=== PATIENT | male | born 1965 | race African-American/Black ===

== ENCOUNTER 2018-05-06 11:07 | Emergency (ER) | payer SELFPAY | END 2018-05-06 11:23 | disposition left against medical advice (07) | LOC: ER 11:07 | DX: R06.02 Shortness of breath (principal); R06.01 Orthopnea; I10 Essential (primary) hypertension; J44.9 Chronic obstructive pulmonary disease, unspecified | CPT/HCPCS: 71045; 93005; 99284 ==

== ENCOUNTER 2018-08-06 09:16 | Emergency (ER) | payer SELFPAY ==
[~2018-08-06] VITALS: Ht 182.9 cm; Wt 102.1 kg
[~2018-08-06 09:16] MED LIST: AMLO10TA4 PO; ASPI-252 PO; ATOR20TA PO; Amoxicillin PO; BREO ELLIPTA 21 EACH IH; CARV12.52 PO; CETI10TA22 PO; CLOP75TA PO; FLUT16SP NS; FURO40TA4 PO; HYDR-2869 PO; HYDR12.58 PO; ISOS30TA4 PO; LISI1TAB7 PO; Lisinopril PO; PROAIR HFA8.5 GM INH
[2018-08-06] MEDS: FUROSEMIDE 20 MG TABLET PO ONE (10:10)
[2018-08-06] MEDS: amLODIPine BESYLATE 5 MG TABLET PO ONE (10:12)
[2018-08-06] MEDS: IPRATRPIUM/ALBUTEROL 0.5/2.5MG 3 ML NEBU. NEB ONE ×2 (10:12→12:19)
[2018-08-06] MEDS: BENZONATATE 100 MG CAPSULE. PO ONE (10:14)
[2018-08-06] MEDS: methylPREDNISolone SOD SUCC PF 125 MG/2 ML VIAL. IV ONE (10:15)
--- NOTE | 2018-08-06 10:15 | RAD ---
Portable chest, 08/06/2018: HISTORY: Shortness of breath, asthma Comparison is made to a study from 07/12/2018. The heart is mildly enlarged. There is tortuosity of the thoracic aorta. There is minimal linear atelectasis or scarring in the left lower chest laterally. No acute infiltrate is seen. There is no evidence of pleural fluid. IMPRESSION: 1. Mild cardiomegaly. 2. Mild linear atelectasis or scarring on the left. Electronically signed by: Nito Wilson MD (08/06/2018 10:12 AM) [facility]
--- NOTE | 2018-08-06 10:33 | EKG ---
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
[2018-08-06 10:37] LABS: BASO % 1 % (0-3); EOS # 0.1 x10^3/uL (0.0-0.7); EOS % 1 % (0-3); HEMATOCRIT 42.3 % (39.0-53.0); HEMOGLOBIN 14.1 g/dL (13.0-17.5); LYMPH # 1.6 x10^3/uL (1.0-4.8); LYMPH % 24 % (24-48); MEAN CORPUSCULAR HEMOGLOBIN 26 pg (25-35); MEAN CORPUSCULAR HGB CONC 33 g/dL (31-37); MEAN CORPUSCULAR VOLUME 77 fL (79-100); MONO # 0.9 x10^3/uL (0.0-1.1); MONO % 13 % (0-9); NEUT # 4.2 x10^3uL (1.8-7.7); NEUT % 61 % (31-73); PLATELET COUNT 287 x10^3/uL (140-400); RED BLOOD COUNT 5.47 x10^6/uL (4.30-5.70); WHITE BLOOD COUNT 6.8 x10^3/uL (4.0-11.0)
[2018-08-06 10:55] LABS: CALCIUM 9.9 mg/dL (8.5-10.1); CREATININE 1.9 mg/dL (0.7-1.3); GFR 45.4; POTASSIUM 3.6 mmol/L (3.5-5.1)
[2018-08-06] MEDS: ASPIRIN 325 MG TABLET PO ONE (12:17)
[2018-08-06] MEDS: cloNIDine HCL 0.1 MG TABLET PO ONE (12:19)
[2018-08-06 12:30] VITALS: BP 166/114
--- NOTE | 2018-08-06 12:43 | PHYS DOC ---
Past Medical History Past Medical History: CHF, COPD, High Cholesterol, Hypertension, [place] Additional Past Medical Histor: UPPER GI BLEED, irregular heart beat, BEV Past Surgical History: Tonsillectomy, Other Additional Past Surgical Histo: cardiac cath with stent placement Alcohol Use: None Drug Use: None Adult General Chief Complaint Chief Complaint: COUGH HPI HPI Patient is a 53 year old male with history of hypertension, COPD current smoker , high cholesterol, who presents today complaining of a productive cough and shortness of breath for 3 days. Patient states he has tried using his inhalers with no relief. He states his shortness of breath is worse after episodes of coughing. Patient denies any fever. Review of Systems Review of Systems Constitutional: Denies fever or chills [] Eyes: Denies change in visual acuity, redness, or eye pain [] HENT: Denies nasal congestion or sore throat [] Respiratory: Reports cough and shortness of breath [] Cardiovascular: No additional information not addressed in HPI [] GI: Denies abdominal pain, nausea, vomiting, bloody stools or diarrhea [] : Denies dysuria or hematuria [] Musculoskeletal: Denies back pain or joint pain [] Integument: Denies rash or skin lesions [] Neurologic: Denies headache, focal weakness or sensory changes [] All other systems were reviewed and found to be within normal limits, except as documented in this note. Current Medications Current Medications Current Medications Medications (Trade) Dose Ordered Sig/[facility] Start Time Stop Time Status Last Admin Dose Admin Albuterol/ Ipratropium (Duoneb) 3 ml 1X ONCE 08/06/18 11:45 08/06/18 11:46 DC 08/06/18 12:19 3 ML Amlodipine Besylate (Norvasc) 10 mg 1X ONCE 08/06/18 10:00 08/06/18 10:01 DC 08/06/18 10:12 10 MG Aspirin (Nilson Aspirin) 325 mg 1X ONCE 08/06/18 11:45 08/06/18 11:46 DC 08/06/18 12:17 325 MG Benzonatate (Tessalon Perle) 100 mg 1X ONCE 08/06/18 09:45 08/06/18 09:46 DC 08/06/18 10:14 100 MG Clonidine HCl (Catapres) 0.2 mg 1X ONCE 08/06/18 11:45 08/06/18 11:46 DC 08/06/18 12:19 0.2 MG Furosemide (Lasix) 20 mg 1X ONCE 08/06/18 10:00 08/06/18 10:01 DC 08/06/18 10:10 20 MG Hydralazine HCl (Apresoline) 50 mg 1X STAT 08/06/18 09:43 08/06/18 09:49 DC 08/06/18 10:11 50 MG Methylprednisolone Sodium Succinate (SOLU-Medrol 125MG VIAL) 125 mg 1X ONCE 08/06/18 09:45 08/06/18 09:46 DC 08/06/18 10:15 125 MG Allergies Allergies Allergies Coded Allergies Type Severity Reaction Last Updated Verified No Known Drug Allergies 05/08/15 No Physical Exam Physical Exam Constitutional: Well developed, well nourished, no acute distress, non-toxic appearance. [] HENT: Normocephalic, atraumatic, bilateral external ears normal, oropharynx moist, no oral exudates, nose normal. [] Eyes: PERRLA, EOMI, conjunctiva normal, no discharge. [] Neck: Normal range of motion, no tenderness, supple, no stridor. [] Cardiovascular:Heart rate regular rhythm, no murmur [] Lungs & Thorax: Diminished breath sounds to posterior lung bases, patient appears short of breath on exertion. Abdomen: Bowel sounds normal, soft, no tenderness, no masses, no pulsatile masses. [] Skin: Warm, dry, no erythema, no rash. [] Back: No tenderness, no CVA tenderness. [] Extremities: No tenderness, no cyanosis, no clubbing, ROM intact, no edema. [] Neurologic: Alert and oriented X 3, normal motor function, normal sensory function, no focal deficits noted. [] Psychologic: Affect normal, judgement normal, mood normal. [] Current Patient Data Vital Signs Vital Signs Date Time Temp Pulse Resp B/P (MAP) Pulse Ox O2 Delivery O2 Flow Rate FiO2 08/06/18 12:30 104 32 166/114 (131) 95 08/06/18 12:20 Room Air 08/06/18 09:18 97.7 97.7 Lab Values Laboratory Tests Test 08/06/18 10:10 White Blood Count 6.8 x10^3/uL (4.0-11.0) Red Blood Count 5.47 x10^6/uL (4.30-5.70) Hemoglobin 14.1 g/dL (13.0-17.5) Hematocrit 42.3 % (39.0-53.0) Mean Corpuscular Volume 77 fL (79-100) L Mean Corpuscular Hemoglobin 26 pg (25-35) Mean Corpuscular Hemoglobin Concent 33 g/dL (31-37) Red Cell Distribution Width 17.0 % (11.5-14.5) H Platelet Count 287 x10^3/uL (140-400) Neutrophils (%) (Auto) 61 % (31-73) Lymphocytes (%) (Auto) 24 % (24-48) Monocytes (%) (Auto) 13 % (0-9) H Eosinophils (%) (Auto) 1 % (0-3) Basophils (%) (Auto) 1 % (0-3) Neutrophils # (Auto) 4.2 x10^3uL (1.8-7.7) Lymphocytes # (Auto) 1.6 x10^3/uL (1.0-4.8) Monocytes # (Auto) 0.9 x10^3/uL (0.0-1.1) Eosinophils # (Auto) 0.1 x10^3/uL (0.0-0.7) Basophils # (Auto) 0.0 x10^3/uL (0.0-0.2) Sodium Level 143 mmol/L (136-145) Potassium Level 3.6 mmol/L (3.5-5.1) Chloride Level 104 mmol/L (98-107) Carbon Dioxide Level 30 mmol/L (21-32) Anion Gap 9 (6-14) Blood Urea Nitrogen 18 mg/dL (8-26) Creatinine 1.9 mg/dL (0.7-1.3) H Estimated GFR (Cockcroft-Gault) 45.4 Glucose Level 100 mg/dL (70-99) H Calcium Level 9.9 mg/dL (8.5-10.1) Magnesium Level 2.0 mg/dL (1.8-2.4) Troponin I Quantitative 0.570 ng/mL (0.000-0.055) FX-Vbw-A-Type Natriuretic Peptide 1707 pg/mL (0-124) H Thyroid Stimulating Hormone (TSH) 0.304 uIU/mL (0.358-3.74) L Laboratory Tests 08/06/18 10:10 Laboratory Tests 08/06/18 10:10 EKG EKG Interpreted by Dr. Amado, sinus tachycardia with left bundle branch block HR 101 no STEMI. EKG compared with previous EKG and it looks better.[] Radiology/Procedures Radiology/Procedures []PROCEDURE: PORTABLE CHEST 1V Portable chest, 08/06/2018: HISTORY: Shortness of breath, asthma Comparison is made to a study from 07/12/2018. The heart is mildly enlarged. There is tortuosity of the thoracic aorta. There is minimal linear atelectasis or scarring in the left lower chest laterally. No acute infiltrate is seen. There is no evidence of pleural fluid. IMPRESSION: 1. Mild cardiomegaly. 2. Mild linear atelectasis or scarring on the left. Electronically signed by: Nito Wilson MD (08/06/2018 10:12 AM) [facility] DICTATED and SIGNED BY: NITO WILSON MD DATE: 08/06/18 1010 Course & Med Decision Making Course & Med Decision Making Pertinent Labs and Imaging studies reviewed. (See chart for details) This is a 53-year-old male patient presenting to the ED today with a productive cough and shortness of breath for 3 days. Has history of COPD, current smoker. Patient was advised again a smoking cessation Chest x-ray interpreted by radiologist was negative for any acute findings. CBC with normal WBC, CMP with creatinine of 1.9 BUN 18. Troponin 0.570, patient states his troponin has been elevated for long time and he follows up with a lead technical architect at [facility] who is planning to do a biopsy on his heart. Patient was given a DuoNeb treatment in the ED. Also given Solu-Medrol. He was still short of air on exertion. He was offered admission, he refused and signed out AMA. He states yesterday take care of the was also a patient is being admitted. His BP is also been an IV in the 170s over 120s. We gave him blood pressure medications in the ED. Talked to patient about admission. He declined. Signed out AMA. Instructed to return to the ED at any point his symptoms worsen. He is alert oriented 4 and able to make decisions on his own. Ingris: Staff Physician Addendum: I was working in the ER during the course of this patient's visit. I was available for consultation as needed, but I was not directly involved in the care of this patient. I was not involved in the against medical advice conversation. Dragon Disclaimer Dragon Disclaimer This electronic medical record was generated, in whole or in part, using a voice recognition dictation system. Departure Departure Impression: Primary Impression: COPD (chronic obstructive pulmonary disease) Additional Impressions: Renal failure (ARF), acute on chronic Shortness of breath Elevated troponin Disposition: AGAINST MEDICAL ADVICE Condition: STABLE Referrals: Simba BAEZA MD (PCP) Scripts Prednisone (PREDNISONE) 50 Mg Tablet 1 TAB PO DAILY, #5 TAB Prov: BRIDGETT JONES APRN 08/06/18 Problem Qualifiers Primary Impression: COPD (chronic obstructive pulmonary disease) COPD type: unspecified COPD Qualified Codes: J44.9 - Chronic obstructive pulmonary disease, unspecified Additional Impressions: Renal failure (ARF), acute on chronic Acute renal failure type: unspecified Chronic kidney disease stage: unspecified stage Qualified Codes: N17.9 - Acute kidney failure, unspecified; N18.9 - Chronic kidney disease, unspecified BRIDGETT JONES APRN Aug 06, 2018 12:43 FABIAN AMADO MD Aug 06, 2018 17:57
[2018-08-06] MEDS ORDERED: PRED50TA PO (13:08)
[2018-08-07] MEDS ORDERED: VENTOLIN HFA18 GM INH (20:27)
[2018-08-07] MEDS ORDERED: PRED20TA PO (20:27)
[2018-08-10] MEDS ORDERED: PRED20TA PO (15:29)
[2018-08-10] MEDS ORDERED: DOXY100T PO (15:29)
== END 2018-08-06 13:02 | disposition left against medical advice (07) ==
LOC: ER 09:16
DX: J44.9 Chronic obstructive pulmonary disease, unspecified (principal); R79.89 Other specified abnormal findings of blood chemistry; I13.0 Hypertensive heart and chronic kidney disease with heart failure and stage 1 through stage 4 chronic kidney disease, or unspecified chronic kidney disease; N18.9 Chronic kidney disease, unspecified; I50.9 Heart failure, unspecified; N17.9 Acute kidney failure, unspecified; I25.2 Old myocardial infarction; E78.00 Pure hypercholesterolemia, unspecified; G47.33 Obstructive sleep apnea (adult) (pediatric); Z90.89 Acquired absence of other organs
CPT/HCPCS: 36415; 71045; 80048; 83735; 83880; 84443; 84484; 85025; 93005; 94640; 96374; 99285; J2930; J7620

== ENCOUNTER 2018-08-07 16:20 | Emergency (ER) | payer SELFPAY ==
[~2018-08-07] VITALS: Ht 180.3 cm; Wt 102.1 kg
[~2018-08-07 16:20] MED LIST changes: +PRED50TA PO
[2018-08-07] MEDS: IPRATRPIUM/ALBUTEROL 0.5/2.5MG 3 ML NEBU. NEB ONE (16:37)
[2018-08-07] MEDS: ALBUTEROL SULFATE 2.5 MG/3 ML NEBU. NEB ONE (17:00)
[2018-08-07] MEDS: methylPREDNISolone SOD SUCC PF 125 MG/2 ML VIAL. IV ONE (17:20)
[2018-08-07] MEDS: AZITHROMYCIN 250 MG TABLET. PO ONE (17:20)
[2018-08-07] MEDS: ALBUTEROL SULFATE 2.5 MG/3 ML NEBU. CONT NEB ONE (17:21)
--- NOTE | 2018-08-07 17:45 | RAD ---
PORTABLE CHEST 1V Clinical Indication: Dyspnea, hx of COPD Comparison: AP chest, prior day. Findings: Stable mild cardiomegaly. Mildly tortuous thoracic aorta. Reticular opacity in the right lung base is probably atelectasis. Lungs are otherwise clear. Discoid atelectasis in the lateral left lung on prior study has resolved. There is no pneumothorax. No pleural effusion is appreciated. No acute bone abnormality. IMPRESSION: Reticular opacity in the right lung base is probably atelectasis. Electronically signed by: Wan Alonzo MD (08/07/2018 5:41 PM) [id number]
--- NOTE | 2018-08-07 17:54 | PHYS DOC ---
Past Medical History Past Medical History: CHF, COPD, Hypertension Additional Past Medical Histor: UPPER GI BLEED, irregular heart beat, BEV Past Surgical History: No Surgical History Additional Past Surgical Histo: cardiac cath with stent placement Additional Information: 5 CIGS/DAY Alcohol Use: None Drug Use: None Adult General Chief Complaint Chief Complaint: SHORTNESS OF BREATH HPI HPI Patient is a 53 year old male who presents with COPD flare. Patient states he has been visiting a family member in the hospital today and has not been able to take his COPD medications. He presents to the ER with acute shortness of breath. Patient normally does use inhaled steroids at home and scheduled albuterol treatments. He does endorse some increased cough lately compared to normal. No fever or chills. He does not have chest pain. No orthopnea or lower extremity edema. Review of Systems Review of Systems Constitutional: Denies fever or chills Eyes: Denies HENT: Denies Respiratory: as documented above Cardiovascular: No additional information GI: Denies abdominal pain : Denies dysuria or hematuria Musculoskeletal: Denies back pain Integument: Denies rash Neurologic: Denies headache Endocrine: Denies polyuria All other systems were reviewed and found to be within normal limits, except as documented in this note. Current Medications Current Medications Current Medications Medications (Trade) Dose Ordered Sig/Deepa Start Time Stop Time Status Last Admin Dose Admin Albuterol Sulfate (Ventolin Neb Soln) 10 mg 1X ONCE 08/07/18 17:00 08/07/18 17:01 DC 08/07/18 17:21 10 MG Albuterol/ Ipratropium (Duoneb) 3 ml 1X ONCE 08/07/18 16:30 08/07/18 17:00 DC 08/07/18 16:37 3 ML Azithromycin (Zithromax) 500 mg 1X ONCE 08/07/18 17:15 08/07/18 17:16 DC 08/07/18 17:20 500 MG Furosemide (Lasix) 40 mg 1X ONCE 08/07/18 18:45 08/07/18 18:48 DC 08/07/18 19:20 40 MG Hydralazine HCl (Apresoline) 50 mg 1X STAT 08/07/18 18:59 08/07/18 19:01 DC 08/07/18 19:22 50 MG Methylprednisolone Sodium Succinate (SOLU-Medrol 125MG VIAL) 125 mg 1X ONCE 08/07/18 17:15 08/07/18 17:16 DC 08/07/18 17:20 125 MG Nitroglycerin (Nitro-Bid Oint) 2 inch 1X STAT 08/07/18 18:44 08/07/18 18:48 DC 08/07/18 19:21 2 INCH Allergies Allergies Allergies Coded Allergies Type Severity Reaction Last Updated Verified No Known Drug Allergies 05/08/15 No Physical Exam Physical Exam Constitutional: Well developed, well nourished, moderate respiratory distress HENT: Normocephalic, atraumatic, bilateral external ears normal Eyes: PERRLA, EOMI Neck: Normal range of motion, no JVD Cardiovascular:Heart rate regular rhythm Lungs & Thorax: wheezes in all [place] and diminished air movement, moderate increased work of breathing Abdomen: Bowel sounds normal, soft, no tenderness Skin: Warm, dry Extremities: No edema Neurologic: Alert and oriented X 3 Psychologic: Affect normal Current Patient Data Vital Signs Vital Signs Date Time Temp Pulse Resp B/P (MAP) Pulse Ox O2 Delivery O2 Flow Rate FiO2 08/07/18 19:39 94 18 164/117 (133) 94 Room Air 08/07/18 16:37 97.7 97.7 Lab Values Laboratory Tests Test 08/07/18 16:30 White Blood Count 13.9 x10^3/uL (4.0-11.0) H Red Blood Count 5.65 x10^6/uL (4.30-5.70) Hemoglobin 14.5 g/dL (13.0-17.5) Hematocrit 44.5 % (39.0-53.0) Mean Corpuscular Volume 79 fL (79-100) Mean Corpuscular Hemoglobin 26 pg (25-35) Mean Corpuscular Hemoglobin Concent 33 g/dL (31-37) Red Cell Distribution Width 17.6 % (11.5-14.5) H Platelet Count 306 x10^3/uL (140-400) Neutrophils (%) (Auto) 65 % (31-73) Lymphocytes (%) (Auto) 25 % (24-48) Monocytes (%) (Auto) 9 % (0-9) Eosinophils (%) (Auto) 0 % (0-3) Basophils (%) (Auto) 0 % (0-3) Neutrophils # (Auto) 9.0 x10^3uL (1.8-7.7) H Lymphocytes # (Auto) 3.5 x10^3/uL (1.0-4.8) Monocytes # (Auto) 1.3 x10^3/uL (0.0-1.1) H Eosinophils # (Auto) 0.0 x10^3/uL (0.0-0.7) Basophils # (Auto) 0.1 x10^3/uL (0.0-0.2) Sodium Level 142 mmol/L (136-145) Potassium Level 4.1 mmol/L (3.5-5.1) Chloride Level 103 mmol/L (98-107) Carbon Dioxide Level 29 mmol/L (21-32) Anion Gap 10 (6-14) Blood Urea Nitrogen 30 mg/dL (8-26) H Creatinine 1.9 mg/dL (0.7-1.3) H Estimated GFR (Cockcroft-Gault) 45.4 Glucose Level 105 mg/dL (70-99) H Calcium Level 9.3 mg/dL (8.5-10.1) Troponin I Quantitative 0.517 ng/mL (0.000-0.055) IM-Zjk-V-Type Natriuretic Peptide 1111 pg/mL (0-124) H Laboratory Tests 08/07/18 16:30 Laboratory Tests 08/07/18 16:30 EKG EKG ECG 19:16 ST @[address]-T wave changes Radiology/Procedures Radiology/Procedures Findings: Stable mild cardiomegaly. Mildly tortuous thoracic aorta. Reticular opacity in the right lung base is probably atelectasis. Lungs are otherwise clear. Discoid atelectasis in the lateral left lung on prior study has resolved. There is no pneumothorax. No pleural effusion is appreciated. No acute bone abnormality. IMPRESSION: Reticular opacity in the right lung base is probably atelectasis. Course & Med Decision Making Course & Med Decision Making Pertinent Labs and Imaging studies reviewed. (See chart for details) Emergency Department course Patient presents with SOB DDx- COPD exacerbation, CHF, ACS, pneumonia, PE Patient is evaluated on arrival to the ER. He is having COPD exacerbation. He was ordered to have Solu-Medrol and azithromycin. Chest x-ray ordered. 17:30: Continued wheezes and increased respiratory distress. Additional hour- long nebulized treatment is ordered. Chest x-ray as documented above. Would treat this patient for pneumonia. He was already given azithromycin. 18:00: Transfer of care to Dr. Rondon. Please f/u on symptom relief. Patient can be discharged home if improved. 18:45 Patient assessed and he has increased work of breathing with coarse breath sounds bilaterally. Patient in addition having COPD also has a history of CHF and takes 40 mg of Lasix twice daily with hydralazine. He doesn't take TYRELL inhibitors, because of TYRELL inhibitor induced angioedema. The patient is hypertensive and I will give him oral hydralazine, (IV hydralazine is not available currently), Nitropaste to chest wall and Lasix to improve blood pressure, preload and afterload reduction. Will reassess after treatment. 19:45 Patient feels better with decreased shortness breath and decreased work of breathing. Blood pressure has decreased though he still hypertensive. I spoke with the patient and offered him admission to the hospital. He refused admission. I gave him informed refusal and stated that he is at high risk for noting that he has elevated troponin, uncontrolled hypertension and likely underlying congestive heart failure causing his symptoms. He understood these risks of and signed out AGAINST MEDICAL ADVICE. Dragon Disclaimer Dragon Disclaimer This electronic medical record was generated, in whole or in part, using a voice recognition dictation system. Departure Departure Impression: Primary Impression: Acute exacerbation of COPD with asthma Additional Impressions: CHF (congestive heart failure) Hypertensive emergency Refuses treatment Left against medical advice Disposition: 07 AGAINST MEDICAL ADVICE Condition: GUARDED (Offered admission. Patient has hypertensive emergency with COPD, CHF,elevated troponin, renal insufficiency) Referrals: Simba BAEZA MD (PCP) Follow-up with your doctor tomorrow Patient Instructions: Chronic Obstructive Pulmonary Disease Exacerbation, Heart Failure, Hypertension Additional Instructions: If you develop worse shortness of breath, chest pain, weakness, fevers return to the emergency department immediately Scripts Albuterol Sulfate (VENTOLIN HFA INHALER) 18 Gm Hfa.aer.ad 2 PUFF INH Q4HRS for FOR ASTHMA for 20 Days, #1 INHALER 0 Refills Prov: NAKIA RONDON MD 08/07/18 Prednisone (PREDNISONE) 20 Mg Tablet 2 TAB PO DAILY, #10 TAB Prov: NAKIA RONDON MD 9/25/18 Problem Qualifiers HARJINDER BALL DO Aug 07, 2018 17:54 NAKIA RONDON MD Aug 07, 2018 18:52
[2018-08-07 17:56] LABS: BASO # 0.1 x10^3/uL (0.0-0.2); BASO % 0 % (0-3); EOS % 0 % (0-3); HEMATOCRIT 44.5 % (39.0-53.0); HEMOGLOBIN 14.5 g/dL (13.0-17.5); LYMPH # 3.5 x10^3/uL (1.0-4.8); LYMPH % 25 % (24-48); MEAN CORPUSCULAR HEMOGLOBIN 26 pg (25-35); MEAN CORPUSCULAR HGB CONC 33 g/dL (31-37); MEAN CORPUSCULAR VOLUME 79 fL (79-100); MONO # 1.3 x10^3/uL (0.0-1.1); MONO % 9 % (0-9); NEUT % 65 % (31-73); PLATELET COUNT 306 x10^3/uL (140-400); RED BLOOD COUNT 5.65 x10^6/uL (4.30-5.70); RED CELL DISTRIBUTION WIDTH 17.6 % (11.5-14.5); WHITE BLOOD COUNT 13.9 x10^3/uL (4.0-11.0)
[2018-08-07 18:07] LABS: CALCIUM 9.3 mg/dL (8.5-10.1); CREATININE 1.9 mg/dL (0.7-1.3); GFR 45.4; POTASSIUM 4.1 mmol/L (3.5-5.1)
[2018-08-07] MEDS: FUROSEMIDE 40 MG/4 ML VIAL. IVP ONE (19:20)
[2018-08-07] MEDS: NITROGLYCERIN OINT 1 GM PACKET. TP STA (19:21)
[2018-08-07 19:39] VITALS: BP 164/117
--- NOTE | 2018-08-07 20:11 | EKG ---
[facility] [address] [place] [address] Test Date: 2018-08-07 Test Time: 19:13:00 Pat Name: KIRBY GARCIA Department: Room: Gender: M [employer] Feeder: : 1965 Requested By: NAKIA ALONSO Order Number: [id number] Reading MD: Og Romero Measurements Intervals [place] Rate: 102 P: 62 OR: 136 QRS: -43 QRSD: 104 T: 80 QT: 350 QTc: 460 Interpretive Statements SINUS TACHYCARDIA ATRIAL PREMATURE COMPLEX(ES) ABNORMAL LEFT AXIS DEVIATION R-S TRANSITION ZONE IN V LEADS DISPLACED TO THE LEFT LEFT ANTERIOR FASCICULAR BLOCK LEFT VENTRICULAR HYPERTROPHY QRS(T) CONTOUR ABNORMALITY CONSIDER ANTEROSEPTAL MYOCARDIAL DAMAGE T ABNORMALITY IN HIGH LATERAL LEADS ABNORMAL ECG Electronically Signed On 08-08-2018 15:26:36 CDT by Og Romero
[2018-08-07] MEDS ORDERED: VENTOLIN HFA18 GM INH (20:27)
[2018-08-07] MEDS ORDERED: PRED20TA PO (20:27)
[2018-08-10] MEDS ORDERED: PRED20TA PO (15:29)
[2018-08-10] MEDS ORDERED: DOXY100T PO (15:29)
== END 2018-08-07 20:36 | disposition left against medical advice (07) ==
LOC: ER 16:20
DX: J44.1 Chronic obstructive pulmonary disease with (acute) exacerbation (principal); I16.1 Hypertensive emergency; I11.0 Hypertensive heart disease with heart failure; I50.9 Heart failure, unspecified; F17.210 Nicotine dependence, cigarettes, uncomplicated; G47.33 Obstructive sleep apnea (adult) (pediatric); Z53.20 Procedure and treatment not carried out because of patient's decision for unspecified reasons
CPT/HCPCS: 36415; 71045; 80048; 83880; 84484; 85025; 93005; 94640; 96374; 96375; 99285; J1940; J2930; J7613; J7620; Q0144

== ENCOUNTER 2018-12-21 06:47 | Inpatient (IN) | payer SELFPAY ==
[2018-12-21] VITALS (17 sets, daily range): BP systolic 92–163; BP diastolic 67–108
[~2018-12-21] VITALS: Ht 165.1 cm; Wt 88.6 kg
[~2018-12-21 06:47] MED LIST changes: +ALBU2.5V8 INH; +AMLO10TA8 PO; +ASPI-630 PO; +CARV12.511 PO; -CARV12.52 PO; +DOXY100T PO; +PRED20TA PO; -PROAIR HFA8.5 GM INH; +Pantoprazole PO; +VENTOLIN HFA18 GM INH
[2018-12-21] MEDS ORDERED: IPRATROPIUM BROMIDE 0.5 MG/2.5 ML NEBU. NEB ONE (07:00)
[2018-12-21] MEDS ORDERED: MAGNESIUM SULFATE 2GM 50 ML IV ONE (07:00)
[2018-12-21] MEDS ORDERED: methylPREDNISolone SOD SUCC PF 125 MG/2 ML VIAL. IV ONE (07:00)
[2018-12-21] MEDS ORDERED: ALBUTEROL SULFATE 2.5 MG/3 ML NEBU. CONT NEB ONE (07:00)
[2018-12-21 07:06] LABS: BASE EXCESS ABG -18 mmol/L (-3-3); HCO3 ABG 16 mmol/L (21-28); PO2 ABG 153 mmHg (75-108); SAT O2 ABG 97 % (92-99)
[2018-12-21 07:17] LABS: BASO # 0.1 x10^3/uL (0.0-0.2); BASO % 1 % (0-3); EOS # 0.1 x10^3/uL (0.0-0.7); EOS % 1 % (0-3); HEMATOCRIT 34.9 % (39.0-53.0); HEMOGLOBIN 9.7 g/dL (13.0-17.5); LYMPH # 4.5 x10^3/uL (1.0-4.8); LYMPH % 34 % (24-48); MEAN CORPUSCULAR HEMOGLOBIN 19 pg (25-35); MEAN CORPUSCULAR HGB CONC 28 g/dL (31-37); MEAN CORPUSCULAR VOLUME 68 fL (79-100); MONO # 0.9 x10^3/uL (0.0-1.1); MONO % 7 % (0-9); NEUT # 7.5 x10^3uL (1.8-7.7); NEUT % 57 % (31-73); PLATELET COUNT 377 x10^3/uL (140-400); RED BLOOD COUNT 5.16 x10^6/uL (4.30-5.70); RED CELL DISTRIBUTION WIDTH 23.6 % (11.5-14.5); WHITE BLOOD COUNT 13.2 x10^3/uL (4.0-11.0)
[2018-12-21] MEDS ORDERED: PROPOFOL 50 ML IV ONE ×2 (07:21→09:55)
[2018-12-21] MEDS ORDERED: ETOMIDATE 20 MG/10 ML VIAL. IV ONE ×2 (07:21→08:20)
[2018-12-21 07:22] LABS: CALCIUM 9.7 mg/dL (8.5-10.1); CREATININE 2.1 mg/dL (0.7-1.3); GFR 40.5; POTASSIUM 3.8 mmol/L (3.5-5.1)
[2018-12-21] MEDS ORDERED: VECURONIUM BOLUS 10 MG VIAL. IV ONE ×3 (07:22→08:20)
[2018-12-21] MEDS ORDERED: MIDAZOLAM HCL/PF 5 MG/5 ML VIAL. IV ONE ×2 (07:24→08:45)
[2018-12-21] MEDS ORDERED: IV NORMAL SALINE 1000ML BAG 1,000 ML IV ONE (07:30)
[2018-12-21] MEDS ORDERED: PROPOFOL 100 ML IV PRN (07:30)
[2018-12-21 07:36] LABS: ALBUMIN 3.2 g/dL (3.4-5.0); ALBUMIN/GLOBULIN RATIO 0.7 (1.0-1.7); TOTAL BILIRUBIN 0.5 mg/dL (0.2-1.0); TOTAL PROTEIN 7.5 g/dL (6.4-8.2)
[2018-12-21 07:43] LABS: ANISOCYTOSIS MOD; PLT ESTIMATE ADEQUATE (ADEQUATE)
[2018-12-21 07:44] LABS: MICROCYTOSIS PRESENT; POLYCHROMASIA OCCASIONAL
[2018-12-21] MEDS ORDERED: SODIUM BICARBONATE VIAL 150 MEQ in IV STERILE WATER 1,000 ML IV ONE (07:45)
[2018-12-21 07:46] LABS: OVALOCYTES OCC
--- NOTE | 2018-12-21 07:59 | RAD ---
Examination: PORTABLE CHEST 1V History: dyspnea Comparison/Correlation: 10/09/2018 two-view chest x-ray exam Findings: Portable frontal view chest was obtained. Heart size is borderline but this may be in part technique related. Bony vasculature is mildly congested. No pneumothorax. Very small pleural effusions are suspected. Impression: Congestive heart failure. Very small pleural effusions. Electronically signed by: Cj Franklin MD (12/21/2018 7:55 AM) [facility]
--- NOTE | 2018-12-21 08:04 | RAD ---
CHEST AP ONLY History: POST INTUBATION Comparison: Exam earlier the same day Findings: Single view of the chest is submitted. There is now endotracheal tube with tip about 4 to 5 cm from yue. There is now enteric catheter, tip coursing into region of the stomach although may be at the gastroesophageal junction, otherwise difficult to visualize. There is fairly prominent airspace opacity of the right hemithorax overall increased in the short-term interval greatest of mid right hemithorax and perihilar region. There is also interstitial opacity of the bilateral lung bases. No pneumothorax is identified. There may be trace pleural effusions bilaterally. Pericardial cardiac silhouette is again enlarged. Impression: 1. There is now endotracheal tube and enteric catheter, tip of enteric catheter which may terminate near the gastroesophageal junction although otherwise difficult to visualize. There is interval increased airspace opacity of the right hemithorax greatest in the perihilar region which may be due to to edema given progression in the short-term interval although underlying infiltrate not excluded. There is also bibasilar interstitial opacity which could be due to interstitial edema and suspected trace pleural effusions. Given the enlarged pericardial cardiac silhouette, constellation of findings could be related to left ventricular failure. Electronically signed by: Davey Sow MD (12/21/2018 7:59 AM) [id number]
[2018-12-21] MEDS ORDERED: MIDAZOLAM HCL/PF 5 MG/5 ML VIAL. ONE (08:21)
[2018-12-21] MEDS ORDERED: FUROSEMIDE 100 MG/10 ML VIAL. ONE (08:36)
--- NOTE | 2018-12-21 08:44 | PHYS DOC ---
Past Medical History Past Medical History: CHF, COPD, Hypertension Additional Past Medical Histor: UPPER GI BLEED, irregular heart beat, BEV Past Surgical History: No Surgical History Additional Past Surgical Histo: cardiac cath with stent placement Alcohol Use: None Drug Use: None Adult General Chief Complaint Chief Complaint: DYSPNEA/RESPIRATOY DISTRESS HPI HPI Patient is a 53-year-old male who presents via EMS with respiratory distress. EMS reports that call had gone out for chest pain but by the time they had arrived, patient was clearly in respiratory distress. They indicate that they had tried to place patient on BiPAP but he was combative and pulled the BiPAP off. Upon patient's arrival, nursing staff indicates the patient's initial saturation was 39%. Shortly after arrival, patient's respirations became diminished and patient was initiated on BiPAP right away. Patient's middle status had improved and was assisting with BiPAP respirations. Additional history is limited due to patient's initial mental state on arriving to the emergency room. Review of Systems Review of Systems Respiratory: Positive shortness of breath [] Cardiovascular: No additional information not addressed in HPI [] Neurologic: Positive mental status changes [] Unable to fully assess review of systems due to altered mental state. Current Medications Current Medications Current Medications Medications (Trade) Dose Ordered Sig/Deepa Start Time Stop Time Status Last Admin Dose Admin Albuterol Sulfate (Ventolin Neb Soln) 10 mg 1X ONCE 12/21/18 07:00 12/21/18 07:03 DC 12/21/18 08:45 10 MG Etomidate (Amidate) 25 mg 1X ONCE 12/21/18 07:21 12/21/18 08:39 DC 12/21/18 07:21 25 MG Furosemide (Lasix) 100 mg STK-MED ONCE 12/21/18 08:36 12/21/18 08:39 DC Ipratropium [place] (Atrovent) 0.5 mg 1X ONCE 12/21/18 07:00 12/21/18 07:03 DC 12/21/18 08:48 0.5 MG Magnesium Sulfate 50 ml @ 25 mls/hr 1X ONCE 12/21/18 07:00 12/21/18 08:59 DC 12/21/18 07:56 25 MLS/HR Methylprednisolone Sodium Succinate (SOLU-Medrol 125MG VIAL) 125 mg 1X ONCE 12/21/18 07:00 12/21/18 07:03 DC 12/21/18 08:05 125 MG Metoprolol Tartrate (Lopressor Vial) 5 mg 1X ONCE 12/21/18 08:45 12/21/18 08:46 DC Midazolam HCl (Versed) 5 mg 1X ONCE 12/21/18 09:45 12/21/18 09:48 DC 12/21/18 09:48 5 MG Propofol 50 ml @ As Directed STK-MED ONCE 12/21/18 09:55 12/21/18 09:57 DC Sodium Bicarbonate 150 meq/Sterile Water 1,150 ml @ 125 mls/hr 1X ONCE 12/21/18 07:45 12/21/18 16:56 DC 12/21/18 07:57 125 MLS/HR Sodium Chloride 1,000 ml @ 1,000 mls/hr 1X ONCE 12/21/18 07:30 12/21/18 08:29 DC 12/21/18 07:00 1,000 MLS/HR Vecuronium [place] (Norcuron Bolus) 10 mg 1X ONCE 12/21/18 07:25 12/21/18 08:39 DC 12/21/18 07:25 10 MG Allergies Allergies Allergies Coded Allergies Type Severity Reaction Last Updated Verified lisinopril Allergy Severe Swelling 08/09/18 Yes Physical Exam Physical Exam Constitutional: Well developed, well nourished, in moderate respiratory distress. [] HENT: Normocephalic, atraumatic, bilateral external ears normal, oropharynx moist, no oral exudates, nose normal. [] Eyes: PERRLA, EOMI, conjunctiva normal, no discharge. [] Neck: Normal range of motion, supple, no stridor. [] Cardiovascular: Tachycardic rate with regular rhythm [] Lungs & Thorax: Diminished breath sounds are noted throughout both lung estrada. There are rales noted in the lung bases bilaterally to auscultation [] Abdomen: Bowel sounds normal, soft, no tenderness. [] Skin: Warm, dry, no erythema, no rash. [] Extremities: No tenderness, no clubbing, ROM intact, no edema. [] Neurologic: Disoriented �3, normal motor function. [] Current Patient Data Vital Signs Vital Signs Date Time Temp Pulse Resp B/P (MAP) Pulse Ox O2 Delivery O2 Flow Rate FiO2 12/21/18 09:50 90 142/97 (112) 100 Ventilator 12/21/18 06:55 97.7 26 97.7 Lab Values Laboratory Tests Test 12/21/18 06:55 12/21/18 07:02 12/21/18 07:05 12/21/18 07:48 White Blood Count 13.2 x10^3/uL (4.0-11.0) H Red Blood Count 5.16 x10^6/uL (4.30-5.70) Hemoglobin 9.7 g/dL (13.0-17.5) L Hematocrit 34.9 % (39.0-53.0) L Mean Corpuscular Volume 68 fL (79-100) L Mean Corpuscular Hemoglobin 19 pg (25-35) L Mean Corpuscular Hemoglobin Concent 28 g/dL (31-37) L Red Cell Distribution Width 23.6 % (11.5-14.5) H Platelet Count 377 x10^3/uL (140-400) Neutrophils (%) (Auto) 57 % (31-73) Lymphocytes (%) (Auto) 34 % (24-48) Monocytes (%) (Auto) 7 % (0-9) Eosinophils (%) (Auto) 1 % (0-3) Basophils (%) (Auto) 1 % (0-3) Neutrophils # (Auto) 7.5 x10^3uL (1.8-7.7) Lymphocytes # (Auto) 4.5 x10^3/uL (1.0-4.8) Monocytes # (Auto) 0.9 x10^3/uL (0.0-1.1) Eosinophils # (Auto) 0.1 x10^3/uL (0.0-0.7) Basophils # (Auto) 0.1 x10^3/uL (0.0-0.2) Platelet Estimate Adequate (ADEQUATE) Polychromasia Occasional Anisocytosis Mod Microcytosis Present Ovalocytes Occ Sodium Level 144 mmol/L (136-145) Potassium Level 3.8 mmol/L (3.5-5.1) Chloride Level 108 mmol/L (98-107) H Carbon Dioxide Level 20 mmol/L (21-32) L Anion Gap 16 (6-14) H Blood Urea Nitrogen 23 mg/dL (8-26) Creatinine 2.1 mg/dL (0.7-1.3) H Estimated GFR (Cockcroft-Gault) 40.5 BUN/Creatinine Ratio 11 (6-20) Glucose Level 185 mg/dL (70-99) H Lactic Acid Level 7.1 mmol/L (0.4-2.0) *H Calcium Level 9.7 mg/dL (8.5-10.1) Total Bilirubin 0.5 mg/dL (0.2-1.0) Aspartate Amino Transferase (AST) 45 U/L (15-37) H Alanine Aminotransferase (ALT) 32 U/L (16-63) Alkaline Phosphatase 99 U/L (46-116) Troponin I Quantitative 0.299 ng/mL (0.000-0.055) BH-Svo-V-Type Natriuretic Peptide 5034 pg/mL (0-124) H Total Protein 7.5 g/dL (6.4-8.2) Albumin 3.2 g/dL (3.4-5.0) L Albumin/Globulin Ratio 0.7 (1.0-1.7) L Glucose (Fingerstick) 147 mg/dL (70-99) H O2 Saturation 97 % (92-99) Arterial Blood pH 6.90 (7.35-7.45) *L Arterial Blood pCO2 at Patient Temp 81 mmHg (35-46) *H Arterial Blood pO2 at Patient Temp 153 mmHg (75-108) H Arterial Blood HCO3 16 mmol/L (21-28) L Arterial Blood Base Excess -18 mmol/L (-3-3) L FiO2 100 Urine Opiates Screen Neg (NEG) Urine Methadone Screen Neg (NEG) Urine Barbiturates Neg (NEG) Urine Phencyclidine Screen Neg (NEG) Urine Amphetamine/Methamphetamine Neg (NEG) Urine Benzodiazepines Screen Neg (NEG) Urine Cocaine Screen Pos (NEG) Urine Cannabinoids Screen Neg (NEG) Urine Ethyl Alcohol Neg (NEG) Test 12/21/18 09:00 O2 Saturation 88 % (92-99) L Arterial Blood pH 7.27 (7.35-7.45) L Arterial Blood pCO2 at Patient Temp 48 mmHg (35-46) H Arterial Blood pO2 at Patient Temp 68 mmHg (75-108) L Arterial Blood HCO3 21 mmol/L (21-28) Arterial Blood Base Excess -6 mmol/L (-3-3) L FiO2 70 Laboratory Tests 12/21/18 06:55 Laboratory Tests 12/21/18 06:55 EKG EKG [] Radiology/Procedures Radiology/Procedures [] Impressions: CHEST AP ONLY History: POST INTUBATION Comparison: Exam earlier the same day Findings: Single view of the chest is submitted. There is now endotracheal tube with tip about 4 to 5 cm from yue. There is now enteric catheter, tip coursing into region of the stomach although may be at the gastroesophageal junction, otherwise difficult to visualize. There is fairly prominent airspace opacity of the right hemithorax overall increased in the short-term interval greatest of mid right hemithorax and perihilar region. There is also interstitial opacity of the bilateral lung bases. No pneumothorax is identified. There may be trace pleural effusions bilaterally. Pericardial cardiac silhouette is again enlarged. Impression: 1. There is now endotracheal tube and enteric catheter, tip of enteric catheter which may terminate near the gastroesophageal junction although otherwise difficult to visualize. There is interval increased airspace opacity of the right hemithorax greatest in the perihilar region which may be due to to edema given progression in the short-term interval although underlying infiltrate not excluded. There is also bibasilar interstitial opacity which could be due to interstitial edema and suspected trace pleural effusions. Given the enlarged pericardial cardiac silhouette, constellation of findings could be related to left ventricular failure. Electronically signed by: Davey Sow MD (12/21/2018 7:59 AM) [facility] Course & Med Decision Making Course & Med Decision Making Pertinent Labs and Imaging studies reviewed. (See chart for details) Patient moved to room upon arrival was evaluated by your medical staff while simultaneously, patient placed on BiPAP. It quickly became evident that patient was not going to be able to maintain his airway for extended period of time, and at this time, it was decided patient would best benefit from intubation, especially after reviewing initial blood gas. At this point, patient was prepped for intubation and was pretreated with etomidate and vecuronium. Patient was subsequently intubated via glide scope with insertion of 7.5 ET tube. Portable chest x-ray demonstrated good placement of ET tube. Endotracheal Intubation by me: Pre assessment performed. See preceding note for details. Pre-oxygenation performed with 100% oxygen RSI: Performed w/o complication or hypoxic events. Medications as ordered. Blade: [place] scope ET Tube: 7.5 cm Depth: 24 cm at the lip Intubation confirmed by colorimetric CO2, equal breath sounds, quiet over the stomach. Patient's case was quickly discussed with on-call chemistry professor, Dr. Dumont, who had agreed with intubation of this patient. Upon completion of workup, patient' s case was discussed with hospitalist and patient admitted to ICU. A total of 45 minutes of critical care time, exclusive of separately billable procedures, was spent on this patient. This time was inclusive of direct face-to -face patient care, discussion of patient's case with consultants, ordering and reviewing of both radiological and laboratory studies, and finally on documentation of this patient's medical record. Dragon Disclaimer Dragon Disclaimer This electronic medical record was generated, in whole or in part, using a voice recognition dictation system. Departure Departure Impression: Primary Impression: Acute hypercapnic respiratory failure Additional Impressions: Respiratory acidosis CHF (congestive heart failure) Disposition: 09 ADMITTED INPATIENT Admitting Physician: Other Condition: GUARDED Referrals: UNKNOWN PCP NAME (PCP) Problem Qualifiers Additional Impressions: CHF (congestive heart failure) Heart failure type: unspecified Heart failure chronicity: unspecified Qualified Codes: I50.9 - Heart failure, unspecified ROBIN ALMEIDA Jr. DO Dec 21, 2018 08:44
[2018-12-21] MEDS ORDERED: METOPROLOL TARTRATE 5 MG/5 ML VIAL. IVP ONE (08:45)
[2018-12-21] MEDS ORDERED: FUROSEMIDE 40 MG/4 ML VIAL. IVP ONE (08:45)
[2018-12-21 09:02] LABS: BASE EXCESS ABG -6 mmol/L (-3-3); HCO3 ABG 21 mmol/L (21-28); PCO2 ABG 48 mmHg (35-46); PO2 ABG 68 mmHg (75-108); SAT O2 ABG 88 % (92-99)
[2018-12-21 09:36] LABS: PCO2 ABG 81 mmHg (35-46)
[2018-12-21 09:37] LABS: FIO2 ABG 100
[2018-12-21 09:38] LABS: FIO2 ABG 70
[2018-12-21] MEDS ORDERED: MIDAZOLAM HCL/PF 5 MG/5 ML VIAL. NS ONE ×2 (09:45→11:30)
--- NOTE | 2018-12-21 11:20 | EKG ---
[facility] [address] [place] [address] Test Date: 2018-12-21 Test Time: 06:52:55 Pat Name: KIRBY GARCIA Department: Room: 111 1 Gender: M Spring Winder: : 1965 Requested By: ROBIN ALMEIDA Order Number: [id number] Reading MD: Sergio Caro MD Measurements Intervals [place] Rate: 116 P: [place]: QRS: -71 QRSD: 100 T: 65 QT: 324 QTc: 456 Interpretive Statements SR LAD NON-SPECIFIC ST/T CHANGES Electronically Signed On 12-27-2018 9:09:49 WARPER FIXER by Sergio Caro MD
[2018-12-21 11:36] LABS: INFLUENZA A PATIENT NEGATIVE (NEGATIVE); INFLUENZA B PATIENT NEGATIVE (NEGATIVE)
[2018-12-21 11:51] LABS: BASE EXCESS ABG -4 mmol/L (-3-3); HCO3 ABG 21 mmol/L (21-28); PCO2 ABG 36 mmHg (35-46); PO2 ABG 185 mmHg (75-108); SAT O2 ABG 99 % (92-99)
[2018-12-21 11:55] LABS: FIO2 ABG 70
--- NOTE | 2018-12-21 11:59 | CONS ---
DATE OF CONSULTATION: ATTENDING PHYSICIAN: Dr. Joe Cisse. REASON FOR CONSULTATION: Respiratory failure, abnormal chest x-ray. HISTORY OF PRESENT ILLNESS: The patient is a 53-year-old who has history of cardiomyopathy with an EF of 40%-45% and grade 4 diastolic dysfunction. 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 The patient has history of CAD and PCI. He was last admitted in September for chest pain and was found to be in congestive heart failure. He was brought back again in respiratory distress. He has also had chest pain as well on arrival. The patient's saturations were 39% on arrival. Initial arterial blood gases reveal a pH of 6.9 with a pCO2 of 81 and a pO2 of 153 with a bicarb of 16. He was initially attempted on BiPAP, but due to his altered mental status, ER physician spoke with me and I recommended to place him on a ventilator. The patient is now intubated. His subsequent ABGs showed a pH of 7.27, pCO2 of 40 and a pO2 of 68 with a bicarb of 21 on 70% FiO2. His chest x-rays have been reviewed, pre and post-intubation and they are consistent with congestive heart failure. He has more interstitial lung infiltrates on the right than on the left. Endotracheal tube is in satisfactory position. He was hypertensive on arrival. Currently, he is on assist control rate of 24, 70% FiO2 and PEEP of 8. 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 No PE by V/Q scan during his previous admission in September. History of coronary artery disease, history of PCI in 06/2017 and then recath at in 12/2017. History of chronic systolic and diastolic congestive heart failure, history of secondary pulmonary hypertension, history of underlying COPD. PAST SURGICAL HISTORY: No recent surgeries except previous cardiac stents. ALLERGIES: LISINOPRIL. MEDICATIONS: Medications that were given in the ER were reviewed. REVIEW OF SYSTEMS: Unable to obtain from the patient. PHYSICAL EXAMINATION: VITAL SIGNS: Reviewed. His blood pressure has been as high as 172 systolic and 119 diastolic, currently 124/92. Pulse ox is 100%. HEENT: Sclerae nonicteric. NECK: Supple. LUNGS: With diminished breath sounds. CARDIOVASCULAR: Regular rate. ABDOMEN: Soft. EXTREMITIES: With trace pitting edema. LABORATORY DATA: Reviewed. ABGs are discussed in my history of present illness. Lactic acid was 7.1, BUN 23, creatinine 2.1. His troponin level 0.29. ProBNP is 5034. Albumin is 3.2. White cell count 13.2, hemoglobin 9.7 and platelets are 377. IMPRESSION: 1. Acute hypoxic and hypercapnic respiratory failure secondary to [id number] systolic and diastolic heart failure. 2. The patient with known cardiomyopathy with an EF of 40%-45% and also grade 4 diastolic dysfunction, now comes in with hypertensive urgency and likely triggering congestive heart failure. 3. 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 4. History of coronary artery disease, status post stents. 5. Underlying chronic obstructive pulmonary disease. 6. Abnormal chest x-ray, likely consistent with congestive heart failure. 7. We need to rule out any substance abuse. RECOMMENDATIONS: 1. Continue with present assist control mode with gradual wean of the FiO2 and PEEP. 2. Follow ABGs and make necessary adjustments. 3. Follow renal function. 4. Lactic acidosis, likely related to impaired perfusion rather than sepsis. We will monitor to see a downward trend. 5. Follow Cardiology's recommendations. 6. Anticipate extubation in the next 24 hours. 7. Monitor blood pressure closely and follow Cardiology's recommendation. 8. DVT and stress ulcer prophylaxis. 9. I do not see a need for another thromboembolic workup as he had similar presentation a few months ago and V/Q scan was negative. 10. Discussed with RN, RT and ER physician and we will follow along with you. Critical care time 40 minutes. RILEY BURR MD DR: JESSIE/kathryn JOB#: [id number] / [id number]
--- NOTE | 2018-12-21 12:04 | RAD ---
Single view portable AP abdomen HISTORY: OG tube placement. FINDINGS: OG tube is identified, with tip overlying the left upper quadrant, and tip overlying the gastric air bubble. There is mild infiltrate or atelectasis in the left lung base. May be a small left pleural effusion. Note that the image is centered at the left upper quadrant. IMPRESSION: OG tube appears to be within the stomach. Electronically signed by: Inocencio Ozuna MD (12/21/2018 12:00 PM) [facility]
[2018-12-21] MEDS: PROPOFOL 100 ML IV PRN ×3 (12:15→22:00)
[2018-12-21 12:36] LABS: BARBITURATES NEG (NEG); CANNABINOIDS NEG (NEG); METHADONE NEG (NEG); OPIATES NEG (NEG); PHENCYCLIDINE NEG (NEG)
[2018-12-21 12:38] LABS: BENZODIAZEPINES NEG (NEG)
--- NOTE | 2018-12-21 12:38 | NUR ---
Patient admitted to room 111 at 1100 via bed from ED. Report received from Marisabel POLANCO. Patient intubated, on Propofol gtt. Orders received from Dr. Dumont to start PPI, maintain Propofol gtt, Lovenox. ABG done. Daily CXR ordered. Patient's , Jesús, at bedside. Not certain about medication compliance. Pharmacy remains the same. Cardiology consulted. Patient's BP improved with Propofol gtt increasing. More sedated/calm as well.
[2018-12-21 12:47] LABS: AMPHETAMINE/METHAMPHETAMINE NEG (NEG)
[2018-12-21 12:50] LABS: COCAINE POS (NEG)
--- NOTE | 2018-12-21 13:00 | NUR ---
RN notified Dr. Dumont of [place] [facility], positive sepsis screen. Order received to stop IVF. Patient hypertensive. Order received to not give IV fluid bolus per sepsis protocol. RN notified Stacy romo/ cardiology of positive tox screen.
[2018-12-21] MEDS: ENOXAPARIN 40 MG/0.4 ML SYRINGE. SQ SCH (13:50)
[2018-12-21] MEDS ORDERED: FAMOTIDINE 20 MG/2 ML VIAL IVP SCH (14:00)
--- NOTE | 2018-12-21 14:21 | PDOC2 ---
SHRAVAN WOOD TRAIN ATTENDANT 12/21/18 1421: CARDIAC CONSULT DATE OF CONSULT Date of Consult DATE: 12/21/18 TIME: 14:19 REASON FOR CONSULT Reason for Consult: CHF REFERRING PHYSICIAN Referring Physician: Dr. Mary SOURCE Source: Caregiver, Chart review HISTORY OF PRESENT ILLNESS HISTORY OF PRESENT ILLNESS This is a 53 yo male who presented secondary to respiratory distress. at bedside. Reports shortness of breath has been ongoing for the last couple weeks. Progressively worsening. Profound today; EMS called. Patient initially placed on BiPAP, but was combative.Oxygen saturations were 39% upon arrival. Was placed back on BiPAP in ED, but due to diminished mental status, patient was intubated. denies any reports of chest pain, palpitations, dizziness, diaphoresis, or nausea/vomiting. Has had some lower extremity edema for the last couple of days. No recent illness/fevers. Has a history of CAD s/p PCI/stent 06/2017 and recath at 12/2017 that showed patent diagonal stent with mild disease to LAD. 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 Patient has failed followup for further workup. PAST MEDICAL HISTORY Past Medical History Cardiovascular: CAD, CHF, HTN, Hyperlipidemia, Other (cardiomyopathy), valvular insufficiency, suspected amyloidosis Pulmonary: Asthma, COPD, severe pulmonary HTN, BEV with CPAP CENTRAL NERVOUS SYSTEM: Other (No pertinent history) GI: PUD, GI bleed Heme/Onc: No pertinent hx Hepatobiliary: No pertinent hx Psych: No pertinent hx Musculoskeletal: Osteoarthritis Rheumatologic: No pertinent hx Infectious disease: No pertinent hx ENT: Allergic Rhinitis Renal/: CKD Endocrine: No pertinent hx Dermatology: No pertinent hx PAST SURGICAL HISTORY Past Surgical History Tonsillectomy, Other (PCI/stent 06/2017 at ) FAMILY HISTORY Family History: Hypertension SOCIAL HISTORY Social History Social History Smoke: <1 pack per day ALCOHOL: none Drugs: Cocaine Lives: with Family CURRENT MEDICATIONS CURRENT MEDICATIONS Current Medications Medications (Trade) Dose Ordered Sig/Deepa Route PRN Reason Start Time Stop Time Status Last Admin Dose Admin Ipratropium Fabius (Atrovent) 0.5 mg 1X ONCE NEB 12/21/18 07:00 12/21/18 07:03 DC 12/21/18 08:48 Methylprednisolone Sodium Succinate (SOLU-Medrol 125MG VIAL) 125 mg 1X ONCE IV 12/21/18 07:00 12/21/18 07:03 DC 12/21/18 08:05 Albuterol Sulfate (Ventolin Neb Soln) 10 mg 1X ONCE CONT NEB 12/21/18 07:00 12/21/18 07:03 DC 12/21/18 08:45 Magnesium Sulfate 50 ml @ 25 mls/hr 1X ONCE IV 12/21/18 07:00 12/21/18 08:59 DC 12/21/18 07:56 Sodium Chloride 1,000 ml @ 1,000 mls/hr 1X ONCE IV 12/21/18 07:30 12/21/18 08:29 DC 12/21/18 07:00 Propofol 100 ml @ 0 mls/hr CONT PRN IV SEE PROTOCOL 12/21/18 07:30 12/21/18 11:56 DC 12/21/18 07:29 Sodium Bicarbonate 150 meq/Sterile Water 1,150 ml @ 125 mls/hr 1X ONCE IV 12/21/18 07:45 12/21/18 16:56 12/21/18 07:57 Etomidate (Amidate) 25 mg 1X ONCE IV 12/21/18 07:21 12/21/18 08:39 DC 12/21/18 07:21 Vecuronium Fabius (Norcuron Bolus) 10 mg 1X ONCE IV 12/21/18 07:22 12/21/18 08:39 DC 12/21/18 07:22 Midazolam HCl (Versed) 5 mg 1X ONCE IV 12/21/18 07:24 12/21/18 08:39 DC 12/21/18 07:24 Vecuronium Fabius (Norcuron Bolus) 10 mg 1X ONCE IV 12/21/18 07:25 12/21/18 08:39 DC 12/21/18 07:25 Furosemide (Lasix) 80 mg 1X ONCE IVP 12/21/18 08:45 12/21/18 08:46 DC 12/21/18 08:44 Midazolam HCl (Versed) 5 mg 1X ONCE IV 12/21/18 08:45 12/21/18 08:46 DC 12/21/18 08:41 Midazolam HCl (Versed) 5 mg 1X ONCE NS 12/21/18 09:45 12/21/18 09:48 DC 12/21/18 09:48 Midazolam HCl (Versed) 5 mg 1X ONCE NS 12/21/18 11:30 12/21/18 11:31 DC 12/21/18 10:45 Famotidine (Pepcid Vial) 20 mg BID IVP 12/21/18 14:00 12/21/18 13:50 Propofol 100 ml @ 0 mls/hr CONT PRN IV SEE I/O RECORD 12/21/18 11:45 12/21/18 12:15 Enoxaparin Sodium (Lovenox 40mg Syringe) 40 mg Q24H SQ 12/21/18 14:00 12/21/18 13:50 ALLERGIES ALLERGIES: Coded Allergies: lisinopril (Verified Allergy, Severe, Swelling, 08/09/18) caused throat swelling ROS Review of System unobtainable PHYSICAL EXAM General: Other (sedated) HEENT: Atraumatic Lungs: Other (bibasilar crackles, mechanical ventil) Heart: Regular rate, Other (2/6 systolic murmur) Abdomen: Soft Extremities: Other (1-2+ bilateral LE edema ) Skin: No significant lesion Neuro: Other (sedated ) Psych/Mental Status: Other (unable to assess) MUSCULOSKELETAL: No deformity VITALS VITALS Vital Signs Date Time Temp Pulse Resp B/P (MAP) Pulse Ox O2 Delivery O2 Flow Rate FiO2 12/21/18 14:00 91 24 137/97 (110) 100 Ventilator 12/21/18 11:15 98.8 98.8 LABS Lab: Laboratory Tests Test 12/21/18 06:55 12/21/18 07:02 12/21/18 07:05 12/21/18 07:48 White Blood Count 13.2 x10^3/uL (4.0-11.0) Red Blood Count 5.16 x10^6/uL (4.30-5.70) Hemoglobin 9.7 g/dL (13.0-17.5) Hematocrit 34.9 % (39.0-53.0) Mean Corpuscular Volume 68 fL (79-100) Mean Corpuscular Hemoglobin 19 pg (25-35) Mean Corpuscular Hemoglobin Concent 28 g/dL (31-37) Red Cell Distribution Width 23.6 % (11.5-14.5) Platelet Count 377 x10^3/uL (140-400) Neutrophils (%) (Auto) 57 % (31-73) Lymphocytes (%) (Auto) 34 % (24-48) Monocytes (%) (Auto) 7 % (0-9) Eosinophils (%) (Auto) 1 % (0-3) Basophils (%) (Auto) 1 % (0-3) Neutrophils # (Auto) 7.5 x10^3uL (1.8-7.7) Lymphocytes # (Auto) 4.5 x10^3/uL (1.0-4.8) Monocytes # (Auto) 0.9 x10^3/uL (0.0-1.1) Eosinophils # (Auto) 0.1 x10^3/uL (0.0-0.7) Basophils # (Auto) 0.1 x10^3/uL (0.0-0.2) Platelet Estimate Adequate (ADEQUATE) Polychromasia Occasional Anisocytosis Mod Microcytosis Present Ovalocytes Occ Sodium Level 144 mmol/L (136-145) Potassium Level 3.8 mmol/L (3.5-5.1) Chloride Level 108 mmol/L (98-107) Carbon Dioxide Level 20 mmol/L (21-32) Anion Gap 16 (6-14) Blood Urea Nitrogen 23 mg/dL (8-26) Creatinine 2.1 mg/dL (0.7-1.3) Estimated GFR (Cockcroft-Gault) 40.5 BUN/Creatinine Ratio 11 (6-20) Glucose Level 185 mg/dL (70-99) Lactic Acid Level 7.1 mmol/L (0.4-2.0) Calcium Level 9.7 mg/dL (8.5-10.1) Total Bilirubin 0.5 mg/dL (0.2-1.0) Aspartate Amino Transf (AST/SGOT) 45 U/L (15-37) Alanine Aminotransferase (ALT/SGPT) 32 U/L (16-63) Alkaline Phosphatase 99 U/L (46-116) Troponin I Quantitative 0.299 ng/mL (0.000-0.055) FY-Jtk-P-Type Natriuretic Peptide 5034 pg/mL (0-124) Total Protein 7.5 g/dL (6.4-8.2) Albumin 3.2 g/dL (3.4-5.0) Albumin/Globulin Ratio 0.7 (1.0-1.7) Glucose (Fingerstick) 147 mg/dL (70-99) O2 Saturation 97 % (92-99) Arterial Blood pH 6.90 (7.35-7.45) Arterial Blood pCO2 at Patient Temp 81 mmHg (35-46) Arterial Blood pO2 at Patient Temp 153 mmHg (75-108) Arterial Blood HCO3 16 mmol/L (21-28) Arterial Blood Base Excess -18 mmol/L (-3-3) FiO2 100 Urine Opiates Screen Neg (NEG) Urine Methadone Screen Neg (NEG) Urine Barbiturates Neg (NEG) Urine Phencyclidine Screen Neg (NEG) Urine Amphetamine/Methamphetamine Neg (NEG) Urine Benzodiazepines Screen Neg (NEG) Urine Cocaine Screen Pos (NEG) Urine Cannabinoids Screen Neg (NEG) Urine Ethyl Alcohol Neg (NEG) Test 12/21/18 09:00 12/21/18 10:46 12/21/18 11:40 12/21/18 12:10 O2 Saturation 88 % (92-99) 99 % (92-99) Arterial Blood pH 7.27 (7.35-7.45) 7.38 (7.35-7.45) Arterial Blood pCO2 at Patient Temp 48 mmHg (35-46) 36 mmHg (35-46) Arterial Blood pO2 at Patient Temp 68 mmHg (75-108) 185 mmHg (75-108) Arterial Blood HCO3 21 mmol/L (21-28) 21 mmol/L (21-28) Arterial Blood Base Excess -6 mmol/L (-3-3) -4 mmol/L (-3-3) FiO2 70 70 Influenza Type A Antigen Negative (NEGATIVE) Influenza Type B Antigen Negative (NEGATIVE) Lactic Acid Level 1.2 mmol/L (0.4-2.0) ECHOCARDIOGRAM ECHOCARDIOGRAM <Conclusion> Left ventricle systolic function is mildly impaired. The Ejection Fraction is 40-45%. There is severe concentric left ventricular hypertrophy. Transmitral Doppler flow pattern is Grade IV-fixed restrictive diastolic dysfunction. The left atrium is moderately dilated. Mild aortic regurgitation. Moderate mitral regurgitation. Mild tricuspid regurgitation. There is moderate-severe pulmonary hypertension. The PA pressure was estimated at 64 mmHg. There is no evidence of significant pericardial effusion. DATE: 07/12/18 1111 ASSESSMENT/PLAN ASSESSMENT/PLAN 1. Acute on chronic respiratory failure secondary to a/c HF; s/p intubation 2. 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 3. NSTEMI: h/o chronic troponin elevation; Initial troponin 0.299. Most probably type 2 demand mediated with multiple culprits as noted above 4. Leukocytosis, lactic acidosis 5. CAD: PCI/stent 06/2017 and cath at 12/2017 with patent diagonal stent with mild disease to LAD. 6. COPD with severe pulmonary HTN with continued tobaccoism 7. HTN; controlled 8. Hyperlipidemia; statin 9. Valvular insufficiency 10. 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 Failed follow up and further w/u due to financial constraints of loss of ins. 11. CKD; CR stable per review 12. Hx of recent PUD/GI bleed 13. Substance abuse; UDS + cocaine Recommendations Trend troponin Diuresis with monitoring of renal function Resume secondary prevention measures as able Lung optimization as per pulmonary Supportive care JELENA GRACIA MD 12/21/18 1540: CARDIAC CONSULT ASSESSMENT/PLAN ASSESSMENT/PLAN Patient seen and examined. Agree with REVIVAL CLERK's assessment and plan. Acute respiratory failure secondary to acute on chronic combined systolic and diastolic heart failure Non-STEMI most probably demand ischemia Last 2-D echo showed LVEF 40-45%, severe diastolic dysfunction probably from amyloidosis for which he was being worked up at Continue diuresis CAD status clinically stable Continue vent management per pulmonary team Thank you for your consultation SHRAVAN WOOD APRN Dec 21, 2018 14:21 JELENA GRACIA MD Dec 21, 2018 15:40
--- NOTE | 2018-12-21 15:59 | CARD ---
MR#: [id number] Date of Study: 12/21/2018 Ordering Physician: PHILIP ROMERO, Referring Physician: CRISTINA MITCHELL Tech: Ling Galo RDCS APPROVED REPORT EXAM: Two-dimensional and M-mode echocardiogram with Doppler and color Doppler. Other Information Quality : GoodHR: 85bpm Rhythm : NSR INDICATION Congestive Heart Failure 2D DIMENSIONS RVDd3.9 (2.9-3.5cm)Left Atrium(2D)5.3 (1.6-4.0cm) IVSd1.8 (0.7-1.1cm)Aortic Root(2D)3.0 (2.0-3.7cm) LVDd6.8 (3.9-5.9cm)LVOT Diameter1.9 (1.8-2.4cm) PWd1.2 (0.7-1.1cm)LVDs5.4 (2.5-4.0cm) FS (%) 20.4 %SV96.2 ml M-Mode DIMENSIONS Left Atrium(MM)5.23 (2.5-4.0cm)Aortic Root3.87 (2.2-3.7cm) Aortic Valve AoV Peak Esau.152.8cm/sAoV VTI28.6cm AO Peak GR.9.3mmHgLVOT Peak Esau.95.9cm/s AO Mean GR.5mmHgAVA (VMAX)1.85cm2 MAURA (VTI)1.58uo2HL P 1/2 [id number] Mitral Valve MV E Enmthgeh78.7cm/sMV DECEL [id number] MV A Bndgrbif58.6cm/sE/A Ratio1.5 MV A [id number] Pulmonary Valve PV Peak Barlynyr434.9cm/s Tricuspid Valve TR P. Bpqpjqrl689kb/sRAP [id number] TR Peak Gr.[id number] LEFT VENTRICLE The Left Ventricle is borderline dilated. There is moderate concentric left ventricular hypertrophy. The systolic function is moderately impaired. The Ejection Fraction is 35%. There is global hypokines is of the left ventricle. Transmitral Doppler flow pattern is Grade III-reversible restrictive diasto lic dysfunction. RIGHT VENTRICLE The right ventricle is mildly dilated. There is normal right ventricular wall thickness. The right ve ntricular systolic function is normal. ATRIA The left atrium is mildly dilated. The right atrium is mildly dilated. AORTIC VALVE The aortic valve is normal in structure and function. The aortic valve is trileaflet. Doppler and Col or Flow revealed mild aortic regurgitation. There is no significant aortic valvular stenosis. MITRAL VALVE The mitral valve is mildly thickened but opens well. There is no evidence of mitral valve prolapse. T here is no mitral valve stenosis. Doppler and Color-flow revealed moderate mitral regurgitation. TRICUSPID VALVE The tricuspid valve is normal in structure and function. Doppler and Color Flow revealed mild tricusp id regurgitation. There is moderate pulmonary hypertension. The PA pressure is > 50 mmHg. There is no tricuspid valve prolapse or vegetation. There is no tricuspid valve stenosis. PULMONIC VALVE The pulmonary valve is normal in structure and function. Doppler and Color Flow revealed mild pulmoni c valvular regurgitation. There is no pulmonic valvular stenosis. GREAT VESSELS The aortic root is normal in size. The ascending aorta is mildly dilated. The IVC is dilated and liz apses <50% with inspiration. PERICARDIAL EFFUSION There is no evidence of significant pericardial effusion. Critical Notification Critical Value: No <Conclusion> The Left Ventricle is borderline dilated. The systolic function is moderately impaired. The Ejection Fraction is 35%. There is global hypokinesis of the left ventricle. There is moderate concentric left ventricular hypertrophy. There is no significant aortic valvular stenosis. Doppler and Color Flow revealed mild aortic regurgitation. Doppler and Color-flow revealed moderate mitral regurgitation. Doppler and Color Flow revealed mild tricuspid regurgitation. There is moderate pulmonary hypertension. The PA pressure is > 50 mmHg. Signed by : Philip Romero MD Electronically Approved : 12/21/2018 15:57:32
[2018-12-21] MEDS: FUROSEMIDE 40 MG/4 ML VIAL. IVP SCH (17:25)
[2018-12-21] MEDS: CARVEDILOL 12.5 MG TABLET. PO SCH (17:25)
--- NOTE | 2018-12-21 17:51 | PDOC1 ---
History and Physical Date of Admission Date of Admission 12/21/2018 Identification/Chief Complaint Chief Complaint Respiratory failure Source Source: Chart review, Unable to obtain due to (Other) History of Present Illness History of Present Illness Patient's history is from reviewing the chart and discussion with ER physician given that the patient is currently intubated. Patient is a 53-year-old male who presents via EMS with respiratory distress. EMS reports that call had gone out for chest pain but by the time they had arrived, patient was clearly in respiratory distress. They indicate that they had tried to place patient on BiPAP but he was combative and pulled the BiPAP off. Upon patient's arrival, nursing staff indicates the patient's initial saturation was 39%. Shortly after arrival, patient's respirations became diminished and patient was initiated on BiPAP right away. Patient's middle status had improved and was assisting with BiPAP respirations. Additional history is limited due to patient's initial mental state on arriving to the emergency room. 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 He has history of diastolic dysfunction stage IV and last recorded ejection fraction according to review of chart is 40-45%. The patient had also history of coronary disease status post PCI and also has underlying pulmonary hypertension and COPD. The patient unfortunately is positive for cocaine which may have aggravated his respiratory distress. Most likely his underlying etiology is cardiac in nature and the multitude of insults including bad diet may have prompted his current presentation. At the time my evaluation the patient is in the ICU sedated on a ventilator. All his parameters have greatly improved and Has Consulted with the Patient. Recommendations Are Greatly Appreciated and Will Follow Patient along with Him Past Medical History Cardiovascular: CAD, CHF, HTN, Hyperlipidemia, Other Pulmonary: Asthma, COPD CENTRAL NERVOUS SYSTEM: Other GI: No pertinent hx Heme/Onc: No pertinent hx Hepatobiliary: No pertinent hx Psych: No pertinent hx Rheumatologic: No pertinent hx Infectious disease: No pertinent hx Renal/: Chronic renal insuff Endocrine: No pertinent hx Past Surgical History Past Surgical History: Tonsillectomy, Other Family History Family History: Hypertension Social History ALCOHOL: none Drugs: None Current Problem List Problem List Problems Medical Problems: (1) Acute hypercapnic respiratory failure Status: Acute (2) CHF (congestive heart failure) Status: Acute (3) Respiratory acidosis Status: Acute Current Medications Current Medications Current Medications Medications (Trade) Dose Ordered Sig/Deepa Start Time Stop Time Status Last Admin Dose Admin Albuterol Sulfate (Ventolin Neb Soln) 2.5 mg RTQID 12/21/18 20:00 Amlodipine Besylate (Norvasc) 10 mg BID 12/21/18 21:00 Aspirin (Children'S Aspirin) 81 mg DAILY 12/22/18 09:00 Atorvastatin Calcium (Lipitor) 20 mg QHS 12/21/18 21:00 Budesonide (Pulmicort) 0.5 mg RTBID 12/21/18 20:00 Carvedilol (Coreg) 25 mg BIDWMEALS 12/21/18 17:00 12/21/18 17:25 12.5 MG Clopidogrel Bisulfate (Plavix) 75 mg DAILYWBKFT 12/22/18 08:00 Enoxaparin Sodium (Lovenox 40mg Syringe) 40 mg Q24H 12/21/18 14:00 12/21/18 13:50 40 MG Enoxaparin Sodium (Lovenox Per Pharmacy Prophylaxis Dosing) 1 each PRN DAILY PRN 12/21/18 11:45 12/21/18 14:27 DC Etomidate (Amidate) 25 mg 1X ONCE 12/21/18 07:21 12/21/18 08:39 DC 12/21/18 07:21 25 MG Famotidine (Pepcid Vial) 20 mg DAILY 12/22/18 09:00 Fluticasone Propionate (Flonase) 2 spray DAILY 12/22/18 09:00 Furosemide (Lasix) 40 mg DAILY 12/21/18 17:00 12/21/18 17:25 40 MG Hydralazine HCl (Apresoline) 100 mg TID 12/21/18 21:00 Ipratropium [place] (Atrovent) 0.5 mg 1X ONCE 12/21/18 07:00 12/21/18 07:03 DC 12/21/18 08:48 0.5 MG Isosorbide Mononitrate (Imdur) 60 mg DAILY 12/22/18 09:00 Magnesium Sulfate 50 ml @ 25 mls/hr 1X ONCE 12/21/18 07:00 12/21/18 08:59 DC 12/21/18 07:56 25 MLS/HR Methylprednisolone Sodium Succinate (SOLU-Medrol 125MG VIAL) 125 mg 1X ONCE 12/21/18 07:00 12/21/18 07:03 DC 12/21/18 08:05 125 MG Metoprolol Tartrate (Lopressor Vial) 5 mg 1X ONCE 12/21/18 08:45 12/21/18 08:46 DC Midazolam HCl (Versed) 5 mg 1X ONCE 12/21/18 11:30 12/21/18 11:31 DC 12/21/18 10:45 5 MG Non-Formulary Medication (Albuterol Sulfate (Ventolin Hfa Inhaler)) 2 puff Q4HRS 12/21/18 20:00 UNV Non-Formulary Medication (Fluticasone/ Vilanterol (Breo Ellipta 200-25 Mcg INH)) 1 puff DAILY 12/22/18 09:00 UNV Non-Formulary Medication ([Pantoprazole] ) 40 mg BIDAC 12/22/18 07:30 UNV Propofol 100 ml @ 0 mls/hr CONT PRN 12/21/18 11:45 12/21/18 17:24 22.36 MLS/HR Sodium Bicarbonate 150 meq/Sterile Water 1,150 ml @ 125 mls/hr 1X ONCE 12/21/18 07:45 12/21/18 16:56 DC 12/21/18 07:57 125 MLS/HR Sodium Chloride 1,000 ml @ 1,000 mls/hr 1X ONCE 12/21/18 07:30 12/21/18 08:29 DC 12/21/18 07:00 1,000 MLS/HR Vecuronium [place] (Norcuron Bolus) 10 mg 1X ONCE 12/21/18 07:25 12/21/18 08:39 DC 12/21/18 07:25 10 MG Allergies Allergies Allergies Coded Allergies Type Severity Reaction Last Updated Verified lisinopril Allergy Severe Swelling 08/09/18 Yes ROS Review of System Unable to assess due to acute illness and intubation Physical Exam Physical Exam GEN.: No apparent distress. Sedated on a ventilator HEENT: Head is normocephalic, atraumatic NECK: Supple. LUNGS: Clear to auscultation. On bilateral upper lobes there is some crackles at the lung bases especially over the right HEART: RRR, S1, S2 present. Systolic murmur is heard over the left parasternal border second intercostal space Peripheral pulses intact ABDOMEN: Soft, nontender. Positive bowel sounds. EXTREMITIES: Without any cyanosis. NEUROLOGIC: Normal speech, normal tone PSYCHIATRIC: Normal affect, normal mood. SKIN: No ulcerations Vitals Vitals Vital Signs Date Time Temp Pulse Resp B/P (MAP) Pulse Ox O2 Delivery O2 Flow Rate FiO2 12/21/18 17:25 92 161/101 12/21/18 16:53 100 Ventilator 12/21/18 16:00 98.5 24 98.5 Labs Labs Laboratory Tests Test 12/21/18 06:55 12/21/18 07:02 12/21/18 07:05 12/21/18 07:48 White Blood Count 13.2 x10^3/uL (4.0-11.0) Red Blood Count 5.16 x10^6/uL (4.30-5.70) Hemoglobin 9.7 g/dL (13.0-17.5) Hematocrit 34.9 % (39.0-53.0) Mean Corpuscular Volume 68 fL (79-100) Mean Corpuscular Hemoglobin 19 pg (25-35) Mean Corpuscular Hemoglobin Concent 28 g/dL (31-37) Red Cell Distribution Width 23.6 % (11.5-14.5) Platelet Count 377 x10^3/uL (140-400) Neutrophils (%) (Auto) 57 % (31-73) Lymphocytes (%) (Auto) 34 % (24-48) Monocytes (%) (Auto) 7 % (0-9) Eosinophils (%) (Auto) 1 % (0-3) Basophils (%) (Auto) 1 % (0-3) Neutrophils # (Auto) 7.5 x10^3uL (1.8-7.7) Lymphocytes # (Auto) 4.5 x10^3/uL (1.0-4.8) Monocytes # (Auto) 0.9 x10^3/uL (0.0-1.1) Eosinophils # (Auto) 0.1 x10^3/uL (0.0-0.7) Basophils # (Auto) 0.1 x10^3/uL (0.0-0.2) Platelet Estimate Adequate (ADEQUATE) Polychromasia Occasional Anisocytosis Mod Microcytosis Present Ovalocytes Occ Sodium Level 144 mmol/L (136-145) Potassium Level 3.8 mmol/L (3.5-5.1) Chloride Level 108 mmol/L (98-107) Carbon Dioxide Level 20 mmol/L (21-32) Anion Gap 16 (6-14) Blood Urea Nitrogen 23 mg/dL (8-26) Creatinine 2.1 mg/dL (0.7-1.3) Estimated GFR (Cockcroft-Gault) 40.5 BUN/Creatinine Ratio 11 (6-20) Glucose Level 185 mg/dL (70-99) Lactic Acid Level 7.1 mmol/L (0.4-2.0) Calcium Level 9.7 mg/dL (8.5-10.1) Total Bilirubin 0.5 mg/dL (0.2-1.0) Aspartate Amino Transf (AST/SGOT) 45 U/L (15-37) Alanine Aminotransferase (ALT/SGPT) 32 U/L (16-63) Alkaline Phosphatase 99 U/L (46-116) Troponin I Quantitative 0.299 ng/mL (0.000-0.055) FQ-Opq-Y-Type Natriuretic Peptide 5034 pg/mL (0-124) Total Protein 7.5 g/dL (6.4-8.2) Albumin 3.2 g/dL (3.4-5.0) Albumin/Globulin Ratio 0.7 (1.0-1.7) Glucose (Fingerstick) 147 mg/dL (70-99) O2 Saturation 97 % (92-99) Arterial Blood pH 6.90 (7.35-7.45) Arterial Blood pCO2 at Patient Temp 81 mmHg (35-46) Arterial Blood pO2 at Patient Temp 153 mmHg (75-108) Arterial Blood HCO3 16 mmol/L (21-28) Arterial Blood Base Excess -18 mmol/L (-3-3) FiO2 100 Urine Opiates Screen Neg (NEG) Urine Methadone Screen Neg (NEG) Urine Barbiturates Neg (NEG) Urine Phencyclidine Screen Neg (NEG) Urine Amphetamine/Methamphetamine Neg (NEG) Urine Benzodiazepines Screen Neg (NEG) Urine Cocaine Screen Pos (NEG) Urine Cannabinoids Screen Neg (NEG) Urine Ethyl Alcohol Neg (NEG) Test 12/21/18 09:00 12/21/18 10:46 12/21/18 11:40 12/21/18 12:10 O2 Saturation 88 % (92-99) 99 % (92-99) Arterial Blood pH 7.27 (7.35-7.45) 7.38 (7.35-7.45) Arterial Blood pCO2 at Patient Temp 48 mmHg (35-46) 36 mmHg (35-46) Arterial Blood pO2 at Patient Temp 68 mmHg (75-108) 185 mmHg (75-108) Arterial Blood HCO3 21 mmol/L (21-28) 21 mmol/L (21-28) Arterial Blood Base Excess -6 mmol/L (-3-3) -4 mmol/L (-3-3) FiO2 70 70 Influenza Type A Antigen Negative (NEGATIVE) Influenza Type B Antigen Negative (NEGATIVE) Lactic Acid Level 1.2 mmol/L (0.4-2.0) Laboratory Tests Test 12/21/18 06:55 12/21/18 07:02 12/21/18 07:05 12/21/18 07:48 White Blood Count 13.2 x10^3/uL (4.0-11.0) Red Blood Count 5.16 x10^6/uL (4.30-5.70) Hemoglobin 9.7 g/dL (13.0-17.5) Hematocrit 34.9 % (39.0-53.0) Mean Corpuscular Volume 68 fL (79-100) Mean Corpuscular Hemoglobin 19 pg (25-35) Mean Corpuscular Hemoglobin Concent 28 g/dL (31-37) Red Cell Distribution Width 23.6 % (11.5-14.5) Platelet Count 377 x10^3/uL (140-400) Neutrophils (%) (Auto) 57 % (31-73) Lymphocytes (%) (Auto) 34 % (24-48) Monocytes (%) (Auto) 7 % (0-9) Eosinophils (%) (Auto) 1 % (0-3) Basophils (%) (Auto) 1 % (0-3) Neutrophils # (Auto) 7.5 x10^3uL (1.8-7.7) Lymphocytes # (Auto) 4.5 x10^3/uL (1.0-4.8) Monocytes # (Auto) 0.9 x10^3/uL (0.0-1.1) Eosinophils # (Auto) 0.1 x10^3/uL (0.0-0.7) Basophils # (Auto) 0.1 x10^3/uL (0.0-0.2) Platelet Estimate Adequate (ADEQUATE) Polychromasia Occasional Anisocytosis Mod Microcytosis Present Ovalocytes Occ Sodium Level 144 mmol/L (136-145) Potassium Level 3.8 mmol/L (3.5-5.1) Chloride Level 108 mmol/L (98-107) Carbon Dioxide Level 20 mmol/L (21-32) Anion Gap 16 (6-14) Blood Urea Nitrogen 23 mg/dL (8-26) Creatinine 2.1 mg/dL (0.7-1.3) Estimated GFR (Cockcroft-Gault) 40.5 BUN/Creatinine Ratio 11 (6-20) Glucose Level 185 mg/dL (70-99) Lactic Acid Level 7.1 mmol/L (0.4-2.0) Calcium Level 9.7 mg/dL (8.5-10.1) Total Bilirubin 0.5 mg/dL (0.2-1.0) Aspartate Amino Transf (AST/SGOT) 45 U/L (15-37) Alanine Aminotransferase (ALT/SGPT) 32 U/L (16-63) Alkaline Phosphatase 99 U/L (46-116) Troponin I Quantitative 0.299 ng/mL (0.000-0.055) YW-Xqr-O-Type Natriuretic Peptide 5034 pg/mL (0-124) Total Protein 7.5 g/dL (6.4-8.2) Albumin 3.2 g/dL (3.4-5.0) Albumin/Globulin Ratio 0.7 (1.0-1.7) Glucose (Fingerstick) 147 mg/dL (70-99) O2 Saturation 97 % (92-99) Arterial Blood pH 6.90 (7.35-7.45) Arterial Blood pCO2 at Patient Temp 81 mmHg (35-46) Arterial Blood pO2 at Patient Temp 153 mmHg (75-108) Arterial Blood HCO3 16 mmol/L (21-28) Arterial Blood Base Excess -18 mmol/L (-3-3) FiO2 100 Urine Opiates Screen Neg (NEG) Urine Methadone Screen Neg (NEG) Urine Barbiturates Neg (NEG) Urine Phencyclidine Screen Neg (NEG) Urine Amphetamine/Methamphetamine Neg (NEG) Urine Benzodiazepines Screen Neg (NEG) Urine Cocaine Screen Pos (NEG) Urine Cannabinoids Screen Neg (NEG) Urine Ethyl Alcohol Neg (NEG) Test 12/21/18 09:00 12/21/18 10:46 12/21/18 11:40 12/21/18 12:10 O2 Saturation 88 % (92-99) 99 % (92-99) Arterial Blood pH 7.27 (7.35-7.45) 7.38 (7.35-7.45) Arterial Blood pCO2 at Patient Temp 48 mmHg (35-46) 36 mmHg (35-46) Arterial Blood pO2 at Patient Temp 68 mmHg (75-108) 185 mmHg (75-108) Arterial Blood HCO3 21 mmol/L (21-28) 21 mmol/L (21-28) Arterial Blood Base Excess -6 mmol/L (-3-3) -4 mmol/L (-3-3) FiO2 70 70 Influenza Type A Antigen Negative (NEGATIVE) Influenza Type B Antigen Negative (NEGATIVE) Lactic Acid Level 1.2 mmol/L (0.4-2.0) VTE Prophylaxis Ordered VTE Prophylaxis Devices: Yes VTE Pharmacological Prophylaxi: No Assessment/Plan Assessment/Plan Pulmonary edema secondary to most likely dietary transgression and illegal drug abuse 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 DVT prophylaxis with Lovenox CRISTINA MITCHELL MD Dec 21, 2018 17:51
[2018-12-21] MEDS: BUDESONIDE 0.5 MG/2 ML NEBU. NEB SCH (19:42)
[2018-12-21] MEDS: ALBUTEROL SULFATE 2.5 MG/3 ML NEBU. NEB SCH (19:42)
[2018-12-21] MEDS ORDERED: NON FORMULARY ITEM (Albuterol Sulfate (Ventolin Hfa Inhaler) 2 PUFF) INH SCH (20:00)
[2018-12-21] MEDS: amLODIPine BESYLATE 10 MG TABLET PO SCH (20:28)
[2018-12-21] MEDS: ATORVASTATIN CALCIUM 20 MG TABLET PO SCH (20:29)
[2018-12-22] VITALS (25 sets, daily range): BP systolic 108–155; BP diastolic 56–95
[2018-12-22] MEDS: PROPOFOL 100 ML IV PRN ×2 (01:28→05:50)
--- NOTE | 2018-12-22 02:08 | EKG ---
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
[2018-12-22 06:03] LABS: BASO % 0 % (0-3); EOS % 0 % (0-3); HEMOGLOBIN 8.3 g/dL (13.0-17.5); LYMPH # 2.1 x10^3/uL (1.0-4.8); LYMPH % 25 % (24-48); MEAN CORPUSCULAR HEMOGLOBIN 19 pg (25-35); MEAN CORPUSCULAR HGB CONC 31 g/dL (31-37); MEAN CORPUSCULAR VOLUME 63 fL (79-100); MONO # 0.7 x10^3/uL (0.0-1.1); MONO % 9 % (0-9); NEUT # 5.6 x10^3uL (1.8-7.7); NEUT % 67 % (31-73); PLATELET COUNT 263 x10^3/uL (140-400); RED BLOOD COUNT 4.28 x10^6/uL (4.30-5.70); RED CELL DISTRIBUTION WIDTH 23.4 % (11.5-14.5); WHITE BLOOD COUNT 8.4 x10^3/uL (4.0-11.0)
[2018-12-22 06:15] LABS: CALCIUM 8.9 mg/dL (8.5-10.1); CREATININE 2.6 mg/dL (0.7-1.3); GFR 31.6
[2018-12-22] MEDS ORDERED: NON FORMULARY ITEM ([Pantoprazole] 40 MG) PO SCH (07:30)
[2018-12-22] MEDS: ALBUTEROL SULFATE 2.5 MG/3 ML NEBU. NEB SCH ×4 (08:14→19:36)
[2018-12-22] MEDS: BUDESONIDE 0.5 MG/2 ML NEBU. NEB SCH ×2 (08:14→19:36)
[2018-12-22 08:32] LABS: BASE EXCESS ABG -1 mmol/L (-3-3); FIO2 ABG 50; HCO3 ABG 23 mmol/L (21-28); PCO2 ABG 34 mmHg (35-46); PO2 ABG 217 mmHg (75-108); SAT O2 ABG 99 % (92-99)
[2018-12-22] MEDS ORDERED: FAMOTIDINE 20 MG/2 ML VIAL IVP SCH (09:00)
[2018-12-22] MEDS ORDERED: NON FORMULARY ITEM (Fluticasone/Vilanterol (Breo Ellipta 200-25 Mcg INH) 1 PUFF) IH SCH (09:00)
[2018-12-22] MEDS: FLUTICASONE 50MCG/NASAL SPRAY 16GM BOTTLE. NS SCH (09:00)
[2018-12-22] MEDS ORDERED: FUROSEMIDE 40 MG TABLET. PO SCH (09:00)
[2018-12-22] MEDS: amLODIPine BESYLATE 10 MG TABLET PO SCH ×2 (09:00→20:14)
[2018-12-22] MEDS: CLOPIDOGREL BISULFATE 75 MG TABLET PO SCH (09:13)
[2018-12-22] MEDS: CARVEDILOL 12.5 MG TABLET. PO SCH ×2 (09:14→18:27)
[2018-12-22] MEDS: ASPIRIN CHEWABLE 81 MG TABLET. PO SCH (09:14)
[2018-12-22] MEDS: FUROSEMIDE 40 MG/4 ML VIAL. IVP SCH (09:15)
--- NOTE | 2018-12-22 09:56 | RAD ---
CHEST AP ONLY History: Intubated. COMPARISON: Previous day. FINDINGS: Endotracheal tube tip 7 cm above the yue. Endogastric tube extends to the left upper quadrant, tip not visualized. Heart size remains mildly enlarged. Improved aeration of the right lung. Mild retrocardiac markings are stable. Hazy opacity in the right lung identified. IMPRESSION: 1. There is some residual hazy opacity in the right lung although overall has improved. 2. Mild left retrocardiac density is stable. Electronically signed by: Inocencio Ozuna MD (12/22/2018 9:52 AM) [facility]
--- NOTE | 2018-12-22 10:39 | PDOC ---
PULMONARY PROGRESS NOTES Subjective awake, on CPAP trial Vitals Vital Signs Date Time Temp Pulse Resp B/P (MAP) Pulse Ox O2 Delivery O2 Flow Rate FiO2 12/22/18 09:14 83 108/82 12/22/18 08:00 100 Ventilator 12/22/18 06:00 24 12/22/18 04:00 98.2 98.2 General: Alert, No acute distress Lungs: Clear Cardiovascular: S1 Abdomen: Soft Neuro Exam: Alert Extremities: No Edema Skin: Warm Labs Laboratory Tests Test 12/21/18 06:55 12/21/18 07:02 12/21/18 07:05 12/21/18 07:48 White Blood Count 13.2 x10^3/uL (4.0-11.0) Red Blood Count 5.16 x10^6/uL (4.30-5.70) Hemoglobin 9.7 g/dL (13.0-17.5) Hematocrit 34.9 % (39.0-53.0) Mean Corpuscular Volume 68 fL (79-100) Mean Corpuscular Hemoglobin 19 pg (25-35) Mean Corpuscular Hemoglobin Concent 28 g/dL (31-37) Red Cell Distribution Width 23.6 % (11.5-14.5) Platelet Count 377 x10^3/uL (140-400) Neutrophils (%) (Auto) 57 % (31-73) Lymphocytes (%) (Auto) 34 % (24-48) Monocytes (%) (Auto) 7 % (0-9) Eosinophils (%) (Auto) 1 % (0-3) Basophils (%) (Auto) 1 % (0-3) Neutrophils # (Auto) 7.5 x10^3uL (1.8-7.7) Lymphocytes # (Auto) 4.5 x10^3/uL (1.0-4.8) Monocytes # (Auto) 0.9 x10^3/uL (0.0-1.1) Eosinophils # (Auto) 0.1 x10^3/uL (0.0-0.7) Basophils # (Auto) 0.1 x10^3/uL (0.0-0.2) Platelet Estimate Adequate (ADEQUATE) Polychromasia Occasional Anisocytosis Mod Microcytosis Present Ovalocytes Occ Sodium Level 144 mmol/L (136-145) Potassium Level 3.8 mmol/L (3.5-5.1) Chloride Level 108 mmol/L (98-107) Carbon Dioxide Level 20 mmol/L (21-32) Anion Gap 16 (6-14) Blood Urea Nitrogen 23 mg/dL (8-26) Creatinine 2.1 mg/dL (0.7-1.3) Estimated GFR (Cockcroft-Gault) 40.5 BUN/Creatinine Ratio 11 (6-20) Glucose Level 185 mg/dL (70-99) Lactic Acid Level 7.1 mmol/L (0.4-2.0) Calcium Level 9.7 mg/dL (8.5-10.1) Total Bilirubin 0.5 mg/dL (0.2-1.0) Aspartate Amino Transf (AST/SGOT) 45 U/L (15-37) Alanine Aminotransferase (ALT/SGPT) 32 U/L (16-63) Alkaline Phosphatase 99 U/L (46-116) Troponin I Quantitative 0.299 ng/mL (0.000-0.055) KT-Jkn-M-Type Natriuretic Peptide 5034 pg/mL (0-124) Total Protein 7.5 g/dL (6.4-8.2) Albumin 3.2 g/dL (3.4-5.0) Albumin/Globulin Ratio 0.7 (1.0-1.7) Glucose (Fingerstick) 147 mg/dL (70-99) O2 Saturation 97 % (92-99) Arterial Blood pH 6.90 (7.35-7.45) Arterial Blood pCO2 at Patient Temp 81 mmHg (35-46) Arterial Blood pO2 at Patient Temp 153 mmHg (75-108) Arterial Blood HCO3 16 mmol/L (21-28) Arterial Blood Base Excess -18 mmol/L (-3-3) FiO2 100 Urine Opiates Screen Neg (NEG) Urine Methadone Screen Neg (NEG) Urine Barbiturates Neg (NEG) Urine Phencyclidine Screen Neg (NEG) Urine Amphetamine/Methamphetamine Neg (NEG) Urine Benzodiazepines Screen Neg (NEG) Urine Cocaine Screen Pos (NEG) Urine Cannabinoids Screen Neg (NEG) Urine Ethyl Alcohol Neg (NEG) Test 12/21/18 09:00 12/21/18 10:46 12/21/18 11:40 12/21/18 12:10 O2 Saturation 88 % (92-99) 99 % (92-99) Arterial Blood pH 7.27 (7.35-7.45) 7.38 (7.35-7.45) Arterial Blood pCO2 at Patient Temp 48 mmHg (35-46) 36 mmHg (35-46) Arterial Blood pO2 at Patient Temp 68 mmHg (75-108) 185 mmHg (75-108) Arterial Blood HCO3 21 mmol/L (21-28) 21 mmol/L (21-28) Arterial Blood Base Excess -6 mmol/L (-3-3) -4 mmol/L (-3-3) FiO2 70 70 Influenza Type A Antigen Negative (NEGATIVE) Influenza Type B Antigen Negative (NEGATIVE) Lactic Acid Level 1.2 mmol/L (0.4-2.0) Test 12/22/18 05:45 12/22/18 08:00 White Blood Count 8.4 x10^3/uL (4.0-11.0) Red Blood Count 4.28 x10^6/uL (4.30-5.70) Hemoglobin 8.3 g/dL (13.0-17.5) Hematocrit 27.0 % (39.0-53.0) Mean Corpuscular Volume 63 fL (79-100) Mean Corpuscular Hemoglobin 19 pg (25-35) Mean Corpuscular Hemoglobin Concent 31 g/dL (31-37) Red Cell Distribution Width 23.4 % (11.5-14.5) Platelet Count 263 x10^3/uL (140-400) Neutrophils (%) (Auto) 67 % (31-73) Lymphocytes (%) (Auto) 25 % (24-48) Monocytes (%) (Auto) 9 % (0-9) Eosinophils (%) (Auto) 0 % (0-3) Basophils (%) (Auto) 0 % (0-3) Neutrophils # (Auto) 5.6 x10^3uL (1.8-7.7) Lymphocytes # (Auto) 2.1 x10^3/uL (1.0-4.8) Monocytes # (Auto) 0.7 x10^3/uL (0.0-1.1) Eosinophils # (Auto) 0.0 x10^3/uL (0.0-0.7) Basophils # (Auto) 0.0 x10^3/uL (0.0-0.2) Sodium Level 141 mmol/L (136-145) Potassium Level 4.0 mmol/L (3.5-5.1) Chloride Level 107 mmol/L (98-107) Carbon Dioxide Level 24 mmol/L (21-32) Anion Gap 10 (6-14) Blood Urea Nitrogen 36 mg/dL (8-26) Creatinine 2.6 mg/dL (0.7-1.3) Estimated GFR (Cockcroft-Gault) 31.6 Glucose Level 120 mg/dL (70-99) Calcium Level 8.9 mg/dL (8.5-10.1) O2 Saturation 99 % (92-99) Arterial Blood pH 7.45 (7.35-7.45) Arterial Blood pCO2 at Patient Temp 34 mmHg (35-46) Arterial Blood pO2 at Patient Temp 217 mmHg (75-108) Arterial Blood HCO3 23 mmol/L (21-28) Arterial Blood Base Excess -1 mmol/L (-3-3) FiO2 50 Laboratory Tests Test 12/21/18 10:46 12/21/18 11:40 12/21/18 12:10 12/22/18 05:45 Influenza Type A Antigen Negative (NEGATIVE) Influenza Type B Antigen Negative (NEGATIVE) O2 Saturation 99 % (92-99) Arterial Blood pH 7.38 (7.35-7.45) Arterial Blood pCO2 at Patient Temp 36 mmHg (35-46) Arterial Blood pO2 at Patient Temp 185 mmHg (75-108) Arterial Blood HCO3 21 mmol/L (21-28) Arterial Blood Base Excess -4 mmol/L (-3-3) FiO2 70 Lactic Acid Level 1.2 mmol/L (0.4-2.0) White Blood Count 8.4 x10^3/uL (4.0-11.0) Red Blood Count 4.28 x10^6/uL (4.30-5.70) Hemoglobin 8.3 g/dL (13.0-17.5) Hematocrit 27.0 % (39.0-53.0) Mean Corpuscular Volume 63 fL (79-100) Mean Corpuscular Hemoglobin 19 pg (25-35) Mean Corpuscular Hemoglobin Concent 31 g/dL (31-37) Red Cell Distribution Width 23.4 % (11.5-14.5) Platelet Count 263 x10^3/uL (140-400) Neutrophils (%) (Auto) 67 % (31-73) Lymphocytes (%) (Auto) 25 % (24-48) Monocytes (%) (Auto) 9 % (0-9) Eosinophils (%) (Auto) 0 % (0-3) Basophils (%) (Auto) 0 % (0-3) Neutrophils # (Auto) 5.6 x10^3uL (1.8-7.7) Lymphocytes # (Auto) 2.1 x10^3/uL (1.0-4.8) Monocytes # (Auto) 0.7 x10^3/uL (0.0-1.1) Eosinophils # (Auto) 0.0 x10^3/uL (0.0-0.7) Basophils # (Auto) 0.0 x10^3/uL (0.0-0.2) Sodium Level 141 mmol/L (136-145) Potassium Level 4.0 mmol/L (3.5-5.1) Chloride Level 107 mmol/L (98-107) Carbon Dioxide Level 24 mmol/L (21-32) Anion Gap 10 (6-14) Blood Urea Nitrogen 36 mg/dL (8-26) Creatinine 2.6 mg/dL (0.7-1.3) Estimated GFR (Cockcroft-Gault) 31.6 Glucose Level 120 mg/dL (70-99) Calcium Level 8.9 mg/dL (8.5-10.1) Test 12/22/18 08:00 O2 Saturation 99 % (92-99) Arterial Blood pH 7.45 (7.35-7.45) Arterial Blood pCO2 at Patient Temp 34 mmHg (35-46) Arterial Blood pO2 at Patient Temp 217 mmHg (75-108) Arterial Blood HCO3 23 mmol/L (21-28) Arterial Blood Base Excess -1 mmol/L (-3-3) FiO2 50 Medications Active Scripts Medications Dose Route/Sig Max Daily Dose Days Date Category [Pantoprazole] 40 MG Tablet.dr 40 Mg PO BIDAC 09/18/18 Rx Amlodipine Besylate 10 Mg Tablet 10 Mg PO BID 09/15/18 Reported Aspirin 81 Mg Tab.chew 1 Tab PO DAILY 09/15/18 Reported Ventolin Hfa Inhaler (Albuterol Sulfate) 18 Gm Hfa.aer.ad 2 Puff INH Q4HRS 20 08/07/18 Rx Breo Ellipta 200-25 Mcg INH (Fluticasone/Vilanterol) 1 Each Blst.w.dev 1 Puff IH DAILY 07/13/18 Rx Furosemide 40 Mg Tablet 40 Mg PO DAILY 30 07/13/18 Rx Carvedilol 12.5 Mg Tablet 25 Mg PO BIDWMEALS 07/13/18 Rx Isosorbide Mononitrate Er (Isosorbide Mononitrate) 30 Mg Tab.er.24h 60 Mg PO DAILY 07/13/18 Rx Hydralazine Hcl 50 Mg Tablet 100 Mg PO TID 07/13/18 Rx Clopidogrel (Clopidogrel Bisulfate) 75 Mg Tablet 75 Mg PO DAILYWBKFT 07/13/18 Rx Lipitor (Atorvastatin Calcium) 20 Mg Tablet 1 Tab PO DAILY 07/04/15 Rx Fluticasone Propionate Nasal [place] (Fluticasone Propionate) 1 [place] 2 [place] NS DAILY 07/04/15 Rx Comments CXR 12/22 RESOLVING CHF Impression . 1. Acute hypoxic and hypercapnic respiratory failure secondary to [id number] systolic and diastolic heart failure. 2. The patient with known cardiomyopathy with an EF of 40%-45% and also grade 4 diastolic dysfunction, now comes in with hypertensive urgency and likely triggering congestive heart failure. Repeat echo with EF 35%, Moderate MR 3. 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 4. History of coronary artery disease, status post stents. 5. Underlying chronic obstructive pulmonary disease. 6. Abnormal chest x-ray, likely consistent with congestive heart failure. 7. substance abuse. UDS + for Cocaine Plan . 1. On CPAP trial, likely extubation today 2. CXR improving CHF 3. Follow renal function. 4. Lactic acidosis, likely related to increase w/o breathing rather than sepsis. 5. Follow Cardiology's recommendations. 6. Anticipate extubation today 7. Monitor blood pressure closely and follow Cardiology's recommendation. 8. DVT and stress ulcer prophylaxis. 9. Needs to quit cocaine 10. Discussed with RN, RT RILEY BURR MD Dec 22, 2018 10:39
[2018-12-22 10:57] LABS: BASE EXCESS ABG -3 mmol/L (-3-3); HCO3 ABG 22 mmol/L (21-28); PCO2 ABG 38 mmHg (35-46); PO2 ABG 146 mmHg (75-108); SAT O2 ABG 99 % (92-99)
[2018-12-22 10:58] LABS: FIO2 ABG 40
--- NOTE | 2018-12-22 12:56 | PDOC ---
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 Uncontrolled hypertension. Coronary artery disease with previous percutaneous coronary intervention at [facility]. Secondary pulmonary hypertension. Paroxysmal supraventricular tachycardia. Chronic kidney disease stage 3 History of Present Illness History of Present Illness 53 yo male w/ PMHx CHF, PUD w/ H. pylori, pulm HTN who presented secondary to respiratory distress. at bedside. Reports shortness of breath has been ongoing for the last couple weeks. Patient initially placed on BiPAP, but was combative with Oxygen saturations 39 % upon arrival was intubated. Has a history of CAD s/p PCI/stent 06/2017 and recath at 12/2017 that showed patent diagonal stent with mild disease to LAD. 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 Patient has failed followup for further workup. Managed ok on vent overnight. Seen after extubation and successful CPAP trial. He does not currently have any cardiac complaints outside of shortness of breath and he would like to eat. Sore throat Plan: Diurese BP control Lactate normalized Ok for cardiac diet Monitor Cr Monitor blood pressure closely and follow Cardiology's recommendation. DVT and stress ulcer prophylaxis. Needs to quit cocaine Discussed with RN, RT ICU for today, can step down. Critical care time 34 minutes including overnight vent management Vitals Vitals Vital Signs Date Time Temp Pulse Resp B/P (MAP) Pulse Ox O2 Delivery O2 Flow Rate FiO2 12/22/18 11:15 100 Nasal Cannula 4.0 12/22/18 11:00 90 26 114/85 (95) 12/22/18 08:00 99.5 99.5 Physical Exam General: Alert, Oriented X3, Cooperative, mild distress Heart: Regular rate, Other (2/6 systolic murmur) Lungs: Clear Abdomen: Soft Extremities: Other (1-2+ bilateral LE edema ) Skin: No significant lesion Labs LABS Laboratory Tests Test 12/22/18 05:45 12/22/18 08:00 12/22/18 10:50 White Blood Count 8.4 x10^3/uL (4.0-11.0) Red Blood Count 4.28 x10^6/uL (4.30-5.70) Hemoglobin 8.3 g/dL (13.0-17.5) Hematocrit 27.0 % (39.0-53.0) Mean Corpuscular Volume 63 fL (79-100) Mean Corpuscular Hemoglobin 19 pg (25-35) Mean Corpuscular Hemoglobin Concent 31 g/dL (31-37) Red Cell Distribution Width 23.4 % (11.5-14.5) Platelet Count 263 x10^3/uL (140-400) Neutrophils (%) (Auto) 67 % (31-73) Lymphocytes (%) (Auto) 25 % (24-48) Monocytes (%) (Auto) 9 % (0-9) Eosinophils (%) (Auto) 0 % (0-3) Basophils (%) (Auto) 0 % (0-3) Neutrophils # (Auto) 5.6 x10^3uL (1.8-7.7) Lymphocytes # (Auto) 2.1 x10^3/uL (1.0-4.8) Monocytes # (Auto) 0.7 x10^3/uL (0.0-1.1) Eosinophils # (Auto) 0.0 x10^3/uL (0.0-0.7) Basophils # (Auto) 0.0 x10^3/uL (0.0-0.2) Sodium Level 141 mmol/L (136-145) Potassium Level 4.0 mmol/L (3.5-5.1) Chloride Level 107 mmol/L (98-107) Carbon Dioxide Level 24 mmol/L (21-32) Anion Gap 10 (6-14) Blood Urea Nitrogen 36 mg/dL (8-26) Creatinine 2.6 mg/dL (0.7-1.3) Estimated GFR (Cockcroft-Gault) 31.6 Glucose Level 120 mg/dL (70-99) Calcium Level 8.9 mg/dL (8.5-10.1) O2 Saturation 99 % (92-99) 99 % (92-99) Arterial Blood pH 7.45 (7.35-7.45) 7.37 (7.35-7.45) Arterial Blood pCO2 at Patient Temp 34 mmHg (35-46) 38 mmHg (35-46) Arterial Blood pO2 at Patient Temp 217 mmHg (75-108) 146 mmHg (75-108) Arterial Blood HCO3 23 mmol/L (21-28) 22 mmol/L (21-28) Arterial Blood Base Excess -1 mmol/L (-3-3) -3 mmol/L (-3-3) FiO2 50 40 Assessment and Plan Assessmemt and Plan Problems Medical Problems: (1) Acute hypercapnic respiratory failure Status: Acute (2) CHF (congestive heart failure) Status: Acute (3) Respiratory acidosis Status: Acute Comment Review of Relevant I have reviewed the following items coleman (where applicable) has been applied. Labs Laboratory Tests Test 12/21/18 06:55 12/21/18 07:02 12/21/18 07:05 12/21/18 07:48 White Blood Count 13.2 x10^3/uL (4.0-11.0) Red Blood Count 5.16 x10^6/uL (4.30-5.70) Hemoglobin 9.7 g/dL (13.0-17.5) Hematocrit 34.9 % (39.0-53.0) Mean Corpuscular Volume 68 fL (79-100) Mean Corpuscular Hemoglobin 19 pg (25-35) Mean Corpuscular Hemoglobin Concent 28 g/dL (31-37) Red Cell Distribution Width 23.6 % (11.5-14.5) Platelet Count 377 x10^3/uL (140-400) Neutrophils (%) (Auto) 57 % (31-73) Lymphocytes (%) (Auto) 34 % (24-48) Monocytes (%) (Auto) 7 % (0-9) Eosinophils (%) (Auto) 1 % (0-3) Basophils (%) (Auto) 1 % (0-3) Neutrophils # (Auto) 7.5 x10^3uL (1.8-7.7) Lymphocytes # (Auto) 4.5 x10^3/uL (1.0-4.8) Monocytes # (Auto) 0.9 x10^3/uL (0.0-1.1) Eosinophils # (Auto) 0.1 x10^3/uL (0.0-0.7) Basophils # (Auto) 0.1 x10^3/uL (0.0-0.2) Platelet Estimate Adequate (ADEQUATE) Polychromasia Occasional Anisocytosis Mod Microcytosis Present Ovalocytes Occ Sodium Level 144 mmol/L (136-145) Potassium Level 3.8 mmol/L (3.5-5.1) Chloride Level 108 mmol/L (98-107) Carbon Dioxide Level 20 mmol/L (21-32) Anion Gap 16 (6-14) Blood Urea Nitrogen 23 mg/dL (8-26) Creatinine 2.1 mg/dL (0.7-1.3) Estimated GFR (Cockcroft-Gault) 40.5 BUN/Creatinine Ratio 11 (6-20) Glucose Level 185 mg/dL (70-99) Lactic Acid Level 7.1 mmol/L (0.4-2.0) Calcium Level 9.7 mg/dL (8.5-10.1) Total Bilirubin 0.5 mg/dL (0.2-1.0) Aspartate Amino Transf (AST/SGOT) 45 U/L (15-37) Alanine Aminotransferase (ALT/SGPT) 32 U/L (16-63) Alkaline Phosphatase 99 U/L (46-116) Troponin I Quantitative 0.299 ng/mL (0.000-0.055) UP-Skk-G-Type Natriuretic Peptide 5034 pg/mL (0-124) Total Protein 7.5 g/dL (6.4-8.2) Albumin 3.2 g/dL (3.4-5.0) Albumin/Globulin Ratio 0.7 (1.0-1.7) Glucose (Fingerstick) 147 mg/dL (70-99) O2 Saturation 97 % (92-99) Arterial Blood pH 6.90 (7.35-7.45) Arterial Blood pCO2 at Patient Temp 81 mmHg (35-46) Arterial Blood pO2 at Patient Temp 153 mmHg (75-108) Arterial Blood HCO3 16 mmol/L (21-28) Arterial Blood Base Excess -18 mmol/L (-3-3) FiO2 100 Urine Opiates Screen Neg (NEG) Urine Methadone Screen Neg (NEG) Urine Barbiturates Neg (NEG) Urine Phencyclidine Screen Neg (NEG) Urine Amphetamine/Methamphetamine Neg (NEG) Urine Benzodiazepines Screen Neg (NEG) Urine Cocaine Screen Pos (NEG) Urine Cannabinoids Screen Neg (NEG) Urine Ethyl Alcohol Neg (NEG) Test 12/21/18 09:00 12/21/18 10:46 12/21/18 11:40 12/21/18 12:10 O2 Saturation 88 % (92-99) 99 % (92-99) Arterial Blood pH 7.27 (7.35-7.45) 7.38 (7.35-7.45) Arterial Blood pCO2 at Patient Temp 48 mmHg (35-46) 36 mmHg (35-46) Arterial Blood pO2 at Patient Temp 68 mmHg (75-108) 185 mmHg (75-108) Arterial Blood HCO3 21 mmol/L (21-28) 21 mmol/L (21-28) Arterial Blood Base Excess -6 mmol/L (-3-3) -4 mmol/L (-3-3) FiO2 70 70 Influenza Type A Antigen Negative (NEGATIVE) Influenza Type B Antigen Negative (NEGATIVE) Lactic Acid Level 1.2 mmol/L (0.4-2.0) Test 12/22/18 05:45 12/22/18 08:00 12/22/18 10:50 White Blood Count 8.4 x10^3/uL (4.0-11.0) Red Blood Count 4.28 x10^6/uL (4.30-5.70) Hemoglobin 8.3 g/dL (13.0-17.5) Hematocrit 27.0 % (39.0-53.0) Mean Corpuscular Volume 63 fL (79-100) Mean Corpuscular Hemoglobin 19 pg (25-35) Mean Corpuscular Hemoglobin Concent 31 g/dL (31-37) Red Cell Distribution Width 23.4 % (11.5-14.5) Platelet Count 263 x10^3/uL (140-400) Neutrophils (%) (Auto) 67 % (31-73) Lymphocytes (%) (Auto) 25 % (24-48) Monocytes (%) (Auto) 9 % (0-9) Eosinophils (%) (Auto) 0 % (0-3) Basophils (%) (Auto) 0 % (0-3) Neutrophils # (Auto) 5.6 x10^3uL (1.8-7.7) Lymphocytes # (Auto) 2.1 x10^3/uL (1.0-4.8) Monocytes # (Auto) 0.7 x10^3/uL (0.0-1.1) Eosinophils # (Auto) 0.0 x10^3/uL (0.0-0.7) Basophils # (Auto) 0.0 x10^3/uL (0.0-0.2) Sodium Level 141 mmol/L (136-145) Potassium Level 4.0 mmol/L (3.5-5.1) Chloride Level 107 mmol/L (98-107) Carbon Dioxide Level 24 mmol/L (21-32) Anion Gap 10 (6-14) Blood Urea Nitrogen 36 mg/dL (8-26) Creatinine 2.6 mg/dL (0.7-1.3) Estimated GFR (Cockcroft-Gault) 31.6 Glucose Level 120 mg/dL (70-99) Calcium Level 8.9 mg/dL (8.5-10.1) O2 Saturation 99 % (92-99) 99 % (92-99) Arterial Blood pH 7.45 (7.35-7.45) 7.37 (7.35-7.45) Arterial Blood pCO2 at Patient Temp 34 mmHg (35-46) 38 mmHg (35-46) Arterial Blood pO2 at Patient Temp 217 mmHg (75-108) 146 mmHg (75-108) Arterial Blood HCO3 23 mmol/L (21-28) 22 mmol/L (21-28) Arterial Blood Base Excess -1 mmol/L (-3-3) -3 mmol/L (-3-3) FiO2 50 40 Laboratory Tests Test 12/22/18 05:45 12/22/18 08:00 12/22/18 10:50 White Blood Count 8.4 x10^3/uL (4.0-11.0) Red Blood Count 4.28 x10^6/uL (4.30-5.70) Hemoglobin 8.3 g/dL (13.0-17.5) Hematocrit 27.0 % (39.0-53.0) Mean Corpuscular Volume 63 fL (79-100) Mean Corpuscular Hemoglobin 19 pg (25-35) Mean Corpuscular Hemoglobin Concent 31 g/dL (31-37) Red Cell Distribution Width 23.4 % (11.5-14.5) Platelet Count 263 x10^3/uL (140-400) Neutrophils (%) (Auto) 67 % (31-73) Lymphocytes (%) (Auto) 25 % (24-48) Monocytes (%) (Auto) 9 % (0-9) Eosinophils (%) (Auto) 0 % (0-3) Basophils (%) (Auto) 0 % (0-3) Neutrophils # (Auto) 5.6 x10^3uL (1.8-7.7) Lymphocytes # (Auto) 2.1 x10^3/uL (1.0-4.8) Monocytes # (Auto) 0.7 x10^3/uL (0.0-1.1) Eosinophils # (Auto) 0.0 x10^3/uL (0.0-0.7) Basophils # (Auto) 0.0 x10^3/uL (0.0-0.2) Sodium Level 141 mmol/L (136-145) Potassium Level 4.0 mmol/L (3.5-5.1) Chloride Level 107 mmol/L (98-107) Carbon Dioxide Level 24 mmol/L (21-32) Anion Gap 10 (6-14) Blood Urea Nitrogen 36 mg/dL (8-26) Creatinine 2.6 mg/dL (0.7-1.3) Estimated GFR (Cockcroft-Gault) 31.6 Glucose Level 120 mg/dL (70-99) Calcium Level 8.9 mg/dL (8.5-10.1) O2 Saturation 99 % (92-99) 99 % (92-99) Arterial Blood pH 7.45 (7.35-7.45) 7.37 (7.35-7.45) Arterial Blood pCO2 at Patient Temp 34 mmHg (35-46) 38 mmHg (35-46) Arterial Blood pO2 at Patient Temp 217 mmHg (75-108) 146 mmHg (75-108) Arterial Blood HCO3 23 mmol/L (21-28) 22 mmol/L (21-28) Arterial Blood Base Excess -1 mmol/L (-3-3) -3 mmol/L (-3-3) FiO2 50 40 Microbiology 12/21/18 Blood Culture - Preliminary, Resulted NO GROWTH AFTER 1 DAY Medications Current Medications Ipratropium [place] (Atrovent) 0.5 mg 1X ONCE NEB Last administered on at 08:48; Start 12/21/18 at 07:00; Stop 12/21/18 at 07:03; Status DC Methylprednisolone Sodium Succinate (SOLU-Medrol 125MG VIAL) 125 mg 1X ONCE IV Last administered on 12/21/18at 08:05; Start 12/21/18 at 07:00; Stop 12/21/18 at 07:03; Status DC Albuterol Sulfate (Ventolin Neb Soln) 10 mg 1X ONCE CONT NEB Last administered on 12/21/18at 08:45; Start 12/21/18 at 07:00; Stop 12/21/18 at 07:03; Status DC Magnesium Sulfate 50 ml @ 25 mls/hr 1X ONCE IV Last administered on 12/21/18at 07:56; Start 12/21/18 at 07:00; Stop 12/21/18 at 08:59; Status DC Propofol 50 ml @ As Directed STK-MED ONCE IV ; Start 12/21/18 at 07:21; Stop 12/21 at 07:23; Status DC Sodium Chloride 1,000 ml @ 1,000 mls/hr 1X ONCE IV Last administered on at 07:00; Start 12/21/18 at 07:30; Stop 12/21/18 at 08:29; Status DC Propofol 100 ml @ 0 mls/hr CONT PRN IV SEE PROTOCOL Last administered on at 07:29; Start 12/21/18 at 07:30; Stop 12/21/18 at 11:56; Status DC Sodium Bicarbonate 150 meq/Sterile Water 1,150 ml @ 125 mls/hr 1X ONCE IV Last administered on 12/21/18at 07:57; Start 12/21/18 at 07:45; Stop 12/21/18 at 16: 56; Status DC Etomidate (Amidate) 20 mg STK-MED ONCE IV ; Start 12/21/18 at 08:20; Stop at 08:22; Status DC Vecuronium [place] (Norcuron Bolus) 10 mg STK-MED ONCE IV ; Start 12/21/18 at 08: 20; Stop 12/21/18 at 08:23; Status DC Midazolam HCl (Versed) 5 mg STK-MED ONCE .ROUTE ; Start 12/21/18 at 08:21; Stop 12/21/18 at 08:23; Status DC Etomidate (Amidate) 25 mg 1X ONCE IV Last administered on 12/21/18at 07:21; Start 12/21/18 at 07:21; Stop 12/21/18 at 08:39; Status DC Vecuronium [place] (Norcuron Bolus) 10 mg 1X ONCE IV Last administered on 07:22; Start 12/21/18 at 07:22; Stop 12/21/18 at 08:39; Status DC Midazolam HCl (Versed) 5 mg 1X ONCE IV Last administered on 12/21/18 07:24; Start 12/21/18 at 07:24; Stop 12/21/18 at 08:39; Status DC Vecuronium [place] (Norcuron Bolus) 10 mg 1X ONCE IV Last administered on 07:25; Start 12/21/18 at 07:25; Stop 12/21/18 at 08:39; Status DC Furosemide (Lasix) 80 mg 1X ONCE IVP Last administered on 12/21/18 08:44; Start 12/21/18 at 08:45; Stop 12/21/18 at 08:46; Status DC Metoprolol Tartrate (Lopressor Vial) 5 mg 1X ONCE IVP ; Start 12/21/18 at 08:45 ; Stop 12/21/18 at 08:46; Status DC Midazolam HCl (Versed) 5 mg 1X ONCE IV Last administered on 12/21/18 08:41; Start 12/21/18 at 08:45; Stop 12/21/18 at 08:46; Status DC Furosemide (Lasix) 100 mg STK-MED ONCE .ROUTE ; Start 12/21/18 at 08:36; Stop 12/21/18 at 08:39; Status DC Midazolam HCl (Versed) 5 mg 1X ONCE NS Last administered on 12/21/18 09:48; Start 12/21/18 at 09:45; Stop 12/21/18 at 09:48; Status DC Propofol 50 ml @ As Directed STK-MED ONCE IV ; Start 12/21/18 at 09:55; Stop 12/21 at 09:57; Status DC Midazolam HCl (Versed) 5 mg 1X ONCE NS Last administered on 12/21/18 10:45; Start 12/21/18 at 11:30; Stop 12/21/18 at 11:31; Status DC Famotidine (Pepcid Vial) 20 mg BID IVP Last administered on 12/21/18 13:50; Start 12/21/18 at 14:00; Stop 12/21/18 at 14:26; Status DC Enoxaparin Sodium (Lovenox Per Pharmacy Prophylaxis Dosing) 1 each PRN DAILY PRN MC SEE COMMENTS; Start 12/21/18 at 11:45; Stop 12/21/18 at 14:27; Status DC Propofol 100 ml @ 0 mls/hr CONT PRN IV SEE I/O RECORD Last administered on at 05:50; Start 12/21/18 at 11:45 Enoxaparin Sodium (Lovenox 40mg Syringe) 40 mg Q24H SQ Last administered on 12/21at 13:50; Start 12/21/18 at 14:00 Famotidine (Pepcid Vial) 20 mg DAILY IVP Last administered on 12/22/18 09:15; Start 12/22/18 at 09:00 Amlodipine Besylate (Norvasc) 10 mg BID PO Last administered on 12/21/18at 20:28 ; Start 12/21/18 at 21:00 Aspirin (Children'S Aspirin) 81 mg DAILY PO Last administered on 12/22/18at 09:14 ; Start 12/22/18 at 09:00 Atorvastatin Calcium (Lipitor) 20 mg QHS PO Last administered on 12/21/18 20:29 ; Start 12/21/18 at 21:00 Carvedilol (Coreg) 25 mg BIDWMEALS PO Last administered on 12/22/18at 09:14; Start 12/21/18 at 17:00 Clopidogrel Bisulfate (Plavix) 75 mg DAILYWBKFT PO Last administered on at 09:13; Start 12/22/18 at 08:00 Fluticasone Propionate (Flonase) 2 spray DAILY NS ; Start 12/22/18 at 09:00 Furosemide (Lasix) 40 mg DAILY PO ; Start 12/22/18 at 09:00; Status Cancel Isosorbide Mononitrate (Imdur) 60 mg DAILY PO ; Start 12/22/18 at 09:00 Non-Formulary Medication (Albuterol Sulfate (Ventolin Hfa Inhaler)) 2 puff Q4HRS INH ; Start 12/21/18 at 20:00; Status UNV Non-Formulary Medication (Fluticasone/ Vilanterol (Breo Ellipta 200-25 Mcg INH) ) 1 puff DAILY IH ; Start 12/22/18 at 09:00; Status UNV Hydralazine HCl (Apresoline) 100 mg TID PO Last administered on 12/21/18at 20:28 ; Start 12/21/18 at 21:00 Non-Formulary Medication ([Pantoprazole] ) 40 mg BIDAC PO ; Start 12/22/18 at 07: 30; Status UNV Budesonide (Pulmicort) 0.5 mg RTBID NEB Last administered on 12/22/18at 08:14; Start 12/21/18 at 20:00 Albuterol Sulfate (Ventolin Neb Soln) 2.5 mg RTQID NEB Last administered on 12/22at 11:21; Start 12/21/18 at 20:00 Furosemide (Lasix) 40 mg DAILY IVP Last administered on 12/22/18at 09:15; Start 12/21/18 at 17:00 Active Scripts Active [Pantoprazole] 40 MG Tablet.dr 40 Mg PO BIDAC Ventolin Hfa Inhaler (Albuterol Sulfate) 18 Gm Hfa.aer.ad 2 Puff INH Q4HRS 20 Days Breo Ellipta 200-25 Mcg INH (Fluticasone/Vilanterol) 1 Each Blst.w.dev 1 Puff IH DAILY 30 Days Furosemide 40 Mg Tablet 40 Mg PO DAILY 30 Days Carvedilol 12.5 Mg Tablet 25 Mg PO BIDWMEALS 30 Days Isosorbide Mononitrate Er (Isosorbide Mononitrate) 30 Mg Tab.er.24h 60 Mg PO DAILY 30 Days Hydralazine Hcl 50 Mg Tablet 100 Mg PO TID 30 Days Clopidogrel (Clopidogrel Bisulfate) 75 Mg Tablet 75 Mg PO DAILYWBKFT 30 Days Lipitor (Atorvastatin Calcium) 20 Mg Tablet 1 Tab PO DAILY Fluticasone Propionate Nasal Calcium (Fluticasone Propionate) 1 Calcium Calcium 2 Calcium NS DAILY Reported Amlodipine Besylate 10 Mg Tablet 10 Mg PO BID Aspirin 81 Mg Tab.chew 1 Tab PO DAILY Vitals/I & O Vital Sign - Last 24 Hours 12/21/18 12/21/18 12/21/18 12/21/18 13:00 13:12 14:00 15:00 Pulse 87 91 89 Resp 25 24 24 B/P (MAP) 105/74 (84) 137/97 (110) 144/96 (112) Pulse Ox 100 100 100 100 O2 Delivery Ventilator Ventilator Ventilator Ventilator 12/21/18 12/21/18 12/21/18 12/21/18 15:04 16:00 16:00 16:53 Temp 98.5 98.5 Pulse 86 Resp 24 B/P (MAP) 128/87 (101) Pulse Ox 100 100 100 O2 Delivery Ventilator Ventilator Mechanical Ventilator Ventilator 12/21/18 12/21/18 12/21/18 12/21/18 17:00 17:25 18:00 19:00 Pulse 84 92 87 81 Resp 24 24 24 B/P (MAP) 134/89 (104) 161/101 134/90 (105) 116/79 (91) Pulse Ox 100 100 100 O2 Delivery Ventilator Ventilator Ventilator 12/21/18 12/21/18 12/21/18 12/21/18 19:43 20:00 20:00 20:28 Temp 98.5 98.5 Pulse 86 80 Resp 24 B/P (MAP) 112/77 (89) 115/77 Pulse Ox 100 100 O2 Delivery Ventilator Mechanical Ventilator Ventilator 12/21/18 12/21/18 12/21/18 12/21/18 20:28 21:00 22:00 23:00 Pulse 81 78 84 76 Resp 24 24 24 B/P (MAP) 115/77 118/84 (95) 132/88 (103) 111/76 (88) Pulse Ox 100 100 100 O2 Delivery Ventilator Ventilator Ventilator 12/21/18 12/22/18 12/22/18 12/22/18 23:37 00:00 00:01 01:00 Temp 97.9 97.9 Pulse 76 76 Resp 24 24 B/P (MAP) 117/82 (94) 119/81 (94) Pulse Ox 100 100 100 O2 Delivery Ventilator Mechanical Ventilator Ventilator Ventilator 12/22/18 12/22/18 12/22/18 12/22/18 02:00 03:00 03:53 04:00 Temp 98.2 98.2 Pulse 78 85 80 Resp 24 24 24 B/P (MAP) 131/92 (105) 133/95 (108) 128/94 (105) Pulse Ox 100 100 100 O2 Delivery Ventilator Ventilator Mechanical Ventilator Ventilator 12/22/18 12/22/18 12/22/18 12/22/18 04:00 05:00 06:00 07:00 Pulse 81 80 78 Resp 24 24 24 B/P (MAP) 114/80 (91) 127/87 (100) 113/75 (88) Pulse Ox 100 100 100 100 O2 Delivery Ventilator Ventilator Ventilator Ventilator 12/22/18 12/22/18 12/22/18 12/22/18 08:00 08:00 08:00 09:00 Temp 99.5 99.5 Pulse 80 80 Resp 24 24 B/P (MAP) 108/82 (91) 127/87 (100) Pulse Ox 100 100 100 O2 Delivery Ventilator Mechanical Ventilator Ventilator Ventilator 12/22/18 12/22/18 12/22/18 12/22/18 09:14 09:55 10:00 11:00 Pulse 83 92 90 Resp 28 26 B/P (MAP) 108/82 133/89 (104) 114/85 (95) Pulse Ox 100 100 O2 Delivery Ventilator C-pap trial C-pap trial 12/22/18 12/22/18 11:10 11:15 Pulse Ox 100 O2 Delivery Nasal Cannula Nasal Cannula O2 Flow Rate 4.0 4.0 Intake and Output 12/21/18 12/21/18 12/22/18 15:01 23:01 07:01 Intake Total 1050 ml 397 ml 790 ml Output Total 2075 ml 780 ml 425 ml Balance -1025 ml -383 ml 365 ml SAIMA BEE MD Dec 22, 2018 12:56
[2018-12-22] MEDS ORDERED: BENZOCAINE/MENTHOL LOZENGE. PO PRN (13:00)
--- NOTE | 2018-12-22 13:56 | PDOC ---
PROGRESS NOTES Subjective Subjective Patient seen and examined The patient remains intubated this morning. Objective Objective Vital Signs Date Time Temp Pulse Resp B/P (MAP) Pulse Ox O2 Delivery O2 Flow Rate FiO2 12/22/18 11:15 100 Nasal Cannula 4.0 12/22/18 11:00 90 26 114/85 (95) 12/22/18 08:00 99.5 99.5 Intake and Output 12/22/18 07:01 Intake Total 2237 ml Output Total 3280 ml Balance -1043 ml Intake IV Total 1527 ml Tube Feeding 610 ml Other 100 ml Output Urine Total 3230 ml Gastric Drainage Total 50 ml Physical Exam Abdomen: Normal bowel sounds Heart: Regular rate General: Other (intubated) Lungs: Other (mildly decreased breath sounds) Assessment Assessment Problems Medical Problems: (1) Acute hypercapnic respiratory failure Status: Acute (2) CHF (congestive heart failure) Status: Acute (3) Respiratory acidosis 1. Acute on chronic respiratory failure secondary to a/c HF; remains on a ventilator but is being weaned today. Continue present treatment. 2. 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 3. NSTEMI: h/o chronic troponin elevation; Initial troponin 0.299. Demand mediated with multiple culprits as noted above 4. Leukocytosis, lactic acidosis 5. CAD: PCI/stent 06/2017 and cath at 12/2017 with patent diagonal stent with mild disease to LAD. 6. COPD with severe pulmonary HTN with continued tobaccoism 7. HTN; controlled 8. Hyperlipidemia; statin 9. Valvular insufficiency 10. 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 Failed follow up and further w/u due to financial constraints of loss of ins. 11. CKD; CR stable per review 12. Hx of recent PUD/GI bleed 13. Substance abuse; UDS + cocaine Comment Review of Relevant I have reviewed the following items coleman (where applicable) has been applied. Labs Laboratory Tests Test 12/21/18 06:55 12/21/18 07:02 12/21/18 07:05 12/21/18 07:48 White Blood Count 13.2 x10^3/uL (4.0-11.0) Red Blood Count 5.16 x10^6/uL (4.30-5.70) Hemoglobin 9.7 g/dL (13.0-17.5) Hematocrit 34.9 % (39.0-53.0) Mean Corpuscular Volume 68 fL (79-100) Mean Corpuscular Hemoglobin 19 pg (25-35) Mean Corpuscular Hemoglobin Concent 28 g/dL (31-37) Red Cell Distribution Width 23.6 % (11.5-14.5) Platelet Count 377 x10^3/uL (140-400) Neutrophils (%) (Auto) 57 % (31-73) Lymphocytes (%) (Auto) 34 % (24-48) Monocytes (%) (Auto) 7 % (0-9) Eosinophils (%) (Auto) 1 % (0-3) Basophils (%) (Auto) 1 % (0-3) Neutrophils # (Auto) 7.5 x10^3uL (1.8-7.7) Lymphocytes # (Auto) 4.5 x10^3/uL (1.0-4.8) Monocytes # (Auto) 0.9 x10^3/uL (0.0-1.1) Eosinophils # (Auto) 0.1 x10^3/uL (0.0-0.7) Basophils # (Auto) 0.1 x10^3/uL (0.0-0.2) Platelet Estimate Adequate (ADEQUATE) Polychromasia Occasional Anisocytosis Mod Microcytosis Present Ovalocytes Occ Sodium Level 144 mmol/L (136-145) Potassium Level 3.8 mmol/L (3.5-5.1) Chloride Level 108 mmol/L (98-107) Carbon Dioxide Level 20 mmol/L (21-32) Anion Gap 16 (6-14) Blood Urea Nitrogen 23 mg/dL (8-26) Creatinine 2.1 mg/dL (0.7-1.3) Estimated GFR (Cockcroft-Gault) 40.5 BUN/Creatinine Ratio 11 (6-20) Glucose Level 185 mg/dL (70-99) Lactic Acid Level 7.1 mmol/L (0.4-2.0) Calcium Level 9.7 mg/dL (8.5-10.1) Total Bilirubin 0.5 mg/dL (0.2-1.0) Aspartate Amino Transf (AST/SGOT) 45 U/L (15-37) Alanine Aminotransferase (ALT/SGPT) 32 U/L (16-63) Alkaline Phosphatase 99 U/L (46-116) Troponin I Quantitative 0.299 ng/mL (0.000-0.055) RJ-[id number]-Type Natriuretic Peptide 5034 pg/mL (0-124) Total Protein 7.5 g/dL (6.4-8.2) Albumin 3.2 g/dL (3.4-5.0) Albumin/Globulin Ratio 0.7 (1.0-1.7) Glucose (Fingerstick) 147 mg/dL (70-99) O2 Saturation 97 % (92-99) Arterial Blood pH 6.90 (7.35-7.45) Arterial Blood pCO2 at Patient Temp 81 mmHg (35-46) Arterial Blood pO2 at Patient Temp 153 mmHg (75-108) Arterial Blood HCO3 16 mmol/L (21-28) Arterial Blood Base Excess -18 mmol/L (-3-3) FiO2 100 Urine Opiates Screen Neg (NEG) Urine Methadone Screen Neg (NEG) Urine Barbiturates Neg (NEG) Urine Phencyclidine Screen Neg (NEG) Urine Amphetamine/Methamphetamine Neg (NEG) Urine Benzodiazepines Screen Neg (NEG) Urine Cocaine Screen Pos (NEG) Urine Cannabinoids Screen Neg (NEG) Urine Ethyl Alcohol Neg (NEG) Test 12/21/18 09:00 12/21/18 10:46 12/21/18 11:40 12/21/18 12:10 O2 Saturation 88 % (92-99) 99 % (92-99) Arterial Blood pH 7.27 (7.35-7.45) 7.38 (7.35-7.45) Arterial Blood pCO2 at Patient Temp 48 mmHg (35-46) 36 mmHg (35-46) Arterial Blood pO2 at Patient Temp 68 mmHg (75-108) 185 mmHg (75-108) Arterial Blood HCO3 21 mmol/L (21-28) 21 mmol/L (21-28) Arterial Blood Base Excess -6 mmol/L (-3-3) -4 mmol/L (-3-3) FiO2 70 70 Influenza Type A Antigen Negative (NEGATIVE) Influenza Type B Antigen Negative (NEGATIVE) Lactic Acid Level 1.2 mmol/L (0.4-2.0) Test 12/22/18 05:45 12/22/18 08:00 12/22/18 10:50 White Blood Count 8.4 x10^3/uL (4.0-11.0) Red Blood Count 4.28 x10^6/uL (4.30-5.70) Hemoglobin 8.3 g/dL (13.0-17.5) Hematocrit 27.0 % (39.0-53.0) Mean Corpuscular Volume 63 fL (79-100) Mean Corpuscular Hemoglobin 19 pg (25-35) Mean Corpuscular Hemoglobin Concent 31 g/dL (31-37) Red Cell Distribution Width 23.4 % (11.5-14.5) Platelet Count 263 x10^3/uL (140-400) Neutrophils (%) (Auto) 67 % (31-73) Lymphocytes (%) (Auto) 25 % (24-48) Monocytes (%) (Auto) 9 % (0-9) Eosinophils (%) (Auto) 0 % (0-3) Basophils (%) (Auto) 0 % (0-3) Neutrophils # (Auto) 5.6 x10^3uL (1.8-7.7) Lymphocytes # (Auto) 2.1 x10^3/uL (1.0-4.8) Monocytes # (Auto) 0.7 x10^3/uL (0.0-1.1) Eosinophils # (Auto) 0.0 x10^3/uL (0.0-0.7) Basophils # (Auto) 0.0 x10^3/uL (0.0-0.2) Sodium Level 141 mmol/L (136-145) Potassium Level 4.0 mmol/L (3.5-5.1) Chloride Level 107 mmol/L (98-107) Carbon Dioxide Level 24 mmol/L (21-32) Anion Gap 10 (6-14) Blood Urea Nitrogen 36 mg/dL (8-26) Creatinine 2.6 mg/dL (0.7-1.3) Estimated GFR (Cockcroft-Gault) 31.6 Glucose Level 120 mg/dL (70-99) Calcium Level 8.9 mg/dL (8.5-10.1) O2 Saturation 99 % (92-99) 99 % (92-99) Arterial Blood pH 7.45 (7.35-7.45) 7.37 (7.35-7.45) Arterial Blood pCO2 at Patient Temp 34 mmHg (35-46) 38 mmHg (35-46) Arterial Blood pO2 at Patient Temp 217 mmHg (75-108) 146 mmHg (75-108) Arterial Blood HCO3 23 mmol/L (21-28) 22 mmol/L (21-28) Arterial Blood Base Excess -1 mmol/L (-3-3) -3 mmol/L (-3-3) FiO2 50 40 Laboratory Tests Test 12/22/18 05:45 12/22/18 08:00 12/22/18 10:50 White Blood Count 8.4 x10^3/uL (4.0-11.0) Red Blood Count 4.28 x10^6/uL (4.30-5.70) Hemoglobin 8.3 g/dL (13.0-17.5) Hematocrit 27.0 % (39.0-53.0) Mean Corpuscular Volume 63 fL (79-100) Mean Corpuscular Hemoglobin 19 pg (25-35) Mean Corpuscular Hemoglobin Concent 31 g/dL (31-37) Red Cell Distribution Width 23.4 % (11.5-14.5) Platelet Count 263 x10^3/uL (140-400) Neutrophils (%) (Auto) 67 % (31-73) Lymphocytes (%) (Auto) 25 % (24-48) Monocytes (%) (Auto) 9 % (0-9) Eosinophils (%) (Auto) 0 % (0-3) Basophils (%) (Auto) 0 % (0-3) Neutrophils # (Auto) 5.6 x10^3uL (1.8-7.7) Lymphocytes # (Auto) 2.1 x10^3/uL (1.0-4.8) Monocytes # (Auto) 0.7 x10^3/uL (0.0-1.1) Eosinophils # (Auto) 0.0 x10^3/uL (0.0-0.7) Basophils # (Auto) 0.0 x10^3/uL (0.0-0.2) Sodium Level 141 mmol/L (136-145) Potassium Level 4.0 mmol/L (3.5-5.1) Chloride Level 107 mmol/L (98-107) Carbon Dioxide Level 24 mmol/L (21-32) Anion Gap 10 (6-14) Blood Urea Nitrogen 36 mg/dL (8-26) Creatinine 2.6 mg/dL (0.7-1.3) Estimated GFR (Cockcroft-Gault) 31.6 Glucose Level 120 mg/dL (70-99) Calcium Level 8.9 mg/dL (8.5-10.1) O2 Saturation 99 % (92-99) 99 % (92-99) Arterial Blood pH 7.45 (7.35-7.45) 7.37 (7.35-7.45) Arterial Blood pCO2 at Patient Temp 34 mmHg (35-46) 38 mmHg (35-46) Arterial Blood pO2 at Patient Temp 217 mmHg (75-108) 146 mmHg (75-108) Arterial Blood HCO3 23 mmol/L (21-28) 22 mmol/L (21-28) Arterial Blood Base Excess -1 mmol/L (-3-3) -3 mmol/L (-3-3) FiO2 50 40 Microbiology 12/21/18 Blood Culture - Preliminary, Resulted NO GROWTH AFTER 1 DAY Medications Current Medications Ipratropium [place] (Atrovent) 0.5 mg 1X ONCE NEB Last administered on at 08:48; Start 12/21/18 at 07:00; Stop 12/21/18 at 07:03; Status DC Methylprednisolone Sodium Succinate (SOLU-Medrol 125MG VIAL) 125 mg 1X ONCE IV Last administered on 12/21/18at 08:05; Start 12/21/18 at 07:00; Stop 12/21/18 at 07:03; Status DC Albuterol Sulfate (Ventolin Neb Soln) 10 mg 1X ONCE CONT NEB Last administered on 12/21/18at 08:45; Start 12/21/18 at 07:00; Stop 12/21/18 at 07:03; Status DC Magnesium Sulfate 50 ml @ 25 mls/hr 1X ONCE IV Last administered on 12/21/18at 07:56; Start 12/21/18 at 07:00; Stop 12/21/18 at 08:59; Status DC Propofol 50 ml @ As Directed STK-MED ONCE IV ; Start 12/21/18 at 07:21; Stop 12/21 at 07:23; Status DC Sodium Chloride 1,000 ml @ 1,000 mls/hr 1X ONCE IV Last administered on at 07:00; Start 12/21/18 at 07:30; Stop 12/21/18 at 08:29; Status DC Propofol 100 ml @ 0 mls/hr CONT PRN IV SEE PROTOCOL Last administered on at 07:29; Start 12/21/18 at 07:30; Stop 12/21/18 at 11:56; Status DC Sodium Bicarbonate 150 meq/Sterile Water 1,150 ml @ 125 mls/hr 1X ONCE IV Last administered on 12/21/18at 07:57; Start 12/21/18 at 07:45; Stop 12/21/18 at 16: 56; Status DC Etomidate (Amidate) 20 mg STK-MED ONCE IV ; Start 12/21/18 at 08:20; Stop at 08:22; Status DC Vecuronium [place] (Norcuron Bolus) 10 mg STK-MED ONCE IV ; Start 12/21/18 at 08: 20; Stop 12/21/18 at 08:23; Status DC Midazolam HCl (Versed) 5 mg STK-MED ONCE .ROUTE ; Start 12/21/18 at 08:21; Stop 12/21/18 at 08:23; Status DC Etomidate (Amidate) 25 mg 1X ONCE IV Last administered on 12/21/18 07:21; Start 12/21/18 at 07:21; Stop 12/21/18 at 08:39; Status DC Vecuronium [place] (Norcuron Bolus) 10 mg 1X ONCE IV Last administered on 07:22; Start 12/21/18 at 07:22; Stop 12/21/18 at 08:39; Status DC Midazolam HCl (Versed) 5 mg 1X ONCE IV Last administered on 12/21/18 07:24; Start 12/21/18 at 07:24; Stop 12/21/18 at 08:39; Status DC Vecuronium [place] (Norcuron Bolus) 10 mg 1X ONCE IV Last administered on 07:25; Start 12/21/18 at 07:25; Stop 12/21/18 at 08:39; Status DC Furosemide (Lasix) 80 mg 1X ONCE IVP Last administered on 12/21/18 08:44; Start 12/21/18 at 08:45; Stop 12/21/18 at 08:46; Status DC Metoprolol Tartrate (Lopressor Vial) 5 mg 1X ONCE IVP ; Start 12/21/18 at 08:45 ; Stop 12/21/18 at 08:46; Status DC Midazolam HCl (Versed) 5 mg 1X ONCE IV Last administered on 12/21/18at 08:41; Start 12/21/18 at 08:45; Stop 12/21/18 at 08:46; Status DC Furosemide (Lasix) 100 mg STK-MED ONCE .ROUTE ; Start 12/21/18 at 08:36; Stop 12/21/18 at 08:39; Status DC Midazolam HCl (Versed) 5 mg 1X ONCE NS Last administered on 12/21/18at 09:48; Start 12/21/18 at 09:45; Stop 12/21/18 at 09:48; Status DC Propofol 50 ml @ As Directed STK-MED ONCE IV ; Start 12/21/18 at 09:55; Stop 12/21 at 09:57; Status DC Midazolam HCl (Versed) 5 mg 1X ONCE NS Last administered on 12/21/18at 10:45; Start 12/21/18 at 11:30; Stop 12/21/18 at 11:31; Status DC Famotidine (Pepcid Vial) 20 mg BID IVP Last administered on 12/21/18at 13:50; Start 12/21/18 at 14:00; Stop 12/21/18 at 14:26; Status DC Enoxaparin Sodium (Lovenox Per Pharmacy Prophylaxis Dosing) 1 each PRN DAILY PRN MC SEE COMMENTS; Start 12/21/18 at 11:45; Stop 12/21/18 at 14:27; Status DC Propofol 100 ml @ 0 mls/hr CONT PRN IV SEE I/O RECORD Last administered on at 05:50; Start 12/21/18 at 11:45 Enoxaparin Sodium (Lovenox 40mg Syringe) 40 mg Q24H SQ Last administered on 12/21at 13:50; Start 12/21/18 at 14:00 Famotidine (Pepcid Vial) 20 mg DAILY IVP Last administered on 12/22/18at 09:15; Start 12/22/18 at 09:00 Amlodipine Besylate (Norvasc) 10 mg BID PO Last administered on 12/21/18 20:28 ; Start 12/21/18 at 21:00 Aspirin (Children'S Aspirin) 81 mg DAILY PO Last administered on 12/22/18 09:14 ; Start 12/22/18 at 09:00 Atorvastatin Calcium (Lipitor) 20 mg QHS PO Last administered on 12/21/18 20:29 ; Start 12/21/18 at 21:00 Carvedilol (Coreg) 25 mg BIDWMEALS PO Last administered on 12/22/18 09:14; Start 12/21/18 at 17:00 Clopidogrel Bisulfate (Plavix) 75 mg DAILYWBKFT PO Last administered on 09:13; Start 12/22/18 at 08:00 Fluticasone Propionate (Flonase) 2 spray DAILY NS ; Start 12/22/18 at 09:00 Furosemide (Lasix) 40 mg DAILY PO ; Start 12/22/18 at 09:00; Status Cancel Isosorbide Mononitrate (Imdur) 60 mg DAILY PO ; Start 12/22/18 at 09:00 Non-Formulary Medication (Albuterol Sulfate (Ventolin Hfa Inhaler)) 2 puff Q4HRS INH ; Start 12/21/18 at 20:00; Status UNV Non-Formulary Medication (Fluticasone/ Vilanterol (Breo Ellipta 200-25 Mcg INH) ) 1 puff DAILY IH ; Start 12/22/18 at 09:00; Status UNV Hydralazine HCl (Apresoline) 100 mg TID PO Last administered on 12/21/18 20:28 ; Start 12/21/18 at 21:00 Non-Formulary Medication ([Pantoprazole] ) 40 mg BIDAC PO ; Start 12/22/18 at 07: 30; Status UNV Budesonide (Pulmicort) 0.5 mg RTBID NEB Last administered on 12/22/18 08:14; Start 12/21/18 at 20:00 Albuterol Sulfate (Ventolin Neb Soln) 2.5 mg RTQID NEB Last administered on 12/22 11:21; Start 12/21/18 at 20:00 Furosemide (Lasix) 40 mg DAILY IVP Last administered on 2/9/19at 09:15; Start 12/21/18 at 17:00 Throat Lozenges (Cepacol Sore Throat Lozenge) 1 rashi PRN Q2HRS PRN PO SORE THROAT; Start 12/22/18 at 13:00 Active Scripts Active [Pantoprazole] 40 MG Tablet.dr 40 Mg PO BIDAC Ventolin Hfa Inhaler (Albuterol Sulfate) 18 Gm Hfa.aer.ad 2 Puff INH Q4HRS 20 Days Breo Ellipta 200-25 Mcg INH (Fluticasone/Vilanterol) 1 Each Blst.w.dev 1 Puff IH DAILY 30 Days Furosemide 40 Mg Tablet 40 Mg PO DAILY 30 Days Carvedilol 12.5 Mg Tablet 25 Mg PO BIDWMEALS 30 Days Isosorbide Mononitrate Er (Isosorbide Mononitrate) 30 Mg Tab.er.24h 60 Mg PO DAILY 30 Days Hydralazine Hcl 50 Mg Tablet 100 Mg PO TID 30 Days Clopidogrel (Clopidogrel Bisulfate) 75 Mg Tablet 75 Mg PO DAILYWBKFT 30 Days Lipitor (Atorvastatin Calcium) 20 Mg Tablet 1 Tab PO DAILY Fluticasone Propionate Nasal [place] (Fluticasone Propionate) 1 [place] 2 [place] NS DAILY Reported Amlodipine Besylate 10 Mg Tablet 10 Mg PO BID Aspirin 81 Mg Tab.chew 1 Tab PO DAILY Vitals/I & O Vital Sign - Last 24 Hours 12/21/18 12/21/18 12/21/18 12/21/18 14:00 15:00 15:04 16:00 Temp 98.5 98.5 Pulse 91 89 86 Resp 24 24 24 B/P (MAP) 137/97 (110) 144/96 (112) 128/87 (101) Pulse Ox 100 100 100 100 O2 Delivery Ventilator Ventilator Ventilator Ventilator 12/21/18 12/21/18 12/21/18 12/21/18 16:00 16:53 17:00 17:25 Pulse 84 92 Resp 24 B/P (MAP) 134/89 (104) 161/101 Pulse Ox 100 100 O2 Delivery Mechanical Ventilator Ventilator Ventilator 12/21/18 12/21/18 12/21/18 12/21/18 18:00 19:00 19:43 20:00 Pulse 87 81 Resp 24 24 B/P (MAP) 134/90 (105) 116/79 (91) Pulse Ox 100 100 100 O2 Delivery Ventilator Ventilator Ventilator Mechanical Ventilator 12/21/18 12/21/18 12/21/18 12/21/18 20:00 20:28 20:28 21:00 Temp 98.5 98.5 Pulse 86 80 81 78 Resp 24 24 B/P (MAP) 112/77 (89) 115/77 115/77 118/84 (95) Pulse Ox 100 100 O2 Delivery Ventilator Ventilator 12/21/18 12/21/18 12/21/18 12/22/18 22:00 23:00 23:37 00:00 Pulse 84 76 Resp 24 24 B/P (MAP) 132/88 (103) 111/76 (88) Pulse Ox 100 100 100 O2 Delivery Ventilator Ventilator Ventilator Mechanical Ventilator 12/22/18 12/22/18 12/22/18 12/22/18 00:01 01:00 02:00 03:00 Temp 97.9 97.9 Pulse 76 76 78 85 Resp 24 24 24 24 B/P (MAP) 117/82 (94) 119/81 (94) 131/92 (105) 133/95 (108) Pulse Ox 100 100 100 100 O2 Delivery Ventilator Ventilator Ventilator Ventilator 12/22/18 12/22/18 12/22/18 12/22/18 03:53 04:00 04:00 05:00 Temp 98.2 98.2 Pulse 80 81 Resp 24 24 B/P (MAP) 128/94 (105) 114/80 (91) Pulse Ox 100 100 100 O2 Delivery Mechanical Ventilator Ventilator Ventilator Ventilator 12/22/18 12/22/18 12/22/18 12/22/18 06:00 07:00 08:00 08:00 Pulse 80 78 Resp 24 24 B/P (MAP) 127/87 (100) 113/75 (88) Pulse Ox 100 100 100 O2 Delivery Ventilator Ventilator Ventilator Mechanical Ventilator 12/22/18 12/22/18 12/22/18 12/22/18 08:00 09:00 09:14 09:55 Temp 99.5 99.5 Pulse 80 80 83 Resp 24 24 B/P (MAP) 108/82 (91) 127/87 (100) 108/82 Pulse Ox 100 100 O2 Delivery Ventilator Ventilator Ventilator 12/22/18 12/22/18 12/22/18 12/22/18 10:00 11:00 11:10 11:15 Pulse 92 90 Resp 28 26 B/P (MAP) 133/89 (104) 114/85 (95) Pulse Ox 100 100 100 O2 Delivery C-pap trial C-pap trial Nasal Cannula Nasal Cannula O2 Flow Rate 4.0 4.0 Intake and Output 12/21/18 12/21/18 12/22/18 15:01 23:01 07:01 Intake Total 1050 ml 397 ml 790 ml Output Total 2075 ml 780 ml 425 ml Balance -1025 ml -383 ml 365 ml PHILIP DUNAWAY MD Dec 22, 2018 13:56
[2018-12-22] MEDS: ENOXAPARIN 40 MG/0.4 ML SYRINGE. SQ SCH ×2 (14:40→14:43)
[2018-12-22] MEDS: ISOSORBIDE MONONITRATE ER 30 MG TAB.ER.24H PO SCH (14:55)
[2018-12-22] MEDS: ATORVASTATIN CALCIUM 20 MG TABLET PO SCH (20:14)
--- NOTE | 2018-12-22 22:46 | NUR ---
Pt c/o catheter tenderness and requested removal. This RN removed resendiz cath at 2009 on 12/22 with no issues.
[2018-12-22] MEDS ORDERED: ACETAMINOPHEN 500 MG TABLET PO PRN (23:45)
[2018-12-23] VITALS (15 sets, daily range): BP systolic 99–146; BP diastolic 64–106
--- NOTE | 2018-12-23 05:29 | EKG ---
[facility] [address] [place] [address] Test Date: 2018-12-23 Test Time: 05:26:52 Pat Name: KIRBY GARCIA Department: Room: 111 1 Gender: M Final Finisher: : 1965 Requested By: AARTI TORRE Order Number: [id number] Reading MD: Aarti Torre MD Measurements Intervals [place] Rate: 89 P: -90 NC: 100 QRS: -52 QRSD: 104 T: 66 QT: 376 QTc: 459 Interpretive Statements SR PVC'S NON-SPECIFIC ST/T CHANGES Electronically Signed On 12-27-2018 10:21:52 UI SOFTWARE DEVELOPER by Aarti Torre MD
[2018-12-23] MEDS ORDERED: NITROGLYCERIN SUBLINGUAL 0.4 MG BOTTLE OF 25. SL ONE ×2 (05:40→06:00)
[2018-12-23] MEDS ORDERED: NITROGLYCERIN SUBLINGUAL 0.4 MG BOTTLE OF 25. SL PRN (05:45)
--- NOTE | 2018-12-23 06:05 | NUR ---
At approx 0515, pt c/o chest pressure on his left chest. 10/10 pain scale. Stat EKG was done. Pt was already feeling better before getting the EKG, but was still a 5/10 pain scale. Nitro SL was given. Pt BP 143/98. Pt stated that "I felt a pressure and felt like his heart was beating hard and fast". Pt heart rate was 80-90bpm in SR with occasional PVC's. Will keep pt NPO. Will continue to monitor pt closely.
[2018-12-23 07:10] LABS: ALBUMIN 2.5 g/dL (3.4-5.0); CALCIUM 8.7 mg/dL (8.5-10.1); CREATININE 1.9 mg/dL (0.7-1.3); GFR 45.4; PHOSPHORUS 3.3 mg/dL (2.6-4.7); POTASSIUM 3.6 mmol/L (3.5-5.1)
[2018-12-23] MEDS: BUDESONIDE 0.5 MG/2 ML NEBU. NEB SCH ×2 (08:20→20:05)
[2018-12-23] MEDS: ALBUTEROL SULFATE 2.5 MG/3 ML NEBU. NEB SCH ×4 (08:20→20:05)
--- NOTE | 2018-12-23 08:37 | RAD ---
Indication:Intubated TECHNIQUE:Portable AP chest X-ray COMPARISON: 12/22/2018 FINDINGS: Interval extubation. Heart is mildly enlarged in size. Lungs are hyperinflated without focal consolidation. Mild prominence of interstitium. No pneumothorax or pleural effusion. Visualized bony thorax is within normal limits. IMPRESSION: 1. Interval extubation. Mild prominence of interstitium may be secondary to trace interstitial pulmonary edema or atypical/viral infection.w Electronically signed by: Pillo Liang DO (12/23/2018 8:32 AM) [facility]
[2018-12-23] MEDS: ISOSORBIDE MONONITRATE ER 30 MG TAB.ER.24H PO SCH (09:07)
[2018-12-23] MEDS: CARVEDILOL 12.5 MG TABLET. PO SCH ×2 (09:08→17:29)
[2018-12-23] MEDS: ASPIRIN CHEWABLE 81 MG TABLET. PO SCH (09:09)
[2018-12-23] MEDS: FUROSEMIDE 40 MG/4 ML VIAL. IVP SCH (09:10)
[2018-12-23] MEDS: amLODIPine BESYLATE 10 MG TABLET PO SCH ×2 (09:10→20:30)
[2018-12-23] MEDS: FLUTICASONE 50MCG/NASAL SPRAY 16GM BOTTLE. NS SCH (09:13)
--- NOTE | 2018-12-23 10:30 | PDOC ---
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 Uncontrolled hypertension. Coronary artery disease with previous percutaneous coronary intervention at [facility]. Secondary pulmonary hypertension. Paroxysmal supraventricular tachycardia. Chronic kidney disease stage 3 History of Present Illness History of Present Illness 53 yo male w/ PMHx CHF, PUD w/ H. pylori, pulm HTN who presented secondary to respiratory distress. at bedside. Reports shortness of breath has been ongoing for the last couple weeks. Patient initially placed on BiPAP, but was combative with Oxygen saturations 39 % upon arrival was intubated. Has a history of CAD s/p PCI/stent 06/2017 and recath at 12/2017 that showed patent diagonal stent with mild disease to LAD. 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 Patient has failed followup for further workup. 12/22: Managed ok on vent overnight. Seen after extubation and successful CPAP trial. He does not currently have any cardiac complaints outside of shortness of breath and he would like to eat. Sore throat Overnight no events. Cr. improved from 2.6-->1.9. Had a brief episode of CP that resolved with NTG this morning. His troponin actually continues to come down, no new changes on tele. He is asking for food. Plan: Diurese BP control Lactate normalized Ok for cardiac diet today Monitor Cr daily Monitor blood pressure closely and follow Cardiology's recommendation. DVT and stress ulcer prophylaxis. Needs to quit cocaine Discussed with RN, RT Can step down from ICU today. Vitals Vitals Vital Signs Date Time Temp Pulse Resp B/P (MAP) Pulse Ox O2 Delivery O2 Flow Rate FiO2 12/23/18 09:10 89 146/99 12/23/18 08:23 98 Nasal Cannula 2.0 12/23/18 06:00 26 12/23/18 04:00 98.0 98.0 Physical Exam General: Alert, Oriented X3, Cooperative Heart: Regular rate Lungs: Clear Abdomen: Normal bowel sounds Extremities: Other (1-2+ bilateral LE edema ) Skin: No significant lesion Labs LABS Laboratory Tests Test 12/22/18 10:50 12/23/18 06:40 O2 Saturation 99 % (92-99) Arterial Blood pH 7.37 (7.35-7.45) Arterial Blood pCO2 at Patient Temp 38 mmHg (35-46) Arterial Blood pO2 at Patient Temp 146 mmHg (75-108) Arterial Blood HCO3 22 mmol/L (21-28) Arterial Blood Base Excess -3 mmol/L (-3-3) FiO2 40 Sodium Level 143 mmol/L (136-145) Potassium Level 3.6 mmol/L (3.5-5.1) Chloride Level 109 mmol/L (98-107) Carbon Dioxide Level 26 mmol/L (21-32) Anion Gap 8 (6-14) Blood Urea Nitrogen 29 mg/dL (8-26) Creatinine 1.9 mg/dL (0.7-1.3) Estimated GFR (Cockcroft-Gault) 45.4 Glucose Level 97 mg/dL (70-99) Calcium Level 8.7 mg/dL (8.5-10.1) Phosphorus Level 3.3 mg/dL (2.6-4.7) Troponin I Quantitative 0.269 ng/mL (0.000-0.055) Albumin 2.5 g/dL (3.4-5.0) Assessment and Plan Assessmemt and Plan Problems Medical Problems: (1) Acute hypercapnic respiratory failure Status: Acute (2) CHF (congestive heart failure) Status: Acute (3) Respiratory acidosis Status: Acute Comment Review of Relevant I have reviewed the following items coleman (where applicable) has been applied. Labs Laboratory Tests Test 12/21/18 10:46 12/21/18 11:40 12/21/18 12:10 12/22/18 05:45 Influenza Type A Antigen Negative (NEGATIVE) Influenza Type B Antigen Negative (NEGATIVE) O2 Saturation 99 % (92-99) Arterial Blood pH 7.38 (7.35-7.45) Arterial Blood pCO2 at Patient Temp 36 mmHg (35-46) Arterial Blood pO2 at Patient Temp 185 mmHg (75-108) Arterial Blood HCO3 21 mmol/L (21-28) Arterial Blood Base Excess -4 mmol/L (-3-3) FiO2 70 Lactic Acid Level 1.2 mmol/L (0.4-2.0) White Blood Count 8.4 x10^3/uL (4.0-11.0) Red Blood Count 4.28 x10^6/uL (4.30-5.70) Hemoglobin 8.3 g/dL (13.0-17.5) Hematocrit 27.0 % (39.0-53.0) Mean Corpuscular Volume 63 fL (79-100) Mean Corpuscular Hemoglobin 19 pg (25-35) Mean Corpuscular Hemoglobin Concent 31 g/dL (31-37) Red Cell Distribution Width 23.4 % (11.5-14.5) Platelet Count 263 x10^3/uL (140-400) Neutrophils (%) (Auto) 67 % (31-73) Lymphocytes (%) (Auto) 25 % (24-48) Monocytes (%) (Auto) 9 % (0-9) Eosinophils (%) (Auto) 0 % (0-3) Basophils (%) (Auto) 0 % (0-3) Neutrophils # (Auto) 5.6 x10^3uL (1.8-7.7) Lymphocytes # (Auto) 2.1 x10^3/uL (1.0-4.8) Monocytes # (Auto) 0.7 x10^3/uL (0.0-1.1) Eosinophils # (Auto) 0.0 x10^3/uL (0.0-0.7) Basophils # (Auto) 0.0 x10^3/uL (0.0-0.2) Sodium Level 141 mmol/L (136-145) Potassium Level 4.0 mmol/L (3.5-5.1) Chloride Level 107 mmol/L (98-107) Carbon Dioxide Level 24 mmol/L (21-32) Anion Gap 10 (6-14) Blood Urea Nitrogen 36 mg/dL (8-26) Creatinine 2.6 mg/dL (0.7-1.3) Estimated GFR (Cockcroft-Gault) 31.6 Glucose Level 120 mg/dL (70-99) Calcium Level 8.9 mg/dL (8.5-10.1) Test 12/22/18 08:00 12/22/18 10:50 12/23/18 06:40 O2 Saturation 99 % (92-99) 99 % (92-99) Arterial Blood pH 7.45 (7.35-7.45) 7.37 (7.35-7.45) Arterial Blood pCO2 at Patient Temp 34 mmHg (35-46) 38 mmHg (35-46) Arterial Blood pO2 at Patient Temp 217 mmHg (75-108) 146 mmHg (75-108) Arterial Blood HCO3 23 mmol/L (21-28) 22 mmol/L (21-28) Arterial Blood Base Excess -1 mmol/L (-3-3) -3 mmol/L (-3-3) FiO2 50 40 Sodium Level 143 mmol/L (136-145) Potassium Level 3.6 mmol/L (3.5-5.1) Chloride Level 109 mmol/L (98-107) Carbon Dioxide Level 26 mmol/L (21-32) Anion Gap 8 (6-14) Blood Urea Nitrogen 29 mg/dL (8-26) Creatinine 1.9 mg/dL (0.7-1.3) Estimated GFR (Cockcroft-Gault) 45.4 Glucose Level 97 mg/dL (70-99) Calcium Level 8.7 mg/dL (8.5-10.1) Phosphorus Level 3.3 mg/dL (2.6-4.7) Troponin I Quantitative 0.269 ng/mL (0.000-0.055) Albumin 2.5 g/dL (3.4-5.0) Laboratory Tests Test 12/22/18 10:50 12/23/18 06:40 O2 Saturation 99 % (92-99) Arterial Blood pH 7.37 (7.35-7.45) Arterial Blood pCO2 at Patient Temp 38 mmHg (35-46) Arterial Blood pO2 at Patient Temp 146 mmHg (75-108) Arterial Blood HCO3 22 mmol/L (21-28) Arterial Blood Base Excess -3 mmol/L (-3-3) FiO2 40 Sodium Level 143 mmol/L (136-145) Potassium Level 3.6 mmol/L (3.5-5.1) Chloride Level 109 mmol/L (98-107) Carbon Dioxide Level 26 mmol/L (21-32) Anion Gap 8 (6-14) Blood Urea Nitrogen 29 mg/dL (8-26) Creatinine 1.9 mg/dL (0.7-1.3) Estimated GFR (Cockcroft-Gault) 45.4 Glucose Level 97 mg/dL (70-99) Calcium Level 8.7 mg/dL (8.5-10.1) Phosphorus Level 3.3 mg/dL (2.6-4.7) Troponin I Quantitative 0.269 ng/mL (0.000-0.055) Albumin 2.5 g/dL (3.4-5.0) Microbiology 12/21/18 Blood Culture - Preliminary, Resulted NO GROWTH AFTER 1 DAY Medications Current Medications Ipratropium [place] (Atrovent) 0.5 mg 1X ONCE NEB Last administered on at 08:48; Start 12/21/18 at 07:00; Stop 12/21/18 at 07:03; Status DC Methylprednisolone Sodium Succinate (SOLU-Medrol 125MG VIAL) 125 mg 1X ONCE IV Last administered on 12/21/18at 08:05; Start 12/21/18 at 07:00; Stop 12/21/18 at 07:03; Status DC Albuterol Sulfate (Ventolin Neb Soln) 10 mg 1X ONCE CONT NEB Last administered on 12/21/18at 08:45; Start 12/21/18 at 07:00; Stop 12/21/18 at 07:03; Status DC Magnesium Sulfate 50 ml @ 25 mls/hr 1X ONCE IV Last administered on 12/21/18at 07:56; Start 12/21/18 at 07:00; Stop 12/21/18 at 08:59; Status DC Propofol 50 ml @ As Directed STK-MED ONCE IV ; Start 12/21/18 at 07:21; Stop 12/21 at 07:23; Status DC Sodium Chloride 1,000 ml @ 1,000 mls/hr 1X ONCE IV Last administered on at 07:00; Start 12/21/18 at 07:30; Stop 12/21/18 at 08:29; Status DC Propofol 100 ml @ 0 mls/hr CONT PRN IV SEE PROTOCOL Last administered on at 07:29; Start 12/21/18 at 07:30; Stop 12/21/18 at 11:56; Status DC Sodium Bicarbonate 150 meq/Sterile Water 1,150 ml @ 125 mls/hr 1X ONCE IV Last administered on 12/21/18at 07:57; Start 12/21/18 at 07:45; Stop 12/21/18 at 16: 56; Status DC Etomidate (Amidate) 20 mg STK-MED ONCE IV ; Start 12/21/18 at 08:20; Stop at 08:22; Status DC Vecuronium [place] (Norcuron Bolus) 10 mg STK-MED ONCE IV ; Start 12/21/18 at 08: 20; Stop 12/21/18 at 08:23; Status DC Midazolam HCl (Versed) 5 mg STK-MED ONCE .ROUTE ; Start 12/21/18 at 08:21; Stop 12/21/18 at 08:23; Status DC Etomidate (Amidate) 25 mg 1X ONCE IV Last administered on 12/21/18at 07:21; Start 12/21/18 at 07:21; Stop 12/21/18 at 08:39; Status DC Vecuronium [place] (Norcuron Bolus) 10 mg 1X ONCE IV Last administered on at 07:22; Start 12/21/18 at 07:22; Stop 12/21/18 at 08:39; Status DC Midazolam HCl (Versed) 5 mg 1X ONCE IV Last administered on 12/21/18at 07:24; Start 12/21/18 at 07:24; Stop 12/21/18 at 08:39; Status DC Vecuronium [place] (Norcuron Bolus) 10 mg 1X ONCE IV Last administered on at 07:25; Start 12/21/18 at 07:25; Stop 12/21/18 at 08:39; Status DC Furosemide (Lasix) 80 mg 1X ONCE IVP Last administered on 12/21/18at 08:44; Start 12/21/18 at 08:45; Stop 12/21/18 at 08:46; Status DC Metoprolol Tartrate (Lopressor Vial) 5 mg 1X ONCE IVP ; Start 12/21/18 at 08:45 ; Stop 12/21/18 at 08:46; Status DC Midazolam HCl (Versed) 5 mg 1X ONCE IV Last administered on 12/21/18at 08:41; Start 12/21/18 at 08:45; Stop 12/21/18 at 08:46; Status DC Furosemide (Lasix) 100 mg STK-MED ONCE .ROUTE ; Start 12/21/18 at 08:36; Stop 12/21/18 at 08:39; Status DC Midazolam HCl (Versed) 5 mg 1X ONCE NS Last administered on 12/21/18at 09:48; Start 12/21/18 at 09:45; Stop 12/21/18 at 09:48; Status DC Propofol 50 ml @ As Directed STK-MED ONCE IV ; Start 12/21/18 at 09:55; Stop 12/21 at 09:57; Status DC Midazolam HCl (Versed) 5 mg 1X ONCE NS Last administered on 12/21/18at 10:45; Start 12/21/18 at 11:30; Stop 12/21/18 at 11:31; Status DC Famotidine (Pepcid Vial) 20 mg BID IVP Last administered on 12/21/18at 13:50; Start 12/21/18 at 14:00; Stop 12/21/18 at 14:26; Status DC Enoxaparin Sodium (Lovenox Per Pharmacy Prophylaxis Dosing) 1 each PRN DAILY PRN MC SEE COMMENTS; Start 12/21/18 at 11:45; Stop 12/21/18 at 14:27; Status DC Propofol 100 ml @ 0 mls/hr CONT PRN IV SEE I/O RECORD Last administered on at 05:50; Start 12/21/18 at 11:45 Enoxaparin Sodium (Lovenox 40mg Syringe) 40 mg Q24H SQ Last administered on 12/22 14:43; Start 12/21/18 at 14:00 Famotidine (Pepcid Vial) 20 mg DAILY IVP Last administered on 12/22/18 09:15; Start 12/22/18 at 09:00 Amlodipine Besylate (Norvasc) 10 mg BID PO Last administered on 12/23/18at 09:10 ; Start 12/21/18 at 21:00 Aspirin (Children'S Aspirin) 81 mg DAILY PO Last administered on 12/23/18 09: 09; Start 12/22/18 at 09:00 Atorvastatin Calcium (Lipitor) 20 mg QHS PO Last administered on 12/22/18 20:14 ; Start 12/21/18 at 21:00 Carvedilol (Coreg) 25 mg BIDWMEALS PO Last administered on 12/23/18at 09:08; Start 12/21/18 at 17:00 Clopidogrel Bisulfate (Plavix) 75 mg DAILYWBKFT PO Last administered on at 09:13; Start 12/22/18 at 08:00 Fluticasone Propionate (Flonase) 2 spray DAILY NS Last administered on 09:13; Start 12/22/18 at 09:00 Furosemide (Lasix) 40 mg DAILY PO ; Start 12/22/18 at 09:00; Status Cancel Isosorbide Mononitrate (Imdur) 60 mg DAILY PO Last administered on 12/23/18 09 :07; Start 12/22/18 at 09:00 Non-Formulary Medication (Albuterol Sulfate (Ventolin Hfa Inhaler)) 2 puff Q4HRS INH ; Start 12/21/18 at 20:00; Status UNV Non-Formulary Medication (Fluticasone/ Vilanterol (Breo Ellipta 200-25 Mcg INH) ) 1 puff DAILY IH ; Start 12/22/18 at 09:00; Status UNV Hydralazine HCl (Apresoline) 100 mg TID PO Last administered on 12/23/18 09:09 ; Start 12/21/18 at 21:00 Non-Formulary Medication ([Pantoprazole] ) 40 mg BIDAC PO ; Start 12/22/18 at 07: 30; Status UNV Budesonide (Pulmicort) 0.5 mg RTBID NEB Last administered on 12/23/18 08:20; Start 12/21/18 at 20:00 Albuterol Sulfate (Ventolin Neb Soln) 2.5 mg RTQID NEB Last administered on 08:20; Start 12/21/18 at 20:00 Furosemide (Lasix) 40 mg DAILY IVP Last administered on 12/23/18 09:10; Start 12/21/18 at 17:00 Throat Lozenges (Cepacol Sore Throat Lozenge) 1 rashi PRN Q2HRS PRN PO SORE THROAT; Start 12/22/18 at 13:00 Acetaminophen (Tylenol) 500 mg PRN Q6HRS PRN PO MILD PAIN / TEMP Last administered on 12/22/18at 23:46; Start 12/22/18 at 23:45 Nitroglycerin (Nitrostat) 0.4 mg STK-MED ONCE SL ; Start 12/23/18 at 05:40; Stop 12/23/18 at 05:42; Status DC Nitroglycerin (Nitrostat) 0.4 mg PRN Q5MIN PRN SL CHEST PAIN; Start 12/23/18 at 05:45 Active Scripts Active [Pantoprazole] 40 MG Tablet.dr 40 Mg PO BIDAC Ventolin Hfa Inhaler (Albuterol Sulfate) 18 Gm Hfa.aer.ad 2 Puff INH Q4HRS 20 Days Furosemide 40 Mg Tablet 40 Mg PO DAILY 30 Days Carvedilol (Carvedilol) 12.5 Mg Tablet 25 Mg PO BIDWMEALS 30 Days Isosorbide Mononitrate Er (Isosorbide Mononitrate) 30 Mg Tab.er.24h 60 Mg PO DAILY 30 Days Hydralazine Hcl 50 Mg Tablet 100 Mg PO TID 30 Days Lipitor (Atorvastatin Calcium) 20 Mg Tablet 1 Tab PO DAILY Fluticasone Propionate Nasal [place] (Fluticasone Propionate) 1 [place] Dougherty 2 Dougherty NS DAILY Reported Amlodipine Besylate 10 Mg Tablet 10 Mg PO BID Aspirin 81 Mg Tab.chew 1 Tab PO DAILY Vitals/I & O Vital Sign - Last 24 Hours 12/22/18 12/22/18 12/22/18 12/22/18 11:00 11:10 11:15 12:00 Temp 98.8 98.8 Pulse 90 84 Resp 26 24 B/P (MAP) 114/85 (95) 132/93 (106) Pulse Ox 100 100 O2 Delivery C-pap trial Nasal Cannula Nasal Cannula O2 Flow Rate 4.0 4.0 12/22/18 12/22/18 12/22/18 12/22/18 12:00 13:00 14:00 14:55 Pulse 88 88 91 Resp 20 20 B/P (MAP) 127/87 (100) 119/76 (90) 119/76 Pulse Ox 96 96 O2 Delivery Nasal Cannula Nasal Cannula Nasal Cannula O2 Flow Rate 4.0 4.0 12/22/18 12/22/18 12/22/18 12/22/18 15:00 15:31 16:00 16:00 Temp 98.1 98.1 Pulse 92 86 Resp 18 18 B/P (MAP) 117/77 (90) 129/84 (99) Pulse Ox 96 98 96 O2 Delivery Nasal Cannula Nasal Cannula Nasal Cannula Nasal Cannula O2 Flow Rate 2.0 4.0 12/22/18 12/22/18 12/22/18 12/22/18 17:00 18:00 18:27 19:00 Temp 97.6 97.6 Pulse 90 92 92 98 Resp 18 24 32 B/P (MAP) 141/77 (98) 155/89 (111) 155/89 118/90 (99) Pulse Ox 96 96 98 O2 Delivery Nasal Cannula Nasal Cannula Nasal Cannula O2 Flow Rate 2.0 12/22/18 12/22/18 12/22/18 12/22/18 19:37 19:40 20:00 20:14 Pulse 86 85 Resp 30 B/P (MAP) 135/88 (104) 135/88 Pulse Ox 98 99 O2 Delivery Nasal Cannula Nasal Cannula Nasal Cannula O2 Flow Rate 2.0 2.0 2.0 12/22/18 12/22/18 12/22/18 12/22/18 20:14 21:05 22:00 22:33 Pulse 85 89 96 90 Resp 34 28 30 B/P (MAP) 135/88 131/79 (96) 123/80 (94) 140/56 (84) Pulse Ox 99 99 98 O2 Delivery Nasal Cannula Nasal Cannula Nasal Cannula O2 Flow Rate 2.0 2.0 2.0 12/22/18 12/22/18 12/23/18 12/23/18 23:47 23:52 00:00 01:00 Temp 97.4 97.4 Pulse 88 88 88 Resp 28 26 B/P (MAP) 128/74 (92) 136/79 (98) 132/74 (93) Pulse Ox 98 97 98 O2 Delivery Nasal Cannula Nasal Cannula Nasal Cannula Nasal Cannula O2 Flow Rate 2.0 2.0 2.0 2.0 12/23/18 12/23/18 12/23/18 12/23/18 02:00 03:00 03:31 04:00 Temp 98.0 98.0 Pulse 90 88 89 Resp 28 28 B/P (MAP) 135/79 (97) 128/79 (95) 140/89 (106) Pulse Ox 97 98 98 O2 Delivery Nasal Cannula Nasal Cannula Nasal Cannula Nasal Cannula O2 Flow Rate 2.0 2.0 2.0 2.0 12/23/18 12/23/18 12/23/18 12/23/18 05:07 05:44 06:00 08:00 Pulse 86 81 94 Resp 26 B/P (MAP) 140/90 (107) 143/95 (111) 145/95 (112) Pulse Ox 94 99 O2 Delivery Nasal Cannula Nasal Cannula Nasal Cannula O2 Flow Rate 2.0 2.0 2.0 12/23/18 12/23/18 12/23/18 12/23/18 08:23 09:07 09:08 09:09 Pulse 94 83 B/P (MAP) 146/99 146/99 146/99 Pulse Ox 98 O2 Delivery Nasal Cannula O2 Flow Rate 2.0 12/23/18 09:10 Pulse 89 B/P (MAP) 146/99 Intake and Output 12/22/18 12/22/18 12/23/18 15:01 23:01 07:01 Intake Total 175 ml 1725 ml 150 ml Output Total 1180 ml 2350 ml 0 ml Balance -1005 ml -625 ml 150 ml SAIMA BEE MD Dec 23, 2018 10:30
--- NOTE | 2018-12-23 11:18 | PDOC ---
PULMONARY PROGRESS NOTES Subjective extubated 01/01 doing well Vitals Vital Signs Date Time Temp Pulse Resp B/P (MAP) Pulse Ox O2 Delivery O2 Flow Rate FiO2 12/23/18 09:10 89 146/99 12/23/18 08:23 98 Nasal Cannula 2.0 12/23/18 06:00 26 12/23/18 04:00 98.0 98.0 General: Alert, No acute distress Lungs: Clear Cardiovascular: S1 Abdomen: Soft Neuro Exam: Alert Extremities: No Edema Skin: Warm Labs Laboratory Tests Test 12/21/18 11:40 12/21/18 12:10 12/22/18 05:45 12/22/18 08:00 O2 Saturation 99 % (92-99) 99 % (92-99) Arterial Blood pH 7.38 (7.35-7.45) 7.45 (7.35-7.45) Arterial Blood pCO2 at Patient Temp 36 mmHg (35-46) 34 mmHg (35-46) Arterial Blood pO2 at Patient Temp 185 mmHg (75-108) 217 mmHg (75-108) Arterial Blood HCO3 21 mmol/L (21-28) 23 mmol/L (21-28) Arterial Blood Base Excess -4 mmol/L (-3-3) -1 mmol/L (-3-3) FiO2 70 50 Lactic Acid Level 1.2 mmol/L (0.4-2.0) White Blood Count 8.4 x10^3/uL (4.0-11.0) Red Blood Count 4.28 x10^6/uL (4.30-5.70) Hemoglobin 8.3 g/dL (13.0-17.5) Hematocrit 27.0 % (39.0-53.0) Mean Corpuscular Volume 63 fL (79-100) Mean Corpuscular Hemoglobin 19 pg (25-35) Mean Corpuscular Hemoglobin Concent 31 g/dL (31-37) Red Cell Distribution Width 23.4 % (11.5-14.5) Platelet Count 263 x10^3/uL (140-400) Neutrophils (%) (Auto) 67 % (31-73) Lymphocytes (%) (Auto) 25 % (24-48) Monocytes (%) (Auto) 9 % (0-9) Eosinophils (%) (Auto) 0 % (0-3) Basophils (%) (Auto) 0 % (0-3) Neutrophils # (Auto) 5.6 x10^3uL (1.8-7.7) Lymphocytes # (Auto) 2.1 x10^3/uL (1.0-4.8) Monocytes # (Auto) 0.7 x10^3/uL (0.0-1.1) Eosinophils # (Auto) 0.0 x10^3/uL (0.0-0.7) Basophils # (Auto) 0.0 x10^3/uL (0.0-0.2) Sodium Level 141 mmol/L (136-145) Potassium Level 4.0 mmol/L (3.5-5.1) Chloride Level 107 mmol/L (98-107) Carbon Dioxide Level 24 mmol/L (21-32) Anion Gap 10 (6-14) Blood Urea Nitrogen 36 mg/dL (8-26) Creatinine 2.6 mg/dL (0.7-1.3) Estimated GFR (Cockcroft-Gault) 31.6 Glucose Level 120 mg/dL (70-99) Calcium Level 8.9 mg/dL (8.5-10.1) Test 12/22/18 10:50 12/23/18 06:40 O2 Saturation 99 % (92-99) Arterial Blood pH 7.37 (7.35-7.45) Arterial Blood pCO2 at Patient Temp 38 mmHg (35-46) Arterial Blood pO2 at Patient Temp 146 mmHg (75-108) Arterial Blood HCO3 22 mmol/L (21-28) Arterial Blood Base Excess -3 mmol/L (-3-3) FiO2 40 Sodium Level 143 mmol/L (136-145) Potassium Level 3.6 mmol/L (3.5-5.1) Chloride Level 109 mmol/L (98-107) Carbon Dioxide Level 26 mmol/L (21-32) Anion Gap 8 (6-14) Blood Urea Nitrogen 29 mg/dL (8-26) Creatinine 1.9 mg/dL (0.7-1.3) Estimated GFR (Cockcroft-Gault) 45.4 Glucose Level 97 mg/dL (70-99) Calcium Level 8.7 mg/dL (8.5-10.1) Phosphorus Level 3.3 mg/dL (2.6-4.7) Troponin I Quantitative 0.269 ng/mL (0.000-0.055) Albumin 2.5 g/dL (3.4-5.0) Laboratory Tests Test 12/23/18 06:40 Sodium Level 143 mmol/L (136-145) Potassium Level 3.6 mmol/L (3.5-5.1) Chloride Level 109 mmol/L (98-107) Carbon Dioxide Level 26 mmol/L (21-32) Anion Gap 8 (6-14) Blood Urea Nitrogen 29 mg/dL (8-26) Creatinine 1.9 mg/dL (0.7-1.3) Estimated GFR (Cockcroft-Gault) 45.4 Glucose Level 97 mg/dL (70-99) Calcium Level 8.7 mg/dL (8.5-10.1) Phosphorus Level 3.3 mg/dL (2.6-4.7) Troponin I Quantitative 0.269 ng/mL (0.000-0.055) Albumin 2.5 g/dL (3.4-5.0) Medications Active Scripts Medications Dose Route/Sig Max Daily Dose Days Date Category [Pantoprazole] 40 MG Tablet.dr 40 Mg PO BIDAC 09/18/18 Rx Amlodipine Besylate 10 Mg Tablet 10 Mg PO BID 09/15/18 Reported Aspirin 81 Mg Tab.chew 1 Tab PO DAILY 09/15/18 Reported Ventolin Hfa Inhaler (Albuterol Sulfate) 18 Gm Hfa.aer.ad 2 Puff INH Q4HRS 20 08/07/18 Rx Breo Ellipta 200-25 Mcg INH (Fluticasone/Vilanterol) 1 Each Blst.w.dev 1 Puff IH DAILY 07/13/18 Rx Furosemide 40 Mg Tablet 40 Mg PO DAILY 07/13/18 Rx Carvedilol 12.5 Mg Tablet 25 Mg PO BIDWMEALS 30 07/13/18 Rx Isosorbide Mononitrate Er (Isosorbide Mononitrate) 30 Mg Tab.er.24h 60 Mg PO DAILY 07/13/18 Rx Hydralazine Hcl 50 Mg Tablet 100 Mg PO TID 07/13/18 Rx Clopidogrel (Clopidogrel Bisulfate) 75 Mg Tablet 75 Mg PO DAILYWBKFT 07/13/18 Rx Lipitor (Atorvastatin Calcium) 20 Mg Tablet 1 Tab PO DAILY 07/04/15 Rx Fluticasone Propionate Nasal [place] (Fluticasone Propionate) 1 [place] Rudolph 2 [place] NS DAILY 07/04/15 Rx Comments CXR 12/23 RESOLVING CHF Impression . 1. Acute hypoxic and hypercapnic respiratory failure secondary to [id number] systolic and diastolic heart failure. extubated 12/22 2. The patient with known cardiomyopathy with an EF of 40%-45% and also grade 4 diastolic dysfunction, now comes in with hypertensive urgency and likely triggering congestive heart failure. Repeat echo with EF 35%, Moderate MR 3. 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 4. History of coronary artery disease, status post stents. 5. Underlying chronic obstructive pulmonary disease. 6. Abnormal chest x-ray, likely consistent with congestive heart failure. 7. substance abuse. UDS + for Cocaine Plan . 1. On RA 2. CXR improving CHF 3. Follow renal function. 4. Lactic acidosis, likely related to increase w/o breathing rather than sepsis. 5. Follow Cardiology's recommendations. 7. Monitor blood pressure closely and follow Cardiology's recommendation. 8. DVT and stress ulcer prophylaxis. 9. Needs to quit cocaine 10. Discussed with RN, RT RILEY BURR MD Dec 23, 2018 11:18
--- NOTE | 2018-12-23 13:11 | PDOC ---
PROGRESS NOTES Subjective Subjective Patient seen and examined Extubated. Looks and feels better. Objective Objective Vital Signs Date Time Temp Pulse Resp B/P (MAP) Pulse Ox O2 Delivery O2 Flow Rate FiO2 12/23/18 12:00 97.5 88 22 99/67 (78) 98 Room Air 97.5 12/23/18 08:23 2.0 Intake and Output 12/23/18 07:01 Intake Total 2050 ml Output Total 3530 ml Balance -1480 ml Intake Oral 1025 ml IV Total 75 ml Tube Feeding 950 ml Output Urine Total 3530 ml # Voids 1 # Bowel Movements 1 Physical Exam Abdomen: Normal bowel sounds Heart: Regular rate General: mild distress Lungs: Other (slightly decreased breath sounds) Assessment Assessment Problems Medical Problems: (1) Acute hypercapnic respiratory failure Status: Acute (2) CHF (congestive heart failure) Status: Acute (3) Respiratory acidosis Status: Acute 1. Acute on chronic respiratory failure secondary to a/c HF; patient has been extubated. He looks and feels well. Followed by the pulmonary service. 2. 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 Continuing medical treatment and increasing activity. 3. NSTEMI: h/o chronic troponin elevation; Initial troponin 0.299. Demand mediated with multiple culprits as noted above. Continue medical treatment. 4. Leukocytosis, lactic acidosis 5. CAD: PCI/stent 06/2017 and cath at 12/2017 with patent diagonal stent with mild disease to LAD. 6. COPD with severe pulmonary HTN with continued tobaccoism 7. HTN; controlled 8. Hyperlipidemia; statin 9. Valvular insufficiency 10. 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 11. CKD; CR stable per review 12. Hx of recent PUD/GI bleed 13. Substance abuse; UDS + cocaine Comment Review of Relevant I have reviewed the following items coleman (where applicable) has been applied. Labs Laboratory Tests Test 12/22/18 05:45 12/22/18 08:00 12/22/18 10:50 12/23/18 06:40 White Blood Count 8.4 x10^3/uL (4.0-11.0) Red Blood Count 4.28 x10^6/uL (4.30-5.70) Hemoglobin 8.3 g/dL (13.0-17.5) Hematocrit 27.0 % (39.0-53.0) Mean Corpuscular Volume 63 fL (79-100) Mean Corpuscular Hemoglobin 19 pg (25-35) Mean Corpuscular Hemoglobin Concent 31 g/dL (31-37) Red Cell Distribution Width 23.4 % (11.5-14.5) Platelet Count 263 x10^3/uL (140-400) Neutrophils (%) (Auto) 67 % (31-73) Lymphocytes (%) (Auto) 25 % (24-48) Monocytes (%) (Auto) 9 % (0-9) Eosinophils (%) (Auto) 0 % (0-3) Basophils (%) (Auto) 0 % (0-3) Neutrophils # (Auto) 5.6 x10^3uL (1.8-7.7) Lymphocytes # (Auto) 2.1 x10^3/uL (1.0-4.8) Monocytes # (Auto) 0.7 x10^3/uL (0.0-1.1) Eosinophils # (Auto) 0.0 x10^3/uL (0.0-0.7) Basophils # (Auto) 0.0 x10^3/uL (0.0-0.2) Sodium Level 141 mmol/L (136-145) 143 mmol/L (136-145) Potassium Level 4.0 mmol/L (3.5-5.1) 3.6 mmol/L (3.5-5.1) Chloride Level 107 mmol/L (98-107) 109 mmol/L (98-107) Carbon Dioxide Level 24 mmol/L (21-32) 26 mmol/L (21-32) Anion Gap 10 (6-14) 8 (6-14) Blood Urea Nitrogen 36 mg/dL (8-26) 29 mg/dL (8-26) Creatinine 2.6 mg/dL (0.7-1.3) 1.9 mg/dL (0.7-1.3) Estimated GFR (Cockcroft-Gault) 31.6 45.4 Glucose Level 120 mg/dL (70-99) 97 mg/dL (70-99) Calcium Level 8.9 mg/dL (8.5-10.1) 8.7 mg/dL (8.5-10.1) O2 Saturation 99 % (92-99) 99 % (92-99) Arterial Blood pH 7.45 (7.35-7.45) 7.37 (7.35-7.45) Arterial Blood pCO2 at Patient Temp 34 mmHg (35-46) 38 mmHg (35-46) Arterial Blood pO2 at Patient Temp 217 mmHg (75-108) 146 mmHg (75-108) Arterial Blood HCO3 23 mmol/L (21-28) 22 mmol/L (21-28) Arterial Blood Base Excess -1 mmol/L (-3-3) -3 mmol/L (-3-3) FiO2 50 40 Phosphorus Level 3.3 mg/dL (2.6-4.7) Troponin I Quantitative 0.269 ng/mL (0.000-0.055) Albumin 2.5 g/dL (3.4-5.0) Laboratory Tests Test 12/23/18 06:40 Sodium Level 143 mmol/L (136-145) Potassium Level 3.6 mmol/L (3.5-5.1) Chloride Level 109 mmol/L (98-107) Carbon Dioxide Level 26 mmol/L (21-32) Anion Gap 8 (6-14) Blood Urea Nitrogen 29 mg/dL (8-26) Creatinine 1.9 mg/dL (0.7-1.3) Estimated GFR (Cockcroft-Gault) 45.4 Glucose Level 97 mg/dL (70-99) Calcium Level 8.7 mg/dL (8.5-10.1) Phosphorus Level 3.3 mg/dL (2.6-4.7) Troponin I Quantitative 0.269 ng/mL (0.000-0.055) Albumin 2.5 g/dL (3.4-5.0) Microbiology 12/21/18 Blood Culture - Preliminary, Resulted NO GROWTH AFTER 2 DAYS Medications Current Medications Ipratropium Minerva (Atrovent) 0.5 mg 1X ONCE NEB Last administered on at 08:48; Start 12/21/18 at 07:00; Stop 12/21/18 at 07:03; Status DC Methylprednisolone Sodium Succinate (SOLU-Medrol 125MG VIAL) 125 mg 1X ONCE IV Last administered on 12/21/18at 08:05; Start 12/21/18 at 07:00; Stop 12/21/18 at 07:03; Status DC Albuterol Sulfate (Ventolin Neb Soln) 10 mg 1X ONCE CONT NEB Last administered on 12/21/18at 08:45; Start 12/21/18 at 07:00; Stop 12/21/18 at 07:03; Status DC Magnesium Sulfate 50 ml @ 25 mls/hr 1X ONCE IV Last administered on 12/21/18at 07:56; Start 12/21/18 at 07:00; Stop 12/21/18 at 08:59; Status DC Propofol 50 ml @ As Directed STK-MED ONCE IV ; Start 12/21/18 at 07:21; Stop 12/21 at 07:23; Status DC Sodium Chloride 1,000 ml @ 1,000 mls/hr 1X ONCE IV Last administered on at 07:00; Start 12/21/18 at 07:30; Stop 12/21/18 at 08:29; Status DC Propofol 100 ml @ 0 mls/hr CONT PRN IV SEE PROTOCOL Last administered on at 07:29; Start 12/21/18 at 07:30; Stop 12/21/18 at 11:56; Status DC Sodium Bicarbonate 150 meq/Sterile Water 1,150 ml @ 125 mls/hr 1X ONCE IV Last administered on 12/21/18at 07:57; Start 12/21/18 at 07:45; Stop 12/21/18 at 16: 56; Status DC Etomidate (Amidate) 20 mg STK-MED ONCE IV ; Start 12/21/18 at 08:20; Stop at 08:22; Status DC Vecuronium Minerva (Norcuron Bolus) 10 mg STK-MED ONCE IV ; Start 12/21/18 at 08: 20; Stop 12/21/18 at 08:23; Status DC Midazolam HCl (Versed) 5 mg STK-MED ONCE .ROUTE ; Start 12/21/18 at 08:21; Stop 12/21/18 at 08:23; Status DC Etomidate (Amidate) 25 mg 1X ONCE IV Last administered on 12/21/18at 07:21; Start 12/21/18 at 07:21; Stop 12/21/18 at 08:39; Status DC Vecuronium Minerva (Norcuron Bolus) 10 mg 1X ONCE IV Last administered on at 07:22; Start 12/21/18 at 07:22; Stop 12/21/18 at 08:39; Status DC Midazolam HCl (Versed) 5 mg 1X ONCE IV Last administered on 12/21/18at 07:24; Start 12/21/18 at 07:24; Stop 12/21/18 at 08:39; Status DC Vecuronium Minerva (Norcuron Bolus) 10 mg 1X ONCE IV Last administered on at 07:25; Start 12/21/18 at 07:25; Stop 12/21/18 at 08:39; Status DC Furosemide (Lasix) 80 mg 1X ONCE IVP Last administered on 12/21/18at 08:44; Start 12/21/18 at 08:45; Stop 12/21/18 at 08:46; Status DC Metoprolol Tartrate (Lopressor Vial) 5 mg 1X ONCE IVP ; Start 12/21/18 at 08:45 ; Stop 12/21/18 at 08:46; Status DC Midazolam HCl (Versed) 5 mg 1X ONCE IV Last administered on 12/21/18at 08:41; Start 12/21/18 at 08:45; Stop 12/21/18 at 08:46; Status DC Furosemide (Lasix) 100 mg STK-MED ONCE .ROUTE ; Start 12/21/18 at 08:36; Stop 12/21/18 at 08:39; Status DC Midazolam HCl (Versed) 5 mg 1X ONCE NS Last administered on 12/21/18at 09:48; Start 12/21/18 at 09:45; Stop 12/21/18 at 09:48; Status DC Propofol 50 ml @ As Directed STK-MED ONCE IV ; Start 12/21/18 at 09:55; Stop 12/21 at 09:57; Status DC Midazolam HCl (Versed) 5 mg 1X ONCE NS Last administered on 12/21/18at 10:45; Start 12/21/18 at 11:30; Stop 12/21/18 at 11:31; Status DC Famotidine (Pepcid Vial) 20 mg BID IVP Last administered on 12/21/18at 13:50; Start 12/21/18 at 14:00; Stop 12/21/18 at 14:26; Status DC Enoxaparin Sodium (Lovenox Per Pharmacy Prophylaxis Dosing) 1 each PRN DAILY PRN MC SEE COMMENTS; Start 12/21/18 at 11:45; Stop 12/21/18 at 14:27; Status DC Propofol 100 ml @ 0 mls/hr CONT PRN IV SEE I/O RECORD Last administered on at 05:50; Start 12/21/18 at 11:45 Enoxaparin Sodium (Lovenox 40mg Syringe) 40 mg Q24H SQ Last administered on 12/22 14:43; Start 12/21/18 at 14:00 Famotidine (Pepcid Vial) 20 mg DAILY IVP Last administered on 12/22/18 09:15; Start 12/22/18 at 09:00 Amlodipine Besylate (Norvasc) 10 mg BID PO Last administered on 12/23/18 09:10 ; Start 12/21/18 at 21:00 Aspirin (Children'S Aspirin) 81 mg DAILY PO Last administered on 12/23/18 09: 09; Start 12/22/18 at 09:00 Atorvastatin Calcium (Lipitor) 20 mg QHS PO Last administered on 12/22/18 20:14 ; Start 12/21/18 at 21:00 Carvedilol (Coreg) 25 mg BIDWMEALS PO Last administered on 12/23/18 09:08; Start 12/21/18 at 17:00 Clopidogrel Bisulfate (Plavix) 75 mg DAILYWBKFT PO Last administered on 09:13; Start 12/22/18 at 08:00 Fluticasone Propionate (Flonase) 2 spray DAILY NS Last administered on 09:13; Start 12/22/18 at 09:00 Furosemide (Lasix) 40 mg DAILY PO ; Start 12/22/18 at 09:00; Status Cancel Isosorbide Mononitrate (Imdur) 60 mg DAILY PO Last administered on 12/23/18 09 :07; Start 12/22/18 at 09:00 Non-Formulary Medication (Albuterol Sulfate (Ventolin Hfa Inhaler)) 2 puff Q4HRS INH ; Start 12/21/18 at 20:00; Status UNV Non-Formulary Medication (Fluticasone/ Vilanterol (Breo Ellipta 200-25 Mcg INH) ) 1 puff DAILY IH ; Start 12/22/18 at 09:00; Status UNV Hydralazine HCl (Apresoline) 100 mg TID PO Last administered on 12/23/18at 09:09 ; Start 12/21/18 at 21:00 Non-Formulary Medication ([Pantoprazole] ) 40 mg BIDAC PO ; Start 12/22/18 at 07: 30; Status UNV Budesonide (Pulmicort) 0.5 mg RTBID NEB Last administered on 12/23/18at 08:20; Start 12/21/18 at 20:00 Albuterol Sulfate (Ventolin Neb Soln) 2.5 mg RTQID NEB Last administered on 08/31at 11:49; Start 12/21/18 at 20:00 Furosemide (Lasix) 40 mg DAILY IVP Last administered on 12/23/18at 09:10; Start 12/21/18 at 17:00 Throat Lozenges (Cepacol Sore Throat Lozenge) 1 rsahi PRN Q2HRS PRN PO SORE THROAT; Start 12/22/18 at 13:00 Acetaminophen (Tylenol) 500 mg PRN Q6HRS PRN PO MILD PAIN / TEMP Last administered on 12/22/18at 23:46; Start 12/22/18 at 23:45 Nitroglycerin (Nitrostat) 0.4 mg STK-MED ONCE SL ; Start 12/23/18 at 05:40; Stop 12/23/18 at 05:42; Status DC Nitroglycerin (Nitrostat) 0.4 mg PRN Q5MIN PRN SL CHEST PAIN; Start 12/23/18 at 05:45 Active Scripts Active [Pantoprazole] 40 MG Tablet.dr 40 Mg PO BIDAC Ventolin Hfa Inhaler (Albuterol Sulfate) 18 Gm Hfa.aer.ad 2 Puff INH Q4HRS 20 Days Furosemide 40 Mg Tablet 40 Mg PO DAILY 30 Days Carvedilol (Carvedilol) 12.5 Mg Tablet 25 Mg PO BIDWMEALS 30 Days Isosorbide Mononitrate Er (Isosorbide Mononitrate) 30 Mg Tab.er.24h 60 Mg PO DAILY 30 Days Hydralazine Hcl 50 Mg Tablet 100 Mg PO TID 30 Days Lipitor (Atorvastatin Calcium) 20 Mg Tablet 1 Tab PO DAILY Fluticasone Propionate Nasal [place] (Fluticasone Propionate) 1 [place] Lawn 2 [place] NS DAILY Reported Amlodipine Besylate 10 Mg Tablet 10 Mg PO BID Aspirin 81 Mg Tab.chew 1 Tab PO DAILY Vitals/I & O Vital Sign - Last 24 Hours 12/22/18 12/22/18 12/22/18 12/22/18 14:00 14:55 15:00 15:31 Pulse 88 91 92 Resp 20 18 B/P (MAP) 119/76 (90) 119/76 117/77 (90) Pulse Ox 96 96 98 O2 Delivery Nasal Cannula Nasal Cannula Nasal Cannula O2 Flow Rate 2.0 12/22/18 12/22/18 12/22/18 12/22/18 16:00 16:00 17:00 18:00 Temp 98.1 98.1 Pulse 86 90 92 Resp 18 18 24 B/P (MAP) 129/84 (99) 141/77 (98) 155/89 (111) Pulse Ox 96 96 96 O2 Delivery Nasal Cannula Nasal Cannula Nasal Cannula Nasal Cannula O2 Flow Rate 4.0 12/22/18 12/22/18 12/22/18 12/22/18 18:27 19:00 19:37 19:40 Temp 97.6 97.6 Pulse 92 98 Resp 32 B/P (MAP) 155/89 118/90 (99) Pulse Ox 98 98 O2 Delivery Nasal Cannula Nasal Cannula Nasal Cannula O2 Flow Rate 2.0 2.0 2.0 12/22/18 12/22/18 12/22/18 12/22/18 20:00 20:14 20:14 21:05 Pulse 86 85 85 89 Resp 30 34 B/P (MAP) 135/88 (104) 135/88 135/88 131/79 (96) Pulse Ox 99 99 O2 Delivery Nasal Cannula Nasal Cannula O2 Flow Rate 2.0 2.0 12/22/18 12/22/18 12/22/18 12/22/18 22:00 22:33 23:47 23:52 Temp 97.4 97.4 Pulse 96 90 88 Resp 28 30 28 B/P (MAP) 123/80 (94) 140/56 (84) 128/74 (92) Pulse Ox 99 98 98 O2 Delivery Nasal Cannula Nasal Cannula Nasal Cannula Nasal Cannula O2 Flow Rate 2.0 2.0 2.0 2.0 12/23/18 12/23/18 12/23/18 12/23/18 00:00 01:00 02:00 03:00 Pulse 88 88 90 88 Resp B/P (MAP) 136/79 (98) 132/74 (93) 135/79 (97) 128/79 (95) Pulse Ox 97 98 97 98 O2 Delivery Nasal Cannula Nasal Cannula Nasal Cannula Nasal Cannula O2 Flow Rate 2.0 2.0 2.0 2.0 12/23/18 12/23/18 12/23/18 12/23/18 03:31 04:00 05:07 05:44 Temp 98.0 98.0 Pulse 89 86 81 Resp B/P (MAP) 140/89 (106) 140/90 (107) 143/95 (111) Pulse Ox 98 94 O2 Delivery Nasal Cannula Nasal Cannula Nasal Cannula O2 Flow Rate 2.0 2.0 2.0 12/23/18 12/23/18 12/23/18 12/23/18 06:00 07:00 08:00 08:00 Temp 98.3 98.3 Pulse 94 92 84 Resp B/P (MAP) 145/95 (112) 146/106 (119) 133/94 (107) Pulse Ox 99 99 99 O2 Delivery Nasal Cannula Nasal Cannula Nasal Cannula Nasal Cannula O2 Flow Rate 2.0 2.0 2.0 2.0 12/23/18 12/23/18 12/23/18 12/23/18 08:23 09:00 09:07 09:08 Pulse 92 94 Resp B/P (MAP) 146/99 (115) 146/99 146/99 Pulse Ox 98 94 O2 Delivery Nasal Cannula Room Air O2 Flow Rate 2.0 12/23/18 12/23/18 12/23/18 12/23/18 09:09 09:10 11:52 12:00 Temp 97.5 97.5 Pulse 83 89 88 Resp 22 B/P (MAP) 146/99 146/99 99/67 (78) Pulse Ox 97 98 O2 Delivery Room Air Room Air Intake and Output 12/22/18 12/22/18 12/23/18 15:01 23:01 07:01 Intake Total 175 ml 1725 ml 150 ml Output Total 1180 ml 2350 ml 0 ml Balance -1005 ml -625 ml 150 ml MCSWEYN,PHILIP J MD Dec 23, 2018 13:11
[2018-12-23] MEDS: CLOPIDOGREL BISULFATE 75 MG TABLET PO SCH (15:07)
[2018-12-23] MEDS: PANTOPRAZOLE 40 MG TABLET.DR. PO SCH (15:13)
[2018-12-23] MEDS ORDERED: QUEtiapine 25 MG TABLET. PO PRN (20:15)
[2018-12-23] MEDS: ATORVASTATIN CALCIUM 20 MG TABLET PO SCH (20:30)
[2018-12-23] MEDS ORDERED: traZODone 100 MG TABLET. PO SCH (21:00)
[2018-12-24 03:30] VITALS: BP 124/81
[2018-12-24 05:45] LABS: ALBUMIN 2.4 g/dL (3.4-5.0); CALCIUM 8.7 mg/dL (8.5-10.1); CREATININE 1.7 mg/dL (0.7-1.3); GFR 51.7; PHOSPHORUS 3.2 mg/dL (2.6-4.7); POTASSIUM 3.5 mmol/L (3.5-5.1)
[2018-12-24 07:00] VITALS: BP 139/93
[2018-12-24] MEDS: BUDESONIDE 0.5 MG/2 ML NEBU. NEB SCH (08:23)
[2018-12-24] MEDS: ALBUTEROL SULFATE 2.5 MG/3 ML NEBU. NEB SCH ×2 (08:23→12:18)
--- NOTE | 2018-12-24 09:08 | PDOC ---
PULMONARY PROGRESS NOTES Subjective extubated 01/01 doing well Vitals Vital Signs Date Time Temp Pulse Resp B/P (MAP) Pulse Ox O2 Delivery O2 Flow Rate FiO2 12/24/18 08:10 95 Room Air 12/24/18 03:30 98.1 85 20 124/81 (95) 3.0 98.1 General: Alert, No acute distress Lungs: Clear Cardiovascular: S1 Abdomen: Soft Neuro Exam: Alert Extremities: No Edema Skin: Warm Labs Laboratory Tests Test 12/22/18 10:50 12/23/18 06:40 12/24/18 03:50 O2 Saturation 99 % (92-99) Arterial Blood pH 7.37 (7.35-7.45) Arterial Blood pCO2 at Patient Temp 38 mmHg (35-46) Arterial Blood pO2 at Patient Temp 146 mmHg (75-108) Arterial Blood HCO3 22 mmol/L (21-28) Arterial Blood Base Excess -3 mmol/L (-3-3) FiO2 40 Sodium Level 143 mmol/L (136-145) 142 mmol/L (136-145) Potassium Level 3.6 mmol/L (3.5-5.1) 3.5 mmol/L (3.5-5.1) Chloride Level 109 mmol/L (98-107) 107 mmol/L (98-107) Carbon Dioxide Level 26 mmol/L (21-32) 26 mmol/L (21-32) Anion Gap 8 (6-14) 9 (6-14) Blood Urea Nitrogen 29 mg/dL (8-26) 23 mg/dL (8-26) Creatinine 1.9 mg/dL (0.7-1.3) 1.7 mg/dL (0.7-1.3) Estimated GFR (Cockcroft-Gault) 45.4 51.7 Glucose Level 97 mg/dL (70-99) 137 mg/dL (70-99) Calcium Level 8.7 mg/dL (8.5-10.1) 8.7 mg/dL (8.5-10.1) Phosphorus Level 3.3 mg/dL (2.6-4.7) 3.2 mg/dL (2.6-4.7) Troponin I Quantitative 0.269 ng/mL (0.000-0.055) Albumin 2.5 g/dL (3.4-5.0) 2.4 g/dL (3.4-5.0) Laboratory Tests Test 12/24/18 03:50 Sodium Level 142 mmol/L (136-145) Potassium Level 3.5 mmol/L (3.5-5.1) Chloride Level 107 mmol/L (98-107) Carbon Dioxide Level 26 mmol/L (21-32) Anion Gap 9 (6-14) Blood Urea Nitrogen 23 mg/dL (8-26) Creatinine 1.7 mg/dL (0.7-1.3) Estimated GFR (Cockcroft-Gault) 51.7 Glucose Level 137 mg/dL (70-99) Calcium Level 8.7 mg/dL (8.5-10.1) Phosphorus Level 3.2 mg/dL (2.6-4.7) Albumin 2.4 g/dL (3.4-5.0) Medications Active Scripts Medications Dose Route/Sig Max Daily Dose Days Date Category [Pantoprazole] 40 MG Tablet.dr 40 Mg PO BIDAC 09/18/18 Rx Amlodipine Besylate 10 Mg Tablet 10 Mg PO BID 09/15/18 Reported Aspirin 81 Mg Tab.chew 1 Tab PO DAILY 09/15/18 Reported Ventolin Hfa Inhaler (Albuterol Sulfate) 18 Gm Hfa.aer.ad 2 Puff INH Q4HRS 20 08/07/18 Rx Breo Ellipta 200-25 Mcg INH (Fluticasone/Vilanterol) 1 Each Blst.w.dev 1 Puff IH DAILY 07/13/18 Rx Furosemide 40 Mg Tablet 40 Mg PO DAILY 07/13/18 Rx Carvedilol 12.5 Mg Tablet 25 Mg PO BIDWMEALS 30 07/13/18 Rx Isosorbide Mononitrate Er (Isosorbide Mononitrate) 30 Mg Tab.er.24h 60 Mg PO DAILY 07/13/18 Rx Hydralazine Hcl 50 Mg Tablet 100 Mg PO TID 07/13/18 Rx Clopidogrel (Clopidogrel Bisulfate) 75 Mg Tablet 75 Mg PO DAILYWBKFT 07/13/18 Rx Lipitor (Atorvastatin Calcium) 20 Mg Tablet 1 Tab PO DAILY 07/04/15 Rx Fluticasone Propionate Nasal [place] (Fluticasone Propionate) 1 [place] 2 [place] NS DAILY 07/04/15 Rx Comments CXR 2/10 RESOLVING CHF Impression . 1. Acute hypoxic and hypercapnic respiratory failure secondary to [id number] systolic and diastolic heart failure. extubated 12/22 2. The patient with known cardiomyopathy with an EF of 40%-45% and also grade 4 diastolic dysfunction, now comes in with hypertensive urgency and likely triggering congestive heart failure. Repeat echo with EF 35%, Moderate MR 3. 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 4. History of coronary artery disease, status post stents. 5. Underlying chronic obstructive pulmonary disease. 6. Abnormal chest x-ray, likely consistent with congestive heart failure. 7. substance abuse. UDS + for Cocaine Plan . RESP STATUS IS COMPENSATED WILL S/O CALL IF NEEDED THANKS CHAY FELIX MD Dec 24, 2018 09:08
[2018-12-24] MEDS: FUROSEMIDE 40 MG/4 ML VIAL. IVP SCH (09:41)
[2018-12-24] MEDS: FLUTICASONE 50MCG/NASAL SPRAY 16GM BOTTLE. NS SCH (09:41)
[2018-12-24] MEDS: ISOSORBIDE MONONITRATE ER 30 MG TAB.ER.24H PO SCH (09:43)
[2018-12-24] MEDS: ASPIRIN CHEWABLE 81 MG TABLET. PO SCH (09:43)
[2018-12-24] MEDS: PANTOPRAZOLE 40 MG TABLET.DR. PO SCH (09:43)
[2018-12-24] MEDS: amLODIPine BESYLATE 10 MG TABLET PO SCH (09:44)
[2018-12-24] MEDS: CARVEDILOL 12.5 MG TABLET. PO SCH (09:44)
[2018-12-24] MEDS: CLOPIDOGREL BISULFATE 75 MG TABLET PO SCH (09:48)
[2018-12-24 11:00] VITALS: BP 108/69
--- NOTE | 2018-12-24 13:32 | PDOC ---
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 Uncontrolled hypertension. Coronary artery disease with previous percutaneous coronary intervention at [facility]. Secondary pulmonary hypertension. Paroxysmal supraventricular tachycardia. Chronic kidney disease stage 3 History of Present Illness History of Present Illness Patient seen and examined bedside. Pt was sitting upright in the chair, alert and oriented, cooperative. Patient denies any respiratory distress, chest pain. He reports that he is feeling much better that previously. Possible discharge today. VSS. Vitals Vitals Vital Signs Date Time Temp Pulse Resp B/P (MAP) Pulse Ox O2 Delivery O2 Flow Rate FiO2 12/24/18 12:19 98 Room Air 12/24/18 11:00 98.2 76 20 108/69 (82) 98.2 12/24/18 07:00 2.0 Physical Exam General: Alert, Oriented X3, Cooperative, No acute distress Heart: Regular rate, No murmurs Lungs: Clear Abdomen: Normal bowel sounds, No tenderness, No hepatosplenomegaly Extremities: No clubbing, No cyanosis, No edema Skin: No rashes, No breakdown, No significant lesion Labs LABS Laboratory Tests Test 12/24/18 03:50 Sodium Level 142 mmol/L (136-145) Potassium Level 3.5 mmol/L (3.5-5.1) Chloride Level 107 mmol/L (98-107) Carbon Dioxide Level 26 mmol/L (21-32) Anion Gap 9 (6-14) Blood Urea Nitrogen 23 mg/dL (8-26) Creatinine 1.7 mg/dL (0.7-1.3) Estimated GFR (Cockcroft-Gault) 51.7 Glucose Level 137 mg/dL (70-99) Calcium Level 8.7 mg/dL (8.5-10.1) Phosphorus Level 3.2 mg/dL (2.6-4.7) Albumin 2.4 g/dL (3.4-5.0) Review of Systems Review of Systems GENERAL: no fatigue, no weakness, no fever, no chills. SKIN: dry, intact, no rash. CHEST: no murmur, no palpitation, no chest pain. LUNGS: no respiratory distress. Assessment and Plan Assessmemt and Plan Assessment 1. Acute Hypercapnic Respiratory Failure 2. Respiratory Acidosis 3. Congestive Heart Failure 4. Substance Abuse Plan 1. probable discharge today (awaiting insurance) if pulmonology ok. 2. continue home medications. 3. drapery counselor cessation for substance abuse. 4. f/u outpatient 5. labs/current meds - ICU step down if not discharged. Comment Review of Relevant I have reviewed the following items coleman (where applicable) has been applied. Labs Laboratory Tests Test 12/23/18 06:40 12/24/18 03:50 Sodium Level 143 mmol/L (136-145) 142 mmol/L (136-145) Potassium Level 3.6 mmol/L (3.5-5.1) 3.5 mmol/L (3.5-5.1) Chloride Level 109 mmol/L (98-107) 107 mmol/L (98-107) Carbon Dioxide Level 26 mmol/L (21-32) 26 mmol/L (21-32) Anion Gap 8 (6-14) 9 (6-14) Blood Urea Nitrogen 29 mg/dL (8-26) 23 mg/dL (8-26) Creatinine 1.9 mg/dL (0.7-1.3) 1.7 mg/dL (0.7-1.3) Estimated GFR (Cockcroft-Gault) 45.4 51.7 Glucose Level 97 mg/dL (70-99) 137 mg/dL (70-99) Calcium Level 8.7 mg/dL (8.5-10.1) 8.7 mg/dL (8.5-10.1) Phosphorus Level 3.3 mg/dL (2.6-4.7) 3.2 mg/dL (2.6-4.7) Troponin I Quantitative 0.269 ng/mL (0.000-0.055) Albumin 2.5 g/dL (3.4-5.0) 2.4 g/dL (3.4-5.0) Laboratory Tests Test 12/24/18 03:50 Sodium Level 142 mmol/L (136-145) Potassium Level 3.5 mmol/L (3.5-5.1) Chloride Level 107 mmol/L (98-107) Carbon Dioxide Level 26 mmol/L (21-32) Anion Gap 9 (6-14) Blood Urea Nitrogen 23 mg/dL (8-26) Creatinine 1.7 mg/dL (0.7-1.3) Estimated GFR (Cockcroft-Gault) 51.7 Glucose Level 137 mg/dL (70-99) Calcium Level 8.7 mg/dL (8.5-10.1) Phosphorus Level 3.2 mg/dL (2.6-4.7) Albumin 2.4 g/dL (3.4-5.0) Microbiology 12/21/18 Blood Culture - Preliminary, Resulted NO GROWTH AFTER 3 DAYS Medications Current Medications Ipratropium [place] (Atrovent) 0.5 mg 1X ONCE NEB Last administered on 08:48; Start 12/21/18 at 07:00; Stop 12/21/18 at 07:03; Status DC Methylprednisolone Sodium Succinate (SOLU-Medrol 125MG VIAL) 125 mg 1X ONCE IV Last administered on 12/21/18 08:05; Start 12/21/18 at 07:00; Stop 12/21/18 at 07:03; Status DC Albuterol Sulfate (Ventolin Neb Soln) 10 mg 1X ONCE CONT NEB Last administered on 12/21/18at 08:45; Start 12/21/18 at 07:00; Stop 12/21/18 at 07:03; Status DC Magnesium Sulfate 50 ml @ 25 mls/hr 1X ONCE IV Last administered on 12/21/18at 07:56; Start 12/21/18 at 07:00; Stop 12/21/18 at 08:59; Status DC Propofol 50 ml @ As Directed STK-MED ONCE IV ; Start 12/21/18 at 07:21; Stop 12/21 at 07:23; Status DC Sodium Chloride 1,000 ml @ 1,000 mls/hr 1X ONCE IV Last administered on at 07:00; Start 12/21/18 at 07:30; Stop 12/21/18 at 08:29; Status DC Propofol 100 ml @ 0 mls/hr CONT PRN IV SEE PROTOCOL Last administered on at 07:29; Start 12/21/18 at 07:30; Stop 12/21/18 at 11:56; Status DC Sodium Bicarbonate 150 meq/Sterile Water 1,150 ml @ 125 mls/hr 1X ONCE IV Last administered on 12/21/18at 07:57; Start 12/21/18 at 07:45; Stop 12/21/18 at 16: 56; Status DC Etomidate (Amidate) 20 mg STK-MED ONCE IV ; Start 12/21/18 at 08:20; Stop at 08:22; Status DC Vecuronium [place] (Norcuron Bolus) 10 mg STK-MED ONCE IV ; Start 12/21/18 at 08: 20; Stop 12/21/18 at 08:23; Status DC Midazolam HCl (Versed) 5 mg STK-MED ONCE .ROUTE ; Start 12/21/18 at 08:21; Stop 12/21/18 at 08:23; Status DC Etomidate (Amidate) 25 mg 1X ONCE IV Last administered on 12/21/18at 07:21; Start 12/21/18 at 07:21; Stop 12/21/18 at 08:39; Status DC Vecuronium [place] (Norcuron Bolus) 10 mg 1X ONCE IV Last administered on at 07:22; Start 12/21/18 at 07:22; Stop 12/21/18 at 08:39; Status DC Midazolam HCl (Versed) 5 mg 1X ONCE IV Last administered on 12/21/18at 07:24; Start 12/21/18 at 07:24; Stop 12/21/18 at 08:39; Status DC Vecuronium [place] (Norcuron Bolus) 10 mg 1X ONCE IV Last administered on at 07:25; Start 12/21/18 at 07:25; Stop 12/21/18 at 08:39; Status DC Furosemide (Lasix) 80 mg 1X ONCE IVP Last administered on 12/21/18at 08:44; Start 12/21/18 at 08:45; Stop 12/21/18 at 08:46; Status DC Metoprolol Tartrate (Lopressor Vial) 5 mg 1X ONCE IVP ; Start 12/21/18 at 08:45 ; Stop 12/21/18 at 08:46; Status DC Midazolam HCl (Versed) 5 mg 1X ONCE IV Last administered on 12/21/18at 08:41; Start 12/21/18 at 08:45; Stop 12/21/18 at 08:46; Status DC Furosemide (Lasix) 100 mg STK-MED ONCE .ROUTE ; Start 12/21/18 at 08:36; Stop 12/21/18 at 08:39; Status DC Midazolam HCl (Versed) 5 mg 1X ONCE NS Last administered on 12/21/18 09:48; Start 12/21/18 at 09:45; Stop 12/21/18 at 09:48; Status DC Propofol 50 ml @ As Directed STK-MED ONCE IV ; Start 12/21/18 at 09:55; Stop 12/21 at 09:57; Status DC Midazolam HCl (Versed) 5 mg 1X ONCE NS Last administered on 12/21/18 10:45; Start 12/21/18 at 11:30; Stop 12/21/18 at 11:31; Status DC Famotidine (Pepcid Vial) 20 mg BID IVP Last administered on 12/21/18at 13:50; Start 12/21/18 at 14:00; Stop 12/21/18 at 14:26; Status DC Enoxaparin Sodium (Lovenox Per Pharmacy Prophylaxis Dosing) 1 each PRN DAILY PRN MC SEE COMMENTS; Start 12/21/18 at 11:45; Stop 12/21/18 at 14:27; Status DC Propofol 100 ml @ 0 mls/hr CONT PRN IV SEE I/O RECORD Last administered on 05:50; Start 12/21/18 at 11:45 Enoxaparin Sodium (Lovenox 40mg Syringe) 40 mg Q24H SQ Last administered on 12/22 14:43; Start 12/21/18 at 14:00 Famotidine (Pepcid Vial) 20 mg DAILY IVP Last administered on 12/22/18 09:15; Start 12/22/18 at 09:00; Stop 12/23/18 at 15:01; Status DC Amlodipine Besylate (Norvasc) 10 mg BID PO Last administered on 12/24/18 09:44 ; Start 12/21/18 at 21:00 Aspirin (Children'S Aspirin) 81 mg DAILY PO Last administered on 12/24/18 09: 43; Start 12/22/18 at 09:00 Atorvastatin Calcium (Lipitor) 20 mg QHS PO Last administered on 12/23/18 20: 30; Start 12/21/18 at 21:00 Carvedilol (Coreg) 25 mg BIDWMEALS PO Last administered on 12/24/18 09:44; Start 12/21/18 at 17:00 Clopidogrel Bisulfate (Plavix) 75 mg DAILYWBKFT PO Last administered on 09:48; Start 12/22/18 at 08:00 Fluticasone Propionate (Flonase) 2 spray DAILY NS Last administered on 09:41; Start 12/22/18 at 09:00 Furosemide (Lasix) 40 mg DAILY PO ; Start 12/22/18 at 09:00; Status Cancel Isosorbide Mononitrate (Imdur) 60 mg DAILY PO Last administered on 12/24/18 09 :43; Start 12/22/18 at 09:00 Non-Formulary Medication (Albuterol Sulfate (Ventolin Hfa Inhaler)) 2 puff Q4HRS INH ; Start 12/21/18 at 20:00; Status UNV Non-Formulary Medication (Fluticasone/ Vilanterol (Breo Ellipta 200-25 Mcg INH) ) 1 puff DAILY IH ; Start 12/22/18 at 09:00; Status UNV Hydralazine HCl (Apresoline) 100 mg TID PO Last administered on 12/23/18 20:30 ; Start 12/21/18 at 21:00 Non-Formulary Medication ([Pantoprazole] ) 40 mg BIDAC PO ; Start 12/22/18 at 07: 30; Status UNV Budesonide (Pulmicort) 0.5 mg RTBID NEB Last administered on 12/24/18 08:23; Start 12/21/18 at 20:00 Albuterol Sulfate (Ventolin Neb Soln) 2.5 mg RTQID NEB Last administered on 12:18; Start 12/21/18 at 20:00 Furosemide (Lasix) 40 mg DAILY IVP Last administered on 12/24/18 09:41; Start 12/21/18 at 17:00 Throat Lozenges (Cepacol Sore Throat Lozenge) 1 rashi PRN Q2HRS PRN PO SORE THROAT; Start 12/22/18 at 13:00 Acetaminophen (Tylenol) 500 mg PRN Q6HRS PRN PO MILD PAIN / TEMP Last administered on 2/9/19at 23:46; Start 12/22/18 at 23:45 Nitroglycerin (Nitrostat) 0.4 mg STK-MED ONCE SL ; Start 12/23/18 at 05:40; Stop 12/23/18 at 05:42; Status DC Nitroglycerin (Nitrostat) 0.4 mg PRN Q5MIN PRN SL CHEST PAIN; Start 12/23/18 at 05:45 Pantoprazole Sodium (Protonix) 40 mg DAILYAC PO Last administered on 12/24/18at 09:43; Start 12/23/18 at 16:00 Trazodone HCl (Desyrel) 100 mg QHS PO Last administered on 12/23/18at 20:30; Start 12/23/18 at 21:00 Quetiapine Fumarate (SEROquel) 50 mg PRN QHS PRN PO INSOMNIA; Start 12/23/18 at 20:15 Active Scripts Active [Pantoprazole] 40 MG Tablet.dr 40 Mg PO BIDAC Ventolin Hfa Inhaler (Albuterol Sulfate) 18 Gm Hfa.aer.ad 2 Puff INH Q4HRS 20 Days Furosemide 40 Mg Tablet 40 Mg PO DAILY 30 Days Carvedilol (Carvedilol) 12.5 Mg Tablet 25 Mg PO BIDWMEALS 30 Days Isosorbide Mononitrate Er (Isosorbide Mononitrate) 30 Mg Tab.er.24h 60 Mg PO DAILY 30 Days Hydralazine Hcl 50 Mg Tablet 100 Mg PO TID 30 Days Lipitor (Atorvastatin Calcium) 20 Mg Tablet 1 Tab PO DAILY Fluticasone Propionate Nasal [place] (Fluticasone Propionate) 1 [place] 2 [place] NS DAILY Reported Amlodipine Besylate 10 Mg Tablet 10 Mg PO BID Aspirin 81 Mg Tab.chew 1 Tab PO DAILY Vitals/I & O Vital Sign - Last 24 Hours 12/23/18 12/23/18 12/23/18 12/23/18 16:00 16:04 17:29 19:40 Temp 97.5 97.7 97.5 97.7 Pulse 82 82 84 Resp 24 28 B/P (MAP) 117/75 (89) 118/79 124/88 (100) Pulse Ox 98 98 O2 Delivery Room Air Room Air Room Air 12/23/18 12/23/18 12/23/18 12/23/18 19:45 20:07 20:08 20:30 Pulse 84 B/P (MAP) 124/88 O2 Delivery Room Air Room Air Room Air 12/23/18 12/23/18 12/24/18 12/24/18 20:30 22:37 03:28 03:30 Temp 98.1 98.1 98.1 98.1 Pulse 84 85 85 Resp 22 20 B/P (MAP) 124/88 100/64 (76) 124/81 (95) Pulse Ox 92 86 94 O2 Delivery Room Air Room Air Nasal Cannula O2 Flow Rate 3.0 12/24/18 12/24/18 12/24/18 12/24/18 07:00 08:00 08:10 09:43 Temp 98.2 98.2 Pulse 86 81 Resp 20 B/P (MAP) 139/93 (108) 139/95 Pulse Ox 100 95 O2 Delivery Nasal Cannula Room Air Room Air O2 Flow Rate 2.0 12/24/18 12/24/18 12/24/18 12/24/18 09:44 09:44 11:00 12:19 Temp 98.2 98.2 Pulse 81 76 Resp 20 B/P (MAP) 139/95 139/95 108/69 (82) Pulse Ox 97 98 O2 Delivery Room Air Room Air Intake and Output 12/23/18 12/23/18 12/24/18 15:01 23:01 07:01 Intake Total 500 ml 400 ml 500 ml Output Total 1650 ml 200 ml Balance -1150 ml 200 ml 500 ml KARLY MITCHELL III DO Dec 24, 2018 13:32
--- NOTE | 2018-12-24 13:39 | DS ---
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 DISCHARGE DIAGNOSIS: Resolving respiratory failure. CONSULTS: Dr. Jackson and Dr. Crane. PROCEDURES: None. HOSPITAL COURSE: The patient is a pleasant middle-aged male who smokes some crack cocaine and developed fulminant respiratory failure. He has known chronic medical issues including coronary artery disease and CHF and amyloidosis. When he hit the ER, he was very hypoxic. They tried BiPAP. His drug screen was positive for cocaine. They then had to intubate the patient. The patient was transferred to the ICU where he has now been extubated. Over the past couple of days, he is improved. This morning, I saw and examined him. His heart tones were normal. His lungs were clear. I discussed the case with the nurse. We plan to discharge if okay with Dr. Jackson. DISPOSITION: Home. ACTIVITY: As tolerated. DIET: Low sodium. MEDICATIONS: Please see the MRAD. TOTAL TIME: 32 minutes. TONYAL Esperanza MITCHELL DO DR: LORRIE/kathryn JOB#: [id number] / [id number]
[2018-12-24] MEDS ORDERED: CLOP75TA PO (14:19)
--- NOTE | 2018-12-24 15:08 | PDOC ---
SHRAVAN WOOD ASSEMBLER ADJUSTER 12/24/18 1508: CARDIO Progress Notes Date and Time Date of Service 12/24/18 Time of Evaluation 1015 Subjective Subjective: No Chest Pain, No shortness of breath, No Palpitations Vitals Vitals Vital Signs Date Time Temp Pulse Resp B/P (MAP) Pulse Ox O2 Delivery O2 Flow Rate FiO2 12/24/18 12:19 98 Room Air 12/24/18 11:00 98.2 76 20 108/69 (82) 98.2 12/24/18 07:00 2.0 Weight Weight [ ] Input and Output Intake and Output Intake and Output 12/24/18 07:01 Intake Total 1400 ml Output Total 1850 ml Balance -450 ml Intake Oral 1400 ml Output Urine Total 1850 ml # Voids 2 Laboratory Labs Laboratory Tests Test 12/24/18 03:50 Sodium Level 142 mmol/L (136-145) Potassium Level 3.5 mmol/L (3.5-5.1) Chloride Level 107 mmol/L (98-107) Carbon Dioxide Level 26 mmol/L (21-32) Anion Gap 9 (6-14) Blood Urea Nitrogen 23 mg/dL (8-26) Creatinine 1.7 mg/dL (0.7-1.3) Estimated GFR (Cockcroft-Gault) 51.7 Glucose Level 137 mg/dL (70-99) Calcium Level 8.7 mg/dL (8.5-10.1) Phosphorus Level 3.2 mg/dL (2.6-4.7) Albumin 2.4 g/dL (3.4-5.0) Microbiology Micro Microbiology 12/21/18 Blood Culture - Preliminary, Resulted NO GROWTH AFTER 3 DAYS Physical Exam HEENT: Neck Supple W Full Motion Chest: Symmetric LUNGS: Clear to Auscultation, Other (diminished bases ) Heart: S1S2, RRR Abdomen: Soft N/T Extremities: Other (trace bilateral LE edema ) Neurology: alert, oriented, follow commands Assessment Assessment 1. Acute on chronic respiratory failure secondary to a/c HF; s/p intubation- extubated 12/22 2. Acute on chronic combined systolic/diastolic HF; Echo showed LVEF 35%. Improved with diuresis. Appears compensated 3. NSTEMI: h/o chronic troponin elevation; peak troponin 0.299. Most probably type 2 demand mediated with multiple culprits as noted above 4. Leukocytosis, lactic acidosis 5. CAD: PCI/stent 06/2017 and cath at [facility] 12/2017 with patent diagonal stent with mild disease to LAD. Stable. CP free 6. COPD with severe pulmonary HTN with continued tobaccoism; 7. HTN; controlled 8. Hyperlipidemia; statin 9. Valvular insufficiency 10. 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 Failed follow up and further w/u due to financial constraints of loss of ins. 11. CKD; CR stable per review 12. Hx of recent PUD/GI bleed 13. Substance abuse; UDS + cocaine; discussed/encouraged cessation Recommendations Convert lasix to oral Continue secondary prevention measures Risk stratification modification Continue Plavix. D/c ASA due to h/o GI bleed JELENA GRACIA MD 12/24/18 1720: CARDIO Progress Notes Assessment Assessment Patient seen and examined. Agree with TEACHER LIP READING's assessment and plan. Acute on chronic combined systolic and diastolic heart failure better compensated Agree with changing Lasix to by mouth CAD status clinically stable. Slight troponin elevation demand ischemia Follow-up with primary orthopedic nurse practitioner upon discharge SHRAVAN WOOD APRN Dec 24, 2018 15:08 JELENA GRACIA MD Dec 24, 2018 17:20
[2018-12-25] MEDS ORDERED: FUROSEMIDE 40 MG TABLET. PO SCH (09:00)
[2019-01-28] MEDS ORDERED: METH4TAB2 PO (17:07)
== END 2018-12-25 | disposition home or self-care (01) | DRG 208 ==
LOC: ER 06:47 → 1 WEST ICU 10:02
PROVIDERS: ADMIT Internal Medicine; ATTEND Internal Medicine
PROC: 5A1945Z Respiratory Ventilation, 24-96 Consecutive Hours (ICD-10-PCS; principal; 2018-12-21)
PROC: 0BH17EZ Insertion of Endotracheal Airway into Trachea, Via Natural or Artificial Opening (ICD-10-PCS; 2018-12-21)
PROC: 5A09357 Assistance with Respiratory Ventilation, Less than 24 Consecutive Hours, Continuous Positive Airway Pressure (ICD-10-PCS; 2018-12-21)
DX: J96.21 Acute and chronic respiratory failure with hypoxia (principal); I21.4 Non-ST elevation (NSTEMI) myocardial infarction; I50.43 Acute on chronic combined systolic (congestive) and diastolic (congestive) heart failure; E87.2 Acidosis; I13.0 Hypertensive heart and chronic kidney disease with heart failure and stage 1 through stage 4 chronic kidney disease, or unspecified chronic kidney disease; I42.8 Other cardiomyopathies; I47.1 Supraventricular tachycardia; J96.22 Acute and chronic respiratory failure with hypercapnia; I16.0 Hypertensive urgency; M19.90 Unspecified osteoarthritis, unspecified site; D72.829 Elevated white blood cell count, unspecified; E78.5 Hyperlipidemia, unspecified; F14.10 Cocaine abuse, uncomplicated; F17.210 Nicotine dependence, cigarettes, uncomplicated; G47.33 Obstructive sleep apnea (adult) (pediatric); J30.9 Allergic rhinitis, unspecified; I25.10 Atherosclerotic heart disease of native coronary artery without angina pectoris; I27.29 Other secondary pulmonary hypertension; J44.9 Chronic obstructive pulmonary disease, unspecified; N18.3 Chronic kidney disease, stage 3 (moderate); Z82.49 Family history of ischemic heart disease and other diseases of the circulatory system; Z95.5 Presence of coronary angioplasty implant and graft; Z87.11 Personal history of peptic ulcer disease; Z88.8 Allergy status to other drugs, medicaments and biological substances; Z79.899 Other long term (current) drug therapy; Z90.49 Acquired absence of other specified parts of digestive tract; Z71.51 Drug abuse counseling and surveillance of drug abuser
CPT/HCPCS: 31500; 36415; 36600; 51702; 71045; 74018; 80048; 80053; 80069; 80307; 82805; 82962; 83605; 83880; 84484; 85025; 87040; 87641; 87804; 93005; 93306; 94002; 94003; 94640; 94660; 94760; 96361; 96365; 96366; 96368; 96375; 99406; J1650; J1940; J2250; J2704; J2930; J3475; J3490; J7030; J7613; J7626; J7644; 99291-25; G0378

== ENCOUNTER 2019-01-12 21:19 | Inpatient (IN) | payer SELFPAY ==
[~2019-01-12] VITALS: Ht 182.9 cm; Wt 94.0 kg
[2019-01-12] MEDS ORDERED: fentaNYL PF VIAL 100 MCG/2 ML VIAL ONE (21:50)
[2019-01-12 21:52] LABS: BASO # 0.1 x10^3/uL (0.0-0.2); BASO % 1 % (0-3); EOS % 0 % (0-3); HEMATOCRIT 31.7 % (39.0-53.0); HEMOGLOBIN 9.4 g/dL (13.0-17.5); LYMPH # 2.3 x10^3/uL (1.0-4.8); LYMPH % 24 % (24-48); MEAN CORPUSCULAR HEMOGLOBIN 19 pg (25-35); MEAN CORPUSCULAR HGB CONC 30 g/dL (31-37); MEAN CORPUSCULAR VOLUME 64 fL (79-100); MONO # 0.9 x10^3/uL (0.0-1.1); MONO % 9 % (0-9); NEUT % 65 % (31-73); PLATELET COUNT 409 x10^3/uL (140-400); RED BLOOD COUNT 4.93 x10^6/uL (4.30-5.70); RED CELL DISTRIBUTION WIDTH 25.2 % (11.5-14.5); WHITE BLOOD COUNT 9.3 x10^3/uL (4.0-11.0)
[2019-01-12] MEDS ORDERED: ASPIRIN 325 MG TABLET PO ONE (22:00)
[2019-01-12] MEDS ORDERED: IV NORMAL SALINE 1000ML BAG 1,000 ML IV ONE (22:00)
[2019-01-12 22:23] LABS: CALCIUM 9.2 mg/dL (8.5-10.1); CREATININE 2.4 mg/dL (0.7-1.3); GFR 34.7; POTASSIUM 3.8 mmol/L (3.5-5.1)
[2019-01-12 22:25] LABS: PROTHROMBIN TIME PATIENT 14.3 SEC (11.7-14.0)
[2019-01-12 22:29] LABS: ALBUMIN 3.2 g/dL (3.4-5.0); ALBUMIN/GLOBULIN RATIO 0.9 (1.0-1.7); D-DIMER 0.88 ug/mlFEU (0.00-0.50); MAGNESIUM 2.2 mg/dL (1.8-2.4); TOTAL BILIRUBIN 0.5 mg/dL (0.2-1.0); TOTAL PROTEIN 6.9 g/dL (6.4-8.2)
[2019-01-12] MEDS ORDERED: NITROGLYCERIN OINT 1 GM PACKET. TP ONE (22:30)
[2019-01-12] MEDS ORDERED: fentaNYL PF VIAL 100 MCG/2 ML VIAL IV ONE ×2 (22:30→23:30)
[2019-01-12] MEDS ORDERED: hydrALAZINE 20 MG/ML VIAL. IVP ONE (23:00)
--- NOTE | 2019-01-12 23:39 | PHYS DOC ---
Past Medical History Past Medical History: CHF, COPD, CVA, Hypertension, IA Additional Past Medical Histor: UPPER GI BLEED, irregular heart beat, BEV, KIDNEY FAILURE Past Surgical History: No Surgical History Additional Past Surgical Histo: cardiac cath with stent placement Smoking: Cigarettes Alcohol Use: None Drug Use: None Adult General Chief Complaint Chief Complaint: CHEST PAIN HPI HPI 53 y/o male presents with report of left sided chest pain with associated SOA x 2 days. Also reports productive cough with "blood tinged" sputum x 1 month. Patient reports he was recently admitted to [facility] for similar. Reports they told patient he would need a "biopsy" of his heart. Patient unsure what the biopsy was being checked for. Reports pain now worse. Denies trauma. Denies leg swelling or calf tenderness. Denies history or family hx of PE/DVT. Reports cardiac risk factors for HTN, prior CAD, and smoking. Review of Systems Review of Systems Constitutional: Denies fever or chills [] Eyes: Denies change in visual acuity, redness, or eye pain [] HENT: Denies nasal congestion or sore throat [] Respiratory: Repots shortness of breath and productive cough Cardiovascular: Reports chest pain; denies pleuritic pain] GI: Denies abdominal pain, nausea, vomiting, or diarrhea [] : Denies dysuria or hematuria [] Musculoskeletal: Denies back pain or joint pain [] Integument: Denies rash or skin lesions [] Neurologic: Denies headache, focal weakness or sensory changes [] Complete systems were reviewed and found to be within normal limits, except as documented in this note. Current Medications Current Medications Current Medications Medications (Trade) Dose Ordered Sig/[facility] Start Time Stop Time Status Last Admin Dose Admin Aspirin (Nilson Aspirin) 325 mg 1X ONCE 01/12/19 22:00 01/12/19 22:00 DC Fentanyl Citrate (Fentanyl 2ml Vial) 50 mcg 1X ONCE 01/12/19 23:30 01/12/19 23:31 DC 01/12/19 23:24 50 MCG Hydralazine HCl (Apresoline Inj) 20 mg 1X ONCE 01/12/19 23:00 01/12/19 23:01 DC 01/12/19 23:23 20 MG Nitroglycerin (Nitro-Bid Oint) 1 inch 1X ONCE 01/12/19 22:30 01/12/19 22:31 DC 01/12/19 22:03 1 INCH Sodium Chloride 1,000 ml @ 1,000 mls/hr 1X ONCE 01/12/19 22:00 01/12/19 22:00 DC Allergies Allergies Allergies Coded Allergies Type Severity Reaction Last Updated Verified lisinopril Allergy Severe Swelling 08/09/18 Yes Physical Exam Physical Exam Constitutional: Well developed, well nourished, no acute distress, non-toxic appearance. [] HENT: Normocephalic, atraumatic, oropharynx moist Eyes: Conjunctiva normal, no discharge. [] Neck: Normal range of motion, no tenderness, supple Cardiovascular: Heart rate regular rhythm, no murmur [] Lungs & Thorax: Bilateral breath sounds clear to auscultation [] Abdomen: Soft, no tenderness Skin: Warm, dry, no erythema, no rash. [] Extremities: No tenderness, ROM intact, no edema. [] Neurologic: Alert and oriented X 3, normal motor function, normal sensory function, no focal deficits noted. [] Psychologic: Affect normal, judgement normal, mood normal. [] Current Patient Data Vital Signs Vital Signs Date Time Temp Pulse Resp B/P (MAP) Pulse Ox O2 Delivery O2 Flow Rate FiO2 01/12/19 23:30 94 19 167/89 (115) 97 Nasal Cannula 2.0 01/12/19 21:20 97.7 97.7 Lab Values Laboratory Tests Test 01/12/19 21:35 01/12/19 22:05 White Blood Count 9.3 x10^3/uL (4.0-11.0) Red Blood Count 4.93 x10^6/uL (4.30-5.70) Hemoglobin 9.4 g/dL (13.0-17.5) L Hematocrit 31.7 % (39.0-53.0) L Mean Corpuscular Volume 64 fL (79-100) L Mean Corpuscular Hemoglobin 19 pg (25-35) L Mean Corpuscular Hemoglobin Concent 30 g/dL (31-37) L Red Cell Distribution Width 25.2 % (11.5-14.5) H Platelet Count 409 x10^3/uL (140-400) H Neutrophils (%) (Auto) 65 % (31-73) Lymphocytes (%) (Auto) 24 % (24-48) Monocytes (%) (Auto) 9 % (0-9) Eosinophils (%) (Auto) 0 % (0-3) Basophils (%) (Auto) 1 % (0-3) Neutrophils # (Auto) 6.0 x10^3uL (1.8-7.7) Lymphocytes # (Auto) 2.3 x10^3/uL (1.0-4.8) Monocytes # (Auto) 0.9 x10^3/uL (0.0-1.1) Eosinophils # (Auto) 0.0 x10^3/uL (0.0-0.7) Basophils # (Auto) 0.1 x10^3/uL (0.0-0.2) Platelet Estimate Increased (ADEQUATE) Giant Platelets Occ Polychromasia Slight Hypochromasia Marked Anisocytosis Marked Microcytosis Marked Macrocytosis Slight Target Cells Occ Tear Drop Cells Occ Ovalocytes Occ Prothrombin Time 14.3 SEC (11.7-14.0) H Prothrombin Time INR 1.1 (0.8-1.1) D-Dimer (Thelma) 0.88 ug/mlFEU (0.00-0.50) H Sodium Level 141 mmol/L (136-145) Potassium Level 3.8 mmol/L (3.5-5.1) Chloride Level 102 mmol/L (98-107) Carbon Dioxide Level 28 mmol/L (21-32) Anion Gap 11 (6-14) Blood Urea Nitrogen 32 mg/dL (8-26) H Creatinine 2.4 mg/dL (0.7-1.3) H Estimated GFR (Cockcroft-Gault) 34.7 BUN/Creatinine Ratio 13 (6-20) Glucose Level 92 mg/dL (70-99) Calcium Level 9.2 mg/dL (8.5-10.1) Magnesium Level 2.2 mg/dL (1.8-2.4) Total Bilirubin 0.5 mg/dL (0.2-1.0) Aspartate Amino Transferase (AST) 39 U/L (15-37) H Alanine Aminotransferase (ALT) 33 U/L (16-63) Alkaline Phosphatase 58 U/L (46-116) Creatine Kinase 508 U/L (39-308) H Creatine Kinase MB (Mass) 5.4 ng/mL (0.0-3.6) H Creatine Kinase MB Relative Index 1.1 % (0-4) Troponin I Quantitative 0.263 ng/mL (0.000-0.055) SI-Wtd-Q-Type Natriuretic Peptide 6846 pg/mL (0-124) H Total Protein 6.9 g/dL (6.4-8.2) Albumin 3.2 g/dL (3.4-5.0) L Albumin/Globulin Ratio 0.9 (1.0-1.7) L Lipase 131 U/L (73-393) Laboratory Tests 01/12/19 21:35 Laboratory Tests 01/12/19 22:05 EKG EKG @2123 Sinus tachycardia at 103bpm, PACs, NO ST elevation, LAFB Radiology/Procedures Radiology/Procedures PROCEDURE: CHEST PA & LATERAL Two-view chest dated 01/12/2019. Comparison made to 12/23/2018. CLINICAL INDICATION: Cough for one month. FINDINGS: PA and lateral views obtained. Heart and mediastinal contours are stable. Patchy perihilar opacities have somewhat improved from prior exam. There is mild persistent hazy increased density at the right mid zone with mild patchy and linear opacity at the retrocardiac left base. No pleural effusion or pneumothorax. No new infiltrate. IMPRESSION: 1. Improving bilateral airspace disease. Electronically signed by: Inocencio López MD (01/12/2019 11:41 PM) Course & Med Decision Making Course & Med Decision Making Pertinent Labs and Imaging studies reviewed. (See chart for details) Patient presents with history of left sided chest pain with associated SOA and productive cough. hx of recent admission to [facility]. Reports need for cardiac bx per patient. EKG stable. Labs obtained and posted to chart. Troponin indeterminate. Hx of chronic renal insufficiency. Patient took ASA prior to arrival. HEART score 6. D-dimer also elevated. Given renal insufficiency, unable to obtain CTA chest. CXR stable. V/Q scan ordered and pending. Pain addressed. Patient requiring admission for further evaluation and treatment. Discussed with Dr. Ma (hospitalist) who is in agreement with admit. Discussed findings and plan with patient, who acknowledges understanding and agreement. Anafore, voice recognition software, utilized. Android App Review Sourceon Disclaimer Dragon Disclaimer This electronic medical record was generated, in whole or in part, using a voice recognition dictation system. Departure Departure Impression: Primary Impression: Chest pain Additional Impressions: Elevated troponin I level Chronic kidney disease Elevated d-dimer Disposition: ADMITTED INPATIENT Admitting Physician: Paula Ma Condition: GUARDED Referrals: UNKNOWN PCP NAME (PCP) Problem Qualifiers Primary Impression: Chest pain Chest pain type: unspecified Qualified Codes: R07.9 - Chest pain, unspecified Additional Impressions: Chronic kidney disease Chronic kidney disease stage: unspecified stage Qualified Codes: N18.9 - Chronic kidney disease, unspecified INOCENCIO JACOBO DO Jan 12, 2019 23:39
--- NOTE | 2019-01-12 23:44 | RAD ---
Two-view chest dated 01/12/2019. Comparison made to 12/23/2018. CLINICAL INDICATION: Cough for one month. FINDINGS: PA and lateral views obtained. Heart and mediastinal contours are stable. Patchy perihilar opacities have somewhat improved from prior exam. There is mild persistent hazy increased density at the right mid zone with mild patchy and linear opacity at the retrocardiac left base. No pleural effusion or pneumothorax. No new infiltrate. IMPRESSION: 1. Improving bilateral airspace disease. Electronically signed by: Inocencio López MD (01/12/2019 11:41 PM) [facility]
[2019-01-12] MEDS ORDERED: ONDANSETRON PF 4 MG/2 ML VIAL. IV PRN (23:45)
[2019-01-13 03:36] VITALS: BP 147/92
[2019-01-13 03:59] LABS: PLT ESTIMATE INCREASED (ADEQUATE); POLYCHROMASIA SLIGHT
[2019-01-13 04:00] LABS: ANISOCYTOSIS MARKED; HYPOCHROMIA MARKED; MICROCYTOSIS MARKED; OVALOCYTES OCC; TARGET CELLS OCC; TEAR DROP CELLS OCC
[2019-01-13 05:46] LABS: CHOLESTEROL/HDL RATIO 4.5
[2019-01-13 07:00] VITALS: BP 183/91
[2019-01-13] MEDS: fentaNYL PF VIAL 100 MCG/2 ML VIAL IV PRN ×2 (08:11→19:41)
--- NOTE | 2019-01-13 09:09 | PDOC1 ---
History and Physical Date of Admission Date of Admission DATE: 01/13/19 TIME: 09:09 Identification/Chief Complaint Chief Complaint chest pain Source Source: Chart review, Patient History of Present Illness History of Present Illness Mr. Blanton, is a 53 y/o male admit with chest pain. Acute left sided chestpain with pressure and dyspnea x2 dyas. Also reports productive cough with "blood tinged" sputum x 1 month. he reports being admitted to [facility] last week, and they couldnt find out what was wrong and were considereing a cardiac biopsy, but he is unsure as to why. Patient unsure what the biopsy was being checked for. he reports severe pain only better with IV pain meds Reports pain now worse. Denies trauma. Denies leg swelling or calf tenderness Past Medical History Cardiovascular: CAD, CHF, HTN, Hyperlipidemia, Other Pulmonary: Asthma, COPD CENTRAL NERVOUS SYSTEM: Other GI: No pertinent hx Heme/Onc: No pertinent hx Hepatobiliary: No pertinent hx Psych: No pertinent hx Musculoskeletal: Osteoarthritis Rheumatologic: No pertinent hx Infectious disease: No pertinent hx Renal/: Chronic renal insuff Endocrine: No pertinent hx Past Surgical History Past Surgical History: Tonsillectomy, Other Family History Family History: Hypertension Social History Smoke: <1 pack per day ALCOHOL: none Drugs: None, Other (cocaine prev. ) Current Problem List Problem List Problems Medical Problems: (1) Chronic kidney disease Status: Acute (2) Elevated troponin I level Status: Acute Current Medications Current Medications Current Medications Aspirin (Nilson Aspirin) 325 mg 1X ONCE PO ; Start 01/12/19 at 22:00; Stop at 22:00; Status DC Sodium Chloride 1,000 ml @ 1,000 mls/hr 1X ONCE IV ; Start 01/12/19 at 22:00; Stop 01/12/19 at 22:00; Status DC Nitroglycerin (Nitro-Bid Oint) 1 inch 1X ONCE TP Last administered on at 22:03; Start 01/12/19 at 22:30; Stop 01/12/19 at 22:31; Status DC Fentanyl Citrate (Fentanyl 2ml Vial) 50 mcg 1X ONCE IV Last administered on 01/12/19at 22:10; Start 01/12/19 at 22:30; Stop 01/12/19 at 22:31; Status DC Fentanyl Citrate (Fentanyl 2ml Vial) 100 mcg [facility] ONCE .ROUTE ; Start at 21:50; Stop 01/12/19 at 21:51; Status DC Hydralazine HCl (Apresoline Inj) 20 mg 1X ONCE IVP Last administered on at 23:23; Start 01/12/19 at 23:00; Stop 01/12/19 at 23:01; Status DC Fentanyl Citrate (Fentanyl 2ml Vial) 50 mcg 1X ONCE IV Last administered on 01/12/19at 23:24; Start 01/12/19 at 23:30; Stop 01/12/19 at 23:31; Status DC Ondansetron HCl (Zofran) 4 mg PRN Q8HRS PRN IV NAUSEA/VOMITING 1ST CHOICE; Start 01/12/19 at 23:45; Stop 01/13/19 at 23:44 Fentanyl Citrate (Fentanyl 2ml Vial) 50 mcg PRN Q2HRS PRN IV SEVERE PAIN Last administered on 01/13/19at 08:11; Start 01/12/19 at 23:45; Stop 01/13/19 at 23:44 Active Scripts Active [Pantoprazole] 40 MG Tablet.dr 40 Mg PO BIDAC Ventolin Hfa Inhaler (Albuterol Sulfate) 18 Gm Hfa.aer.ad 2 Puff INH Q4HRS 20 Days Furosemide 40 Mg Tablet 40 Mg PO DAILY 30 Days Carvedilol (Carvedilol) 12.5 Mg Tablet 25 Mg PO BIDWMEALS 30 Days Isosorbide Mononitrate Er (Isosorbide Mononitrate) 30 Mg Tab.er.24h 60 Mg PO DAILY 30 Days Hydralazine Hcl 50 Mg Tablet 100 Mg PO TID 30 Days Lipitor (Atorvastatin Calcium) 20 Mg Tablet 1 Tab PO DAILY Fluticasone Propionate Nasal Scroggins (Fluticasone Propionate) 1 Scroggins Scroggins 2 Scroggins NS DAILY Reported Clopidogrel (Clopidogrel Bisulfate) 75 Mg Tablet 1 Tab PO DAILY Amlodipine Besylate 10 Mg Tablet 10 Mg PO BID Allergies Allergies: Coded Allergies: lisinopril (Verified Allergy, Severe, Swelling, 08/09/18) caused throat swelling ROS General: YES: Chills; No: Night Sweats, Malaise, Appetite, Other PSYCHOLOGICAL ROS: YES: Anxiety, Irritablity, Sleep disturbances; No: Behavioral Disorder, Concentration difficultie, Decreased libido, Depression, Disorientation, Hallucinations, Hostility, Memory difficulties, Mood Swings, Obsessive thoughts, Other Eyes: No Blurry vision, No Decreased vision, No Double vision, No Dry eyes, No Excessive tearing, No Eye Pain, No Itchy Eyes, No Loss of vision, No Photophobia , No Scotomata, No Uses contacts, No Uses glasses, No Other HEENT: No: Heacaches, Visual Changes, Hearing change, Nasal congestion, Nasal discharge, Oral lesions, Sinus pain, Sore Throat, Epistaxis, Sneezing, Snoring, Tinnitus, Vertigo, Vocal changes, Other Respiratory: YES: Cough, Pleuritic Pain, SOB with excertion, Tachypnea, Wheezing, Other; No: Hemoptysis, Orthopnea, Shortness of breath, Sputum Changes, Stridor Cardiovascular: yes Chest Pain Gastrointestinal: Yes Nausea; No Vomiting, No Abdominal Pain, No Diarrhea, No Constipation, No Melena, No Hematochezia, No Other Genitourinary: No Dysuria, No Frequency, No Incontinence, No Hematuria, No Retention, No Discharge, No Urgency, No Pain, No Flank Pain, No Other, No , No , No , No , No , No , No Musculoskeletal: Yes Joint Pain, Yes Joint Stiffness; No Gait Disturbance, No Joint Swelling, No Muscle Pain, No Muscular Weakness , No Pain In:, No Swelling In:, No Other Neurological: No Behavorial Changes, No Bowel/Bladder ControlChng, No Confusion , No Dizziness, No Gait Disturbance, No Headaches, No Impaired Coord/balance, No Memory Loss, No Numbness/Tingling, No Seizures, No Speech Problems, No Tremors, No Visual Changes, No Weakness, No Other Skin: Yes Dry Skin; No Eczema, No Hair Changes, No Lumps, No Mole Changes, No Mottling, No Nail Changes, No Pruritus, No Rash, No Skin Lesion Changes, No Other, No Acne Physical Exam General: Alert, Cooperative, moderate distress HEENT: Mucous membr. moist/pink Lungs: Normal air movement Heart: no gallops, murmurs (3/6 SHEYLA, known to him) Rectal Exam: not examined Extremities: No edema, Normal pulses Skin: No significant lesion Neuro: Normal speech, Sensation intact, Cranial nerves 3-12 NL Psych/Mental Status: Mental status NL, Mood NL Vitals Vitals Vital Signs Date Time Temp Pulse Resp B/P (MAP) Pulse Ox O2 Delivery O2 Flow Rate FiO2 01/13/19 08:11 18 93 Nasal Cannula 2.0 01/13/19 07:00 99.1 115 183/91 (121) 99.1 Labs Labs Laboratory Tests Test 01/12/19 21:35 01/12/19 22:05 01/13/19 03:00 01/13/19 05:45 White Blood Count 9.3 x10^3/uL (4.0-11.0) Red Blood Count 4.93 x10^6/uL (4.30-5.70) Hemoglobin 9.4 g/dL (13.0-17.5) Hematocrit 31.7 % (39.0-53.0) Mean Corpuscular Volume 64 fL (79-100) Mean Corpuscular Hemoglobin 19 pg (25-35) Mean Corpuscular Hemoglobin Concent 30 g/dL (31-37) Red Cell Distribution Width 25.2 % (11.5-14.5) Platelet Count 409 x10^3/uL (140-400) Neutrophils (%) (Auto) 65 % (31-73) Lymphocytes (%) (Auto) 24 % (24-48) Monocytes (%) (Auto) 9 % (0-9) Eosinophils (%) (Auto) 0 % (0-3) Basophils (%) (Auto) 1 % (0-3) Neutrophils # (Auto) 6.0 x10^3uL (1.8-7.7) Lymphocytes # (Auto) 2.3 x10^3/uL (1.0-4.8) Monocytes # (Auto) 0.9 x10^3/uL (0.0-1.1) Eosinophils # (Auto) 0.0 x10^3/uL (0.0-0.7) Basophils # (Auto) 0.1 x10^3/uL (0.0-0.2) Platelet Estimate Increased (ADEQUATE) Giant Platelets Occ Polychromasia Slight Hypochromasia Marked Anisocytosis Marked Microcytosis Marked Macrocytosis Slight Target Cells Occ Tear Drop Cells Occ Ovalocytes Occ Prothrombin Time 14.3 SEC (11.7-14.0) Prothromb Time International Ratio 1.1 (0.8-1.1) D-Dimer (Thelma) 0.88 ug/mlFEU (0.00-0.50) Sodium Level 141 mmol/L (136-145) Potassium Level 3.8 mmol/L (3.5-5.1) Chloride Level 102 mmol/L (98-107) Carbon Dioxide Level 28 mmol/L (21-32) Anion Gap 11 (6-14) Blood Urea Nitrogen 32 mg/dL (8-26) Creatinine 2.4 mg/dL (0.7-1.3) Estimated GFR (Cockcroft-Gault) 34.7 BUN/Creatinine Ratio 13 (6-20) Glucose Level 92 mg/dL (70-99) Calcium Level 9.2 mg/dL (8.5-10.1) Magnesium Level 2.2 mg/dL (1.8-2.4) Total Bilirubin 0.5 mg/dL (0.2-1.0) Aspartate Amino Transf (AST/SGOT) 39 U/L (15-37) Alanine Aminotransferase (ALT/SGPT) 33 U/L (16-63) Alkaline Phosphatase 58 U/L (46-116) Creatine Kinase 508 U/L (39-308) Creatine Kinase MB (Mass) 5.4 ng/mL (0.0-3.6) Creatine Kinase MB Relative Index 1.1 % (0-4) Troponin I Quantitative 0.263 ng/mL (0.000-0.055) 0.271 ng/mL (0.000-0.055) 0.282 ng/mL (0.000-0.055) QB-Ors-F-Type Natriuretic Peptide 6846 pg/mL (0-124) Total Protein 6.9 g/dL (6.4-8.2) Albumin 3.2 g/dL (3.4-5.0) Albumin/Globulin Ratio 0.9 (1.0-1.7) Lipase 131 U/L (73-393) Triglycerides Level 89 mg/dL (0-150) Cholesterol Level 154 mg/dL (0-200) LDL Cholesterol, Calculated 102 mg/dL (0-100) VLDL Cholesterol, Calculated 18 mg/dL (0-40) Non-HDL Cholesterol Calculated 120 mg/dL (0-129) HDL Cholesterol 34 mg/dL (40-60) Cholesterol/HDL Ratio 4.5 Laboratory Tests Test 01/12/19 21:35 01/12/19 22:05 01/13/19 03:00 01/13/19 05:45 White Blood Count 9.3 x10^3/uL (4.0-11.0) Red Blood Count 4.93 x10^6/uL (4.30-5.70) Hemoglobin 9.4 g/dL (13.0-17.5) Hematocrit 31.7 % (39.0-53.0) Mean Corpuscular Volume 64 fL (79-100) Mean Corpuscular Hemoglobin 19 pg (25-35) Mean Corpuscular Hemoglobin Concent 30 g/dL (31-37) Red Cell Distribution Width 25.2 % (11.5-14.5) Platelet Count 409 x10^3/uL (140-400) Neutrophils (%) (Auto) 65 % (31-73) Lymphocytes (%) (Auto) 24 % (24-48) Monocytes (%) (Auto) 9 % (0-9) Eosinophils (%) (Auto) 0 % (0-3) Basophils (%) (Auto) 1 % (0-3) Neutrophils # (Auto) 6.0 x10^3uL (1.8-7.7) Lymphocytes # (Auto) 2.3 x10^3/uL (1.0-4.8) Monocytes # (Auto) 0.9 x10^3/uL (0.0-1.1) Eosinophils # (Auto) 0.0 x10^3/uL (0.0-0.7) Basophils # (Auto) 0.1 x10^3/uL (0.0-0.2) Platelet Estimate Increased (ADEQUATE) Giant Platelets Occ Polychromasia Slight Hypochromasia Marked Anisocytosis Marked Microcytosis Marked Macrocytosis Slight Target Cells Occ Tear Drop Cells Occ Ovalocytes Occ Prothrombin Time 14.3 SEC (11.7-14.0) Prothromb Time International Ratio 1.1 (0.8-1.1) D-Dimer (Thelma) 0.88 ug/mlFEU (0.00-0.50) Sodium Level 141 mmol/L (136-145) Potassium Level 3.8 mmol/L (3.5-5.1) Chloride Level 102 mmol/L (98-107) Carbon Dioxide Level 28 mmol/L (21-32) Anion Gap 11 (6-14) Blood Urea Nitrogen 32 mg/dL (8-26) Creatinine 2.4 mg/dL (0.7-1.3) Estimated GFR (Cockcroft-Gault) 34.7 BUN/Creatinine Ratio 13 (6-20) Glucose Level 92 mg/dL (70-99) Calcium Level 9.2 mg/dL (8.5-10.1) Magnesium Level 2.2 mg/dL (1.8-2.4) Total Bilirubin 0.5 mg/dL (0.2-1.0) Aspartate Amino Transf (AST/SGOT) 39 U/L (15-37) Alanine Aminotransferase (ALT/SGPT) 33 U/L (16-63) Alkaline Phosphatase 58 U/L (46-116) Creatine Kinase 508 U/L (39-308) Creatine Kinase MB (Mass) 5.4 ng/mL (0.0-3.6) Creatine Kinase MB Relative Index 1.1 % (0-4) Troponin I Quantitative 0.263 ng/mL (0.000-0.055) 0.271 ng/mL (0.000-0.055) 0.282 ng/mL (0.000-0.055) NS-Ljb-K-Type Natriuretic Peptide 6846 pg/mL (0-124) Total Protein 6.9 g/dL (6.4-8.2) Albumin 3.2 g/dL (3.4-5.0) Albumin/Globulin Ratio 0.9 (1.0-1.7) Lipase 131 U/L (73-393) Triglycerides Level 89 mg/dL (0-150) Cholesterol Level 154 mg/dL (0-200) LDL Cholesterol, Calculated 102 mg/dL (0-100) VLDL Cholesterol, Calculated 18 mg/dL (0-40) Non-HDL Cholesterol Calculated 120 mg/dL (0-129) HDL Cholesterol 34 mg/dL (40-60) Cholesterol/HDL Ratio 4.5 VTE Prophylaxis Ordered VTE Prophylaxis Devices: No VTE Pharmacological Prophylaxi: Yes Assessment/Plan Assessment/Plan Chest pain, angina HX CAD acute dyspnea CKD 3 o r4 recent hospitalization at [place], I have asked for records LAMIN BEARD MD Jan 13, 2019 09:09
[2019-01-13] MEDS ORDERED: LABETALOL 20 MG/4 ML DISP.SYRIN. IVP PRN (09:15)
[2019-01-13] MEDS ORDERED: NITROGLYCERIN SUBLINGUAL 0.4 MG BOTTLE OF 25. SL PRN (09:15)
[2019-01-13] MEDS ORDERED: METOPROLOL TART IMMED RELEASE 50 MG TABLET. PO ONE (09:30)
[2019-01-13] MEDS ORDERED: ALBUTEROL SULFATE 2.5 MG/3 ML NEBU. NEB PRN (09:30)
[2019-01-13] MEDS: PANTOPRAZOLE 40 MG TABLET.DR. PO SCH ×2 (10:10→16:35)
[2019-01-13] MEDS: ISOSORBIDE MONONITRATE ER 30 MG TAB.ER.24H PO SCH (10:11)
[2019-01-13] MEDS: FLUTICASONE 50MCG/NASAL SPRAY 16GM BOTTLE. NS SCH (10:11)
[2019-01-13] MEDS: CARVEDILOL 12.5 MG TABLET. PO SCH ×2 (10:11→16:35)
[2019-01-13] MEDS: CLOPIDOGREL BISULFATE 75 MG TABLET PO SCH (10:11)
--- NOTE | 2019-01-13 10:27 | PDOC2 ---
CONSULT Date of Consult Date of Consult DATE: 01/13/19 TIME: 10:16 Reason for Consult Reason for Consult: Heart failure Referring Physician Referring Physician: Dr. Ma Identification/Chief Complaint Chief Complaint Shortness of breath Source Source: Chart review, Patient History of Present Illness Reason for Visit: The patient is a 53-year-old male who presented to the emergency room with several days of shortness of breath and some left-sided chest discomfort. The patient had no acute ischemic EKG changes and a troponin of 0.282. He was treated for heart failure and feels better overnight. Patient was admitted to [place] 1 month ago with respiratory failure. Echocardiogram at that time showed an ejection fraction of 35% with moderate mitral regurgitation and a pulmonary artery pressure of greater than 50. VQ scan in September 2018 was low probability. Patient's drug screen on his last admission on 12/21/18 was positive for cocaine. At that the patient reported that he was being worked up for possible amyloidosis at . Since this last admission 4 weeks ago the patient apparently has been seen and admitted to [facility]. Past Medical History Cardiovascular: CAD, CHF, HTN, Hyperlipidemia, Other (possible amyloidosis) Pulmonary: Asthma, COPD CENTRAL NERVOUS SYSTEM: Other GI: No pertinent hx Heme/Onc: No pertinent hx Hepatobiliary: No pertinent hx Psych: No pertinent hx Musculoskeletal: Osteoarthritis Rheumatologic: No pertinent hx Infectious disease: No pertinent hx Renal/: Chronic renal insuff Endocrine: No pertinent hx Past Surgical History Past Surgical History: Tonsillectomy, Other (coronary stent.) Family History Family History: Hypertension Social History <1 pack per day ALCOHOL: none Drugs: Other (positive for cocaine screen one month ago as above) Lives: with Family Current Problem List Problem List Problems Medical Problems: (1) Chronic kidney disease Status: Acute (2) Elevated troponin I level Status: Acute Current Medications Current Medications Current Medications Aspirin (Nilson Aspirin) 325 mg 1X ONCE PO ; Start 01/12/19 at 22:00; Stop at 22:00; Status DC Sodium Chloride 1,000 ml @ 1,000 mls/hr 1X ONCE IV ; Start 01/12/19 at 22:00; Stop 01/12/19 at 22:00; Status DC Nitroglycerin (Nitro-Bid Oint) 1 inch 1X ONCE TP Last administered on at 22:03; Start 01/12/19 at 22:30; Stop 01/12/19 at 22:31; Status DC Fentanyl Citrate (Fentanyl 2ml Vial) 50 mcg 1X ONCE IV Last administered on 01/12/19at 22:10; Start 01/12/19 at 22:30; Stop 01/12/19 at 22:31; Status DC Fentanyl Citrate (Fentanyl 2ml Vial) 100 mcg [facility] ONCE .ROUTE ; Start at 21:50; Stop 01/12/19 at 21:51; Status DC Hydralazine HCl (Apresoline Inj) 20 mg 1X ONCE IVP Last administered on at 23:23; Start 01/12/19 at 23:00; Stop 01/12/19 at 23:01; Status DC Fentanyl Citrate (Fentanyl 2ml Vial) 50 mcg 1X ONCE IV Last administered on 01/12/19at 23:24; Start 01/12/19 at 23:30; Stop 01/12/19 at 23:31; Status DC Ondansetron HCl (Zofran) 4 mg PRN Q8HRS PRN IV NAUSEA/VOMITING 1ST CHOICE; Start 01/12/19 at 23:45; Stop 01/13/19 at 23:44 Fentanyl Citrate (Fentanyl 2ml Vial) 50 mcg PRN Q2HRS PRN IV SEVERE PAIN Last administered on 01/13/19at 08:11; Start 01/12/19 at 23:45; Stop 01/13/19 at 23:44 Metoprolol Tartrate (Lopressor) 50 mg 1X ONCE PO ; Start 01/13/19 at 09:30; Stop 01/13/19 at 09:31; Status Cancel Metoprolol Tartrate (Lopressor) 25 mg BID PO ; Start 01/13/19 at 21:00; Stop 01/13 at 21:00; Status DC Labetalol HCl (Normodyne Iv Push) 20 mg PRN Q2HR PRN IVP HYPERTENSION, SEE COMMENTS; Start 01/13/19 at 09:15 Nitroglycerin (Nitrostat) 0.4 mg PRN Q5MIN PRN SL CHEST PAIN; Start 01/13/19 at 09:15 Morphine Sulfate (Morphine Ir) 15 mg PRN Q4HRS PRN PO PAIN; Start 01/13/19 at 09 :15 Atorvastatin Calcium (Lipitor) 20 mg QHS PO ; Start 01/13/19 at 21:00 Carvedilol (Coreg) 25 mg BIDWMEALS PO ; Start 01/13/19 at 10:00 Clopidogrel Bisulfate (Plavix) 75 mg DAILY PO ; Start 01/13/19 at 10:00 Fluticasone Propionate (Flonase) 2 spray DAILY NS ; Start 01/13/19 at 10:00 Isosorbide Mononitrate (Imdur) 60 mg DAILY PO ; Start 01/13/19 at 10:00 Albuterol Sulfate (Ventolin Neb Soln) 2.5 mg PRN Q6HRS PRN NEB SHORTNESS OF BREATH; Start 01/13/19 at 09:30 Hydralazine HCl (Apresoline) 100 mg TID PO ; Start 01/13/19 at 10:00 Pantoprazole Sodium (Protonix) 40 mg BIDAC PO ; Start 01/13/19 at 10:00 Active Scripts Active [Pantoprazole] 40 MG Tablet.dr 40 Mg PO BIDAC Ventolin Hfa Inhaler (Albuterol Sulfate) 18 Gm Hfa.aer.ad 2 Puff INH Q4HRS 20 Days Furosemide 40 Mg Tablet 40 Mg PO DAILY 30 Days Carvedilol (Carvedilol) 12.5 Mg Tablet 25 Mg PO BIDWMEALS 30 Days Isosorbide Mononitrate Er (Isosorbide Mononitrate) 30 Mg Tab.er.24h 60 Mg PO DAILY 30 Days Hydralazine Hcl 50 Mg Tablet 100 Mg PO TID 30 Days Lipitor (Atorvastatin Calcium) 20 Mg Tablet 1 Tab PO DAILY Fluticasone Propionate Nasal Mckenzie (Fluticasone Propionate) 1 Mckenzie Mckenzie 2 Mckenzie NS DAILY Reported Clopidogrel (Clopidogrel Bisulfate) 75 Mg Tablet 1 Tab PO DAILY Amlodipine Besylate 10 Mg Tablet 10 Mg PO BID Allergies Allergies: Coded Allergies: lisinopril (Verified Allergy, Severe, Swelling, 08/09/18) caused throat swelling ROS General: YES: Fatigue Respiratory: YES: Shortness of breath, SOB with excertion Physical Exam General: No acute distress HEENT: Atraumatic Lungs: Other (decreased breath sounds) Heart: Regular rate Abdomen: Normal bowel sounds Vitals VITALS Vital Signs Date Time Temp Pulse Resp B/P (MAP) Pulse Ox O2 Delivery O2 Flow Rate FiO2 01/13/19 08:11 18 93 Nasal Cannula 2.0 01/13/19 07:00 99.1 115 183/91 (121) 99.1 Labs Labs Laboratory Tests Test 01/12/19 21:35 01/12/19 22:05 01/13/19 03:00 01/13/19 05:45 White Blood Count 9.3 x10^3/uL (4.0-11.0) Red Blood Count 4.93 x10^6/uL (4.30-5.70) Hemoglobin 9.4 g/dL (13.0-17.5) Hematocrit 31.7 % (39.0-53.0) Mean Corpuscular Volume 64 fL (79-100) Mean Corpuscular Hemoglobin 19 pg (25-35) Mean Corpuscular Hemoglobin Concent 30 g/dL (31-37) Red Cell Distribution Width 25.2 % (11.5-14.5) Platelet Count 409 x10^3/uL (140-400) Neutrophils (%) (Auto) 65 % (31-73) Lymphocytes (%) (Auto) 24 % (24-48) Monocytes (%) (Auto) 9 % (0-9) Eosinophils (%) (Auto) 0 % (0-3) Basophils (%) (Auto) 1 % (0-3) Neutrophils # (Auto) 6.0 x10^3uL (1.8-7.7) Lymphocytes # (Auto) 2.3 x10^3/uL (1.0-4.8) Monocytes # (Auto) 0.9 x10^3/uL (0.0-1.1) Eosinophils # (Auto) 0.0 x10^3/uL (0.0-0.7) Basophils # (Auto) 0.1 x10^3/uL (0.0-0.2) Platelet Estimate Increased (ADEQUATE) Giant Platelets Occ Polychromasia Slight Hypochromasia Marked Anisocytosis Marked Microcytosis Marked Macrocytosis Slight Target Cells Occ Tear Drop Cells Occ Ovalocytes Occ Prothrombin Time 14.3 SEC (11.7-14.0) Prothromb Time International Ratio 1.1 (0.8-1.1) D-Dimer (Thelma) 0.88 ug/mlFEU (0.00-0.50) Sodium Level 141 mmol/L (136-145) Potassium Level 3.8 mmol/L (3.5-5.1) Chloride Level 102 mmol/L (98-107) Carbon Dioxide Level 28 mmol/L (21-32) Anion Gap 11 (6-14) Blood Urea Nitrogen 32 mg/dL (8-26) Creatinine 2.4 mg/dL (0.7-1.3) Estimated GFR (Cockcroft-Gault) 34.7 BUN/Creatinine Ratio 13 (6-20) Glucose Level 92 mg/dL (70-99) Calcium Level 9.2 mg/dL (8.5-10.1) Magnesium Level 2.2 mg/dL (1.8-2.4) Total Bilirubin 0.5 mg/dL (0.2-1.0) Aspartate Amino Transf (AST/SGOT) 39 U/L (15-37) Alanine Aminotransferase (ALT/SGPT) 33 U/L (16-63) Alkaline Phosphatase 58 U/L (46-116) Creatine Kinase 508 U/L (39-308) Creatine Kinase MB (Mass) 5.4 ng/mL (0.0-3.6) Creatine Kinase MB Relative Index 1.1 % (0-4) Troponin I Quantitative 0.263 ng/mL (0.000-0.055) 0.271 ng/mL (0.000-0.055) 0.282 ng/mL (0.000-0.055) YK-Ise-K-Type Natriuretic Peptide 6846 pg/mL (0-124) Total Protein 6.9 g/dL (6.4-8.2) Albumin 3.2 g/dL (3.4-5.0) Albumin/Globulin Ratio 0.9 (1.0-1.7) Lipase 131 U/L (73-393) Triglycerides Level 89 mg/dL (0-150) Cholesterol Level 154 mg/dL (0-200) LDL Cholesterol, Calculated 102 mg/dL (0-100) VLDL Cholesterol, Calculated 18 mg/dL (0-40) Non-HDL Cholesterol Calculated 120 mg/dL (0-129) HDL Cholesterol 34 mg/dL (40-60) Cholesterol/HDL Ratio 4.5 Laboratory Tests Test 01/12/19 21:35 01/12/19 22:05 01/13/19 03:00 01/13/19 05:45 White Blood Count 9.3 x10^3/uL (4.0-11.0) Red Blood Count 4.93 x10^6/uL (4.30-5.70) Hemoglobin 9.4 g/dL (13.0-17.5) Hematocrit 31.7 % (39.0-53.0) Mean Corpuscular Volume 64 fL (79-100) Mean Corpuscular Hemoglobin 19 pg (25-35) Mean Corpuscular Hemoglobin Concent 30 g/dL (31-37) Red Cell Distribution Width 25.2 % (11.5-14.5) Platelet Count 409 x10^3/uL (140-400) Neutrophils (%) (Auto) 65 % (31-73) Lymphocytes (%) (Auto) 24 % (24-48) Monocytes (%) (Auto) 9 % (0-9) Eosinophils (%) (Auto) 0 % (0-3) Basophils (%) (Auto) 1 % (0-3) Neutrophils # (Auto) 6.0 x10^3uL (1.8-7.7) Lymphocytes # (Auto) 2.3 x10^3/uL (1.0-4.8) Monocytes # (Auto) 0.9 x10^3/uL (0.0-1.1) Eosinophils # (Auto) 0.0 x10^3/uL (0.0-0.7) Basophils # (Auto) 0.1 x10^3/uL (0.0-0.2) Platelet Estimate Increased (ADEQUATE) Giant Platelets Occ Polychromasia Slight Hypochromasia Marked Anisocytosis Marked Microcytosis Marked Macrocytosis Slight Target Cells Occ Tear Drop Cells Occ Ovalocytes Occ Prothrombin Time 14.3 SEC (11.7-14.0) Prothromb Time International Ratio 1.1 (0.8-1.1) D-Dimer (Thelma) 0.88 ug/mlFEU (0.00-0.50) Sodium Level 141 mmol/L (136-145) Potassium Level 3.8 mmol/L (3.5-5.1) Chloride Level 102 mmol/L (98-107) Carbon Dioxide Level 28 mmol/L (21-32) Anion Gap 11 (6-14) Blood Urea Nitrogen 32 mg/dL (8-26) Creatinine 2.4 mg/dL (0.7-1.3) Estimated GFR (Cockcroft-Gault) 34.7 BUN/Creatinine Ratio 13 (6-20) Glucose Level 92 mg/dL (70-99) Calcium Level 9.2 mg/dL (8.5-10.1) Magnesium Level 2.2 mg/dL (1.8-2.4) Total Bilirubin 0.5 mg/dL (0.2-1.0) Aspartate Amino Transf (AST/SGOT) 39 U/L (15-37) Alanine Aminotransferase (ALT/SGPT) 33 U/L (16-63) Alkaline Phosphatase 58 U/L (46-116) Creatine Kinase 508 U/L (39-308) Creatine Kinase MB (Mass) 5.4 ng/mL (0.0-3.6) Creatine Kinase MB Relative Index 1.1 % (0-4) Troponin I Quantitative 0.263 ng/mL (0.000-0.055) 0.271 ng/mL (0.000-0.055) 0.282 ng/mL (0.000-0.055) SM-Ill-A-Type Natriuretic Peptide 6846 pg/mL (0-124) Total Protein 6.9 g/dL (6.4-8.2) Albumin 3.2 g/dL (3.4-5.0) Albumin/Globulin Ratio 0.9 (1.0-1.7) Lipase 131 U/L (73-393) Triglycerides Level 89 mg/dL (0-150) Cholesterol Level 154 mg/dL (0-200) LDL Cholesterol, Calculated 102 mg/dL (0-100) VLDL Cholesterol, Calculated 18 mg/dL (0-40) Non-HDL Cholesterol Calculated 120 mg/dL (0-129) HDL Cholesterol 34 mg/dL (40-60) Cholesterol/HDL Ratio 4.5 Images Images Chest x-ray with mild bilateral airspace disease. Assessment/Plan Assessment/Plan 1. Acute on chronic systolic heart failure. Recent echocardiogram as noted above. Will diuresis and closely monitor. The patient apparently was more recently seen since his last admission here at [facility]. We'll attempt to obtain: Medical Center records as well as records. 2. Non-ST elevated myocardial infarction. Demand ischemia. Stent placement at in 2016 with a catheterization at in November 2017 with patent diagonal stent and mild disease in the LAD. 3. 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 HTN; controlled 5. Hyperlipidemia; statin 6. 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 Failed follow up and further w/u due to financial constraints of loss of ins. 7. CKD; CR stable per review 8. Hx of recent PUD/GI bleed 9. Hx of substance abuse; UDS + cocaine Thank you for allowing us to participate in the care of your patient. PHILIP DUNAWAY MD Jan 13, 2019 10:27
[2019-01-13 11:00] VITALS: BP 122/77
[2019-01-13] MEDS: IPRATRPIUM/ALBUTEROL 0.5/2.5MG 3 ML NEBU. NEB SCH ×3 (13:00→19:20)
[2019-01-13] MEDS: ENOXAPARIN 40 MG/0.4 ML SYRINGE. SQ SCH (14:24)
[2019-01-13 15:00] VITALS: BP 125/65
[2019-01-13 19:01] VITALS: BP 128/84
--- NOTE | 2019-01-13 20:34 | RAD ---
Ultrasound venous system of the lower extremities 01/13/2019. Reason for exam: Leg pain and swelling. Color Doppler and spectral waveform analysis was performed along with real-time grayscale technique. The deep venous system of both lower extremities shows normal compressibility and normal Doppler flow and augmentation of flow extending from the common femoral segment to the popliteal segment. The visualized calf veins also appear normal. IMPRESSION: No evidence of DVT. Electronically signed by: Og Wong Jr., MD (01/13/2019 8:31 PM) [facility]
[2019-01-13] MEDS ORDERED: METOPROLOL TART IMMED RELEASE 25 MG TABLET. PO SCH (21:00)
[2019-01-13] MEDS: ATORVASTATIN CALCIUM 20 MG TABLET PO SCH (21:16)
[2019-01-13 22:46] VITALS: BP 115/73
--- NOTE | 2019-01-14 01:49 | CONS ---
DATE OF CONSULTATION: REASON FOR CONSULTATION: Renal failure. HISTORY OF PRESENT ILLNESS: This is a 53-year-old gentleman who is admitted in setting of chest pain. He has known history of hypertension, coronary artery disease, congestive cardiomyopathy, COPD, chronic renal disease. The patient has been seen at [facility] in the past he states by Dr. Peters. Due to ongoing renal insufficiency, Nephrology evaluation requested. PAST MEDICAL HISTORY: Hypertension, hyperlipidemia, coronary artery disease, congestive cardiomyopathy, COPD, chronic kidney disease, degenerative arthritis, tonsillectomy. ALLERGIES: LISINOPRIL. MEDICATIONS: Reviewed per med list. FAMILY HISTORY: Noncontributory. SOCIAL HISTORY: The patient resides independently. Previous cocaine use. No alcohol use. Less than one pack cigarettes a day. REVIEW OF SYSTEMS: No headache, sinus problem, nasal drainage, epistaxis, change in vision or hearing. No difficulty swallowing. No fever, chills, cough, sputum production, hemoptysis. He states that he does get short of breath and has chest pain at times. No abdominal pain. No nausea, vomiting, diarrhea, seizures or malignancies. PHYSICAL EXAMINATION: GENERAL APPEARANCE: The patient awake, conversant. HEENT: Clear. NECK: No increased JVD. No thyromegaly, mass or adenopathy. LUNGS: Clear. CARDIAC: Without S3 or rub. ABDOMEN: Soft, nontender, no bruits. EXTREMITIES: Without edema. NEUROLOGIC: Nonfocal, ____. PSYCHIATRIC: Fair attention to detail, appropriate affect. LABORATORY DATA: Sodium 141, potassium 3.8, chloride 102, CO2 of 28, BUN 32, creatinine 2.4, GFR 34.7, mag 2.2. Hemoglobin 9.4, hematocrit 31.7. IMPRESSION: 1. Chronic kidney disease stage 3, likely secondary to hypertensive nephrosclerosis. 2. History of drug abuse -- would also raise the possibility of focal segmental glomerulosclerosis, had significant proteinuria. 3. History of coronary artery disease and cardiomyopathy with chest pain and shortness of breath. PLAN: 1. Ongoing cardiac evaluation. 2. We will follow renal function. Should maintain fluid balance as per cardiopulmonary demand. TONNY ROBLES MD DR: FRIDA/kathryn JOB#: [id number] / [id number]
[2019-01-14 02:53] VITALS: BP 126/61
[2019-01-14] MEDS: MORPHINE IR 15 MG TABLET PO PRN ×5 (03:13→21:37)
--- NOTE | 2019-01-14 03:57 | NUR ---
Pt refused to use the urinal overnight for this shift. He is going in the toilet. Pt reminded that there is a UA ordered and we need to collect a sample to test. Pt verbalizes understanding, but still refuses urinal.
--- NOTE | 2019-01-14 03:58 | NUR ---
I have reviewed the documentation, assessment and/or procedures by clinical nursing professor Aparna Valdez and concur with her documentation unless otherwise noted.
[2019-01-14 04:59] LABS: CALCIUM 8.6 mg/dL (8.5-10.1); GFR 42.8; MAGNESIUM 2.2 mg/dL (1.8-2.4); POTASSIUM 3.7 mmol/L (3.5-5.1)
--- NOTE | 2019-01-14 07:32 | PDOC ---
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 Uncontrolled hypertension. Coronary artery disease with previous percutaneous coronary intervention at [facility]. Secondary pulmonary hypertension. Paroxysmal supraventricular tachycardia. Chronic kidney disease stage 3 History of Present Illness History of Present Illness Mr. Blanton, 53 yo male w/ PMHx CHF, PUD w/ H. pylori, pulm HTN who p/w chest pain. Acute left sided chest pain with pressure and dyspnea x2 days. Also reports productive cough with "blood tinged" sputum x 1 month. Had no acute ischemic EKG changes and a troponin of 0.282. He was treated for heart failure and feels better overnight. Patient was admitted to [facility] 1 month ago with respiratory failure. Echocardiogram at that time showed an ejection fraction of 35% with moderate mitral regurgitation and a pulmonary artery pressure of greater than 50 (was intubated for respiratory failure with acute CHF at that time). VQ scan in September 2018 was low probability for PE, LE dopplers reveal no DVT. Patient's drug screen on his last admission on 12/21/18 was positive for cocaine. At that the patient reported that he was being worked up for possible amyloidosis at . Has a history of CAD s/p PCI/stent 06/2017 and recath at 2017 that showed patent diagonal stent with mild disease to LAD. 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 Patient has failed followup for further workup. He reports severe pain only better with IV pain meds Reports pain now worse. Denies trauma. Denies leg swelling or calf tenderness, but notes a hot red and painful right midfoot. No hx of gout A/P: F/u Cards recs CRP, sed rate, Uric acid. Start steroids for what appears to be a gout flare up Vitals Vitals Vital Signs Date Time Temp Pulse Resp B/P (MAP) Pulse Ox O2 Delivery O2 Flow Rate FiO2 01/14/19 04:13 20 Room Air 01/14/19 02:53 98.7 79 126/61 (82) 94 98.7 01/13/19 10:17 2.0 Physical Exam General: Alert, Cooperative, moderate distress Heart: Regular rate Lungs: Clear Abdomen: Normal bowel sounds Extremities: No edema, Normal pulses Skin: No significant lesion Labs LABS Laboratory Tests Test 01/13/19 10:35 01/14/19 03:05 Iron Level 16 ug/dL (65-175) Total Iron Binding Capacity 282 ug/dL (250-450) Iron Saturation 6 % (15-34) Sodium Level 144 mmol/L (136-145) Potassium Level 3.7 mmol/L (3.5-5.1) Chloride Level 107 mmol/L (98-107) Carbon Dioxide Level 29 mmol/L (21-32) Anion Gap 8 (6-14) Blood Urea Nitrogen 22 mg/dL (8-26) Creatinine 2.0 mg/dL (0.7-1.3) Estimated GFR (Cockcroft-Gault) 42.8 Glucose Level 114 mg/dL (70-99) Calcium Level 8.6 mg/dL (8.5-10.1) Magnesium Level 2.2 mg/dL (1.8-2.4) Assessment and Plan Assessmemt and Plan Problems Medical Problems: (1) Chronic kidney disease Status: Acute (2) Elevated troponin I level Status: Acute Comment Review of Relevant I have reviewed the following items coleman (where applicable) has been applied. Labs Laboratory Tests Test 01/12/19 21:35 01/12/19 22:05 01/13/19 03:00 01/13/19 05:45 White Blood Count 9.3 x10^3/uL (4.0-11.0) Red Blood Count 4.93 x10^6/uL (4.30-5.70) Hemoglobin 9.4 g/dL (13.0-17.5) Hematocrit 31.7 % (39.0-53.0) Mean Corpuscular Volume 64 fL (79-100) Mean Corpuscular Hemoglobin 19 pg (25-35) Mean Corpuscular Hemoglobin Concent 30 g/dL (31-37) Red Cell Distribution Width 25.2 % (11.5-14.5) Platelet Count 409 x10^3/uL (140-400) Neutrophils (%) (Auto) 65 % (31-73) Lymphocytes (%) (Auto) 24 % (24-48) Monocytes (%) (Auto) 9 % (0-9) Eosinophils (%) (Auto) 0 % (0-3) Basophils (%) (Auto) 1 % (0-3) Neutrophils # (Auto) 6.0 x10^3uL (1.8-7.7) Lymphocytes # (Auto) 2.3 x10^3/uL (1.0-4.8) Monocytes # (Auto) 0.9 x10^3/uL (0.0-1.1) Eosinophils # (Auto) 0.0 x10^3/uL (0.0-0.7) Basophils # (Auto) 0.1 x10^3/uL (0.0-0.2) Platelet Estimate Increased (ADEQUATE) Giant Platelets Occ Polychromasia Slight Hypochromasia Marked Anisocytosis Marked Microcytosis Marked Macrocytosis Slight Target Cells Occ Tear Drop Cells Occ Ovalocytes Occ Prothrombin Time 14.3 SEC (11.7-14.0) Prothromb Time International Ratio 1.1 (0.8-1.1) D-Dimer (Thelma) 0.88 ug/mlFEU (0.00-0.50) Sodium Level 141 mmol/L (136-145) Potassium Level 3.8 mmol/L (3.5-5.1) Chloride Level 102 mmol/L (98-107) Carbon Dioxide Level 28 mmol/L (21-32) Anion Gap 11 (6-14) Blood Urea Nitrogen 32 mg/dL (8-26) Creatinine 2.4 mg/dL (0.7-1.3) Estimated GFR (Cockcroft-Gault) 34.7 BUN/Creatinine Ratio 13 (6-20) Glucose Level 92 mg/dL (70-99) Calcium Level 9.2 mg/dL (8.5-10.1) Magnesium Level 2.2 mg/dL (1.8-2.4) Total Bilirubin 0.5 mg/dL (0.2-1.0) Aspartate Amino Transf (AST/SGOT) 39 U/L (15-37) Alanine Aminotransferase (ALT/SGPT) 33 U/L (16-63) Alkaline Phosphatase 58 U/L (46-116) Creatine Kinase 508 U/L (39-308) Creatine Kinase MB (Mass) 5.4 ng/mL (0.0-3.6) Creatine Kinase MB Relative Index 1.1 % (0-4) Troponin I Quantitative 0.263 ng/mL (0.000-0.055) 0.271 ng/mL (0.000-0.055) 0.282 ng/mL (0.000-0.055) ZQ-Lar-N-Type Natriuretic Peptide 6846 pg/mL (0-124) Total Protein 6.9 g/dL (6.4-8.2) Albumin 3.2 g/dL (3.4-5.0) Albumin/Globulin Ratio 0.9 (1.0-1.7) Lipase 131 U/L (73-393) Triglycerides Level 89 mg/dL (0-150) Cholesterol Level 154 mg/dL (0-200) LDL Cholesterol, Calculated 102 mg/dL (0-100) VLDL Cholesterol, Calculated 18 mg/dL (0-40) Non-HDL Cholesterol Calculated 120 mg/dL (0-129) HDL Cholesterol 34 mg/dL (40-60) Cholesterol/HDL Ratio 4.5 Test 01/13/19 10:35 01/14/19 03:05 Iron Level 16 ug/dL (65-175) Total Iron Binding Capacity 282 ug/dL (250-450) Iron Saturation 6 % (15-34) Sodium Level 144 mmol/L (136-145) Potassium Level 3.7 mmol/L (3.5-5.1) Chloride Level 107 mmol/L (98-107) Carbon Dioxide Level 29 mmol/L (21-32) Anion Gap 8 (6-14) Blood Urea Nitrogen 22 mg/dL (8-26) Creatinine 2.0 mg/dL (0.7-1.3) Estimated GFR (Cockcroft-Gault) 42.8 Glucose Level 114 mg/dL (70-99) Calcium Level 8.6 mg/dL (8.5-10.1) Magnesium Level 2.2 mg/dL (1.8-2.4) Laboratory Tests Test 01/13/19 10:35 01/14/19 03:05 Iron Level 16 ug/dL (65-175) Total Iron Binding Capacity 282 ug/dL (250-450) Iron Saturation 6 % (15-34) Sodium Level 144 mmol/L (136-145) Potassium Level 3.7 mmol/L (3.5-5.1) Chloride Level 107 mmol/L (98-107) Carbon Dioxide Level 29 mmol/L (21-32) Anion Gap 8 (6-14) Blood Urea Nitrogen 22 mg/dL (8-26) Creatinine 2.0 mg/dL (0.7-1.3) Estimated GFR (Cockcroft-Gault) 42.8 Glucose Level 114 mg/dL (70-99) Calcium Level 8.6 mg/dL (8.5-10.1) Magnesium Level 2.2 mg/dL (1.8-2.4) Medications Current Medications Aspirin (Nilson Aspirin) 325 mg 1X ONCE PO ; Start 01/12/19 at 22:00; Stop at 22:00; Status DC Sodium Chloride 1,000 ml @ 1,000 mls/hr 1X ONCE IV ; Start 01/12/19 at 22:00; Stop 01/12/19 at 22:00; Status DC Nitroglycerin (Nitro-Bid Oint) 1 inch 1X ONCE TP Last administered on at 22:03; Start 01/12/19 at 22:30; Stop 01/12/19 at 22:31; Status DC Fentanyl Citrate (Fentanyl 2ml Vial) 50 mcg 1X ONCE IV Last administered on 01/12/19at 22:10; Start 01/12/19 at 22:30; Stop 01/12/19 at 22:31; Status DC Fentanyl Citrate (Fentanyl 2ml Vial) 100 mcg STK-MED ONCE .ROUTE ; Start at 21:50; Stop 01/12/19 at 21:51; Status DC Hydralazine HCl (Apresoline Inj) 20 mg 1X ONCE IVP Last administered on at 23:23; Start 01/12/19 at 23:00; Stop 01/12/19 at 23:01; Status DC Fentanyl Citrate (Fentanyl 2ml Vial) 50 mcg 1X ONCE IV Last administered on 01/12/19at 23:24; Start 01/12/19 at 23:30; Stop 01/12/19 at 23:31; Status DC Ondansetron HCl (Zofran) 4 mg PRN Q8HRS PRN IV NAUSEA/VOMITING 1ST CHOICE; Start 01/12/19 at 23:45; Stop 01/13/19 at 23:44; Status DC Fentanyl Citrate (Fentanyl 2ml Vial) 50 mcg PRN Q2HRS PRN IV SEVERE PAIN Last administered on 01/13/19at 19:41; Start 01/12/19 at 23:45; Stop 01/13/19 at 23:44; Status DC Metoprolol Tartrate (Lopressor) 50 mg 1X ONCE PO ; Start 01/13/19 at 09:30; Stop 01/13/19 at 09:31; Status Cancel Metoprolol Tartrate (Lopressor) 25 mg BID PO ; Start 01/13/19 at 21:00; Stop 01/13 at 21:00; Status DC Labetalol HCl (Normodyne Iv Push) 20 mg PRN Q2HR PRN IVP HYPERTENSION, SEE COMMENTS; Start 01/13/19 at 09:15 Nitroglycerin (Nitrostat) 0.4 mg PRN Q5MIN PRN SL CHEST PAIN; Start 01/13/19 at 09:15 Morphine Sulfate (Morphine Ir) 15 mg PRN Q4HRS PRN PO PAIN Last administered on 01/14/19 03:13; Start 01/13/19 at 09:15 Atorvastatin Calcium (Lipitor) 20 mg QHS PO Last administered on 01/13/19 21:16 ; Start 01/13/19 at 21:00 Carvedilol (Coreg) 25 mg BIDWMEALS PO Last administered on 01/13/19 16:35; Start 01/13/19 at 10:00 Clopidogrel Bisulfate (Plavix) 75 mg DAILY PO Last administered on 01/13/19 10: 11; Start 01/13/19 at 10:00 Fluticasone Propionate (Flonase) 2 spray DAILY NS Last administered on 10:11; Start 01/13/19 at 10:00 Isosorbide Mononitrate (Imdur) 60 mg DAILY PO Last administered on 01/13/19 10: 11; Start 01/13/19 at 10:00 Albuterol Sulfate (Ventolin Neb Soln) 2.5 mg PRN Q6HRS PRN NEB SHORTNESS OF BREATH; Start 01/13/19 at 09:30 Hydralazine HCl (Apresoline) 100 mg TID PO Last administered on 01/13/19 21:16 ; Start 01/13/19 at 10:00 Pantoprazole Sodium (Protonix) 40 mg BIDAC PO Last administered on 01/13/19 16: 35; Start 01/13/19 at 10:00 Polysaccharide Iron Complex (Niferex 150) 150 mg DAILY PO ; Start 01/14/19 at 09: 00 Albuterol/ Ipratropium (Duoneb) 3 ml QID NEB Last administered on 01/13/19at 19: 20; Start 01/13/19 at 13:00 Enoxaparin Sodium (Lovenox Per Pharmacy Prophylaxis Dosing) 1 each PRN DAILY PRN MC SEE COMMENTS; Start 01/13/19 at 12:45 Enoxaparin Sodium (Lovenox 40mg Syringe) 40 mg DAILY SQ Last administered on 01/13/19at 14:24; Start 01/13/19 at 13:00 Lorazepam (Ativan) 1 mg ONCE ONCE IV Last administered on 01/13/19at 14:24; Start 01/13/19 at 12:45; Stop 01/13/19 at 12:46; Status DC Active Scripts Active [Pantoprazole] 40 MG Tablet.dr 40 Mg PO BIDAC Ventolin Hfa Inhaler (Albuterol Sulfate) 18 Gm Hfa.aer.ad 2 Puff INH Q4HRS 20 Days Furosemide 40 Mg Tablet 40 Mg PO DAILY 30 Days Carvedilol (Carvedilol) 12.5 Mg Tablet 25 Mg PO BIDWMEALS 30 Days Isosorbide Mononitrate Er (Isosorbide Mononitrate) 30 Mg Tab.er.24h 60 Mg PO DAILY 30 Days Hydralazine Hcl 50 Mg Tablet 100 Mg PO TID 30 Days Lipitor (Atorvastatin Calcium) 20 Mg Tablet 1 Tab PO DAILY Fluticasone Propionate Nasal [place] (Fluticasone Propionate) 1 [place] 2 [place] NS DAILY Reported Clopidogrel (Clopidogrel Bisulfate) 75 Mg Tablet 1 Tab PO DAILY Amlodipine Besylate 10 Mg Tablet 10 Mg PO BID Vitals/I & O Vital Sign - Last 24 Hours 01/13/19 01/13/19 01/13/19 01/13/19 08:00 08:11 10:11 10:11 Pulse 115 115 Resp 18 B/P (MAP) 183/91 183/91 Pulse Ox 93 O2 Delivery Nasal Cannula Nasal Cannula O2 Flow Rate 2.0 2.0 01/13/19 01/13/19 01/13/19 01/13/19 10:11 10:17 11:00 14:24 Temp 98.1 98.1 Pulse 115 91 91 Resp 20 B/P (MAP) 183/91 122/77 (92) 122/77 Pulse Ox 93 93 O2 Delivery Room Air O2 Flow Rate 2.0 01/13/19 01/13/19 01/13/19 01/13/19 15:00 15:48 16:35 19:01 Temp 98.1 98.9 98.1 98.9 Pulse 85 91 71 Resp 20 16 B/P (MAP) 125/65 (85) 122/77 128/84 (99) Pulse Ox 90 96 O2 Delivery Room Air Room Air Room Air 01/13/19 01/13/19 01/13/19 01/13/19 19:20 19:40 19:41 20:11 Resp 20 20 Pulse Ox 98 O2 Delivery Room Air Room Air Nasal Cannula 01/13/19 01/13/19 01/14/19 01/14/19 21:16 22:46 02:53 03:13 Temp 98.4 98.7 98.4 98.7 Pulse 71 72 79 Resp 16 18 20 B/P (MAP) 128/84 115/73 (87) 126/61 (82) Pulse Ox 94 94 O2 Delivery Room Air Room Air 01/14/19 04:13 Resp 20 O2 Delivery Room Air Intake and Output 01/13/19 01/13/19 01/14/19 14:59 22:59 06:59 Intake Total 120 ml 800 ml Balance 120 ml 800 ml SAIMA BEE MD Jan 14, 2019 07:32
[2019-01-14 07:35] VITALS: BP 152/100
[2019-01-14] MEDS: IPRATRPIUM/ALBUTEROL 0.5/2.5MG 3 ML NEBU. NEB SCH ×4 (08:08→19:50)
--- NOTE | 2019-01-14 08:12 | EKG ---
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
[2019-01-14] MEDS: PANTOPRAZOLE 40 MG TABLET.DR. PO SCH ×2 (08:19→17:42)
[2019-01-14] MEDS: ISOSORBIDE MONONITRATE ER 30 MG TAB.ER.24H PO SCH (08:19)
[2019-01-14] MEDS: CARVEDILOL 12.5 MG TABLET. PO SCH ×2 (08:20→17:42)
[2019-01-14] MEDS: IRON POLYSACCHARIDE COMPLEX 150 MG CAPSULE PO SCH (08:20)
[2019-01-14] MEDS: ENOXAPARIN 40 MG/0.4 ML SYRINGE. SQ SCH (08:20)
[2019-01-14] MEDS: CLOPIDOGREL BISULFATE 75 MG TABLET PO SCH (08:20)
[2019-01-14] MEDS: FLUTICASONE 50MCG/NASAL SPRAY 16GM BOTTLE. NS SCH (08:23)
--- NOTE | 2019-01-14 09:34 | RAD ---
Lung scan 01/13/2019 CLINICAL HISTORY: Chest pain with elevated d-dimer. TECHNIQUE: After the administration of 11 mCi of Xenon-133 gas, ventilation images of both lungs were obtained using the gamma camera. After the intravenous administration of 5.5 mCi of Technetium 99m MAA, perfusion images of both lungs were obtained using the gamma camera. FINDINGS: Comparison is made to PA and lateral chest radiographs dated 01/12/2019. These demonstrate mild cardiomegaly. Right lower lobe atelectasis and or infiltrate is seen. Fullness of the right hilum is noted. Additional comparison is made to a lung scan dated 10/09/2018. Diminished ventilation and perfusion to the left lower lobe is seen. This finding is unchanged. No unmatched perfusion defect is noted. These findings are consistent with a low probability study for pulmonary embolism. IMPRESSION: Low probability study. Electronically signed by: Forest Kebede MD (01/14/2019 9:31 AM) [id number]
--- NOTE | 2019-01-14 09:57 | PDOC ---
SUBJECTIVE ROS Stable OBJECTIVE Vital Signs Vital Signs Date Time Temp Pulse Resp B/P (MAP) Pulse Ox O2 Delivery O2 Flow Rate FiO2 01/14/19 09:26 16 Room Air 01/14/19 08:20 81 152/100 01/14/19 08:08 98 01/14/19 07:35 98.3 98.3 01/13/19 10:17 2.0 I & 0 Intake and Output 01/14/19 07:00 Intake Total 920 ml Balance 920 ml Intake Oral 920 ml # Voids 1 PHYSICAL EXAM Physical Exam General: NAD OM Moist Heart: Regular rate Lungs: Clear Abdomen: NT Extremities: No edema, Skin: No rash - No resendiz DIAGNOSIS/ASSESSMENT Assessment & Plan VITALIY -Cardiorenal Improving E-Lytes and acid base stable Chronic kidney disease stage 3, likely secondary to hypertensive nephrosclerosis Baseline 1.5-2.0 as per [facility] records Renal US in 2016 Mildly echogenic kidneys with an enlarged prostate History of drug abuse -- less likely focal segmental glomerulosclerosis, No Protein in UA , no Micr hematuria History of coronary artery disease and cardiomyopathy with chest pain and Anemia- Fe deficient As per primary 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 Acute hypoxemic respiratory failure secondary to acute diastolic heart failure. Uncontrolled hypertension- Renal Duplex 2016- No significant renal artery stenosis identified on duplex ultrasonography. Coronary artery disease with previous percutaneous coronary intervention at [facility]. COMMENT/RELEVANT DATA Meds Current Medications Medications (Trade) Dose Ordered Sig/Deepa Start Time Stop Time Status Last Admin Dose Admin Albuterol Sulfate (Ventolin Neb Soln) 2.5 mg PRN Q6HRS PRN 01/13/19 09:30 Albuterol/ Ipratropium (Duoneb) 3 ml QID 01/13/19 13:00 01/14/19 08:08 3 ML Aspirin (Nilson Aspirin) 325 mg 1X ONCE 01/12/19 22:00 01/12/19 22:00 DC Atorvastatin Calcium (Lipitor) 20 mg QHS 01/13/19 21:00 01/13/19 21:16 20 MG Carvedilol (Coreg) 25 mg BIDWMEALS 01/13/19 10:00 01/14/19 08:20 25 MG Clopidogrel Bisulfate (Plavix) 75 mg DAILY 01/13/19 10:00 01/14/19 08:20 75 MG Enoxaparin Sodium (Lovenox 40mg Syringe) 40 mg DAILY 01/13/19 13:00 01/14/19 08:20 40 MG Enoxaparin Sodium (Lovenox Per Pharmacy Prophylaxis Dosing) 1 each PRN DAILY PRN 01/13/19 12:45 Fentanyl Citrate (Fentanyl 2ml Vial) 50 mcg PRN Q2HRS PRN 01/12/19 23:45 01/13/19 23:44 DC 01/13/19 19:41 50 MCG Fluticasone Propionate (Flonase) 2 spray DAILY 01/13/19 10:00 01/14/19 08:23 2 SPRAY Hydralazine HCl (Apresoline Inj) 20 mg 1X ONCE 01/12/19 23:00 01/12/19 23:01 DC 01/12/19 23:23 20 MG Hydralazine HCl (Apresoline) 100 mg TID 01/13/19 10:00 01/14/19 08:20 100 MG Isosorbide Mononitrate (Imdur) 60 mg DAILY 01/13/19 10:00 01/14/19 08:19 60 MG Labetalol HCl (Normodyne Iv Push) 20 mg PRN Q2HR PRN 01/13/19 09:15 Lorazepam (Ativan) 1 mg ONCE ONCE 01/13/19 12:45 01/13/19 12:46 DC 01/13/19 14:24 1 MG Metoprolol Tartrate (Lopressor) 25 mg BID 01/13/19 21:00 01/13/19 21:00 DC Morphine Sulfate (Morphine Ir) 15 mg PRN Q4HRS PRN 01/13/19 09:15 01/14/19 08:21 15 MG Nitroglycerin (Nitro-Bid Oint) 1 inch 1X ONCE 01/12/19 22:30 01/12/19 22:31 DC 01/12/19 22:03 1 INCH Nitroglycerin (Nitrostat) 0.4 mg PRN Q5MIN PRN 01/13/19 09:15 Ondansetron HCl (Zofran) 4 mg PRN Q8HRS PRN 01/12/19 23:45 01/13/19 23:44 DC Pantoprazole Sodium (Protonix) 40 mg BIDAC 01/13/19 10:00 01/14/19 08:19 40 MG Polysaccharide Iron Complex (Niferex 150) 150 mg DAILY 01/14/19 09:00 01/14/19 08:20 150 MG Sodium Chloride 1,000 ml @ 1,000 mls/hr 1X ONCE 01/12/19 22:00 01/12/19 22:00 DC Lab Laboratory Tests Test 01/13/19 10:35 01/14/19 03:05 Iron Level 16 ug/dL (65-175) Total Iron Binding Capacity 282 ug/dL (250-450) Iron Saturation 6 % (15-34) Sodium Level 144 mmol/L (136-145) Potassium Level 3.7 mmol/L (3.5-5.1) Chloride Level 107 mmol/L (98-107) Carbon Dioxide Level 29 mmol/L (21-32) Anion Gap 8 (6-14) Blood Urea Nitrogen 22 mg/dL (8-26) Creatinine 2.0 mg/dL (0.7-1.3) Estimated GFR (Cockcroft-Gault) 42.8 Glucose Level 114 mg/dL (70-99) Calcium Level 8.6 mg/dL (8.5-10.1) Magnesium Level 2.2 mg/dL (1.8-2.4) Troponin I Quantitative 0.247 ng/mL (0.000-0.055) C-Reactive Protein, Quantitative 19.9 mg/L (0-3.3) Results All relevant outside records, renal labs, imaging studies, telemetry/EKG's were reviewed. MINDI RIOS MD Jan 14, 2019 09:57
[2019-01-14 11:00] VITALS: BP 117/73
[2019-01-14 12:12] LABS: BILIRUBIN,URINE NEGATIVE (NEG); CLARITY,URINE CLEAR; COLOR,URINE YELLOW; NITRITE,URINE NEGATIVE (NEG); PROTEIN,URINE NEGATIVE (NEG-TRACE)
[2019-01-14 12:14] LABS: BARBITURATES NEG (NEG); BENZODIAZEPINES NEG (NEG); CANNABINOIDS NEG (NEG); COCAINE NEG (NEG); METHADONE NEG (NEG); OPIATES NEG (NEG); PHENCYCLIDINE NEG (NEG)
[2019-01-14 12:15] LABS: AMPHETAMINE/METHAMPHETAMINE NEG (NEG)
[2019-01-14 12:23] LABS: BACTERIA,URINE MANY /HPF (0-FEW); SQUAMOUS EPITHELIAL CELL,UR MANY /LPF
--- NOTE | 2019-01-14 12:25 | NUR ---
SS following for discharge planning. SS reviewed pt chart. Pt is from home with spouse and is currently on room air. Pt is self pay pt. No discharge needs noted at this time. SS will continue to follow for pending discharge needs.
[2019-01-14 12:27] LABS: RBC,URINE OCC /HPF (0-2)
[2019-01-14 15:20] VITALS: BP 131/79
[2019-01-14] MEDS ORDERED: COLCHICINE 0.6 MG TABLET PO SCH (17:00)
--- NOTE | 2019-01-14 17:38 | PDOC ---
PROGRESS NOTES Subjective Subjective Patient seen and examined The patient is feeling mildly better today but still some chest discomfort. Objective Objective Vital Signs Date Time Temp Pulse Resp B/P (MAP) Pulse Ox O2 Delivery O2 Flow Rate FiO2 01/14/19 15:20 98.9 80 20 131/79 (96) 95 Room Air 98.9 01/14/19 12:36 2.0 Intake and Output 01/14/19 07:00 Intake Total 920 ml Balance 920 ml Intake Oral 920 ml # Voids 1 Physical Exam Abdomen: Normal bowel sounds Heart: Regular rate General: mild distress Lungs: Clear to auscultation Assessment Assessment Problems Medical Problems: (1) Chronic kidney disease Status: Acute (2) Elevated troponin I level Status: Acute Assessment/Plan 1. Acute on chronic systolic heart failure. Recent echocardiogram as noted above. slightly improved. The patient apparently was more recently seen since his last admission here at [facility]. We'll attempt to obtain records as well as records. 2. Non-ST elevated myocardial infarction. Demand ischemia. Stent placement at in 2016 with a catheterization at in November 2017 with patent diagonal stent and mild disease in the LAD. continued pain. Will monitor renal function. Consider MPI based on clinical course. 3. 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 HTN; controlled 5. Hyperlipidemia; statin 6. 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 Failed follow up and further w/u due to financial constraints of loss of ins. 7. CKD; CR stable per review 8. Hx of recent PUD/GI bleed 9. Hx of substance abuse; UDS + cocaine Comment Review of Relevant I have reviewed the following items coleman (where applicable) has been applied. Labs Laboratory Tests Test 01/12/19 21:35 01/12/19 22:05 01/13/19 03:00 01/13/19 05:45 White Blood Count 9.3 x10^3/uL (4.0-11.0) Red Blood Count 4.93 x10^6/uL (4.30-5.70) Hemoglobin 9.4 g/dL (13.0-17.5) Hematocrit 31.7 % (39.0-53.0) Mean Corpuscular Volume 64 fL (79-100) Mean Corpuscular Hemoglobin 19 pg (25-35) Mean Corpuscular Hemoglobin Concent 30 g/dL (31-37) Red Cell Distribution Width 25.2 % (11.5-14.5) Platelet Count 409 x10^3/uL (140-400) Neutrophils (%) (Auto) 65 % (31-73) Lymphocytes (%) (Auto) 24 % (24-48) Monocytes (%) (Auto) 9 % (0-9) Eosinophils (%) (Auto) 0 % (0-3) Basophils (%) (Auto) 1 % (0-3) Neutrophils # (Auto) 6.0 x10^3uL (1.8-7.7) Lymphocytes # (Auto) 2.3 x10^3/uL (1.0-4.8) Monocytes # (Auto) 0.9 x10^3/uL (0.0-1.1) Eosinophils # (Auto) 0.0 x10^3/uL (0.0-0.7) Basophils # (Auto) 0.1 x10^3/uL (0.0-0.2) Platelet Estimate Increased (ADEQUATE) Giant Platelets Occ Polychromasia Slight Hypochromasia Marked Anisocytosis Marked Microcytosis Marked Macrocytosis Slight Target Cells Occ Tear Drop Cells Occ Ovalocytes Occ Prothrombin Time 14.3 SEC (11.7-14.0) Prothromb Time International Ratio 1.1 (0.8-1.1) D-Dimer (Thelma) 0.88 ug/mlFEU (0.00-0.50) Sodium Level 141 mmol/L (136-145) Potassium Level 3.8 mmol/L (3.5-5.1) Chloride Level 102 mmol/L (98-107) Carbon Dioxide Level 28 mmol/L (21-32) Anion Gap 11 (6-14) Blood Urea Nitrogen 32 mg/dL (8-26) Creatinine 2.4 mg/dL (0.7-1.3) Estimated GFR (Cockcroft-Gault) 34.7 BUN/Creatinine Ratio 13 (6-20) Glucose Level 92 mg/dL (70-99) Calcium Level 9.2 mg/dL (8.5-10.1) Magnesium Level 2.2 mg/dL (1.8-2.4) Total Bilirubin 0.5 mg/dL (0.2-1.0) Aspartate Amino Transf (AST/SGOT) 39 U/L (15-37) Alanine Aminotransferase (ALT/SGPT) 33 U/L (16-63) Alkaline Phosphatase 58 U/L (46-116) Creatine Kinase 508 U/L (39-308) Creatine Kinase MB (Mass) 5.4 ng/mL (0.0-3.6) Creatine Kinase MB Relative Index 1.1 % (0-4) Troponin I Quantitative 0.263 ng/mL (0.000-0.055) 0.271 ng/mL (0.000-0.055) 0.282 ng/mL (0.000-0.055) SN-Igk-H-Type Natriuretic Peptide 6846 pg/mL (0-124) Total Protein 6.9 g/dL (6.4-8.2) Albumin 3.2 g/dL (3.4-5.0) Albumin/Globulin Ratio 0.9 (1.0-1.7) Lipase 131 U/L (73-393) Triglycerides Level 89 mg/dL (0-150) Cholesterol Level 154 mg/dL (0-200) LDL Cholesterol, Calculated 102 mg/dL (0-100) VLDL Cholesterol, Calculated 18 mg/dL (0-40) Non-HDL Cholesterol Calculated 120 mg/dL (0-129) HDL Cholesterol 34 mg/dL (40-60) Cholesterol/HDL Ratio 4.5 Test 01/13/19 10:35 01/14/19 03:05 01/14/19 09:00 01/14/19 12:00 Iron Level 16 ug/dL (65-175) Total Iron Binding Capacity 282 ug/dL (250-450) Iron Saturation 6 % (15-34) Sodium Level 144 mmol/L (136-145) Potassium Level 3.7 mmol/L (3.5-5.1) Chloride Level 107 mmol/L (98-107) Carbon Dioxide Level 29 mmol/L (21-32) Anion Gap 8 (6-14) Blood Urea Nitrogen 22 mg/dL (8-26) Creatinine 2.0 mg/dL (0.7-1.3) Estimated GFR (Cockcroft-Gault) 42.8 Glucose Level 114 mg/dL (70-99) Calcium Level 8.6 mg/dL (8.5-10.1) Magnesium Level 2.2 mg/dL (1.8-2.4) Troponin I Quantitative 0.247 ng/mL (0.000-0.055) C-Reactive Protein, Quantitative 19.9 mg/L (0-3.3) Erythrocyte Sedimentation Rate 22 (0-15) Urine Collection Type Unknown Urine Color Yellow Urine Clarity Clear Urine pH 6.[address] [place] 1.025 Urine Protein Negative mg/dL (NEG-TRACE) Urine Glucose (UA) Negative mg/dL (NEG) Urine Ketones (Stick) Negative mg/dL (NEG) Urine Blood Negative (NEG) Urine Nitrite Negative (NEG) Urine Bilirubin Negative (NEG) Urine Urobilinogen Dipstick 1.0 mg/dL (0.2 mg/dL) Urine Leukocyte Esterase Negative (NEG) Urine RBC Occ /HPF (0-2) Urine WBC 1-4 /HPF (0-4) Urine Squamous Epithelial Cells Many /LPF Urine Bacteria Many /HPF (0-FEW) Urine Mucus Marked /LPF Laboratory Tests Test 01/14/19 03:05 01/14/19 09:00 01/14/19 12:00 Sodium Level 144 mmol/L (136-145) Potassium Level 3.7 mmol/L (3.5-5.1) Chloride Level 107 mmol/L (98-107) Carbon Dioxide Level 29 mmol/L (21-32) Anion Gap 8 (6-14) Blood Urea Nitrogen 22 mg/dL (8-26) Creatinine 2.0 mg/dL (0.7-1.3) Estimated GFR (Cockcroft-Gault) 42.8 Glucose Level 114 mg/dL (70-99) Calcium Level 8.6 mg/dL (8.5-10.1) Magnesium Level 2.2 mg/dL (1.8-2.4) Troponin I Quantitative 0.247 ng/mL (0.000-0.055) C-Reactive Protein, Quantitative 19.9 mg/L (0-3.3) Erythrocyte Sedimentation Rate 22 (0-15) Urine Collection Type Unknown Urine Color Yellow Urine Clarity Clear Urine pH 6.[address] [place] 1.025 Urine Protein Negative mg/dL (NEG-TRACE) Urine Glucose (UA) Negative mg/dL (NEG) Urine Ketones (Stick) Negative mg/dL (NEG) Urine Blood Negative (NEG) Urine Nitrite Negative (NEG) Urine Bilirubin Negative (NEG) Urine Urobilinogen Dipstick 1.0 mg/dL (0.2 mg/dL) Urine Leukocyte Esterase Negative (NEG) Urine RBC Occ /HPF (0-2) Urine WBC 1-4 /HPF (0-4) Urine Squamous Epithelial Cells Many /LPF Urine Bacteria Many /HPF (0-FEW) Urine Mucus Marked /LPF Medications Current Medications Aspirin (Nilson Aspirin) 325 mg 1X ONCE PO ; Start 01/12/19 at 22:00; Stop at 22:00; Status DC Sodium Chloride 1,000 ml @ 1,000 mls/hr 1X ONCE IV ; Start 01/12/19 at 22:00; Stop 01/12/19 at 22:00; Status DC Nitroglycerin (Nitro-Bid Oint) 1 inch 1X ONCE TP Last administered on at 22:03; Start 01/12/19 at 22:30; Stop 01/12/19 at 22:31; Status DC Fentanyl Citrate (Fentanyl 2ml Vial) 50 mcg 1X ONCE IV Last administered on 01/12/19at 22:10; Start 01/12/19 at 22:30; Stop 01/12/19 at 22:31; Status DC Fentanyl Citrate (Fentanyl 2ml Vial) 100 mcg STK-MED ONCE .ROUTE ; Start at 21:50; Stop 01/12/19 at 21:51; Status DC Hydralazine HCl (Apresoline Inj) 20 mg 1X ONCE IVP Last administered on at 23:23; Start 01/12/19 at 23:00; Stop 01/12/19 at 23:01; Status DC Fentanyl Citrate (Fentanyl 2ml Vial) 50 mcg 1X ONCE IV Last administered on 01/12/19at 23:24; Start 01/12/19 at 23:30; Stop 01/12/19 at 23:31; Status DC Ondansetron HCl (Zofran) 4 mg PRN Q8HRS PRN IV NAUSEA/VOMITING 1ST CHOICE; Start 01/12/19 at 23:45; Stop 01/13/19 at 23:44; Status DC Fentanyl Citrate (Fentanyl 2ml Vial) 50 mcg PRN Q2HRS PRN IV SEVERE PAIN Last administered on 01/13/19at 19:41; Start 01/12/19 at 23:45; Stop 01/13/19 at 23:44; Status DC Metoprolol Tartrate (Lopressor) 50 mg 1X ONCE PO ; Start 01/13/19 at 09:30; Stop 01/13/19 at 09:31; Status Cancel Metoprolol Tartrate (Lopressor) 25 mg BID PO ; Start 01/13/19 at 21:00; Stop 01/13 at 21:00; Status DC Labetalol HCl (Normodyne Iv Push) 20 mg PRN Q2HR PRN IVP HYPERTENSION, SEE COMMENTS; Start 01/13/19 at 09:15 Nitroglycerin (Nitrostat) 0.4 mg PRN Q5MIN PRN SL CHEST PAIN; Start 01/13/19 at 09:15 Morphine Sulfate (Morphine Ir) 15 mg PRN Q4HRS PRN PO PAIN Last administered on 01/14/19at 12:36; Start 01/13/19 at 09:15 Atorvastatin Calcium (Lipitor) 20 mg QHS PO Last administered on 01/13/19 21:16 ; Start 01/13/19 at 21:00 Carvedilol (Coreg) 25 mg BIDWMEALS PO Last administered on 01/14/19 08:20; Start 01/13/19 at 10:00 Clopidogrel Bisulfate (Plavix) 75 mg DAILY PO Last administered on 01/14/19 08: 20; Start 01/13/19 at 10:00 Fluticasone Propionate (Flonase) 2 spray DAILY NS Last administered on 08:23; Start 01/13/19 at 10:00 Isosorbide Mononitrate (Imdur) 60 mg DAILY PO Last administered on 01/14/19 08: 19; Start 01/13/19 at 10:00 Albuterol Sulfate (Ventolin Neb Soln) 2.5 mg PRN Q6HRS PRN NEB SHORTNESS OF BREATH; Start 01/13/19 at 09:30 Hydralazine HCl (Apresoline) 100 mg TID PO Last administered on 01/14/19 15:11 ; Start 01/13/19 at 10:00 Pantoprazole Sodium (Protonix) 40 mg BIDAC PO Last administered on 01/14/19 08: 19; Start 01/13/19 at 10:00 Polysaccharide Iron Complex (Niferex 150) 150 mg DAILY PO Last administered on 01/14/19at 08:20; Start 01/14/19 at 09:00 Albuterol/ Ipratropium (Duoneb) 3 ml QID NEB Last administered on 01/14/19at 11: 22; Start 01/13/19 at 13:00 Enoxaparin Sodium (Lovenox Per Pharmacy Prophylaxis Dosing) 1 each PRN DAILY PRN MC SEE COMMENTS; Start 01/13/19 at 12:45 Enoxaparin Sodium (Lovenox 40mg Syringe) 40 mg DAILY SQ Last administered on 01/14/19at 08:20; Start 01/13/19 at 13:00 Lorazepam (Ativan) 1 mg ONCE ONCE IV Last administered on 01/13/19at 14:24; Start 01/13/19 at 12:45; Stop 01/13/19 at 12:46; Status DC Methylprednisolone Sodium Succinate (SOLU-Medrol 40MG VIAL) 40 mg Q12HR IV ; Start 01/14/19 at 21:00 Colchicine (Colcrys) 0.6 mg DAILY PO ; Start 01/14/19 at 17:00; Stop 01/14/19 at 17:22; Status DC Active Scripts Active [Pantoprazole] 40 MG Tablet.dr 40 Mg PO BIDAC Ventolin Hfa Inhaler (Albuterol Sulfate) 18 Gm Hfa.aer.ad 2 Puff INH Q4HRS 20 Days Furosemide 40 Mg Tablet 40 Mg PO DAILY 30 Days Carvedilol (Carvedilol) 12.5 Mg Tablet 25 Mg PO BIDWMEALS 30 Days Isosorbide Mononitrate Er (Isosorbide Mononitrate) 30 Mg Tab.er.24h 60 Mg PO DAILY 30 Days Hydralazine Hcl 50 Mg Tablet 100 Mg PO TID 30 Days Lipitor (Atorvastatin Calcium) 20 Mg Tablet 1 Tab PO DAILY Fluticasone Propionate Nasal [place] (Fluticasone Propionate) 1 [place] Pa[place] 2 [place] NS DAILY Reported Clopidogrel (Clopidogrel Bisulfate) 75 Mg Tablet 1 Tab PO DAILY Amlodipine Besylate 10 Mg Tablet 10 Mg PO BID Vitals/I & O Vital Sign - Last 24 Hours 01/13/19 01/13/19 01/13/19 01/13/19 19:01 19:20 19:40 19:41 Temp 98.9 98.9 Pulse 71 Resp 16 20 B/P (MAP) 128/84 (99) Pulse Ox 96 98 O2 Delivery Room Air Room Air Room Air 01/13/19 01/13/19 01/13/19 01/14/19 20:11 21:16 22:46 02:53 Temp 98.4 98.7 98.4 98.7 Pulse 71 72 79 Resp 20 16 18 B/P (MAP) 128/84 115/73 (87) 126/61 (82) Pulse Ox 94 94 O2 Delivery Nasal Cannula Room Air Room Air 01/14/19 01/14/19 01/14/19 01/14/19 03:13 07:35 08:00 08:08 Temp 98.3 98.3 Pulse 81 Resp 20 10 B/P (MAP) 152/100 (117) Pulse Ox 96 98 O2 Delivery Room Air Room Air Room Air 01/14/19 01/14/19 01/14/19 01/14/19 08:19 08:20 08:20 08:21 Pulse 81 81 81 Resp 16 B/P (MAP) 152/100 152/100 152/100 O2 Delivery Room Air 01/14/19 01/14/19 01/14/19 01/14/19 11:00 11:22 12:36 13:36 Temp 99.0 99.0 Pulse 76 Resp 20 18 18 B/P (MAP) 117/73 (88) Pulse Ox 97 97 97 O2 Delivery Room Air Room Air Room Air Room Air O2 Flow Rate 2.0 01/14/19 01/14/19 15:11 15:20 Temp 98.9 98.9 Pulse 76 80 Resp 20 B/P (MAP) 117/73 131/79 (96) Pulse Ox 95 O2 Delivery Room Air Intake and Output 01/13/19 01/13/19 01/14/19 15:00 23:00 07:00 Intake Total 120 ml 800 ml Balance 120 ml 800 ml PHILIP DUNAWAY MD Jan 14, 2019 17:38
[2019-01-14 19:20] VITALS: BP 123/80
[2019-01-14] MEDS: ATORVASTATIN CALCIUM 20 MG TABLET PO SCH (21:13)
[2019-01-14] MEDS: methylPREDNISolone SOD SUCC PF 40 MG/ML VIAL. IV SCH (21:14)
[2019-01-14 22:12] VITALS: BP 127/77
[2019-01-15 02:16] VITALS: BP 153/98
[2019-01-15] MEDS: MORPHINE IR 15 MG TABLET PO PRN ×4 (02:26→19:59)
[2019-01-15 03:30] LABS: BASO % 1 % (0-3); EOS % 0 % (0-3); HEMATOCRIT 26.7 % (39.0-53.0); HEMOGLOBIN 7.9 g/dL (13.0-17.5); LYMPH # 0.4 x10^3/uL (1.0-4.8); LYMPH % 8 % (24-48); MEAN CORPUSCULAR HEMOGLOBIN 19 pg (25-35); MEAN CORPUSCULAR HGB CONC 30 g/dL (31-37); MEAN CORPUSCULAR VOLUME 65 fL (79-100); MONO # 0.1 x10^3/uL (0.0-1.1); MONO % 2 % (0-9); NEUT # 4.8 x10^3uL (1.8-7.7); NEUT % 90 % (31-73); PLATELET COUNT 270 x10^3/uL (140-400); RED BLOOD COUNT 4.11 x10^6/uL (4.30-5.70); RED CELL DISTRIBUTION WIDTH 24.4 % (11.5-14.5); WHITE BLOOD COUNT 5.3 x10^3/uL (4.0-11.0)
[2019-01-15 03:48] LABS: CALCIUM 7.9 mg/dL (8.5-10.1); CREATININE 2.1 mg/dL (0.7-1.3); GFR 40.5; POTASSIUM 4.8 mmol/L (3.5-5.1); URIC ACID 7.9 mg/dL (3.5-7.2)
[2019-01-15 07:19] LABS: % BANDS 1 % (0-9); % LYMPHS 13 % (24-48); % MONOS 1 % (0-10); % SEGS 85 % (35-66); ANISOCYTOSIS MOD; PLT ESTIMATE ADEQUATE (ADEQUATE); POLYCHROMASIA PRESENT
[2019-01-15 07:20] VITALS: BP 165/98
[2019-01-15 07:20] LABS: OVALOCYTES OCC; TARGET CELLS FEW
[2019-01-15] MEDS: IPRATRPIUM/ALBUTEROL 0.5/2.5MG 3 ML NEBU. NEB SCH ×4 (08:01→19:22)
[2019-01-15] MEDS ORDERED: REGADENOSON 0.4 MG/5 ML DISP.SYRIN. IV ONE (08:30)
[2019-01-15 11:00] VITALS: BP 158/109
[2019-01-15] MEDS: IRON POLYSACCHARIDE COMPLEX 150 MG CAPSULE PO SCH (11:09)
[2019-01-15] MEDS: CARVEDILOL 12.5 MG TABLET. PO SCH ×2 (11:10→17:29)
[2019-01-15] MEDS: CLOPIDOGREL BISULFATE 75 MG TABLET PO SCH (11:10)
[2019-01-15] MEDS: PANTOPRAZOLE 40 MG TABLET.DR. PO SCH ×2 (11:10→17:28)
[2019-01-15] MEDS: methylPREDNISolone SOD SUCC PF 40 MG/ML VIAL. IV SCH ×2 (11:10→19:59)
[2019-01-15] MEDS: ISOSORBIDE MONONITRATE ER 30 MG TAB.ER.24H PO SCH (11:11)
[2019-01-15] MEDS: ENOXAPARIN 40 MG/0.4 ML SYRINGE. SQ SCH (11:12)
[2019-01-15] MEDS: FLUTICASONE 50MCG/NASAL SPRAY 16GM BOTTLE. NS SCH (11:13)
--- NOTE | 2019-01-15 13:23 | RAD ---
MR#: [id number] Date of Study: 01/15/2019 Ordering Physician: PHILIP DUNAWAY, Referring Physician: SOHAN RIVERA Tech: NICOLE Stallworth ARRT (R) (N) APPROVED REPORT Test Type: Pharmacological Stress Nurse/Tech: Chalo Nolasco RN Test Indications: CP, SOA Cardiac History: ND, PTCA, HTN Medications: See EMR Medical History: COPD, kidney disease, smoker (2 cigarettes/day), CVA Resting ECG: SR Resting Heart Rate: 78 bpm Resting Blood Pressure: 165/114mmHg Pretest Chest Pain: Typical angina Nurse/Tech Notes S1 S2. Lung sounds clear. Pt c/o 3/10 CP prior to dosing. Consent: The procedure was explained to the patient in lay terms. Informed consent was witnessed. Naveen eout was entered into [employer]. History and Stress Test performed by RT Teofilo (R) (N) Pharm. Details Pharmacologic stress testing was performed using 0.4mg per 5ml of regadenoson given intravenously ove r 7-10 seconds. Stress Symptoms Pt c/o 3/10 dull CP prior to dosing. States this is constant. At stage R at 00:55 CP 5/10 with no EKG changes. Stage R at 04:55 CP 4/10. CP back to baseline by end of stress test. POST EXERCISE Reason for Termination: Infusion complete Max HR: 91 bpm Max Blood Pressure: 156/107mmHg Chest Pain: Yes. see stress symptoms Arrhythmia: No. few PVC's ST Change: No. INTERPRETATION Stress EKG Conclusion: No evidence of stress induced EKG changes. Imaging Protocol IMAGE PROTOCOL: Rest Tc-99m/stress Tc-99m 1 day Rest: Stress: Viability: Radiopharm.Tc99m [id number] Sestamibi [id number] 33mCi Img Date 01/15/2019 01/15/2019 Inj-Img [id number]. 60min. Rest Admin Site:IV - Left AntecubitalAdministrator:NICOLE Stallworth ARRT (R)(N) Stress Admin Site: IV - Left AntecubitalAdministrator: Chuy Mendez, RT (R)(N) STRESS DATA End Diast. Vol.262.0mlLVEDV index QYG046.0ml End Syst. Vol.178.0mlLVESV index BSA82.0ml Myocardial Dmon945.0gEject. Whpnckee07.0% Stress Scores Regional WT2.00Summed WT44.00 Regional WM1.00Summed WM25.00 LV Perfusion There is a large sized, predominantly FIXED lateral wall defect with mild estephanie-infarct reversibility. Wall Motion There is severe LV dysfunction. EF 30% LV Perf. Quant 17 Seg. SSS13.00 17 Seg. SRS13.00 17 Seg. SDS0.00 Stress Defect Extent (% LAD)0.00Rest Defect Extent (% LAD)0.00Rev. Defect Extent (% LAD)0.00 Stress Defect Extent (% LCX) 91.30Rest Defect Extent (% LCX)82.50Rev. Defect Extent (% LCX)8.80 Stress Defect Extent (% RCA)0.00Rest Defect Extent (% RCA)0.00Rev. Defect Extent (% RCA)0.00 Stress Defect Extent (% JANN)22.60Rest Defect Extent (% JANN)20.40Rev. Defect Extent (% JANN)1.50 Other Information Quality:Fair Risk Assessment: High Risk Conclusion 1. No evidence of stress induced EKG changes. 2. Large lateral wall defect with mild estephanie-infarct reversibility. 3. Severe LV dysfunction. EF 31% 4. High risk study. Signed by : Sergio Caro, Electronically Approved : 01/15/2019 13:23:24
--- NOTE | 2019-01-15 14:30 | PDOC ---
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 Uncontrolled hypertension. Coronary artery disease with previous percutaneous coronary intervention at [facility]. Secondary pulmonary hypertension. Paroxysmal supraventricular tachycardia. Chronic kidney disease stage 3 History of Present Illness History of Present Illness Mr. Blanton, 53 yo male w/ PMHx CHF, PUD w/ H. pylori, pulm HTN who p/w chest pain. Acute left sided chest pain with pressure and dyspnea x2 days. Also reports productive cough with "blood tinged" sputum x 1 month. Had no acute ischemic EKG changes and a troponin of 0.282. He was treated for heart failure and feels better overnight. Patient was admitted to [facility] 1 month ago with respiratory failure. Echocardiogram at that time showed an ejection fraction of 35% with moderate mitral regurgitation and a pulmonary artery pressure of greater than 50 (was intubated for respiratory failure with acute CHF at that time). VQ scan in September 2018 was low probability for PE, LE dopplers reveal no DVT. Patient's drug screen on his last admission on 12/21/18 was positive for cocaine. At that the patient reported that he was being worked up for possible amyloidosis at . Has a history of CAD s/p PCI/stent 06/2017 and recath at 2017 that showed patent diagonal stent with mild disease to LAD. 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 Patient has failed followup for further workup. He reports severe pain only better with IV pain meds Reports pain now worse. Denies trauma. Denies leg swelling or calf tenderness, but notes a hot red and painful right midfoot. No hx of gout. Started on IV steroids with improvement. Nuc stress today shows high risk study. 1. No evidence of stress induced EKG changes. 2. Large lateral wall defect with mild estephanie-infarct reversibility. 3. Severe LV dysfunction. EF 31% 4. High risk study. A/P: F/u Cards recs CRP, sed rate, Uric acid. 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 with his high risk study and elevated troponin Vitals Vitals Vital Signs Date Time Temp Pulse Resp B/P (MAP) Pulse Ox O2 Delivery O2 Flow Rate FiO2 01/15/19 12:12 18 98 Room Air 2.0 01/15/19 11:11 81 165/98 01/15/19 11:00 98.2 98.2 Physical Exam General: mild distress Heart: Regular rate Lungs: Clear Abdomen: Normal bowel sounds Extremities: No edema, Normal pulses Skin: No significant lesion Labs LABS Laboratory Tests Test 01/15/19 03:10 White Blood Count 5.3 x10^3/uL (4.0-11.0) Red Blood Count 4.11 x10^6/uL (4.30-5.70) Hemoglobin 7.9 g/dL (13.0-17.5) Hematocrit 26.7 % (39.0-53.0) Mean Corpuscular Volume 65 fL (79-100) Mean Corpuscular Hemoglobin 19 pg (25-35) Mean Corpuscular Hemoglobin Concent 30 g/dL (31-37) Red Cell Distribution Width 24.4 % (11.5-14.5) Platelet Count 270 x10^3/uL (140-400) Neutrophils (%) (Auto) 90 % (31-73) Lymphocytes (%) (Auto) 8 % (24-48) Monocytes (%) (Auto) 2 % (0-9) Eosinophils (%) (Auto) 0 % (0-3) Basophils (%) (Auto) 1 % (0-3) Neutrophils # (Auto) 4.8 x10^3uL (1.8-7.7) Lymphocytes # (Auto) 0.4 x10^3/uL (1.0-4.8) Monocytes # (Auto) 0.1 x10^3/uL (0.0-1.1) Eosinophils # (Auto) 0.0 x10^3/uL (0.0-0.7) Basophils # (Auto) 0.0 x10^3/uL (0.0-0.2) Segmented Neutrophils % 85 % (35-66) Band Neutrophils % 1 % (0-9) Lymphocytes % 13 % (24-48) Monocytes % 1 % (0-10) Platelet Estimate Adequate (ADEQUATE) Polychromasia Present Anisocytosis Mod Macrocytosis Present Target Cells Few Ovalocytes Occ Sodium Level 139 mmol/L (136-145) Potassium Level 4.8 mmol/L (3.5-5.1) Chloride Level 105 mmol/L (98-107) Carbon Dioxide Level 25 mmol/L (21-32) Anion Gap 9 (6-14) Blood Urea Nitrogen 19 mg/dL (8-26) Creatinine 2.1 mg/dL (0.7-1.3) Estimated GFR (Cockcroft-Gault) 40.5 Glucose Level 158 mg/dL (70-99) Uric Acid 7.9 mg/dL (3.5-7.2) Calcium Level 7.9 mg/dL (8.5-10.1) Assessment and Plan Assessmemt and Plan Problems Medical Problems: (1) Chronic kidney disease Status: Acute (2) Elevated troponin I level Status: Acute Comment Review of Relevant I have reviewed the following items coleman (where applicable) has been applied. Labs Laboratory Tests Test 01/14/19 03:05 01/14/19 09:00 01/14/19 12:00 01/15/19 03:10 Sodium Level 144 mmol/L (136-145) 139 mmol/L (136-145) Potassium Level 3.7 mmol/L (3.5-5.1) 4.8 mmol/L (3.5-5.1) Chloride Level 107 mmol/L (98-107) 105 mmol/L (98-107) Carbon Dioxide Level 29 mmol/L (21-32) 25 mmol/L (21-32) Anion Gap 8 (6-14) 9 (6-14) Blood Urea Nitrogen 22 mg/dL (8-26) 19 mg/dL (8-26) Creatinine 2.0 mg/dL (0.7-1.3) 2.1 mg/dL (0.7-1.3) Estimated GFR (Cockcroft-Gault) 42.8 40.5 Glucose Level 114 mg/dL (70-99) 158 mg/dL (70-99) Calcium Level 8.6 mg/dL (8.5-10.1) 7.9 mg/dL (8.5-10.1) Magnesium Level 2.2 mg/dL (1.8-2.4) Troponin I Quantitative 0.247 ng/mL (0.000-0.055) C-Reactive Protein, Quantitative 19.9 mg/L (0-3.3) Erythrocyte Sedimentation Rate 22 (0-15) Urine Collection Type Unknown Urine Color Yellow Urine Clarity Clear Urine pH 6.0 Urine Specific [place] 1.025 Urine Protein Negative mg/dL (NEG-TRACE) Urine Glucose (UA) Negative mg/dL (NEG) Urine Ketones (Stick) Negative mg/dL (NEG) Urine Blood Negative (NEG) Urine Nitrite Negative (NEG) Urine Bilirubin Negative (NEG) Urine Urobilinogen Dipstick 1.0 mg/dL (0.2 mg/dL) Urine Leukocyte Esterase Negative (NEG) Urine RBC Occ /HPF (0-2) Urine WBC 1-4 /HPF (0-4) Urine Squamous Epithelial Cells Many /LPF Urine Bacteria Many /HPF (0-FEW) Urine Mucus Marked /LPF White Blood Count 5.3 x10^3/uL (4.0-11.0) Red Blood Count 4.11 x10^6/uL (4.30-5.70) Hemoglobin 7.9 g/dL (13.0-17.5) Hematocrit 26.7 % (39.0-53.0) Mean Corpuscular Volume 65 fL (79-100) Mean Corpuscular Hemoglobin 19 pg (25-35) Mean Corpuscular Hemoglobin Concent 30 g/dL (31-37) Red Cell Distribution Width 24.4 % (11.5-14.5) Platelet Count 270 x10^3/uL (140-400) Neutrophils (%) (Auto) 90 % (31-73) Lymphocytes (%) (Auto) 8 % (24-48) Monocytes (%) (Auto) 2 % (0-9) Eosinophils (%) (Auto) 0 % (0-3) Basophils (%) (Auto) 1 % (0-3) Neutrophils # (Auto) 4.8 x10^3uL (1.8-7.7) Lymphocytes # (Auto) 0.4 x10^3/uL (1.0-4.8) Monocytes # (Auto) 0.1 x10^3/uL (0.0-1.1) Eosinophils # (Auto) 0.0 x10^3/uL (0.0-0.7) Basophils # (Auto) 0.0 x10^3/uL (0.0-0.2) Segmented Neutrophils % 85 % (35-66) Band Neutrophils % 1 % (0-9) Lymphocytes % 13 % (24-48) Monocytes % 1 % (0-10) Platelet Estimate Adequate (ADEQUATE) Polychromasia Present Anisocytosis Mod Macrocytosis Present Target Cells Few Ovalocytes Occ Uric Acid 7.9 mg/dL (3.5-7.2) Laboratory Tests Test 01/15/19 03:10 White Blood Count 5.3 x10^3/uL (4.0-11.0) Red Blood Count 4.11 x10^6/uL (4.30-5.70) Hemoglobin 7.9 g/dL (13.0-17.5) Hematocrit 26.7 % (39.0-53.0) Mean Corpuscular Volume 65 fL (79-100) Mean Corpuscular Hemoglobin 19 pg (25-35) Mean Corpuscular Hemoglobin Concent 30 g/dL (31-37) Red Cell Distribution Width 24.4 % (11.5-14.5) Platelet Count 270 x10^3/uL (140-400) Neutrophils (%) (Auto) 90 % (31-73) Lymphocytes (%) (Auto) 8 % (24-48) Monocytes (%) (Auto) 2 % (0-9) Eosinophils (%) (Auto) 0 % (0-3) Basophils (%) (Auto) 1 % (0-3) Neutrophils # (Auto) 4.8 x10^3uL (1.8-7.7) Lymphocytes # (Auto) 0.4 x10^3/uL (1.0-4.8) Monocytes # (Auto) 0.1 x10^3/uL (0.0-1.1) Eosinophils # (Auto) 0.0 x10^3/uL (0.0-0.7) Basophils # (Auto) 0.0 x10^3/uL (0.0-0.2) Segmented Neutrophils % 85 % (35-66) Band Neutrophils % 1 % (0-9) Lymphocytes % 13 % (24-48) Monocytes % 1 % (0-10) Platelet Estimate Adequate (ADEQUATE) Polychromasia Present Anisocytosis Mod Macrocytosis Present Target Cells Few Ovalocytes Occ Sodium Level 139 mmol/L (136-145) Potassium Level 4.8 mmol/L (3.5-5.1) Chloride Level 105 mmol/L (98-107) Carbon Dioxide Level 25 mmol/L (21-32) Anion Gap 9 (6-14) Blood Urea Nitrogen 19 mg/dL (8-26) Creatinine 2.1 mg/dL (0.7-1.3) Estimated GFR (Cockcroft-Gault) 40.5 Glucose Level 158 mg/dL (70-99) Uric Acid 7.9 mg/dL (3.5-7.2) Calcium Level 7.9 mg/dL (8.5-10.1) Medications Current Medications Aspirin (Nilson Aspirin) 325 mg 1X ONCE PO ; Start 01/12/19 at 22:00; Stop at 22:00; Status DC Sodium Chloride 1,000 ml @ 1,000 mls/hr 1X ONCE IV ; Start 01/12/19 at 22:00; Stop 01/12/19 at 22:00; Status DC Nitroglycerin (Nitro-Bid Oint) 1 inch 1X ONCE TP Last administered on at 22:03; Start 01/12/19 at 22:30; Stop 01/12/19 at 22:31; Status DC Fentanyl Citrate (Fentanyl 2ml Vial) 50 mcg 1X ONCE IV Last administered on 01/12/19at 22:10; Start 01/12/19 at 22:30; Stop 01/12/19 at 22:31; Status DC Fentanyl Citrate (Fentanyl 2ml Vial) 100 mcg STK-MED ONCE .ROUTE ; Start at 21:50; Stop 01/12/19 at 21:51; Status DC Hydralazine HCl (Apresoline Inj) 20 mg 1X ONCE IVP Last administered on at 23:23; Start 01/12/19 at 23:00; Stop 01/12/19 at 23:01; Status DC Fentanyl Citrate (Fentanyl 2ml Vial) 50 mcg 1X ONCE IV Last administered on 01/12/19at 23:24; Start 01/12/19 at 23:30; Stop 01/12/19 at 23:31; Status DC Ondansetron HCl (Zofran) 4 mg PRN Q8HRS PRN IV NAUSEA/VOMITING 1ST CHOICE; Start 01/12/19 at 23:45; Stop 01/13/19 at 23:44; Status DC Fentanyl Citrate (Fentanyl 2ml Vial) 50 mcg PRN Q2HRS PRN IV SEVERE PAIN Last administered on 01/13/19 19:41; Start 01/12/19 at 23:45; Stop 01/13/19 at 23:44; Status DC Metoprolol Tartrate (Lopressor) 50 mg 1X ONCE PO ; Start 01/13/19 at 09:30; Stop 01/13/19 at 09:31; Status Cancel Metoprolol Tartrate (Lopressor) 25 mg BID PO ; Start 01/13/19 at 21:00; Stop 01/13 at 21:00; Status DC Labetalol HCl (Normodyne Iv Push) 20 mg PRN Q2HR PRN IVP HYPERTENSION, SEE COMMENTS; Start 01/13/19 at 09:15 Nitroglycerin (Nitrostat) 0.4 mg PRN Q5MIN PRN SL CHEST PAIN; Start 01/13/19 at 09:15 Morphine Sulfate (Morphine Ir) 15 mg PRN Q4HRS PRN PO PAIN Last administered on 01/15/19 11:12; Start 01/13/19 at 09:15 Atorvastatin Calcium (Lipitor) 20 mg QHS PO Last administered on 01/14/19 21:13 ; Start 01/13/19 at 21:00 Carvedilol (Coreg) 25 mg BIDWMEALS PO Last administered on 01/15/19 11:10; Start 01/13/19 at 10:00 Clopidogrel Bisulfate (Plavix) 75 mg DAILY PO Last administered on 01/15/19 11: 10; Start 01/13/19 at 10:00 Fluticasone Propionate (Flonase) 2 spray DAILY NS Last administered on 11:13; Start 01/13/19 at 10:00 Isosorbide Mononitrate (Imdur) 60 mg DAILY PO Last administered on 01/15/19 11: 11; Start 01/13/19 at 10:00 Albuterol Sulfate (Ventolin Neb Soln) 2.5 mg PRN Q6HRS PRN NEB SHORTNESS OF BREATH; Start 01/13/19 at 09:30 Hydralazine HCl (Apresoline) 100 mg TID PO Last administered on 01/15/19 11:11 ; Start 01/13/19 at 10:00 Pantoprazole Sodium (Protonix) 40 mg BIDAC PO Last administered on 01/15/19 11: 10; Start 01/13/19 at 10:00 Polysaccharide Iron Complex (Niferex 150) 150 mg DAILY PO Last administered on 01/15/19 11:09; Start 01/14/19 at 09:00 Albuterol/ Ipratropium (Duoneb) 3 ml QID NEB Last administered on 01/15/19 11: 18; Start 01/13/19 at 13:00 Enoxaparin Sodium (Lovenox Per Pharmacy Prophylaxis Dosing) 1 each PRN DAILY PRN MC SEE COMMENTS; Start 01/13/19 at 12:45 Enoxaparin Sodium (Lovenox 40mg Syringe) 40 mg DAILY SQ Last administered on 11:12; Start 01/13/19 at 13:00 Lorazepam (Ativan) 1 mg ONCE ONCE IV Last administered on 01/13/19 14:24; Start 01/13/19 at 12:45; Stop 01/13/19 at 12:46; Status DC Methylprednisolone Sodium Succinate (SOLU-Medrol 40MG VIAL) 40 mg Q12HR IV Last administered on 01/15/19 11:10; Start 01/14/19 at 21:00 Colchicine (Colcrys) 0.6 mg DAILY PO ; Start 01/14/19 at 17:00; Stop 01/14/19 at 17:22; Status DC Regadenoson (Lexiscan) 0.4 mg 1X ONCE IV Last administered on 01/15/19 08:30; Start 01/15/19 at 08:30; Stop 01/15/19 at 08:31; Status DC Active Scripts Active [Pantoprazole] 40 MG Tablet.dr 40 Mg PO BIDAC Ventolin Hfa Inhaler (Albuterol Sulfate) 18 Gm Hfa.aer.ad 2 Puff INH Q4HRS 20 Days Furosemide 40 Mg Tablet 40 Mg PO DAILY 30 Days Carvedilol (Carvedilol) 12.5 Mg Tablet 25 Mg PO BIDWMEALS 30 Days Isosorbide Mononitrate Er (Isosorbide Mononitrate) 30 Mg Tab.er.24h 60 Mg PO DAILY 30 Days Hydralazine Hcl 50 Mg Tablet 100 Mg PO TID 30 Days Lipitor (Atorvastatin Calcium) 20 Mg Tablet 1 Tab PO DAILY Fluticasone Propionate Nasal [place] (Fluticasone Propionate) 1 [place] 2 [place] NS DAILY Reported Clopidogrel (Clopidogrel Bisulfate) 75 Mg Tablet 1 Tab PO DAILY Amlodipine Besylate 10 Mg Tablet 10 Mg PO BID Vitals/I & O Vital Sign - Last 24 Hours 01/14/19 01/14/19 01/14/19 01/14/19 15:11 15:20 17:42 17:42 Temp 98.9 98.9 Pulse 76 80 80 Resp 20 18 B/P (MAP) 117/73 131/79 (96) 131/79 Pulse Ox 95 95 O2 Delivery Room Air Room Air O2 Flow Rate 2.0 01/14/19 01/14/19 01/14/19 01/14/19 19:20 19:51 20:00 21:14 Temp 98.6 98.6 Pulse 88 88 Resp 20 B/P (MAP) 123/80 (94) 123/80 Pulse Ox 96 97 O2 Delivery Room Air Room Air Room Air 01/14/19 01/14/19 01/15/19 01/15/19 21:37 22:12 02:16 02:26 Temp 98.8 98.7 98.8 98.7 Pulse 80 81 Resp 18 18 B/P (MAP) 127/77 (94) 153/98 (116) Pulse Ox 98 97 97 O2 Delivery Room Air Room Air Room Air Room Air 01/15/19 01/15/19 01/15/19 01/15/19 07:20 07:35 08:01 11:00 Temp 97.6 98.2 97.6 98.2 Pulse 81 80 Resp 18 18 B/P (MAP) 165/98 (120) 158/109 (125) Pulse Ox 96 98 99 O2 Delivery Room Air Room Air Room Air Room Air 01/15/19 01/15/19 01/15/19 01/15/19 11:10 11:11 11:11 11:12 Pulse 81 81 81 Resp 18 B/P (MAP) 165/98 165/98 165/98 Pulse Ox 98 O2 Delivery Room Air 01/15/19 01/15/19 11:18 12:12 Resp 18 Pulse Ox 98 98 O2 Delivery Room Air Room Air O2 Flow Rate 2.0 Intake and Output 01/14/19 01/14/19 01/15/19 15:00 23:00 07:00 Intake Total 100 ml 420 ml 240 ml Output Total 0 ml Balance 100 ml 420 ml 240 ml SAIMA BEE MD Jan 15, 2019 14:30
--- NOTE | 2019-01-15 14:35 | PDOC ---
CARDIO Progress Notes Date and Time Date of Service 01/15/2019 Time of Evaluation 1410 Subjective Subjective: No shortness of breath, No Palpitations, Other (still having left chest tightness) Vitals Vitals Vital Signs Date Time Temp Pulse Resp B/P (MAP) Pulse Ox O2 Delivery O2 Flow Rate FiO2 01/15/19 12:12 18 98 Room Air 2.0 01/15/19 11:11 81 165/98 01/15/19 11:00 98.2 98.2 Weight Weight [ ] Input and Output Intake and Output Intake and Output 01/15/19 07:00 Intake Total 760 ml Output Total 0 ml Balance 760 ml Intake Oral 760 ml Output Urine Total 0 ml # Voids 2 Laboratory Labs Laboratory Tests Test 01/15/19 03:10 White Blood Count 5.3 x10^3/uL (4.0-11.0) Red Blood Count 4.11 x10^6/uL (4.30-5.70) Hemoglobin 7.9 g/dL (13.0-17.5) Hematocrit 26.7 % (39.0-53.0) Mean Corpuscular Volume 65 fL (79-100) Mean Corpuscular Hemoglobin 19 pg (25-35) Mean Corpuscular Hemoglobin Concent 30 g/dL (31-37) Red Cell Distribution Width 24.4 % (11.5-14.5) Platelet Count 270 x10^3/uL (140-400) Neutrophils (%) (Auto) 90 % (31-73) Lymphocytes (%) (Auto) 8 % (24-48) Monocytes (%) (Auto) 2 % (0-9) Eosinophils (%) (Auto) 0 % (0-3) Basophils (%) (Auto) 1 % (0-3) Neutrophils # (Auto) 4.8 x10^3uL (1.8-7.7) Lymphocytes # (Auto) 0.4 x10^3/uL (1.0-4.8) Monocytes # (Auto) 0.1 x10^3/uL (0.0-1.1) Eosinophils # (Auto) 0.0 x10^3/uL (0.0-0.7) Basophils # (Auto) 0.0 x10^3/uL (0.0-0.2) Segmented Neutrophils % 85 % (35-66) Band Neutrophils % 1 % (0-9) Lymphocytes % 13 % (24-48) Monocytes % 1 % (0-10) Platelet Estimate Adequate (ADEQUATE) Polychromasia Present Anisocytosis Mod Macrocytosis Present Target Cells Few Ovalocytes Occ Sodium Level 139 mmol/L (136-145) Potassium Level 4.8 mmol/L (3.5-5.1) Chloride Level 105 mmol/L (98-107) Carbon Dioxide Level 25 mmol/L (21-32) Anion Gap 9 (6-14) Blood Urea Nitrogen 19 mg/dL (8-26) Creatinine 2.1 mg/dL (0.7-1.3) Estimated GFR (Cockcroft-Gault) 40.5 Glucose Level 158 mg/dL (70-99) Uric Acid 7.9 mg/dL (3.5-7.2) Calcium Level 7.9 mg/dL (8.5-10.1) Physical Exam HEENT: Neck Supple W Full Motion Chest: Symmetric LUNGS: Clear to Auscultation Heart: S1S2, RRR (SR), no gallops, murmurs (3/6 SHEYLA, known to him) Abdomen: Soft N/T Extremities: No Edema, No Calf Tenderness Neurology: alert, oriented, follow commands Assessment Assessment 1. Acute on chronic systolic/diastolic CHF: EF 35% compensated 2. NSTEMI: recent stent placement at in 2016 with patent stent from repeat LHC in 11/2017 3. COPD with moderate pulmonary HTN with continued tobaccoism 4. HTN; controlled 5. HLP 6. 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 Bergeron in due to lack of health ins. 7. CKD: Cr stable at 2.1 8. Hx of recent PUD/GI bleed 9. Hx of substance abuse; nefatie for cocaine this time 10. Anemia: from Hgb 9.4 to 7.9 Fe deficiency, defer to PCP Recommendations 1. allergic to lisinopril. Continue current BP regimen (coreg, hydralazine/ imdur). Consider norvasc if BP remains labile 2. Continue with secondary prevention. MPI today with pending result. Continue plavix and intensify statin RICARDO MALONE APRN Jan 15, 2019 14:35
[2019-01-15 15:00] VITALS: BP 133/90
[2019-01-15 19:25] VITALS: BP 142/96
[2019-01-15] MEDS ORDERED: ATORVASTATIN CALCIUM 20 MG TABLET PO SCH (21:00)
[2019-01-15 23:32] VITALS: BP 150/95
[2019-01-16] MEDS: MORPHINE IR 15 MG TABLET PO PRN ×3 (00:39→11:24)
[2019-01-16 03:20] VITALS: BP_SYST 129; BP_SYST 159; BP_DIAS 104; BP_DIAS 54
[2019-01-16] MEDS ORDERED: diphenhydrAMINE HCL 25 MG CAPSULE PO PRN (04:15)
[2019-01-16 07:00] VITALS: BP 162/103
[2019-01-16] MEDS: IPRATRPIUM/ALBUTEROL 0.5/2.5MG 3 ML NEBU. NEB SCH ×3 (08:19→15:36)
[2019-01-16] MEDS: ENOXAPARIN 40 MG/0.4 ML SYRINGE. SQ SCH (09:00)
[2019-01-16] MEDS: methylPREDNISolone SOD SUCC PF 40 MG/ML VIAL. IV SCH (09:11)
[2019-01-16] MEDS: FLUTICASONE 50MCG/NASAL SPRAY 16GM BOTTLE. NS SCH (09:12)
[2019-01-16] MEDS: PANTOPRAZOLE 40 MG TABLET.DR. PO SCH ×2 (09:12→16:18)
[2019-01-16] MEDS: CLOPIDOGREL BISULFATE 75 MG TABLET PO SCH (09:12)
[2019-01-16] MEDS: IRON POLYSACCHARIDE COMPLEX 150 MG CAPSULE PO SCH (09:12)
[2019-01-16] MEDS: CARVEDILOL 12.5 MG TABLET. PO SCH ×2 (09:12→16:19)
[2019-01-16] MEDS: ISOSORBIDE MONONITRATE ER 30 MG TAB.ER.24H PO SCH (09:12)
[2019-01-16 09:20] LABS: RED BLOOD COUNT 4.16 x10^6/uL (4.30-5.70); RED CELL DISTRIBUTION WIDTH 24.8 % (11.5-14.5); WHITE BLOOD COUNT 10.3 x10^3/uL (4.0-11.0)
[2019-01-16 09:48] LABS: CALCIUM 9.2 mg/dL (8.5-10.1); CREATININE 2.1 mg/dL (0.7-1.3); GFR 40.5; POTASSIUM 5.2 mmol/L (3.5-5.1)
[2019-01-16 11:00] VITALS: BP 165/108
[2019-01-16] MEDS ORDERED: amLODIPine BESYLATE 5 MG TABLET PO SCH (12:00)
--- NOTE | 2019-01-16 13:11 | PDOC ---
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 Uncontrolled hypertension. Coronary artery disease with previous percutaneous coronary intervention at [facility]. Secondary pulmonary hypertension. Paroxysmal supraventricular tachycardia. Chronic kidney disease stage 3 History of Present Illness History of Present Illness Mr. Blanton, 53 yo male w/ PMHx CHF, PUD w/ H. pylori, pulm HTN who p/w chest pain. Has a history of CAD s/p PCI/stent 06/2017 and recath at 12/2017 that showed patent diagonal stent with mild disease to LAD. 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 Patient has failed followup for further workup. Pt was seen and examined in pt room today He is resting in bed, sitting upright and leaning forward Discussed with RN Denies significant pain today Vitals Vitals Vital Signs Date Time Temp Pulse Resp B/P (MAP) Pulse Ox O2 Delivery O2 Flow Rate FiO2 01/16/19 11:53 Room Air 01/16/19 11:00 97.4 77 18 165/108 (127) 96 97.4 01/16/19 00:39 2.0 Physical Exam General: mild distress Heart: Regular rate, No murmurs Lungs: Clear Abdomen: Normal bowel sounds, No tenderness Extremities: No edema, Normal pulses Skin: No rashes, No significant lesion Labs LABS Laboratory Tests Test 01/16/19 09:03 White Blood Count 10.3 x10^3/uL (4.0-11.0) Red Blood Count 4.16 x10^6/uL (4.30-5.70) Hemoglobin 8.0 g/dL (13.0-17.5) Hematocrit 27.0 % (39.0-53.0) Mean Corpuscular Volume 65 fL (79-100) Mean Corpuscular Hemoglobin 19 pg (25-35) Mean Corpuscular Hemoglobin Concent 30 g/dL (31-37) Red Cell Distribution Width 24.8 % (11.5-14.5) Platelet Count 279 x10^3/uL (140-400) Sodium Level 140 mmol/L (136-145) Potassium Level 5.2 mmol/L (3.5-5.1) Chloride Level 107 mmol/L (98-107) Carbon Dioxide Level 25 mmol/L (21-32) Anion Gap 8 (6-14) Blood Urea Nitrogen 31 mg/dL (8-26) Creatinine 2.1 mg/dL (0.7-1.3) Estimated GFR (Cockcroft-Gault) 40.5 Glucose Level 129 mg/dL (70-99) Calcium Level 9.2 mg/dL (8.5-10.1) Review of Systems Review of Systems Pt reports mild generalized discomfort Pt denies SOB, RAMSEY, dizziness, N/V/D Assessment and Plan Assessmemt and Plan Problems Medical Problems: (1) Chronic kidney disease Status: Acute (2) Elevated troponin I level Status: Acute Assessment Chest pain, angina Acute dyspnea Acute on chronic exacerbation of 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 Uncontrolled hypertension. Coronary artery disease with previous percutaneous coronary intervention at [facility]. Secondary pulmonary hypertension. Paroxysmal supraventricular tachycardia. 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- elevated Cr 2.1, will await nephrology recs, contrast may worsen kidney function Start Norvasc 5mg PO daily Consult nephrology- elevated creatinine, ARF Will hold off on IVF- await nephrology input, pt has acute on chronic HF and elevated Cr Check Hgb A1c- elevated random glucose 158 Continue IV steroids MPI study shows severe LV dysfunction, large lat wall defect with LVEF 31% Appreciate Cardiology recs- will cont hydralazine/imdur, coreg, plavix, statin Cardiac monitoring Frequent labs DVT prophylaxis PT/OT Appreciate subspecialty recs Comment Review of Relevant I have reviewed the following items coleman (where applicable) has been applied. Labs Laboratory Tests Test 01/15/19 03:10 01/16/19 09:03 White Blood Count 5.3 x10^3/uL (4.0-11.0) 10.3 x10^3/uL (4.0-11.0) Red Blood Count 4.11 x10^6/uL (4.30-5.70) 4.16 x10^6/uL (4.30-5.70) Hemoglobin 7.9 g/dL (13.0-17.5) 8.0 g/dL (13.0-17.5) Hematocrit 26.7 % (39.0-53.0) 27.0 % (39.0-53.0) Mean Corpuscular Volume 65 fL (79-100) 65 fL (79-100) Mean Corpuscular Hemoglobin 19 pg (25-35) 19 pg (25-35) Mean Corpuscular Hemoglobin Concent 30 g/dL (31-37) 30 g/dL (31-37) Red Cell Distribution Width 24.4 % (11.5-14.5) 24.8 % (11.5-14.5) Platelet Count 270 x10^3/uL (140-400) 279 x10^3/uL (140-400) Neutrophils (%) (Auto) 90 % (31-73) Lymphocytes (%) (Auto) 8 % (24-48) Monocytes (%) (Auto) 2 % (0-9) Eosinophils (%) (Auto) 0 % (0-3) Basophils (%) (Auto) 1 % (0-3) Neutrophils # (Auto) 4.8 x10^3uL (1.8-7.7) Lymphocytes # (Auto) 0.4 x10^3/uL (1.0-4.8) Monocytes # (Auto) 0.1 x10^3/uL (0.0-1.1) Eosinophils # (Auto) 0.0 x10^3/uL (0.0-0.7) Basophils # (Auto) 0.0 x10^3/uL (0.0-0.2) Segmented Neutrophils % 85 % (35-66) Band Neutrophils % 1 % (0-9) Lymphocytes % 13 % (24-48) Monocytes % 1 % (0-10) Platelet Estimate Adequate (ADEQUATE) Polychromasia Present Anisocytosis Mod Macrocytosis Present Target Cells Few Ovalocytes Occ Sodium Level 139 mmol/L (136-145) 140 mmol/L (136-145) Potassium Level 4.8 mmol/L (3.5-5.1) 5.2 mmol/L (3.5-5.1) Chloride Level 105 mmol/L (98-107) 107 mmol/L (98-107) Carbon Dioxide Level 25 mmol/L (21-32) 25 mmol/L (21-32) Anion Gap 9 (6-14) 8 (6-14) Blood Urea Nitrogen 19 mg/dL (8-26) 31 mg/dL (8-26) Creatinine 2.1 mg/dL (0.7-1.3) 2.1 mg/dL (0.7-1.3) Estimated GFR (Cockcroft-Gault) 40.5 40.5 Glucose Level 158 mg/dL (70-99) 129 mg/dL (70-99) Uric Acid 7.9 mg/dL (3.5-7.2) Calcium Level 7.9 mg/dL (8.5-10.1) 9.2 mg/dL (8.5-10.1) Laboratory Tests Test 01/16/19 09:03 White Blood Count 10.3 x10^3/uL (4.0-11.0) Red Blood Count 4.16 x10^6/uL (4.30-5.70) Hemoglobin 8.0 g/dL (13.0-17.5) Hematocrit 27.0 % (39.0-53.0) Mean Corpuscular Volume 65 fL (79-100) Mean Corpuscular Hemoglobin 19 pg (25-35) Mean Corpuscular Hemoglobin Concent 30 g/dL (31-37) Red Cell Distribution Width 24.8 % (11.5-14.5) Platelet Count 279 x10^3/uL (140-400) Sodium Level 140 mmol/L (136-145) Potassium Level 5.2 mmol/L (3.5-5.1) Chloride Level 107 mmol/L (98-107) Carbon Dioxide Level 25 mmol/L (21-32) Anion Gap 8 (6-14) Blood Urea Nitrogen 31 mg/dL (8-26) Creatinine 2.1 mg/dL (0.7-1.3) Estimated GFR (Cockcroft-Gault) 40.5 Glucose Level 129 mg/dL (70-99) Calcium Level 9.2 mg/dL (8.5-10.1) Medications Current Medications Aspirin (Nilson Aspirin) 325 mg 1X ONCE PO ; Start 01/12/19 at 22:00; Stop at 22:00; Status DC Sodium Chloride 1,000 ml @ 1,000 mls/hr 1X ONCE IV ; Start 01/12/19 at 22:00; Stop 01/12/19 at 22:00; Status DC Nitroglycerin (Nitro-Bid Oint) 1 inch 1X ONCE TP Last administered on at 22:03; Start 01/12/19 at 22:30; Stop 01/12/19 at 22:31; Status DC Fentanyl Citrate (Fentanyl 2ml Vial) 50 mcg 1X ONCE IV Last administered on 01/12/19at 22:10; Start 01/12/19 at 22:30; Stop 01/12/19 at 22:31; Status DC Fentanyl Citrate (Fentanyl 2ml Vial) 100 mcg STK-MED ONCE .ROUTE ; Start at 21:50; Stop 01/12/19 at 21:51; Status DC Hydralazine HCl (Apresoline Inj) 20 mg 1X ONCE IVP Last administered on at 23:23; Start 01/12/19 at 23:00; Stop 01/12/19 at 23:01; Status DC Fentanyl Citrate (Fentanyl 2ml Vial) 50 mcg 1X ONCE IV Last administered on 01/12/19at 23:24; Start 01/12/19 at 23:30; Stop 01/12/19 at 23:31; Status DC Ondansetron HCl (Zofran) 4 mg PRN Q8HRS PRN IV NAUSEA/VOMITING 1ST CHOICE; Start 01/12/19 at 23:45; Stop 01/13/19 at 23:44; Status DC Fentanyl Citrate (Fentanyl 2ml Vial) 50 mcg PRN Q2HRS PRN IV SEVERE PAIN Last administered on 01/13/19at 19:41; Start 01/12/19 at 23:45; Stop 01/13/19 at 23:44; Status DC Metoprolol Tartrate (Lopressor) 50 mg 1X ONCE PO ; Start 01/13/19 at 09:30; Stop 01/13/19 at 09:31; Status Cancel Metoprolol Tartrate (Lopressor) 25 mg BID PO ; Start 01/13/19 at 21:00; Stop 01/13 at 21:00; Status DC Labetalol HCl (Normodyne Iv Push) 20 mg PRN Q2HR PRN IVP HYPERTENSION, SEE COMMENTS; Start 01/13/19 at 09:15 Nitroglycerin (Nitrostat) 0.4 mg PRN Q5MIN PRN SL CHEST PAIN; Start 01/13/19 at 09:15 Morphine Sulfate (Morphine Ir) 15 mg PRN Q4HRS PRN PO PAIN Last administered on 01/16/19 11:24; Start 01/13/19 at 09:15 Atorvastatin Calcium (Lipitor) 20 mg QHS PO Last administered on 01/14/19 21:13 ; Start 01/13/19 at 21:00; Stop 01/15/19 at 14:35; Status DC Carvedilol (Coreg) 25 mg BIDWMEALS PO Last administered on 01/16/19 09:12; Start 01/13/19 at 10:00 Clopidogrel Bisulfate (Plavix) 75 mg DAILY PO Last administered on 01/16/19 09: 12; Start 01/13/19 at 10:00 Fluticasone Propionate (Flonase) 2 spray DAILY NS Last administered on 09:12; Start 01/13/19 at 10:00 Isosorbide Mononitrate (Imdur) 60 mg DAILY PO Last administered on 01/16/19 09: 12; Start 01/13/19 at 10:00 Albuterol Sulfate (Ventolin Neb Soln) 2.5 mg PRN Q6HRS PRN NEB SHORTNESS OF BREATH; Start 01/13/19 at 09:30 Hydralazine HCl (Apresoline) 100 mg TID PO Last administered on 01/16/19 09:11 ; Start 01/13/19 at 10:00 Pantoprazole Sodium (Protonix) 40 mg BIDAC PO Last administered on 01/16/19 09: 12; Start 01/13/19 at 10:00 Polysaccharide Iron Complex (Niferex 150) 150 mg DAILY PO Last administered on 01/16/19 09:12; Start 01/14/19 at 09:00 Albuterol/ Ipratropium (Duoneb) 3 ml QID NEB Last administered on 01/16/19 11: 52; Start 01/13/19 at 13:00 Enoxaparin Sodium (Lovenox Per Pharmacy Prophylaxis Dosing) 1 each PRN DAILY PRN MC SEE COMMENTS; Start 01/13/19 at 12:45 Enoxaparin Sodium (Lovenox 40mg Syringe) 40 mg DAILY SQ Last administered on 11:12; Start 01/13/19 at 13:00 Lorazepam (Ativan) 1 mg ONCE ONCE IV Last administered on 01/13/19at 14:24; Start 01/13/19 at 12:45; Stop 01/13/19 at 12:46; Status DC Methylprednisolone Sodium Succinate (SOLU-Medrol 40MG VIAL) 40 mg Q12HR IV Last administered on 01/16/19at 09:11; Start 01/14/19 at 21:00 Colchicine (Colcrys) 0.6 mg DAILY PO ; Start 01/14/19 at 17:00; Stop 01/14/19 at 17:22; Status DC Regadenoson (Lexiscan) 0.4 mg 1X ONCE IV Last administered on 01/15/19at 08:30; Start 01/15/19 at 08:30; Stop 01/15/19 at 08:31; Status DC Atorvastatin Calcium (Lipitor) 40 mg QHS PO Last administered on 01/15/19at 19:59 ; Start 01/15/19 at 21:00 Diphenhydramine HCl (Benadryl) 25 mg PRN Q6HRS PRN PO ITCHING Last administered on 01/16/19at 04:24; Start 01/16/19 at 04:15 Amlodipine Besylate (Norvasc) 5 mg DAILY PO ; Start 01/16/19 at 12:00 Active Scripts Active [Pantoprazole] 40 MG Tablet.dr 40 Mg PO BIDAC Ventolin Hfa Inhaler (Albuterol Sulfate) 18 Gm Hfa.aer.ad 2 Puff INH Q4HRS 20 Days Furosemide 40 Mg Tablet 40 Mg PO DAILY 30 Days Carvedilol (Carvedilol) 12.5 Mg Tablet 25 Mg PO BIDWMEALS 30 Days Isosorbide Mononitrate Er (Isosorbide Mononitrate) 30 Mg Tab.er.24h 60 Mg PO DAILY 30 Days Hydralazine Hcl 50 Mg Tablet 100 Mg PO TID 30 Days Lipitor (Atorvastatin Calcium) 20 Mg Tablet 1 Tab PO DAILY Fluticasone Propionate Nasal [place] (Fluticasone Propionate) 1 [place] 2 [place] NS DAILY Reported Clopidogrel (Clopidogrel Bisulfate) 75 Mg Tablet 1 Tab PO DAILY Amlodipine Besylate 10 Mg Tablet 10 Mg PO BID Vitals/I & O Vital Sign - Last 24 Hours 01/15/19 01/15/19 01/15/19 3/5/19 15:00 15:19 15:29 16:20 Temp 98.0 98.0 Pulse 80 Resp 18 20 18 B/P (MAP) 133/90 (104) Pulse Ox 95 95 O2 Delivery Room Air Room Air Room Air O2 Flow Rate 2.0 01/15/19 01/15/19 01/15/19 01/15/19 17:29 19:22 19:25 19:59 Temp 97.8 97.8 Pulse 80 76 Resp 18 B/P (MAP) 133/90 142/96 (111) Pulse Ox 96 O2 Delivery Room Air Room Air Room Air 01/15/19 01/15/19 01/15/19 01/15/19 19:59 20:00 21:00 23:32 Temp 97.7 97.7 Pulse 80 81 Resp 17 B/P (MAP) 133/90 150/95 (113) Pulse Ox 96 96 O2 Delivery Room Air Room Air 01/16/19 01/16/19 01/16/19 01/16/19 00:39 01:39 03:20 06:52 Temp 97.8 97.8 Pulse 84 Resp 19 B/P (MAP) 159/104 (122) Pulse Ox 96 97 97 O2 Delivery Room Air Room Air Room Air Room Air O2 Flow Rate 2.0 01/16/19 01/16/19 01/16/19 01/16/19 07:00 08:15 08:20 09:11 Temp 97.4 97.4 Pulse 83 85 Resp 17 B/P (MAP) 162/103 (122) Pulse Ox 92 96 O2 Delivery Room Air Room Air Room Air 01/16/19 01/16/19 01/16/19 01/16/19 09:12 09:12 11:00 11:53 Temp 97.4 97.4 Pulse 85 85 77 Resp 18 B/P (MAP) 165/108 (127) Pulse Ox 96 O2 Delivery Room Air Room Air Intake and Output 01/15/19 01/15/19 01/16/19 15:00 23:00 07:00 Intake Total 400 ml 480 ml 120 ml Balance 400 ml 480 ml 120 ml CASTLE,NIAL K III DO Jan 16, 2019 13:11
--- NOTE | 2019-01-16 13:21 | PDOC ---
CARDIO Progress Notes Date and Time Date of Service 01/16/19 Time of Evaluation 1210 Subjective Subjective: No shortness of breath, No Palpitations, Other (having left chest tightness) Vitals Vitals Vital Signs Date Time Temp Pulse Resp B/P (MAP) Pulse Ox O2 Delivery O2 Flow Rate FiO2 01/16/19 11:53 Room Air 01/16/19 11:00 97.4 77 18 165/108 (127) 96 97.4 01/16/19 00:39 2.0 Weight Weight [ ] Input and Output Intake and Output Intake and Output 01/16/19 07:00 Intake Total 1000 ml Balance 1000 ml Intake Oral 1000 ml # Voids 2 Laboratory Labs Laboratory Tests Test 01/16/19 09:03 White Blood Count 10.3 x10^3/uL (4.0-11.0) Red Blood Count 4.16 x10^6/uL (4.30-5.70) Hemoglobin 8.0 g/dL (13.0-17.5) Hematocrit 27.0 % (39.0-53.0) Mean Corpuscular Volume 65 fL (79-100) Mean Corpuscular Hemoglobin 19 pg (25-35) Mean Corpuscular Hemoglobin Concent 30 g/dL (31-37) Red Cell Distribution Width 24.8 % (11.5-14.5) Platelet Count 279 x10^3/uL (140-400) Sodium Level 140 mmol/L (136-145) Potassium Level 5.2 mmol/L (3.5-5.1) Chloride Level 107 mmol/L (98-107) Carbon Dioxide Level 25 mmol/L (21-32) Anion Gap 8 (6-14) Blood Urea Nitrogen 31 mg/dL (8-26) Creatinine 2.1 mg/dL (0.7-1.3) Estimated GFR (Cockcroft-Gault) 40.5 Glucose Level 129 mg/dL (70-99) Calcium Level 9.2 mg/dL (8.5-10.1) Physical Exam HEENT: Neck Supple W Full Motion Chest: Symmetric LUNGS: Clear to Auscultation Heart: S1S2, RRR (SR), no gallops, murmurs (3/6 SHEYLA, known to him) Abdomen: Soft N/T Extremities: No Edema, No Calf Tenderness Neurology: alert, oriented, follow commands Assessment Assessment 1. Acute on chronic systolic/diastolic CHF: EF 35% compensated 2. NSTEMI: PCI/stent placement at in 2017 with patent stent from repeat LHC in 11/2017. MPI showed large lateral wall with mild estephanie-infarct reversibility. 3. COPD with moderate pulmonary HTN with continued tobaccoism 4. HTN; mildly elevated 5. HLP 6. 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 Bergeron in due to lack of health ins. 7. CKD: Cr stable at 2.1 8. Hx of recent PUD/GI bleed 9. Hx of substance abuse; negative for cocaine this time 10. Anemia: from Hgb 9.4 to 8.0 Fe deficiency, defer to PCP Recommendations Allergic to lisinopril. Continue current BP regimen (Coreg, hydralazine/Imdur) . 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 May discharge from a CV standpoint and f/u in our office in 3-4 weeks. SHRAVAN WOOD APRN Jan 16, 2019 13:21
[2019-01-16 15:00] VITALS: BP 141/88
[2019-01-16] MEDS ORDERED: HYDR-2759 PO (15:08)
[2019-01-16] MEDS ORDERED: PRED20TA PO (15:08)
--- NOTE | 2019-01-16 15:39 | PDOC ---
SUBJECTIVE ROS c/o chest tightness, he claims he cannot he cannot be dced home and he will go right back to ED and will get readmitted OBJECTIVE Vital Signs Vital Signs Date Time Temp Pulse Resp B/P (MAP) Pulse Ox O2 Delivery O2 Flow Rate FiO2 01/16/19 13:45 85 01/16/19 11:53 Room Air 01/16/19 11:00 97.4 18 165/108 (127) 96 97.4 01/16/19 00:39 2.0 I & 0 Intake and Output 01/16/19 06:59 Intake Total 1000 ml Balance 1000 ml Intake Oral 1000 ml # Voids 2 PHYSICAL EXAM Physical Exam General: NAD OM Moist Heart: Regular rate Lungs: Clear Abdomen: NT Extremities: No edema, Skin: No rash - No resendiz DIAGNOSIS/ASSESSMENT Assessment & Plan VITALIY -Cardiorenal Improving E-Lytes and acid base stable Hyperkalemia- Mild Chronic kidney disease stage 3, likely secondary to hypertensive nephrosclerosis Baseline 1.5-2.0 as per PMC records Renal US in 2016 Mildly echogenic kidneys with an enlarged prostate As per Pt has CKD for many years but his pcp was managing it History of drug abuse -- less likely focal segmental glomerulosclerosis, No Protein in UA , no Micr hematuria History of coronary artery disease and cardiomyopathy with chest pain and Anemia- Fe deficient As per primary 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 Acute hypoxemic respiratory failure secondary to acute diastolic heart failure. Uncontrolled hypertension- Renal Duplex 2016- No significant renal artery stenosis identified on duplex ultrasonography. Coronary artery disease with previous percutaneous coronary intervention at [facility]. COMMENT/RELEVANT DATA Meds Current Medications Medications (Trade) Dose Ordered Sig/Deepa Start Time Stop Time Status Last Admin Dose Admin Albuterol Sulfate (Ventolin Neb Soln) 2.5 mg PRN Q6HRS PRN 01/13/19 09:30 Albuterol/ Ipratropium (Duoneb) 3 ml QID 01/13/19 13:00 01/16/19 11:52 3 ML Amlodipine Besylate (Norvasc) 5 mg DAILY 01/16/19 12:00 01/16/19 13:45 5 MG Aspirin (Nilson Aspirin) 325 mg 1X ONCE 01/12/19 22:00 01/12/19 22:00 DC Atorvastatin Calcium (Lipitor) 40 mg QHS 01/15/19 21:00 01/15/19 19:59 40 MG Carvedilol (Coreg) 25 mg BIDWMEALS 01/13/19 10:00 01/16/19 09:12 25 MG Clopidogrel Bisulfate (Plavix) 75 mg DAILY 01/13/19 10:00 01/16/19 09:12 75 MG Colchicine (Colcrys) 0.6 mg DAILY 01/14/19 17:00 01/14/19 17:22 DC Diphenhydramine HCl (Benadryl) 25 mg PRN Q6HRS PRN 01/16/19 04:15 01/16/19 04:24 25 MG Enoxaparin Sodium (Lovenox 40mg Syringe) 40 mg DAILY 01/13/19 13:00 01/15/19 11:12 40 MG Enoxaparin Sodium (Lovenox Per Pharmacy Prophylaxis Dosing) 1 each PRN DAILY PRN 01/13/19 12:45 Fentanyl Citrate (Fentanyl 2ml Vial) 50 mcg PRN Q2HRS PRN 01/12/19 23:45 01/13/19 23:44 DC 01/13/19 19:41 50 MCG Fluticasone Propionate (Flonase) 2 spray DAILY 01/13/19 10:00 01/16/19 09:12 2 SPRAY Hydralazine HCl (Apresoline Inj) 20 mg 1X ONCE 01/12/19 23:00 01/12/19 23:01 DC 01/12/19 23:23 20 MG Hydralazine HCl (Apresoline) 100 mg TID 01/13/19 10:00 01/16/19 13:44 100 MG Isosorbide Mononitrate (Imdur) 60 mg DAILY 01/13/19 10:00 01/16/19 09:12 60 MG Labetalol HCl (Normodyne Iv Push) 20 mg PRN Q2HR PRN 01/13/19 09:15 Lorazepam (Ativan) 1 mg ONCE ONCE 01/13/19 12:45 01/13/19 12:46 DC 01/13/19 14:24 1 MG Methylprednisolone Sodium Succinate (SOLU-Medrol 40MG VIAL) 40 mg Q12HR 01/14/19 21:00 01/16/19 09:11 40 MG Metoprolol Tartrate (Lopressor) 25 mg BID 01/13/19 21:00 01/13/19 21:00 DC Morphine Sulfate (Morphine Ir) 15 mg PRN Q4HRS PRN 01/13/19 09:15 01/16/19 11:24 15 MG Nitroglycerin (Nitro-Bid Oint) 1 inch 1X ONCE 01/12/19 22:30 01/12/19 22:31 DC 01/12/19 22:03 1 INCH Nitroglycerin (Nitrostat) 0.4 mg PRN Q5MIN PRN 01/13/19 09:15 Ondansetron HCl (Zofran) 4 mg PRN Q8HRS PRN 01/12/19 23:45 01/13/19 23:44 DC Pantoprazole Sodium (Protonix) 40 mg BIDAC 01/13/19 10:00 01/16/19 09:12 40 MG Polysaccharide Iron Complex (Niferex 150) 150 mg DAILY 01/14/19 09:00 01/16/19 09:12 150 MG Regadenoson (Lexiscan) 0.4 mg 1X ONCE 01/15/19 08:30 01/15/19 08:31 DC 01/15/19 08:30 0.4 MG Sodium Chloride 1,000 ml @ 1,000 mls/hr 1X ONCE 01/12/19 22:00 01/12/19 22:00 DC Lab Laboratory Tests Test 01/16/19 09:03 White Blood Count 10.3 x10^3/uL (4.0-11.0) Red Blood Count 4.16 x10^6/uL (4.30-5.70) Hemoglobin 8.0 g/dL (13.0-17.5) Hematocrit 27.0 % (39.0-53.0) Mean Corpuscular Volume 65 fL (79-100) Mean Corpuscular Hemoglobin 19 pg (25-35) Mean Corpuscular Hemoglobin Concent 30 g/dL (31-37) Red Cell Distribution Width 24.8 % (11.5-14.5) Platelet Count 279 x10^3/uL (140-400) Sodium Level 140 mmol/L (136-145) Potassium Level 5.2 mmol/L (3.5-5.1) Chloride Level 107 mmol/L (98-107) Carbon Dioxide Level 25 mmol/L (21-32) Anion Gap 8 (6-14) Blood Urea Nitrogen 31 mg/dL (8-26) Creatinine 2.1 mg/dL (0.7-1.3) Estimated GFR (Cockcroft-Gault) 40.5 Glucose Level 129 mg/dL (70-99) Calcium Level 9.2 mg/dL (8.5-10.1) Results All relevant outside records, renal labs, imaging studies, telemetry/EKG's were reviewed. MINDI RIOS MD Jan 16, 2019 15:39
[2019-01-16] MEDS ORDERED: HYDROcodone/APAP 5/325MG 1 TAB TABLET PO ONE (16:30)
--- NOTE | 2019-01-16 16:39 | NUR ---
Discharge: Teaching verbal and written. Reviewed medications, follow-up, CHF, cardiac diet, ECHO, Stress test, ect. Patient verbalized understanding. IV removed without complications, catheter tip in-tact, dressing applied. All belongings with patient. Patient waiting on ride.
--- NOTE | 2019-01-16 17:50 | NUR ---
Discharge: Patient said his ride was waiting for him at the ER entrance. KITCH[employer] UT[employer] ASSOCIATE assisted patient via wheelchair. KITCHEN UTILITY ASSOCIATE waiting with patient for 25 minutes then brought patient back to unit. Patient then wanted to go back to the ER and wait. Patient said he does not need a bedsitter. KITCHEN UTILITY ASSOCIATE ambulated to ER with patient. Patient called a few rides and they were yet to arrive when to patient told the KITCHEN UTILITY ASSOCIATE he didn't need anyone to wait with him. Refusing to return to room. Patient was left waiting inside the ER waiting room. [facility] security notified. All belongings with patient
[2019-01-18 02:13] LABS: HEMOGLOBIN A1C 5.2 % (4.8-5.6)
--- NOTE | 2019-01-24 13:40 | PDOC ---
PROGRESS NOTES Subjective Subjective I was paged that this patient had questions and foot pain, DC reviewed I called [phone], and a male answered and reported he was not there, and did not have another number for him Objective Objective Vital Signs Date Time Temp Pulse Resp B/P (MAP) Pulse Ox O2 Delivery O2 Flow Rate FiO2 01/16/19 16:19 85 01/16/19 15:37 Room Air 01/16/19 15:00 97.7 18 141/88 (105) 94 97.7 01/16/19 00:39 2.0 Assessment Assessment Problems Medical Problems: (1) Chronic kidney disease Status: Acute (2) Elevated troponin I level Status: Acute Comment Review of Relevant I have reviewed the following items coleman (where applicable) has been applied. Medications Current Medications Aspirin (Nilson Aspirin) 325 mg 1X ONCE PO ; Start 01/12/19 at 22:00; Stop at 22:00; Status DC Sodium Chloride 1,000 ml @ 1,000 mls/hr 1X ONCE IV ; Start 01/12/19 at 22:00; Stop 01/12/19 at 22:00; Status DC Nitroglycerin (Nitro-Bid Oint) 1 inch 1X ONCE TP Last administered on at 22:03; Start 01/12/19 at 22:30; Stop 01/12/19 at 22:31; Status DC Fentanyl Citrate (Fentanyl 2ml Vial) 50 mcg 1X ONCE IV Last administered on 01/12/19at 22:10; Start 01/12/19 at 22:30; Stop 01/12/19 at 22:31; Status DC Fentanyl Citrate (Fentanyl 2ml Vial) 100 mcg STK-MED ONCE .ROUTE ; Start at 21:50; Stop 01/12/19 at 21:51; Status DC Hydralazine HCl (Apresoline Inj) 20 mg 1X ONCE IVP Last administered on at 23:23; Start 01/12/19 at 23:00; Stop 01/12/19 at 23:01; Status DC Fentanyl Citrate (Fentanyl 2ml Vial) 50 mcg 1X ONCE IV Last administered on 01/12/19at 23:24; Start 01/12/19 at 23:30; Stop 01/12/19 at 23:31; Status DC Ondansetron HCl (Zofran) 4 mg PRN Q8HRS PRN IV NAUSEA/VOMITING 1ST CHOICE; Start 01/12/19 at 23:45; Stop 01/13/19 at 23:44; Status DC Fentanyl Citrate (Fentanyl 2ml Vial) 50 mcg PRN Q2HRS PRN IV SEVERE PAIN Last administered on 01/13/19at 19:41; Start 01/12/19 at 23:45; Stop 01/13/19 at 23:44; Status DC Metoprolol Tartrate (Lopressor) 50 mg 1X ONCE PO ; Start 01/13/19 at 09:30; Stop 01/13/19 at 09:31; Status Cancel Metoprolol Tartrate (Lopressor) 25 mg BID PO ; Start 01/13/19 at 21:00; Stop 01/13 at 21:00; Status DC Labetalol HCl (Normodyne Iv Push) 20 mg PRN Q2HR PRN IVP HYPERTENSION, SEE COMMENTS; Start 01/13/19 at 09:15; Stop 01/16/19 at 19:05; Status DC Nitroglycerin (Nitrostat) 0.4 mg PRN Q5MIN PRN SL CHEST PAIN; Start 01/13/19 at 09:15; Stop 01/16/19 at 19:05; Status DC Morphine Sulfate (Morphine Ir) 15 mg PRN Q4HRS PRN PO PAIN Last administered on 01/16/19 11:24; Start 01/13/19 at 09:15; Stop 01/16/19 at 19:05; Status DC Atorvastatin Calcium (Lipitor) 20 mg QHS PO Last administered on 01/14/19 21:13 ; Start 01/13/19 at 21:00; Stop 01/15/19 at 14:35; Status DC Carvedilol (Coreg) 25 mg BIDWMEALS PO Last administered on 01/16/19 16:19; Start 01/13/19 at 10:00; Stop 01/16/19 at 19:05; Status DC Clopidogrel Bisulfate (Plavix) 75 mg DAILY PO Last administered on 01/16/19 09: 12; Start 01/13/19 at 10:00; Stop 01/16/19 at 19:05; Status DC Fluticasone Propionate (Flonase) 2 spray DAILY NS Last administered on 3/6/ 19at 09:12; Start 01/13/19 at 10:00; Stop 01/16/19 at 19:05; Status DC Isosorbide Mononitrate (Imdur) 60 mg DAILY PO Last administered on 01/16/19at 09: 12; Start 01/13/19 at 10:00; Stop 01/16/19 at 19:05; Status DC Albuterol Sulfate (Ventolin Neb Soln) 2.5 mg PRN Q6HRS PRN NEB SHORTNESS OF BREATH; Start 01/13/19 at 09:30; Stop 01/16/19 at 19:05; Status DC Hydralazine HCl (Apresoline) 100 mg TID PO Last administered on 01/16/19at 13:44 ; Start 01/13/19 at 10:00; Stop 01/16/19 at 19:05; Status DC Pantoprazole Sodium (Protonix) 40 mg BIDAC PO Last administered on 01/16/19at 16: 18; Start 01/13/19 at 10:00; Stop 01/16/19 at 19:05; Status DC Polysaccharide Iron Complex (Niferex 150) 150 mg DAILY PO Last administered on 01/16/19 09:12; Start 01/14/19 at 09:00; Stop 01/16/19 at 19:05; Status DC Albuterol/ Ipratropium (Duoneb) 3 ml QID NEB Last administered on 01/16/19at 15: 36; Start 01/13/19 at 13:00; Stop 01/16/19 at 19:05; Status DC Enoxaparin Sodium (Lovenox Per Pharmacy Prophylaxis Dosing) 1 each PRN DAILY PRN MC SEE COMMENTS; Start 01/13/19 at 12:45; Stop 01/16/19 at 19:05; Status DC Enoxaparin Sodium (Lovenox 40mg Syringe) 40 mg DAILY SQ Last administered on 01/15/19at 11:12; Start 01/13/19 at 13:00; Stop 01/16/19 at 19:05; Status DC Lorazepam (Ativan) 1 mg ONCE ONCE IV Last administered on 01/13/19at 14:24; Start 01/13/19 at 12:45; Stop 01/13/19 at 12:46; Status DC Methylprednisolone Sodium Succinate (SOLU-Medrol 40MG VIAL) 40 mg Q12HR IV Last administered on 01/16/19at 09:11; Start 01/14/19 at 21:00; Stop 01/16/19 at 19: 05; Status DC Colchicine (Colcrys) 0.6 mg DAILY PO ; Start 01/14/19 at 17:00; Stop 01/14/19 at 17:22; Status DC Regadenoson (Lexiscan) 0.4 mg 1X ONCE IV Last administered on 01/15/19at 08:30; Start 01/15/19 at 08:30; Stop 01/15/19 at 08:31; Status DC Atorvastatin Calcium (Lipitor) 40 mg QHS PO Last administered on 01/15/19at 19:59 ; Start 01/15/19 at 21:00; Stop 01/16/19 at 19:05; Status DC Diphenhydramine HCl (Benadryl) 25 mg PRN Q6HRS PRN PO ITCHING Last administered on 01/16/19at 04:24; Start 01/16/19 at 04:15; Stop 01/16/19 at 19:05; Status DC Amlodipine Besylate (Norvasc) 5 mg DAILY PO Last administered on 01/16/19at 13:45 ; Start 01/16/19 at 12:00; Stop 01/16/19 at 19:05; Status DC Acetaminophen/ Hydrocodone Bitart (Lortab 5/325) 1 tab 1X ONCE PO Last administered on 01/16/19at 16:16; Start 01/16/19 at 16:30; Stop 01/16/19 at 16:31; Status DC Active Scripts Active Prednisone 20 Mg Tablet 1 Tab PO DAILY 5 Days Hydrocodone-Acetamin 5-325 mg (Hydrocodone/Acetaminophen) 1 Each Tablet 1 Each PO PRN Q6HRS PRN 6 Days [Pantoprazole] 40 MG Tablet.dr 40 Mg PO BIDAC Ventolin Hfa Inhaler (Albuterol Sulfate) 18 Gm Hfa.aer.ad 2 Puff INH Q4HRS 20 Days Furosemide 40 Mg Tablet 40 Mg PO DAILY 30 Days Carvedilol (Carvedilol) 12.5 Mg Tablet 25 Mg PO BIDWMEALS 30 Days Isosorbide Mononitrate Er (Isosorbide Mononitrate) 30 Mg Tab.er.24h 60 Mg PO DAILY 30 Days Hydralazine Hcl 50 Mg Tablet 100 Mg PO TID 30 Days Lipitor (Atorvastatin Calcium) 20 Mg Tablet 1 Tab PO DAILY Fluticasone Propionate Nasal [place] (Fluticasone Propionate) 1 [place] 2 [place] NS DAILY Reported Clopidogrel (Clopidogrel Bisulfate) 75 Mg Tablet 1 Tab PO DAILY Amlodipine Besylate 10 Mg Tablet 10 Mg PO BID LAMIN BEARD MD Jan 24, 2019 13:40
[2019-04-09] MEDS ORDERED: OXYC1TAB7 PO (13:07)
== END 2019-01-16 17:40 | disposition home or self-care (01) | DRG 280 ==
LOC: ER 21:19 → 2 SOUTH 23:34 → EEVIPCON 23:34 → 2 SOUTH 01-15 11:03
PROVIDERS: ADMIT Internal Medicine; ATTEND Internal Medicine
DX: I21.A1 Myocardial infarction type 2 (principal); I50.43 Acute on chronic combined systolic (congestive) and diastolic (congestive) heart failure; J96.01 Acute respiratory failure with hypoxia; E85.4 Organ-limited amyloidosis; I13.0 Hypertensive heart and chronic kidney disease with heart failure and stage 1 through stage 4 chronic kidney disease, or unspecified chronic kidney disease; I42.0 Dilated cardiomyopathy; I43 Cardiomyopathy in diseases classified elsewhere; I47.1 Supraventricular tachycardia; D64.9 Anemia, unspecified; E61.1 Iron deficiency; E78.5 Hyperlipidemia, unspecified; F17.210 Nicotine dependence, cigarettes, uncomplicated; G47.33 Obstructive sleep apnea (adult) (pediatric); I25.119 Atherosclerotic heart disease of native coronary artery with unspecified angina pectoris; I25.2 Old myocardial infarction; F14.10 Cocaine abuse, uncomplicated; I27.29 Other secondary pulmonary hypertension; M19.90 Unspecified osteoarthritis, unspecified site; I34.0 Nonrheumatic mitral (valve) insufficiency; J44.9 Chronic obstructive pulmonary disease, unspecified; N18.3 Chronic kidney disease, stage 3 (moderate); Z82.49 Family history of ischemic heart disease and other diseases of the circulatory system; Z86.73 Personal history of transient ischemic attack (TIA), and cerebral infarction without residual deficits; Z95.5 Presence of coronary angioplasty implant and graft; Z87.11 Personal history of peptic ulcer disease; Z88.8 Allergy status to other drugs, medicaments and biological substances; Z90.49 Acquired absence of other specified parts of digestive tract
CPT/HCPCS: 36415; 71046; 78452; 78582; 80048; 80053; 80061; 80307; 81001; 82553; 82607; 83036; 83540; 83550; 83690; 83735; 83880; 84484; 84550; 85007; 85025; 85027; 85379; 85610; 85651; 86140; 93005; 93017; 93970; 94640; 94760; 96374; 96375; 96376; A9500; A9540; A9558; J0360; J1650; J2060; J2785; J2920; J3010; J7620; Q0163; 99285-25

== ENCOUNTER 2019-01-24 21:38 | Inpatient (IN) | payer SELFPAY ==
[~2019-01-24] VITALS: Ht 182.9 cm; Wt 99.9 kg
[~2019-01-24 21:38] MED LIST changes: +HYDR-2759 PO
[2019-01-25] MEDS ORDERED: LABETALOL 20 MG/4 ML DISP.SYRIN. IVP ONE
[2019-01-25] MEDS ORDERED: MORPHINE SULFATE 4 MG/ML VIAL. IV ONE (00:15)
[2019-01-25 00:48] LABS: PROTHROMBIN TIME PATIENT 14.3 SEC (11.7-14.0)
[2019-01-25 00:49] LABS: CALCIUM 8.7 mg/dL (8.5-10.1); CREATININE 1.6 mg/dL (0.7-1.3); GFR 55.4; POTASSIUM 4.8 mmol/L (3.5-5.1)
[2019-01-25 00:56] LABS: ALBUMIN 2.7 g/dL (3.4-5.0); ALBUMIN/GLOBULIN RATIO 0.9 (1.0-1.7); BASO # 0.1 x10^3/uL (0.0-0.2); BASO % 1 % (0-3); EOS # 0.1 x10^3/uL (0.0-0.7); EOS % 1 % (0-3); HEMATOCRIT 28.7 % (39.0-53.0); HEMOGLOBIN 8.5 g/dL (13.0-17.5); LYMPH # 3.1 x10^3/uL (1.0-4.8); LYMPH % 41 % (24-48); MAGNESIUM 2.2 mg/dL (1.8-2.4); MEAN CORPUSCULAR HEMOGLOBIN 19 pg (25-35); MEAN CORPUSCULAR HGB CONC 30 g/dL (31-37); MEAN CORPUSCULAR VOLUME 64 fL (79-100); MONO # 0.8 x10^3/uL (0.0-1.1); MONO % 10 % (0-9); NEUT # 3.6 x10^3uL (1.8-7.7); NEUT % 47 % (31-73); PLATELET COUNT 257 x10^3/uL (140-400); RED BLOOD COUNT 4.48 x10^6/uL (4.30-5.70); RED CELL DISTRIBUTION WIDTH 24.1 % (11.5-14.5); TOTAL BILIRUBIN 0.4 mg/dL (0.2-1.0); TOTAL PROTEIN 5.8 g/dL (6.4-8.2); WHITE BLOOD COUNT 7.7 x10^3/uL (4.0-11.0)
--- NOTE | 2019-01-25 01:49 | PHYS DOC ---
Past Medical History Past Medical History: CHF, COPD, CVA, Hypertension, [place], Renal Failure Additional Past Medical Histor: UPPER GI BLEED, irregular heart beat, BEV, STAGE Past Surgical History: No Surgical History Additional Past Surgical Histo: cardiac cath with stent placement Alcohol Use: None Drug Use: None Adult General Chief Complaint Chief Complaint: SHORTNESS OF BREATH HPI HPI Patient is a 53 year old male with history of hypertension, CHF, COPD, CVA, renal failure, who presents to the ED today complaining of shortness of breath for 2 days. Patient states he was discharged from the hospital 2 days ago with shortness of breath. He states symptoms have gotten worse. He states symptoms are mostly on exertion. Patient denies any chest pain. He states he supposed to follow-up with his own PCP but could not get an appointment until the end of the month. He is also complaining of bilateral lower extremity edema, he states he feels swollen all the way from the toes to the thighs. Review of Systems Review of Systems Constitutional: Denies fever or chills [] Eyes: Denies change in visual acuity, redness, or eye pain [] HENT: Denies nasal congestion or sore throat [] Respiratory: Reports shortness of breath. Denies cough Cardiovascular: No additional information not addressed in HPI [] GI: Denies abdominal pain, nausea, vomiting, bloody stools or diarrhea [] : Denies dysuria or hematuria [] Musculoskeletal: Denies back pain or joint pain [] Integument: Denies rash or skin lesions [] Neurologic: Denies headache, focal weakness or sensory changes [] All other systems were reviewed and found to be within normal limits, except as documented in this note. Current Medications Current Medications Current Medications Medications (Trade) Dose Ordered Sig/Deepa Start Time Stop Time Status Last Admin Dose Admin Aspirin (Children'S Aspirin) 324 mg 1X ONCE 01/25/19 02:00 01/25/19 02:01 01/25/19 01:34 324 MG Furosemide (Lasix) 40 mg DAILY 01/25/19 02:00 01/25/19 01:35 40 MG Labetalol HCl (Normodyne Iv Push) 10 mg 1X ONCE 01/25/19 00:00 01/25/19 00:01 DC 01/25/19 00:21 10 MG Morphine Sulfate (Morphine Sulfate) 4 mg 1X ONCE 01/25/19 00:15 01/25/19 00:16 DC 01/25/19 00:19 4 MG Allergies Allergies Allergies Coded Allergies Type Severity Reaction Last Updated Verified lisinopril Allergy Severe Swelling 08/09/18 Yes Physical Exam Physical Exam Constitutional: Well developed, well nourished, no acute distress, non-toxic appearance. [] HENT: Normocephalic, atraumatic, bilateral external ears normal, oropharynx moist, no oral exudates, nose normal. [] Eyes: PERRLA, EOMI, conjunctiva normal, no discharge. [] Neck: Normal range of motion, no tenderness, supple, no stridor. [] Cardiovascular:Heart rate regular rhythm, no murmur [] Lungs & Thorax: Patient appears short of breath during physical exam, lungs sounded moist Abdomen: Bowel sounds normal, soft, no tenderness, no masses, no pulsatile masses. [] Skin: Warm, dry, no erythema, no rash. [] Back: No tenderness, no CVA tenderness. [] Extremities: No tenderness, no cyanosis, no clubbing, ROM intact, +2 bilateral lower extremity edema, negative Homans sign bilaterally. Neurologic: Alert and oriented X 3, normal motor function, normal sensory function, no focal deficits noted. [] Psychologic: Affect normal, judgement normal, mood normal. [] Current Patient Data Vital Signs Vital Signs Date Time Temp Pulse Resp B/P (MAP) Pulse Ox O2 Delivery O2 Flow Rate FiO2 01/25/19 00:21 90 193/121 01/25/19 00:19 98 Room Air 01/24/19 22:11 97.7 20 97.7 Lab Values Laboratory Tests Test 01/25/19 00:25 White Blood Count 7.7 x10^3/uL (4.0-11.0) Red Blood Count 4.48 x10^6/uL (4.30-5.70) Hemoglobin 8.5 g/dL (13.0-17.5) L Hematocrit 28.7 % (39.0-53.0) L Mean Corpuscular Volume 64 fL (79-100) L Mean Corpuscular Hemoglobin 19 pg (25-35) L Mean Corpuscular Hemoglobin Concent 30 g/dL (31-37) L Red Cell Distribution Width 24.1 % (11.5-14.5) H Platelet Count 257 x10^3/uL (140-400) Neutrophils (%) (Auto) 47 % (31-73) Lymphocytes (%) (Auto) 41 % (24-48) Monocytes (%) (Auto) 10 % (0-9) H Eosinophils (%) (Auto) 1 % (0-3) Basophils (%) (Auto) 1 % (0-3) Neutrophils # (Auto) 3.6 x10^3uL (1.8-7.7) Lymphocytes # (Auto) 3.1 x10^3/uL (1.0-4.8) Monocytes # (Auto) 0.8 x10^3/uL (0.0-1.1) Eosinophils # (Auto) 0.1 x10^3/uL (0.0-0.7) Basophils # (Auto) 0.1 x10^3/uL (0.0-0.2) Platelet Estimate Pending Prothrombin Time 14.3 SEC (11.7-14.0) H Prothrombin Time INR 1.1 (0.8-1.1) Sodium Level 144 mmol/L (136-145) Potassium Level 4.8 mmol/L (3.5-5.1) Chloride Level 109 mmol/L (98-107) H Carbon Dioxide Level 23 mmol/L (21-32) Anion Gap 12 (6-14) Blood Urea Nitrogen 37 mg/dL (8-26) H Creatinine 1.6 mg/dL (0.7-1.3) H Estimated GFR (Cockcroft-Gault) 55.4 BUN/Creatinine Ratio 23 (6-20) H Glucose Level 95 mg/dL (70-99) Calcium Level 8.7 mg/dL (8.5-10.1) Magnesium Level 2.2 mg/dL (1.8-2.4) Total Bilirubin 0.4 mg/dL (0.2-1.0) Aspartate Amino Transferase (AST) 60 U/L (15-37) H Alanine Aminotransferase (ALT) 69 U/L (16-63) H Alkaline Phosphatase 74 U/L (46-116) Creatine Kinase 332 U/L (39-308) H Creatine Kinase MB (Mass) 5.1 ng/mL (0.0-3.6) H Creatine Kinase MB Relative Index 1.5 % (0-4) Troponin I Quantitative 0.222 ng/mL (0.000-0.055) RI-Cmf-I-Type Natriuretic Peptide 7224 pg/mL (0-124) H Total Protein 5.8 g/dL (6.4-8.2) L Albumin 2.7 g/dL (3.4-5.0) L Albumin/Globulin Ratio 0.9 (1.0-1.7) L Laboratory Tests 01/25/19 00:25 Laboratory Tests 01/25/19 00:25 EKG EKG 00:[address] Mary sinus rhythm heart rate 76 no STEMI[] Radiology/Procedures Radiology/Procedures [] Course & Med Decision Making Course & Med Decision Making Pertinent Labs and Imaging studies reviewed. (See chart for details) This is a 53-year-old male patient with history of CHF presenting today complaining of shortness of breath and bilateral lower extremity swelling, symptoms are been going on for 2 days, he was discharged from the hospital 2 days ago for similar complaints. Patient's lungs sounded wet on physical exam. Chest xray noted for CHF, EKG is negative, BNP 7224-patient was given Lasix, CBC with no acute findings, CMP with creatinine 1.6, BUN 37, patient has chronic renal insufficiency. Troponin 0.222, EKG was negative, this troponin is actually better from his admission. He has had elevated troponin during his previous admission, with the last troponin being 0.247, patient has no chest pain, was given an aspirin in the ED. Blood pressure was 174/128 with a heart rate of 95 on arrival to the ED, patient was given 40mg of Lasix, blood pressure has come down to 151/91, breathing has improved. Patient was admitted under -Dr. Mary will give report in AM Routine consult placed for regional sales leader as well as the frontal just. Dragon Disclaimer Dragon Disclaimer This electronic medical record was generated, in whole or in part, using a voice recognition dictation system. Departure Departure Impression: Primary Impression: HTN (hypertension), malignant Additional Impressions: NSTEMI (non-ST elevated myocardial infarction) CHF exacerbation Renal failure (ARF), acute on chronic Disposition: ADMITTED INPATIENT Condition: STABLE Referrals: NO PCP (PCP) Problem Qualifiers Additional Impressions: CHF exacerbation Heart failure type: unspecified Qualified Codes: I50.9 - Heart failure, unspecified Renal failure (ARF), acute on chronic Acute renal failure type: unspecified Chronic kidney disease stage: unspecified stage Qualified Codes: N17.9 - Acute kidney failure, unspecified; N18.9 - Chronic kidney disease, unspecified BRIDGETT JONES APRN Jan 25, 2019 01:49
[2019-01-25] MEDS ORDERED: FUROSEMIDE 40 MG/4 ML VIAL. IVP SCH (02:00)
[2019-01-25] MEDS ORDERED: ASPIRIN CHEWABLE 81 MG TABLET. PO ONE (02:00)
[2019-01-25] MEDS ORDERED: ACETAMINOPHEN 325 MG TABLET. PO PRN (02:15)
[2019-01-25] MEDS ORDERED: ONDANSETRON PF 4 MG/2 ML VIAL. IV PRN (02:15)
[2019-01-25 02:21] LABS: PLT ESTIMATE ADEQUATE (ADEQUATE); POLYCHROMASIA SLIGHT
[2019-01-25 02:22] LABS: HYPOCHROMIA SLIGHT; MICROCYTOSIS MOD; OVALOCYTES OCC; POIKILOCYTOSIS SLIGHT; TARGET CELLS OCC
[2019-01-25 03:11] VITALS: BP 168/121
[2019-01-25] MEDS: MORPHINE SULFATE 4 MG/ML VIAL. IV PRN ×6 (03:24→22:33)
--- NOTE | 2019-01-25 04:12 | RAD ---
Indication:shortness of air TECHNIQUE:Portable AP chest X-ray COMPARISON:01/12/2019 FINDINGS: Heart is moderately enlarged in size. Bilateral interstitial opacities are seen. No pneumothorax or pleural effusion. Visualized bony thorax within normal limits. IMPRESSION: Stable moderate cardiomegaly with interstitial pulmonary edema. Electronically signed by: Pillo Liang DO (01/25/2019 4:10 AM) [id number]
--- NOTE | 2019-01-25 06:45 | EKG ---
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
[2019-01-25 06:52] LABS: BARBITURATES NEG (NEG); BENZODIAZEPINES NEG (NEG); CANNABINOIDS NEG (NEG); COCAINE POS (NEG); METHADONE NEG (NEG); OPIATES POS (NEG); PHENCYCLIDINE NEG (NEG)
[2019-01-25 06:54] LABS: AMPHETAMINE/METHAMPHETAMINE NEG (NEG)
[2019-01-25 06:57] VITALS: BP 170/120
[2019-01-25] MEDS: IPRATRPIUM/ALBUTEROL 0.5/2.5MG 3 ML NEBU. NEB SCH ×4 (07:34→21:37)
[2019-01-25 08:39] LABS: BILIRUBIN,URINE NEGATIVE (NEG); CLARITY,URINE CLEAR; COLOR,URINE YELLOW; NITRITE,URINE NEGATIVE (NEG); PH,URINE 5.5; PROTEIN,URINE NEGATIVE (NEG-TRACE); UROBILINOGEN,URINE 0.2 mg/dL (0.2 mg/dL)
--- NOTE | 2019-01-25 08:55 | NUR ---
Notified Dr. Pulido of elevated blood pressure of 170/120, received orders to re-start home blood pressure medications and new order for PRN IV hydralazine.
[2019-01-25 08:57] LABS: RBC,URINE OCC /HPF (0-2); WBC,URINE OCC /HPF (0-4)
[2019-01-25 08:58] LABS: BACTERIA,URINE 0 /HPF (0-FEW); SQUAMOUS EPITHELIAL CELL,UR OCC /LPF
[2019-01-25] MEDS ORDERED: hydrALAZINE 20 MG/ML VIAL. IVP PRN (09:00)
[2019-01-25] MEDS ORDERED: ISOSORBIDE MONONITRATE ER 30 MG TAB.ER.24H PO SCH (09:00)
[2019-01-25] MEDS: CARVEDILOL 12.5 MG TABLET. PO SCH ×2 (09:03→15:46)
[2019-01-25] MEDS: amLODIPine BESYLATE 10 MG TABLET PO SCH ×2 (09:04→21:02)
--- NOTE | 2019-01-25 10:43 | PDOC1 ---
History and Physical Date of Admission Date of Admission DATE: 01/25/19 TIME: 10:42 Identification/Chief Complaint Chief Complaint SEEN IN ER presents to the ED today complaining of shortness of breath/ CHEST PAIN X 2 days. Patient states he was discharged from the hospital 2 days ago with shortness of breath. STILL USING COCAINE symptoms have gotten worse. symptoms are mostly on exertion. Patient denies any chest pain. He states he supposed to follow-up with his own PCP but could not get an appointment until the end of the month. 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, C/O BILATERAL LEG PAIN Past Medical History Past Medical History Past Medical History Cardiovascular: CAD, CHF, HTN, Hyperlipidemia, Other Pulmonary: Asthma, COPD CENTRAL NERVOUS SYSTEM: Other GI: No pertinent hx Heme/Onc: No pertinent hx Hepatobiliary: No pertinent hx Psych: No pertinent hx Musculoskeletal: Osteoarthritis Rheumatologic: No pertinent hx Infectious disease: No pertinent hx Renal/: Chronic renal insuff Endocrine: No pertinent hx Past Surgical History Past Surgical History: Tonsillectomy, Other Family History Family History: Hypertension Social History Smoke: <1 pack per day ALCOHOL: none Drugs: None, Other (cocaine prev. ) Cardiovascular: CAD, CHF, HTN, Hyperlipidemia, Other Pulmonary: Asthma, COPD CENTRAL NERVOUS SYSTEM: Other GI: No pertinent hx Heme/Onc: No pertinent hx Hepatobiliary: No pertinent hx Psych: No pertinent hx Musculoskeletal: Osteoarthritis Rheumatologic: No pertinent hx Infectious disease: No pertinent hx Renal/: Chronic renal insuff Endocrine: No pertinent hx Past Surgical History Past Surgical History: Tonsillectomy, Other Family History Family History: Alcohol Abuse, Hypertension Social History Smoke: 1 pack per day ALCOHOL: none Drugs: None, Cocaine, Other Current Problem List Problem List Problems Medical Problems: (1) CHF exacerbation Status: Acute (2) NSTEMI (non-ST elevated myocardial infarction) Status: Acute (3) Renal failure (ARF), acute on chronic Status: Acute Current Medications Current Medications Current Medications Labetalol HCl (Normodyne Iv Push) 10 mg 1X ONCE IVP Last administered on at 00:21; Start 01/25/19 at 00:00; Stop 01/25/19 at 00:01; Status DC Morphine Sulfate (Morphine Sulfate) 4 mg 1X ONCE IV Last administered on at 00:19; Start 01/25/19 at 00:15; Stop 01/25/19 at 00:16; Status DC Aspirin (Children'S Aspirin) 324 mg 1X ONCE PO Last administered on 01/25/19at 01:34; Start 01/25/19 at 02:00; Stop 01/25/19 at 02:01; Status DC Furosemide (Lasix) 40 mg DAILY IVP Last administered on 01/25/19at 01:35; Start 01/25/19 at 02:00 Ondansetron HCl (Zofran) 4 mg PRN Q8HRS PRN IV NAUSEA/VOMITING 1ST CHOICE; Start 01/25/19 at 02:15; Stop 01/26/19 at 02:14 Morphine Sulfate (Morphine Sulfate) 4 mg PRN Q2HR PRN IV SEVERE PAIN Last administered on 01/25/19at 10:20; Start 01/25/19 at 02:15; Stop 01/26/19 at 02:14 Acetaminophen (Tylenol) 650 mg PRN Q4HRS PRN PO FEVER; Start 01/25/19 at 02:15 ; Stop 01/26/19 at 02:14 Albuterol/ Ipratropium (Duoneb) 3 ml RTQID NEB Last administered on 01/25/19at 07:34; Start 01/25/19 at 08:00; Stop 01/26/19 at 07:59 Amlodipine Besylate (Norvasc) 10 mg BID PO Last administered on 01/25/19at 09:04 ; Start 01/25/19 at 09:00 Carvedilol (Coreg) 25 mg BIDWMEALS PO Last administered on 01/25/19at 09:03; Start 01/25/19 at 09:00 Isosorbide Mononitrate (Imdur) 60 mg DAILY PO Last administered on 01/25/19at 09 :04; Start 01/25/19 at 09:00 Hydralazine HCl (Apresoline) 100 mg TID PO Last administered on 01/25/19at 09:03 ; Start 01/25/19 at 09:00 Hydralazine HCl (Apresoline Inj) 10 mg PRN Q4HRS PRN IVP ELEVATED BP, SEE COMMENTS; Start 01/25/19 at 09:00 Active Scripts Active Prednisone 20 Mg Tablet 1 Tab PO DAILY 5 Days Hydrocodone-Acetamin 5-325 mg (Hydrocodone/Acetaminophen) 1 Each Tablet 1 Each PO PRN Q6HRS PRN 6 Days [Pantoprazole] 40 MG Tablet.dr 40 Mg PO BIDAC Ventolin Hfa Inhaler (Albuterol Sulfate) 18 Gm Hfa.aer.ad 2 Puff INH Q4HRS 20 Days Furosemide 40 Mg Tablet 40 Mg PO DAILY 30 Days Carvedilol (Carvedilol) 12.5 Mg Tablet 25 Mg PO BIDWMEALS 30 Days Isosorbide Mononitrate Er (Isosorbide Mononitrate) 30 Mg Tab.er.24h 60 Mg PO DAILY 30 Days Hydralazine Hcl 50 Mg Tablet 100 Mg PO TID 30 Days Lipitor (Atorvastatin Calcium) 20 Mg Tablet 1 Tab PO DAILY Fluticasone Propionate Nasal [place] (Fluticasone Propionate) 1 [place] 2 [place] NS DAILY Reported Clopidogrel (Clopidogrel Bisulfate) 75 Mg Tablet 1 Tab PO DAILY Amlodipine Besylate 10 Mg Tablet 10 Mg PO BID Allergies Allergies: Coded Allergies: lisinopril (Verified Allergy, Severe, Swelling, 08/09/18) caused throat swelling ROS Review of System Review of Systems Review of Systems Constitutional: Denies fever or chills [] Eyes: Denies change in visual acuity, redness, or eye pain [] HENT: Denies nasal congestion or sore throat [] Respiratory: Reports shortness of breath. Denies cough Cardiovascular: No additional information not addressed in HPI [] GI: Denies abdominal pain, nausea, vomiting, bloody stools or diarrhea [] : Denies dysuria or hematuria [] Musculoskeletal: Denies back pain or joint pain [] Integument: Denies rash or skin lesions [] Neurologic: Denies headache, focal weakness or sensory changes [] 14 PT systems were reviewed and found to be within normal limits, except as documented General: YES: Fatigue Physical Exam Physical Exam Physical Exam Physical Exam Constitutional: Well developed, well nourished, no acute distress, non-toxic appearance. [] HENT: Normocephalic, atraumatic, bilateral external ears normal, oropharynx moist, no oral exudates, nose normal. [] Eyes: PERRLA, EOMI, conjunctiva normal, no discharge. [] Neck: Normal range of motion, no tenderness, supple, no stridor. [] Cardiovascular:Heart rate regular rhythm, no murmur [] Lungs & Thorax: Patient appears short of breath during physical exam, lungs sounded moist Abdomen: Bowel sounds normal, soft, no tenderness, no masses, no pulsatile masses. [] Skin: Warm, dry, no erythema, no rash. [] Back: No tenderness, no CVA tenderness. [] Extremities: No tenderness, no cyanosis, no clubbing, ROM intact, +2 bilateral lower extremity edema, negative Homans sign bilaterally. Neurologic: Alert and oriented X 3, normal motor function, normal sensory function, no focal deficits noted. [] Psychologic: Affect normal, judgement normal, mood normal. [] Abdomen: Normal bowel sounds, Soft Vitals Vitals Vital Signs Date Time Temp Pulse Resp B/P (MAP) Pulse Ox O2 Delivery O2 Flow Rate FiO2 01/25/19 10:20 Room Air 01/25/19 09:04 79 170/120 01/25/19 07:36 96 01/25/19 06:57 97.8 18 97.8 Labs Labs Laboratory Tests Test 01/25/19 00:25 01/25/19 03:00 01/25/19 06:00 01/25/19 06:25 White Blood Count 7.7 x10^3/uL (4.0-11.0) Red Blood Count 4.48 x10^6/uL (4.30-5.70) Hemoglobin 8.5 g/dL (13.0-17.5) Hematocrit 28.7 % (39.0-53.0) Mean Corpuscular Volume 64 fL (79-100) Mean Corpuscular Hemoglobin 19 pg (25-35) Mean Corpuscular Hemoglobin Concent 30 g/dL (31-37) Red Cell Distribution Width 24.1 % (11.5-14.5) Platelet Count 257 x10^3/uL (140-400) Neutrophils (%) (Auto) 47 % (31-73) Lymphocytes (%) (Auto) 41 % (24-48) Monocytes (%) (Auto) 10 % (0-9) Eosinophils (%) (Auto) 1 % (0-3) Basophils (%) (Auto) 1 % (0-3) Neutrophils # (Auto) 3.6 x10^3uL (1.8-7.7) Lymphocytes # (Auto) 3.1 x10^3/uL (1.0-4.8) Monocytes # (Auto) 0.8 x10^3/uL (0.0-1.1) Eosinophils # (Auto) 0.1 x10^3/uL (0.0-0.7) Basophils # (Auto) 0.1 x10^3/uL (0.0-0.2) Platelet Estimate Adequate (ADEQUATE) Polychromasia Slight Hypochromasia Slight Poikilocytosis Slight Microcytosis Mod Macrocytosis Slight Target Cells Occ Ovalocytes Occ Prothrombin Time 14.3 SEC (11.7-14.0) Prothromb Time International Ratio 1.1 (0.8-1.1) Sodium Level 144 mmol/L (136-145) Potassium Level 4.8 mmol/L (3.5-5.1) Chloride Level 109 mmol/L (98-107) Carbon Dioxide Level 23 mmol/L (21-32) Anion Gap 12 (6-14) Blood Urea Nitrogen 37 mg/dL (8-26) Creatinine 1.6 mg/dL (0.7-1.3) Estimated GFR (Cockcroft-Gault) 55.4 BUN/Creatinine Ratio 23 (6-20) Glucose Level 95 mg/dL (70-99) Calcium Level 8.7 mg/dL (8.5-10.1) Magnesium Level 2.2 mg/dL (1.8-2.4) Total Bilirubin 0.4 mg/dL (0.2-1.0) Aspartate Amino Transf (AST/SGOT) 60 U/L (15-37) Alanine Aminotransferase (ALT/SGPT) 69 U/L (16-63) Alkaline Phosphatase 74 U/L (46-116) Creatine Kinase 332 U/L (39-308) Creatine Kinase MB (Mass) 5.1 ng/mL (0.0-3.6) Creatine Kinase MB Relative Index 1.5 % (0-4) Troponin I Quantitative 0.222 ng/mL (0.000-0.055) 0.192 ng/mL (0.000-0.055) 0.173 ng/mL (0.000-0.055) MG-Rkk-U-Type Natriuretic Peptide 7224 pg/mL (0-124) Total Protein 5.8 g/dL (6.4-8.2) Albumin 2.7 g/dL (3.4-5.0) Albumin/Globulin Ratio 0.9 (1.0-1.7) Uric Acid 8.5 mg/dL (3.5-7.2) Urine Collection Type Unknown Urine Color Yellow Urine Clarity Clear Urine pH 5.5 Urine Specific [employer] 1.010 Urine Protein Negative mg/dL (NEG-TRACE) Urine Glucose (UA) Negative mg/dL (NEG) Urine Ketones (Stick) Negative mg/dL (NEG) Urine Blood Negative (NEG) Urine Nitrite Negative (NEG) Urine Bilirubin Negative (NEG) Urine Urobilinogen Dipstick 0.2 mg/dL (0.2 mg/dL) Urine Leukocyte Esterase Negative (NEG) Urine RBC Occ /HPF (0-2) Urine WBC Occ /HPF (0-4) Urine Squamous Epithelial Cells Occ /LPF Urine Bacteria 0 /HPF (0-FEW) Urine Mucus Slight /LPF Urine Opiates Screen Pos (NEG) Urine Methadone Screen Neg (NEG) Urine Barbiturates Neg (NEG) Urine Phencyclidine Screen Neg (NEG) Urine Amphetamine/Methamphetamine Neg (NEG) Urine Benzodiazepines Screen Neg (NEG) Urine Cocaine Screen Pos (NEG) Urine Cannabinoids Screen Neg (NEG) Urine Ethyl Alcohol Neg (NEG) Laboratory Tests Test 01/25/19 00:25 01/25/19 03:00 01/25/19 06:00 01/25/19 06:25 White Blood Count 7.7 x10^3/uL (4.0-11.0) Red Blood Count 4.48 x10^6/uL (4.30-5.70) Hemoglobin 8.5 g/dL (13.0-17.5) Hematocrit 28.7 % (39.0-53.0) Mean Corpuscular Volume 64 fL (79-100) Mean Corpuscular Hemoglobin 19 pg (25-35) Mean Corpuscular Hemoglobin Concent 30 g/dL (31-37) Red Cell Distribution Width 24.1 % (11.5-14.5) Platelet Count 257 x10^3/uL (140-400) Neutrophils (%) (Auto) 47 % (31-73) Lymphocytes (%) (Auto) 41 % (24-48) Monocytes (%) (Auto) 10 % (0-9) Eosinophils (%) (Auto) 1 % (0-3) Basophils (%) (Auto) 1 % (0-3) Neutrophils # (Auto) 3.6 x10^3uL (1.8-7.7) Lymphocytes # (Auto) 3.1 x10^3/uL (1.0-4.8) Monocytes # (Auto) 0.8 x10^3/uL (0.0-1.1) Eosinophils # (Auto) 0.1 x10^3/uL (0.0-0.7) Basophils # (Auto) 0.1 x10^3/uL (0.0-0.2) Platelet Estimate Adequate (ADEQUATE) Polychromasia Slight Hypochromasia Slight Poikilocytosis Slight Microcytosis Mod Macrocytosis Slight Target Cells Occ Ovalocytes Occ Prothrombin Time 14.3 SEC (11.7-14.0) Prothromb Time International Ratio 1.1 (0.8-1.1) Sodium Level 144 mmol/L (136-145) Potassium Level 4.8 mmol/L (3.5-5.1) Chloride Level 109 mmol/L (98-107) Carbon Dioxide Level 23 mmol/L (21-32) Anion Gap 12 (6-14) Blood Urea Nitrogen 37 mg/dL (8-26) Creatinine 1.6 mg/dL (0.7-1.3) Estimated GFR (Cockcroft-Gault) 55.4 BUN/Creatinine Ratio 23 (6-20) Glucose Level 95 mg/dL (70-99) Calcium Level 8.7 mg/dL (8.5-10.1) Magnesium Level 2.2 mg/dL (1.8-2.4) Total Bilirubin 0.4 mg/dL (0.2-1.0) Aspartate Amino Transf (AST/SGOT) 60 U/L (15-37) Alanine Aminotransferase (ALT/SGPT) 69 U/L (16-63) Alkaline Phosphatase 74 U/L (46-116) Creatine Kinase 332 U/L (39-308) Creatine Kinase MB (Mass) 5.1 ng/mL (0.0-3.6) Creatine Kinase MB Relative Index 1.5 % (0-4) Troponin I Quantitative 0.222 ng/mL (0.000-0.055) 0.192 ng/mL (0.000-0.055) 0.173 ng/mL (0.000-0.055) MT-Oom-K-Type Natriuretic Peptide 7224 pg/mL (0-124) Total Protein 5.8 g/dL (6.4-8.2) Albumin 2.7 g/dL (3.4-5.0) Albumin/Globulin Ratio 0.9 (1.0-1.7) Uric Acid 8.5 mg/dL (3.5-7.2) Urine Collection Type Unknown Urine Color Yellow Urine Clarity Clear Urine pH 5.5 Urine Specific [employer] 1.010 Urine Protein Negative mg/dL (NEG-TRACE) Urine Glucose (UA) Negative mg/dL (NEG) Urine Ketones (Stick) Negative mg/dL (NEG) Urine Blood Negative (NEG) Urine Nitrite Negative (NEG) Urine Bilirubin Negative (NEG) Urine Urobilinogen Dipstick 0.2 mg/dL (0.2 mg/dL) Urine Leukocyte Esterase Negative (NEG) Urine RBC Occ /HPF (0-2) Urine WBC Occ /HPF (0-4) Urine Squamous Epithelial Cells Occ /LPF Urine Bacteria 0 /HPF (0-FEW) Urine Mucus Slight /LPF Urine Opiates Screen Pos (NEG) Urine Methadone Screen Neg (NEG) Urine Barbiturates Neg (NEG) Urine Phencyclidine Screen Neg (NEG) Urine Amphetamine/Methamphetamine Neg (NEG) Urine Benzodiazepines Screen Neg (NEG) Urine Cocaine Screen Pos (NEG) Urine Cannabinoids Screen Neg (NEG) Urine Ethyl Alcohol Neg (NEG) Images Images LEFT VENTRICLE The Left Ventricle is borderline dilated. There is moderate concentric left ventricular hypertrophy. The systolic function is moderately impaired. The Ejection Fraction is 35%. There is global hypokinesis of the left ventricle. Transmitral Doppler flow pattern is Grade III-reversible restrictive diastolic dysfunction. RIGHT VENTRICLE The right ventricle is mildly dilated. There is normal right ventricular wall thickness. The right ventricular systolic function is normal. ATRIA The left atrium is mildly dilated. The right atrium is mildly dilated. AORTIC VALVE The aortic valve is normal in structure and function. The aortic valve is trileaflet. Doppler and Color Flow revealed mild aortic regurgitation. There is no significant aortic valvular stenosis. MITRAL VALVE The mitral valve is mildly thickened but opens well. There is no evidence of mitral valve prolapse. There is no mitral valve stenosis. Doppler and Color- flow revealed moderate mitral regurgitation. TRICUSPID VALVE The tricuspid valve is normal in structure and function. Doppler and Color Flow revealed mild tricuspid regurgitation. There is moderate pulmonary hypertension. The PA pressure is > 50 mmHg. There is no tricuspid valve prolapse or vegetation. There is no tricuspid valve stenosis. PULMONIC VALVE The pulmonary valve is normal in structure and function. Doppler and Color Flow revealed mild pulmonic valvular regurgitation. There is no pulmonic valvular stenosis. GREAT VESSELS The aortic root is normal in size. The ascending aorta is mildly dilated. The IVC is dilated and collapses <50% with inspiration. PERICARDIAL EFFUSION There is no evidence of significant pericardial effusion. Critical Notification Critical Value: No <Conclusion> The Left Ventricle is borderline dilated. The systolic function is moderately impaired. The Ejection Fraction is 35%. There is global hypokinesis of the left ventricle. There is moderate concentric left ventricular hypertrophy. There is no significant aortic valvular stenosis. Doppler and Color Flow revealed mild aortic regurgitation. Doppler and Color-flow revealed moderate mitral regurgitation. Doppler and Color Flow revealed mild tricuspid regurgitation. There is moderate pulmonary hypertension. The PA pressure is > 50 mmHg. Signed by : Og Romero MD Electronically Approved : 12/21/2018 15:57:32 VTE Prophylaxis Ordered VTE Prophylaxis Devices: No VTE Pharmacological Prophylaxi: Yes Assessment/Plan Assessment/Plan ADMISSION IMPRESSION congestive heart failure cardiomyopathy, UNCONTROLLED HYPERTENSION The Ejection Fraction is 35%. There is global hypokinesis of the left ventricle. There is moderate concentric left ventricular hypertrophy. There is no significant aortic valvular stenosis. Doppler and Color Flow revealed mild aortic regurgitation. Doppler and Color-flow revealed moderate mitral regurgitation. Doppler and Color Flow revealed mild tricuspid regurgitation . 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, history of coronary artery disease with previous stents, chronic obstructive pulmonary disease LEG PAIN EXTREME HIGH RISK FOR SUDDEN CARDIAC ////PER MY CHART REVIEW PLAN ADMIT CVC CARDIOLOGY CONSULT DRUG TREATMENT PROGRAM NEEDED HOME MEDS COMPLETE RECENT PERSONALLY //CHART REVIEWED DVT PROPHYLAXIS ARTERIAL DOPPLER BOTH LEGS Past Medical History Past Medical History: CHF, COPD, CVA, Hypertension, [place], Renal Failure Additional Past Medical Histor: UPPER GI BLEED, irregular heart beat, BEV, STAGE Past Surgical History: No Surgical History Additional Past Surgical Histo: cardiac cath with stent placement Alcohol Use: None Drug Use: None NICOLE PERALTA MD Jan 25, 2019 10:43
[2019-01-25 10:45] VITALS: BP 159/112
--- NOTE | 2019-01-25 12:17 | PDOC2 ---
RICARDO MALONE DOUGH PANNER 01/25/19 1217: CARDIAC CONSULT DATE OF CONSULT Date of Consult DATE: 01/25/19 TIME: 12:07 REASON FOR CONSULT Reason for Consult: NSTEMI REFERRING PHYSICIAN Referring Physician: Phillip SOURCE Source: Chart review, Patient HISTORY OF PRESENT ILLNESS HISTORY OF PRESENT ILLNESS This is a 53 yo male admitted for complains of SOA. He is known to our cardiology group. He is known for CHF, COPD, and CAD. He has had stents placed in [facility] and workup for amyloidosis have been pending due to his financial constraints and lack of health insurance and associated issue with noncompliance. He has been SOA in the last 2 days and increased leg edema. He doubled his lasix and norvasc prior to coming in hoping he will get better. Currently his SOA is better. Currently he complains that he may have gout. Also he is again positive for cocaine and verbalized that it is in his household and last smoked it last week. He still smoke tobacco. CP and palpitation free. PAST MEDICAL HISTORY Past Medical History Cardiovascular: CAD, CHF, HTN, Hyperlipidemia, Other (possible amyloidosis), chronic troponin elevation Pulmonary: Asthma, COPD CENTRAL NERVOUS SYSTEM: None pertinent GI: /DU via EGD, GI bleed via EGD in 09/2018 Heme/Onc: No pertinent hx Hepatobiliary: No pertinent hx Psych: No pertinent hx Musculoskeletal: Osteoarthritis Rheumatologic: No pertinent hx Infectious disease: No pertinent hx Renal/: Chronic renal insuff Endocrine: No pertinent hx PAST SURGICAL HISTORY Past Surgical History Tonsillectomy, Other (coronary stent.) FAMILY HISTORY Family History: Hypertension SOCIAL HISTORY Social History <1 pack per day ALCOHOL: none Drugs: Other (positive for cocaine screen one month ago as above) Lives: with Family CURRENT MEDICATIONS CURRENT MEDICATIONS Current Medications Medications (Trade) Dose Ordered Sig/Deepa Route PRN Reason Start Time Stop Time Status Last Admin Dose Admin Labetalol HCl (Normodyne Iv Push) 10 mg 1X ONCE IVP 01/25/19 00:00 01/25/19 00:01 DC 01/25/19 00:21 Morphine Sulfate (Morphine Sulfate) 4 mg 1X ONCE IV 01/25/19 00:15 01/25/19 00:16 DC 01/25/19 00:19 Aspirin (Children'S Aspirin) 324 mg 1X ONCE PO 01/25/19 02:00 01/25/19 02:01 DC 01/25/19 01:34 Furosemide (Lasix) 40 mg DAILY IVP 01/25/19 02:00 01/25/19 01:35 Morphine Sulfate (Morphine Sulfate) 4 mg PRN Q2HR PRN IV SEVERE PAIN 01/25/19 02:15 01/26/19 02:14 01/25/19 10:20 Albuterol/ Ipratropium (Duoneb) 3 ml RTQID NEB 01/25/19 08:00 01/26/19 07:59 01/25/19 11:50 Amlodipine Besylate (Norvasc) 10 mg BID PO 01/25/19 09:00 01/25/19 09:04 Carvedilol (Coreg) 25 mg BIDWMEALS PO 01/25/19 09:00 01/25/19 09:03 Isosorbide Mononitrate (Imdur) 60 mg DAILY PO 01/25/19 09:00 01/25/19 09:04 Hydralazine HCl (Apresoline) 100 mg TID PO 01/25/19 09:00 01/25/19 09:03 ALLERGIES ALLERGIES: Coded Allergies: lisinopril (Verified Allergy, Severe, Swelling, 08/09/18) caused throat swelling ROS Review of System 14 point ROS evaluated with pertinent positives noted per HPI PHYSICAL EXAM General: Alert, Oriented X3, Cooperative, No acute distress HEENT: Atraumatic, Mucous membr. moist/pink Lungs: Other (basilar crackles) Heart: Regular rate (SR), Other (3/6 systolic murmur to LLS border) Abdomen: Soft, No tenderness Extremities: No cyanosis, Other (3+ bilateral LE pitting edema) Skin: No breakdown, No significant lesion Neuro: Normal speech, Sensation intact Psych/Mental Status: Mental status NL, Mood NL MUSCULOSKELETAL: Osteoarthritic changes both hands VITALS VITALS Vital Signs Date Time Temp Pulse Resp B/P (MAP) Pulse Ox O2 Delivery O2 Flow Rate FiO2 01/25/19 11:51 94 Room Air 01/25/19 10:45 97.5 75 20 159/112 (128) 97.5 LABS Lab: Laboratory Tests Test 01/25/19 00:25 01/25/19 03:00 01/25/19 06:00 3/15/19 06:25 White Blood Count 7.7 x10^3/uL (4.0-11.0) Red Blood Count 4.48 x10^6/uL (4.30-5.70) Hemoglobin 8.5 g/dL (13.0-17.5) Hematocrit 28.7 % (39.0-53.0) Mean Corpuscular Volume 64 fL (79-100) Mean Corpuscular Hemoglobin 19 pg (25-35) Mean Corpuscular Hemoglobin Concent 30 g/dL (31-37) Red Cell Distribution Width 24.1 % (11.5-14.5) Platelet Count 257 x10^3/uL (140-400) Neutrophils (%) (Auto) 47 % (31-73) Lymphocytes (%) (Auto) 41 % (24-48) Monocytes (%) (Auto) 10 % (0-9) Eosinophils (%) (Auto) 1 % (0-3) Basophils (%) (Auto) 1 % (0-3) Neutrophils # (Auto) 3.6 x10^3uL (1.8-7.7) Lymphocytes # (Auto) 3.1 x10^3/uL (1.0-4.8) Monocytes # (Auto) 0.8 x10^3/uL (0.0-1.1) Eosinophils # (Auto) 0.1 x10^3/uL (0.0-0.7) Basophils # (Auto) 0.1 x10^3/uL (0.0-0.2) Platelet Estimate Adequate (ADEQUATE) Polychromasia Slight Hypochromasia Slight Poikilocytosis Slight Microcytosis Mod Macrocytosis Slight Target Cells Occ Ovalocytes Occ Prothrombin Time 14.3 SEC (11.7-14.0) Prothromb Time International Ratio 1.1 (0.8-1.1) Sodium Level 144 mmol/L (136-145) Potassium Level 4.8 mmol/L (3.5-5.1) Chloride Level 109 mmol/L (98-107) Carbon Dioxide Level 23 mmol/L (21-32) Anion Gap 12 (6-14) Blood Urea Nitrogen 37 mg/dL (8-26) Creatinine 1.6 mg/dL (0.7-1.3) Estimated GFR (Cockcroft-Gault) 55.4 BUN/Creatinine Ratio 23 (6-20) Glucose Level 95 mg/dL (70-99) Calcium Level 8.7 mg/dL (8.5-10.1) Magnesium Level 2.2 mg/dL (1.8-2.4) Total Bilirubin 0.4 mg/dL (0.2-1.0) Aspartate Amino Transf (AST/SGOT) 60 U/L (15-37) Alanine Aminotransferase (ALT/SGPT) 69 U/L (16-63) Alkaline Phosphatase 74 U/L (46-116) Creatine Kinase 332 U/L (39-308) Creatine Kinase MB (Mass) 5.1 ng/mL (0.0-3.6) Creatine Kinase MB Relative Index 1.5 % (0-4) Troponin I Quantitative 0.222 ng/mL (0.000-0.055) 0.192 ng/mL (0.000-0.055) 0.173 ng/mL (0.000-0.055) GV-[id number]-Type Natriuretic Peptide 7224 pg/mL (0-124) Total Protein 5.8 g/dL (6.4-8.2) Albumin 2.7 g/dL (3.4-5.0) Albumin/Globulin Ratio 0.9 (1.0-1.7) Uric Acid 8.5 mg/dL (3.5-7.2) Urine Collection Type Unknown Urine Color Yellow Urine Clarity Clear Urine pH 5.5 Urine Specific [place] 1.010 Urine Protein Negative mg/dL (NEG-TRACE) Urine Glucose (UA) Negative mg/dL (NEG) Urine Ketones (Stick) Negative mg/dL (NEG) Urine Blood Negative (NEG) Urine Nitrite Negative (NEG) Urine Bilirubin Negative (NEG) Urine Urobilinogen Dipstick 0.2 mg/dL (0.2 mg/dL) Urine Leukocyte Esterase Negative (NEG) Urine RBC Occ /HPF (0-2) Urine WBC Occ /HPF (0-4) Urine Squamous Epithelial Cells Occ /LPF Urine Bacteria 0 /HPF (0-FEW) Urine Mucus Slight /LPF Urine Opiates Screen Pos (NEG) Urine Methadone Screen Neg (NEG) Urine Barbiturates Neg (NEG) Urine Phencyclidine Screen Neg (NEG) Urine Amphetamine/Methamphetamine Neg (NEG) Urine Benzodiazepines Screen Neg (NEG) Urine Cocaine Screen Pos (NEG) Urine Cannabinoids Screen Neg (NEG) Urine Ethyl Alcohol Neg (NEG) ECHOCARDIOGRAM ECHOCARDIOGRAM <Conclusion> The Left Ventricle is borderline dilated. The systolic function is moderately impaired. The Ejection Fraction is 35%. There is global hypokinesis of the left ventricle. There is moderate concentric left ventricular hypertrophy. There is no significant aortic valvular stenosis. Doppler and Color Flow revealed mild aortic regurgitation. Doppler and Color-flow revealed moderate mitral regurgitation. Doppler and Color Flow revealed mild tricuspid regurgitation. There is moderate pulmonary hypertension. The PA pressure is > 50 mmHg. DATE: 12/21/18 1557 STRESS TEST STRESS TEST Conclusion 1. No evidence of stress induced EKG changes. 2. Large lateral wall defect with mild estephanie-infarct reversibility. 3. Severe LV dysfunction. EF 31% 4. High risk study. DATE: 01/15/19 1323 ASSESSMENT/PLAN ASSESSMENT/PLAN 1. Acute on chronic systolic/diastolic CHF: EF 35% 2. Chronic troponin elevation: multifactorial. ranging from 0.1 to 0.3. EKG SR without acute changes. 3. CAD: PCI/stent placement at in 2016 with patent stent from repeat LHC in 3. COPD with moderate pulmonary HTN with continued tobaccoism 4. Accelerated HTN 5. HLP 6. 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 Bergeron in due to lack of health ins. 7. CKD: Cr stable at 2.1 8. Hx of recent PUD/GI bleed: 09/2018 EGD 9. Hx of substance abuse; +cocaine 10. Chronic normocytic anemia with Fe deficiency 11. Noncompliance Recommendations 1. Continue to diurese with lasix. 2. Discussed cocaine and tobacco cessation 3. Continue with secondary prevention measures. Discussed compliance 4. allergic to ACEi, continue with current BP regimen. 5. SS to f/u with disability application. Amyloidosis w/u as outpt JELENA GRACIA MD 01/25/19 2004: CARDIAC CONSULT ASSESSMENT/PLAN ASSESSMENT/PLAN Patient seen and examined. Agree with ENGINEERING PROGRAMMER's assessment and plan. Acute on chronic combined diastolic and systolic heart failure improved with diuresis Slight trop elevation prob demand ischemia CAD clinically stable Importance of abstinence from drug abuse reemphasized Follow up with for amyloidosis w/u upon DC Thank you for your consultation RICARDO MALONE APRN Jan 25, 2019 12:17 JELENA GRACIA MD Jan 25, 2019 20:04
[2019-01-25] MEDS ORDERED: ISOSORBIDE MONONITRATE ER 30 MG TAB.ER.24H PO ONE (12:30)
[2019-01-25] MEDS: predniSONE 20 MG TABLET PO SCH (12:50)
[2019-01-25] MEDS: CLOPIDOGREL BISULFATE 75 MG TABLET PO SCH (12:50)
[2019-01-25] MEDS: MULTIVITAMIN with MINERAL TABLET. PO SCH (12:52)
[2019-01-25] MEDS: ENOXAPARIN 40 MG/0.4 ML SYRINGE. SQ SCH (12:53)
[2019-01-25] MEDS: FLUTICASONE 50MCG/NASAL SPRAY 16GM BOTTLE. NS SCH (12:57)
[2019-01-25] MEDS ORDERED: FUROSEMIDE 40 MG TABLET. PO SCH (13:00)
[2019-01-25 14:47] VITALS: BP 145/87
--- NOTE | 2019-01-25 14:52 | RAD ---
Bilateral lower extremity arterial Doppler ultrasound HISTORY: PVD, LEG PAIN TECHNIQUE: Color Doppler, grayscale and duplex analysis performed of the right and left lower extremity arterial structures, from the common femoral artery through the runoff vessels. COMPARISON: None are available All velocity measurements are in centimeters per second. Right leg: Triphasic waveforms throughout. Moderate scattered plaque identified. No concerning velocity elevation is identified. Left leg: Triphasic waveforms throughout. Moderate scattered atherosclerotic plaque. No concerning velocity elevation is identified. IMPRESSION: Bilateral atherosclerotic plaque. No evidence of hemodynamically significant stenosis. Electronically signed by: Inocencio Ozuna MD (01/25/2019 2:49 PM) [id number]
[2019-01-25] MEDS: PANTOPRAZOLE 40 MG TABLET.DR. PO SCH (15:45)
[2019-01-25] MEDS: FUROSEMIDE 40 MG/4 ML VIAL. IVP SCH (15:46)
[2019-01-25] MEDS ORDERED: NON FORMULARY ITEM (Albuterol Sulfate (Ventolin Hfa Inhaler) 2 PUFF) INH SCH (16:00)
--- NOTE | 2019-01-25 16:03 | NUR ---
SS following for discharge planning. SS reviewed pt chart. Pt is self pay. Pt is from home with spouse and currently on room air. No discharge needs noted at this time. SS will continue to follow for pending discharge needs.
[2019-01-25 19:20] VITALS: BP 139/88
[2019-01-25] MEDS: HYDROcodone/APAP 5/325MG 1 TAB TABLET PO PRN (19:20)
[2019-01-25] MEDS: ATORVASTATIN CALCIUM 20 MG TABLET PO SCH (21:02)
[2019-01-25 23:37] VITALS: BP 140/87
[2019-01-26 03:20] VITALS: BP 186/106
[2019-01-26] MEDS: HYDROcodone/APAP 5/325MG 1 TAB TABLET PO PRN ×4 (03:40→22:53)
[2019-01-26] MEDS: ALBUTEROL SULFATE 2.5 MG/3 ML NEBU. NEB SCH ×3 (03:57→20:03)
[2019-01-26 04:17] LABS: CALCIUM 8.6 mg/dL (8.5-10.1); GFR 42.8; POTASSIUM 4.7 mmol/L (3.5-5.1)
[2019-01-26 04:19] LABS: BASO % 1 % (0-3); EOS % 0 % (0-3); HEMATOCRIT 28.2 % (39.0-53.0); HEMOGLOBIN 8.4 g/dL (13.0-17.5); LYMPH # 2.8 x10^3/uL (1.0-4.8); LYMPH % 40 % (24-48); MEAN CORPUSCULAR HEMOGLOBIN 19 pg (25-35); MEAN CORPUSCULAR HGB CONC 30 g/dL (31-37); MEAN CORPUSCULAR VOLUME 65 fL (79-100); MONO # 0.5 x10^3/uL (0.0-1.1); MONO % 7 % (0-9); NEUT # 3.7 x10^3uL (1.8-7.7); NEUT % 52 % (31-73); PLATELET COUNT 228 x10^3/uL (140-400); RED BLOOD COUNT 4.34 x10^6/uL (4.30-5.70); RED CELL DISTRIBUTION WIDTH 24.3 % (11.5-14.5)
[2019-01-26 07:10] VITALS: BP 150/91
[2019-01-26] MEDS: IPRATRPIUM/ALBUTEROL 0.5/2.5MG 3 ML NEBU. NEB SCH (07:48)
[2019-01-26] MEDS: amLODIPine BESYLATE 10 MG TABLET PO SCH ×2 (08:08→20:40)
[2019-01-26] MEDS: CLOPIDOGREL BISULFATE 75 MG TABLET PO SCH (08:09)
[2019-01-26] MEDS: MULTIVITAMIN with MINERAL TABLET. PO SCH (08:09)
[2019-01-26] MEDS: ISOSORBIDE MONONITRATE ER 30 MG TAB.ER.24H PO SCH (08:09)
[2019-01-26] MEDS: predniSONE 20 MG TABLET PO SCH (08:09)
[2019-01-26] MEDS: PANTOPRAZOLE 40 MG TABLET.DR. PO SCH ×2 (08:09→16:40)
[2019-01-26] MEDS: FUROSEMIDE 40 MG/4 ML VIAL. IVP SCH ×2 (08:10→16:40)
[2019-01-26] MEDS: CARVEDILOL 12.5 MG TABLET. PO SCH ×2 (08:10→16:40)
[2019-01-26] MEDS ORDERED: ALBUTEROL SULFATE 2.5 MG/3 ML NEBU. NEB PRN (08:45)
--- NOTE | 2019-01-26 09:21 | PDOC ---
PROGRESS NOTES History of Present Illness History of Present Illness Assessment/Plan Assessment/Plan ADMISSION IMPRESSION congestive heart failure cardiomyopathy, UNCONTROLLED HYPERTENSION, BP REMAINS LABILE The Ejection Fraction is 35%. There is global hypokinesis of the left ventricle. There is moderate concentric left ventricular hypertrophy. There is no significant aortic valvular stenosis. Doppler and Color Flow revealed mild aortic regurgitation. Doppler and Color-flow revealed moderate mitral regurgitation. Doppler and Color Flow revealed mild tricuspid regurgitation . 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, history of coronary artery disease with previous stents, chronic obstructive pulmonary disease LEG PAIN EXTREME HIGH RISK FOR SUDDEN CARDIAC ////PER MY CHART REVIEW PLAN ADMIT CVC CARDIOLOGY CONSULT DRUG TREATMENT PROGRAM NEEDED HOME MEDS COMPLETE RECENT PERSONALLY //CHART REVIEWED DVT PROPHYLAXIS ARTERIAL DOPPLER BOTH LEGS Vitals Vitals Vital Signs Date Time Temp Pulse Resp B/P (MAP) Pulse Ox O2 Delivery O2 Flow Rate FiO2 01/26/19 08:10 75 150/91 01/26/19 07:48 100 Room Air 01/26/19 07:10 98.1 16 98.1 Physical Exam General: Alert, Oriented X3, Cooperative, No acute distress Heart: Regular rate (SR), Other (3/6 systolic murmur to LLS border) Lungs: Clear Abdomen: Soft, No tenderness Extremities: No cyanosis, Other (3+ bilateral LE pitting edema) Skin: No breakdown, No significant lesion Labs LABS Bilateral lower extremity arterial Doppler ultrasound HISTORY: PVD, LEG PAIN TECHNIQUE: Color Doppler, grayscale and duplex analysis performed of the right and left lower extremity arterial structures, from the common femoral artery through the runoff vessels. COMPARISON: None are available All velocity measurements are in centimeters per second. Right leg: Triphasic waveforms throughout. Moderate scattered plaque identified. No concerning velocity elevation is identified. Left leg: Triphasic waveforms throughout. Moderate scattered atherosclerotic plaque. No concerning velocity elevation is identified. IMPRESSION: Bilateral atherosclerotic plaque. No evidence of hemodynamically significant stenosis. Electronically signed by: Inocencio Ozuna MD (01/25/2019 2:49 PM) [facility] Laboratory Tests Test 01/25/19 11:45 01/26/19 03:30 Troponin I Quantitative 0.162 ng/mL (0.000-0.055) White Blood Count 7.0 x10^3/uL (4.0-11.0) Red Blood Count 4.34 x10^6/uL (4.30-5.70) Hemoglobin 8.4 g/dL (13.0-17.5) Hematocrit 28.2 % (39.0-53.0) Mean Corpuscular Volume 65 fL (79-100) Mean Corpuscular Hemoglobin 19 pg (25-35) Mean Corpuscular Hemoglobin Concent 30 g/dL (31-37) Red Cell Distribution Width 24.3 % (11.5-14.5) Platelet Count 228 x10^3/uL (140-400) Neutrophils (%) (Auto) 52 % (31-73) Lymphocytes (%) (Auto) 40 % (24-48) Monocytes (%) (Auto) 7 % (0-9) Eosinophils (%) (Auto) 0 % (0-3) Basophils (%) (Auto) 1 % (0-3) Neutrophils # (Auto) 3.7 x10^3uL (1.8-7.7) Lymphocytes # (Auto) 2.8 x10^3/uL (1.0-4.8) Monocytes # (Auto) 0.5 x10^3/uL (0.0-1.1) Eosinophils # (Auto) 0.0 x10^3/uL (0.0-0.7) Basophils # (Auto) 0.0 x10^3/uL (0.0-0.2) Sodium Level 140 mmol/L (136-145) Potassium Level 4.7 mmol/L (3.5-5.1) Chloride Level 105 mmol/L (98-107) Carbon Dioxide Level 25 mmol/L (21-32) Anion Gap 10 (6-14) Blood Urea Nitrogen 34 mg/dL (8-26) Creatinine 2.0 mg/dL (0.7-1.3) Estimated GFR (Cockcroft-Gault) 42.8 Glucose Level 131 mg/dL (70-99) Calcium Level 8.6 mg/dL (8.5-10.1) Assessment and Plan Assessmemt and Plan Problems Medical Problems: (1) CHF exacerbation Status: Acute (2) NSTEMI (non-ST elevated myocardial infarction) Status: Acute (3) Renal failure (ARF), acute on chronic Status: Acute Comment Review of Relevant I have reviewed the following items coleman (where applicable) has been applied. Labs Laboratory Tests Test 01/25/19 00:25 01/25/19 03:00 01/25/19 06:00 01/25/19 06:25 White Blood Count 7.7 x10^3/uL (4.0-11.0) Red Blood Count 4.48 x10^6/uL (4.30-5.70) Hemoglobin 8.5 g/dL (13.0-17.5) Hematocrit 28.7 % (39.0-53.0) Mean Corpuscular Volume 64 fL (79-100) Mean Corpuscular Hemoglobin 19 pg (25-35) Mean Corpuscular Hemoglobin Concent 30 g/dL (31-37) Red Cell Distribution Width 24.1 % (11.5-14.5) Platelet Count 257 x10^3/uL (140-400) Neutrophils (%) (Auto) 47 % (31-73) Lymphocytes (%) (Auto) 41 % (24-48) Monocytes (%) (Auto) 10 % (0-9) Eosinophils (%) (Auto) 1 % (0-3) Basophils (%) (Auto) 1 % (0-3) Neutrophils # (Auto) 3.6 x10^3uL (1.8-7.7) Lymphocytes # (Auto) 3.1 x10^3/uL (1.0-4.8) Monocytes # (Auto) 0.8 x10^3/uL (0.0-1.1) Eosinophils # (Auto) 0.1 x10^3/uL (0.0-0.7) Basophils # (Auto) 0.1 x10^3/uL (0.0-0.2) Platelet Estimate Adequate (ADEQUATE) Polychromasia Slight Hypochromasia Slight Poikilocytosis Slight Microcytosis Mod Macrocytosis Slight Target Cells Occ Ovalocytes Occ Prothrombin Time 14.3 SEC (11.7-14.0) Prothromb Time International Ratio 1.1 (0.8-1.1) Sodium Level 144 mmol/L (136-145) Potassium Level 4.8 mmol/L (3.5-5.1) Chloride Level 109 mmol/L (98-107) Carbon Dioxide Level 23 mmol/L (21-32) Anion Gap 12 (6-14) Blood Urea Nitrogen 37 mg/dL (8-26) Creatinine 1.6 mg/dL (0.7-1.3) Estimated GFR (Cockcroft-Gault) 55.4 BUN/Creatinine Ratio 23 (6-20) Glucose Level 95 mg/dL (70-99) Calcium Level 8.7 mg/dL (8.5-10.1) Magnesium Level 2.2 mg/dL (1.8-2.4) Total Bilirubin 0.4 mg/dL (0.2-1.0) Aspartate Amino Transf (AST/SGOT) 60 U/L (15-37) Alanine Aminotransferase (ALT/SGPT) 69 U/L (16-63) Alkaline Phosphatase 74 U/L (46-116) Creatine Kinase 332 U/L (39-308) Creatine Kinase MB (Mass) 5.1 ng/mL (0.0-3.6) Creatine Kinase MB Relative Index 1.5 % (0-4) Troponin I Quantitative 0.222 ng/mL (0.000-0.055) 0.192 ng/mL (0.000-0.055) 0.173 ng/mL (0.000-0.055) US-Ufl-U-Type Natriuretic Peptide 7224 pg/mL (0-124) Total Protein 5.8 g/dL (6.4-8.2) Albumin 2.7 g/dL (3.4-5.0) Albumin/Globulin Ratio 0.9 (1.0-1.7) Uric Acid 8.5 mg/dL (3.5-7.2) Urine Collection Type Unknown Urine Color Yellow Urine Clarity Clear Urine pH 5.5 Urine Specific [place] 1.010 Urine Protein Negative mg/dL (NEG-TRACE) Urine Glucose (UA) Negative mg/dL (NEG) Urine Ketones (Stick) Negative mg/dL (NEG) Urine Blood Negative (NEG) Urine Nitrite Negative (NEG) Urine Bilirubin Negative (NEG) Urine Urobilinogen Dipstick 0.2 mg/dL (0.2 mg/dL) Urine Leukocyte Esterase Negative (NEG) Urine RBC Occ /HPF (0-2) Urine WBC Occ /HPF (0-4) Urine Squamous Epithelial Cells Occ /LPF Urine Bacteria 0 /HPF (0-FEW) Urine Mucus Slight /LPF Urine Opiates Screen Pos (NEG) Urine Methadone Screen Neg (NEG) Urine Barbiturates Neg (NEG) Urine Phencyclidine Screen Neg (NEG) Urine Amphetamine/Methamphetamine Neg (NEG) Urine Benzodiazepines Screen Neg (NEG) Urine Cocaine Screen Pos (NEG) Urine Cannabinoids Screen Neg (NEG) Urine Ethyl Alcohol Neg (NEG) Test 01/25/19 11:45 01/26/19 03:30 Troponin I Quantitative 0.162 ng/mL (0.000-0.055) White Blood Count 7.0 x10^3/uL (4.0-11.0) Red Blood Count 4.34 x10^6/uL (4.30-5.70) Hemoglobin 8.4 g/dL (13.0-17.5) Hematocrit 28.2 % (39.0-53.0) Mean Corpuscular Volume 65 fL (79-100) Mean Corpuscular Hemoglobin 19 pg (25-35) Mean Corpuscular Hemoglobin Concent 30 g/dL (31-37) Red Cell Distribution Width 24.3 % (11.5-14.5) Platelet Count 228 x10^3/uL (140-400) Neutrophils (%) (Auto) 52 % (31-73) Lymphocytes (%) (Auto) 40 % (24-48) Monocytes (%) (Auto) 7 % (0-9) Eosinophils (%) (Auto) 0 % (0-3) Basophils (%) (Auto) 1 % (0-3) Neutrophils # (Auto) 3.7 x10^3uL (1.8-7.7) Lymphocytes # (Auto) 2.8 x10^3/uL (1.0-4.8) Monocytes # (Auto) 0.5 x10^3/uL (0.0-1.1) Eosinophils # (Auto) 0.0 x10^3/uL (0.0-0.7) Basophils # (Auto) 0.0 x10^3/uL (0.0-0.2) Sodium Level 140 mmol/L (136-145) Potassium Level 4.7 mmol/L (3.5-5.1) Chloride Level 105 mmol/L (98-107) Carbon Dioxide Level 25 mmol/L (21-32) Anion Gap 10 (6-14) Blood Urea Nitrogen 34 mg/dL (8-26) Creatinine 2.0 mg/dL (0.7-1.3) Estimated GFR (Cockcroft-Gault) 42.8 Glucose Level 131 mg/dL (70-99) Calcium Level 8.6 mg/dL (8.5-10.1) Laboratory Tests Test 01/25/19 11:45 01/26/19 03:30 Troponin I Quantitative 0.162 ng/mL (0.000-0.055) White Blood Count 7.0 x10^3/uL (4.0-11.0) Red Blood Count 4.34 x10^6/uL (4.30-5.70) Hemoglobin 8.4 g/dL (13.0-17.5) Hematocrit 28.2 % (39.0-53.0) Mean Corpuscular Volume 65 fL (79-100) Mean Corpuscular Hemoglobin 19 pg (25-35) Mean Corpuscular Hemoglobin Concent 30 g/dL (31-37) Red Cell Distribution Width 24.3 % (11.5-14.5) Platelet Count 228 x10^3/uL (140-400) Neutrophils (%) (Auto) 52 % (31-73) Lymphocytes (%) (Auto) 40 % (24-48) Monocytes (%) (Auto) 7 % (0-9) Eosinophils (%) (Auto) 0 % (0-3) Basophils (%) (Auto) 1 % (0-3) Neutrophils # (Auto) 3.7 x10^3uL (1.8-7.7) Lymphocytes # (Auto) 2.8 x10^3/uL (1.0-4.8) Monocytes # (Auto) 0.5 x10^3/uL (0.0-1.1) Eosinophils # (Auto) 0.0 x10^3/uL (0.0-0.7) Basophils # (Auto) 0.0 x10^3/uL (0.0-0.2) Sodium Level 140 mmol/L (136-145) Potassium Level 4.7 mmol/L (3.5-5.1) Chloride Level 105 mmol/L (98-107) Carbon Dioxide Level 25 mmol/L (21-32) Anion Gap 10 (6-14) Blood Urea Nitrogen 34 mg/dL (8-26) Creatinine 2.0 mg/dL (0.7-1.3) Estimated GFR (Cockcroft-Gault) 42.8 Glucose Level 131 mg/dL (70-99) Calcium Level 8.6 mg/dL (8.5-10.1) Medications Current Medications Labetalol HCl (Normodyne Iv Push) 10 mg 1X ONCE IVP Last administered on at 00:21; Start 01/25/19 at 00:00; Stop 01/25/19 at 00:01; Status DC Morphine Sulfate (Morphine Sulfate) 4 mg 1X ONCE IV Last administered on at 00:19; Start 01/25/19 at 00:15; Stop 01/25/19 at 00:16; Status DC Aspirin (Children'S Aspirin) 324 mg 1X ONCE PO Last administered on 01/25/19at 01:34; Start 01/25/19 at 02:00; Stop 01/25/19 at 02:01; Status DC Furosemide (Lasix) 40 mg DAILY IVP Last administered on 01/25/19at 01:35; Start 01/25/19 at 02:00; Stop 01/25/19 at 12:34; Status DC Ondansetron HCl (Zofran) 4 mg PRN Q8HRS PRN IV NAUSEA/VOMITING 1ST CHOICE; Start 01/25/19 at 02:15; Stop 01/26/19 at 02:14; Status DC Morphine Sulfate (Morphine Sulfate) 4 mg PRN Q2HR PRN IV SEVERE PAIN Last administered on 01/25/19at 22:33; Start 01/25/19 at 02:15; Stop 01/26/19 at 02:14 ; Status DC Acetaminophen (Tylenol) 650 mg PRN Q4HRS PRN PO FEVER; Start 01/25/19 at 02:15 ; Stop 01/26/19 at 02:14; Status DC Albuterol/ Ipratropium (Duoneb) 3 ml RTQID NEB Last administered on 01/26/19at 07:48; Start 01/25/19 at 08:00; Stop 01/26/19 at 07:59; Status DC Amlodipine Besylate (Norvasc) 10 mg BID PO Last administered on 01/26/19at 08:08 ; Start 01/25/19 at 09:00 Carvedilol (Coreg) 25 mg BIDWMEALS PO Last administered on 01/26/19 08:10; Start 01/25/19 at 09:00 Isosorbide Mononitrate (Imdur) 60 mg DAILY PO Last administered on 01/25/19 09 :04; Start 01/25/19 at 09:00; Stop 01/25/19 at 12:34; Status DC Hydralazine HCl (Apresoline) 100 mg TID PO Last administered on 01/26/19 08:09 ; Start 01/25/19 at 09:00 Hydralazine HCl (Apresoline Inj) 10 mg PRN Q4HRS PRN IVP ELEVATED BP, SEE COMMENTS Last administered on 01/26/19 03:39; Start 01/25/19 at 09:00 Multivitamins (Thera M Plus) 1 tab DAILY PO Last administered on 01/26/19 08: 09; Start 01/25/19 at 13:00 Atorvastatin Calcium (Lipitor) 20 mg QHS PO Last administered on 01/25/19 21: 02; Start 01/25/19 at 21:00 Clopidogrel Bisulfate (Plavix) 75 mg DAILY PO Last administered on 01/26/19 08 :09; Start 01/25/19 at 13:00 Fluticasone Propionate (Flonase) 2 spray DAILY NS ; Start 01/25/19 at 13:00 Furosemide (Lasix) 40 mg DAILY PO ; Start 01/25/19 at 13:00; Stop 01/25/19 at 13 :00; Status DC Acetaminophen/ Hydrocodone Bitart (Lortab 5/325) 1 tab PRN Q6HRS PRN PO MODERATE PAIN Last administered on 01/26/19 03:40; Start 01/25/19 at 12:30 Prednisone (Prednisone) 20 mg DAILY PO Last administered on 01/26/19 08:09; Start 01/25/19 at 13:00 Non-Formulary Medication (Albuterol Sulfate (Ventolin Hfa Inhaler)) 2 puff Q4HRS INH ; Start 01/25/19 at 16:00; Status UNV Pantoprazole Sodium (Protonix) 40 mg BIDAC PO Last administered on 01/26/19 08 :09; Start 01/25/19 at 16:30 Enoxaparin Sodium (Lovenox 40mg Syringe) 40 mg Q24H SQ Last administered on at 12:53; Start 01/25/19 at 13:00 Furosemide (Lasix) 40 mg BID94 IVP Last administered on 01/26/19at 08:10; Start 01/25/19 at 16:00 Isosorbide Mononitrate (Imdur) 120 mg DAILY PO Last administered on 01/26/19at 08:09; Start 01/26/19 at 09:00 Isosorbide Mononitrate (Imdur) 60 mg 1X ONCE PO Last administered on at 12:52; Start 01/25/19 at 12:30; Stop 01/25/19 at 12:40; Status DC Albuterol Sulfate (Ventolin Neb Soln) 2.5 mg Q4HRS@0000,0400 NEB ; Start at 00:00; Stop 01/26/19 at 08:40; Status DC Albuterol Sulfate (Ventolin Neb Soln) 2.5 mg BID NEB ; Start 01/26/19 at 21:00 Albuterol Sulfate (Ventolin Neb Soln) 2.5 mg PRN Q4HRS PRN NEB SHORTNESS OF BREATH; Start 01/26/19 at 08:45 Active Scripts Active Prednisone 20 Mg Tablet 1 Tab PO DAILY 5 Days Hydrocodone-Acetamin 5-325 mg (Hydrocodone/Acetaminophen) 1 Each Tablet 1 Each PO PRN Q6HRS PRN 6 Days [Pantoprazole] 40 MG Tablet.dr 40 Mg PO BIDAC Ventolin Hfa Inhaler (Albuterol Sulfate) 18 Gm Hfa.aer.ad 2 Puff INH Q4HRS 20 Days Furosemide 40 Mg Tablet 40 Mg PO DAILY 30 Days Carvedilol (Carvedilol) 12.5 Mg Tablet 25 Mg PO BIDWMEALS 30 Days Isosorbide Mononitrate Er (Isosorbide Mononitrate) 30 Mg Tab.er.24h 60 Mg PO DAILY 30 Days Hydralazine Hcl 50 Mg Tablet 100 Mg PO TID 30 Days Lipitor (Atorvastatin Calcium) 20 Mg Tablet 1 Tab PO DAILY Fluticasone Propionate Nasal [place] (Fluticasone Propionate) 1 [place] 2 [place] NS DAILY Reported Clopidogrel (Clopidogrel Bisulfate) 75 Mg Tablet 1 Tab PO DAILY Amlodipine Besylate 10 Mg Tablet 10 Mg PO BID Vitals/I & O Vital Sign - Last 24 Hours 01/25/19 01/25/19 01/25/19 01/25/19 10:20 10:45 11:51 12:52 Temp 97.5 97.5 Pulse 75 75 Resp 20 B/P (MAP) 159/112 (128) 159/112 Pulse Ox 91 94 O2 Delivery Room Air Room Air Room Air 01/25/19 01/25/19 01/25/19 01/25/19 12:52 12:55 14:47 15:46 Temp 97.4 97.4 Pulse 75 67 67 Resp 20 B/P (MAP) 159/112 145/87 (106) 145/87 Pulse Ox 96 O2 Delivery Room Air Room Air 01/25/19 01/25/19 01/25/19 01/25/19 15:51 15:55 19:20 19:20 Temp 97.9 97.9 Pulse 72 Resp 21 B/P (MAP) 139/88 (105) Pulse Ox 94 95 O2 Delivery Room Air Room Air Room Air Room Air 01/25/19 01/25/19 01/25/19 01/25/19 20:00 21:02 21:02 21:41 Pulse 72 72 B/P (MAP) 139/88 139/88 Pulse Ox 95 O2 Delivery Room Air Room Air 01/25/19 01/25/19 01/25/19 01/26/19 22:33 23:03 23:37 03:20 Temp 97.7 97.4 97.7 97.4 Pulse 73 85 Resp 22 22 B/P (MAP) 140/87 (104) 186/106 (132) Pulse Ox 94 94 O2 Delivery Room Air Room Air Room Air Room Air 01/26/19 01/26/19 01/26/19 01/26/19 03:39 03:40 04:40 07:10 Temp 98.1 98.1 Pulse 83 75 Resp 16 B/P (MAP) 169/117 150/91 (110) Pulse Ox 98 O2 Delivery Room Air Room Air Room Air 01/26/19 01/26/19 01/26/19 01/26/19 07:48 08:08 08:09 08:09 Pulse 75 75 75 B/P (MAP) 150/91 150/91 150/91 Pulse Ox 100 O2 Delivery Room Air 01/26/19 08:10 Pulse 75 B/P (MAP) 150/91 Intake and Output 01/25/19 01/25/19 01/26/19 14:59 22:59 06:59 Intake Total 220 ml 350 ml 480 ml Balance 220 ml 350 ml 480 ml NICOLE PERALTA MD Jan 26, 2019 09:21
[2019-01-26] MEDS: FLUTICASONE 50MCG/NASAL SPRAY 16GM BOTTLE. NS SCH (09:29)
[2019-01-26 11:10] VITALS: BP 117/71
[2019-01-26] MEDS: ENOXAPARIN 40 MG/0.4 ML SYRINGE. SQ SCH (13:53)
[2019-01-26 15:00] VITALS: BP 146/84
[2019-01-26 19:45] VITALS: BP 142/84
[2019-01-26] MEDS: ATORVASTATIN CALCIUM 20 MG TABLET PO SCH (20:40)
[2019-01-26 23:45] VITALS: BP 147/87
[2019-01-27 03:15] VITALS: BP 147/93
[2019-01-27 04:45] LABS: BASO % 0 % (0-3); EOS # 0.1 x10^3/uL (0.0-0.7); EOS % 1 % (0-3); HEMATOCRIT 28.1 % (39.0-53.0); HEMOGLOBIN 8.2 g/dL (13.0-17.5); LYMPH # 2.8 x10^3/uL (1.0-4.8); LYMPH % 34 % (24-48); MEAN CORPUSCULAR HEMOGLOBIN 19 pg (25-35); MEAN CORPUSCULAR HGB CONC 29 g/dL (31-37); MEAN CORPUSCULAR VOLUME 64 fL (79-100); MONO # 0.6 x10^3/uL (0.0-1.1); MONO % 8 % (0-9); NEUT # 4.6 x10^3uL (1.8-7.7); NEUT % 57 % (31-73); PLATELET COUNT 234 x10^3/uL (140-400); RED BLOOD COUNT 4.37 x10^6/uL (4.30-5.70); RED CELL DISTRIBUTION WIDTH 24.7 % (11.5-14.5); WHITE BLOOD COUNT 8.1 x10^3/uL (4.0-11.0)
[2019-01-27 05:07] LABS: ALBUMIN 2.7 g/dL (3.4-5.0); CALCIUM 8.7 mg/dL (8.5-10.1); GFR 42.8; PHOSPHORUS 3.6 mg/dL (2.6-4.7)
[2019-01-27] MEDS: HYDROcodone/APAP 5/325MG 1 TAB TABLET PO PRN ×3 (06:01→20:58)
[2019-01-27 07:11] VITALS: BP 147/92
[2019-01-27] MEDS: ALBUTEROL SULFATE 2.5 MG/3 ML NEBU. NEB SCH ×2 (08:05→19:55)
[2019-01-27] MEDS: MULTIVITAMIN with MINERAL TABLET. PO SCH (08:08)
[2019-01-27] MEDS: ISOSORBIDE MONONITRATE ER 30 MG TAB.ER.24H PO SCH (08:08)
[2019-01-27] MEDS: CLOPIDOGREL BISULFATE 75 MG TABLET PO SCH (08:09)
[2019-01-27] MEDS: amLODIPine BESYLATE 10 MG TABLET PO SCH ×2 (08:09→20:58)
[2019-01-27] MEDS: PANTOPRAZOLE 40 MG TABLET.DR. PO SCH ×2 (08:09→16:42)
[2019-01-27] MEDS: CARVEDILOL 12.5 MG TABLET. PO SCH ×2 (08:09→16:44)
[2019-01-27] MEDS: FUROSEMIDE 40 MG/4 ML VIAL. IVP SCH ×2 (08:09→16:44)
[2019-01-27] MEDS: IRON POLYSACCHARIDE COMPLEX 150 MG CAPSULE PO SCH (08:09)
[2019-01-27] MEDS: predniSONE 20 MG TABLET PO SCH (08:09)
[2019-01-27] MEDS: FLUTICASONE 50MCG/NASAL SPRAY 16GM BOTTLE. NS SCH (08:14)
[2019-01-27 10:49] VITALS: BP 121/79
--- NOTE | 2019-01-27 11:24 | PDOC ---
PROGRESS NOTES History of Present Illness History of Present Illness Assessment/Plan Assessment/Plan ADMISSION IMPRESSION congestive heart failure cardiomyopathy, UNCONTROLLED HYPERTENSION, BP REMAINS LABILE on coreg 25 mg po bid The Ejection Fraction is 35%. There is global hypokinesis of the left ventricle. There is moderate concentric left ventricular hypertrophy. There is no significant aortic valvular stenosis. Doppler and Color Flow revealed mild aortic regurgitation. Doppler and Color-flow revealed moderate mitral regurgitation. Doppler and Color Flow revealed mild tricuspid regurgitation . 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, history of coronary artery disease with previous stents, chronic obstructive pulmonary disease LEG PAIN EXTREME HIGH RISK FOR SUDDEN CARDIAC ////PER MY CHART REVIEW PLAN ADMIT CVC CARDIOLOGY CONSULT DRUG TREATMENT PROGRAM NEEDED HOME MEDS COMPLETE RECENT PERSONALLY reviewed //CHART REVIEWED DVT PROPHYLAXIS ARTERIAL DOPPLER BOTH LEGS ok 01/27 long talk reg need to cease drug use completely, he is seeing [facility] as[facility] for counseling, is trying to stop cocaine use as much as possible, suggested attending narcotics anonymous 35 min visit time Vitals Vitals Vital Signs Date Time Temp Pulse Resp B/P (MAP) Pulse Ox O2 Delivery O2 Flow Rate FiO2 01/27/19 10:49 97.6 68 18 121/79 (93) 98 Room Air 97.6 Physical Exam General: Alert, Oriented X3, Cooperative, No acute distress Heart: Regular rate (SR), Other (3/6 systolic murmur to LLS border) Lungs: Clear Abdomen: Soft, No tenderness Extremities: No cyanosis, Other (3+ bilateral LE pitting edema) Skin: No breakdown, No significant lesion Labs LABS Laboratory Tests Test 01/27/19 04:00 01/27/19 04:30 White Blood Count 8.1 x10^3/uL (4.0-11.0) Red Blood Count 4.37 x10^6/uL (4.30-5.70) Hemoglobin 8.2 g/dL (13.0-17.5) Hematocrit 28.1 % (39.0-53.0) Mean Corpuscular Volume 64 fL (79-100) Mean Corpuscular Hemoglobin 19 pg (25-35) Mean Corpuscular Hemoglobin Concent 29 g/dL (31-37) Red Cell Distribution Width 24.7 % (11.5-14.5) Platelet Count 234 x10^3/uL (140-400) Neutrophils (%) (Auto) 57 % (31-73) Lymphocytes (%) (Auto) 34 % (24-48) Monocytes (%) (Auto) 8 % (0-9) Eosinophils (%) (Auto) 1 % (0-3) Basophils (%) (Auto) 0 % (0-3) Neutrophils # (Auto) 4.6 x10^3uL (1.8-7.7) Lymphocytes # (Auto) 2.8 x10^3/uL (1.0-4.8) Monocytes # (Auto) 0.6 x10^3/uL (0.0-1.1) Eosinophils # (Auto) 0.1 x10^3/uL (0.0-0.7) Basophils # (Auto) 0.0 x10^3/uL (0.0-0.2) Sodium Level 142 mmol/L (136-145) Potassium Level 4.0 mmol/L (3.5-5.1) Chloride Level 106 mmol/L (98-107) Carbon Dioxide Level 28 mmol/L (21-32) Anion Gap 8 (6-14) Blood Urea Nitrogen 31 mg/dL (8-26) Creatinine 2.0 mg/dL (0.7-1.3) Estimated GFR (Cockcroft-Gault) 42.8 Glucose Level 106 mg/dL (70-99) Calcium Level 8.7 mg/dL (8.5-10.1) Phosphorus Level 3.6 mg/dL (2.6-4.7) Albumin 2.7 g/dL (3.4-5.0) Assessment and Plan Assessmemt and Plan Problems Medical Problems: (1) CHF exacerbation Status: Acute (2) NSTEMI (non-ST elevated myocardial infarction) Status: Acute (3) Renal failure (ARF), acute on chronic Status: Acute Comment Review of Relevant I have reviewed the following items coleman (where applicable) has been applied. Labs Laboratory Tests Test 01/25/19 11:45 01/26/19 03:30 01/27/19 04:00 01/27/19 04:30 Troponin I Quantitative 0.162 ng/mL (0.000-0.055) White Blood Count 7.0 x10^3/uL (4.0-11.0) 8.1 x10^3/uL (4.0-11.0) Red Blood Count 4.34 x10^6/uL (4.30-5.70) 4.37 x10^6/uL (4.30-5.70) Hemoglobin 8.4 g/dL (13.0-17.5) 8.2 g/dL (13.0-17.5) Hematocrit 28.2 % (39.0-53.0) 28.1 % (39.0-53.0) Mean Corpuscular Volume 65 fL (79-100) 64 fL (79-100) Mean Corpuscular Hemoglobin 19 pg (25-35) 19 pg (25-35) Mean Corpuscular Hemoglobin Concent 30 g/dL (31-37) 29 g/dL (31-37) Red Cell Distribution Width 24.3 % (11.5-14.5) 24.7 % (11.5-14.5) Platelet Count 228 x10^3/uL (140-400) 234 x10^3/uL (140-400) Neutrophils (%) (Auto) 52 % (31-73) 57 % (31-73) Lymphocytes (%) (Auto) 40 % (24-48) 34 % (24-48) Monocytes (%) (Auto) 7 % (0-9) 8 % (0-9) Eosinophils (%) (Auto) 0 % (0-3) 1 % (0-3) Basophils (%) (Auto) 1 % (0-3) 0 % (0-3) Neutrophils # (Auto) 3.7 x10^3uL (1.8-7.7) 4.6 x10^3uL (1.8-7.7) Lymphocytes # (Auto) 2.8 x10^3/uL (1.0-4.8) 2.8 x10^3/uL (1.0-4.8) Monocytes # (Auto) 0.5 x10^3/uL (0.0-1.1) 0.6 x10^3/uL (0.0-1.1) Eosinophils # (Auto) 0.0 x10^3/uL (0.0-0.7) 0.1 x10^3/uL (0.0-0.7) Basophils # (Auto) 0.0 x10^3/uL (0.0-0.2) 0.0 x10^3/uL (0.0-0.2) Sodium Level 140 mmol/L (136-145) 142 mmol/L (136-145) Potassium Level 4.7 mmol/L (3.5-5.1) 4.0 mmol/L (3.5-5.1) Chloride Level 105 mmol/L (98-107) 106 mmol/L (98-107) Carbon Dioxide Level 25 mmol/L (21-32) 28 mmol/L (21-32) Anion Gap 10 (6-14) 8 (6-14) Blood Urea Nitrogen 34 mg/dL (8-26) 31 mg/dL (8-26) Creatinine 2.0 mg/dL (0.7-1.3) 2.0 mg/dL (0.7-1.3) Estimated GFR (Cockcroft-Gault) 42.8 42.8 Glucose Level 131 mg/dL (70-99) 106 mg/dL (70-99) Calcium Level 8.6 mg/dL (8.5-10.1) 8.7 mg/dL (8.5-10.1) Phosphorus Level 3.6 mg/dL (2.6-4.7) Albumin 2.7 g/dL (3.4-5.0) Laboratory Tests Test 01/27/19 04:00 01/27/19 04:30 White Blood Count 8.1 x10^3/uL (4.0-11.0) Red Blood Count 4.37 x10^6/uL (4.30-5.70) Hemoglobin 8.2 g/dL (13.0-17.5) Hematocrit 28.1 % (39.0-53.0) Mean Corpuscular Volume 64 fL (79-100) Mean Corpuscular Hemoglobin 19 pg (25-35) Mean Corpuscular Hemoglobin Concent 29 g/dL (31-37) Red Cell Distribution Width 24.7 % (11.5-14.5) Platelet Count 234 x10^3/uL (140-400) Neutrophils (%) (Auto) 57 % (31-73) Lymphocytes (%) (Auto) 34 % (24-48) Monocytes (%) (Auto) 8 % (0-9) Eosinophils (%) (Auto) 1 % (0-3) Basophils (%) (Auto) 0 % (0-3) Neutrophils # (Auto) 4.6 x10^3uL (1.8-7.7) Lymphocytes # (Auto) 2.8 x10^3/uL (1.0-4.8) Monocytes # (Auto) 0.6 x10^3/uL (0.0-1.1) Eosinophils # (Auto) 0.1 x10^3/uL (0.0-0.7) Basophils # (Auto) 0.0 x10^3/uL (0.0-0.2) Sodium Level 142 mmol/L (136-145) Potassium Level 4.0 mmol/L (3.5-5.1) Chloride Level 106 mmol/L (98-107) Carbon Dioxide Level 28 mmol/L (21-32) Anion Gap 8 (6-14) Blood Urea Nitrogen 31 mg/dL (8-26) Creatinine 2.0 mg/dL (0.7-1.3) Estimated GFR (Cockcroft-Gault) 42.8 Glucose Level 106 mg/dL (70-99) Calcium Level 8.7 mg/dL (8.5-10.1) Phosphorus Level 3.6 mg/dL (2.6-4.7) Albumin 2.7 g/dL (3.4-5.0) Medications Current Medications Labetalol HCl (Normodyne Iv Push) 10 mg 1X ONCE IVP Last administered on at 00:21; Start 01/25/19 at 00:00; Stop 01/25/19 at 00:01; Status DC Morphine Sulfate (Morphine Sulfate) 4 mg 1X ONCE IV Last administered on at 00:19; Start 01/25/19 at 00:15; Stop 01/25/19 at 00:16; Status DC Aspirin (Children'S Aspirin) 324 mg 1X ONCE PO Last administered on 01/25/19at 01:34; Start 01/25/19 at 02:00; Stop 01/25/19 at 02:01; Status DC Furosemide (Lasix) 40 mg DAILY IVP Last administered on 01/25/19at 01:35; Start 01/25/19 at 02:00; Stop 01/25/19 at 12:34; Status DC Ondansetron HCl (Zofran) 4 mg PRN Q8HRS PRN IV NAUSEA/VOMITING 1ST CHOICE; Start 01/25/19 at 02:15; Stop 01/26/19 at 02:14; Status DC Morphine Sulfate (Morphine Sulfate) 4 mg PRN Q2HR PRN IV SEVERE PAIN Last administered on 01/25/19at 22:33; Start 01/25/19 at 02:15; Stop 01/26/19 at 02:14 ; Status DC Acetaminophen (Tylenol) 650 mg PRN Q4HRS PRN PO FEVER; Start 01/25/19 at 02:15 ; Stop 01/26/19 at 02:14; Status DC Albuterol/ Ipratropium (Duoneb) 3 ml RTQID NEB Last administered on 01/26/19at 07:48; Start 01/25/19 at 08:00; Stop 01/26/19 at 07:59; Status DC Amlodipine Besylate (Norvasc) 10 mg BID PO Last administered on 01/27/19at 08:09 ; Start 01/25/19 at 09:00 Carvedilol (Coreg) 25 mg BIDWMEALS PO Last administered on 01/27/19 08:09; Start 01/25/19 at 09:00 Isosorbide Mononitrate (Imdur) 60 mg DAILY PO Last administered on 01/25/19at 09 :04; Start 01/25/19 at 09:00; Stop 01/25/19 at 12:34; Status DC Hydralazine HCl (Apresoline) 100 mg TID PO Last administered on 01/27/19at 08:08 ; Start 01/25/19 at 09:00 Hydralazine HCl (Apresoline Inj) 10 mg PRN Q4HRS PRN IVP ELEVATED BP, SEE COMMENTS Last administered on 01/26/19at 03:39; Start 01/25/19 at 09:00 Multivitamins (Thera M Plus) 1 tab DAILY PO Last administered on 01/27/19 08: 08; Start 01/25/19 at 13:00 Atorvastatin Calcium (Lipitor) 20 mg QHS PO Last administered on 01/26/19at 20: 40; Start 01/25/19 at 21:00 Clopidogrel Bisulfate (Plavix) 75 mg DAILY PO Last administered on 01/27/19 08 :09; Start 01/25/19 at 13:00 Fluticasone Propionate (Flonase) 2 spray DAILY NS Last administered on 09:29; Start 01/25/19 at 13:00 Furosemide (Lasix) 40 mg DAILY PO ; Start 01/25/19 at 13:00; Stop 01/25/19 at 13 :00; Status DC Acetaminophen/ Hydrocodone Bitart (Lortab 5/325) 1 tab PRN Q6HRS PRN PO MODERATE PAIN Last administered on 01/27/19 06:01; Start 01/25/19 at 12:30 Prednisone (Prednisone) 20 mg DAILY PO Last administered on 01/27/19 08:09; Start 01/25/19 at 13:00 Non-Formulary Medication (Albuterol Sulfate (Ventolin Hfa Inhaler)) 2 puff Q4HRS INH ; Start 01/25/19 at 16:00; Status UNV Pantoprazole Sodium (Protonix) 40 mg BIDAC PO Last administered on 01/27/19 08 :09; Start 01/25/19 at 16:30 Enoxaparin Sodium (Lovenox 40mg Syringe) 40 mg Q24H SQ Last administered on 13:53; Start 01/25/19 at 13:00 Furosemide (Lasix) 40 mg BID94 IVP Last administered on 01/27/19 08:09; Start 01/25/19 at 16:00 Isosorbide Mononitrate (Imdur) 120 mg DAILY PO Last administered on 01/27/19 08:08; Start 01/26/19 at 09:00 Isosorbide Mononitrate (Imdur) 60 mg 1X ONCE PO Last administered on 12:52; Start 01/25/19 at 12:30; Stop 01/25/19 at 12:40; Status DC Albuterol Sulfate (Ventolin Neb Soln) 2.5 mg Q4HRS@0000,0400 NEB ; Start at 00:00; Stop 01/26/19 at 08:40; Status DC Albuterol Sulfate (Ventolin Neb Soln) 2.5 mg BID NEB Last administered on 3/17/ 19at 08:05; Start 01/26/19 at 21:00 Albuterol Sulfate (Ventolin Neb Soln) 2.5 mg PRN Q4HRS PRN NEB SHORTNESS OF BREATH; Start 01/26/19 at 08:45 Polysaccharide Iron Complex (Niferex 150) 150 mg DAILY PO Last administered on 01/27/19at 08:09; Start 01/27/19 at 09:00 Active Scripts Active Prednisone 20 Mg Tablet 1 Tab PO DAILY 5 Days Hydrocodone-Acetamin 5-325 mg (Hydrocodone/Acetaminophen) 1 Each Tablet 1 Each PO PRN Q6HRS PRN 6 Days [Pantoprazole] 40 MG Tablet.dr 40 Mg PO BIDAC Ventolin Hfa Inhaler (Albuterol Sulfate) 18 Gm Hfa.aer.ad 2 Puff INH Q4HRS 20 Days Furosemide 40 Mg Tablet 40 Mg PO DAILY 30 Days Carvedilol (Carvedilol) 12.5 Mg Tablet 25 Mg PO BIDWMEALS 30 Days Isosorbide Mononitrate Er (Isosorbide Mononitrate) 30 Mg Tab.er.24h 60 Mg PO DAILY 30 Days Hydralazine Hcl 50 Mg Tablet 100 Mg PO TID 30 Days Lipitor (Atorvastatin Calcium) 20 Mg Tablet 1 Tab PO DAILY Fluticasone Propionate Nasal [place] (Fluticasone Propionate) 1 [place] 2 [place] NS DAILY Reported Clopidogrel (Clopidogrel Bisulfate) 75 Mg Tablet 1 Tab PO DAILY Amlodipine Besylate 10 Mg Tablet 10 Mg PO BID Vitals/I & O Vital Sign - Last 24 Hours 01/26/19 01/26/19 01/26/19 01/26/19 13:53 15:00 16:40 17:05 Temp 98.1 98.1 Pulse 71 67 67 Resp 12 B/P (MAP) 117/71 146/84 (104) 146/84 Pulse Ox 97 97 O2 Delivery Room Air Room Air 01/26/19 01/26/19 01/26/19 01/26/19 19:45 20:04 20:08 20:40 Temp 97.8 97.8 Pulse 72 72 Resp 18 B/P (MAP) 142/84 (103) 142/84 Pulse Ox 97 100 O2 Delivery Room Air Room Air Room Air 01/26/19 01/26/19 01/27/19 01/27/19 20:40 23:45 03:15 07:00 Temp 98.5 98.0 98.5 98.0 Pulse 72 75 77 Resp 24 22 B/P (MAP) 142/84 147/87 (107) 147/93 (111) Pulse Ox 97 96 97 O2 Delivery Room Air Room Air Room Air 01/27/19 01/27/19 01/27/19 01/27/19 07:11 07:50 08:05 08:08 Temp 98.1 98.1 Pulse 78 78 Resp 20 B/P (MAP) 147/92 (110) 147/92 Pulse Ox 97 97 O2 Delivery Room Air Room Air Room Air 01/27/19 01/27/19 01/27/19 01/27/19 08:08 08:09 08:09 10:49 Temp 97.6 97.6 Pulse 78 78 78 68 Resp 18 B/P (MAP) 147/92 147/92 147/92 121/79 (93) Pulse Ox 98 O2 Delivery Room Air Intake and Output 01/26/19 01/26/19 01/27/19 14:59 22:59 06:59 Intake Total 230 ml 390 ml Output Total 1600 ml 575 ml Balance -1370 ml -185 ml NICOLE PERALTA MD Jan 27, 2019 11:24
[2019-01-27] MEDS: ENOXAPARIN 40 MG/0.4 ML SYRINGE. SQ SCH (13:52)
[2019-01-27 15:40] VITALS: BP 140/92
[2019-01-27 19:35] VITALS: BP 138/72
[2019-01-27] MEDS: ATORVASTATIN CALCIUM 20 MG TABLET PO SCH (20:58)
[2019-01-27 23:25] VITALS: BP 151/78
[2019-01-28] MEDS: HYDROcodone/APAP 5/325MG 1 TAB TABLET PO PRN ×2 (03:00→08:28)
[2019-01-28 03:32] VITALS: BP 134/73
[2019-01-28 04:41] LABS: ALBUMIN 2.6 g/dL (3.4-5.0); CALCIUM 8.4 mg/dL (8.5-10.1); CREATININE 1.8 mg/dL (0.7-1.3); GFR 48.4; PHOSPHORUS 3.3 mg/dL (2.6-4.7); POTASSIUM 3.6 mmol/L (3.5-5.1)
[2019-01-28 07:55] VITALS: BP 150/94
[2019-01-28] MEDS: ALBUTEROL SULFATE 2.5 MG/3 ML NEBU. NEB SCH (08:12)
[2019-01-28] MEDS: FLUTICASONE 50MCG/NASAL SPRAY 16GM BOTTLE. NS SCH (08:20)
[2019-01-28] MEDS: FUROSEMIDE 40 MG/4 ML VIAL. IVP SCH (08:21)
[2019-01-28] MEDS: CARVEDILOL 12.5 MG TABLET. PO SCH (08:22)
[2019-01-28] MEDS: MULTIVITAMIN with MINERAL TABLET. PO SCH (08:22)
[2019-01-28] MEDS: predniSONE 20 MG TABLET PO SCH (08:22)
[2019-01-28] MEDS: IRON POLYSACCHARIDE COMPLEX 150 MG CAPSULE PO SCH (08:23)
[2019-01-28] MEDS: PANTOPRAZOLE 40 MG TABLET.DR. PO SCH (08:23)
[2019-01-28] MEDS: CLOPIDOGREL BISULFATE 75 MG TABLET PO SCH (08:24)
[2019-01-28] MEDS: ISOSORBIDE MONONITRATE ER 30 MG TAB.ER.24H PO SCH (08:24)
[2019-01-28] MEDS: amLODIPine BESYLATE 10 MG TABLET PO SCH (08:28)
[2019-01-28] MEDS ORDERED: METOPROLOL SUCC 24HR ER 25 MG TAB.ER.24H. PO SCH (09:00)
[2019-01-28 11:20] VITALS: BP 119/72
--- NOTE | 2019-01-28 11:41 | NUR ---
SS following up for discharge planning. SS reviewed pt chart and met with pt's RN. Pt is from home with spouse and is currently on room air. No discharge needs noted at this time. SS will continue to follow for pending discharge needs.
[2019-01-28] MEDS ORDERED: BUMETANIDE 2.5 MG/10 ML VIAL. IV ONE (13:00)
[2019-01-28] MEDS: ENOXAPARIN 40 MG/0.4 ML SYRINGE. SQ SCH (13:54)
[2019-01-28 15:30] VITALS: BP 140/89
--- NOTE | 2019-01-28 16:35 | PDOC3 ---
Discharge Summary Visit Information Date of Admission: Jan 25, 2019 Date of Discharge: Jan 28, 2019 Admitting Diagnosis Comment: congestive heart failure cardiomyopathy, UNCONTROLLED HYPERTENSION The Ejection Fraction is 35%. There is global hypokinesis of the left ventricle. There is moderate concentric left ventricular hypertrophy. There is no significant aortic valvular stenosis. Doppler and Color Flow revealed mild aortic regurgitation. Doppler and Color-flow revealed moderate mitral regurgitation. Doppler and Color Flow revealed mild tricuspid regurgitation . 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 Acute on chronic systolic/diastolic CHF: EF 35% 2. Chronic troponin elevation: multifactorial. ranging from 0.1 to 0.3. EKG SR without acute changes. 3. CAD: PCI/stent placement at in 2017 with patent stent from repeat [facility] in 3. COPD with moderate pulmonary HTN with continued tobaccoism 4. Accelerated HTN 5. HLP 6. 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 Bergeron in due to lack of health ins. 7. CKD: Cr stable at 2.1 8. Hx of recent PUD/GI bleed: 09/2018 EGD 9. Hx of substance abuse; +cocaine 10. Chronic normocytic anemia with Fe deficiency 11. Noncompliance Brief Hospital Course Allergies Allergies Coded Allergies Type Severity Reaction Last Updated Verified lisinopril Allergy Severe Swelling 08/09/18 Yes Vital Signs Vital Signs Date Time Temp Pulse Resp B/P (MAP) Pulse Ox O2 Delivery O2 Flow Rate FiO2 01/28/19 15:30 98.4 85 24 140/89 (106) 98 Room Air 98.4 Lab Results Laboratory Tests Test 01/27/19 04:00 01/27/19 04:30 01/28/19 03:35 White Blood Count 8.1 x10^3/uL (4.0-11.0) Red Blood Count 4.37 x10^6/uL (4.30-5.70) Hemoglobin 8.2 g/dL (13.0-17.5) Hematocrit 28.1 % (39.0-53.0) Mean Corpuscular Volume 64 fL (79-100) Mean Corpuscular Hemoglobin 19 pg (25-35) Mean Corpuscular Hemoglobin Concent 29 g/dL (31-37) Red Cell Distribution Width 24.7 % (11.5-14.5) Platelet Count 234 x10^3/uL (140-400) Neutrophils (%) (Auto) 57 % (31-73) Lymphocytes (%) (Auto) 34 % (24-48) Monocytes (%) (Auto) 8 % (0-9) Eosinophils (%) (Auto) 1 % (0-3) Basophils (%) (Auto) 0 % (0-3) Neutrophils # (Auto) 4.6 x10^3uL (1.8-7.7) Lymphocytes # (Auto) 2.8 x10^3/uL (1.0-4.8) Monocytes # (Auto) 0.6 x10^3/uL (0.0-1.1) Eosinophils # (Auto) 0.1 x10^3/uL (0.0-0.7) Basophils # (Auto) 0.0 x10^3/uL (0.0-0.2) Sodium Level 142 mmol/L (136-145) 142 mmol/L (136-145) Potassium Level 4.0 mmol/L (3.5-5.1) 3.6 mmol/L (3.5-5.1) Chloride Level 106 mmol/L (98-107) 107 mmol/L (98-107) Carbon Dioxide Level 28 mmol/L (21-32) 28 mmol/L (21-32) Anion Gap 8 (6-14) 7 (6-14) Blood Urea Nitrogen 31 mg/dL (8-26) 25 mg/dL (8-26) Creatinine 2.0 mg/dL (0.7-1.3) 1.8 mg/dL (0.7-1.3) Estimated GFR (Cockcroft-Gault) 42.8 48.4 Glucose Level 106 mg/dL (70-99) 106 mg/dL (70-99) Calcium Level 8.7 mg/dL (8.5-10.1) 8.4 mg/dL (8.5-10.1) Phosphorus Level 3.6 mg/dL (2.6-4.7) 3.3 mg/dL (2.6-4.7) Albumin 2.7 g/dL (3.4-5.0) 2.6 g/dL (3.4-5.0) Laboratory Tests Test 01/28/19 03:35 Sodium Level 142 mmol/L (136-145) Potassium Level 3.6 mmol/L (3.5-5.1) Chloride Level 107 mmol/L (98-107) Carbon Dioxide Level 28 mmol/L (21-32) Anion Gap 7 (6-14) Blood Urea Nitrogen 25 mg/dL (8-26) Creatinine 1.8 mg/dL (0.7-1.3) Estimated GFR (Cockcroft-Gault) 48.4 Glucose Level 106 mg/dL (70-99) Calcium Level 8.4 mg/dL (8.5-10.1) Phosphorus Level 3.3 mg/dL (2.6-4.7) Albumin 2.6 g/dL (3.4-5.0) Brief Hospital Course Mr. Blanton is a 53 old male very well-known to the hospitalist program has had at least 3 admissions over the last month for similar presentation of chest discomfort after utilizing cocaine. The patient also has a depressed ejection fraction is evidence on his admission with an ejection fraction of 35% and global hypokinesis of the left ventricle. Patient was seen in consultation by cardiology no further recommendations from their standpoint except to carlos bauer stressing the importance of quitting cocaine use appropriate diet fluid restriction and diuresis was given by her coding consultant which was greatly appreciated. The patient nevertheless does not seem to be completely convinced that is cocaine habit is worsening his medical condition. At the present time the patient lacks insurance and has not been able to continue with his workup for him low doses at that has already been started. He was given aggressive diuresis during his hospital stay with IV Lasix and Bumex with improvement of his symptoms and he was deemed appropriate for discharge since he has been hemodynamically stable over the last 24 hours the patient's weight was decreased during his hospital stay and his clinical picture seems stable upon discharge. Again the importance of quitting cocaine was stressed to the patient. Signs and symptoms of alarm were discussed prior to discharge all of his concerns were addressed to the best of my abilities no changes to his medications were made Gen.: Older than the stated age chronically ill appearing in no apparent distress Head: Normal shape atraumatic Eyes: Pupils equal reactive to light and accommodation, normal conjunctivae and lids Ears: Normal shape Nose: Normal shape no trauma Mouth: No exudates of the back of throat no thrush no lesions Neck: Supple no JVD no carotid bruit or lymphadenopathy no thyromegaly Chest: Lungs clear to auscultation with good inspiratory effort no crackles rales or rhonchi Cardiovascular: S1-S2 regular rhythm no murmurs gallops or rubs Abdomen: Bowel sounds present soft nontender no hepatosplenomegaly appreciated sign Extremities: No clubbing no cyanosis 1+ edema peripheral pulses palpated bilaterally Neurological: Alert awake oriented in person time place and situation, cranial nerves II through XII intact, no motor or sensory deficits appreciated Psych: Appropriate mood, cooperative Discharge Information Condition at Discharge: Improved Follow Up: Weeks (primary care physician in one week) Disposition/Orders: D/C to Home Scheduled Albuterol Sulfate (Ventolin Hfa Inhaler) 18 Gm Hfa.aer.ad, 2 PUFF INH Q4HRS for FOR ASTHMA for 20 Days, #1 Ref 0 Prescribed by: NAKIA ALONSO MD on 08/07/182026 Last Action: Converted on 01/25/191218 by NICOLE PERALTA MD Amlodipine Besylate (Amlodipine Besylate) 10 Mg Tablet, 10 MG PO BID for hypertension, (Reported) Entered as Reported by: GHAZAL KEARNEY on 09/15/18 0014 Last Action: Continued on 01/25/19 0850 by MARTHA PAN Atorvastatin Calcium (Lipitor) 20 Mg Tablet, 1 TAB PO DAILY, #90 Ref 1 Prescribed by: IFTIKHAR KINNEY on 07/04/15 1347 Last Action: Continued on 01/25/191218 by NICOLE PERALTA MD Carvedilol (Carvedilol ) 12.5 Mg Tablet, 25 MG PO BIDWMEALS for 30 Days, #120 Ref 11 Prescribed by: SASHA BAEZA MD on 07/13/18 1215 Last Action: Continued on 01/25/19 0850 by MARTHA PAN Clopidogrel Bisulfate (Clopidogrel) 75 Mg Tablet, 1 TAB PO DAILY for heart/ blood thinner, #90 Ref 1 (Reported) Entered as Reported by: ORION ALANIZ on 12/24/18 1419 Last Action: Continued on 01/25/191218 by NICOLE PERALTA MD Fluticasone Propionate (Fluticasone Propionate Nasal [place]) 1 [place], 2 [place] NS DAILY, #1 Prescribed by: IFTIKHAR KINNEY on 07/04/15 1345 Last Action: Continued on 01/25/191218 by NICOLE PERALTA MD Furosemide (Furosemide) 40 Mg Tablet, 40 MG PO DAILY for 30 Days, #30 Ref 11 Prescribed by: SASHA BAEZA MD on 07/13/181214 Last Action: Continued on 01/25/191218 by NICOLE PERALTA MD Hydralazine Hcl (Hydralazine Hcl) 50 Mg Tablet, 100 MG PO TID for 30 Days, #180 Ref 11 Prescribed by: SASHA BAEZA MD on 07/13/181214 Last Action: Converted on 01/25/19 0850 by MARTHA PAN Isosorbide Mononitrate (Isosorbide Mononitrate Er) 30 Mg Tab.er.24h, 60 MG PO DAILY for 30 Days, #60 Ref 11 Prescribed by: SASHA BAEZA MD on 07/13/181214 Last Action: Continued on 01/25/19 0850 by MARTHA PAN Prednisone (Prednisone) 20 Mg Tablet, 1 TAB PO DAILY for gout for 5 Days, #5 Prescribed by: SAIMA BEE MD on 01/16/19 1508 Last Action: Continued on 01/25/191218 by NICOLE PERALTA MD [Pantoprazole] 40 MG TABLET.DR, 40 MG PO BIDAC, #60 Prescribed by: KOREY CEE on 09/18/18 0734 Last Action: Converted on 01/25/191218 by NICOLE PERALTA MD Scheduled PRN Hydrocodone/Acetaminophen (Hydrocodone-Acetamin 5-325 mg) 1 Each Tablet, 1 EACH PO PRN Q6HRS PRN for PAIN for 6 Days, #18 Prescribed by: SAIMA BEE MD on 01/16/19 1508 Last Action: Continued on 01/25/191218 by MD PAULA DYE HECTOR M MD Jan 28, 2019 16:35
[2019-01-28] MEDS ORDERED: METH4TAB2 PO (17:07)
== END 2019-01-28 17:50 | disposition home or self-care (01) | DRG 304 ==
LOC: ER 21:38 → 2 NORTH 01-25 01:57
PROVIDERS: ADMIT Internal Medicine; ATTEND Internal Medicine
DX: I16.0 Hypertensive urgency (principal); I50.43 Acute on chronic combined systolic (congestive) and diastolic (congestive) heart failure; I24.8 Other forms of acute ischemic heart disease; N17.9 Acute kidney failure, unspecified; I42.9 Cardiomyopathy, unspecified; I13.0 Hypertensive heart and chronic kidney disease with heart failure and stage 1 through stage 4 chronic kidney disease, or unspecified chronic kidney disease; D50.9 Iron deficiency anemia, unspecified; E78.5 Hyperlipidemia, unspecified; F14.10 Cocaine abuse, uncomplicated; F17.210 Nicotine dependence, cigarettes, uncomplicated; G47.33 Obstructive sleep apnea (adult) (pediatric); I25.10 Atherosclerotic heart disease of native coronary artery without angina pectoris; I27.20 Pulmonary hypertension, unspecified; I34.0 Nonrheumatic mitral (valve) insufficiency; M19.90 Unspecified osteoarthritis, unspecified site; J44.9 Chronic obstructive pulmonary disease, unspecified; N18.9 Chronic kidney disease, unspecified; Z82.49 Family history of ischemic heart disease and other diseases of the circulatory system; Z86.73 Personal history of transient ischemic attack (TIA), and cerebral infarction without residual deficits; Z95.5 Presence of coronary angioplasty implant and graft; Z91.19 Patient's noncompliance with other medical treatment and regimen; I25.2 Old myocardial infarction; Z79.899 Other long term (current) drug therapy
CPT/HCPCS: 36415; 71045; 80048; 80053; 80069; 80307; 81001; 82553; 83735; 83880; 84484; 84550; 85025; 85610; 93005; 93925; 94640; 94760; 96374; 96375; J0360; J1650; J1940; J2270; J3490; J7512; J7613; J7620; 99285-25

== ENCOUNTER 2019-02-02 05:40 | Inpatient (IN) | payer SELFPAY ==
[~2019-02-02] VITALS: Ht 182.9 cm; Wt 95.0 kg
[~2019-02-02 05:40] MED LIST changes: +METH4TAB2 PO
[2019-02-02] MEDS ORDERED: FUROSEMIDE 40 MG/4 ML VIAL. IVP ONE (06:00)
[2019-02-02] MEDS ORDERED: NITROGLYCERIN OINT 1 GM PACKET. TP ONE (06:00)
[2019-02-02 06:06] LABS: BASO # 0.1 x10^3/uL (0.0-0.2); BASO % 1 % (0-3); EOS # 0.1 x10^3/uL (0.0-0.7); EOS % 1 % (0-3); HEMATOCRIT 27.4 % (39.0-53.0); HEMOGLOBIN 8.3 g/dL (13.0-17.5); LYMPH # 2.7 x10^3/uL (1.0-4.8); LYMPH % 34 % (24-48); MEAN CORPUSCULAR HEMOGLOBIN 19 pg (25-35); MEAN CORPUSCULAR HGB CONC 30 g/dL (31-37); MEAN CORPUSCULAR VOLUME 64 fL (79-100); MONO # 0.6 x10^3/uL (0.0-1.1); MONO % 7 % (0-9); NEUT # 4.7 x10^3uL (1.8-7.7); NEUT % 57 % (31-73); PLATELET COUNT 232 x10^3/uL (140-400); RED CELL DISTRIBUTION WIDTH 24.2 % (11.5-14.5); WHITE BLOOD COUNT 8.2 x10^3/uL (4.0-11.0)
[2019-02-02 06:08] LABS: PROTHROMBIN TIME PATIENT 13.6 SEC (11.7-14.0)
[2019-02-02 06:14] LABS: CALCIUM 8.8 mg/dL (8.5-10.1); CREATININE 1.3 mg/dL (0.7-1.3); GFR 70.4; POTASSIUM 4.3 mmol/L (3.5-5.1)
--- NOTE | 2019-02-02 06:14 | PHYS DOC ---
Past Medical History Past Medical History: Angina, Asthma, CHF, COPD, CVA, High Cholesterol, Hypertension, MT, Renal Disease Additional Past Medical Histor: MURMUR, CATH WITH STENT, ULCER, SLEEP APNEA Past Surgical History: No Surgical History Additional Past Surgical Histo: cardiac cath with stent placement Smoking: Quit Less Than 1 Year Alcohol Use: None Drug Use: None Adult General Chief Complaint Chief Complaint: SHORTNESS OF BREATH HPI HPI Patient is a 53 year old male who presents with shortness of breath. This started this morning. Worse with laying down as well as exertion. Moderate to severe in intensity. He was released from the hospital earlier this week for similar symptoms. He noted feet swelling at that time which his slightly improved during his hospital stay, has gotten no worse since discharge, but has never returned back to his previous baseline. He has a history of CHF, COPD, hypertension, CVA, and renal failure. He reports stopping smoking approximately 2 weeks ago.[] Review of Systems Review of Systems Constitutional: Denies fever or chills [] Eyes: Denies change in visual acuity, redness, or eye pain [] HENT: Denies nasal congestion or sore throat [] Respiratory: Denies cough, see history of present illness[] Cardiovascular: No chest pain or palpitations[] GI: Denies abdominal pain, nausea, vomiting, bloody stools or diarrhea [] : Denies dysuria or hematuria [] Musculoskeletal: Denies back pain or joint pain [] Integument: Denies rash or skin lesions [] Neurologic: Denies headache, focal weakness or sensory changes [] Endocrine: Denies polyuria or polydipsia [] All other systems were reviewed and found to be within normal limits, except as documented in this note. Current Medications Current Medications Current Medications Medications (Trade) Dose Ordered Sig/Deepa Start Time Stop Time Status Last Admin Dose Admin Albuterol/ Ipratropium (Duoneb) 3 ml 1X ONCE 02/02/19 06:15 02/02/19 06:16 DC Aspirin (Children'S Aspirin) 324 mg 1X ONCE 02/02/19 06:30 02/02/19 06:31 Furosemide (Lasix) 40 mg 1X ONCE 02/02/19 06:00 02/02/19 06:01 DC 02/02/19 05:58 40 MG Nitroglycerin (Nitro-Bid Oint) 1 inch 1X ONCE 02/02/19 06:00 02/02/19 06:01 DC 02/02/19 05:58 1 INCH Allergies Allergies Allergies Coded Allergies Type Severity Reaction Last Updated Verified lisinopril Allergy Severe Swelling 08/09/18 Yes Physical Exam Physical Exam Constitutional: Well developed, well nourished, moderate distress with increased work of breathing, non-toxic appearance. [] HENT: Normocephalic, atraumatic, bilateral external ears normal, oropharynx moist, no oral exudates, nose normal. [] Eyes: PERRLA, EOMI, conjunctiva normal, no discharge. [] Neck: Normal range of motion, no tenderness, supple, no stridor. [] Cardiovascular:Heart rate regular rhythm, no murmur [] Lungs & Thorax: Diminished bilateral breath sounds, no Rales, rhonchi, or wheezes noted[] Abdomen: Bowel sounds normal, soft, no tenderness, no masses, no pulsatile masses. [] Skin: Warm, dry, no erythema, no rash. [] Back: No tenderness, no CVA tenderness. [] Extremities: No tenderness, no cyanosis, no clubbing, ROM intact, 1-2+ pretibial edema bilaterally, 2-3+ edema in bilateral feet. [] Neurologic: Alert and oriented X 3, normal motor function, normal sensory function, no focal deficits noted. [] Psychologic: Affect normal, judgement normal, mood normal. [] Current Patient Data Vital Signs Vital Signs Date Time Temp Pulse Resp B/P (MAP) Pulse Ox O2 Delivery O2 Flow Rate FiO2 02/02/19 06:15 99 Nasal Cannula 2.0 02/02/19 05:58 103 179/120 02/02/19 05:45 98.6 24 98.6 Lab Values Laboratory Tests Test 02/02/19 05:50 White Blood Count 8.2 x10^3/uL (4.0-11.0) Red Blood Count 4.30 x10^6/uL (4.30-5.70) Hemoglobin 8.3 g/dL (13.0-17.5) L Hematocrit 27.4 % (39.0-53.0) L Mean Corpuscular Volume 64 fL (79-100) L Mean Corpuscular Hemoglobin 19 pg (25-35) L Mean Corpuscular Hemoglobin Concent 30 g/dL (31-37) L Red Cell Distribution Width 24.2 % (11.5-14.5) H Platelet Count 232 x10^3/uL (140-400) Neutrophils (%) (Auto) 57 % (31-73) Lymphocytes (%) (Auto) 34 % (24-48) Monocytes (%) (Auto) 7 % (0-9) Eosinophils (%) (Auto) 1 % (0-3) Basophils (%) (Auto) 1 % (0-3) Neutrophils # (Auto) 4.7 x10^3uL (1.8-7.7) Lymphocytes # (Auto) 2.7 x10^3/uL (1.0-4.8) Monocytes # (Auto) 0.6 x10^3/uL (0.0-1.1) Eosinophils # (Auto) 0.1 x10^3/uL (0.0-0.7) Basophils # (Auto) 0.1 x10^3/uL (0.0-0.2) Prothrombin Time 13.6 SEC (11.7-14.0) Prothrombin Time INR 1.1 (0.8-1.1) Sodium Level 141 mmol/L (136-145) Potassium Level 4.3 mmol/L (3.5-5.1) Chloride Level 106 mmol/L (98-107) Carbon Dioxide Level 28 mmol/L (21-32) Anion Gap 7 (6-14) Blood Urea Nitrogen 18 mg/dL (8-26) Creatinine 1.3 mg/dL (0.7-1.3) Estimated GFR (Cockcroft-Gault) 70.4 BUN/Creatinine Ratio 14 (6-20) Glucose Level 98 mg/dL (70-99) Calcium Level 8.8 mg/dL (8.5-10.1) Total Bilirubin 0.5 mg/dL (0.2-1.0) Aspartate Amino Transferase (AST) 44 U/L (15-37) H Alanine Aminotransferase (ALT) 72 U/L (16-63) H Alkaline Phosphatase 95 U/L (46-116) Troponin I Quantitative 0.196 ng/mL (0.000-0.055) CR-Gpq-[id number]-Type Natriuretic Peptide 4690 pg/mL (0-124) H Total Protein 6.7 g/dL (6.4-8.2) Albumin 2.9 g/dL (3.4-5.0) L Albumin/Globulin Ratio 0.8 (1.0-1.7) L Laboratory Tests 02/02/19 05:50 Laboratory Tests 02/02/19 05:50 EKG EKG EKG shows a sinus rhythm at 95 bpm, left axis deviation at -86, normal QTC, no ST elevations, no significant changes when compared with EKG of 01/25/2019. [] Radiology/Procedures Radiology/Procedures Portable chest x-ray obtained shows what appears to be cardiomegaly, fluid in the fissure on the right, no effusion is noted, increased markings consistent with interstitial edema[] Course & Med Decision Making Course & Med Decision Making Pertinent Labs and Imaging studies reviewed. (See chart for details) ED course and medical decision making: Patient arrived, was placed in bed, in tolerated exam well. He was placed on his usual 2 L nasal cannula oxygen. He was given nitroglycerin as well as IV furosemide consistent with his usual daily dose. After the return of the elevated troponin he was given aspirin as well. Review of his old records shows that his renal function is improved today compared to when he was discharged several days ago, however his troponin is trending upwards. Given his increased work of breathing, concerned about cardiac event especially in light of his reduced ejection fraction. Consultation was made with the hospitalist service for admission. Findings were discussed with the patient who voiced understanding, all questions were answered. He was admitted in improved condition.[] Dragon Disclaimer Dragon Disclaimer This electronic medical record was generated, in whole or in part, using a voice recognition dictation system. Departure Departure Impression: Primary Impression: CHF exacerbation Additional Impressions: Elevated troponin I level Chronic renal insufficiency COPD with acute exacerbation Disposition: ADMITTED INPATIENT Admitting Physician: Andreas Hernandez Condition: IMPROVED Referrals: NO PCP (PCP) Problem Qualifiers Primary Impression: CHF exacerbation Heart failure type: unspecified Qualified Codes: I50.9 - Heart failure, unspecified Additional Impressions: Chronic renal insufficiency Chronic kidney disease stage: unspecified stage Qualified Codes: N18.9 - Chronic kidney disease, unspecified JOSE WHITE DO Feb 02, 2019 06:14
[2019-02-02] MEDS ORDERED: IPRATRPIUM/ALBUTEROL 0.5/2.5MG 3 ML NEBU. NEB ONE (06:15)
[2019-02-02 06:19] LABS: ALBUMIN 2.9 g/dL (3.4-5.0); ALBUMIN/GLOBULIN RATIO 0.8 (1.0-1.7); TOTAL BILIRUBIN 0.5 mg/dL (0.2-1.0); TOTAL PROTEIN 6.7 g/dL (6.4-8.2)
[2019-02-02] MEDS ORDERED: ASPIRIN CHEWABLE 81 MG TABLET. PO ONE (06:30)
[2019-02-02 06:49] LABS: BARBITURATES NEG (NEG); BENZODIAZEPINES NEG (NEG); CANNABINOIDS NEG (NEG); COCAINE NEG (NEG); METHADONE NEG (NEG); OPIATES NEG (NEG); PHENCYCLIDINE NEG (NEG)
[2019-02-02 06:50] LABS: AMPHETAMINE/METHAMPHETAMINE NEG (NEG)
[2019-02-02] MEDS ORDERED: NITROGLYCERIN SUBLINGUAL 0.4 MG BOTTLE OF 25. SL PRN (07:00)
[2019-02-02] MEDS ORDERED: MORPHINE SULFATE 4 MG/ML VIAL. IV PRN (07:00)
[2019-02-02] MEDS ORDERED: ONDANSETRON PF 4 MG/2 ML VIAL. IV PRN (07:00)
[2019-02-02] MEDS ORDERED: ACETAMINOPHEN 325 MG TABLET. PO PRN (07:00)
[2019-02-02 07:30] VITALS: BP 142/86
--- NOTE | 2019-02-02 07:41 | RAD ---
PORTABLE CHEST 1V History: Shortness of breath Comparison: January 24, 2019 Findings: AP view of the chest is submitted. Pericardial cardiac silhouette is again enlarged. There is again tortuous thoracic aorta. There is no pneumothorax or pleural fluid. There is increased interstitial opacity most notable at the right lung base. Impression: 1. There is increased interstitial opacity most notable at the right lung base which may be due to interstitial edema such as related to left ventricular failure given the enlarged pericardial cardiac silhouette. Electronically signed by: Davey Sow MD (02/02/2019 7:38 AM) [facility]
[2019-02-02] MEDS: IPRATRPIUM/ALBUTEROL 0.5/2.5MG 3 ML NEBU. NEB SCH ×4 (08:34→18:57)
[2019-02-02 08:57] LABS: % BASOS 1 % (0-3); % EOS 1 % (0-5); % MONOS 9 % (0-10)
[2019-02-02 08:59] LABS: % SEGS 60 % (35-66); PLT ESTIMATE ADEQUATE (ADEQUATE)
[2019-02-02 09:00] LABS: ANISOCYTOSIS PRESENT; HYPOCHROMIA MARKED; MICROCYTOSIS MARKED; POIKILOCYTOSIS PRESENT; POLYCHROMASIA PRESENT; TARGET CELLS PRESENT
[2019-02-02 09:01] LABS: % ATYL 2 % (0-0); % LYMPHS 27 % (24-48); OVALOCYTES PRESENT; SCHISTOCYTES OCC; TEAR DROP CELLS OCC
[2019-02-02] MEDS ORDERED: ATORVASTATIN CALCIUM 20 MG TABLET PO SCH (10:00)
[2019-02-02] MEDS ORDERED: NON FORMULARY ITEM (Methylprednisolone (Medrol) 1 PKG) PO SCH (10:00)
--- NOTE | 2019-02-02 10:10 | EKG ---
[facility] [address] [place] [address] Test Date: 2019-02-02 Test Time: 05:51:24 Pat Name: KIRBY GARCIA Department: Room: 256 1 Gender: M Return Agent: : [id number] Requested By: FABIAN GARCIA Order Number: [id number] Reading MD: Sergio Caro MD Measurements Intervals [place] Rate: 94 P: 61 WA: 138 QRS: -86 QRSD: 94 T: 86 QT: 350 QTc: 443 Interpretive Statements SINUS RHYTHM NON-SPECIFIC ST/T CHANGES cannot rule out septal infarct low limb lead voltage Electronically Signed On 02-04-2019 10:14:55 CDT by Sergio Caro MD
--- NOTE | 2019-02-02 10:16 | HP ---
ADMIT DATE: 02/02/2019 CHIEF COMPLAINT: Shortness of breath. HISTORY OF PRESENT ILLNESS: The patient is a pleasant 53-year-old male, well known to our service. We just discharged him a few days ago. He tends to be cocaine positive at times. At this time, he came in with shortness of breath. Chest x-ray was showing some vascular congestion. His BNP level is a little high at 4690. He also did not take his meds that we prescribed after discharge. His troponin is also high at 0.196. Describes his symptoms as worsening, better with sitting still. He tried increasing some [id number] meds that did not work. I discussed the case with the ER physician. We are admitting the patient and consulting Cardiology. I just talked to Cardiology as well. PAST MEDICAL HISTORY: Noncompliance, cocaine abuse, angina, CHF, asthma, COPD, stroke, hyperlipidemia, hypertension, chronic renal insufficiency, cardiac murmur, cardiac stent, peptic ulcer, obstructive sleep apnea. ALLERGIES: LISINOPRIL. FAMILY HISTORY: Coronary artery disease. SOCIAL HISTORY: We think he still does cocaine, we are not sure; used to smoke, he is trying to quit. Drinks socially. MEDICATIONS: Reviewed. He is on Ventolin, Plavix, Lipitor, hydralazine, isosorbide, carvedilol, amlodipine, hydrocodone, Lasix, fluticasone, Medrol Dosepak and Protonix, but he apparently did not take his meds from what I understand. REVIEW OF SYSTEMS: GENERAL: No history of weight change, weakness or fevers. SKIN: No bruising, hair changes or rashes. EYES: No blurred, double or loss of vision. NOSE AND THROAT: No history of nosebleeds, hoarseness or sore throat. HEART: No history of palpitations, chest pain or shortness of breath on exertion. LUNGS: He complains of shortness of breath. GASTROINTESTINAL: Denies changes in appetite, nausea, vomiting, diarrhea or constipation. GENITOURINARY: No history of frequency, urgency, hesitancy or nocturia. NEUROLOGIC: Denies history of numbness, tingling, tremor or weakness. PSYCHIATRIC: No history of panic, anxiety or depression. ENDOCRINE: No history of heat or cold intolerance, polyuria or polydipsia. EXTREMITIES: Denies muscle weakness, joint pain, pain on walking or stiffness. PHYSICAL EXAMINATION: VITAL SIGNS: Temperature afebrile; pulse 108; respirations 22; blood pressure was as high as 185/108, it is now down to 154/90; O2 sat 98% on 2 liters. GENERAL: He is alert, cooperative. HEART: Distant S1, S2 with a soft S3. LUNGS: Bibasilar crackles. ABDOMEN: Soft. Decreased bowel sounds. EXTREMITIES: 1+ edema. SKIN: No rashes. PSYCHIATRIC: He is stable. VASCULAR: Good capillary refill. ENDOCRINE: No thyromegaly. LYMPHATICS: No cervical nodes. HEMATOPOIETIC: No bruising. LABORATORY DATA: Electrolytes are normal. AST and ALT are high at 44 and 72. BNP 4690. Troponin 0.196. Chest x-ray shows vascular congestion. ASSESSMENT AND PLAN: Acute flare of cypat-[id number] systolic and diastolic heart failure secondary to noncompliance. The patient has been admitted. We are rechecking his urine drug screen to see if he has been doing any more cocaine. IV Lasix, serial enzymes, serial EKGs, echocardiogram, consult Dr. Tapia, home meds. DVT prophylaxis, PT, OT. Full code. PROGNOSIS: Guarded. I told him to quit doing drugs. KARLY MITCHELL DO DR: LORRIE/kathryn JOB#: [id number] / [id number]
[2019-02-02] MEDS: ISOSORBIDE MONONITRATE ER 30 MG TAB.ER.24H PO SCH (10:51)
[2019-02-02] MEDS: CLOPIDOGREL BISULFATE 75 MG TABLET PO SCH (10:51)
[2019-02-02 11:00] VITALS: BP 156/89
[2019-02-02] MEDS ORDERED: CARVEDILOL 12.5 MG TABLET. PO ONE (11:00)
[2019-02-02] MEDS ORDERED: POTASSIUM CHLORIDE 20 MEQ TABLET.ER. PO ONE (11:45)
[2019-02-02] MEDS ORDERED: NON FORMULARY ITEM (Albuterol Sulfate (Ventolin Hfa Inhaler) 2 PUFF) INH SCH (12:00)
--- NOTE | 2019-02-02 12:13 | PDOC2 ---
CONSULT Date of Consult Date of Consult DATE: 02/02/19 TIME: 12:07 Reason for Consult Reason for Consult: Heart failure Referring Physician Referring Physician: Dr. Hernandez Identification/Chief Complaint Chief Complaint Shortness of breath Source Source: Chart review, Patient History of Present Illness Reason for Visit: The patient is a 53-year-old male who presented to the emergency room with one to 2 days of increasing shortness of breath. Patient's chest x-ray showed heart failure and he has been admitted for treatment. Patient was just discharged 5 days ago for an admission for heart failure. Most recent workup has included an MPI test on 01/15/19 that showed a fixed lateral wall defect with some estephanie- infarct ischemia and an ejection fraction of 31%. Echocardiogram on 12/21/18 showed an ejection fraction of 35% and moderate mitral regurgitation. He has had multiple admissions at different hospitals over the last 6-7 months. He received stents at and was apparently undergoing a workup for possible amyloidosis which he has not followed up for. He is also had a history of noncompliance as well as cocaine use. Drug screen on this admission is negative. Drug screen on the admission from 01/25/19 was positive for cocaine. He is feeling better this morning with less shortness of breath. Past Medical History Cardiovascular: CAD, CHF, HTN, Hyperlipidemia, Other Pulmonary: Asthma, COPD CENTRAL NERVOUS SYSTEM: Other GI: No pertinent hx Heme/Onc: No pertinent hx Hepatobiliary: No pertinent hx Psych: No pertinent hx Musculoskeletal: Osteoarthritis Rheumatologic: No pertinent hx Infectious disease: No pertinent hx Renal/: Chronic renal insuff Endocrine: No pertinent hx Past Surgical History Past Surgical History: Tonsillectomy, Other (coronary stents.) Family History Family History: Hypertension Social History <1 pack per day ALCOHOL: none Drugs: None, Cocaine, Other Lives: with Family Current Problem List Problem List Problems Medical Problems: (1) CHF exacerbation Status: Acute (2) Elevated troponin I level Status: Acute Current Medications Current Medications Current Medications Nitroglycerin (Nitro-Bid Oint) 1 inch 1X ONCE TP Last administered on at 05:58; Start 02/02/19 at 06:00; Stop 02/02/19 at 06:01; Status DC Furosemide (Lasix) 40 mg 1X ONCE IVP Last administered on 02/02/19at 05:58; Start 02/02/19 at 06:00; Stop 02/02/19 at 06:01; Status DC Albuterol/ Ipratropium (Duoneb) 3 ml 1X ONCE NEB ; Start 02/02/19 at 06:15; Stop 02/02/19 at 06:16; Status DC Aspirin (Children'S Aspirin) 324 mg 1X ONCE PO Last administered on 02/02/19at 06:34; Start 02/02/19 at 06:30; Stop 02/02/19 at 06:31; Status DC Ondansetron HCl (Zofran) 4 mg PRN Q8HRS PRN IV NAUSEA/VOMITING Last administered on 02/02/19at 07:02; Start 02/02/19 at 07:00; Stop 02/03/19 at 06:59 Morphine Sulfate (Morphine Sulfate) 2 mg PRN Q2HR PRN IV PAIN Last administered on 02/02/19at 07:04; Start 02/02/19 at 07:00; Stop 02/03/19 at 06:59 Acetaminophen (Tylenol) 650 mg PRN Q4HRS PRN PO FEVER Last administered on 02/02at 09:40; Start 02/02/19 at 07:00; Stop 02/03/19 at 06:59 Nitroglycerin (Nitrostat) 0.4 mg PRN Q5MIN PRN SL CHEST PAIN; Start 02/02/19 at 07:00; Stop 02/03/19 at 06:59 Albuterol/ Ipratropium (Duoneb) 3 ml RTQID NEB Last administered on 02/02/19at 08:34; Start 02/02/19 at 08:00; Stop 02/03/19 at 07:59 Amlodipine Besylate (Norvasc) 10 mg BID PO ; Start 02/02/19 at 21:00 Atorvastatin Calcium (Lipitor) 20 mg DAILY PO ; Start 02/02/19 at 10:00; Stop at 10:47; Status DC Carvedilol (Coreg) 25 mg BIDWMEALS PO ; Start 02/02/19 at 17:00 Clopidogrel Bisulfate (Plavix) 75 mg DAILY PO Last administered on 02/02/19at 10 :51; Start 02/02/19 at 10:00 Fluticasone Propionate (Flonase) 2 spray DAILY NS ; Start 02/03/19 at 09:00 Furosemide (Lasix) 40 mg DAILY PO ; Start 02/03/19 at 09:00; Stop 02/03/19 at 09 :00; Status DC Acetaminophen/ Hydrocodone Bitart (Lortab 5/325) 1 tab PRN Q6HRS PRN PO PAIN; Start 02/02/19 at 10:00 Isosorbide Mononitrate (Imdur) 60 mg DAILY PO Last administered on 02/02/19at 10 :51; Start 02/02/19 at 10:00 Non-Formulary Medication (Albuterol Sulfate (Ventolin Hfa Inhaler)) 2 puff Q4HRS INH ; Start 02/02/19 at 12:00; Status UNV Hydralazine HCl (Apresoline) 100 mg TID PO ; Start 02/02/19 at 14:00 Non-Formulary Medication (Methylprednisolone (Medrol)) 1 pkg UD PO ; Start 02/02 at 10:00; Status UNV Pantoprazole Sodium (Protonix) 40 mg BIDAC PO ; Start 02/02/19 at 16:30 Atorvastatin Calcium (Lipitor) 20 mg QHS PO ; Start 02/02/19 at 21:00 Carvedilol (Coreg) 25 mg 1X ONCE PO Last administered on 02/02/19at 11:06; Start 02/02/19 at 11:00; Stop 02/02/19 at 11:01; Status DC Furosemide (Lasix) 40 mg DAILY IVP ; Start 02/02/19 at 11:45 Potassium Chloride (Klor-Con) 40 meq 1X ONCE PO ; Start 02/02/19 at 11:45; Stop 02/02/19 at 11:48; Status DC Active Scripts Active Medrol (Methylprednisolone) 4 Mg Tab.ds.pk 1 Pkg PO UD Hydrocodone-Acetamin 5-325 mg (Hydrocodone/Acetaminophen) 1 Each Tablet 1 Each PO PRN Q6HRS PRN 6 Days [Pantoprazole] 40 MG Tablet.dr 40 Mg PO BIDAC Ventolin Hfa Inhaler (Albuterol Sulfate) 18 Gm Hfa.aer.ad 2 Puff INH Q4HRS 20 Days Furosemide 40 Mg Tablet 40 Mg PO DAILY 30 Days Carvedilol (Carvedilol) 12.5 Mg Tablet 25 Mg PO BIDWMEALS 30 Days Isosorbide Mononitrate Er (Isosorbide Mononitrate) 30 Mg Tab.er.24h 60 Mg PO DAILY 30 Days Hydralazine Hcl 50 Mg Tablet 100 Mg PO TID 30 Days Lipitor (Atorvastatin Calcium) 20 Mg Tablet 1 Tab PO DAILY Fluticasone Propionate Nasal [place] (Fluticasone Propionate) 1 [place] 2 [place] NS DAILY Reported Clopidogrel (Clopidogrel Bisulfate) 75 Mg Tablet 1 Tab PO DAILY Amlodipine Besylate 10 Mg Tablet 10 Mg PO BID Allergies Allergies: Coded Allergies: lisinopril (Verified Allergy, Severe, Swelling, 08/09/18) caused throat swelling ROS General: YES: Fatigue Respiratory: YES: Shortness of breath, SOB with excertion Physical Exam General: mild distress HEENT: Atraumatic Lungs: Other (decreased breath sounds) Heart: Regular rate Abdomen: Normal bowel sounds Vitals VITALS Vital Signs Date Time Temp Pulse Resp B/P (MAP) Pulse Ox O2 Delivery O2 Flow Rate FiO2 02/02/19 11:06 92 154/90 02/02/19 08:38 96 Nasal Cannula 2.0 02/02/19 07:30 22 02/02/19 05:45 98.6 98.6 Labs Labs Laboratory Tests Test 02/02/19 05:50 02/02/19 06:35 02/02/19 09:50 White Blood Count 8.2 x10^3/uL (4.0-11.0) Red Blood Count 4.30 x10^6/uL (4.30-5.70) Hemoglobin 8.3 g/dL (13.0-17.5) Hematocrit 27.4 % (39.0-53.0) Mean Corpuscular Volume 64 fL (79-100) Mean Corpuscular Hemoglobin 19 pg (25-35) Mean Corpuscular Hemoglobin Concent 30 g/dL (31-37) Red Cell Distribution Width 24.2 % (11.5-14.5) Platelet Count 232 x10^3/uL (140-400) Neutrophils (%) (Auto) 57 % (31-73) Lymphocytes (%) (Auto) 34 % (24-48) Monocytes (%) (Auto) 7 % (0-9) Eosinophils (%) (Auto) 1 % (0-3) Basophils (%) (Auto) 1 % (0-3) Neutrophils # (Auto) 4.7 x10^3uL (1.8-7.7) Lymphocytes # (Auto) 2.7 x10^3/uL (1.0-4.8) Monocytes # (Auto) 0.6 x10^3/uL (0.0-1.1) Eosinophils # (Auto) 0.1 x10^3/uL (0.0-0.7) Basophils # (Auto) 0.1 x10^3/uL (0.0-0.2) Segmented Neutrophils % 60 % (35-66) Lymphocytes % 27 % (24-48) Atypical Lymphocytes % (Manual) 2 % (0-0) Monocytes % 9 % (0-10) Eosinophils % 1 % (0-5) Basophils % 1 % (0-3) Platelet Estimate Adequate (ADEQUATE) Polychromasia Present Hypochromasia Marked Poikilocytosis Present Anisocytosis Present Microcytosis Marked Target Cells Present Tear Drop Cells Occ Ovalocytes Present Schistocytes Occ Prothrombin Time 13.6 SEC (11.7-14.0) Prothromb Time International Ratio 1.1 (0.8-1.1) Sodium Level 141 mmol/L (136-145) Potassium Level 4.3 mmol/L (3.5-5.1) Chloride Level 106 mmol/L (98-107) Carbon Dioxide Level 28 mmol/L (21-32) Anion Gap 7 (6-14) Blood Urea Nitrogen 18 mg/dL (8-26) Creatinine 1.3 mg/dL (0.7-1.3) Estimated GFR (Cockcroft-Gault) 70.4 BUN/Creatinine Ratio 14 (6-20) Glucose Level 98 mg/dL (70-99) Calcium Level 8.8 mg/dL (8.5-10.1) Total Bilirubin 0.5 mg/dL (0.2-1.0) Aspartate Amino Transf (AST/SGOT) 44 U/L (15-37) Alanine Aminotransferase (ALT/SGPT) 72 U/L (16-63) Alkaline Phosphatase 95 U/L (46-116) Troponin I Quantitative 0.196 ng/mL (0.000-0.055) 0.182 ng/mL (0.000-0.055) QQ-Pss-E-Type Natriuretic Peptide 4690 pg/mL (0-124) Total Protein 6.7 g/dL (6.4-8.2) Albumin 2.9 g/dL (3.4-5.0) Albumin/Globulin Ratio 0.8 (1.0-1.7) Urine Opiates Screen Neg (NEG) Urine Methadone Screen Neg (NEG) Urine Barbiturates Neg (NEG) Urine Phencyclidine Screen Neg (NEG) Urine Amphetamine/Methamphetamine Neg (NEG) Urine Benzodiazepines Screen Neg (NEG) Urine Cocaine Screen Neg (NEG) Urine Cannabinoids Screen Neg (NEG) Urine Ethyl Alcohol Neg (NEG) Laboratory Tests Test 02/02/19 05:50 02/02/19 06:35 02/02/19 09:50 White Blood Count 8.2 x10^3/uL (4.0-11.0) Red Blood Count 4.30 x10^6/uL (4.30-5.70) Hemoglobin 8.3 g/dL (13.0-17.5) Hematocrit 27.4 % (39.0-53.0) Mean Corpuscular Volume 64 fL (79-100) Mean Corpuscular Hemoglobin 19 pg (25-35) Mean Corpuscular Hemoglobin Concent 30 g/dL (31-37) Red Cell Distribution Width 24.2 % (11.5-14.5) Platelet Count 232 x10^3/uL (140-400) Neutrophils (%) (Auto) 57 % (31-73) Lymphocytes (%) (Auto) 34 % (24-48) Monocytes (%) (Auto) 7 % (0-9) Eosinophils (%) (Auto) 1 % (0-3) Basophils (%) (Auto) 1 % (0-3) Neutrophils # (Auto) 4.7 x10^3uL (1.8-7.7) Lymphocytes # (Auto) 2.7 x10^3/uL (1.0-4.8) Monocytes # (Auto) 0.6 x10^3/uL (0.0-1.1) Eosinophils # (Auto) 0.1 x10^3/uL (0.0-0.7) Basophils # (Auto) 0.1 x10^3/uL (0.0-0.2) Segmented Neutrophils % 60 % (35-66) Lymphocytes % 27 % (24-48) Atypical Lymphocytes % (Manual) 2 % (0-0) Monocytes % 9 % (0-10) Eosinophils % 1 % (0-5) Basophils % 1 % (0-3) Platelet Estimate Adequate (ADEQUATE) Polychromasia Present Hypochromasia Marked Poikilocytosis Present Anisocytosis Present Microcytosis Marked Target Cells Present Tear Drop Cells Occ Ovalocytes Present Schistocytes Occ Prothrombin Time 13.6 SEC (11.7-14.0) Prothromb Time International Ratio 1.1 (0.8-1.1) Sodium Level 141 mmol/L (136-145) Potassium Level 4.3 mmol/L (3.5-5.1) Chloride Level 106 mmol/L (98-107) Carbon Dioxide Level 28 mmol/L (21-32) Anion Gap 7 (6-14) Blood Urea Nitrogen 18 mg/dL (8-26) Creatinine 1.3 mg/dL (0.7-1.3) Estimated GFR (Cockcroft-Gault) 70.4 BUN/Creatinine Ratio 14 (6-20) Glucose Level 98 mg/dL (70-99) Calcium Level 8.8 mg/dL (8.5-10.1) Total Bilirubin 0.5 mg/dL (0.2-1.0) Aspartate Amino Transf (AST/SGOT) 44 U/L (15-37) Alanine Aminotransferase (ALT/SGPT) 72 U/L (16-63) Alkaline Phosphatase 95 U/L (46-116) Troponin I Quantitative 0.196 ng/mL (0.000-0.055) 0.182 ng/mL (0.000-0.055) AN-Alt-A-Type Natriuretic Peptide 4690 pg/mL (0-124) Total Protein 6.7 g/dL (6.4-8.2) Albumin 2.9 g/dL (3.4-5.0) Albumin/Globulin Ratio 0.8 (1.0-1.7) Urine Opiates Screen Neg (NEG) Urine Methadone Screen Neg (NEG) Urine Barbiturates Neg (NEG) Urine Phencyclidine Screen Neg (NEG) Urine Amphetamine/Methamphetamine Neg (NEG) Urine Benzodiazepines Screen Neg (NEG) Urine Cocaine Screen Neg (NEG) Urine Cannabinoids Screen Neg (NEG) Urine Ethyl Alcohol Neg (NEG) Images Images Chest x-ray with heart failure. Assessment/Plan Assessment/Plan 1. Acute on chronic systolic heart failure. Previous workup as above. Patient is improved on diuresis. He is not taking his medication for at least one day and possibly longer. He was discharged 5 days ago. We'll continue with diuresis and monitoring of lab. We'll attempt to arrange close outpatient monitoring once discharged. 2. Coronary artery disease. History of stenting at . Continue medical treatment. 3. Hypertension. Continue present medications. 4. Hyperlipidemia. Statin medication. 5. COPD. Patient has discontinued smoking. 6. Noncompliance. 7. History of cocaine use. Drug screen on this admission is negative. Drug screen earlier this month was positive. Thank you for allowing us to participate in the care of your patient. PHILIP DUNAWAY MD Feb 02, 2019 12:13
[2019-02-02] MEDS: HYDROcodone/APAP 5/325MG 1 TAB TABLET PO PRN ×2 (12:44→20:20)
[2019-02-02] MEDS: FUROSEMIDE 40 MG/4 ML VIAL. IVP SCH (12:45)
[2019-02-02 15:00] VITALS: BP 120/59
[2019-02-02] MEDS: CARVEDILOL 12.5 MG TABLET. PO SCH (18:22)
[2019-02-02] MEDS: PANTOPRAZOLE 40 MG TABLET.DR. PO SCH (18:22)
[2019-02-02 19:02] VITALS: BP 143/87
[2019-02-02] MEDS: ATORVASTATIN CALCIUM 20 MG TABLET PO SCH (20:17)
[2019-02-02] MEDS: amLODIPine BESYLATE 10 MG TABLET PO SCH (20:18)
[2019-02-02 22:18] VITALS: BP 130/91
[2019-02-03 03:07] VITALS: BP 124/80
[2019-02-03] MEDS: HYDROcodone/APAP 5/325MG 1 TAB TABLET PO PRN ×3 (04:52→21:51)
[2019-02-03 05:16] LABS: BASO % 1 % (0-3); EOS # 0.1 x10^3/uL (0.0-0.7); EOS % 2 % (0-3); HEMATOCRIT 25.7 % (39.0-53.0); HEMOGLOBIN 7.7 g/dL (13.0-17.5); LYMPH # 2.4 x10^3/uL (1.0-4.8); LYMPH % 43 % (24-48); MEAN CORPUSCULAR HEMOGLOBIN 19 pg (25-35); MEAN CORPUSCULAR HGB CONC 30 g/dL (31-37); MEAN CORPUSCULAR VOLUME 64 fL (79-100); MONO # 0.6 x10^3/uL (0.0-1.1); MONO % 10 % (0-9); NEUT # 2.6 x10^3uL (1.8-7.7); NEUT % 45 % (31-73); PLATELET COUNT 196 x10^3/uL (140-400); RED BLOOD COUNT 4.01 x10^6/uL (4.30-5.70); RED CELL DISTRIBUTION WIDTH 24.1 % (11.5-14.5); WHITE BLOOD COUNT 5.7 x10^3/uL (4.0-11.0)
[2019-02-03 05:39] LABS: ALBUMIN 2.5 g/dL (3.4-5.0); ALBUMIN/GLOBULIN RATIO 0.7 (1.0-1.7); CALCIUM 8.6 mg/dL (8.5-10.1); CREATININE 1.7 mg/dL (0.7-1.3); GFR 51.7; POTASSIUM 4.4 mmol/L (3.5-5.1); TOTAL BILIRUBIN 0.3 mg/dL (0.2-1.0); TOTAL PROTEIN 5.9 g/dL (6.4-8.2)
[2019-02-03 07:00] VITALS: BP 152/103
[2019-02-03] MEDS: PANTOPRAZOLE 40 MG TABLET.DR. PO SCH ×2 (08:39→17:03)
[2019-02-03] MEDS: FUROSEMIDE 40 MG/4 ML VIAL. IVP SCH (08:39)
[2019-02-03] MEDS: CARVEDILOL 12.5 MG TABLET. PO SCH ×2 (08:40→17:03)
[2019-02-03] MEDS: ISOSORBIDE MONONITRATE ER 30 MG TAB.ER.24H PO SCH (08:40)
[2019-02-03] MEDS: CLOPIDOGREL BISULFATE 75 MG TABLET PO SCH (08:40)
[2019-02-03] MEDS: amLODIPine BESYLATE 10 MG TABLET PO SCH ×2 (08:41→21:51)
[2019-02-03] MEDS: FLUTICASONE 50MCG/NASAL SPRAY 16GM BOTTLE. NS SCH (08:46)
[2019-02-03] MEDS ORDERED: FUROSEMIDE 40 MG TABLET. PO SCH (09:00)
[2019-02-03 11:00] VITALS: BP 114/61
--- NOTE | 2019-02-03 11:02 | PDOC ---
PROGRESS NOTES Chief Complaint Chief Complaint Acute on chronic systolic heart failure likely 2/2 noncompliance, EF 31% on 2018 Chronic Renal Insufficiency (Cr 1.7 on 02/03) Coronary artery disease. History of stenting at Hypertension Hyperlipidemia COPD. Patient has discontinued smoking. History of cocaine use. Drug screen on this admission is negative. Drug screen earlier this month was positive History of Present Illness History of Present Illness Mr. Blanton is a 53 yo male presented with shortness of breath, found to have acute on chronic heart failure, MPI showed EF of 31%. Patient started on lasix, duoNebs. Cards following. UDS negative this admission, prior cocaine use. Patient seen and examined, resting with NAD. Cr elevated at 1.7, patient has history of chronic renal insufficiency. Vitals Vitals Vital Signs Date Time Temp Pulse Resp B/P (MAP) Pulse Ox O2 Delivery O2 Flow Rate FiO2 02/03/19 08:41 80 152/103 02/03/19 08:00 Nasal Cannula 2.0 02/03/19 07:00 98.0 18 100 98.0 Physical Exam General: Alert, Cooperative, mild distress Heart: Regular rate, No murmurs Lungs: Clear Abdomen: Normal bowel sounds Extremities: No clubbing, No cyanosis, No edema Skin: No rashes, No significant lesion Labs LABS Laboratory Tests Test 02/02/19 13:30 02/03/19 04:40 Troponin I Quantitative 0.172 ng/mL (0.000-0.055) White Blood Count 5.7 x10^3/uL (4.0-11.0) Red Blood Count 4.01 x10^6/uL (4.30-5.70) Hemoglobin 7.7 g/dL (13.0-17.5) Hematocrit 25.7 % (39.0-53.0) Mean Corpuscular Volume 64 fL (79-100) Mean Corpuscular Hemoglobin 19 pg (25-35) Mean Corpuscular Hemoglobin Concent 30 g/dL (31-37) Red Cell Distribution Width 24.1 % (11.5-14.5) Platelet Count 196 x10^3/uL (140-400) Neutrophils (%) (Auto) 45 % (31-73) Lymphocytes (%) (Auto) 43 % (24-48) Monocytes (%) (Auto) 10 % (0-9) Eosinophils (%) (Auto) 2 % (0-3) Basophils (%) (Auto) 1 % (0-3) Neutrophils # (Auto) 2.6 x10^3uL (1.8-7.7) Lymphocytes # (Auto) 2.4 x10^3/uL (1.0-4.8) Monocytes # (Auto) 0.6 x10^3/uL (0.0-1.1) Eosinophils # (Auto) 0.1 x10^3/uL (0.0-0.7) Basophils # (Auto) 0.0 x10^3/uL (0.0-0.2) Sodium Level 142 mmol/L (136-145) Potassium Level 4.4 mmol/L (3.5-5.1) Chloride Level 107 mmol/L (98-107) Carbon Dioxide Level 26 mmol/L (21-32) Anion Gap 9 (6-14) Blood Urea Nitrogen 27 mg/dL (8-26) Creatinine 1.7 mg/dL (0.7-1.3) Estimated GFR (Cockcroft-Gault) 51.7 BUN/Creatinine Ratio 16 (6-20) Glucose Level 101 mg/dL (70-99) Calcium Level 8.6 mg/dL (8.5-10.1) Magnesium Level 2.1 mg/dL (1.8-2.4) Total Bilirubin 0.3 mg/dL (0.2-1.0) Aspartate Amino Transf (AST/SGOT) 47 U/L (15-37) Alanine Aminotransferase (ALT/SGPT) 65 U/L (16-63) Alkaline Phosphatase 88 U/L (46-116) Total Protein 5.9 g/dL (6.4-8.2) Albumin 2.5 g/dL (3.4-5.0) Albumin/Globulin Ratio 0.7 (1.0-1.7) Review of Systems Review of Systems Denies chest pain Denies shortness of breath Assessment and Plan Assessmemt and Plan Problems Medical Problems: (1) CHF exacerbation Status: Acute (2) Elevated troponin I level Status: Acute Assessment: Acute on chronic systolic heart failure likely 2/2 noncompliance, EF 31% on 2018 Chronic Renal Insufficiency (Cr 1.7 on 02/03) Coronary artery disease. History of stenting at Hypertension Hyperlipidemia COPD. Patient has discontinued smoking. History of cocaine use. Drug screen on this admission is negative. Drug screen earlier this month was positive Plan: Continue rena Tapia input Monitor vitals Review labs in the am PT/OT Continue duoNebs Monitor Cr Comment Review of Relevant I have reviewed the following items coleman (where applicable) has been applied. Labs Laboratory Tests Test 02/02/19 05:50 02/02/19 06:35 02/02/19 09:50 02/02/19 13:30 White Blood Count 8.2 x10^3/uL (4.0-11.0) Red Blood Count 4.30 x10^6/uL (4.30-5.70) Hemoglobin 8.3 g/dL (13.0-17.5) Hematocrit 27.4 % (39.0-53.0) Mean Corpuscular Volume 64 fL (79-100) Mean Corpuscular Hemoglobin 19 pg (25-35) Mean Corpuscular Hemoglobin Concent 30 g/dL (31-37) Red Cell Distribution Width 24.2 % (11.5-14.5) Platelet Count 232 x10^3/uL (140-400) Neutrophils (%) (Auto) 57 % (31-73) Lymphocytes (%) (Auto) 34 % (24-48) Monocytes (%) (Auto) 7 % (0-9) Eosinophils (%) (Auto) 1 % (0-3) Basophils (%) (Auto) 1 % (0-3) Neutrophils # (Auto) 4.7 x10^3uL (1.8-7.7) Lymphocytes # (Auto) 2.7 x10^3/uL (1.0-4.8) Monocytes # (Auto) 0.6 x10^3/uL (0.0-1.1) Eosinophils # (Auto) 0.1 x10^3/uL (0.0-0.7) Basophils # (Auto) 0.1 x10^3/uL (0.0-0.2) Segmented Neutrophils % 60 % (35-66) Lymphocytes % 27 % (24-48) Atypical Lymphocytes % (Manual) 2 % (0-0) Monocytes % 9 % (0-10) Eosinophils % 1 % (0-5) Basophils % 1 % (0-3) Platelet Estimate Adequate (ADEQUATE) Polychromasia Present Hypochromasia Marked Poikilocytosis Present Anisocytosis Present Microcytosis Marked Target Cells Present Tear Drop Cells Occ Ovalocytes Present Schistocytes Occ Prothrombin Time 13.6 SEC (11.7-14.0) Prothromb Time International Ratio 1.1 (0.8-1.1) Sodium Level 141 mmol/L (136-145) Potassium Level 4.3 mmol/L (3.5-5.1) Chloride Level 106 mmol/L (98-107) Carbon Dioxide Level 28 mmol/L (21-32) Anion Gap 7 (6-14) Blood Urea Nitrogen 18 mg/dL (8-26) Creatinine 1.3 mg/dL (0.7-1.3) Estimated GFR (Cockcroft-Gault) 70.4 BUN/Creatinine Ratio 14 (6-20) Glucose Level 98 mg/dL (70-99) Calcium Level 8.8 mg/dL (8.5-10.1) Total Bilirubin 0.5 mg/dL (0.2-1.0) Aspartate Amino Transf (AST/SGOT) 44 U/L (15-37) Alanine Aminotransferase (ALT/SGPT) 72 U/L (16-63) Alkaline Phosphatase 95 U/L (46-116) Troponin I Quantitative 0.196 ng/mL (0.000-0.055) 0.182 ng/mL (0.000-0.055) 0.172 ng/mL (0.000-0.055) WW-Hed-N-Type Natriuretic Peptide 4690 pg/mL (0-124) Total Protein 6.7 g/dL (6.4-8.2) Albumin 2.9 g/dL (3.4-5.0) Albumin/Globulin Ratio 0.8 (1.0-1.7) Urine Opiates Screen Neg (NEG) Urine Methadone Screen Neg (NEG) Urine Barbiturates Neg (NEG) Urine Phencyclidine Screen Neg (NEG) Urine Amphetamine/Methamphetamine Neg (NEG) Urine Benzodiazepines Screen Neg (NEG) Urine Cocaine Screen Neg (NEG) Urine Cannabinoids Screen Neg (NEG) Urine Ethyl Alcohol Neg (NEG) Test 02/03/19 04:40 White Blood Count 5.7 x10^3/uL (4.0-11.0) Red Blood Count 4.01 x10^6/uL (4.30-5.70) Hemoglobin 7.7 g/dL (13.0-17.5) Hematocrit 25.7 % (39.0-53.0) Mean Corpuscular Volume 64 fL (79-100) Mean Corpuscular Hemoglobin 19 pg (25-35) Mean Corpuscular Hemoglobin Concent 30 g/dL (31-37) Red Cell Distribution Width 24.1 % (11.5-14.5) Platelet Count 196 x10^3/uL (140-400) Neutrophils (%) (Auto) 45 % (31-73) Lymphocytes (%) (Auto) 43 % (24-48) Monocytes (%) (Auto) 10 % (0-9) Eosinophils (%) (Auto) 2 % (0-3) Basophils (%) (Auto) 1 % (0-3) Neutrophils # (Auto) 2.6 x10^3uL (1.8-7.7) Lymphocytes # (Auto) 2.4 x10^3/uL (1.0-4.8) Monocytes # (Auto) 0.6 x10^3/uL (0.0-1.1) Eosinophils # (Auto) 0.1 x10^3/uL (0.0-0.7) Basophils # (Auto) 0.0 x10^3/uL (0.0-0.2) Sodium Level 142 mmol/L (136-145) Potassium Level 4.4 mmol/L (3.5-5.1) Chloride Level 107 mmol/L (98-107) Carbon Dioxide Level 26 mmol/L (21-32) Anion Gap 9 (6-14) Blood Urea Nitrogen 27 mg/dL (8-26) Creatinine 1.7 mg/dL (0.7-1.3) Estimated GFR (Cockcroft-Gault) 51.7 BUN/Creatinine Ratio 16 (6-20) Glucose Level 101 mg/dL (70-99) Calcium Level 8.6 mg/dL (8.5-10.1) Magnesium Level 2.1 mg/dL (1.8-2.4) Total Bilirubin 0.3 mg/dL (0.2-1.0) Aspartate Amino Transf (AST/SGOT) 47 U/L (15-37) Alanine Aminotransferase (ALT/SGPT) 65 U/L (16-63) Alkaline Phosphatase 88 U/L (46-116) Total Protein 5.9 g/dL (6.4-8.2) Albumin 2.5 g/dL (3.4-5.0) Albumin/Globulin Ratio 0.7 (1.0-1.7) Laboratory Tests Test 02/02/19 13:30 02/03/19 04:40 Troponin I Quantitative 0.172 ng/mL (0.000-0.055) White Blood Count 5.7 x10^3/uL (4.0-11.0) Red Blood Count 4.01 x10^6/uL (4.30-5.70) Hemoglobin 7.7 g/dL (13.0-17.5) Hematocrit 25.7 % (39.0-53.0) Mean Corpuscular Volume 64 fL (79-100) Mean Corpuscular Hemoglobin 19 pg (25-35) Mean Corpuscular Hemoglobin Concent 30 g/dL (31-37) Red Cell Distribution Width 24.1 % (11.5-14.5) Platelet Count 196 x10^3/uL (140-400) Neutrophils (%) (Auto) 45 % (31-73) Lymphocytes (%) (Auto) 43 % (24-48) Monocytes (%) (Auto) 10 % (0-9) Eosinophils (%) (Auto) 2 % (0-3) Basophils (%) (Auto) 1 % (0-3) Neutrophils # (Auto) 2.6 x10^3uL (1.8-7.7) Lymphocytes # (Auto) 2.4 x10^3/uL (1.0-4.8) Monocytes # (Auto) 0.6 x10^3/uL (0.0-1.1) Eosinophils # (Auto) 0.1 x10^3/uL (0.0-0.7) Basophils # (Auto) 0.0 x10^3/uL (0.0-0.2) Sodium Level 142 mmol/L (136-145) Potassium Level 4.4 mmol/L (3.5-5.1) Chloride Level 107 mmol/L (98-107) Carbon Dioxide Level 26 mmol/L (21-32) Anion Gap 9 (6-14) Blood Urea Nitrogen 27 mg/dL (8-26) Creatinine 1.7 mg/dL (0.7-1.3) Estimated GFR (Cockcroft-Gault) 51.7 BUN/Creatinine Ratio 16 (6-20) Glucose Level 101 mg/dL (70-99) Calcium Level 8.6 mg/dL (8.5-10.1) Magnesium Level 2.1 mg/dL (1.8-2.4) Total Bilirubin 0.3 mg/dL (0.2-1.0) Aspartate Amino Transf (AST/SGOT) 47 U/L (15-37) Alanine Aminotransferase (ALT/SGPT) 65 U/L (16-63) Alkaline Phosphatase 88 U/L (46-116) Total Protein 5.9 g/dL (6.4-8.2) Albumin 2.5 g/dL (3.4-5.0) Albumin/Globulin Ratio 0.7 (1.0-1.7) Medications Current Medications Nitroglycerin (Nitro-Bid Oint) 1 inch 1X ONCE TP Last administered on at 05:58; Start 02/02/19 at 06:00; Stop 02/02/19 at 06:01; Status DC Furosemide (Lasix) 40 mg 1X ONCE IVP Last administered on 02/02/19at 05:58; Start 02/02/19 at 06:00; Stop 02/02/19 at 06:01; Status DC Albuterol/ Ipratropium (Duoneb) 3 ml 1X ONCE NEB Last administered on at 06:15; Start 02/02/19 at 06:15; Stop 02/02/19 at 06:16; Status DC Aspirin (Children'S Aspirin) 324 mg 1X ONCE PO Last administered on 02/02/19at 06:34; Start 02/02/19 at 06:30; Stop 02/02/19 at 06:31; Status DC Ondansetron HCl (Zofran) 4 mg PRN Q8HRS PRN IV NAUSEA/VOMITING Last administered on 02/02/19at 07:02; Start 02/02/19 at 07:00; Stop 02/03/19 at 06:59 ; Status DC Morphine Sulfate (Morphine Sulfate) 2 mg PRN Q2HR PRN IV PAIN Last administered on 02/02/19 07:04; Start 02/02/19 at 07:00; Stop 02/03/19 at 06:59 ; Status DC Acetaminophen (Tylenol) 650 mg PRN Q4HRS PRN PO FEVER Last administered on 02/02 09:40; Start 02/02/19 at 07:00; Stop 02/03/19 at 06:59; Status DC Nitroglycerin (Nitrostat) 0.4 mg PRN Q5MIN PRN SL CHEST PAIN; Start 02/02/19 at 07:00; Stop 02/03/19 at 06:59; Status DC Albuterol/ Ipratropium (Duoneb) 3 ml RTQID NEB Last administered on 02/02/19 18:57; Start 02/02/19 at 08:00; Stop 02/03/19 at 07:59; Status DC Amlodipine Besylate (Norvasc) 10 mg BID PO Last administered on 02/03/19 08:41 ; Start 02/02/19 at 21:00 Atorvastatin Calcium (Lipitor) 20 mg DAILY PO ; Start 02/02/19 at 10:00; Stop at 10:47; Status DC Carvedilol (Coreg) 25 mg BIDWMEALS PO Last administered on 02/03/19 08:40; Start 02/02/19 at 17:00 Clopidogrel Bisulfate (Plavix) 75 mg DAILY PO Last administered on 02/03/19 08 :40; Start 02/02/19 at 10:00 Fluticasone Propionate (Flonase) 2 spray DAILY NS Last administered on 08:46; Start 02/03/19 at 09:00 Furosemide (Lasix) 40 mg DAILY PO ; Start 02/03/19 at 09:00; Stop 02/03/19 at 09 :00; Status DC Acetaminophen/ Hydrocodone Bitart (Lortab 5/325) 1 tab PRN Q6HRS PRN PO PAIN Last administered on 02/03/19 04:52; Start 02/02/19 at 10:00 Isosorbide Mononitrate (Imdur) 60 mg DAILY PO Last administered on 02/03/19 08 :40; Start 02/02/19 at 10:00 Non-Formulary Medication (Albuterol Sulfate (Ventolin Hfa Inhaler)) 2 puff Q4HRS INH ; Start 02/02/19 at 12:00; Status UNV Hydralazine HCl (Apresoline) 100 mg TID PO Last administered on 02/03/19at 08:41 ; Start 02/02/19 at 14:00 Non-Formulary Medication (Methylprednisolone (Medrol)) 1 pkg UD PO ; Start 02/02 at 10:00; Status UNV Pantoprazole Sodium (Protonix) 40 mg BIDAC PO Last administered on 02/03/19at 08 :39; Start 02/02/19 at 16:30 Atorvastatin Calcium (Lipitor) 20 mg QHS PO Last administered on 02/02/19at 20: 17; Start 02/02/19 at 21:00 Carvedilol (Coreg) 25 mg 1X ONCE PO Last administered on 02/02/19at 11:06; Start 02/02/19 at 11:00; Stop 02/02/19 at 11:01; Status DC Furosemide (Lasix) 40 mg DAILY IVP Last administered on 02/03/19at 08:39; Start 02/02/19 at 11:45 Potassium Chloride (Klor-Con) 40 meq 1X ONCE PO Last administered on at 12:45; Start 02/02/19 at 11:45; Stop 02/02/19 at 11:48; Status DC Active Scripts Active Medrol (Methylprednisolone) 4 Mg Tab.ds.pk 1 Pkg PO UD Hydrocodone-Acetamin 5-325 mg (Hydrocodone/Acetaminophen) 1 Each Tablet 1 Each PO PRN Q6HRS PRN 6 Days [Pantoprazole] 40 MG Tablet.dr 40 Mg PO BIDAC Ventolin Hfa Inhaler (Albuterol Sulfate) 18 Gm Hfa.aer.ad 2 Puff INH Q4HRS 20 Days Furosemide 40 Mg Tablet 40 Mg PO DAILY 30 Days Carvedilol (Carvedilol) 12.5 Mg Tablet 25 Mg PO BIDWMEALS 30 Days Isosorbide Mononitrate Er (Isosorbide Mononitrate) 30 Mg Tab.er.24h 60 Mg PO DAILY 30 Days Hydralazine Hcl 50 Mg Tablet 100 Mg PO TID 30 Days Lipitor (Atorvastatin Calcium) 20 Mg Tablet 1 Tab PO DAILY Fluticasone Propionate Nasal [place] (Fluticasone Propionate) 1 [place] 2 [place] NS DAILY Reported Clopidogrel (Clopidogrel Bisulfate) 75 Mg Tablet 1 Tab PO DAILY Amlodipine Besylate 10 Mg Tablet 10 Mg PO BID Vitals/I & O Vital Sign - Last 24 Hours 02/02/19 02/02/19 02/02/19 02/02/19 11:00 11:06 12:44 12:44 Temp 98.1 98.1 Pulse 96 92 92 Resp 16 22 B/P (MAP) 156/89 (111) 154/90 154/90 Pulse Ox 85 85 O2 Delivery Room Air Nasal Cannula O2 Flow Rate 2.0 02/02/19 02/02/19 02/02/19 02/02/19 13:10 13:40 15:00 18:22 Temp 98.0 98.0 Pulse 73 73 Resp 20 16 B/P (MAP) 120/59 (79) 120/59 Pulse Ox 98 98 O2 Delivery Room Air Room Air O2 Flow Rate 2.0 02/02/19 02/02/19 02/02/19 02/02/19 18:57 19:02 20:18 20:19 Temp 98.5 98.5 Pulse 85 85 85 Resp 16 B/P (MAP) 143/87 (105) 143/87 143/87 Pulse Ox 98 94 O2 Delivery Room Air Room Air 02/02/19 02/02/19 02/02/19 02/03/19 20:20 21:20 22:18 03:07 Temp 98.5 98.1 98.5 98.1 Pulse 80 78 Resp 16 18 B/P (MAP) 130/91 (104) 124/80 (95) Pulse Ox 91 90 O2 Delivery Room Air Room Air Room Air Room Air 02/03/19 02/03/19 02/03/19 02/03/19 04:52 07:00 08:00 08:40 Temp 98.0 98.0 Pulse 80 80 Resp 18 B/P (MAP) 152/103 (119) 152/103 Pulse Ox 100 O2 Delivery Nasal Cannula Room Air Nasal Cannula O2 Flow Rate 2.0 2.0 02/03/19 02/03/19 02/03/19 08:40 08:41 08:41 Pulse 80 80 80 B/P (MAP) 152/103 152/103 152/103 Intake and Output 02/02/19 02/02/19 02/03/19 15:00 23:00 07:00 Intake Total 180 ml 60 ml 640 ml Output Total 500 ml 1000 ml 250 ml Balance -320 ml -940 ml 390 ml KARLY MITCHELL III DO Feb 03, 2019 11:02
[2019-02-03 15:00] VITALS: BP 133/82
--- NOTE | 2019-02-03 17:15 | PDOC ---
PROGRESS NOTES Subjective Subjective Patient seen and examined He is more comfortable today. Objective Objective Vital Signs Date Time Temp Pulse Resp B/P (MAP) Pulse Ox O2 Delivery O2 Flow Rate FiO2 02/03/19 17:03 76 133/82 02/03/19 15:00 98.1 18 100 Room Air 98.1 02/03/19 08:00 2.0 Intake and Output 02/03/19 07:00 Intake Total 880 ml Output Total 1750 ml Balance -870 ml Intake Oral 880 ml Output Urine Total 1750 ml # Voids 2 Physical Exam Abdomen: Normal bowel sounds Heart: Regular rate General: mild distress Lungs: Other (mildly decreased breath sounds) Assessment Assessment Problems Medical Problems: (1) CHF exacerbation Status: Acute (2) Elevated troponin I level Status: Acute Assessment/Plan 1. Acute on chronic systolic heart failure. Previous workup as above. Patient is improved on diuresis. He is not taking his medication for at least one day and possibly longer. He was discharged 5 days ago. We'll continue with diuresis and monitoring of lab. We'll attempt to arrange close outpatient monitoring once discharged. 2. Coronary artery disease. History of stenting at . Continue medical treatment. 3. Hypertension. Continue present medications. Improved. 4. Hyperlipidemia. Statin medication. 5. COPD. Patient has discontinued smoking. 6. Noncompliance. 7. History of cocaine use. Drug screen on this admission is negative. Drug screen earlier this month was positive. 8. Anemia with a H/H of 7.7/25.7. Will monitor. Comment Review of Relevant I have reviewed the following items coleman (where applicable) has been applied. Labs Laboratory Tests Test 02/02/19 05:50 02/02/19 06:35 02/02/19 09:50 02/02/19 13:30 White Blood Count 8.2 x10^3/uL (4.0-11.0) Red Blood Count 4.30 x10^6/uL (4.30-5.70) Hemoglobin 8.3 g/dL (13.0-17.5) Hematocrit 27.4 % (39.0-53.0) Mean Corpuscular Volume 64 fL (79-100) Mean Corpuscular Hemoglobin 19 pg (25-35) Mean Corpuscular Hemoglobin Concent 30 g/dL (31-37) Red Cell Distribution Width 24.2 % (11.5-14.5) Platelet Count 232 x10^3/uL (140-400) Neutrophils (%) (Auto) 57 % (31-73) Lymphocytes (%) (Auto) 34 % (24-48) Monocytes (%) (Auto) 7 % (0-9) Eosinophils (%) (Auto) 1 % (0-3) Basophils (%) (Auto) 1 % (0-3) Neutrophils # (Auto) 4.7 x10^3uL (1.8-7.7) Lymphocytes # (Auto) 2.7 x10^3/uL (1.0-4.8) Monocytes # (Auto) 0.6 x10^3/uL (0.0-1.1) Eosinophils # (Auto) 0.1 x10^3/uL (0.0-0.7) Basophils # (Auto) 0.1 x10^3/uL (0.0-0.2) Segmented Neutrophils % 60 % (35-66) Lymphocytes % 27 % (24-48) Atypical Lymphocytes % (Manual) 2 % (0-0) Monocytes % 9 % (0-10) Eosinophils % 1 % (0-5) Basophils % 1 % (0-3) Platelet Estimate Adequate (ADEQUATE) Polychromasia Present Hypochromasia Marked Poikilocytosis Present Anisocytosis Present Microcytosis Marked Target Cells Present Tear Drop Cells Occ Ovalocytes Present Schistocytes Occ Prothrombin Time 13.6 SEC (11.7-14.0) Prothromb Time International Ratio 1.1 (0.8-1.1) Sodium Level 141 mmol/L (136-145) Potassium Level 4.3 mmol/L (3.5-5.1) Chloride Level 106 mmol/L (98-107) Carbon Dioxide Level 28 mmol/L (21-32) Anion Gap 7 (6-14) Blood Urea Nitrogen 18 mg/dL (8-26) Creatinine 1.3 mg/dL (0.7-1.3) Estimated GFR (Cockcroft-Gault) 70.4 BUN/Creatinine Ratio 14 (6-20) Glucose Level 98 mg/dL (70-99) Calcium Level 8.8 mg/dL (8.5-10.1) Total Bilirubin 0.5 mg/dL (0.2-1.0) Aspartate Amino Transf (AST/SGOT) 44 U/L (15-37) Alanine Aminotransferase (ALT/SGPT) 72 U/L (16-63) Alkaline Phosphatase 95 U/L (46-116) Troponin I Quantitative 0.196 ng/mL (0.000-0.055) 0.182 ng/mL (0.000-0.055) 0.172 ng/mL (0.000-0.055) [id number]-[id number]-Type Natriuretic Peptide 4690 pg/mL (0-124) Total Protein 6.7 g/dL (6.4-8.2) Albumin 2.9 g/dL (3.4-5.0) Albumin/Globulin Ratio 0.8 (1.0-1.7) Urine Opiates Screen Neg (NEG) Urine Methadone Screen Neg (NEG) Urine Barbiturates Neg (NEG) Urine Phencyclidine Screen Neg (NEG) Urine Amphetamine/Methamphetamine Neg (NEG) Urine Benzodiazepines Screen Neg (NEG) Urine Cocaine Screen Neg (NEG) Urine Cannabinoids Screen Neg (NEG) Urine Ethyl Alcohol Neg (NEG) Test 02/03/19 04:40 White Blood Count 5.7 x10^3/uL (4.0-11.0) Red Blood Count 4.01 x10^6/uL (4.30-5.70) Hemoglobin 7.7 g/dL (13.0-17.5) Hematocrit 25.7 % (39.0-53.0) Mean Corpuscular Volume 64 fL (79-100) Mean Corpuscular Hemoglobin 19 pg (25-35) Mean Corpuscular Hemoglobin Concent 30 g/dL (31-37) Red Cell Distribution Width 24.1 % (11.5-14.5) Platelet Count 196 x10^3/uL (140-400) Neutrophils (%) (Auto) 45 % (31-73) Lymphocytes (%) (Auto) 43 % (24-48) Monocytes (%) (Auto) 10 % (0-9) Eosinophils (%) (Auto) 2 % (0-3) Basophils (%) (Auto) 1 % (0-3) Neutrophils # (Auto) 2.6 x10^3uL (1.8-7.7) Lymphocytes # (Auto) 2.4 x10^3/uL (1.0-4.8) Monocytes # (Auto) 0.6 x10^3/uL (0.0-1.1) Eosinophils # (Auto) 0.1 x10^3/uL (0.0-0.7) Basophils # (Auto) 0.0 x10^3/uL (0.0-0.2) Sodium Level 142 mmol/L (136-145) Potassium Level 4.4 mmol/L (3.5-5.1) Chloride Level 107 mmol/L (98-107) Carbon Dioxide Level 26 mmol/L (21-32) Anion Gap 9 (6-14) Blood Urea Nitrogen 27 mg/dL (8-26) Creatinine 1.7 mg/dL (0.7-1.3) Estimated GFR (Cockcroft-Gault) 51.7 BUN/Creatinine Ratio 16 (6-20) Glucose Level 101 mg/dL (70-99) Calcium Level 8.6 mg/dL (8.5-10.1) Magnesium Level 2.1 mg/dL (1.8-2.4) Total Bilirubin 0.3 mg/dL (0.2-1.0) Aspartate Amino Transf (AST/SGOT) 47 U/L (15-37) Alanine Aminotransferase (ALT/SGPT) 65 U/L (16-63) Alkaline Phosphatase 88 U/L (46-116) Total Protein 5.9 g/dL (6.4-8.2) Albumin 2.5 g/dL (3.4-5.0) Albumin/Globulin Ratio 0.7 (1.0-1.7) Laboratory Tests Test 02/03/19 04:40 White Blood Count 5.7 x10^3/uL (4.0-11.0) Red Blood Count 4.01 x10^6/uL (4.30-5.70) Hemoglobin 7.7 g/dL (13.0-17.5) Hematocrit 25.7 % (39.0-53.0) Mean Corpuscular Volume 64 fL (79-100) Mean Corpuscular Hemoglobin 19 pg (25-35) Mean Corpuscular Hemoglobin Concent 30 g/dL (31-37) Red Cell Distribution Width 24.1 % (11.5-14.5) Platelet Count 196 x10^3/uL (140-400) Neutrophils (%) (Auto) 45 % (31-73) Lymphocytes (%) (Auto) 43 % (24-48) Monocytes (%) (Auto) 10 % (0-9) Eosinophils (%) (Auto) 2 % (0-3) Basophils (%) (Auto) 1 % (0-3) Neutrophils # (Auto) 2.6 x10^3uL (1.8-7.7) Lymphocytes # (Auto) 2.4 x10^3/uL (1.0-4.8) Monocytes # (Auto) 0.6 x10^3/uL (0.0-1.1) Eosinophils # (Auto) 0.1 x10^3/uL (0.0-0.7) Basophils # (Auto) 0.0 x10^3/uL (0.0-0.2) Sodium Level 142 mmol/L (136-145) Potassium Level 4.4 mmol/L (3.5-5.1) Chloride Level 107 mmol/L (98-107) Carbon Dioxide Level 26 mmol/L (21-32) Anion Gap 9 (6-14) Blood Urea Nitrogen 27 mg/dL (8-26) Creatinine 1.7 mg/dL (0.7-1.3) Estimated GFR (Cockcroft-Gault) 51.7 BUN/Creatinine Ratio 16 (6-20) Glucose Level 101 mg/dL (70-99) Calcium Level 8.6 mg/dL (8.5-10.1) Magnesium Level 2.1 mg/dL (1.8-2.4) Total Bilirubin 0.3 mg/dL (0.2-1.0) Aspartate Amino Transf (AST/SGOT) 47 U/L (15-37) Alanine Aminotransferase (ALT/SGPT) 65 U/L (16-63) Alkaline Phosphatase 88 U/L (46-116) Total Protein 5.9 g/dL (6.4-8.2) Albumin 2.5 g/dL (3.4-5.0) Albumin/Globulin Ratio 0.7 (1.0-1.7) Medications Current Medications Nitroglycerin (Nitro-Bid Oint) 1 inch 1X ONCE TP Last administered on at 05:58; Start 02/02/19 at 06:00; Stop 02/02/19 at 06:01; Status DC Furosemide (Lasix) 40 mg 1X ONCE IVP Last administered on 02/02/19at 05:58; Start 02/02/19 at 06:00; Stop 02/02/19 at 06:01; Status DC Albuterol/ Ipratropium (Duoneb) 3 ml 1X ONCE NEB Last administered on at 06:15; Start 02/02/19 at 06:15; Stop 02/02/19 at 06:16; Status DC Aspirin (Children'S Aspirin) 324 mg 1X ONCE PO Last administered on 02/02/19at 06:34; Start 02/02/19 at 06:30; Stop 02/02/19 at 06:31; Status DC Ondansetron HCl (Zofran) 4 mg PRN Q8HRS PRN IV NAUSEA/VOMITING Last administered on 02/02/19at 07:02; Start 02/02/19 at 07:00; Stop 02/03/19 at 06:59 ; Status DC Morphine Sulfate (Morphine Sulfate) 2 mg PRN Q2HR PRN IV PAIN Last administered on 02/02/19at 07:04; Start 02/02/19 at 07:00; Stop 02/03/19 at 06:59 ; Status DC Acetaminophen (Tylenol) 650 mg PRN Q4HRS PRN PO FEVER Last administered on 02/02at 09:40; Start 02/02/19 at 07:00; Stop 02/03/19 at 06:59; Status DC Nitroglycerin (Nitrostat) 0.4 mg PRN Q5MIN PRN SL CHEST PAIN; Start 02/02/19 at 07:00; Stop 02/03/19 at 06:59; Status DC Albuterol/ Ipratropium (Duoneb) 3 ml RTQID NEB Last administered on 02/02/19at 18:57; Start 02/02/19 at 08:00; Stop 02/03/19 at 07:59; Status DC Amlodipine Besylate (Norvasc) 10 mg BID PO Last administered on 02/03/19at 08:41 ; Start 02/02/19 at 21:00 Atorvastatin Calcium (Lipitor) 20 mg DAILY PO ; Start 02/02/19 at 10:00; Stop at 10:47; Status DC Carvedilol (Coreg) 25 mg BIDWMEALS PO Last administered on 02/03/19 17:03; Start 02/02/19 at 17:00 Clopidogrel Bisulfate (Plavix) 75 mg DAILY PO Last administered on 02/03/19 08 :40; Start 02/02/19 at 10:00 Fluticasone Propionate (Flonase) 2 spray DAILY NS Last administered on 08:46; Start 02/03/19 at 09:00 Furosemide (Lasix) 40 mg DAILY PO ; Start 02/03/19 at 09:00; Stop 02/03/19 at 09 :00; Status DC Acetaminophen/ Hydrocodone Bitart (Lortab 5/325) 1 tab PRN Q6HRS PRN PO PAIN Last administered on 02/03/19 14:43; Start 02/02/19 at 10:00 Isosorbide Mononitrate (Imdur) 60 mg DAILY PO Last administered on 02/03/19 08 :40; Start 02/02/19 at 10:00 Non-Formulary Medication (Albuterol Sulfate (Ventolin Hfa Inhaler)) 2 puff Q4HRS INH ; Start 02/02/19 at 12:00; Status UNV Hydralazine HCl (Apresoline) 100 mg TID PO Last administered on 02/03/19 13:10 ; Start 02/02/19 at 14:00 Non-Formulary Medication (Methylprednisolone (Medrol)) 1 pkg UD PO ; Start 02/02 at 10:00; Status UNV Pantoprazole Sodium (Protonix) 40 mg BIDAC PO Last administered on 02/03/19 17 :03; Start 02/02/19 at 16:30 Atorvastatin Calcium (Lipitor) 20 mg QHS PO Last administered on 02/02/19 20: 17; Start 02/02/19 at 21:00 Carvedilol (Coreg) 25 mg 1X ONCE PO Last administered on 02/02/19 11:06; Start 02/02/19 at 11:00; Stop 02/02/19 at 11:01; Status DC Furosemide (Lasix) 40 mg DAILY IVP Last administered on 02/03/19 08:39; Start 02/02/19 at 11:45 Potassium Chloride (Klor-Con) 40 meq 1X ONCE PO Last administered on at 12:45; Start 02/02/19 at 11:45; Stop 02/02/19 at 11:48; Status DC Active Scripts Active Medrol (Methylprednisolone) 4 Mg Tab.ds.pk 1 Pkg PO UD Hydrocodone-Acetamin 5-325 mg (Hydrocodone/Acetaminophen) 1 Each Tablet 1 Each PO PRN Q6HRS PRN 6 Days [Pantoprazole] 40 MG Tablet.dr 40 Mg PO BIDAC Ventolin Hfa Inhaler (Albuterol Sulfate) 18 Gm Hfa.aer.ad 2 Puff INH Q4HRS 20 Days Furosemide 40 Mg Tablet 40 Mg PO DAILY 30 Days Carvedilol (Carvedilol) 12.5 Mg Tablet 25 Mg PO BIDWMEALS 30 Days Isosorbide Mononitrate Er (Isosorbide Mononitrate) 30 Mg Tab.er.24h 60 Mg PO DAILY 30 Days Hydralazine Hcl 50 Mg Tablet 100 Mg PO TID 30 Days Lipitor (Atorvastatin Calcium) 20 Mg Tablet 1 Tab PO DAILY Fluticasone Propionate Nasal [place] (Fluticasone Propionate) 1 [place] 2 [place] NS DAILY Reported Clopidogrel (Clopidogrel Bisulfate) 75 Mg Tablet 1 Tab PO DAILY Amlodipine Besylate 10 Mg Tablet 10 Mg PO BID Vitals/I & O Vital Sign - Last 24 Hours 02/02/19 02/02/19 02/02/19 02/02/19 18:22 18:57 19:02 20:18 Temp 98.5 98.5 Pulse 73 85 85 Resp 16 B/P (MAP) 120/59 143/87 (105) 143/87 Pulse Ox 98 94 O2 Delivery Room Air Room Air 02/02/19 02/02/19 02/02/19 02/03/19 20:19 20:20 22:18 03:07 Temp 98.5 98.1 98.5 98.1 Pulse 85 80 78 Resp 16 18 B/P (MAP) 143/87 130/91 (104) 124/80 (95) Pulse Ox 91 90 O2 Delivery Room Air Room Air Room Air 02/03/19 02/03/19 02/03/19 02/03/19 04:52 07:00 07:00 08:00 Temp 98.0 98.0 Pulse 80 Resp 18 18 B/P (MAP) 152/103 (119) Pulse Ox 92 100 O2 Delivery Nasal Cannula Nasal Cannula Room Air Nasal Cannula O2 Flow Rate 2.0 2.0 02/03/19 02/03/19 02/03/19 02/03/19 08:40 08:40 08:41 08:41 Pulse 80 80 80 80 B/P (MAP) 152/103 152/103 152/103 152/103 02/03/19 02/03/19 02/03/19 02/03/19 11:00 13:10 14:43 15:00 Temp 97.4 98.1 97.4 98.1 Pulse 72 72 76 Resp 18 20 18 B/P (MAP) 114/61 (78) 114/61 133/82 (99) Pulse Ox 92 92 100 O2 Delivery Room Air Nasal Cannula Room Air 02/03/19 17:03 Pulse 76 B/P (MAP) 133/82 Intake and Output 02/02/19 02/02/19 02/03/19 15:00 23:00 07:00 Intake Total 180 ml 60 ml 640 ml Output Total 500 ml 1000 ml 250 ml Balance -320 ml -940 ml 390 ml PHILIP DUNAWAY MD Feb 03, 2019 17:15
[2019-02-03 19:28] VITALS: BP 127/84
[2019-02-03] MEDS: ATORVASTATIN CALCIUM 20 MG TABLET PO SCH (21:51)
[2019-02-03 22:51] VITALS: BP 143/91
[2019-02-04] VITALS (7 sets, daily range): BP systolic 118–153; BP diastolic 69–100
[2019-02-04] MEDS: FLUTICASONE 50MCG/NASAL SPRAY 16GM BOTTLE. NS SCH (08:25)
[2019-02-04] MEDS: ISOSORBIDE MONONITRATE ER 30 MG TAB.ER.24H PO SCH (08:25)
[2019-02-04] MEDS: CARVEDILOL 12.5 MG TABLET. PO SCH ×2 (08:26→16:47)
[2019-02-04] MEDS: PANTOPRAZOLE 40 MG TABLET.DR. PO SCH ×2 (08:28→16:47)
[2019-02-04] MEDS: HYDROcodone/APAP 5/325MG 1 TAB TABLET PO PRN ×2 (08:28→19:47)
[2019-02-04] MEDS: CLOPIDOGREL BISULFATE 75 MG TABLET PO SCH (08:28)
[2019-02-04] MEDS: amLODIPine BESYLATE 10 MG TABLET PO SCH ×2 (08:29→21:08)
[2019-02-04] MEDS: FUROSEMIDE 40 MG/4 ML VIAL. IVP SCH (08:30)
--- NOTE | 2019-02-04 11:15 | PDOC ---
PROGRESS NOTES Chief Complaint Chief Complaint Acute on chronic systolic heart failure likely 2/2 noncompliance, EF 31% on 2018 Chronic Renal Insufficiency (Cr 1.7 on 02/03) Coronary artery disease. History of stenting at Hypertension Hyperlipidemia COPD. Patient has discontinued smoking. History of cocaine use. Drug screen on this admission is negative. Drug screen earlier this month was positive History of Present Illness History of Present Illness Mr. Blanton is a 53 yo male presented with shortness of breath, found to have acute on chronic heart failure, MPI showed EF of 31%. Patient started on lasix, duoNebs. Cards following. Patient seen and examined, resting with NAD. Patient has no new complaints. Vitals Vitals Vital Signs Date Time Temp Pulse Resp B/P (MAP) Pulse Ox O2 Delivery O2 Flow Rate FiO2 02/04/19 08:29 70 153/100 02/04/19 08:28 21 94 Room Air 02/04/19 07:29 97.6 97.6 02/03/19 08:00 2.0 Physical Exam General: Alert, Oriented X3, Cooperative, No acute distress Heart: Regular rate, No murmurs Lungs: Clear Abdomen: Normal bowel sounds, Soft, No tenderness Extremities: No clubbing, No cyanosis, No edema Skin: No rashes, No significant lesion Review of Systems Review of Systems Denies abdominal pain Denies chest pain Denies shortness of breath Reports reduced urine output Assessment and Plan Assessmemt and Plan Problems Medical Problems: (1) CHF exacerbation Status: Acute (2) Elevated troponin I level Status: Acute Assessment: Acute on chronic systolic heart failure likely 2/2 noncompliance, EF 31% on 2018 Chronic Renal Insufficiency (Cr 1.7 on 02/03) Coronary artery disease. History of stenting at Hypertension Hyperlipidemia COPD. Patient has discontinued smoking. History of cocaine use. Drug screen on this admission is negative. Drug screen earlier this month was positive Plan: Continue IV lasix appreciate Cards input Monitor urine output Monitor Cr Review labs in the am PT/OT Continue duo Comment Review of Relevant I have reviewed the following items coleman (where applicable) has been applied. Labs Laboratory Tests Test 02/02/19 13:30 02/03/19 04:40 Troponin I Quantitative 0.172 ng/mL (0.000-0.055) White Blood Count 5.7 x10^3/uL (4.0-11.0) Red Blood Count 4.01 x10^6/uL (4.30-5.70) Hemoglobin 7.7 g/dL (13.0-17.5) Hematocrit 25.7 % (39.0-53.0) Mean Corpuscular Volume 64 fL (79-100) Mean Corpuscular Hemoglobin 19 pg (25-35) Mean Corpuscular Hemoglobin Concent 30 g/dL (31-37) Red Cell Distribution Width 24.1 % (11.5-14.5) Platelet Count 196 x10^3/uL (140-400) Neutrophils (%) (Auto) 45 % (31-73) Lymphocytes (%) (Auto) 43 % (24-48) Monocytes (%) (Auto) 10 % (0-9) Eosinophils (%) (Auto) 2 % (0-3) Basophils (%) (Auto) 1 % (0-3) Neutrophils # (Auto) 2.6 x10^3uL (1.8-7.7) Lymphocytes # (Auto) 2.4 x10^3/uL (1.0-4.8) Monocytes # (Auto) 0.6 x10^3/uL (0.0-1.1) Eosinophils # (Auto) 0.1 x10^3/uL (0.0-0.7) Basophils # (Auto) 0.0 x10^3/uL (0.0-0.2) Sodium Level 142 mmol/L (136-145) Potassium Level 4.4 mmol/L (3.5-5.1) Chloride Level 107 mmol/L (98-107) Carbon Dioxide Level 26 mmol/L (21-32) Anion Gap 9 (6-14) Blood Urea Nitrogen 27 mg/dL (8-26) Creatinine 1.7 mg/dL (0.7-1.3) Estimated GFR (Cockcroft-Gault) 51.7 BUN/Creatinine Ratio 16 (6-20) Glucose Level 101 mg/dL (70-99) Calcium Level 8.6 mg/dL (8.5-10.1) Magnesium Level 2.1 mg/dL (1.8-2.4) Total Bilirubin 0.3 mg/dL (0.2-1.0) Aspartate Amino Transf (AST/SGOT) 47 U/L (15-37) Alanine Aminotransferase (ALT/SGPT) 65 U/L (16-63) Alkaline Phosphatase 88 U/L (46-116) Total Protein 5.9 g/dL (6.4-8.2) Albumin 2.5 g/dL (3.4-5.0) Albumin/Globulin Ratio 0.7 (1.0-1.7) Medications Current Medications Nitroglycerin (Nitro-Bid Oint) 1 inch 1X ONCE TP Last administered on at 05:58; Start 02/02/19 at 06:00; Stop 02/02/19 at 06:01; Status DC Furosemide (Lasix) 40 mg 1X ONCE IVP Last administered on 02/02/19at 05:58; Start 02/02/19 at 06:00; Stop 02/02/19 at 06:01; Status DC Albuterol/ Ipratropium (Duoneb) 3 ml 1X ONCE NEB Last administered on at 06:15; Start 02/02/19 at 06:15; Stop 02/02/19 at 06:16; Status DC Aspirin (Children'S Aspirin) 324 mg 1X ONCE PO Last administered on 02/02/19at 06:34; Start 02/02/19 at 06:30; Stop 02/02/19 at 06:31; Status DC Ondansetron HCl (Zofran) 4 mg PRN Q8HRS PRN IV NAUSEA/VOMITING Last administered on 02/02/19at 07:02; Start 02/02/19 at 07:00; Stop 02/03/19 at 06:59 ; Status DC Morphine Sulfate (Morphine Sulfate) 2 mg PRN Q2HR PRN IV PAIN Last administered on 02/02/19at 07:04; Start 02/02/19 at 07:00; Stop 02/03/19 at 06:59 ; Status DC Acetaminophen (Tylenol) 650 mg PRN Q4HRS PRN PO FEVER Last administered on 02/02at 09:40; Start 02/02/19 at 07:00; Stop 02/03/19 at 06:59; Status DC Nitroglycerin (Nitrostat) 0.4 mg PRN Q5MIN PRN SL CHEST PAIN; Start 02/02/19 at 07:00; Stop 02/03/19 at 06:59; Status DC Albuterol/ Ipratropium (Duoneb) 3 ml RTQID NEB Last administered on 02/02/19 18:57; Start 02/02/19 at 08:00; Stop 02/03/19 at 07:59; Status DC Amlodipine Besylate (Norvasc) 10 mg BID PO Last administered on 02/04/19 08:29 ; Start 02/02/19 at 21:00 Atorvastatin Calcium (Lipitor) 20 mg DAILY PO ; Start 02/02/19 at 10:00; Stop at 10:47; Status DC Carvedilol (Coreg) 25 mg BIDWMEALS PO Last administered on 02/04/19 08:26; Start 02/02/19 at 17:00 Clopidogrel Bisulfate (Plavix) 75 mg DAILY PO Last administered on 02/04/19 08 :28; Start 02/02/19 at 10:00 Fluticasone Propionate (Flonase) 2 spray DAILY NS Last administered on 08:25; Start 02/03/19 at 09:00 Furosemide (Lasix) 40 mg DAILY PO ; Start 02/03/19 at 09:00; Stop 02/03/19 at 09 :00; Status DC Acetaminophen/ Hydrocodone Bitart (Lortab 5/325) 1 tab PRN Q6HRS PRN PO PAIN Last administered on 02/04/19 08:28; Start 02/02/19 at 10:00 Isosorbide Mononitrate (Imdur) 60 mg DAILY PO Last administered on 02/04/19 08 :25; Start 02/02/19 at 10:00 Non-Formulary Medication (Albuterol Sulfate (Ventolin Hfa Inhaler)) 2 puff Q4HRS INH ; Start 02/02/19 at 12:00; Status UNV Hydralazine HCl (Apresoline) 100 mg TID PO Last administered on 02/04/19 08:26 ; Start 02/02/19 at 14:00 Non-Formulary Medication (Methylprednisolone (Medrol)) 1 pkg UD PO ; Start 02/02 at 10:00; Status UNV Pantoprazole Sodium (Protonix) 40 mg BIDAC PO Last administered on 02/04/19 08 :28; Start 02/02/19 at 16:30 Atorvastatin Calcium (Lipitor) 20 mg QHS PO Last administered on 02/03/19at 21: 51; Start 02/02/19 at 21:00 Carvedilol (Coreg) 25 mg 1X ONCE PO Last administered on 02/02/19at 11:06; Start 02/02/19 at 11:00; Stop 02/02/19 at 11:01; Status DC Furosemide (Lasix) 40 mg DAILY IVP Last administered on 02/04/19at 08:30; Start 02/02/19 at 11:45 Potassium Chloride (Klor-Con) 40 meq 1X ONCE PO Last administered on at 12:45; Start 02/02/19 at 11:45; Stop 02/02/19 at 11:48; Status DC Active Scripts Active Medrol (Methylprednisolone) 4 Mg Tab.ds.pk 1 Pkg PO UD Hydrocodone-Acetamin 5-325 mg (Hydrocodone/Acetaminophen) 1 Each Tablet 1 Each PO PRN Q6HRS PRN 6 Days [Pantoprazole] 40 MG Tablet.dr 40 Mg PO BIDAC Ventolin Hfa Inhaler (Albuterol Sulfate) 18 Gm Hfa.aer.ad 2 Puff INH Q4HRS 20 Days Furosemide 40 Mg Tablet 40 Mg PO DAILY 30 Days Carvedilol (Carvedilol) 12.5 Mg Tablet 25 Mg PO BIDWMEALS 30 Days Isosorbide Mononitrate Er (Isosorbide Mononitrate) 30 Mg Tab.er.24h 60 Mg PO DAILY 30 Days Hydralazine Hcl 50 Mg Tablet 100 Mg PO TID 30 Days Lipitor (Atorvastatin Calcium) 20 Mg Tablet 1 Tab PO DAILY Fluticasone Propionate Nasal [place] (Fluticasone Propionate) 1 [place] 2 [place] NS DAILY Reported Clopidogrel (Clopidogrel Bisulfate) 75 Mg Tablet 1 Tab PO DAILY Amlodipine Besylate 10 Mg Tablet 10 Mg PO BID Vitals/I & O Vital Sign - Last 24 Hours 02/03/19 02/03/19 02/03/19 02/03/19 13:10 14:43 15:00 15:40 Temp 98.1 98.1 Pulse 72 76 Resp 20 18 20 B/P (MAP) 114/61 133/82 (99) Pulse Ox 92 100 100 O2 Delivery Nasal Cannula Room Air 02/03/19 02/03/19 02/03/19 02/03/19 17:03 19:28 21:50 21:51 Temp 98.4 98.4 Pulse 76 75 75 75 Resp 16 B/P (MAP) 133/82 127/84 (98) 127/84 127/84 Pulse Ox 95 O2 Delivery Room Air 02/03/19 02/03/19 02/03/19 02/04/19 21:51 22:51 22:51 02:06 Temp 98.1 98.3 98.1 98.3 Pulse 84 78 Resp 16 16 B/P (MAP) 143/91 (108) 147/95 (112) Pulse Ox 96 97 O2 Delivery Room Air Room Air Room Air Room Air 02/04/19 02/04/19 02/04/19 02/04/19 07:29 08:25 08:26 08:26 Temp 97.6 97.6 Pulse 70 70 70 70 Resp 20 B/P (MAP) 153/100 (117) 153/100 153/100 153/100 Pulse Ox 98 O2 Delivery Room Air 02/04/19 02/04/19 08:28 08:29 Pulse 70 Resp 21 B/P (MAP) 153/100 Pulse Ox 94 O2 Delivery Room Air Intake and Output 02/03/19 02/03/19 02/04/19 15:00 23:00 07:00 Intake Total 580 ml 420 ml 320 ml Output Total 1000 ml 1100 ml 175 ml Balance -420 ml -680 ml 145 ml KRALY MITCHELL III DO Feb 04, 2019 11:15
--- NOTE | 2019-02-04 12:10 | NUR ---
SS following for discharge planning. SS reviewed pt chart. Pt is self pay pt and is from home with spouse and currently on room air. No discharge needs noted at this time. SS will continue to follow for pending discharge needs.
--- NOTE | 2019-02-04 13:24 | PDOC ---
CARDIO Progress Notes Date and Time Date of Service 02/04/19 Time of Evaluation 1250 Subjective Subjective: No Chest Pain, No Palpitations, Other (SOA improved at rest, WEI persists) Vitals Vitals Vital Signs Date Time Temp Pulse Resp B/P (MAP) Pulse Ox O2 Delivery O2 Flow Rate FiO2 02/04/19 11:14 97.9 67 18 128/69 (88) 97 Room Air 97.9 02/03/19 08:00 2.0 Weight Weight [ ] Input and Output Intake and Output Intake and Output 02/04/19 07:00 Intake Total 1320 ml Output Total 2275 ml Balance -955 ml Intake Oral 1320 ml Output Urine Total 2275 ml Physical Exam HEENT: Neck Supple W Full Motion Chest: Symmetric LUNGS: Other (bibasilar crackles) Heart: S1S2, RRR, murmurs (2/6 sysotlic murmur ) Abdomen: Soft N/T Extremities: Other (1+ bilateral LE edema ) Neurology: alert, oriented, follow commands Assessment Assessment 1. Acute on chronic systolic/diastolic CHF: improved with diuresis LVEF 35% 2. Mild troponin elevation: peak 0.196. multifactorial. H/o chronic trop elevation ranging from 0.1 to 0.3. EKG SR without acute changes. 3. CAD: PCI/stent placement at in 2017 with patent stent from repeat [facility] in 3. COPD with moderate pulmonary HTN with continued tobaccoism 4. Accelerated HTN 5. HLP 6. 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 Bergeron in due to lack of health ins. 7. CKD: Cr stable at 1.7 8. Hx of recent PUD/GI bleed: 09/2018 EGD 9. Hx of substance abuse; +cocaine earlier this month. No negative. 10. Chronic normocytic anemia with Fe deficiency; Hgb 7.7 11. Noncompliance Recommendations Continue diurese with Lasix IV with monitoring of renal function Allergic to ACEi, continue with current BP regimen. Reinforced cocaine and tobacco cessation Continue with secondary prevention measures. Discussed 2000 FR , 2Gm Na diet, and daily weight monitoring Amyloidosis w/u as outpt SHRAVAN WOOD APRN Feb 04, 2019 13:24
[2019-02-04] MEDS: ATORVASTATIN CALCIUM 20 MG TABLET PO SCH (21:07)
[2019-02-05 03:00] VITALS: BP 120/77
[2019-02-05 06:26] LABS: BASO % 1 % (0-3); EOS % 1 % (0-3); HEMOGLOBIN 7.8 g/dL (13.0-17.5); LYMPH # 2.5 x10^3/uL (1.0-4.8); LYMPH % 47 % (24-48); MEAN CORPUSCULAR HEMOGLOBIN 19 pg (25-35); MEAN CORPUSCULAR HGB CONC 30 g/dL (31-37); MEAN CORPUSCULAR VOLUME 64 fL (79-100); MONO # 0.6 x10^3/uL (0.0-1.1); MONO % 10 % (0-9); NEUT # 2.2 x10^3uL (1.8-7.7); NEUT % 42 % (31-73); PLATELET COUNT 227 x10^3/uL (140-400); RED BLOOD COUNT 4.08 x10^6/uL (4.30-5.70); WHITE BLOOD COUNT 5.3 x10^3/uL (4.0-11.0)
[2019-02-05 06:51] LABS: ALBUMIN 2.7 g/dL (3.4-5.0); ALBUMIN/GLOBULIN RATIO 0.8 (1.0-1.7); CALCIUM 8.5 mg/dL (8.5-10.1); CREATININE 1.5 mg/dL (0.7-1.3); GFR 59.7; POTASSIUM 4.2 mmol/L (3.5-5.1); TOTAL BILIRUBIN 0.3 mg/dL (0.2-1.0); TOTAL PROTEIN 6.2 g/dL (6.4-8.2)
[2019-02-05 07:00] VITALS: BP 133/80
[2019-02-05 08:17] LABS: % EOS 3 % (0-5); % LYMPHS 27 % (24-48); % MONOS 12 % (0-10); % SEGS 58 % (35-66)
[2019-02-05 08:18] LABS: HYPOCHROMIA MARKED; PLT ESTIMATE ADEQUATE (ADEQUATE); POIKILOCYTOSIS PRESENT
[2019-02-05 08:19] LABS: ANISOCYTOSIS MOD; MICROCYTOSIS MARKED; OVALOCYTES PRESENT
[2019-02-05 08:20] LABS: SCHISTOCYTES OCC
[2019-02-05] MEDS: ISOSORBIDE MONONITRATE ER 30 MG TAB.ER.24H PO SCH (09:25)
[2019-02-05 09:26] VITALS: BP 133/80
[2019-02-05] MEDS: PANTOPRAZOLE 40 MG TABLET.DR. PO SCH (09:26)
[2019-02-05] MEDS: amLODIPine BESYLATE 10 MG TABLET PO SCH (09:26)
[2019-02-05] MEDS: CARVEDILOL 12.5 MG TABLET. PO SCH (09:26)
[2019-02-05] MEDS: CLOPIDOGREL BISULFATE 75 MG TABLET PO SCH (09:26)
[2019-02-05] MEDS: FUROSEMIDE 40 MG/4 ML VIAL. IVP SCH (09:26)
[2019-02-05] MEDS: FLUTICASONE 50MCG/NASAL SPRAY 16GM BOTTLE. NS SCH (09:38)
--- NOTE | 2019-02-05 10:57 | PDOC ---
PROGRESS NOTES Chief Complaint Chief Complaint Acute on chronic systolic heart failure likely 2/2 noncompliance, EF 31% on 2018 Chronic Renal Insufficiency (Cr 1.7 on 02/03) Coronary artery disease. History of stenting at Hypertension Hyperlipidemia COPD. Patient has discontinued smoking. History of cocaine use. Drug screen on this admission is negative. Drug screen earlier this month was positive History of Present Illness History of Present Illness Mr. Blanton is a 53 yo male presented with shortness of breath, found to have acute on chronic heart failure, MPI showed EF of 31%. Patient started on lasix, duoNebs. Cards following. Patient seen and examined, sitting up in bed. He has no new complaints and is eager to be discharged. Patient denies worsening shortness of breath, fevers, chills. Vitals Vitals Vital Signs Date Time Temp Pulse Resp B/P (MAP) Pulse Ox O2 Delivery O2 Flow Rate FiO2 02/05/19 09:26 81 133/80 02/05/19 08:00 Room Air 02/05/19 07:00 98.0 18 94 98.0 Physical Exam General: Alert, Oriented X3, Cooperative, No acute distress Heart: Regular rate, No murmurs Lungs: Clear Abdomen: Normal bowel sounds, Soft, No tenderness Extremities: No clubbing, No cyanosis, No edema Skin: No rashes, No significant lesion Labs LABS Laboratory Tests Test 02/05/19 05:48 White Blood Count 5.3 x10^3/uL (4.0-11.0) Red Blood Count 4.08 x10^6/uL (4.30-5.70) Hemoglobin 7.8 g/dL (13.0-17.5) Hematocrit 26.0 % (39.0-53.0) Mean Corpuscular Volume 64 fL (79-100) Mean Corpuscular Hemoglobin 19 pg (25-35) Mean Corpuscular Hemoglobin Concent 30 g/dL (31-37) Red Cell Distribution Width 24.0 % (11.5-14.5) Platelet Count 227 x10^3/uL (140-400) Neutrophils (%) (Auto) 42 % (31-73) Lymphocytes (%) (Auto) 47 % (24-48) Monocytes (%) (Auto) 10 % (0-9) Eosinophils (%) (Auto) 1 % (0-3) Basophils (%) (Auto) 1 % (0-3) Neutrophils # (Auto) 2.2 x10^3uL (1.8-7.7) Lymphocytes # (Auto) 2.5 x10^3/uL (1.0-4.8) Monocytes # (Auto) 0.6 x10^3/uL (0.0-1.1) Eosinophils # (Auto) 0.0 x10^3/uL (0.0-0.7) Basophils # (Auto) 0.0 x10^3/uL (0.0-0.2) Segmented Neutrophils % 58 % (35-66) Lymphocytes % 27 % (24-48) Monocytes % 12 % (0-10) Eosinophils % 3 % (0-5) Platelet Estimate Adequate (ADEQUATE) Large Platelets Present Hypochromasia Marked Poikilocytosis Present Anisocytosis Mod Microcytosis Marked Ovalocytes Present Schistocytes Occ Sodium Level 144 mmol/L (136-145) Potassium Level 4.2 mmol/L (3.5-5.1) Chloride Level 108 mmol/L (98-107) Carbon Dioxide Level 30 mmol/L (21-32) Anion Gap 6 (6-14) Blood Urea Nitrogen 23 mg/dL (8-26) Creatinine 1.5 mg/dL (0.7-1.3) Estimated GFR (Cockcroft-Gault) 59.7 BUN/Creatinine Ratio 15 (6-20) Glucose Level 94 mg/dL (70-99) Calcium Level 8.5 mg/dL (8.5-10.1) Total Bilirubin 0.3 mg/dL (0.2-1.0) Aspartate Amino Transf (AST/SGOT) 32 U/L (15-37) Alanine Aminotransferase (ALT/SGPT) 54 U/L (16-63) Alkaline Phosphatase 74 U/L (46-116) Total Protein 6.2 g/dL (6.4-8.2) Albumin 2.7 g/dL (3.4-5.0) Albumin/Globulin Ratio 0.8 (1.0-1.7) Review of Systems Review of Systems Denies shortness of breath Denies chest pain Assessment and Plan Assessmemt and Plan Problems Medical Problems: (1) CHF exacerbation Status: Acute (2) Elevated troponin I level Status: Acute Assessment: Acute on chronic systolic heart failure likely 2/2 noncompliance, EF 31% on 2018 Chronic Renal Insufficiency (Cr 1.7 on 02/03) Coronary artery disease. History of stenting at Hypertension Hyperlipidemia COPD. Patient has discontinued smoking. History of cocaine use. Drug screen on this admission is negative. Drug screen earlier this month was positive Plan: Okay to discharge pending Cards input Continue lasix Return to ED with worsening shortness of breath Follow up outpatient, amyloidosis work up outpatient? Continue to monitor labs Continue home meds Comment Review of Relevant I have reviewed the following items coleman (where applicable) has been applied. Labs Laboratory Tests Test 02/05/19 05:48 White Blood Count 5.3 x10^3/uL (4.0-11.0) Red Blood Count 4.08 x10^6/uL (4.30-5.70) Hemoglobin 7.8 g/dL (13.0-17.5) Hematocrit 26.0 % (39.0-53.0) Mean Corpuscular Volume 64 fL (79-100) Mean Corpuscular Hemoglobin 19 pg (25-35) Mean Corpuscular Hemoglobin Concent 30 g/dL (31-37) Red Cell Distribution Width 24.0 % (11.5-14.5) Platelet Count 227 x10^3/uL (140-400) Neutrophils (%) (Auto) 42 % (31-73) Lymphocytes (%) (Auto) 47 % (24-48) Monocytes (%) (Auto) 10 % (0-9) Eosinophils (%) (Auto) 1 % (0-3) Basophils (%) (Auto) 1 % (0-3) Neutrophils # (Auto) 2.2 x10^3uL (1.8-7.7) Lymphocytes # (Auto) 2.5 x10^3/uL (1.0-4.8) Monocytes # (Auto) 0.6 x10^3/uL (0.0-1.1) Eosinophils # (Auto) 0.0 x10^3/uL (0.0-0.7) Basophils # (Auto) 0.0 x10^3/uL (0.0-0.2) Segmented Neutrophils % 58 % (35-66) Lymphocytes % 27 % (24-48) Monocytes % 12 % (0-10) Eosinophils % 3 % (0-5) Platelet Estimate Adequate (ADEQUATE) Large Platelets Present Hypochromasia Marked Poikilocytosis Present Anisocytosis Mod Microcytosis Marked Ovalocytes Present Schistocytes Occ Sodium Level 144 mmol/L (136-145) Potassium Level 4.2 mmol/L (3.5-5.1) Chloride Level 108 mmol/L (98-107) Carbon Dioxide Level 30 mmol/L (21-32) Anion Gap 6 (6-14) Blood Urea Nitrogen 23 mg/dL (8-26) Creatinine 1.5 mg/dL (0.7-1.3) Estimated GFR (Cockcroft-Gault) 59.7 BUN/Creatinine Ratio 15 (6-20) Glucose Level 94 mg/dL (70-99) Calcium Level 8.5 mg/dL (8.5-10.1) Total Bilirubin 0.3 mg/dL (0.2-1.0) Aspartate Amino Transf (AST/SGOT) 32 U/L (15-37) Alanine Aminotransferase (ALT/SGPT) 54 U/L (16-63) Alkaline Phosphatase 74 U/L (46-116) Total Protein 6.2 g/dL (6.4-8.2) Albumin 2.7 g/dL (3.4-5.0) Albumin/Globulin Ratio 0.8 (1.0-1.7) Laboratory Tests Test 02/05/19 05:48 White Blood Count 5.3 x10^3/uL (4.0-11.0) Red Blood Count 4.08 x10^6/uL (4.30-5.70) Hemoglobin 7.8 g/dL (13.0-17.5) Hematocrit 26.0 % (39.0-53.0) Mean Corpuscular Volume 64 fL (79-100) Mean Corpuscular Hemoglobin 19 pg (25-35) Mean Corpuscular Hemoglobin Concent 30 g/dL (31-37) Red Cell Distribution Width 24.0 % (11.5-14.5) Platelet Count 227 x10^3/uL (140-400) Neutrophils (%) (Auto) 42 % (31-73) Lymphocytes (%) (Auto) 47 % (24-48) Monocytes (%) (Auto) 10 % (0-9) Eosinophils (%) (Auto) 1 % (0-3) Basophils (%) (Auto) 1 % (0-3) Neutrophils # (Auto) 2.2 x10^3uL (1.8-7.7) Lymphocytes # (Auto) 2.5 x10^3/uL (1.0-4.8) Monocytes # (Auto) 0.6 x10^3/uL (0.0-1.1) Eosinophils # (Auto) 0.0 x10^3/uL (0.0-0.7) Basophils # (Auto) 0.0 x10^3/uL (0.0-0.2) Segmented Neutrophils % 58 % (35-66) Lymphocytes % 27 % (24-48) Monocytes % 12 % (0-10) Eosinophils % 3 % (0-5) Platelet Estimate Adequate (ADEQUATE) Large Platelets Present Hypochromasia Marked Poikilocytosis Present Anisocytosis Mod Microcytosis Marked Ovalocytes Present Schistocytes Occ Sodium Level 144 mmol/L (136-145) Potassium Level 4.2 mmol/L (3.5-5.1) Chloride Level 108 mmol/L (98-107) Carbon Dioxide Level 30 mmol/L (21-32) Anion Gap 6 (6-14) Blood Urea Nitrogen 23 mg/dL (8-26) Creatinine 1.5 mg/dL (0.7-1.3) Estimated GFR (Cockcroft-Gault) 59.7 BUN/Creatinine Ratio 15 (6-20) Glucose Level 94 mg/dL (70-99) Calcium Level 8.5 mg/dL (8.5-10.1) Total Bilirubin 0.3 mg/dL (0.2-1.0) Aspartate Amino Transf (AST/SGOT) 32 U/L (15-37) Alanine Aminotransferase (ALT/SGPT) 54 U/L (16-63) Alkaline Phosphatase 74 U/L (46-116) Total Protein 6.2 g/dL (6.4-8.2) Albumin 2.7 g/dL (3.4-5.0) Albumin/Globulin Ratio 0.8 (1.0-1.7) Medications Current Medications Nitroglycerin (Nitro-Bid Oint) 1 inch 1X ONCE TP Last administered on at 05:58; Start 02/02/19 at 06:00; Stop 02/02/19 at 06:01; Status DC Furosemide (Lasix) 40 mg 1X ONCE IVP Last administered on 02/02/19at 05:58; Start 02/02/19 at 06:00; Stop 02/02/19 at 06:01; Status DC Albuterol/ Ipratropium (Duoneb) 3 ml 1X ONCE NEB Last administered on at 06:15; Start 02/02/19 at 06:15; Stop 02/02/19 at 06:16; Status DC Aspirin (Children'S Aspirin) 324 mg 1X ONCE PO Last administered on 02/02/19at 06:34; Start 02/02/19 at 06:30; Stop 02/02/19 at 06:31; Status DC Ondansetron HCl (Zofran) 4 mg PRN Q8HRS PRN IV NAUSEA/VOMITING Last administered on 02/02/19at 07:02; Start 02/02/19 at 07:00; Stop 02/03/19 at 06:59 ; Status DC Morphine Sulfate (Morphine Sulfate) 2 mg PRN Q2HR PRN IV PAIN Last administered on 02/02/19at 07:04; Start 02/02/19 at 07:00; Stop 02/03/19 at 06:59 ; Status DC Acetaminophen (Tylenol) 650 mg PRN Q4HRS PRN PO FEVER Last administered on 02/02at 09:40; Start 02/02/19 at 07:00; Stop 02/03/19 at 06:59; Status DC Nitroglycerin (Nitrostat) 0.4 mg PRN Q5MIN PRN SL CHEST PAIN; Start 02/02/19 at 07:00; Stop 02/03/19 at 06:59; Status DC Albuterol/ Ipratropium (Duoneb) 3 ml RTQID NEB Last administered on 02/02/19at 18:57; Start 02/02/19 at 08:00; Stop 02/03/19 at 07:59; Status DC Amlodipine Besylate (Norvasc) 10 mg BID PO Last administered on 02/05/19at 09:26 ; Start 02/02/19 at 21:00 Atorvastatin Calcium (Lipitor) 20 mg DAILY PO ; Start 02/02/19 at 10:00; Stop at 10:47; Status DC Carvedilol (Coreg) 25 mg BIDWMEALS PO Last administered on 02/05/19 09:26; Start 02/02/19 at 17:00 Clopidogrel Bisulfate (Plavix) 75 mg DAILY PO Last administered on 02/05/19 09 :26; Start 02/02/19 at 10:00 Fluticasone Propionate (Flonase) 2 spray DAILY NS Last administered on 09:38; Start 02/03/19 at 09:00 Furosemide (Lasix) 40 mg DAILY PO ; Start 02/03/19 at 09:00; Stop 02/03/19 at 09 :00; Status DC Acetaminophen/ Hydrocodone Bitart (Lortab 5/325) 1 tab PRN Q6HRS PRN PO PAIN Last administered on 02/04/19 19:47; Start 02/02/19 at 10:00 Isosorbide Mononitrate (Imdur) 60 mg DAILY PO Last administered on 02/05/19 09 :25; Start 02/02/19 at 10:00 Non-Formulary Medication (Albuterol Sulfate (Ventolin Hfa Inhaler)) 2 puff Q4HRS INH ; Start 02/02/19 at 12:00; Status UNV Hydralazine HCl (Apresoline) 100 mg TID PO Last administered on 02/05/19 09:25 ; Start 02/02/19 at 14:00 Non-Formulary Medication (Methylprednisolone (Medrol)) 1 pkg UD PO ; Start 02/02 at 10:00; Status UNV Pantoprazole Sodium (Protonix) 40 mg BIDAC PO Last administered on 02/05/19 09 :26; Start 02/02/19 at 16:30 Atorvastatin Calcium (Lipitor) 20 mg QHS PO Last administered on 02/04/19 21: 07; Start 02/02/19 at 21:00 Carvedilol (Coreg) 25 mg 1X ONCE PO Last administered on 02/02/19 11:06; Start 02/02/19 at 11:00; Stop 02/02/19 at 11:01; Status DC Furosemide (Lasix) 40 mg DAILY IVP Last administered on 02/05/19 09:26; Start 02/02/19 at 11:45 Potassium Chloride (Klor-Con) 40 meq 1X ONCE PO Last administered on at 12:45; Start 02/02/19 at 11:45; Stop 02/02/19 at 11:48; Status DC Active Scripts Active Medrol (Methylprednisolone) 4 Mg Tab.ds.pk 1 Pkg PO UD Hydrocodone-Acetamin 5-325 mg (Hydrocodone/Acetaminophen) 1 Each Tablet 1 Each PO PRN Q6HRS PRN 6 Days [Pantoprazole] 40 MG Tablet.dr 40 Mg PO BIDAC Ventolin Hfa Inhaler (Albuterol Sulfate) 18 Gm Hfa.aer.ad 2 Puff INH Q4HRS 20 Days Furosemide 40 Mg Tablet 40 Mg PO DAILY 30 Days Carvedilol (Carvedilol) 12.5 Mg Tablet 25 Mg PO BIDWMEALS 30 Days Isosorbide Mononitrate Er (Isosorbide Mononitrate) 30 Mg Tab.er.24h 60 Mg PO DAILY 30 Days Hydralazine Hcl 50 Mg Tablet 100 Mg PO TID 30 Days Lipitor (Atorvastatin Calcium) 20 Mg Tablet 1 Tab PO DAILY Fluticasone Propionate Nasal [place] (Fluticasone Propionate) 1 [place] 2 [place] NS DAILY Reported Clopidogrel (Clopidogrel Bisulfate) 75 Mg Tablet 1 Tab PO DAILY Amlodipine Besylate 10 Mg Tablet 10 Mg PO BID Vitals/I & O Vital Sign - Last 24 Hours 02/04/19 02/04/19 02/04/19 02/04/19 11:14 14:15 14:58 16:47 Temp 97.9 97.8 97.9 97.8 Pulse 67 67 76 76 Resp 18 18 B/P (MAP) 128/69 (88) 128/69 124/82 (96) 124/82 Pulse Ox 97 97 O2 Delivery Room Air Room Air 02/04/19 02/04/19 02/04/19 02/04/19 19:00 19:45 19:47 21:00 Temp 98.4 98.4 Pulse 74 Resp 20 20 20 B/P (MAP) 130/86 (101) Pulse Ox 74 97 O2 Delivery Room Air Room Air Room Air 02/04/19 02/04/19 02/04/19 02/04/19 21:00 21:08 21:09 23:00 Temp 98.8 98.8 Pulse 70 70 70 71 Resp 20 B/P (MAP) 118/75 (89) 118/75 118/75 123/83 (96) Pulse Ox 99 O2 Delivery Room Air 02/05/19 02/05/19 02/05/19 02/05/19 03:00 07:00 08:00 09:25 Temp 98.6 98.0 98.6 98.0 Pulse 74 81 81 Resp 20 18 B/P (MAP) 120/77 (91) 133/80 (97) 133/80 Pulse Ox 96 94 O2 Delivery Room Air Room Air Room Air 02/05/19 02/05/19 02/05/19 09:25 09:26 09:26 Pulse 81 81 81 B/P (MAP) 133/80 133/80 133/80 Intake and Output 02/04/19 02/04/19 02/05/19 14:59 22:59 06:59 Intake Total 180 ml 530 ml 300 ml Output Total 1300 ml 1050 ml Balance -1120 ml -520 ml 300 ml KARLY MITCHELL III DO Feb 05, 2019 10:57
--- NOTE | 2019-02-05 12:45 | NUR ---
DISCHARGE INSTRUCTIONS GIVEN, QUESTIONS AND CONCERNS ANSWERED, PATIENT VERBALIZED UNDERSTANDING OF DISCHARGE INFORMATION INCLUDING TAKING ALL MEDICATIONS INSTRUCTED AND FOLLOWING UP WITH HIS PRIMARY PROVIDER AND OTHER CONSULTS INSTRUCTED, SALINE LOCK REMOVED PRIOR TO PATIENT BEING DISCHARGED, ALL PERSONAL BELONGINGS GATHERED BY THE PATIENT AND PLACED IN BAGS FOR DISCHARGE, PRESCRIPTIONS GIVEN TO PATIENT FOR HOME MEDICATIONS.
--- NOTE | 2019-02-05 13:00 | NUR ---
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
--- NOTE | 2019-02-05 20:17 | DS ---
DATE OF DISCHARGE: 02/05/2019 ADMISSION DIAGNOSIS: Congestive heart failure. DISCHARGE DIAGNOSES: Resolving congestive heart failure ([id number] systolic and diastolic heart failure), previous history of drug abuse (he states he quit doing cocaine now), chronic obstructive pulmonary disease (he quit smoking a year ago), chronic kidney disease, noncompliance. HOSPITAL COURSE: The patient is a pleasant 53-year-old male who presented with CHF. He is well known to our service. We admit him quite often. He is noncompliant with his meds, in fact he did not get his meds filled we just discharged him a few days prior to this admission. We admitted the patient, did cardiac enzymes, cardiac monitoring. Consulted Cardiology and diuresed him. Basically, he is back to his baseline. I examined him this morning. His heart tones were normal. His lungs were clear, but diminished. We plan to discharge with close outpatient followup. DISPOSITION: Home. ACTIVITY: As tolerated. DIET: Low sodium. MEDICATIONS: Please see the MRAD. TOTAL TIME: 35 minutes. KARLY MITCHELL DO DR: LORRIE/kathryn JOB#: [id number] / [id number]
== END 2019-02-05 13:00 | disposition home or self-care (01) | DRG 291 ==
LOC: ER 05:40 → 2 SOUTH 07:06
PROVIDERS: ADMIT Internal Medicine; ATTEND Internal Medicine
DX: I13.0 Hypertensive heart and chronic kidney disease with heart failure and stage 1 through stage 4 chronic kidney disease, or unspecified chronic kidney disease (principal); I50.43 Acute on chronic combined systolic (congestive) and diastolic (congestive) heart failure; J44.1 Chronic obstructive pulmonary disease with (acute) exacerbation; D50.9 Iron deficiency anemia, unspecified; E78.00 Pure hypercholesterolemia, unspecified; E78.5 Hyperlipidemia, unspecified; F17.200 Nicotine dependence, unspecified, uncomplicated; G47.33 Obstructive sleep apnea (adult) (pediatric); F14.10 Cocaine abuse, uncomplicated; I25.10 Atherosclerotic heart disease of native coronary artery without angina pectoris; M19.90 Unspecified osteoarthritis, unspecified site; I27.20 Pulmonary hypertension, unspecified; I34.0 Nonrheumatic mitral (valve) insufficiency; N18.9 Chronic kidney disease, unspecified; Z82.49 Family history of ischemic heart disease and other diseases of the circulatory system; Z86.73 Personal history of transient ischemic attack (TIA), and cerebral infarction without residual deficits; Z91.14 Patient's other noncompliance with medication regimen; Z91.19 Patient's noncompliance with other medical treatment and regimen; Z95.5 Presence of coronary angioplasty implant and graft; Z87.11 Personal history of peptic ulcer disease; Z88.8 Allergy status to other drugs, medicaments and biological substances
CPT/HCPCS: 36415; 71045; 80053; 80307; 83735; 83880; 84484; 85007; 85025; 85610; 93005; 94640; 94760; 96374; 96375; J1940; J2270; J2405; J7620; 97110; 97116; 97530; 97535; 99285-25

== ENCOUNTER 2019-04-05 06:08 | Inpatient (IN) | payer SELFPAY ==
[~2019-04-05] VITALS: Ht 180.3 cm; Wt 98.1 kg
--- NOTE | 2019-04-05 06:46 | PHYS DOC ---
Past Medical History Past Medical History: Angina, Asthma, CHF, COPD, CVA, High Cholesterol, Hypertension, [place], Renal Disease Additional Past Medical Histor: MURMUR, CATH WITH STENT, ULCER, SLEEP APNEA Past Surgical History: No Surgical History Additional Past Surgical Histo: cardiac cath with stent placement Smoking: Cigarettes Alcohol Use: None Drug Use: None Adult General Chief Complaint Chief Complaint: CHEST PAIN HPI HPI Patient is a 53 year old male who presents with progressive chest pain and shortness of breath that began two days ago. The pain is a described as a pressure that he localizes predominantly to the left anterior chest but is also felt as a band-like sensation around the chest. He rates the pain at 8/10 and states that it becomes sharp with movement and deep inspiration. The pain also has some radiation to the back. Only alleviating factor for the pain is rest. He states that he has been taking his CHF medications as prescribed and has not had any increased salt intake. He was recently seen at a physical exam and was told he was dehydrated. He uses 2 L of O2 at home as needed. He denies recent illness, increased cough or sputum production, hemoptysis, nausea, vomiting, or diaphoresis. Review of Systems Review of Systems Constitutional: Denies fever or chills HENT: Denies nasal congestion or sore throat Respiratory: Reports shortness of breath and dyspnea. Denies increased cough or sputum production. Cardiovascular: Reports chest pressure and palpitations GI: Denies abdominal pain, nausea, or vomiting : Denies dysuria or hematuria Neurologic: Denies headache, focal weakness or sensory changes Complete systems were reviewed and found to be within normal limits, except as documented in this note. Current Medications Current Medications Current Medications Medications (Trade) Dose Ordered Sig/Deepa Start Time Stop Time Status Last Admin Dose Admin Albuterol/ Ipratropium (Duoneb) 3 ml 1X ONCE 04/05/19 07:00 04/05/19 07:01 DC 04/05/19 06:43 3 ML Aspirin (Nilson Aspirin) 325 mg 1X ONCE 04/05/19 07:00 04/05/19 07:01 DC 04/05/19 06:36 325 MG Dexamethasone Sodium Phosphate (Decadron) 10 mg 1X ONCE 04/05/19 07:00 04/05/19 07:01 DC 04/05/19 06:36 10 MG Fentanyl Citrate (Fentanyl 2ml Vial) 50 mcg 1X ONCE 04/05/19 07:00 04/05/19 07:01 DC 04/05/19 06:36 50 MCG Sodium Chloride 500 ml @ 500 mls/hr 1X ONCE 04/05/19 07:00 04/05/19 07:59 DC 04/05/19 06:35 500 MLS/HR Allergies Allergies Allergies Coded Allergies Type Severity Reaction Last Updated Verified lisinopril Allergy Severe Swelling 08/09/18 Yes Physical Exam Physical Exam Constitutional: Well developed male in mild respiratory distress HENT: Normocephalic, atraumatic, oropharynx dry Eyes: EOMI, conjunctiva normal, no discharge Cardiovascular: Heart rate normal, regular rhythm Lungs & Thorax: Breath sounds diminished bilaterally. Mild inspiratory wheezes. No rales. Abdomen: Soft, no tenderness Skin: Warm, dry, no erythema, no rash Extremities: Radial pulses +2 b/l. No edema noted Neurologic: Alert and oriented, normal motor function, normal sensory function, no focal deficits noted Psychologic: Affect normal, judgement normal, mood normal Current Patient Data Vital Signs Vital Signs Date Time Temp Pulse Resp B/P (MAP) Pulse Ox O2 Delivery O2 Flow Rate FiO2 04/05/19 07:30 84 20 167/122 (137) 99 Nasal Cannula 2.0 04/05/19 06:10 97.7 97.7 Lab Values Laboratory Tests Test 04/05/19 06:17 White Blood Count 6.9 x10^3/uL (4.0-11.0) Red Blood Count 4.92 x10^6/uL (4.30-5.70) Hemoglobin 9.1 g/dL (13.0-17.5) L Hematocrit 30.6 % (39.0-53.0) L Mean Corpuscular Volume 62 fL (79-100) L Mean Corpuscular Hemoglobin 19 pg (25-35) L Mean Corpuscular Hemoglobin Concent 30 g/dL (31-37) L Red Cell Distribution Width 23.0 % (11.5-14.5) H Platelet Count 242 x10^3/uL (140-400) Neutrophils (%) (Auto) 57 % (31-73) Lymphocytes (%) (Auto) 30 % (24-48) Monocytes (%) (Auto) 11 % (0-9) H Eosinophils (%) (Auto) 1 % (0-3) Basophils (%) (Auto) 1 % (0-3) Neutrophils # (Auto) 4.0 x10^3uL (1.8-7.7) Lymphocytes # (Auto) 2.1 x10^3/uL (1.0-4.8) Monocytes # (Auto) 0.8 x10^3/uL (0.0-1.1) Eosinophils # (Auto) 0.1 x10^3/uL (0.0-0.7) Basophils # (Auto) 0.0 x10^3/uL (0.0-0.2) Platelet Estimate Adequate (ADEQUATE) Polychromasia Present Hypochromasia Present Anisocytosis Present Microcytosis Present Macrocytosis Present Ovalocytes Present Prothrombin Time 13.6 SEC (11.7-14.0) Prothrombin Time INR 1.1 (0.8-1.1) PTT 30 SEC (24-38) D-Dimer (Thelma) 0.42 ug/mlFEU (0.00-0.50) Sodium Level 142 mmol/L (136-145) Potassium Level 4.1 mmol/L (3.5-5.1) Chloride Level 107 mmol/L (98-107) Carbon Dioxide Level 26 mmol/L (21-32) Anion Gap 9 (6-14) Blood Urea Nitrogen 31 mg/dL (8-26) H Creatinine 2.1 mg/dL (0.7-1.3) H Estimated GFR (Cockcroft-Gault) 40.5 BUN/Creatinine Ratio 15 (6-20) Glucose Level 106 mg/dL (70-99) H Calcium Level 9.3 mg/dL (8.5-10.1) Magnesium Level 2.0 mg/dL (1.8-2.4) Total Bilirubin 0.7 mg/dL (0.2-1.0) Aspartate Amino Transferase (AST) 41 U/L (15-37) H Alanine Aminotransferase (ALT) 36 U/L (16-63) Alkaline Phosphatase 75 U/L (46-116) Creatine Kinase 481 U/L (39-308) H Creatine Kinase MB (Mass) 5.3 ng/mL (0.0-3.6) H Creatine Kinase MB Relative Index 1.1 % (0-4) Troponin I Quantitative 0.231 ng/mL (0.000-0.055) AA-Kiv-L-Type Natriuretic Peptide 3219 pg/mL (0-124) H Total Protein 6.8 g/dL (6.4-8.2) Albumin 3.1 g/dL (3.4-5.0) L Albumin/Globulin Ratio 0.8 (1.0-1.7) L Lipase 224 U/L (73-393) Laboratory Tests 04/05/19 06:17 Laboratory Tests 04/05/19 06:17 EKG EKG @0615: Sinus rhythm with rate of 88. No ST segment elevation or depression. No T wave inversion.[] Radiology/Procedures Radiology/Procedures PROCEDURE: CHEST PA & LATERAL Single view of the chest. 04/05/2019 7:03 AM Indication: Chest pain Comparison: Chest radiograph February 02, 2019 Findings: Persistent cardiomegaly and central vascular congestion noted. Mild bilateral interstitial thickening is again seen, similar to prior study. No pneumothorax. No significant pleural effusion is identified. Linear opacities in the right midlung may represent scarring or minimal edema. Bony thorax is grossly intact. IMPRESSION: Similar appearance of the chest including cardiomegaly and central vascular congestion. Possible mild interstitial edema. Electronically signed by: Jay Byrd MD (04/05/2019 7:31 AM) [facility][] Course & Med Decision Making Course & Med Decision Making Pertinent Labs and Imaging studies reviewed. (See chart for details) Patient is a 53 year old male with past medical history of CHF, COPD and CKD that presents with 2 days of chest pressure and shortness of breath. Troponin elevated at 0.231 however his baseline seems to be around 0.200. Last troponin was in January at 0.172. Patient given aspirin in ED. Will continue to trend troponin and consult cardiology. EKG showed no ischemic changes and appears similar to previous studies. Chest x-ray showed no change from February 02 film and revealed no acute process. BNP 3219 which appears about baseline. Creatinine mildly elevated from baseline at 2.1 today. CBC revealed microcytic anemia with hgb of 9.1. Coags and d-dimer negative. Patient was given breathing treatment and steroids in ED with some improvement of his respiratory status however he still expresses concerns regarding chest tightness. Pain was addressed with slight improvement. Heart score of 6, however as stated, his troponin seems to be chronically elevated due to his renal disease. Patient requiring admission for further evaluation and treatment. Discussed with Dr. Hernandez (hospitalist) who is in agreement with admission. Discussed findings and plan with patient and family, who acknowledge understanding and agreement. [] Dragon Disclaimer Dragon Disclaimer This electronic medical record was generated, in whole or in part, using a voice recognition dictation system. Departure Departure Impression: Primary Impression: Chest pain Additional Impressions: Elevated troponin COPD with acute exacerbation Shortness of breath Disposition: ADMITTED INPATIENT Admitting Physician: Andreas Hernandez Condition: GUARDED Referrals: NO PCP (PCP) The HEART Score for CP Pts HEART Score for Chest Pain: HEART Score for Chest Pain Response (Comments) Value History Moderately Suspicious 1 ECG Normal 0 Age >45 - < 65 1 Risk Factors >3 Risk Factors or Hx CAD 2 Troponin >3 x Normal Limit 2 Total 6 Risk Factors: Risk Factors: DM, Current or recent (<one month) smoker, HTN, HLP, family history of CAD, obesity. Risk Scores: Score 0 - 3: 2.5% MACE over next 6 weeks - Discharge Home Score 4 - 6: 20.3% MACE over next 6 weeks - Admit for Clinical Observation Score 7 - 10: 72.7% MACE over next 6 weeks - Early Invasive Strategies Problem Qualifiers Primary Impression: Chest pain Chest pain type: unspecified Qualified Codes: R07.9 - Chest pain, unspecified TONNY JACOBO DO April 05, 2019 06:45
[2019-04-05 06:47] LABS: CALCIUM 9.3 mg/dL (8.5-10.1); CREATININE 2.1 mg/dL (0.7-1.3); GFR 40.5; POTASSIUM 4.1 mmol/L (3.5-5.1)
[2019-04-05 06:52] LABS: BASO % 1 % (0-3); EOS # 0.1 x10^3/uL (0.0-0.7); EOS % 1 % (0-3); HEMATOCRIT 30.6 % (39.0-53.0); HEMOGLOBIN 9.1 g/dL (13.0-17.5); LYMPH # 2.1 x10^3/uL (1.0-4.8); LYMPH % 30 % (24-48); MEAN CORPUSCULAR HEMOGLOBIN 19 pg (25-35); MEAN CORPUSCULAR HGB CONC 30 g/dL (31-37); MEAN CORPUSCULAR VOLUME 62 fL (79-100); MONO # 0.8 x10^3/uL (0.0-1.1); MONO % 11 % (0-9); NEUT % 57 % (31-73); PLATELET COUNT 242 x10^3/uL (140-400); RED BLOOD COUNT 4.92 x10^6/uL (4.30-5.70); WHITE BLOOD COUNT 6.9 x10^3/uL (4.0-11.0)
[2019-04-05 06:53] LABS: ALBUMIN 3.1 g/dL (3.4-5.0); ALBUMIN/GLOBULIN RATIO 0.8 (1.0-1.7); TOTAL BILIRUBIN 0.7 mg/dL (0.2-1.0); TOTAL PROTEIN 6.8 g/dL (6.4-8.2)
[2019-04-05] MEDS ORDERED: IPRATRPIUM/ALBUTEROL 0.5/2.5MG 3 ML NEBU. NEB ONE (07:00)
[2019-04-05] MEDS ORDERED: IV NORMAL SALINE 500ML BAG 500 ML IV ONE (07:00)
[2019-04-05] MEDS ORDERED: fentaNYL PF VIAL 100 MCG/2 ML VIAL IV ONE (07:00)
[2019-04-05] MEDS ORDERED: DEXAMETHASONE SOD PHOS 20 MG/5 ML VIAL. IV ONE (07:00)
[2019-04-05] MEDS ORDERED: ASPIRIN 325 MG TABLET PO ONE (07:00)
[2019-04-05 07:11] LABS: PROTHROMBIN TIME PATIENT 13.6 SEC (11.7-14.0)
--- NOTE | 2019-04-05 07:34 | RAD ---
Single view of the chest. 04/05/2019 7:03 AM Indication: Chest pain Comparison: Chest radiograph February 02, 2019 Findings: Persistent cardiomegaly and central vascular congestion noted. Mild bilateral interstitial thickening is again seen, similar to prior study. No pneumothorax. No significant pleural effusion is identified. Linear opacities in the right midlung may represent scarring or minimal edema. Bony thorax is grossly intact. IMPRESSION: Similar appearance of the chest including cardiomegaly and central vascular congestion. Possible mild interstitial edema. Electronically signed by: Jay Byrd MD (04/05/2019 7:31 AM) [id number]
[2019-04-05] MEDS ORDERED: ONDANSETRON PF 4 MG/2 ML VIAL. IV PRN (07:45)
[2019-04-05 07:50] LABS: PLT ESTIMATE ADEQUATE (ADEQUATE)
[2019-04-05 07:51] LABS: ANISOCYTOSIS PRESENT; HYPOCHROMIA PRESENT; MICROCYTOSIS PRESENT; OVALOCYTES PRESENT; POLYCHROMASIA PRESENT
--- NOTE | 2019-04-05 07:53 | EKG ---
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
[2019-04-05 08:05] VITALS: BP 179/127
--- NOTE | 2019-04-05 10:00 | PDOC1 ---
History and Physical Date of Admission Date of Admission DATE: 04/05/19 TIME: 10:00 Identification/Chief Complaint Chief Complaint seen in ER , chest pain and shortness of breath that began two days ago. The pain is a described as a pressure that he localizes predominantly to the left anterior chest but is also felt as a band-like sensation around the chest. He rates the pain at 8/10 and states that it becomes sharp with movement and deep inspiration. The pain also has some radiation to the back. Only alleviating factor for the pain is rest. cocaine pos in urine Past Medical History Past Medical History Past Medical History Past Medical History: Angina, Asthma, CHF, COPD, CVA, High Cholesterol, Hypertension, NV, Renal Disease Additional Past Medical Histor: MURMUR, CATH WITH STENT, ULCER, SLEEP APNEA Past Surgical History: No Surgical History Additional Past Surgical Histo: cardiac cath with stent placement Smoking: Cigarettes Alcohol Use: None Drug Use: None family hx copd, hyperlipidemia Cardiovascular: CAD, CHF, HTN, Hyperlipidemia, Other Pulmonary: Asthma, COPD CENTRAL NERVOUS SYSTEM: Other GI: No pertinent hx Heme/Onc: No pertinent hx Hepatobiliary: No pertinent hx Psych: No pertinent hx Musculoskeletal: Osteoarthritis Rheumatologic: No pertinent hx Infectious disease: No pertinent hx Renal/: Chronic renal insuff Endocrine: No pertinent hx Dermatology: No pertinent hx Past Surgical History Past Surgical History: Tonsillectomy, Other Family History Family History: High Cholestrol, Hypertension Social History Smoke: 1 pack per day ALCOHOL: none Drugs: None, Cocaine, Other Current Problem List Problem List Problems Medical Problems: (1) Elevated troponin Status: Acute Current Medications Current Medications Current Medications Aspirin (Nilson Aspirin) 325 mg 1X ONCE PO Last administered on 04/05/19at 06:36; Start 04/05/19 at 07:00; Stop 04/05/19 at 07:01; Status DC Dexamethasone Sodium Phosphate (Decadron) 10 mg 1X ONCE IV Last administered on 04/05/19at 06:36; Start 04/05/19 at 07:00; Stop 04/05/19 at 07:01; Status DC Albuterol/ Ipratropium (Duoneb) 3 ml 1X ONCE NEB Last administered on 04/05/19at 06:43; Start 04/05/19 at 07:00; Stop 04/05/19 at 07:01; Status DC Fentanyl Citrate (Fentanyl 2ml Vial) 50 mcg 1X ONCE IV Last administered on 04/05/19at 06:36; Start 04/05/19 at 07:00; Stop 04/05/19 at 07:01; Status DC Sodium Chloride 500 ml @ 500 mls/hr 1X ONCE IV Last administered on 04/05/19at 06:35; Start 04/05/19 at 07:00; Stop 04/05/19 at 07:59; Status DC Ondansetron HCl (Zofran) 4 mg PRN Q8HRS PRN IV NAUSEA/VOMITING; Start 04/05/19 at 07:45; Stop 04/06/19 at 07:44 Fentanyl Citrate (Fentanyl 2ml Vial) 50 mcg PRN Q2HRS PRN IV PAIN; Start 04/05/19 at 07:45; Stop 04/06/19 at 07:44 Albuterol/ Ipratropium (Duoneb) 3 ml RTQID NEB ; Start 04/05/19 at 08:00; Stop 04/06/19 at 07:59 Active Scripts Active Hydrocodone-Acetamin 5-325 mg (Hydrocodone/Acetaminophen) 1 Each Tablet 1 Each PO PRN Q6HRS PRN 6 Days [Pantoprazole] 40 MG Tablet.dr 40 Mg PO BIDAC Ventolin Hfa Inhaler (Albuterol Sulfate) 18 Gm Hfa.aer.ad 2 Puff INH Q4HRS 20 Days Furosemide 40 Mg Tablet 40 Mg PO DAILY 30 Days Carvedilol (Carvedilol) 12.5 Mg Tablet 25 Mg PO BIDWMEALS 30 Days Isosorbide Mononitrate Er (Isosorbide Mononitrate) 30 Mg Tab.er.24h 60 Mg PO DAILY 30 Days Hydralazine Hcl 50 Mg Tablet 100 Mg PO TID 30 Days Lipitor (Atorvastatin Calcium) 20 Mg Tablet 1 Tab PO DAILY Fluticasone Propionate Nasal Michael (Fluticasone Propionate) 1 Michael Michael 2 Michael NS DAILY Reported Clopidogrel (Clopidogrel Bisulfate) 75 Mg Tablet 1 Tab PO DAILY Amlodipine Besylate 10 Mg Tablet 10 Mg PO BID Allergies Allergies: Coded Allergies: lisinopril (Verified Allergy, Severe, Swelling, 08/09/18) caused throat swelling ROS Review of System Review of Systems Review of Systems Constitutional: Denies fever or chills HENT: Denies nasal congestion or sore throat Respiratory: Reports shortness of breath and dyspnea. Denies increased cough or sputum production. Cardiovascular: Reports chest pressure and palpitations GI: Denies abdominal pain, nausea, or vomiting : Denies dysuria or hematuria Neurologic: Denies headache, focal weakness or sensory changes 14 PT systems were reviewed and found to be within normal limits, except as documented Physical Exam Physical Exam Physical Exam Physical Exam Constitutional: Well developed male in mild respiratory distress HENT: Normocephalic, atraumatic, oropharynx dry Eyes: EOMI, conjunctiva normal, no discharge Cardiovascular: Heart rate normal, regular rhythm Lungs & Thorax: Breath sounds diminished bilaterally. Mild inspiratory wheezes. No rales. Abdomen: Soft, no tenderness Skin: Warm, dry, no erythema, no rash Extremities: Radial pulses +2 b/l. No edema noted Neurologic: Alert and oriented, normal motor function, normal sensory function, no focal deficits noted Psychologic: Affect normal, judgement POOR , mood normal General: Alert, Oriented X3, Cooperative HEENT: Atraumatic, PERRLA Heart: RRR Breasts: Not examined Rectal Exam: not examined Extremities: No cyanosis Skin: No breakdown Neuro: Normal speech, Cranial nerves 3-12 NL Vitals Vitals Vital Signs Date Time Temp Pulse Resp B/P (MAP) Pulse Ox O2 Delivery O2 Flow Rate FiO2 04/05/19 08:42 Room Air 04/05/19 08:05 97.5 91 18 179/127 (144) 95 97.5 04/05/19 07:30 2.0 Labs Labs Laboratory Tests Test 04/05/19 06:17 White Blood Count 6.9 x10^3/uL (4.0-11.0) Red Blood Count 4.92 x10^6/uL (4.30-5.70) Hemoglobin 9.1 g/dL (13.0-17.5) Hematocrit 30.6 % (39.0-53.0) Mean Corpuscular Volume 62 fL (79-100) Mean Corpuscular Hemoglobin 19 pg (25-35) Mean Corpuscular Hemoglobin Concent 30 g/dL (31-37) Red Cell Distribution Width 23.0 % (11.5-14.5) Platelet Count 242 x10^3/uL (140-400) Neutrophils (%) (Auto) 57 % (31-73) Lymphocytes (%) (Auto) 30 % (24-48) Monocytes (%) (Auto) 11 % (0-9) Eosinophils (%) (Auto) 1 % (0-3) Basophils (%) (Auto) 1 % (0-3) Neutrophils # (Auto) 4.0 x10^3uL (1.8-7.7) Lymphocytes # (Auto) 2.1 x10^3/uL (1.0-4.8) Monocytes # (Auto) 0.8 x10^3/uL (0.0-1.1) Eosinophils # (Auto) 0.1 x10^3/uL (0.0-0.7) Basophils # (Auto) 0.0 x10^3/uL (0.0-0.2) Platelet Estimate Adequate (ADEQUATE) Polychromasia Present Hypochromasia Present Anisocytosis Present Microcytosis Present Macrocytosis Present Ovalocytes Present Prothrombin Time 13.6 SEC (11.7-14.0) Prothromb Time International Ratio 1.1 (0.8-1.1) Activated Partial Thromboplast Time 30 SEC (24-38) D-Dimer (Thelma) 0.42 ug/mlFEU (0.00-0.50) Sodium Level 142 mmol/L (136-145) Potassium Level 4.1 mmol/L (3.5-5.1) Chloride Level 107 mmol/L (98-107) Carbon Dioxide Level 26 mmol/L (21-32) Anion Gap 9 (6-14) Blood Urea Nitrogen 31 mg/dL (8-26) Creatinine 2.1 mg/dL (0.7-1.3) Estimated GFR (Cockcroft-Gault) 40.5 BUN/Creatinine Ratio 15 (6-20) Glucose Level 106 mg/dL (70-99) Calcium Level 9.3 mg/dL (8.5-10.1) Magnesium Level 2.0 mg/dL (1.8-2.4) Total Bilirubin 0.7 mg/dL (0.2-1.0) Aspartate Amino Transf (AST/SGOT) 41 U/L (15-37) Alanine Aminotransferase (ALT/SGPT) 36 U/L (16-63) Alkaline Phosphatase 75 U/L (46-116) Creatine Kinase 481 U/L (39-308) Creatine Kinase MB (Mass) 5.3 ng/mL (0.0-3.6) Creatine Kinase MB Relative Index 1.1 % (0-4) Troponin I Quantitative 0.231 ng/mL (0.000-0.055) KB-Gwl-H-Type Natriuretic Peptide 3219 pg/mL (0-124) Total Protein 6.8 g/dL (6.4-8.2) Albumin 3.1 g/dL (3.4-5.0) Albumin/Globulin Ratio 0.8 (1.0-1.7) Lipase 224 U/L (73-393) Laboratory Tests Test 04/05/19 06:17 White Blood Count 6.9 x10^3/uL (4.0-11.0) Red Blood Count 4.92 x10^6/uL (4.30-5.70) Hemoglobin 9.1 g/dL (13.0-17.5) Hematocrit 30.6 % (39.0-53.0) Mean Corpuscular Volume 62 fL (79-100) Mean Corpuscular Hemoglobin 19 pg (25-35) Mean Corpuscular Hemoglobin Concent 30 g/dL (31-37) Red Cell Distribution Width 23.0 % (11.5-14.5) Platelet Count 242 x10^3/uL (140-400) Neutrophils (%) (Auto) 57 % (31-73) Lymphocytes (%) (Auto) 30 % (24-48) Monocytes (%) (Auto) 11 % (0-9) Eosinophils (%) (Auto) 1 % (0-3) Basophils (%) (Auto) 1 % (0-3) Neutrophils # (Auto) 4.0 x10^3uL (1.8-7.7) Lymphocytes # (Auto) 2.1 x10^3/uL (1.0-4.8) Monocytes # (Auto) 0.8 x10^3/uL (0.0-1.1) Eosinophils # (Auto) 0.1 x10^3/uL (0.0-0.7) Basophils # (Auto) 0.0 x10^3/uL (0.0-0.2) Platelet Estimate Adequate (ADEQUATE) Polychromasia Present Hypochromasia Present Anisocytosis Present Microcytosis Present Macrocytosis Present Ovalocytes Present Prothrombin Time 13.6 SEC (11.7-14.0) Prothromb Time International Ratio 1.1 (0.8-1.1) Activated Partial Thromboplast Time 30 SEC (24-38) D-Dimer (Thelma) 0.42 ug/mlFEU (0.00-0.50) Sodium Level 142 mmol/L (136-145) Potassium Level 4.1 mmol/L (3.5-5.1) Chloride Level 107 mmol/L (98-107) Carbon Dioxide Level 26 mmol/L (21-32) Anion Gap 9 (6-14) Blood Urea Nitrogen 31 mg/dL (8-26) Creatinine 2.1 mg/dL (0.7-1.3) Estimated GFR (Cockcroft-Gault) 40.5 BUN/Creatinine Ratio 15 (6-20) Glucose Level 106 mg/dL (70-99) Calcium Level 9.3 mg/dL (8.5-10.1) Magnesium Level 2.0 mg/dL (1.8-2.4) Total Bilirubin 0.7 mg/dL (0.2-1.0) Aspartate Amino Transf (AST/SGOT) 41 U/L (15-37) Alanine Aminotransferase (ALT/SGPT) 36 U/L (16-63) Alkaline Phosphatase 75 U/L (46-116) Creatine Kinase 481 U/L (39-308) Creatine Kinase MB (Mass) 5.3 ng/mL (0.0-3.6) Creatine Kinase MB Relative Index 1.1 % (0-4) Troponin I Quantitative 0.231 ng/mL (0.000-0.055) HL-Fdi-K-Type Natriuretic Peptide 3219 pg/mL (0-124) Total Protein 6.8 g/dL (6.4-8.2) Albumin 3.1 g/dL (3.4-5.0) Albumin/Globulin Ratio 0.8 (1.0-1.7) Lipase 224 U/L (73-393) Images Images Single view of the chest. 04/05/2019 7:03 AM Indication: Chest pain Comparison: Chest radiograph February 02, 2019 Findings: Persistent cardiomegaly and central vascular congestion noted. Mild bilateral interstitial thickening is again seen, similar to prior study. No pneumothorax. No significant pleural effusion is identified. Linear opacities in the right midlung may represent scarring or minimal edema. Bony thorax is grossly intact. IMPRESSION: Similar appearance of the chest including cardiomegaly and central vascular congestion. Possible mild interstitial edema. Electronically signed by: Jay Hutson MD (04/05/2019 7:31 AM) [facility] DICTATED and SIGNED BY: JAY HUTSON MD DATE: 04/05/19 0731 VTE Prophylaxis Ordered VTE Prophylaxis Devices: No VTE Pharmacological Prophylaxi: Yes Assessment/Plan Assessment/Plan IMPRESSION: CHEST PAIN cardiomegaly and central vascular congestion. Possible mild interstitial edema. COCAINE ABUSE elevated troponin i mild exac copd PLAN CVC ADMIT SERIAL TROPONIN Card consult pulm consult tobacco abuse disorder dvt prophylaxis NICOLE PERALTA MD April 05, 2019 10:00
[2019-04-05] MEDS: fentaNYL PF VIAL 100 MCG/2 ML VIAL IV PRN ×4 (10:59→23:33)
[2019-04-05 11:00] VITALS: BP 174/120
[2019-04-05] MEDS: CLOPIDOGREL BISULFATE 75 MG TABLET PO SCH (11:58)
[2019-04-05] MEDS: amLODIPine BESYLATE 10 MG TABLET PO SCH ×2 (11:58→21:08)
[2019-04-05] MEDS: ISOSORBIDE MONONITRATE ER 30 MG TAB.ER.24H PO SCH (11:59)
[2019-04-05] MEDS: CARVEDILOL 12.5 MG TABLET. PO SCH ×2 (11:59→16:38)
[2019-04-05] MEDS: IPRATRPIUM/ALBUTEROL 0.5/2.5MG 3 ML NEBU. NEB SCH ×3 (12:03→20:00)
[2019-04-05 15:10] VITALS: BP 147/101
--- NOTE | 2019-04-05 15:20 | NUR ---
SS following for discharge planning. SS reviewed pt chart. Pt is from home with spouse and is currently on room air. No discharge needs noted at this time. SS will continue to follow for discharge planning.
--- NOTE | 2019-04-05 15:45 | PDOC ---
PULMONARY PROGRESS NOTES Vitals Vital Signs Date Time Temp Pulse Resp B/P (MAP) Pulse Ox O2 Delivery O2 Flow Rate FiO2 04/05/19 15:10 98.6 81 18 147/101 (116) 98.6 04/05/19 14:31 Nasal Cannula 1.0 04/05/19 12:05 98 General: Alert, No acute distress Lungs: Clear Cardiovascular: S1 Abdomen: Soft Extremities: No Edema Labs Laboratory Tests Test 04/05/19 06:17 04/05/19 10:33 04/05/19 13:53 White Blood Count 6.9 x10^3/uL (4.0-11.0) Red Blood Count 4.92 x10^6/uL (4.30-5.70) Hemoglobin 9.1 g/dL (13.0-17.5) Hematocrit 30.6 % (39.0-53.0) Mean Corpuscular Volume 62 fL (79-100) Mean Corpuscular Hemoglobin 19 pg (25-35) Mean Corpuscular Hemoglobin Concent 30 g/dL (31-37) Red Cell Distribution Width 23.0 % (11.5-14.5) Platelet Count 242 x10^3/uL (140-400) Neutrophils (%) (Auto) 57 % (31-73) Lymphocytes (%) (Auto) 30 % (24-48) Monocytes (%) (Auto) 11 % (0-9) Eosinophils (%) (Auto) 1 % (0-3) Basophils (%) (Auto) 1 % (0-3) Neutrophils # (Auto) 4.0 x10^3uL (1.8-7.7) Lymphocytes # (Auto) 2.1 x10^3/uL (1.0-4.8) Monocytes # (Auto) 0.8 x10^3/uL (0.0-1.1) Eosinophils # (Auto) 0.1 x10^3/uL (0.0-0.7) Basophils # (Auto) 0.0 x10^3/uL (0.0-0.2) Platelet Estimate Adequate (ADEQUATE) Polychromasia Present Hypochromasia Present Anisocytosis Present Microcytosis Present Macrocytosis Present Ovalocytes Present Prothrombin Time 13.6 SEC (11.7-14.0) Prothromb Time International Ratio 1.1 (0.8-1.1) Activated Partial Thromboplast Time 30 SEC (24-38) D-Dimer (Thelma) 0.42 ug/mlFEU (0.00-0.50) Sodium Level 142 mmol/L (136-145) Potassium Level 4.1 mmol/L (3.5-5.1) Chloride Level 107 mmol/L (98-107) Carbon Dioxide Level 26 mmol/L (21-32) Anion Gap 9 (6-14) Blood Urea Nitrogen 31 mg/dL (8-26) Creatinine 2.1 mg/dL (0.7-1.3) Estimated GFR (Cockcroft-Gault) 40.5 BUN/Creatinine Ratio 15 (6-20) Glucose Level 106 mg/dL (70-99) Calcium Level 9.3 mg/dL (8.5-10.1) Magnesium Level 2.0 mg/dL (1.8-2.4) Total Bilirubin 0.7 mg/dL (0.2-1.0) Aspartate Amino Transf (AST/SGOT) 41 U/L (15-37) Alanine Aminotransferase (ALT/SGPT) 36 U/L (16-63) Alkaline Phosphatase 75 U/L (46-116) Creatine Kinase 481 U/L (39-308) Creatine Kinase MB (Mass) 5.3 ng/mL (0.0-3.6) Creatine Kinase MB Relative Index 1.1 % (0-4) Troponin I Quantitative 0.231 ng/mL (0.000-0.055) 0.194 ng/mL (0.000-0.055) 0.141 ng/mL (0.000-0.055) NW-Fsg-W-Type Natriuretic Peptide 3219 pg/mL (0-124) Total Protein 6.8 g/dL (6.4-8.2) Albumin 3.1 g/dL (3.4-5.0) Albumin/Globulin Ratio 0.8 (1.0-1.7) Lipase 224 U/L (73-393) Laboratory Tests Test 04/05/19 06:17 04/05/19 10:33 04/05/19 13:53 White Blood Count 6.9 x10^3/uL (4.0-11.0) Red Blood Count 4.92 x10^6/uL (4.30-5.70) Hemoglobin 9.1 g/dL (13.0-17.5) Hematocrit 30.6 % (39.0-53.0) Mean Corpuscular Volume 62 fL (79-100) Mean Corpuscular Hemoglobin 19 pg (25-35) Mean Corpuscular Hemoglobin Concent 30 g/dL (31-37) Red Cell Distribution Width 23.0 % (11.5-14.5) Platelet Count 242 x10^3/uL (140-400) Neutrophils (%) (Auto) 57 % (31-73) Lymphocytes (%) (Auto) 30 % (24-48) Monocytes (%) (Auto) 11 % (0-9) Eosinophils (%) (Auto) 1 % (0-3) Basophils (%) (Auto) 1 % (0-3) Neutrophils # (Auto) 4.0 x10^3uL (1.8-7.7) Lymphocytes # (Auto) 2.1 x10^3/uL (1.0-4.8) Monocytes # (Auto) 0.8 x10^3/uL (0.0-1.1) Eosinophils # (Auto) 0.1 x10^3/uL (0.0-0.7) Basophils # (Auto) 0.0 x10^3/uL (0.0-0.2) Platelet Estimate Adequate (ADEQUATE) Polychromasia Present Hypochromasia Present Anisocytosis Present Microcytosis Present Macrocytosis Present Ovalocytes Present Prothrombin Time 13.6 SEC (11.7-14.0) Prothromb Time International Ratio 1.1 (0.8-1.1) Activated Partial Thromboplast Time 30 SEC (24-38) D-Dimer (Thelma) 0.42 ug/mlFEU (0.00-0.50) Sodium Level 142 mmol/L (136-145) Potassium Level 4.1 mmol/L (3.5-5.1) Chloride Level 107 mmol/L (98-107) Carbon Dioxide Level 26 mmol/L (21-32) Anion Gap 9 (6-14) Blood Urea Nitrogen 31 mg/dL (8-26) Creatinine 2.1 mg/dL (0.7-1.3) Estimated GFR (Cockcroft-Gault) 40.5 BUN/Creatinine Ratio 15 (6-20) Glucose Level 106 mg/dL (70-99) Calcium Level 9.3 mg/dL (8.5-10.1) Magnesium Level 2.0 mg/dL (1.8-2.4) Total Bilirubin 0.7 mg/dL (0.2-1.0) Aspartate Amino Transf (AST/SGOT) 41 U/L (15-37) Alanine Aminotransferase (ALT/SGPT) 36 U/L (16-63) Alkaline Phosphatase 75 U/L (46-116) Creatine Kinase 481 U/L (39-308) Creatine Kinase MB (Mass) 5.3 ng/mL (0.0-3.6) Creatine Kinase MB Relative Index 1.1 % (0-4) Troponin I Quantitative 0.231 ng/mL (0.000-0.055) 0.194 ng/mL (0.000-0.055) 0.141 ng/mL (0.000-0.055) JK-Reu-G-Type Natriuretic Peptide 3219 pg/mL (0-124) Total Protein 6.8 g/dL (6.4-8.2) Albumin 3.1 g/dL (3.4-5.0) Albumin/Globulin Ratio 0.8 (1.0-1.7) Lipase 224 U/L (73-393) Medications Active Scripts Medications Dose Route/Sig Max Daily Dose Days Date Category Hydrocodone-Acetamin 5-325 mg (Hydrocodone/Acetaminophen) 1 Each Tablet 1 Each PO PRN Q6HRS PRN 6 01/16/19 Rx Clopidogrel (Clopidogrel Bisulfate) 75 Mg Tablet 1 Tab PO DAILY 12/24/18 Reported [Pantoprazole] 40 MG Tablet.dr 40 Mg PO BIDAC 09/18/18 Rx Amlodipine Besylate 10 Mg Tablet 10 Mg PO BID 09/15/18 Reported Ventolin Hfa Inhaler (Albuterol Sulfate) 18 Gm Hfa.aer.ad 2 Puff INH Q4HRS 20 08/07/18 Rx Furosemide 40 Mg Tablet 40 Mg PO DAILY 30 07/13/18 Rx Carvedilol (Carvedilol) 12.5 Mg Tablet 25 Mg PO BIDWMEALS 30 07/13/18 Rx Isosorbide Mononitrate Er (Isosorbide Mononitrate) 30 Mg Tab.er.24h 60 Mg PO DAILY 30 07/13/18 Rx Hydralazine Hcl 50 Mg Tablet 100 Mg PO TID 30 07/13/18 Rx Lipitor (Atorvastatin Calcium) 20 Mg Tablet 1 Tab PO DAILY 07/04/15 Rx Fluticasone Propionate Nasal [place] (Fluticasone Propionate) 1 [place] 2 [place] NS DAILY 07/04/15 Rx Impression . NOTE DICTATED SUSPECT SOA AND CHEST DISCOMFORT CARDIAC IN NATURE MILD AECOPD WILL ADD STEROIDS THANKS CHAY FELIX MD April 05, 2019 15:45
[2019-04-05] MEDS: methylPREDNISolone SOD SUCC PF 125 MG/2 ML VIAL. IV SCH ×2 (16:39→21:08)
--- NOTE | 2019-04-05 17:24 | PDOC2 ---
CONSULT Date of Consult Date of Consult DATE: 04/05/19 TIME: 17:17 Reason for Consult Reason for Consult: Heart failure, chest pain Referring Physician Referring Physician: Dr. Pulido Identification/Chief Complaint Chief Complaint Chest pain Source Source: Chart review, Patient History of Present Illness Reason for Visit: The patient is a 53-year-old male with a history of cardiomyopathy, coronary artery disease with a stent placed over a year ago at , chronic systolic heart failure and chronic kidney disease. Patient reported to the emergency room with episodes of chest pain and increasing shortness of breath. He states this has been increasing over the last 2 days. He has a history of medical noncompliance but states he has been taking his medications as directed. He also has a history of cocaine use and he states he has stopped this. He continues to smoke. Patient was treated overnight with diuretics and is feeling mildly better. His EKG is unchanged with a sinus rhythm with nonspecific ST-T wave changes. Troponin is minimally elevated 0.231. However his BNP has been elevated 3219. His creatinine today is 2.1 which is above his baseline of 1.5-1.8. A Lexiscan stress test on 01/15/19 shows a large lateral infarct with mild estephanie-infarct reversibility and an ejection fraction of 31%. Echocardiogram from 12/22/18 shows an ejection fraction of 35% with mild aortic insufficiency and moderate mitral regurgitation. Pulmonary artery pressures were greater than 50 mmHg. Chest ray chest x-ray this admission shows cardiomegaly with vascular congestion. Past Medical History Cardiovascular: CAD, CHF, HTN, Hyperlipidemia, Other Pulmonary: Asthma, COPD CENTRAL NERVOUS SYSTEM: Other GI: No pertinent hx Heme/Onc: No pertinent hx Hepatobiliary: No pertinent hx Psych: No pertinent hx Musculoskeletal: Osteoarthritis Rheumatologic: No pertinent hx Infectious disease: No pertinent hx Renal/: Chronic renal insuff Endocrine: No pertinent hx Past Surgical History Past Surgical History: Tonsillectomy, Other (coronary stents at ) Family History Family History: High Cholestrol, Hypertension Social History 1 pack per day ALCOHOL: none Drugs: None, Cocaine, Other Lives: with Family Current Problem List Problem List Problems Medical Problems: (1) Elevated troponin Status: Acute Current Medications Current Medications Current Medications Aspirin (Nilson Aspirin) 325 mg 1X ONCE PO Last administered on 04/05/19at 06:36; Start 04/05/19 at 07:00; Stop 04/05/19 at 07:01; Status DC Dexamethasone Sodium Phosphate (Decadron) 10 mg 1X ONCE IV Last administered on 04/05/19 06:36; Start 04/05/19 at 07:00; Stop 04/05/19 at 07:01; Status DC Albuterol/ Ipratropium (Duoneb) 3 ml 1X ONCE NEB Last administered on 04/05/19 06:43; Start 04/05/19 at 07:00; Stop 04/05/19 at 07:01; Status DC Fentanyl Citrate (Fentanyl 2ml Vial) 50 mcg 1X ONCE IV Last administered on 04/05/19 06:36; Start 04/05/19 at 07:00; Stop 04/05/19 at 07:01; Status DC Sodium Chloride 500 ml @ 500 mls/hr 1X ONCE IV Last administered on 04/05/19 06:35; Start 04/05/19 at 07:00; Stop 04/05/19 at 07:59; Status DC Ondansetron HCl (Zofran) 4 mg PRN Q8HRS PRN IV NAUSEA/VOMITING; Start 04/05/19 at 07:45; Stop 04/06/19 at 07:44 Fentanyl Citrate (Fentanyl 2ml Vial) 50 mcg PRN Q2HRS PRN IV PAIN Last administered on 04/05/19 14:31; Start 04/05/19 at 07:45; Stop 04/06/19 at 07:44 Albuterol/ Ipratropium (Duoneb) 3 ml RTQID NEB Last administered on 04/05/19 16:34; Start 04/05/19 at 08:00; Stop 04/06/19 at 07:59 Amlodipine Besylate (Norvasc) 10 mg BID PO Last administered on 04/05/19 11:58; Start 04/05/19 at 12:00 Carvedilol (Coreg) 25 mg BIDWMEALS PO Last administered on 04/05/19 16:38; Start 04/05/19 at 12:00 Clopidogrel Bisulfate (Plavix) 75 mg DAILY PO Last administered on 04/05/19 11:58; Start 04/05/19 at 12:00 Isosorbide Mononitrate (Imdur) 60 mg DAILY PO Last administered on 5/24/19at 11:59; Start 04/05/19 at 12:00 Hydralazine HCl (Apresoline) 100 mg TID PO Last administered on 04/05/19at 14:05; Start 04/05/19 at 14:00 Methylprednisolone Sodium Succinate (SOLU-Medrol 125MG VIAL) 80 mg Q8HRS IV Last administered on 04/05/19at 16:39; Start 04/05/19 at 15:30 Active Scripts Active Hydrocodone-Acetamin 5-325 mg (Hydrocodone/Acetaminophen) 1 Each Tablet 1 Each PO PRN Q6HRS PRN 6 Days [Pantoprazole] 40 MG Tablet.dr 40 Mg PO BIDAC Ventolin Hfa Inhaler (Albuterol Sulfate) 18 Gm Hfa.aer.ad 2 Puff INH Q4HRS 20 Days Furosemide 40 Mg Tablet 40 Mg PO DAILY 30 Days Carvedilol (Carvedilol) 12.5 Mg Tablet 25 Mg PO BIDWMEALS 30 Days Isosorbide Mononitrate Er (Isosorbide Mononitrate) 30 Mg Tab.er.24h 60 Mg PO DAILY 30 Days Hydralazine Hcl 50 Mg Tablet 100 Mg PO TID 30 Days Lipitor (Atorvastatin Calcium) 20 Mg Tablet 1 Tab PO DAILY Fluticasone Propionate Nasal [place] (Fluticasone Propionate) 1 [place] Dunlevy 2 [place]le[place] NS DAILY Reported Clopidogrel (Clopidogrel Bisulfate) 75 Mg Tablet 1 Tab PO DAILY Amlodipine Besylate 10 Mg Tablet 10 Mg PO BID Allergies Allergies: Coded Allergies: lisinopril (Verified Allergy, Severe, Swelling, 08/09/18) caused throat swelling ROS Respiratory: YES: Shortness of breath, SOB with excertion Cardiovascular: yes Chest Pain Physical Exam General: mild distress HEENT: Atraumatic Lungs: Other (decreased breath sounds.) Heart: Regular rate Vitals VITALS Vital Signs Date Time Temp Pulse Resp B/P (MAP) Pulse Ox O2 Delivery O2 Flow Rate FiO2 04/05/19 16:39 Room Air 04/05/19 16:38 80 150/99 04/05/19 15:10 98.6 18 98.6 04/05/19 14:31 1.0 04/05/19 12:05 98 Labs Labs Laboratory Tests Test 04/05/19 06:17 04/05/19 10:33 04/05/19 13:53 White Blood Count 6.9 x10^3/uL (4.0-11.0) Red Blood Count 4.92 x10^6/uL (4.30-5.70) Hemoglobin 9.1 g/dL (13.0-17.5) Hematocrit 30.6 % (39.0-53.0) Mean Corpuscular Volume 62 fL (79-100) Mean Corpuscular Hemoglobin 19 pg (25-35) Mean Corpuscular Hemoglobin Concent 30 g/dL (31-37) Red Cell Distribution Width 23.0 % (11.5-14.5) Platelet Count 242 x10^3/uL (140-400) Neutrophils (%) (Auto) 57 % (31-73) Lymphocytes (%) (Auto) 30 % (24-48) Monocytes (%) (Auto) 11 % (0-9) Eosinophils (%) (Auto) 1 % (0-3) Basophils (%) (Auto) 1 % (0-3) Neutrophils # (Auto) 4.0 x10^3uL (1.8-7.7) Lymphocytes # (Auto) 2.1 x10^3/uL (1.0-4.8) Monocytes # (Auto) 0.8 x10^3/uL (0.0-1.1) Eosinophils # (Auto) 0.1 x10^3/uL (0.0-0.7) Basophils # (Auto) 0.0 x10^3/uL (0.0-0.2) Platelet Estimate Adequate (ADEQUATE) Polychromasia Present Hypochromasia Present Anisocytosis Present Microcytosis Present Macrocytosis Present Ovalocytes Present Prothrombin Time 13.6 SEC (11.7-14.0) Prothromb Time International Ratio 1.1 (0.8-1.1) Activated Partial Thromboplast Time 30 SEC (24-38) D-Dimer (Thelma) 0.42 ug/mlFEU (0.00-0.50) Sodium Level 142 mmol/L (136-145) Potassium Level 4.1 mmol/L (3.5-5.1) Chloride Level 107 mmol/L (98-107) Carbon Dioxide Level 26 mmol/L (21-32) Anion Gap 9 (6-14) Blood Urea Nitrogen 31 mg/dL (8-26) Creatinine 2.1 mg/dL (0.7-1.3) Estimated GFR (Cockcroft-Gault) 40.5 BUN/Creatinine Ratio 15 (6-20) Glucose Level 106 mg/dL (70-99) Calcium Level 9.3 mg/dL (8.5-10.1) Magnesium Level 2.0 mg/dL (1.8-2.4) Total Bilirubin 0.7 mg/dL (0.2-1.0) Aspartate Amino Transf (AST/SGOT) 41 U/L (15-37) Alanine Aminotransferase (ALT/SGPT) 36 U/L (16-63) Alkaline Phosphatase 75 U/L (46-116) Creatine Kinase 481 U/L (39-308) Creatine Kinase MB (Mass) 5.3 ng/mL (0.0-3.6) Creatine Kinase MB Relative Index 1.1 % (0-4) Troponin I Quantitative 0.231 ng/mL (0.000-0.055) 0.194 ng/mL (0.000-0.055) 0.141 ng/mL (0.000-0.055) BV-Yuq-I-Type Natriuretic Peptide 3219 pg/mL (0-124) Total Protein 6.8 g/dL (6.4-8.2) Albumin 3.1 g/dL (3.4-5.0) Albumin/Globulin Ratio 0.8 (1.0-1.7) Lipase 224 U/L (73-393) Laboratory Tests Test 04/05/19 06:17 04/05/19 10:33 04/05/19 13:53 White Blood Count 6.9 x10^3/uL (4.0-11.0) Red Blood Count 4.92 x10^6/uL (4.30-5.70) Hemoglobin 9.1 g/dL (13.0-17.5) Hematocrit 30.6 % (39.0-53.0) Mean Corpuscular Volume 62 fL (79-100) Mean Corpuscular Hemoglobin 19 pg (25-35) Mean Corpuscular Hemoglobin Concent 30 g/dL (31-37) Red Cell Distribution Width 23.0 % (11.5-14.5) Platelet Count 242 x10^3/uL (140-400) Neutrophils (%) (Auto) 57 % (31-73) Lymphocytes (%) (Auto) 30 % (24-48) Monocytes (%) (Auto) 11 % (0-9) Eosinophils (%) (Auto) 1 % (0-3) Basophils (%) (Auto) 1 % (0-3) Neutrophils # (Auto) 4.0 x10^3uL (1.8-7.7) Lymphocytes # (Auto) 2.1 x10^3/uL (1.0-4.8) Monocytes # (Auto) 0.8 x10^3/uL (0.0-1.1) Eosinophils # (Auto) 0.1 x10^3/uL (0.0-0.7) Basophils # (Auto) 0.0 x10^3/uL (0.0-0.2) Platelet Estimate Adequate (ADEQUATE) Polychromasia Present Hypochromasia Present Anisocytosis Present Microcytosis Present Macrocytosis Present Ovalocytes Present Prothrombin Time 13.6 SEC (11.7-14.0) Prothromb Time International Ratio 1.1 (0.8-1.1) Activated Partial Thromboplast Time 30 SEC (24-38) D-Dimer (Thelma) 0.42 ug/mlFEU (0.00-0.50) Sodium Level 142 mmol/L (136-145) Potassium Level 4.1 mmol/L (3.5-5.1) Chloride Level 107 mmol/L (98-107) Carbon Dioxide Level 26 mmol/L (21-32) Anion Gap 9 (6-14) Blood Urea Nitrogen 31 mg/dL (8-26) Creatinine 2.1 mg/dL (0.7-1.3) Estimated GFR (Cockcroft-Gault) 40.5 BUN/Creatinine Ratio 15 (6-20) Glucose Level 106 mg/dL (70-99) Calcium Level 9.3 mg/dL (8.5-10.1) Magnesium Level 2.0 mg/dL (1.8-2.4) Total Bilirubin 0.7 mg/dL (0.2-1.0) Aspartate Amino Transf (AST/SGOT) 41 U/L (15-37) Alanine Aminotransferase (ALT/SGPT) 36 U/L (16-63) Alkaline Phosphatase 75 U/L (46-116) Creatine Kinase 481 U/L (39-308) Creatine Kinase MB (Mass) 5.3 ng/mL (0.0-3.6) Creatine Kinase MB Relative Index 1.1 % (0-4) Troponin I Quantitative 0.231 ng/mL (0.000-0.055) 0.194 ng/mL (0.000-0.055) 0.141 ng/mL (0.000-0.055) YH-Trp-J-Type Natriuretic Peptide 3219 pg/mL (0-124) Total Protein 6.8 g/dL (6.4-8.2) Albumin 3.1 g/dL (3.4-5.0) Albumin/Globulin Ratio 0.8 (1.0-1.7) Lipase 224 U/L (73-393) Images Images Chest x-ray with cardiomegaly and vascular congestion. Assessment/Plan Assessment/Plan 1. Acute systolic heart failure. History of decreased LV function as above. Improving with diuresis. We'll continue with diuresis and monitoring lab. Continue other baseline medications. 2. Coronary artery disease. Previous stenting at . Troponin peak of 0.213 and no new ischemic EKG changes. Stress testing 2 months ago showed a large lateral infarct with mild estephanie-infarct reversibility. Would not catheter this time secondary to patient's creatinine being elevated 2.1 which is above his baseline of 1.5 and 21.8. Continue baseline medications and monitoring. 3. COPD. Patient continues to smoke cigarettes. Treatment as per the pulmonary service. 4. Previous cocaine use. Patient states he has discontinued cocaine. Thank you for allowing us to participate in the care of your patient. PHILIP DUNAWAY MD April 05, 2019 17:24
[2019-04-05 19:00] VITALS: BP 135/86
[2019-04-05 23:00] VITALS: BP 154/103
--- NOTE | 2019-04-06 01:47 | CONS ---
DATE OF CONSULTATION: 04/05/2019 ATTENDING PHYSICIAN: Ruperto Pulido M.D. REASON FOR CONSULTATION: The patient seen in pulmonary consultation at the request of Dr. Pulido for increasing shortness of air. HISTORY OF PRESENT ILLNESS: The patient is a 53-year-old with a history of cardiomyopathy, hypertension, previous myocardial infarction, presented with chest tightness around the middle of the chest, radiating to the back. He felt like he had band. Along with the tightness he becomes short of breath. The patient has had previous admission for congestive heart failure. He states that this did not feel like it was CHF. He denies fever or chills. He does smoke every once in a while. He was wheezing. He uses albuterol at home. He states that the albuterol was not helpful. PAST MEDICAL HISTORY: Remarkable for cardiomyopathy, ejection fraction 40% -45%. History of chronic diastolic heart function. He does have a history of coronary artery disease with previous myocardial infarction, PCI in 06/2017, COPD secondary to pulmonary hypertension, CVA, sleep apnea. PAST SURGICAL HISTORY: As above. Previous cardiac catheterization with stent placement. REVIEW OF SYSTEMS: As indicated above, otherwise, a 10-point system was reviewed and negative. CURRENT MEDICATIONS: List was reviewed. ALLERGIES: LISINOPRIL. SOCIAL HISTORY: Smokes. FAMILY HISTORY: No family history of lung disorders. PHYSICAL EXAMINATION: GENERAL: The patient was in no respiratory distress. VITAL SIGNS: Stable. O2 saturation was greater than 92% on 1 liter. HEENT: Eyes, the sclerae were nonicteric. NECK: Jugular venous distention was not elevated. No lymphadenopathy. CHEST: Full expansion. LUNGS: Adequate airway flow with no wheezes. CARDIOVASCULAR: Regular rate and rhythm with S1, S2, no S3. ABDOMEN: Soft. EXTREMITIES: 1+ edema. NEUROLOGIC: The patient was awake, alert, following commands. A detailed neuro exam was not performed. LABORATORY DATA: White count was 6.9, hemoglobin and hematocrit were noted. Electrolytes were noted. BUN and creatinine were noted. Troponin was elevated. IMAGING: Chest x-ray revealed cardiomegaly with mild interstitial edema. IMPRESSION: 1. Chest pain, suspect chronic angina. 2. Coronary artery disease with previous stent placement and previous myocardial infarction. 3. Acute exacerbation of chronic obstructive pulmonary disease. 5. Tobacco dependence. 6. Abnormal x-ray. PLAN: 1. Suspect most the patient's symptoms are cardiac in origin. 2. We will add steroids. 3. Follow Cardiology input. 4. DVT and GI prophylaxis. I do appreciate the privilege in sharing in the patient's care. CHAY FELIX MD DR: WILD/kathryn JOB#: [id number] / [id number]
[2019-04-06 03:00] VITALS: BP 156/110
[2019-04-06] MEDS: fentaNYL PF VIAL 100 MCG/2 ML VIAL IV PRN ×5 (03:25→22:10)
[2019-04-06 05:58] LABS: CALCIUM 8.9 mg/dL (8.5-10.1); CREATININE 1.7 mg/dL (0.7-1.3); GFR 51.7; MAGNESIUM 2.2 mg/dL (1.8-2.4)
[2019-04-06] MEDS: methylPREDNISolone SOD SUCC PF 125 MG/2 ML VIAL. IV SCH ×3 (05:58→20:27)
[2019-04-06 06:01] LABS: POTASSIUM 4.8 mmol/L (3.5-5.1)
[2019-04-06 07:25] VITALS: BP 157/102
--- NOTE | 2019-04-06 07:59 | PDOC ---
PULMONARY PROGRESS NOTES Subjective still has sob and cp, has occ cough, Vitals Vital Signs Date Time Temp Pulse Resp B/P (MAP) Pulse Ox O2 Delivery O2 Flow Rate FiO2 04/06/19 07:25 98.2 83 20 157/102 (120) 96 Room Air 98.2 04/05/19 14:31 1.0 ROS: No Nausea General: Alert, No acute distress Lungs: Wheezing, Crackles Cardiovascular: S1, S2 Abdomen: Soft, Non-tender Neuro Exam: Alert Extremities: No Edema Skin: Warm Labs Laboratory Tests Test 04/05/19 06:17 04/05/19 10:33 04/05/19 13:53 04/06/19 04:30 White Blood Count 6.9 x10^3/uL (4.0-11.0) Red Blood Count 4.92 x10^6/uL (4.30-5.70) Hemoglobin 9.1 g/dL (13.0-17.5) Hematocrit 30.6 % (39.0-53.0) Mean Corpuscular Volume 62 fL (79-100) Mean Corpuscular Hemoglobin 19 pg (25-35) Mean Corpuscular Hemoglobin Concent 30 g/dL (31-37) Red Cell Distribution Width 23.0 % (11.5-14.5) Platelet Count 242 x10^3/uL (140-400) Neutrophils (%) (Auto) 57 % (31-73) Lymphocytes (%) (Auto) 30 % (24-48) Monocytes (%) (Auto) 11 % (0-9) Eosinophils (%) (Auto) 1 % (0-3) Basophils (%) (Auto) 1 % (0-3) Neutrophils # (Auto) 4.0 x10^3uL (1.8-7.7) Lymphocytes # (Auto) 2.1 x10^3/uL (1.0-4.8) Monocytes # (Auto) 0.8 x10^3/uL (0.0-1.1) Eosinophils # (Auto) 0.1 x10^3/uL (0.0-0.7) Basophils # (Auto) 0.0 x10^3/uL (0.0-0.2) Platelet Estimate Adequate (ADEQUATE) Polychromasia Present Hypochromasia Present Anisocytosis Present Microcytosis Present Macrocytosis Present Ovalocytes Present Prothrombin Time 13.6 SEC (11.7-14.0) Prothromb Time International Ratio 1.1 (0.8-1.1) Activated Partial Thromboplast Time 30 SEC (24-38) D-Dimer (Thelma) 0.42 ug/mlFEU (0.00-0.50) Sodium Level 142 mmol/L (136-145) 139 mmol/L (136-145) Potassium Level 4.1 mmol/L (3.5-5.1) 4.8 mmol/L (3.5-5.1) Chloride Level 107 mmol/L (98-107) 105 mmol/L (98-107) Carbon Dioxide Level 26 mmol/L (21-32) 24 mmol/L (21-32) Anion Gap 9 (6-14) 10 (6-14) Blood Urea Nitrogen 31 mg/dL (8-26) 35 mg/dL (8-26) Creatinine 2.1 mg/dL (0.7-1.3) 1.7 mg/dL (0.7-1.3) Estimated GFR (Cockcroft-Gault) 40.5 51.7 BUN/Creatinine Ratio 15 (6-20) Glucose Level 106 mg/dL (70-99) 162 mg/dL (70-99) Calcium Level 9.3 mg/dL (8.5-10.1) 8.9 mg/dL (8.5-10.1) Magnesium Level 2.0 mg/dL (1.8-2.4) 2.2 mg/dL (1.8-2.4) Total Bilirubin 0.7 mg/dL (0.2-1.0) Aspartate Amino Transf (AST/SGOT) 41 U/L (15-37) Alanine Aminotransferase (ALT/SGPT) 36 U/L (16-63) Alkaline Phosphatase 75 U/L (46-116) Creatine Kinase 481 U/L (39-308) Creatine Kinase MB (Mass) 5.3 ng/mL (0.0-3.6) Creatine Kinase MB Relative Index 1.1 % (0-4) Troponin I Quantitative 0.231 ng/mL (0.000-0.055) 0.194 ng/mL (0.000-0.055) 0.141 ng/mL (0.000-0.055) QA-Syv-B-Type Natriuretic Peptide 3219 pg/mL (0-124) Total Protein 6.8 g/dL (6.4-8.2) Albumin 3.1 g/dL (3.4-5.0) Albumin/Globulin Ratio 0.8 (1.0-1.7) Lipase 224 U/L (73-393) Laboratory Tests Test 04/05/19 10:33 04/05/19 13:53 04/06/19 04:30 Troponin I Quantitative 0.194 ng/mL (0.000-0.055) 0.141 ng/mL (0.000-0.055) Sodium Level 139 mmol/L (136-145) Potassium Level 4.8 mmol/L (3.5-5.1) Chloride Level 105 mmol/L (98-107) Carbon Dioxide Level 24 mmol/L (21-32) Anion Gap 10 (6-14) Blood Urea Nitrogen 35 mg/dL (8-26) Creatinine 1.7 mg/dL (0.7-1.3) Estimated GFR (Cockcroft-Gault) 51.7 Glucose Level 162 mg/dL (70-99) Calcium Level 8.9 mg/dL (8.5-10.1) Magnesium Level 2.2 mg/dL (1.8-2.4) Medications Active Scripts Medications Dose Route/Sig Max Daily Dose Days Date Category Hydrocodone-Acetamin 5-325 mg (Hydrocodone/Acetaminophen) 1 Each Tablet 1 Each PO PRN Q6HRS PRN 6 01/16/19 Rx Clopidogrel (Clopidogrel Bisulfate) 75 Mg Tablet 1 Tab PO DAILY 12/24/18 Reported [Pantoprazole] 40 MG Tablet.dr 40 Mg PO BIDAC 09/18/18 Rx Amlodipine Besylate 10 Mg Tablet 10 Mg PO BID 09/15/18 Reported Ventolin Hfa Inhaler (Albuterol Sulfate) 18 Gm Hfa.aer.ad 2 Puff INH Q4HRS 20 08/07/18 Rx Furosemide 40 Mg Tablet 40 Mg PO DAILY 30 07/13/18 Rx Carvedilol (Carvedilol) 12.5 Mg Tablet 25 Mg PO BIDWMEALS 30 07/13/18 Rx Isosorbide Mononitrate Er (Isosorbide Mononitrate) 30 Mg Tab.er.24h 60 Mg PO DAILY 30 07/13/18 Rx Hydralazine Hcl 50 Mg Tablet 100 Mg PO TID 30 07/13/18 Rx Lipitor (Atorvastatin Calcium) 20 Mg Tablet 1 Tab PO DAILY 07/04/15 Rx Fluticasone Propionate Nasal [place] (Fluticasone Propionate) 1 [place] Axton 2 [place] NS DAILY 07/04/15 Rx Impression . IMPRESSION: 1. CP, per cardiology. 2. Coronary artery disease with previous stent placement and previous myocardial infarction. 3. Acute exacerbation of chronic obstructive pulmonary disease. 5. Tobacco dependence. 6. Abnormal x-ray. 7. acute sys chf Plan . PLAN: 1. Suspect most the patient's symptoms are cardiac in origin. 2. cont solumedrol 80 q 8 hrs 3. Follow Cardiology input. 4. DVT and GI prophylaxis. 5. ? lasix per cardiology, keep I<O discussed w pt SANTIAGO SOSA MD April 06, 2019 07:59
[2019-04-06] MEDS: CLOPIDOGREL BISULFATE 75 MG TABLET PO SCH (08:29)
[2019-04-06] MEDS: CARVEDILOL 12.5 MG TABLET. PO SCH ×2 (08:29→18:05)
[2019-04-06] MEDS: ISOSORBIDE MONONITRATE ER 30 MG TAB.ER.24H PO SCH (08:30)
[2019-04-06] MEDS: amLODIPine BESYLATE 10 MG TABLET PO SCH ×2 (08:30→20:27)
--- NOTE | 2019-04-06 10:06 | PDOC ---
PROGRESS NOTES History of Present Illness History of Present Illness VTE Prophylaxis Ordered VTE Prophylaxis Devices: No VTE Pharmacological Prophylaxi: Yes Assessment/Plan Assessment/Plan IMPRESSION: CHEST PAIN cardiomegaly and central vascular congestion. Possible mild interstitial edema. COCAINE ABUSE pos in urine POA elevated troponin i mild exac copd cardiomyopathy ef 25%v SEC COCAINE ABUSE [place], acute STILL VERY soa with activity PLAN CVC ADMIT SERIAL TROPONIN Card consult pulm consult tobacco abuse disorder dvt prophylaxis diuresis Vitals Vitals Vital Signs Date Time Temp Pulse Resp B/P (MAP) Pulse Ox O2 Delivery O2 Flow Rate FiO2 04/06/19 09:51 98 Room Air 1.0 04/06/19 08:30 83 157/102 04/06/19 07:25 98.2 20 98.2 Physical Exam General: Alert, Oriented X3, Cooperative, mild distress Heart: Regular rate, Normal S1 Lungs: Wheezing, Crackles Abdomen: Soft Extremities: No cyanosis Skin: No breakdown Labs LABS Laboratory Tests Test 04/05/19 10:33 04/05/19 13:53 04/06/19 04:30 Troponin I Quantitative 0.194 ng/mL (0.000-0.055) 0.141 ng/mL (0.000-0.055) Sodium Level 139 mmol/L (136-145) Potassium Level 4.8 mmol/L (3.5-5.1) Chloride Level 105 mmol/L (98-107) Carbon Dioxide Level 24 mmol/L (21-32) Anion Gap 10 (6-14) Blood Urea Nitrogen 35 mg/dL (8-26) Creatinine 1.7 mg/dL (0.7-1.3) Estimated GFR (Cockcroft-Gault) 51.7 Glucose Level 162 mg/dL (70-99) Calcium Level 8.9 mg/dL (8.5-10.1) Magnesium Level 2.2 mg/dL (1.8-2.4) Assessment and Plan Assessmemt and Plan Problems Medical Problems: (1) Elevated troponin Status: Acute Comment Review of Relevant I have reviewed the following items coleman (where applicable) has been applied. Labs Laboratory Tests Test 04/05/19 06:17 04/05/19 10:33 04/05/19 13:53 04/06/19 04:30 White Blood Count 6.9 x10^3/uL (4.0-11.0) Red Blood Count 4.92 x10^6/uL (4.30-5.70) Hemoglobin 9.1 g/dL (13.0-17.5) Hematocrit 30.6 % (39.0-53.0) Mean Corpuscular Volume 62 fL (79-100) Mean Corpuscular Hemoglobin 19 pg (25-35) Mean Corpuscular Hemoglobin Concent 30 g/dL (31-37) Red Cell Distribution Width 23.0 % (11.5-14.5) Platelet Count 242 x10^3/uL (140-400) Neutrophils (%) (Auto) 57 % (31-73) Lymphocytes (%) (Auto) 30 % (24-48) Monocytes (%) (Auto) 11 % (0-9) Eosinophils (%) (Auto) 1 % (0-3) Basophils (%) (Auto) 1 % (0-3) Neutrophils # (Auto) 4.0 x10^3uL (1.8-7.7) Lymphocytes # (Auto) 2.1 x10^3/uL (1.0-4.8) Monocytes # (Auto) 0.8 x10^3/uL (0.0-1.1) Eosinophils # (Auto) 0.1 x10^3/uL (0.0-0.7) Basophils # (Auto) 0.0 x10^3/uL (0.0-0.2) Platelet Estimate Adequate (ADEQUATE) Polychromasia Present Hypochromasia Present Anisocytosis Present Microcytosis Present Macrocytosis Present Ovalocytes Present Prothrombin Time 13.6 SEC (11.7-14.0) Prothromb Time International Ratio 1.1 (0.8-1.1) Activated Partial Thromboplast Time 30 SEC (24-38) D-Dimer (Thelma) 0.42 ug/mlFEU (0.00-0.50) Sodium Level 142 mmol/L (136-145) 139 mmol/L (136-145) Potassium Level 4.1 mmol/L (3.5-5.1) 4.8 mmol/L (3.5-5.1) Chloride Level 107 mmol/L (98-107) 105 mmol/L (98-107) Carbon Dioxide Level 26 mmol/L (21-32) 24 mmol/L (21-32) Anion Gap 9 (6-14) 10 (6-14) Blood Urea Nitrogen 31 mg/dL (8-26) 35 mg/dL (8-26) Creatinine 2.1 mg/dL (0.7-1.3) 1.7 mg/dL (0.7-1.3) Estimated GFR (Cockcroft-Gault) 40.5 51.7 BUN/Creatinine Ratio 15 (6-20) Glucose Level 106 mg/dL (70-99) 162 mg/dL (70-99) Calcium Level 9.3 mg/dL (8.5-10.1) 8.9 mg/dL (8.5-10.1) Magnesium Level 2.0 mg/dL (1.8-2.4) 2.2 mg/dL (1.8-2.4) Total Bilirubin 0.7 mg/dL (0.2-1.0) Aspartate Amino Transf (AST/SGOT) 41 U/L (15-37) Alanine Aminotransferase (ALT/SGPT) 36 U/L (16-63) Alkaline Phosphatase 75 U/L (46-116) Creatine Kinase 481 U/L (39-308) Creatine Kinase MB (Mass) 5.3 ng/mL (0.0-3.6) Creatine Kinase MB Relative Index 1.1 % (0-4) Troponin I Quantitative 0.231 ng/mL (0.000-0.055) 0.194 ng/mL (0.000-0.055) 0.141 ng/mL (0.000-0.055) YL-Kdx-G-Type Natriuretic Peptide 3219 pg/mL (0-124) Total Protein 6.8 g/dL (6.4-8.2) Albumin 3.1 g/dL (3.4-5.0) Albumin/Globulin Ratio 0.8 (1.0-1.7) Lipase 224 U/L (73-393) Laboratory Tests Test 04/05/19 10:33 04/05/19 13:53 04/06/19 04:30 Troponin I Quantitative 0.194 ng/mL (0.000-0.055) 0.141 ng/mL (0.000-0.055) Sodium Level 139 mmol/L (136-145) Potassium Level 4.8 mmol/L (3.5-5.1) Chloride Level 105 mmol/L (98-107) Carbon Dioxide Level 24 mmol/L (21-32) Anion Gap 10 (6-14) Blood Urea Nitrogen 35 mg/dL (8-26) Creatinine 1.7 mg/dL (0.7-1.3) Estimated GFR (Cockcroft-Gault) 51.7 Glucose Level 162 mg/dL (70-99) Calcium Level 8.9 mg/dL (8.5-10.1) Magnesium Level 2.2 mg/dL (1.8-2.4) Medications Current Medications Aspirin (eEvent Aspirin) 325 mg 1X ONCE PO Last administered on 04/05/19 06:36; Start 04/05/19 at 07:00; Stop 04/05/19 at 07:01; Status DC Dexamethasone Sodium Phosphate (Decadron) 10 mg 1X ONCE IV Last administered on 04/05/19at 06:36; Start 04/05/19 at 07:00; Stop 04/05/19 at 07:01; Status DC Albuterol/ Ipratropium (Duoneb) 3 ml 1X ONCE NEB Last administered on 04/05/19at 06:43; Start 04/05/19 at 07:00; Stop 04/05/19 at 07:01; Status DC Fentanyl Citrate (Fentanyl 2ml Vial) 50 mcg 1X ONCE IV Last administered on 04/05/19at 06:36; Start 04/05/19 at 07:00; Stop 04/05/19 at 07:01; Status DC Sodium Chloride 500 ml @ 500 mls/hr 1X ONCE IV Last administered on 04/05/19at 06:35; Start 04/05/19 at 07:00; Stop 04/05/19 at 07:59; Status DC Ondansetron HCl (Zofran) 4 mg PRN Q8HRS PRN IV NAUSEA/VOMITING; Start 04/05/19 at 07:45; Stop 04/06/19 at 07:44; Status DC Fentanyl Citrate (Fentanyl 2ml Vial) 50 mcg PRN Q2HRS PRN IV PAIN Last administered on 04/05/19at 19:12; Start 04/05/19 at 07:45; Stop 04/05/19 at 19:12; Status DC Albuterol/ Ipratropium (Duoneb) 3 ml RTQID NEB Last administered on 04/05/19 16:34; Start 04/05/19 at 08:00; Stop 04/06/19 at 07:59; Status DC Amlodipine Besylate (Norvasc) 10 mg BID PO Last administered on 04/06/19 08:30; Start 04/05/19 at 12:00 Carvedilol (Coreg) 25 mg BIDWMEALS PO Last administered on 04/06/19 08:29; Start 04/05/19 at 12:00 Clopidogrel Bisulfate (Plavix) 75 mg DAILY PO Last administered on 04/06/19 08:29; Start 04/05/19 at 12:00 Isosorbide Mononitrate (Imdur) 60 mg DAILY PO Last administered on 04/06/19 08:30; Start 04/05/19 at 12:00 Hydralazine HCl (Apresoline) 100 mg TID PO Last administered on 04/06/19 08:30; Start 04/05/19 at 14:00 Methylprednisolone Sodium Succinate (SOLU-Medrol 125MG VIAL) 80 mg Q8HRS IV Last administered on 04/06/19 05:58; Start 04/05/19 at 15:30 Fentanyl Citrate (Fentanyl 2ml Vial) 50 mcg PRN Q2HR PRN IV SEVERE PAIN Last administered on 04/06/19 08:58; Start 04/05/19 at 22:15 Albuterol/ Ipratropium (Duoneb) 3 ml RTQID NEB ; Start 04/06/19 at 12:00 Active Scripts Active Hydrocodone-Acetamin 5-325 mg (Hydrocodone/Acetaminophen) 1 Each Tablet 1 Each PO PRN Q6HRS PRN 6 Days [Pantoprazole] 40 MG Tablet.dr 40 Mg PO BIDAC Ventolin Hfa Inhaler (Albuterol Sulfate) 18 Gm Hfa.aer.ad 2 Puff INH Q4HRS 20 Days Furosemide 40 Mg Tablet 40 Mg PO DAILY 30 Days Carvedilol (Carvedilol) 12.5 Mg Tablet 25 Mg PO BIDWMEALS 30 Days Isosorbide Mononitrate Er (Isosorbide Mononitrate) 30 Mg Tab.er.24h 60 Mg PO DAILY 30 Days Hydralazine Hcl 50 Mg Tablet 100 Mg PO TID 30 Days Lipitor (Atorvastatin Calcium) 20 Mg Tablet 1 Tab PO DAILY Fluticasone Propionate Nasal [place] (Fluticasone Propionate) 1 [place] 2 [place] NS DAILY Reported Clopidogrel (Clopidogrel Bisulfate) 75 Mg Tablet 1 Tab PO DAILY Amlodipine Besylate 10 Mg Tablet 10 Mg PO BID Vitals/I & O Vital Sign - Last 24 Hours 04/05/19 04/05/19 04/05/19 04/05/19 10:59 11:00 11:58 11:59 Temp 98.3 98.3 Pulse 95 92 92 Resp 18 B/P (MAP) 174/120 (138) 170/112 170/112 Pulse Ox 93 O2 Delivery Room Air Room Air 04/05/19 04/05/19 04/05/19 04/05/19 11:59 12:05 14:05 14:31 Pulse 92 78 B/P (MAP) 170/112 145/93 Pulse Ox 98 O2 Delivery Room Air Nasal Cannula O2 Flow Rate 1.0 04/05/19 04/05/19 04/05/19 04/05/19 15:10 16:35 16:38 19:00 Temp 98.6 97.6 98.6 97.6 Pulse 81 80 87 Resp 18 20 B/P (MAP) 147/101 (116) 150/99 135/86 (102) Pulse Ox 94 O2 Delivery Room Air Room Air 04/05/19 04/05/19 04/05/19 04/05/19 19:12 19:42 19:45 21:08 Pulse 87 Resp 20 20 B/P (MAP) 135/86 O2 Delivery Room Air Room Air Room Air 04/05/19 04/05/19 04/05/19 04/06/19 21:08 23:00 23:33 03:00 Temp 98.8 97.7 98.8 97.7 Pulse 87 93 89 Resp 20 20 B/P (MAP) 135/86 154/103 (120) 156/110 (125) Pulse Ox 98 100 O2 Delivery Room Air Room Air Room Air 04/06/19 04/06/19 04/06/19 04/06/19 03:25 03:55 07:25 08:00 Temp 98.2 98.2 Pulse 83 Resp 20 20 20 B/P (MAP) 157/102 (120) Pulse Ox 96 O2 Delivery Room Air Room Air Room Air 04/06/19 04/06/19 04/06/19 04/06/19 08:29 08:30 08:30 08:30 Pulse 83 83 83 83 B/P (MAP) 157/102 157/102 157/102 157/102 04/06/19 04/06/19 04/06/19 08:33 08:58 09:51 Pulse Ox 98 98 98 O2 Delivery Room Air Room Air Room Air O2 Flow Rate 1.0 Intake and Output 04/05/19 04/05/19 04/06/19 14:59 22:59 06:59 Intake Total 500 ml 960 ml 300 ml Output Total 100 ml 400 ml Balance 400 ml 960 ml -100 ml NICOLE PERALTA MD April 06, 2019 10:06
--- NOTE | 2019-04-06 10:43 | PDOC ---
CARDIOLOGY PROGRESS NOTE SUBJECTIVE: Continues to feel dyspnea. No chest pain. OBJECTIVE: Vital SIgns: Vital Signs Date Time Temp Pulse Resp B/P (MAP) Pulse Ox O2 Delivery O2 Flow Rate FiO2 04/06/19 09:51 98 Room Air 1.0 04/06/19 08:30 83 157/102 04/06/19 07:25 98.2 20 98.2 I & O Intake and Output 04/06/19 07:00 Intake Total 1760 ml Output Total 500 ml Balance 1260 ml Intake Oral 1260 ml IV Total 500 ml Output Urine Total 500 ml Objective: GEN.: No apparent distress. Alert and oriented. tachypneic HEENT: Head is normocephalic, atraumatic NECK: Supple. LUNGS: Bibasilar rales HEART: RRR, S1, S2 present. Peripheral pulses intact ABDOMEN: Soft, nontender. Positive bowel sounds. EXTREMITIES: Without any cyanosis. NEUROLOGIC: Normal speech, normal tone PSYCHIATRIC: Normal affect, normal mood. SKIN: No ulcerations CURRENT MEDICATIONS: Current Medications Medications (Trade) Dose Ordered Sig/Deepa Start Time Stop Time Status Last Admin Dose Admin Albuterol/ Ipratropium (Duoneb) 3 ml RTQID 04/06/19 12:00 Amlodipine Besylate (Norvasc) 10 mg BID 04/05/19 12:00 04/06/19 08:30 10 MG Aspirin (Nilson Aspirin) 325 mg 1X ONCE 04/05/19 07:00 04/05/19 07:01 DC 04/05/19 06:36 325 MG Aspirin (Ecotrin) 81 mg DAILYWBKFT 04/06/19 11:00 Carvedilol (Coreg) 25 mg BIDWMEALS 04/05/19 12:00 04/06/19 08:29 25 MG Clopidogrel Bisulfate (Plavix) 75 mg DAILY 04/05/19 12:00 04/06/19 08:29 75 MG Dexamethasone Sodium Phosphate (Decadron) 10 mg 1X ONCE 04/05/19 07:00 04/05/19 07:01 DC 04/05/19 06:36 10 MG Fentanyl Citrate (Fentanyl 2ml Vial) 50 mcg PRN Q2HR PRN 04/05/19 22:15 04/06/19 08:58 50 MCG Furosemide (Lasix) 40 mg DAILY 04/06/19 11:00 Hydralazine HCl (Apresoline) 100 mg TID 04/05/19 14:00 04/06/19 08:30 100 MG Isosorbide Mononitrate (Imdur) 60 mg DAILY 04/05/19 12:00 04/06/19 08:30 60 MG Methylprednisolone Sodium Succinate (SOLU-Medrol 125MG VIAL) 80 mg Q8HRS 04/05/19 15:30 04/06/19 05:58 80 MG Ondansetron HCl (Zofran) 4 mg PRN Q8HRS PRN 04/05/19 07:45 04/06/19 07:44 DC Sodium Chloride 500 ml @ 500 mls/hr 1X ONCE 04/05/19 07:00 04/05/19 07:59 DC 04/05/19 06:35 500 MLS/HR DIAGNOSTIC TESTING: hgb 9.1, Trop 1.7 ASSESSMENT: 1. Acute on chronic systolic HF, EF 25%. 2. Elevated troponin likely due to above 3. CKD with VITALIY, improved 4. Prior drug abuse 5. HTN PLAN: 1. Will give lasix 40mg IVP now. Check output 2. Consider outpt ischemic evaluation. Continue excellent HF regimen. 3. Suspect patient not on DAPT due to prior GIB, will continue Plavix only. Thanks. AARTI TORRE MD April 06, 2019 10:43
[2019-04-06] MEDS ORDERED: ASPIRIN ENTERIC COATED 81 MG TABLET.DR. PO SCH (11:00)
[2019-04-06 11:10] VITALS: BP 134/86
[2019-04-06 11:17] LABS: BARBITURATES NEG (NEG); BENZODIAZEPINES NEG (NEG); CANNABINOIDS NEG (NEG); METHADONE NEG (NEG); OPIATES NEG (NEG); PHENCYCLIDINE NEG (NEG)
[2019-04-06 11:41] LABS: AMPHETAMINE/METHAMPHETAMINE NEG (NEG)
[2019-04-06 11:42] LABS: COCAINE POS (NEG)
[2019-04-06] MEDS: IPRATRPIUM/ALBUTEROL 0.5/2.5MG 3 ML NEBU. NEB SCH (11:44)
[2019-04-06] MEDS: FUROSEMIDE 40 MG/4 ML VIAL. IVP SCH (11:52)
[2019-04-06 15:05] VITALS: BP 136/89
[2019-04-06] MEDS: traMADol 50 MG TABLET PO PRN (15:33)
[2019-04-06 19:59] VITALS: BP 154/96
[2019-04-06 23:35] VITALS: BP 153/106
[2019-04-07] MEDS: fentaNYL PF VIAL 100 MCG/2 ML VIAL IV PRN ×4 (02:04→21:15)
[2019-04-07 03:49] VITALS: BP 119/97
[2019-04-07] MEDS: methylPREDNISolone SOD SUCC PF 125 MG/2 ML VIAL. IV SCH (05:36)
[2019-04-07 07:49] VITALS: BP 141/96
--- NOTE | 2019-04-07 07:54 | PDOC ---
PULMONARY PROGRESS NOTES Subjective still has sob and cp, has occ cough, Vitals Vital Signs Date Time Temp Pulse Resp B/P (MAP) Pulse Ox O2 Delivery O2 Flow Rate FiO2 04/07/19 07:49 98.5 73 20 141/96 (111) Room Air 98.5 04/07/19 03:49 96 04/06/19 19:06 1.0 ROS: No Nausea General: Alert, No acute distress Lungs: Crackles Cardiovascular: S1, S2 Abdomen: Soft, Non-tender Neuro Exam: Alert Extremities: No Edema Skin: Warm Labs Laboratory Tests Test 04/05/19 10:33 04/05/19 13:53 04/06/19 04:30 04/06/19 10:51 Troponin I Quantitative 0.194 ng/mL (0.000-0.055) 0.141 ng/mL (0.000-0.055) Sodium Level 139 mmol/L (136-145) Potassium Level 4.8 mmol/L (3.5-5.1) Chloride Level 105 mmol/L (98-107) Carbon Dioxide Level 24 mmol/L (21-32) Anion Gap 10 (6-14) Blood Urea Nitrogen 35 mg/dL (8-26) Creatinine 1.7 mg/dL (0.7-1.3) Estimated GFR (Cockcroft-Gault) 51.7 Glucose Level 162 mg/dL (70-99) Calcium Level 8.9 mg/dL (8.5-10.1) Magnesium Level 2.2 mg/dL (1.8-2.4) Urine Opiates Screen Neg (NEG) Urine Methadone Screen Neg (NEG) Urine Barbiturates Neg (NEG) Urine Phencyclidine Screen Neg (NEG) Urine Amphetamine/Methamphetamine Neg (NEG) Urine Benzodiazepines Screen Neg (NEG) Urine Cocaine Screen Pos (NEG) Urine Cannabinoids Screen Neg (NEG) Urine Ethyl Alcohol Neg (NEG) Laboratory Tests Test 04/06/19 10:51 Urine Opiates Screen Neg (NEG) Urine Methadone Screen Neg (NEG) Urine Barbiturates Neg (NEG) Urine Phencyclidine Screen Neg (NEG) Urine Amphetamine/Methamphetamine Neg (NEG) Urine Benzodiazepines Screen Neg (NEG) Urine Cocaine Screen Pos (NEG) Urine Cannabinoids Screen Neg (NEG) Urine Ethyl Alcohol Neg (NEG) Medications Active Scripts Medications Dose Route/Sig Max Daily Dose Days Date Category Hydrocodone-Acetamin 5-325 mg (Hydrocodone/Acetaminophen) 1 Each Tablet 1 Each PO PRN Q6HRS PRN 6 01/16/19 Rx Clopidogrel (Clopidogrel Bisulfate) 75 Mg Tablet 1 Tab PO DAILY 12/24/18 Reported [Pantoprazole] 40 MG Tablet.dr 40 Mg PO BIDAC 09/18/18 Rx Amlodipine Besylate 10 Mg Tablet 10 Mg PO BID 09/15/18 Reported Ventolin Hfa Inhaler (Albuterol Sulfate) 18 Gm Hfa.aer.ad 2 Puff INH Q4HRS 20 08/07/18 Rx Furosemide 40 Mg Tablet 40 Mg PO DAILY 30 07/13/18 Rx Carvedilol (Carvedilol) 12.5 Mg Tablet 25 Mg PO BIDWMEALS 30 07/13/18 Rx Isosorbide Mononitrate Er (Isosorbide Mononitrate) 30 Mg Tab.er.24h 60 Mg PO DAILY 30 07/13/18 Rx Hydralazine Hcl 50 Mg Tablet 100 Mg PO TID 30 07/13/18 Rx Lipitor (Atorvastatin Calcium) 20 Mg Tablet 1 Tab PO DAILY 07/04/15 Rx Fluticasone Propionate Nasal [place] (Fluticasone Propionate) 1 [place] 2 [place] NS DAILY 07/04/15 Rx Impression . IMPRESSION: 1. CP, per cardiology. 2. Coronary artery disease with previous stent placement and previous myocardial infarction. 3. Acute exacerbation of chronic obstructive pulmonary disease. 5. Tobacco dependence. 6. Abnormal x-ray. b lat infilt resolving, suspect chf 7. acute sys chf Plan . PLAN: 1. Suspect most the patient's symptoms are cardiac in origin. 2. change solumedrol to 40 q 8 hrs 3. Follow Cardiology input. 4. DVT and GI prophylaxis. 5. keep I<O, lasix per cardiology, monitor k, cr 6. may need RHC, LHC discussed w pt SANTIAGO SOSA MD April 07, 2019 07:54
[2019-04-07] MEDS: IPRATRPIUM/ALBUTEROL 0.5/2.5MG 3 ML NEBU. NEB SCH ×4 (08:31→19:38)
[2019-04-07] MEDS: CLOPIDOGREL BISULFATE 75 MG TABLET PO SCH (08:56)
[2019-04-07] MEDS: ISOSORBIDE MONONITRATE ER 30 MG TAB.ER.24H PO SCH (08:58)
[2019-04-07] MEDS: CARVEDILOL 12.5 MG TABLET. PO SCH ×2 (08:59→17:39)
[2019-04-07] MEDS: FUROSEMIDE 40 MG/4 ML VIAL. IVP SCH (08:59)
[2019-04-07] MEDS: amLODIPine BESYLATE 10 MG TABLET PO SCH ×2 (08:59→21:14)
--- NOTE | 2019-04-07 09:51 | PDOC ---
Provider Note Provider Note No new issues. Still SOA Exam unchanged. Labs pending CXR pending plan -Await BMP, depending on Cr, may more aggressively diurese -If no improvement in CXR or symptoms tomorrow, plan for RHC and consider LHC depending on cr. Thanks. d/w with patient and nursing staff. AARTI TORRE MD April 07, 2019 09:51
[2019-04-07 10:32] VITALS: BP 146/95
--- NOTE | 2019-04-07 11:36 | PDOC ---
PROGRESS NOTES History of Present Illness History of Present Illness VTE Prophylaxis Ordered VTE Prophylaxis Devices: No VTE Pharmacological Prophylaxi: Yes Assessment/Plan Assessment/Plan IMPRESSION: CHEST PAIN cardiomegaly and central vascular congestion. Possible mild interstitial edema. COCAINE ABUSE pos in urine POA elevated troponin i mild exac copd cardiomyopathy ef 25%v SEC COCAINE ABUSE [place], acute STILL VERY soa with activity PLAN CVC ADMIT SERIAL TROPONIN Card consult pulm consult tobacco abuse disorder dvt prophylaxis diuresis CARDIAC CATH IN AM 43 MIN PT EXAM, CHART REVIEW, > 50% OF TIME SPENT WITH EXAM, CHART REVIEW, PT CARE COORDINATION Vitals Vitals Vital Signs Date Time Temp Pulse Resp B/P (MAP) Pulse Ox O2 Delivery O2 Flow Rate FiO2 04/07/19 10:48 Room Air 04/07/19 10:32 97.8 80 19 146/95 (112) 97 97.8 04/06/19 19:06 1.0 Physical Exam General: Alert, Oriented X3, Cooperative, No acute distress Heart: Regular rate, Normal S1 Lungs: Crackles Abdomen: Soft Extremities: No cyanosis Skin: No breakdown Assessment and Plan Assessmemt and Plan Problems Medical Problems: (1) Elevated troponin Status: Acute Comment Review of Relevant I have reviewed the following items coleman (where applicable) has been applied. Labs Laboratory Tests Test 04/05/19 13:53 04/06/19 04:30 04/06/19 10:51 Troponin I Quantitative 0.141 ng/mL (0.000-0.055) Sodium Level 139 mmol/L (136-145) Potassium Level 4.8 mmol/L (3.5-5.1) Chloride Level 105 mmol/L (98-107) Carbon Dioxide Level 24 mmol/L (21-32) Anion Gap 10 (6-14) Blood Urea Nitrogen 35 mg/dL (8-26) Creatinine 1.7 mg/dL (0.7-1.3) Estimated GFR (Cockcroft-Gault) 51.7 Glucose Level 162 mg/dL (70-99) Calcium Level 8.9 mg/dL (8.5-10.1) Magnesium Level 2.2 mg/dL (1.8-2.4) Urine Opiates Screen Neg (NEG) Urine Methadone Screen Neg (NEG) Urine Barbiturates Neg (NEG) Urine Phencyclidine Screen Neg (NEG) Urine Amphetamine/Methamphetamine Neg (NEG) Urine Benzodiazepines Screen Neg (NEG) Urine Cocaine Screen Pos (NEG) Urine Cannabinoids Screen Neg (NEG) Urine Ethyl Alcohol Neg (NEG) Medications Current Medications Aspirin (Nilson Aspirin) 325 mg 1X ONCE PO Last administered on 04/05/19 06:36; Start 04/05/19 at 07:00; Stop 04/05/19 at 07:01; Status DC Dexamethasone Sodium Phosphate (Decadron) 10 mg 1X ONCE IV Last administered on 04/05/19at 06:36; Start 04/05/19 at 07:00; Stop 04/05/19 at 07:01; Status DC Albuterol/ Ipratropium (Duoneb) 3 ml 1X ONCE NEB Last administered on 04/05/19at 06:43; Start 04/05/19 at 07:00; Stop 04/05/19 at 07:01; Status DC Fentanyl Citrate (Fentanyl 2ml Vial) 50 mcg 1X ONCE IV Last administered on 04/05/19at 06:36; Start 04/05/19 at 07:00; Stop 04/05/19 at 07:01; Status DC Sodium Chloride 500 ml @ 500 mls/hr 1X ONCE IV Last administered on 04/05/19at 06:35; Start 04/05/19 at 07:00; Stop 04/05/19 at 07:59; Status DC Ondansetron HCl (Zofran) 4 mg PRN Q8HRS PRN IV NAUSEA/VOMITING; Start 04/05/19 at 07:45; Stop 04/06/19 at 07:44; Status DC Fentanyl Citrate (Fentanyl 2ml Vial) 50 mcg PRN Q2HRS PRN IV PAIN Last administered on 04/05/19at 19:12; Start 04/05/19 at 07:45; Stop 04/05/19 at 19:12; Status DC Albuterol/ Ipratropium (Duoneb) 3 ml RTQID NEB Last administered on 04/05/19at 16:34; Start 04/05/19 at 08:00; Stop 04/06/19 at 07:59; Status DC Amlodipine Besylate (Norvasc) 10 mg BID PO Last administered on 04/07/19at 08:59; Start 04/05/19 at 12:00 Carvedilol (Coreg) 25 mg BIDWMEALS PO Last administered on 04/07/19 08:59; Start 04/05/19 at 12:00 Clopidogrel Bisulfate (Plavix) 75 mg DAILY PO Last administered on 04/07/19 08:56; Start 04/05/19 at 12:00 Isosorbide Mononitrate (Imdur) 60 mg DAILY PO Last administered on 04/07/19 08:58; Start 04/05/19 at 12:00 Hydralazine HCl (Apresoline) 100 mg TID PO Last administered on 04/07/19 08:57; Start 04/05/19 at 14:00 Methylprednisolone Sodium Succinate (SOLU-Medrol 125MG VIAL) 80 mg Q8HRS IV Last administered on 04/07/19 05:36; Start 04/05/19 at 15:30; Stop 04/07/19 at 07:55; Status DC Fentanyl Citrate (Fentanyl 2ml Vial) 50 mcg PRN Q2HR PRN IV SEVERE PAIN Last administered on 04/07/19 10:48; Start 04/05/19 at 22:15 Albuterol/ Ipratropium (Duoneb) 3 ml RTQID NEB Last administered on 04/07/19 08:31; Start 04/06/19 at 12:00 Furosemide (Lasix) 40 mg DAILY IVP Last administered on 04/07/19 08:59; Start 04/06/19 at 11:00 Aspirin (Ecotrin) 81 mg DAILYWBKFT PO ; Start 04/06/19 at 11:00; Stop 04/06/19 at 11:00; Status DC Tramadol HCl (Ultram) 50 mg PRN Q6HRS PRN PO PAIN Last administered on 04/06/19 15:33; Start 04/06/19 at 15:30 Methylprednisolone Sodium Succinate (SOLU-Medrol 40MG VIAL) 40 mg Q8HRS IV ; Start 04/07/19 at 14:00 Active Scripts Active Hydrocodone-Acetamin 5-325 mg (Hydrocodone/Acetaminophen) 1 Each Tablet 1 Each PO PRN Q6HRS PRN 6 Days [Pantoprazole] 40 MG Tablet.dr 40 Mg PO BIDAC Ventolin Hfa Inhaler (Albuterol Sulfate) 18 Gm Hfa.aer.ad 2 Puff INH Q4HRS 20 Days Furosemide 40 Mg Tablet 40 Mg PO DAILY 30 Days Carvedilol (Carvedilol) 12.5 Mg Tablet 25 Mg PO BIDWMEALS 30 Days Isosorbide Mononitrate Er (Isosorbide Mononitrate) 30 Mg Tab.er.24h 60 Mg PO DAILY 30 Days Hydralazine Hcl 50 Mg Tablet 100 Mg PO TID 30 Days Lipitor (Atorvastatin Calcium) 20 Mg Tablet 1 Tab PO DAILY Fluticasone Propionate Nasal [place] (Fluticasone Propionate) 1 [place] NS DAILY Reported Clopidogrel (Clopidogrel Bisulfate) 75 Mg Tablet 1 Tab PO DAILY Amlodipine Besylate 10 Mg Tablet 10 Mg PO BID Vitals/I & O Vital Sign - Last 24 Hours 04/06/19 04/06/19 04/06/19 04/06/19 11:45 11:56 15:05 15:33 Temp 98.1 98.1 Pulse 87 Resp 20 B/P (MAP) 136/89 (105) Pulse Ox 96 95 95 O2 Delivery Room Air Room Air Room Air Room Air O2 Flow Rate 1.0 04/06/19 04/06/19 04/06/19 04/06/19 15:34 18:05 18:06 18:07 Pulse 87 87 B/P (MAP) 136/89 136/89 Pulse Ox 95 95 O2 Delivery Room Air Room Air O2 Flow Rate 1.0 1.0 04/06/19 04/06/19 04/06/19 04/06/19 19:06 19:54 19:59 20:27 Temp 98.3 98.3 Pulse 92 92 Resp 20 B/P (MAP) 154/96 (115) 154/96 Pulse Ox 95 96 O2 Delivery Room Air Room Air O2 Flow Rate 1.0 04/06/19 04/06/19 04/06/19 04/07/19 20:27 22:10 23:35 02:04 Temp 97.5 97.5 Pulse 92 86 Resp 20 21 20 B/P (MAP) 154/96 153/106 (122) Pulse Ox 95 O2 Delivery Nasal Cannula Room Air Room Air 04/07/19 04/07/19 04/07/19 04/07/19 02:34 03:49 07:49 08:00 Temp 97.5 98.5 97.5 98.5 Pulse 69 73 Resp 20 19 20 B/P (MAP) 119/97 (104) 141/96 (111) Pulse Ox 96 O2 Delivery Nasal Cannula Room Air Room Air Room Air 04/07/19 04/07/19 04/07/19 04/07/19 08:33 08:57 08:58 08:59 Pulse 73 B/P (MAP) 141/96 141/96 141/96 Pulse Ox 98 O2 Delivery Room Air 04/07/19 04/07/19 04/07/19 08:59 10:32 10:48 Temp 97.8 97.8 Pulse 80 80 Resp 19 B/P (MAP) 146/95 (112) Pulse Ox 97 O2 Delivery Room Air Room Air Intake and Output 04/06/19 04/06/19 04/07/19 15:00 23:00 07:00 Intake Total 120 ml 600 ml Output Total 1325 ml 250 ml Balance -1325 ml -130 ml 600 ml NICOLE PERALTA MD April 07, 2019 11:36
[2019-04-07 11:42] LABS: CALCIUM 9.4 mg/dL (8.5-10.1); CREATININE 1.9 mg/dL (0.7-1.3); GFR 45.4; POTASSIUM 4.7 mmol/L (3.5-5.1)
--- NOTE | 2019-04-07 14:22 | RAD ---
PORTABLE CHEST 1V Clinical indications: Dyspnea. COMPARISON: 07/06/2019. Findings: Previously seen interstitial pulmonary edema has resolved. No acute lung infiltrate or pleural effusion or pulmonary edema or lung mass or pneumothorax is seen. Heart size is enlarged but stable. The pulmonary vasculature, mediastinum and both soumya are stable. Impression: Resolution of previously seen bilateral interstitial pulmonary edema. No new finding. Electronically signed by: Bret Miller MD (04/07/2019 2:20 PM) [facility]
[2019-04-07 14:26] VITALS: BP 123/72
[2019-04-07] MEDS: methylPREDNISolone SOD SUCC PF 40 MG/ML VIAL. IV SCH ×2 (15:30→21:15)
[2019-04-07 19:20] VITALS: BP 129/69
[2019-04-07 23:05] VITALS: BP 134/82
[2019-04-08] VITALS (14 sets, daily range): BP systolic 118–145; BP diastolic 71–97
[2019-04-08 03:31] LABS: BASO % 0 % (0-3); EOS % 0 % (0-3); HEMATOCRIT 29.3 % (39.0-53.0); HEMOGLOBIN 8.4 g/dL (13.0-17.5); LYMPH # 1.5 x10^3/uL (1.0-4.8); LYMPH % 10 % (24-48); MEAN CORPUSCULAR HEMOGLOBIN 18 pg (25-35); MEAN CORPUSCULAR HGB CONC 29 g/dL (31-37); MEAN CORPUSCULAR VOLUME 63 fL (79-100); MONO # 0.4 x10^3/uL (0.0-1.1); MONO % 3 % (0-9); NEUT # 12.9 x10^3uL (1.8-7.7); NEUT % 87 % (31-73); PLATELET COUNT 252 x10^3/uL (140-400); RED BLOOD COUNT 4.66 x10^6/uL (4.30-5.70); RED CELL DISTRIBUTION WIDTH 22.9 % (11.5-14.5); WHITE BLOOD COUNT 14.8 x10^3/uL (4.0-11.0)
[2019-04-08 03:44] LABS: CALCIUM 9.2 mg/dL (8.5-10.1); CREATININE 1.9 mg/dL (0.7-1.3); GFR 45.4
[2019-04-08] MEDS: methylPREDNISolone SOD SUCC PF 40 MG/ML VIAL. IV SCH ×3 (05:40→20:46)
[2019-04-08 06:02] LABS: % BANDS 1 % (0-9); % LYMPHS 4 % (24-48); % MONOS 1 % (0-10); % SEGS 94 % (35-66)
[2019-04-08 06:03] LABS: PLT ESTIMATE ADEQUATE (ADEQUATE)
[2019-04-08 06:04] LABS: ANISOCYTOSIS PRESENT; HYPOCHROMIA PRESENT; MICROCYTOSIS PRESENT; POIKILOCYTOSIS PRESENT; POLYCHROMASIA PRESENT
[2019-04-08 06:05] LABS: OVALOCYTES PRESENT
[2019-04-08] MEDS: IPRATRPIUM/ALBUTEROL 0.5/2.5MG 3 ML NEBU. NEB SCH ×4 (07:56→19:43)
[2019-04-08] MEDS: FUROSEMIDE 40 MG/4 ML VIAL. IVP SCH (09:00)
[2019-04-08] MEDS: amLODIPine BESYLATE 10 MG TABLET PO SCH ×2 (09:31→20:45)
[2019-04-08] MEDS: CLOPIDOGREL BISULFATE 75 MG TABLET PO SCH (09:31)
[2019-04-08] MEDS: CARVEDILOL 12.5 MG TABLET. PO SCH ×2 (09:31→18:28)
[2019-04-08] MEDS: ISOSORBIDE MONONITRATE ER 30 MG TAB.ER.24H PO SCH (09:32)
[2019-04-08] MEDS: fentaNYL PF VIAL 100 MCG/2 ML VIAL IV PRN ×2 (09:38→16:09)
--- NOTE | 2019-04-08 13:29 | PDOC ---
PROGRESS NOTES Chief Complaint Chief Complaint CHEST PAIN, angina with any exertion cardiomegaly and central vascular congestion. Possible mild interstitial edema. Cocaine abuse, recent, elevated troponin i , poss demand, NSTEMI 2 mild exac copd cardiomyopathy ef 25%v SEC COCAINE ABUSE History of Present Illness History of Present Illness cardiac cath today, poss right heart CV team following, pulm consult tobacco abuse disorder dvt prophylaxis diuresis sobriety discussed Vitals Vitals Vital Signs Date Time Temp Pulse Resp B/P (MAP) Pulse Ox O2 Delivery O2 Flow Rate FiO2 04/08/19 11:18 98 Room Air 04/08/19 10:41 97.7 79 20 145/97 (113) 2.0 97.7 Physical Exam General: Alert, Oriented X3, Cooperative, No acute distress Heart: Regular rate, Normal S1 Lungs: Crackles Abdomen: Soft Extremities: No cyanosis Skin: No breakdown Labs LABS Laboratory Tests Test 04/08/19 03:05 White Blood Count 14.8 x10^3/uL (4.0-11.0) Red Blood Count 4.66 x10^6/uL (4.30-5.70) Hemoglobin 8.4 g/dL (13.0-17.5) Hematocrit 29.3 % (39.0-53.0) Mean Corpuscular Volume 63 fL (79-100) Mean Corpuscular Hemoglobin 18 pg (25-35) Mean Corpuscular Hemoglobin Concent 29 g/dL (31-37) Red Cell Distribution Width 22.9 % (11.5-14.5) Platelet Count 252 x10^3/uL (140-400) Neutrophils (%) (Auto) 87 % (31-73) Lymphocytes (%) (Auto) 10 % (24-48) Monocytes (%) (Auto) 3 % (0-9) Eosinophils (%) (Auto) 0 % (0-3) Basophils (%) (Auto) 0 % (0-3) Neutrophils # (Auto) 12.9 x10^3uL (1.8-7.7) Lymphocytes # (Auto) 1.5 x10^3/uL (1.0-4.8) Monocytes # (Auto) 0.4 x10^3/uL (0.0-1.1) Eosinophils # (Auto) 0.0 x10^3/uL (0.0-0.7) Basophils # (Auto) 0.0 x10^3/uL (0.0-0.2) Segmented Neutrophils % 94 % (35-66) Band Neutrophils % 1 % (0-9) Lymphocytes % 4 % (24-48) Monocytes % 1 % (0-10) Platelet Estimate Adequate (ADEQUATE) Large Platelets Present Giant Platelets Present Polychromasia Present Hypochromasia Present Poikilocytosis Present Anisocytosis Present Microcytosis Present Macrocytosis Present Ovalocytes Present Sodium Level 137 mmol/L (136-145) Potassium Level 5.0 mmol/L (3.5-5.1) Chloride Level 104 mmol/L (98-107) Carbon Dioxide Level 26 mmol/L (21-32) Anion Gap 7 (6-14) Blood Urea Nitrogen 43 mg/dL (8-26) Creatinine 1.9 mg/dL (0.7-1.3) Estimated GFR (Cockcroft-Gault) 45.4 Glucose Level 153 mg/dL (70-99) Calcium Level 9.2 mg/dL (8.5-10.1) Review of Systems Review of Systems no n.v.d Assessment and Plan Assessmemt and Plan Problems Medical Problems: (1) Elevated troponin Status: Acute Comment Review of Relevant I have reviewed the following items coleman (where applicable) has been applied. Labs Laboratory Tests Test 04/07/19 11:04 04/08/19 03:05 Sodium Level 137 mmol/L (136-145) 137 mmol/L (136-145) Potassium Level 4.7 mmol/L (3.5-5.1) 5.0 mmol/L (3.5-5.1) Chloride Level 103 mmol/L (98-107) 104 mmol/L (98-107) Carbon Dioxide Level 25 mmol/L (21-32) 26 mmol/L (21-32) Anion Gap 9 (6-14) 7 (6-14) Blood Urea Nitrogen 42 mg/dL (8-26) 43 mg/dL (8-26) Creatinine 1.9 mg/dL (0.7-1.3) 1.9 mg/dL (0.7-1.3) Estimated GFR (Cockcroft-Gault) 45.4 45.4 Glucose Level 224 mg/dL (70-99) 153 mg/dL (70-99) Calcium Level 9.4 mg/dL (8.5-10.1) 9.2 mg/dL (8.5-10.1) White Blood Count 14.8 x10^3/uL (4.0-11.0) Red Blood Count 4.66 x10^6/uL (4.30-5.70) Hemoglobin 8.4 g/dL (13.0-17.5) Hematocrit 29.3 % (39.0-53.0) Mean Corpuscular Volume 63 fL (79-100) Mean Corpuscular Hemoglobin 18 pg (25-35) Mean Corpuscular Hemoglobin Concent 29 g/dL (31-37) Red Cell Distribution Width 22.9 % (11.5-14.5) Platelet Count 252 x10^3/uL (140-400) Neutrophils (%) (Auto) 87 % (31-73) Lymphocytes (%) (Auto) 10 % (24-48) Monocytes (%) (Auto) 3 % (0-9) Eosinophils (%) (Auto) 0 % (0-3) Basophils (%) (Auto) 0 % (0-3) Neutrophils # (Auto) 12.9 x10^3uL (1.8-7.7) Lymphocytes # (Auto) 1.5 x10^3/uL (1.0-4.8) Monocytes # (Auto) 0.4 x10^3/uL (0.0-1.1) Eosinophils # (Auto) 0.0 x10^3/uL (0.0-0.7) Basophils # (Auto) 0.0 x10^3/uL (0.0-0.2) Segmented Neutrophils % 94 % (35-66) Band Neutrophils % 1 % (0-9) Lymphocytes % 4 % (24-48) Monocytes % 1 % (0-10) Platelet Estimate Adequate (ADEQUATE) Large Platelets Present Giant Platelets Present Polychromasia Present Hypochromasia Present Poikilocytosis Present Anisocytosis Present Microcytosis Present Macrocytosis Present Ovalocytes Present Laboratory Tests Test 04/08/19 03:05 White Blood Count 14.8 x10^3/uL (4.0-11.0) Red Blood Count 4.66 x10^6/uL (4.30-5.70) Hemoglobin 8.4 g/dL (13.0-17.5) Hematocrit 29.3 % (39.0-53.0) Mean Corpuscular Volume 63 fL (79-100) Mean Corpuscular Hemoglobin 18 pg (25-35) Mean Corpuscular Hemoglobin Concent 29 g/dL (31-37) Red Cell Distribution Width 22.9 % (11.5-14.5) Platelet Count 252 x10^3/uL (140-400) Neutrophils (%) (Auto) 87 % (31-73) Lymphocytes (%) (Auto) 10 % (24-48) Monocytes (%) (Auto) 3 % (0-9) Eosinophils (%) (Auto) 0 % (0-3) Basophils (%) (Auto) 0 % (0-3) Neutrophils # (Auto) 12.9 x10^3uL (1.8-7.7) Lymphocytes # (Auto) 1.5 x10^3/uL (1.0-4.8) Monocytes # (Auto) 0.4 x10^3/uL (0.0-1.1) Eosinophils # (Auto) 0.0 x10^3/uL (0.0-0.7) Basophils # (Auto) 0.0 x10^3/uL (0.0-0.2) Segmented Neutrophils % 94 % (35-66) Band Neutrophils % 1 % (0-9) Lymphocytes % 4 % (24-48) Monocytes % 1 % (0-10) Platelet Estimate Adequate (ADEQUATE) Large Platelets Present Giant Platelets Present Polychromasia Present Hypochromasia Present Poikilocytosis Present Anisocytosis Present Microcytosis Present Macrocytosis Present Ovalocytes Present Sodium Level 137 mmol/L (136-145) Potassium Level 5.0 mmol/L (3.5-5.1) Chloride Level 104 mmol/L (98-107) Carbon Dioxide Level 26 mmol/L (21-32) Anion Gap 7 (6-14) Blood Urea Nitrogen 43 mg/dL (8-26) Creatinine 1.9 mg/dL (0.7-1.3) Estimated GFR (Cockcroft-Gault) 45.4 Glucose Level 153 mg/dL (70-99) Calcium Level 9.2 mg/dL (8.5-10.1) Medications Current Medications Aspirin (Nilson Aspirin) 325 mg 1X ONCE PO Last administered on 04/05/19 06:36; Start 04/05/19 at 07:00; Stop 04/05/19 at 07:01; Status DC Dexamethasone Sodium Phosphate (Decadron) 10 mg 1X ONCE IV Last administered on 04/05/19 06:36; Start 04/05/19 at 07:00; Stop 04/05/19 at 07:01; Status DC Albuterol/ Ipratropium (Duoneb) 3 ml 1X ONCE NEB Last administered on 04/05/19 06:43; Start 04/05/19 at 07:00; Stop 04/05/19 at 07:01; Status DC Fentanyl Citrate (Fentanyl 2ml Vial) 50 mcg 1X ONCE IV Last administered on 04/05/19 06:36; Start 04/05/19 at 07:00; Stop 04/05/19 at 07:01; Status DC Sodium Chloride 500 ml @ 500 mls/hr 1X ONCE IV Last administered on 04/05/19 06:35; Start 04/05/19 at 07:00; Stop 04/05/19 at 07:59; Status DC Ondansetron HCl (Zofran) 4 mg PRN Q8HRS PRN IV NAUSEA/VOMITING; Start 04/05/19 at 07:45; Stop 04/06/19 at 07:44; Status DC Fentanyl Citrate (Fentanyl 2ml Vial) 50 mcg PRN Q2HRS PRN IV PAIN Last administered on 04/05/19 19:12; Start 04/05/19 at 07:45; Stop 04/05/19 at 19:12; Status DC Albuterol/ Ipratropium (Duoneb) 3 ml RTQID NEB Last administered on 04/05/19 16:34; Start 04/05/19 at 08:00; Stop 04/06/19 at 07:59; Status DC Amlodipine Besylate (Norvasc) 10 mg BID PO Last administered on 04/08/19 09:31; Start 04/05/19 at 12:00 Carvedilol (Coreg) 25 mg BIDWMEALS PO Last administered on 04/08/19 09:31; Start 04/05/19 at 12:00 Clopidogrel Bisulfate (Plavix) 75 mg DAILY PO Last administered on 04/08/19 09:31; Start 04/05/19 at 12:00 Isosorbide Mononitrate (Imdur) 60 mg DAILY PO Last administered on 04/08/19 09:32; Start 04/05/19 at 12:00 Hydralazine HCl (Apresoline) 100 mg TID PO Last administered on 04/07/19 21:14; Start 04/05/19 at 14:00 Methylprednisolone Sodium Succinate (SOLU-Medrol 125MG VIAL) 80 mg Q8HRS IV Last administered on 04/07/19 05:36; Start 04/05/19 at 15:30; Stop 04/07/19 at 07:55; Status DC Fentanyl Citrate (Fentanyl 2ml Vial) 50 mcg PRN Q2HR PRN IV SEVERE PAIN Last administered on 04/08/19 09:38; Start 04/05/19 at 22:15 Albuterol/ Ipratropium (Duoneb) 3 ml RTQID NEB Last administered on 04/08/19 11:18; Start 04/06/19 at 12:00 Furosemide (Lasix) 40 mg DAILY IVP Last administered on 04/07/19 08:59; Start 04/06/19 at 11:00 Aspirin (Ecotrin) 81 mg DAILYWBKFT PO ; Start 04/06/19 at 11:00; Stop 04/06/19 at 11:00; Status DC Tramadol HCl (Ultram) 50 mg PRN Q6HRS PRN PO PAIN Last administered on 04/06/19 15:33; Start 04/06/19 at 15:30 Methylprednisolone Sodium Succinate (SOLU-Medrol 40MG VIAL) 40 mg Q8HRS IV Last administered on 04/08/19 05:40; Start 04/07/19 at 14:00 Active Scripts Active Hydrocodone-Acetamin 5-325 mg (Hydrocodone/Acetaminophen) 1 Each Tablet 1 Each PO PRN Q6HRS PRN 6 Days [Pantoprazole] 40 MG Tablet.dr 40 Mg PO BIDAC Ventolin Hfa Inhaler (Albuterol Sulfate) 18 Gm Hfa.aer.ad 2 Puff INH Q4HRS 20 Days Furosemide 40 Mg Tablet 40 Mg PO DAILY 30 Days Carvedilol (Carvedilol) 12.5 Mg Tablet 25 Mg PO BIDWMEALS 30 Days Isosorbide Mononitrate Er (Isosorbide Mononitrate) 30 Mg Tab.er.24h 60 Mg PO DAILY 30 Days Hydralazine Hcl 50 Mg Tablet 100 Mg PO TID 30 Days Lipitor (Atorvastatin Calcium) 20 Mg Tablet 1 Tab PO DAILY Fluticasone Propionate Nasal [place] (Fluticasone Propionate) 1 [place] 2 [place] NS DAILY Reported Clopidogrel (Clopidogrel Bisulfate) 75 Mg Tablet 1 Tab PO DAILY Amlodipine Besylate 10 Mg Tablet 10 Mg PO BID Vitals/I & O Vital Sign - Last 24 Hours 04/07/19 04/07/19 04/07/19 04/07/19 14:26 15:29 16:24 17:39 Temp 98.1 98.1 Pulse 75 75 83 Resp 20 B/P (MAP) 123/72 (89) 123/72 Pulse Ox 96 O2 Delivery Room Air Room Air 04/07/19 04/07/19 04/07/19 04/07/19 18:04 18:34 19:16 19:20 Temp 97.9 97.9 Pulse 78 Resp 18 B/P (MAP) 129/69 (89) Pulse Ox 99 O2 Delivery Nasal Cannula Room Air Nasal Cannula O2 Flow Rate 2.0 2.0 2.0 04/07/19 04/07/19 04/07/19 04/07/19 21:14 21:14 21:15 21:45 Pulse 78 78 Resp 20 20 B/P (MAP) 129/69 129/69 O2 Delivery Room Air Room Air 04/07/19 04/08/19 04/08/19 04/08/19 23:05 03:25 07:04 07:40 Temp 97.9 98.1 98.4 97.9 98.1 98.4 Pulse 71 75 74 Resp 18 20 20 B/P (MAP) 134/82 (99) 131/89 (103) 142/97 (112) Pulse Ox 99 97 97 O2 Delivery Nasal Cannula Nasal Cannula Nasal Cannula Room Air O2 Flow Rate 2.0 2.0 2.0 2.0 04/08/19 04/08/19 04/08/19 04/08/19 07:56 09:31 09:31 09:32 Pulse 74 74 74 B/P (MAP) 142/97 142/97 142/97 Pulse Ox 99 O2 Delivery Room Air 04/08/19 04/08/19 04/08/19 09:38 10:41 11:18 Temp 97.7 97.7 Pulse 79 Resp 20 B/P (MAP) 145/97 (113) Pulse Ox 98 98 O2 Delivery Room Air Nasal Cannula Room Air O2 Flow Rate 2.0 Intake and Output 04/07/19 04/07/19 04/08/19 15:00 23:00 07:00 Intake Total 1000 ml 480 ml 600 ml Output Total 1000 ml 600 ml 300 ml Balance 0 ml -120 ml 300 ml LAMIN BEARD MD April 08, 2019 13:29
--- NOTE | 2019-04-08 15:22 | PDOC ---
PULMONARY PROGRESS NOTES Subjective STILL SOA Vitals Vital Signs Date Time Temp Pulse Resp B/P (MAP) Pulse Ox O2 Delivery O2 Flow Rate FiO2 04/08/19 14:46 97.9 79 20 138/84 (102) 97 Nasal Cannula 2.0 97.9 ROS: No Nausea General: Alert, No acute distress Lungs: Crackles Cardiovascular: S1, S2 Abdomen: Soft, Non-tender Neuro Exam: Alert Extremities: No Edema Skin: Warm Labs Laboratory Tests Test 04/07/19 11:04 04/08/19 03:05 Sodium Level 137 mmol/L (136-145) 137 mmol/L (136-145) Potassium Level 4.7 mmol/L (3.5-5.1) 5.0 mmol/L (3.5-5.1) Chloride Level 103 mmol/L (98-107) 104 mmol/L (98-107) Carbon Dioxide Level 25 mmol/L (21-32) 26 mmol/L (21-32) Anion Gap 9 (6-14) 7 (6-14) Blood Urea Nitrogen 42 mg/dL (8-26) 43 mg/dL (8-26) Creatinine 1.9 mg/dL (0.7-1.3) 1.9 mg/dL (0.7-1.3) Estimated GFR (Cockcroft-Gault) 45.4 45.4 Glucose Level 224 mg/dL (70-99) 153 mg/dL (70-99) Calcium Level 9.4 mg/dL (8.5-10.1) 9.2 mg/dL (8.5-10.1) White Blood Count 14.8 x10^3/uL (4.0-11.0) Red Blood Count 4.66 x10^6/uL (4.30-5.70) Hemoglobin 8.4 g/dL (13.0-17.5) Hematocrit 29.3 % (39.0-53.0) Mean Corpuscular Volume 63 fL (79-100) Mean Corpuscular Hemoglobin 18 pg (25-35) Mean Corpuscular Hemoglobin Concent 29 g/dL (31-37) Red Cell Distribution Width 22.9 % (11.5-14.5) Platelet Count 252 x10^3/uL (140-400) Neutrophils (%) (Auto) 87 % (31-73) Lymphocytes (%) (Auto) 10 % (24-48) Monocytes (%) (Auto) 3 % (0-9) Eosinophils (%) (Auto) 0 % (0-3) Basophils (%) (Auto) 0 % (0-3) Neutrophils # (Auto) 12.9 x10^3uL (1.8-7.7) Lymphocytes # (Auto) 1.5 x10^3/uL (1.0-4.8) Monocytes # (Auto) 0.4 x10^3/uL (0.0-1.1) Eosinophils # (Auto) 0.0 x10^3/uL (0.0-0.7) Basophils # (Auto) 0.0 x10^3/uL (0.0-0.2) Segmented Neutrophils % 94 % (35-66) Band Neutrophils % 1 % (0-9) Lymphocytes % 4 % (24-48) Monocytes % 1 % (0-10) Platelet Estimate Adequate (ADEQUATE) Large Platelets Present Giant Platelets Present Polychromasia Present Hypochromasia Present Poikilocytosis Present Anisocytosis Present Microcytosis Present Macrocytosis Present Ovalocytes Present Laboratory Tests Test 04/08/19 03:05 White Blood Count 14.8 x10^3/uL (4.0-11.0) Red Blood Count 4.66 x10^6/uL (4.30-5.70) Hemoglobin 8.4 g/dL (13.0-17.5) Hematocrit 29.3 % (39.0-53.0) Mean Corpuscular Volume 63 fL (79-100) Mean Corpuscular Hemoglobin 18 pg (25-35) Mean Corpuscular Hemoglobin Concent 29 g/dL (31-37) Red Cell Distribution Width 22.9 % (11.5-14.5) Platelet Count 252 x10^3/uL (140-400) Neutrophils (%) (Auto) 87 % (31-73) Lymphocytes (%) (Auto) 10 % (24-48) Monocytes (%) (Auto) 3 % (0-9) Eosinophils (%) (Auto) 0 % (0-3) Basophils (%) (Auto) 0 % (0-3) Neutrophils # (Auto) 12.9 x10^3uL (1.8-7.7) Lymphocytes # (Auto) 1.5 x10^3/uL (1.0-4.8) Monocytes # (Auto) 0.4 x10^3/uL (0.0-1.1) Eosinophils # (Auto) 0.0 x10^3/uL (0.0-0.7) Basophils # (Auto) 0.0 x10^3/uL (0.0-0.2) Segmented Neutrophils % 94 % (35-66) Band Neutrophils % 1 % (0-9) Lymphocytes % 4 % (24-48) Monocytes % 1 % (0-10) Platelet Estimate Adequate (ADEQUATE) Large Platelets Present Giant Platelets Present Polychromasia Present Hypochromasia Present Poikilocytosis Present Anisocytosis Present Microcytosis Present Macrocytosis Present Ovalocytes Present Sodium Level 137 mmol/L (136-145) Potassium Level 5.0 mmol/L (3.5-5.1) Chloride Level 104 mmol/L (98-107) Carbon Dioxide Level 26 mmol/L (21-32) Anion Gap 7 (6-14) Blood Urea Nitrogen 43 mg/dL (8-26) Creatinine 1.9 mg/dL (0.7-1.3) Estimated GFR (Cockcroft-Gault) 45.4 Glucose Level 153 mg/dL (70-99) Calcium Level 9.2 mg/dL (8.5-10.1) Medications Active Scripts Medications Dose Route/Sig Max Daily Dose Days Date Category Hydrocodone-Acetamin 5-325 mg (Hydrocodone/Acetaminophen) 1 Each Tablet 1 Each PO PRN Q6HRS PRN 6 01/16/19 Rx Clopidogrel (Clopidogrel Bisulfate) 75 Mg Tablet 1 Tab PO DAILY 12/24/18 Reported [Pantoprazole] 40 MG Tablet.dr 40 Mg PO BIDAC 09/18/18 Rx Amlodipine Besylate 10 Mg Tablet 10 Mg PO BID 09/15/18 Reported Ventolin Hfa Inhaler (Albuterol Sulfate) 18 Gm Hfa.aer.ad 2 Puff INH Q4HRS 20 08/07/18 Rx Furosemide 40 Mg Tablet 40 Mg PO DAILY 30 07/13/18 Rx Carvedilol (Carvedilol) 12.5 Mg Tablet 25 Mg PO BIDWMEALS 30 07/13/18 Rx Isosorbide Mononitrate Er (Isosorbide Mononitrate) 30 Mg Tab.er.24h 60 Mg PO DAILY 30 07/13/18 Rx Hydralazine Hcl 50 Mg Tablet 100 Mg PO TID 30 07/13/18 Rx Lipitor (Atorvastatin Calcium) 20 Mg Tablet 1 Tab PO DAILY 07/04/15 Rx Fluticasone Propionate Nasal [place] (Fluticasone Propionate) 1 [place] 2 [place] NS DAILY 07/04/15 Rx Impression . IMPRESSION: 1. CP, per cardiology. 2. Coronary artery disease with previous stent placement and previous myocardial infarction. 3. Acute exacerbation of chronic obstructive pulmonary disease. 5. Tobacco dependence. 6. Abnormal x-ray. b lat infilt resolving, suspect chf 7. acute sys chf Plan . CATH TODAY I THINK THIS IS RELATED TO CARD WILL CONTINUE THE SAME 1. Suspect most the patient's symptoms are cardiac in origin. 2. change solumedrol to 40 q 8 hrs 3. Follow Cardiology input. 4. DVT and GI prophylaxis. 5. keep I<O, lasix per cardiology, monitor k, cr 6. may need RHC, C CHAY FELIX MD April 08, 2019 15:22
[2019-04-08] MEDS ORDERED: IODIXANOL 320 MG/ML 100 ML VIAL. ONE (17:01)
[2019-04-08] MEDS ORDERED: LIDOCAINE 1% PF 2 ML VIAL. ONE (17:01)
[2019-04-08] MEDS ORDERED: HEPARIN for IV BOLUS 10,000 UNIT/10 ML VIAL. ONE (17:03)
[2019-04-08] MEDS ORDERED: MIDAZOLAM HCL/PF 5 MG/5 ML VIAL. ONE (17:03)
[2019-04-08] MEDS ORDERED: fentaNYL PF VIAL 100 MCG/2 ML VIAL ONE (17:03)
[2019-04-08] MEDS ORDERED: NITROGLYCERIN 200 MCG/2 ML SYRINGE FOR CATH/VASC LAB. ONE (17:03)
[2019-04-08] MEDS ORDERED: VERAPAMIL 5 MG/2 ML VIAL. ONE (17:03)
[2019-04-08] MEDS ORDERED: MIDAZOLAM HCL/PF 5 MG/5 ML VIAL. IV ONE (17:45)
[2019-04-08] MEDS ORDERED: LIDOCAINE 1% PF 2 ML VIAL. INJ ONE (17:45)
[2019-04-08] MEDS ORDERED: IODIXANOL 320 MG/ML 100 ML VIAL. IART ONE (17:45)
[2019-04-08] MEDS ORDERED: fentaNYL PF VIAL 100 MCG/2 ML VIAL IV ONE (17:45)
[2019-04-08] MEDS ORDERED: HEPARIN for IV BOLUS 10,000 UNIT/10 ML VIAL. IART ONE (17:45)
[2019-04-08] MEDS ORDERED: VERAPAMIL 5 MG/2 ML VIAL. IART ONE (17:45)
[2019-04-08] MEDS ORDERED: NITROGLYCERIN 200 MCG/2 ML SYRINGE FOR CATH/VASC LAB. IART ONE (17:45)
[2019-04-09] MEDS: traMADol 50 MG TABLET PO PRN ×2 (00:26→08:41)
[2019-04-09 03:25] VITALS: BP 149/86
[2019-04-09] MEDS: methylPREDNISolone SOD SUCC PF 40 MG/ML VIAL. IV SCH ×2 (05:39→13:51)
[2019-04-09 07:00] VITALS: BP 137/80
[2019-04-09] MEDS: IPRATRPIUM/ALBUTEROL 0.5/2.5MG 3 ML NEBU. NEB SCH ×2 (08:29→12:49)
[2019-04-09] MEDS: FUROSEMIDE 40 MG/4 ML VIAL. IVP SCH (08:42)
[2019-04-09] MEDS: CARVEDILOL 12.5 MG TABLET. PO SCH (08:42)
[2019-04-09] MEDS: CLOPIDOGREL BISULFATE 75 MG TABLET PO SCH (08:42)
[2019-04-09] MEDS: amLODIPine BESYLATE 10 MG TABLET PO SCH (08:43)
[2019-04-09] MEDS: ISOSORBIDE MONONITRATE ER 30 MG TAB.ER.24H PO SCH (08:44)
--- NOTE | 2019-04-09 10:57 | CARD ---
MR#: [id number] Date of Study: 04/08/2019 Ordering Physician: AARTI TORRE, Referring Physician: KARLY MITCHELL Tech: RT Azalea (R) YANG APPROVED REPORT Technologist: RT Azalea (R) YANG Nurse: Anahi Lin R.N. Procedure(s) performed: CONTRAST 51 VISIPAQUE DOSE 50.1120 Gycms fluoro time 2.7 minutes moderate sedation 30 minutes C, Coronary angiography HISTORY The patient is a 53 year-old male with a history of : hypertension, dyslipidemia, cocaine abuse. INDICATION The indication(s) include : unstable angina , peripheral edema, dyspnea. [facility] Clinical Frailty Scale [facility] Clinical Frailty Scale: Vulnerable Heart Failure Heart Failure: Yes If Yes, Newly Diagnosed: No If Yes, HF Type: Diastolic Systolic If Yes, NYHA Class: Class II PROCEDURE NARRATIVE INFORMED CONSENT: After explaining the risks and benefits of the procedure and alternatives, informed consent was obtained. The patient was brought electively to the cardiac catheterization lab. A timeout was performed confi rming the patient's name, date of , procedure, and site of procedure. All necessary personnel w ere wearing the appropriate protective equipment and radiation monitor devices. (See nursing notes for medications administered). ACCESS: The right wrist was sterilely prepped and draped in the usual fashion. The right wrist was infiltrat ed with 1 mL of 2% lidocaine for subcutaneous anesthesia. A 6 [place] Terumo glide sheath was inserte d into the right radial artery without difficulty. CORONARY ANGIOGRAPHY: Right and left coronary angiography was performed using a 6Fr TIG 4.0 catheter and a JL5 catheter. Left ventricular end diastolic pressure was obtained with a pigtail catheter and pullback was perform ed after left ventriculography. All catheter exchanges and advancements were performed over a guidew gordy. CLOSURE: At case completion the right radial sheath was removed and a Terumo radial band was applied with 13 m l of air. COMPLICATIONS: The patient tolerated the procedure well and there were no immediate complications. FINDINGS: HEMODYNAMICS: LVEDP 24 mm Hg No gradient on LV to aortic pullback. AO: 128/78 LEFT VENTRICULOGRAM: Deferred due to renal insufficiency. CORONARY ANGIOGRAPHY: LM is a large caliber vessel with normal angiographic appearance. LAD is a large caliber vessel with a mid 50% stenosis. D1 is a moderate caliber vessel with a patent proximal stent. LCx is a large caliber non-dominant vessel with normal angiographic appearance. OM1 is a moderate caliber vessel with normal angiographic appearance. RCA is a large caliber dominant vessel with normal angiographic appearance. RPDA and RPL are large caliber vessels with normal angiographic appearance. *Overall appearance of the coronary arteries is suggestive of ectasia. Conclusion 1. Elevated left sided filling pressures (LVEDP 24) consistent with acute on chronic systolic and michael stolic HF 2. One vessel CAD with patent diagonal stent. 3. Cardiomyopathy out of proportion to CAD, likely related to cocaine use 4. Dilated ascending aorta Recommendations Aggressive medical therapy Consider outpt evaluation for ascending aorta. Signed by : Aarti Torre, Electronically Approved : 04/08/2019 18:25:30
[2019-04-09 11:00] VITALS: BP 132/75
--- NOTE | 2019-04-09 12:24 | PDOC ---
PULMONARY PROGRESS NOTES Subjective NO SOA Vitals Vital Signs Date Time Temp Pulse Resp B/P (MAP) Pulse Ox O2 Delivery O2 Flow Rate FiO2 04/09/19 11:00 97.8 69 18 132/75 (94) 96 Room Air 97.8 04/08/19 19:45 2.0 ROS: No Nausea General: Alert, No acute distress Lungs: Crackles Cardiovascular: S1, S2 Abdomen: Soft, Non-tender Neuro Exam: Alert Extremities: No Edema Skin: Warm Labs Laboratory Tests Test 04/08/19 03:05 White Blood Count 14.8 x10^3/uL (4.0-11.0) Red Blood Count 4.66 x10^6/uL (4.30-5.70) Hemoglobin 8.4 g/dL (13.0-17.5) Hematocrit 29.3 % (39.0-53.0) Mean Corpuscular Volume 63 fL (79-100) Mean Corpuscular Hemoglobin 18 pg (25-35) Mean Corpuscular Hemoglobin Concent 29 g/dL (31-37) Red Cell Distribution Width 22.9 % (11.5-14.5) Platelet Count 252 x10^3/uL (140-400) Neutrophils (%) (Auto) 87 % (31-73) Lymphocytes (%) (Auto) 10 % (24-48) Monocytes (%) (Auto) 3 % (0-9) Eosinophils (%) (Auto) 0 % (0-3) Basophils (%) (Auto) 0 % (0-3) Neutrophils # (Auto) 12.9 x10^3uL (1.8-7.7) Lymphocytes # (Auto) 1.5 x10^3/uL (1.0-4.8) Monocytes # (Auto) 0.4 x10^3/uL (0.0-1.1) Eosinophils # (Auto) 0.0 x10^3/uL (0.0-0.7) Basophils # (Auto) 0.0 x10^3/uL (0.0-0.2) Segmented Neutrophils % 94 % (35-66) Band Neutrophils % 1 % (0-9) Lymphocytes % 4 % (24-48) Monocytes % 1 % (0-10) Platelet Estimate Adequate (ADEQUATE) Large Platelets Present Giant Platelets Present Polychromasia Present Hypochromasia Present Poikilocytosis Present Anisocytosis Present Microcytosis Present Macrocytosis Present Ovalocytes Present Sodium Level 137 mmol/L (136-145) Potassium Level 5.0 mmol/L (3.5-5.1) Chloride Level 104 mmol/L (98-107) Carbon Dioxide Level 26 mmol/L (21-32) Anion Gap 7 (6-14) Blood Urea Nitrogen 43 mg/dL (8-26) Creatinine 1.9 mg/dL (0.7-1.3) Estimated GFR (Cockcroft-Gault) 45.4 Glucose Level 153 mg/dL (70-99) Calcium Level 9.2 mg/dL (8.5-10.1) Medications Active Scripts Medications Dose Route/Sig Max Daily Dose Days Date Category Hydrocodone-Acetamin 5-325 mg (Hydrocodone/Acetaminophen) 1 Each Tablet 1 Each PO PRN Q6HRS PRN 6 01/16/19 Rx Clopidogrel (Clopidogrel Bisulfate) 75 Mg Tablet 1 Tab PO DAILY 12/24/18 Reported [Pantoprazole] 40 MG Tablet.dr 40 Mg PO BIDAC 09/18/18 Rx Amlodipine Besylate 10 Mg Tablet 10 Mg PO BID 09/15/18 Reported Ventolin Hfa Inhaler (Albuterol Sulfate) 18 Gm Hfa.aer.ad 2 Puff INH Q4HRS 20 08/07/18 Rx Furosemide 40 Mg Tablet 40 Mg PO DAILY 30 07/13/18 Rx Carvedilol (Carvedilol) 12.5 Mg Tablet 25 Mg PO BIDWMEALS 30 07/13/18 Rx Isosorbide Mononitrate Er (Isosorbide Mononitrate) 30 Mg Tab.er.24h 60 Mg PO DAILY 30 07/13/18 Rx Hydralazine Hcl 50 Mg Tablet 100 Mg PO TID 30 07/13/18 Rx Lipitor (Atorvastatin Calcium) 20 Mg Tablet 1 Tab PO DAILY 07/04/15 Rx Fluticasone Propionate Nasal [place] (Fluticasone Propionate) 1 [place] 2 [place] NS DAILY 07/04/15 Rx Impression . IMPRESSION: 1. CP, per cardiology. 2. Coronary artery disease with previous stent placement and previous myocardial infarction. 3. Acute exacerbation of chronic obstructive pulmonary disease. 5. Tobacco dependence. 6. Abnormal x-ray. b lat infilt resolving, suspect chf 7. acute sys chf Plan . 1. Suspect most the patient's symptoms are cardiac in origin. 2. S/P CATH 3. Follow Cardiology input. 4. DVT and GI prophylaxis. 5. keep I<O, lasix per cardiology, monitor k, cr 6. Need to quit cig RILEY BURR MD April 09, 2019 12:24
[2019-04-09] MEDS ORDERED: OXYC1TAB7 PO (13:07)
[2019-04-09 13:51] VITALS: BP 132/75
--- NOTE | 2019-04-09 15:55 | NUR ---
Discharge Note: VEENA GARCIA Discharge instructions and discharge home medications reviewed with Patient and a copy given. All questions have been answered and understanding verbalized. The following instructions and handouts were given: Diet, hyper and hypotension, chest pain, follow up appointments, and medications Discontinued lines and drains: IV removed, no lines present. Patient discharged to home, left via cab with cab pass.
== END 2019-04-09 15:40 | disposition home or self-care (01) | DRG 286 ==
LOC: ER 06:08 → 2 SOUTH 07:38 → UNDODISIN 04-06 13:50
PROVIDERS: ADMIT Internal Medicine; ATTEND Internal Medicine
PROC: 4A023N7 Measurement of Cardiac Sampling and Pressure, Left Heart, Percutaneous Approach (ICD-10-PCS; principal; 2019-04-08)
PROC: B2111ZZ Fluoroscopy of Multiple Coronary Arteries using Low Osmolar Contrast (ICD-10-PCS; 2019-04-08)
DX: I13.0 Hypertensive heart and chronic kidney disease with heart failure and stage 1 through stage 4 chronic kidney disease, or unspecified chronic kidney disease (principal); I50.43 Acute on chronic combined systolic (congestive) and diastolic (congestive) heart failure; N17.9 Acute kidney failure, unspecified; J44.1 Chronic obstructive pulmonary disease with (acute) exacerbation; I42.9 Cardiomyopathy, unspecified; I25.119 Atherosclerotic heart disease of native coronary artery with unspecified angina pectoris; N18.9 Chronic kidney disease, unspecified; E78.00 Pure hypercholesterolemia, unspecified; E78.5 Hyperlipidemia, unspecified; E86.0 Dehydration; F14.10 Cocaine abuse, uncomplicated; F17.210 Nicotine dependence, cigarettes, uncomplicated; M19.90 Unspecified osteoarthritis, unspecified site; G47.30 Sleep apnea, unspecified; I25.2 Old myocardial infarction; Z82.49 Family history of ischemic heart disease and other diseases of the circulatory system; Z86.73 Personal history of transient ischemic attack (TIA), and cerebral infarction without residual deficits; Z91.19 Patient's noncompliance with other medical treatment and regimen; Z95.5 Presence of coronary angioplasty implant and graft; Z79.899 Other long term (current) drug therapy; Z88.8 Allergy status to other drugs, medicaments and biological substances; Z90.49 Acquired absence of other specified parts of digestive tract
CPT/HCPCS: 36415; 71045; 71046; 80048; 80053; 80307; 82553; 83690; 83735; 83880; 84484; 85007; 85025; 85379; 85610; 85730; 93005; 93458; 94640; 94760; 96361; 96374; 96375; 99152; 99153; C1769; C1892; J1100; J1644; J1940; J2250; J2920; J2930; J3010; J3490; J7040; J7620; Q9967; 99285-25

== ENCOUNTER 2019-05-22 19:12 | Emergency (ER) | payer SELFPAY ==
[~2019-05-22 19:12] MED LIST changes: +OXYC1TAB7 PO
== END 2019-05-22 19:34 | disposition left against medical advice (07) ==
LOC: ER 19:12
DX: R51 Headache (principal); Z53.21 Procedure and treatment not carried out due to patient leaving prior to being seen by health care provider

== ENCOUNTER 2019-08-18 09:03 | Inpatient (IN) | payer SELFPAY ==
[~2019-08-18] VITALS: Ht 182.9 cm; Wt 81.2 kg
[~2019-08-18 09:03] MED LIST changes: +LISI1TAB20 PO; -LISI1TAB7 PO
[2019-08-18 09:28] LABS: BASO % 1 % (0-3); EOS # 0.1 x10^3/uL (0.0-0.7); EOS % 2 % (0-3); HEMATOCRIT 41.3 % (39.0-53.0); HEMOGLOBIN 13.4 g/dL (13.0-17.5); LYMPH # 1.2 x10^3/uL (1.0-4.8); LYMPH % 18 % (24-48); MEAN CORPUSCULAR HEMOGLOBIN 24 pg (25-35); MEAN CORPUSCULAR HGB CONC 33 g/dL (31-37); MEAN CORPUSCULAR VOLUME 74 fL (79-100); MONO # 0.5 x10^3/uL (0.0-1.1); MONO % 7 % (0-9); NEUT # 4.6 x10^3/uL (1.8-7.7); NEUT % 72 % (31-73); PLATELET COUNT 268 x10^3/uL (140-400); RED BLOOD COUNT 5.62 x10^6/uL (4.30-5.70); RED CELL DISTRIBUTION WIDTH 21.2 % (11.5-14.5); WHITE BLOOD COUNT 6.4 x10^3/uL (4.0-11.0)
[2019-08-18 09:34] LABS: CALCIUM 10.2 mg/dL (8.5-10.1); CREATININE 1.9 mg/dL (0.7-1.3); GFR 45.3; POTASSIUM 4.1 mmol/L (3.5-5.1)
[2019-08-18 09:41] LABS: ALBUMIN 3.8 g/dL (3.4-5.0); MAGNESIUM 1.8 mg/dL (1.8-2.4); TOTAL BILIRUBIN 0.7 mg/dL (0.2-1.0); TOTAL PROTEIN 7.7 g/dL (6.4-8.2)
--- NOTE | 2019-08-18 09:59 | RAD ---
PORTABLE CHEST 1V History: Chest pain Comparison: None. Findings: No consolidation or pleural effusion. Normal heart size. Impression: 1. No acute cardiopulmonary process. Electronically signed by: Garrett Jimenez DO (08/18/2019 9:56 AM) [facility]
[2019-08-18 10:02] LABS: PROTHROMBIN TIME PATIENT 12.7 SEC (11.7-14.0)
[2019-08-18] MEDS: NITROGLYCERIN SUBLINGUAL 0.4 MG BOTTLE OF 25. SL PRN (10:02)
[2019-08-18] MEDS ORDERED: fentaNYL PF VIAL 100 MCG/2 ML VIAL IVP ONE (10:15)
[2019-08-18 10:19] LABS: PLT ESTIMATE ADEQUATE (ADEQUATE)
[2019-08-18 10:20] LABS: ANISOCYTOSIS PRESENT; HYPOCHROMIA PRESENT; MICROCYTOSIS PRESENT
--- NOTE | 2019-08-18 10:24 | PHYS DOC ---
Past Medical History Past Medical History: Angina, Asthma, CHF, COPD, CVA, High Cholesterol, Hypertension, MO, Renal Disease Additional Past Medical Histor: MURMUR, CATH WITH STENT, ULCER, SLEEP APNEA Past Surgical History: No Surgical History Additional Past Surgical Histo: cardiac cath with stent placement Alcohol Use: None Drug Use: None Adult General Chief Complaint Chief Complaint: CHEST PAIN HPI HPI Patient is a 54 year old male who presents EMS because of chest pain. Patient states he woke up at 6 AM because of substernal sharp and pressure pain with radiation to his back and bilateral shoulder and associated with shortness of breath, dizziness, palpitation. Patient states he had 2 episodes of syncope while he tried to shave his face and later on when he was walking at his kitchen. Patient rated his pain 10 over 10 that improved after he took nitroglycerin 3. Patient had previous hospitalization for chest pain and history of coronary artery disease. Review of Systems Review of Systems Constitutional: Denies fever or chills [] Eyes: Denies change in visual acuity, redness, or eye pain [] HENT: Denies nasal congestion or sore throat [] Respiratory: Denies cough or shortness of breath [] Cardiovascular: No additional information not addressed in HPI [] GI: Denies abdominal pain, nausea, vomiting, bloody stools or diarrhea [] : Denies dysuria or hematuria [] Musculoskeletal: Denies back pain or joint pain [] Integument: Denies rash or skin lesions [] Neurologic: Denies headache, focal weakness or sensory changes [] Endocrine: Denies polyuria or polydipsia [] All other systems were reviewed and found to be within normal limits, except as documented in this note. Current Medications Current Medications Current Medications Medications (Trade) Dose Ordered Sig/Deepa Start Time Stop Time Status Last Admin Dose Admin Nitroglycerin (Nitrostat) 0.4 mg PRN Q5MIN PRN 08/18/19 09:15 08/19/19 09:14 08/18/19 10:02 0.4 MG Allergies Allergies Allergies Coded Allergies Type Severity Reaction Last Updated Verified lisinopril Allergy Severe Swelling 08/09/18 Yes Physical Exam Physical Exam Constitutional: Well developed, well nourished, no acute distress, non-toxic appearance. [] HENT: Normocephalic, atraumatic, bilateral external ears normal, oropharynx moist, no oral exudates, nose normal. [] Eyes: PERRLA, EOMI, conjunctiva normal, no discharge. [] Neck: Normal range of motion, no tenderness, supple, no stridor. [] Cardiovascular:Heart rate regular rhythm, no murmur [] Lungs & Thorax: Bilateral breath sounds clear to auscultation [] Abdomen: Bowel sounds normal, soft, no tenderness, no masses, no pulsatile masses. [] Skin: Warm, dry, no erythema, no rash. [] Back: No tenderness, no CVA tenderness. [] Extremities: No tenderness, no cyanosis, no clubbing, ROM intact, no edema. [] Neurologic: Alert and oriented X 3, normal motor function, normal sensory fu nction, no focal deficits noted. [] Psychologic: Affect normal, judgement normal, mood normal. [] Current Patient Data Vital Signs Vital Signs Date Time Temp Pulse Resp B/P (MAP) Pulse Ox O2 Delivery O2 Flow Rate FiO2 08/18/19 09:25 98.5 70 20 189/121 (143) 96 Room Air 98.5 Lab Values Laboratory Tests Test 08/18/19 09:15 White Blood Count 6.4 x10^3/uL (4.0-11.0) Red Blood Count 5.62 x10^6/uL (4.30-5.70) Hemoglobin 13.4 g/dL (13.0-17.5) Hematocrit 41.3 % (39.0-53.0) Mean Corpuscular Volume 74 fL (79-100) L Mean Corpuscular Hemoglobin 24 pg (25-35) L Mean Corpuscular Hemoglobin Concent 33 g/dL (31-37) Red Cell Distribution Width 21.2 % (11.5-14.5) H Platelet Count 268 x10^3/uL (140-400) Neutrophils (%) (Auto) 72 % (31-73) Lymphocytes (%) (Auto) 18 % (24-48) L Monocytes (%) (Auto) 7 % (0-9) Eosinophils (%) (Auto) 2 % (0-3) Basophils (%) (Auto) 1 % (0-3) Neutrophils # (Auto) 4.6 x10^3/uL (1.8-7.7) Lymphocytes # (Auto) 1.2 x10^3/uL (1.0-4.8) Monocytes # (Auto) 0.5 x10^3/uL (0.0-1.1) Eosinophils # (Auto) 0.1 x10^3/uL (0.0-0.7) Basophils # (Auto) 0.0 x10^3/uL (0.0-0.2) Platelet Estimate Adequate (ADEQUATE) Hypochromasia Present Anisocytosis Present Microcytosis Present Prothrombin Time 12.7 SEC (11.7-14.0) Prothrombin Time INR 1.0 (0.8-1.1) Sodium Level 145 mmol/L (136-145) Potassium Level 4.1 mmol/L (3.5-5.1) Chloride Level 105 mmol/L (98-107) Carbon Dioxide Level 26 mmol/L (21-32) Anion Gap 14 (6-14) Blood Urea Nitrogen 24 mg/dL (8-26) Creatinine 1.9 mg/dL (0.7-1.3) H Estimated GFR (Cockcroft-Gault) 45.3 BUN/Creatinine Ratio 13 (6-20) Glucose Level 134 mg/dL (70-99) H Calcium Level 10.2 mg/dL (8.5-10.1) H Magnesium Level 1.8 mg/dL (1.8-2.4) Total Bilirubin 0.7 mg/dL (0.2-1.0) Aspartate Amino Transferase (AST) 59 U/L (15-37) H Alanine Aminotransferase (ALT) 41 U/L (16-63) Alkaline Phosphatase 66 U/L (46-116) Creatine Kinase 784 U/L (39-308) H Troponin I Quantitative 0.165 ng/mL (0.000-0.055) EI-Qjr-M-Type Natriuretic Peptide 1074 pg/mL (0-124) H Total Protein 7.7 g/dL (6.4-8.2) Albumin 3.8 g/dL (3.4-5.0) Albumin/Globulin Ratio 1.0 (1.0-1.7) Lipase 90 U/L (73-393) Laboratory Tests 08/18/19 09:15 Laboratory Tests 08/18/19 09:15 EKG EKG EKG interpreted by me. EKG at 0908 showed normal sinus rhythm at rate of 72, abnormal right superior axis deviation, left anterior fascicular block, left ventricular hypertrophy, poor R-wave progress in anteroseptal leads, no acute ST and T-wave elevation, Radiology/Procedures Radiology/Procedures [][facility] [address] [place] [address] IMAGING REPORT Signed PATIENT: KIRBY GARCIA ACCOUNT: [id number] : 1965 LOCATION: ER AGE: 54 SEX: M EXAM STATUS: REG ER ORD. PHYSICIAN: ALVARO SUAZO MD REASON: chest pain PROCEDURE: PORTABLE CHEST 1V PORTABLE CHEST 1V History: Chest pain Comparison: None. Findings: No consolidation or pleural effusion. Normal heart size. Impression: 1. No acute cardiopulmonary process. Electronically signed by: Garrett Jimenez DO (08/18/2019 9:56 AM) [facility] DICTATED and SIGNED BY: GARRETT JIMENEZ DO DATE: 08/18/19 0956 Course & Med Decision Making Course & Med Decision Making Pertinent Labs and Imaging studies reviewed. (See chart for details) Patient requiring admission for further evaluation and treatment. Discussed with Dr. Aguayo who is in agreement with admission. Discussed findings and plan with patient and family, who acknowledge understanding and agreement. Dragon Disclaimer Dragon Disclaimer This electronic medical record was generated, in whole or in part, using a voice recognition dictation system. Departure Departure Impression: Primary Impression: Acute chest pain Additional Impressions: Syncope Cocaine abuse Chronic renal insufficiency Hypercalcemia Elevated troponin I level CHF (congestive heart failure) Elevated CPK Disposition: ADMITTED INPATIENT (at 1017) Admitting Physician: EMILIO (Dr. Aguayo accepted admission at 1016) Condition: IMPROVED Referrals: NO PCP (PCP) The HEART Score for CP Pts HEART Score for Chest Pain: HEART Score for Chest Pain Response (Comments) Value History Moderately Suspicious 1 ECG Nonspecific Repolarizatio 1 Age >45 - < 65 1 Risk Factors >3 Risk Factors or Hx CAD 2 Troponin >1-<3x Normal Limit 1 Total 6 Risk Factors: Risk Factors: DM, Current or recent (<one month) smoker, HTN, HLP, family history of CAD, obesity. Risk Scores: Score 0 - 3: 2.5% MACE over next 6 weeks - Discharge Home Score 4 - 6: 20.3% MACE over next 6 weeks - Admit for Clinical Observation Score 7 - 10: 72.7% MACE over next 6 weeks - Early Invasive Strategies Problem Qualifiers Additional Impressions: Syncope Syncope type: unspecified Qualified Codes: R55 - Syncope and collapse Chronic renal insufficiency Chronic kidney disease stage: unspecified stage Qualified Codes: N18.9 - Chronic kidney disease, unspecified CHF (congestive heart failure) Heart failure type: unspecified Heart failure chronicity: unspecified Qu alified Codes: I50.9 - Heart failure, unspecified ALVARO SUAZO MD Aug 18, 2019 10:23
[2019-08-18 10:36] LABS: BARBITURATES NEG (NEG); BENZODIAZEPINES NEG (NEG); CANNABINOIDS NEG (NEG); COCAINE POS (NEG); METHADONE NEG (NEG); OPIATES NEG (NEG); PHENCYCLIDINE NEG (NEG)
[2019-08-18 10:37] LABS: AMPHETAMINE/METHAMPHETAMINE NEG (NEG)
[2019-08-18] MEDS ORDERED: hydrALAZINE 20 MG/ML VIAL. IVP ONE (10:45)
[2019-08-18 11:00] VITALS: BP 187/105
--- NOTE | 2019-08-18 11:18 | EKG ---
[facility] [address] [place] [address] Test Date: 2019-08-18 Test Time: 09:08:04 Pat Name: KIRBY GARCIA Department: Room: 244 1 Gender: M [employer]: : 1965 Requested By: ALVARO SUAZO Order Number: [id number] Reading MD: Sergio Caro MD Measurements Intervals [place] Rate: 72 P: 60 TN: 152 QRS: -98 QRSD: 102 T: 99 QT: 426 QTc: 468 Interpretive Statements SINUS RHYTHM CONSIDER LPFB CONSIDER LVH NON-SPECIFIC ST/T CHANGES Electronically Signed On 08-27-2019 9:57:22 CDT by Sergio Caro MD
--- NOTE | 2019-08-18 12:21 | PDOC1 ---
History and Physical Date of Admission Date of Admission DATE: 08/18/19 TIME: 12:21 History of Present Illness History of Present Illness Mr. Blanton, 53 yo male w/ PMHx CHF, PUD w/ H. pylori, pulm HTN who p/w chest pain and syncope. Acute left sided chest pain with pressure and dizziness past 2 days. He notes he was shaving to get ready for [employer] this morning and passed out, lost consciousness, called EMS. He does still have some dizziness. Has no acute ischemic EKG changes and a troponin of 0.165. Microcytosis. AST is 59. Patient was admitted to [facility] 7 times this past year for mostly cardiac related problems. Echocardiogram at that time showed an ejection fraction of 35% with moderate mitral regurgitation and a pulmonary artery pressure of greater than 50 (was intubated for respiratory failure with acute CHF at that time). VQ scan in September 2018 was low probability for PE, LE dopplers reveal no DVT. Patient's drug screen on his last admission on 12/21/18 was positive for cocaine. At that the patient reported that he was being worked up for possible amyloidosis at . Has a history of CAD s/p PCI/stent 06/2017 and recath at 12/2017 that showed patent diagonal stent with mild disease to LAD. 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 Patient has failed followup for further workup. He had high risk MPI in January 2019 here and negative VQ scan. Reports pain now worse, dizziness better. Denies trauma. Denies leg swelling or calf tenderness. Past Medical History Cardiovascular: CAD, CHF, HTN, Hyperlipidemia, Other Pulmonary: Asthma, COPD CENTRAL NERVOUS SYSTEM: Other GI: No pertinent hx Heme/Onc: No pertinent hx Hepatobiliary: No pertinent hx Psych: No pertinent hx Musculoskeletal: Osteoarthritis Rheumatologic: No pertinent hx Infectious disease: No pertinent hx Renal/: Chronic renal insuff Endocrine: No pertinent hx Past Surgical History Past Surgical History: Tonsillectomy, Other Family History Family History: High Cholestrol, Hypertension Social History Smoke: No ALCOHOL: none Drugs: Cocaine, Other Current Problem List Problem List Problems Medical Problems: (1) Acute chest pain Status: Acute Current Medications Current Medications Current Medications Nitroglycerin (Nitrostat) 0.4 mg PRN Q5MIN PRN SL CP RATING > 1/10 Last administered on 08/18/19at 10:02; Start 08/18/19 at 09:15; Stop 08/19/19 at 09:14 Fentanyl Citrate (Fentanyl 2ml Vial) 50 mcg 1X ONCE IVP Last administered on 08/18/19at 10:22; Start 08/18/19 at 10:15; Stop 08/18/19 at 10:16; Status DC Hydralazine HCl (Apresoline Inj) 10 mg 1X ONCE IVP Last administered on 08/18/19at 10:41; Start 08/18/19 at 10:45; Stop 08/18/19 at 10:46; Status DC Active Scripts Active Oxycodone-Acetaminophen 5-325 (Oxycodone Hcl/Acetaminophen) 1 Each Tablet 1 Each PO PRN Q6HRS PRN [Pantoprazole] 40 MG Tablet.dr 40 Mg PO BIDAC Ventolin Hfa Inhaler (Albuterol Sulfate) 18 Gm Hfa.aer.ad 2 Puff INH Q4HRS 20 Days Furosemide 40 Mg Tablet 40 Mg PO DAILY 30 Days Carvedilol (Carvedilol) 12.5 Mg Tablet 25 Mg PO BIDWMEALS 30 Days Isosorbide Mononitrate Er (Isosorbide Mononitrate) 30 Mg Tab.er.24h 60 Mg PO DAILY 30 Days Hydralazine Hcl 50 Mg Tablet 100 Mg PO TID 30 Days Lipitor (Atorvastatin Calcium) 20 Mg Tablet 1 Tab PO DAILY Fluticasone Propionate Nasal Shipman (Fluticasone Propionate) 1 Shipman Shipman 2 Shipman NS DAILY Reported Clopidogrel (Clopidogrel Bisulfate) 75 Mg Tablet 1 Tab PO DAILY Amlodipine Besylate 10 Mg Tablet 10 Mg PO BID Allergies Allergies: Coded Allergies: lisinopril (Verified Allergy, Severe, Swelling, 08/09/18) caused throat swelling ROS General: YES: Fatigue, Malaise; No: Chills, Night Sweats, Appetite, Other PSYCHOLOGICAL ROS: No: Anxiety, Behavioral Disorder, Concentration difficultie, Decreased libido, Depression, Disorientation, Hallucinations, Hostility, Irritablity, Memory difficulties, Mood Swings, Obsessive thoughts, Physical abuse, Sexual abuse, Sleep disturbances, Suicidal ideation, Other Eyes: No Blurry vision, No Decreased vision, No Double vision, No Dry eyes, No Excessive tearing, No Eye Pain, No Itchy Eyes, No Loss of vision, No Photophobia, No Scotomata, No Uses contacts, No Uses glasses, No Other HEENT: No: Heacaches, Visual Changes, Hearing change, Nasal congestion, Nasal discharge, Oral lesions, Sinus pain, Sore Throat, Epistaxis, Sneezing, Snoring, Tinnitus, Vertigo, Vocal changes, Other ALLERGY AND IMMUNOLOGY: No: Hives, Insect Bite Sensitivity, Itchy/Watery Eyes, Nasal Congestion, Post Nasal Drip, Seasonal Allergies, Other Hematological and Lymphatic: No: Bleeding Problems, Blood Clots, Blood Transfusions, Brusing, Night Sweats, Pallor, Swollen Lymph Nodes, Other ENDOCRINE: No: Breast Changes, Galactorrhea, Hair Pattern Changes, Hot Flashes, Malaise/lethargy, Mood Swings, Palpitations, Polydipsia/polyuria, Skin Changes, Temperature Intolerance, Unexpected Weight Changes, Other Breast: No New/Changing Breast Lumps, No Nipple changes, No Nipple discharge, No Other Respiratory: No: Cough, Hemoptysis, Orthopnea, Pleuritic Pain, Shortness of breath, SOB with excertion, Sputum Changes, Stridor, Tachypnea, Wheezing, Other Cardiovascular: yes Chest Pain; No Palpitations, No Orthopnea, No Paroxysmal Noc. Dyspnea, No Edema, No Lt Headedness, No Other Gastrointestinal: Yes Nausea; No Vomiting, No Abdominal Pain, No Diarrhea, No Constipation, No Melena, No Hematochezia, No Other Genitourinary: No Dysuria, No Frequency, No Incontinence, No Hematuria, No Retention, No Discharge, No Urgency, No Pain, No Flank Pain, No Other, No , No , No , No , No , No , No Musculoskeletal: Yes Gait Disturbance; No Joint Pain, No Joint Stiffness, No Joint Swelling, No Muscle Pain, No Muscular Weakness, No Pain In:, No Swelling In:, No Other Neurological: Yes Dizziness; No Behavorial Changes, No Bowel/Bladder ControlChng, No Confusion, No Gait Disturbance, No Headaches, No Impaired Coord/balance, No Memory Loss, No Numbness/Tingling, No Seizures, No Speech Problems, No Tremors, No Visual Changes, No Weakness, No Other Skin: No Dry Skin, No Eczema, No Hair Changes, No Lumps, No Mole Changes, No Mottling, No Nail Changes, No Pruritus, No Rash, No Skin Lesion Changes, No Other, No Acne Physical Exam General: Alert, Oriented X3, Cooperative, No acute distress HEENT: Atraumatic, PERRLA, EOMI, Mucous membr. moist/pink Lungs: Clear to auscultation, Normal air movement Heart: S1S2, RRR Abdomen: Normal bowel sounds, Soft, No tenderness, No hepatosplenomegaly, No masses Extremities: No clubbing, No cyanosis, No edema, Normal pulses, No tenderness/swelling Skin: No rashes, No breakdown, No significant lesion Neuro: Normal gait, Normal speech, Strength at 5/5 X4 ext, Normal tone, Sensation intact, Cranial nerves 3-12 NL, Reflexes 2+ Psych/Mental Status: Mental status NL, Mood NL Vitals Vitals Vital Signs Date Time Temp Pulse Resp B/P (MAP) Pulse Ox O2 Delivery O2 Flow Rate FiO2 08/18/19 12:13 Room Air 08/18/19 11:00 97.8 78 18 187/105 (132) 99 97.8 Labs Labs Laboratory Tests Test 08/18/19 09:15 08/18/19 10:18 White Blood Count 6.4 x10^3/uL (4.0-11.0) Red Blood Count 5.62 x10^6/uL (4.30-5.70) Hemoglobin 13.4 g/dL (13.0-17.5) Hematocrit 41.3 % (39.0-53.0) Mean Corpuscular Volume 74 fL (79-100) Mean Corpuscular Hemoglobin 24 pg (25-35) Mean Corpuscular Hemoglobin Concent 33 g/dL (31-37) Red Cell Distribution Width 21.2 % (11.5-14.5) Platelet Count 268 x10^3/uL (140-400) Neutrophils (%) (Auto) 72 % (31-73) Lymphocytes (%) (Auto) 18 % (24-48) Monocytes (%) (Auto) 7 % (0-9) Eosinophils (%) (Auto) 2 % (0-3) Basophils (%) (Auto) 1 % (0-3) Neutrophils # (Auto) 4.6 x10^3/uL (1.8-7.7) Lymphocytes # (Auto) 1.2 x10^3/uL (1.0-4.8) Monocytes # (Auto) 0.5 x10^3/uL (0.0-1.1) Eosinophils # (Auto) 0.1 x10^3/uL (0.0-0.7) Basophils # (Auto) 0.0 x10^3/uL (0.0-0.2) Platelet Estimate Adequate (ADEQUATE) Hypochromasia Present Anisocytosis Present Microcytosis Present Prothrombin Time 12.7 SEC (11.7-14.0) Prothromb Time International Ratio 1.0 (0.8-1.1) Sodium Level 145 mmol/L (136-145) Potassium Level 4.1 mmol/L (3.5-5.1) Chloride Level 105 mmol/L (98-107) Carbon Dioxide Level 26 mmol/L (21-32) Anion Gap 14 (6-14) Blood Urea Nitrogen 24 mg/dL (8-26) Creatinine 1.9 mg/dL (0.7-1.3) Estimated GFR (Cockcroft-Gault) 45.3 BUN/Creatinine Ratio 13 (6-20) Glucose Level 134 mg/dL (70-99) Calcium Level 10.2 mg/dL (8.5-10.1) Magnesium Level 1.8 mg/dL (1.8-2.4) Total Bilirubin 0.7 mg/dL (0.2-1.0) Aspartate Amino Transf (AST/SGOT) 59 U/L (15-37) Alanine Aminotransferase (ALT/SGPT) 41 U/L (16-63) Alkaline Phosphatase 66 U/L (46-116) Creatine Kinase 784 U/L (39-308) Troponin I Quantitative 0.165 ng/mL (0.000-0.055) VM-Cdk-V-Type Natriuretic Peptide 1074 pg/mL (0-124) Total Protein 7.7 g/dL (6.4-8.2) Albumin 3.8 g/dL (3.4-5.0) Albumin/Globulin Ratio 1.0 (1.0-1.7) Lipase 90 U/L (73-393) Urine Opiates Screen Neg (NEG) Urine Methadone Screen Neg (NEG) Urine Barbiturates Neg (NEG) Urine Phencyclidine Screen Neg (NEG) Urine Amphetamine/Methamphetamine Neg (NEG) Urine Benzodiazepines Screen Neg (NEG) Urine Cocaine Screen Pos (NEG) Urine Cannabinoids Screen Neg (NEG) Urine Ethyl Alcohol Neg (NEG) Laboratory Tests Test 08/18/19 09:15 08/18/19 10:18 White Blood Count 6.4 x10^3/uL (4.0-11.0) Red Blood Count 5.62 x10^6/uL (4.30-5.70) Hemoglobin 13.4 g/dL (13.0-17.5) Hematocrit 41.3 % (39.0-53.0) Mean Corpuscular Volume 74 fL (79-100) Mean Corpuscular Hemoglobin 24 pg (25-35) Mean Corpuscular Hemoglobin Concent 33 g/dL (31-37) Red Cell Distribution Width 21.2 % (11.5-14.5) Platelet Count 268 x10^3/uL (140-400) Neutrophils (%) (Auto) 72 % (31-73) Lymphocytes (%) (Auto) 18 % (24-48) Monocytes (%) (Auto) 7 % (0-9) Eosinophils (%) (Auto) 2 % (0-3) Basophils (%) (Auto) 1 % (0-3) Neutrophils # (Auto) 4.6 x10^3/uL (1.8-7.7) Lymphocytes # (Auto) 1.2 x10^3/uL (1.0-4.8) Monocytes # (Auto) 0.5 x10^3/uL (0.0-1.1) Eosinophils # (Auto) 0.1 x10^3/uL (0.0-0.7) Basophils # (Auto) 0.0 x10^3/uL (0.0-0.2) Platelet Estimate Adequate (ADEQUATE) Hypochromasia Present Anisocytosis Present Microcytosis Present Prothrombin Time 12.7 SEC (11.7-14.0) Prothromb Time International Ratio 1.0 (0.8-1.1) Sodium Level 145 mmol/L (136-145) Potassium Level 4.1 mmol/L (3.5-5.1) Chloride Level 105 mmol/L (98-107) Carbon Dioxide Level 26 mmol/L (21-32) Anion Gap 14 (6-14) Blood Urea Nitrogen 24 mg/dL (8-26) Creatinine 1.9 mg/dL (0.7-1.3) Estimated GFR (Cockcroft-Gault) 45.3 BUN/Creatinine Ratio 13 (6-20) Glucose Level 134 mg/dL (70-99) Calcium Level 10.2 mg/dL (8.5-10.1) Magnesium Level 1.8 mg/dL (1.8-2.4) Total Bilirubin 0.7 mg/dL (0.2-1.0) Aspartate Amino Transf (AST/SGOT) 59 U/L (15-37) Alanine Aminotransferase (ALT/SGPT) 41 U/L (16-63) Alkaline Phosphatase 66 U/L (46-116) Creatine Kinase 784 U/L (39-308) Troponin I Quantitative 0.165 ng/mL (0.000-0.055) GN-Yot-Q-Type Natriuretic Peptide 1074 pg/mL (0-124) Total Protein 7.7 g/dL (6.4-8.2) Albumin 3.8 g/dL (3.4-5.0) Albumin/Globulin Ratio 1.0 (1.0-1.7) Lipase 90 U/L (73-393) Urine Opiates Screen Neg (NEG) Urine Methadone Screen Neg (NEG) Urine Barbiturates Neg (NEG) Urine Phencyclidine Screen Neg (NEG) Urine Amphetamine/Methamphetamine Neg (NEG) Urine Benzodiazepines Screen Neg (NEG) Urine Cocaine Screen Pos (NEG) Urine Cannabinoids Screen Neg (NEG) Urine Ethyl Alcohol Neg (NEG) Images Images CXR - No acute cardiopulmonary process. January 2019 - MPI - 1. No evidence of stress induced EKG changes. 2. Large lateral wall defect with mild estephanie-infarct reversibility. 3. Severe LV dysfunction. EF 31% 4. High risk study. VTE Prophylaxis Ordered VTE Prophylaxis Devices: Yes VTE Pharmacological Prophylaxi: Yes Assessment/Plan Assessment/Plan A/P: Syncope - possibly cardiogenic given his low EF. Will get CT head, tele, carotid dopplers Chest pain - likely angina. 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 FEN - Cardiac diet PPX - Lovenox FULL CODE Dispo - CVC for syncope in high cardiac risk patient SAIMA BEE MD Aug 18, 2019 12:21
[2019-08-18] MEDS ORDERED: amLODIPine BESYLATE 5 MG TABLET PO ONE (13:00)
[2019-08-18 13:19] VITALS: BP 171/104
[2019-08-18 15:00] VITALS: BP 145/84
[2019-08-18] MEDS ORDERED: NON FORMULARY ITEM (Albuterol Sulfate (Ventolin Hfa Inhaler) 2 PUFF) INH SCH (16:00)
[2019-08-18] MEDS: CLOPIDOGREL BISULFATE 75 MG TABLET PO SCH (16:00)
[2019-08-18] MEDS: FUROSEMIDE 40 MG TABLET. PO SCH (16:00)
[2019-08-18] MEDS: ISOSORBIDE MONONITRATE ER 30 MG TAB.ER.24H PO SCH (16:00)
[2019-08-18] MEDS: ENOXAPARIN 40 MG/0.4 ML SYRINGE. SQ SCH (16:00)
[2019-08-18] MEDS ORDERED: MORPHINE SULFATE 2 MG/ML VIAL. IV PRN (16:00)
[2019-08-18] MEDS: ALBUTEROL SULFATE 2.5 MG/3 ML NEBU. NEB SCH ×3 (16:32→23:45)
[2019-08-18] MEDS: oxyCODONE/APAP 5/325 1 TAB TABLET PO PRN ×2 (16:37→22:36)
[2019-08-18] MEDS: PANTOPRAZOLE 40 MG TABLET.DR. PO SCH (16:37)
[2019-08-18] MEDS: CARVEDILOL 12.5 MG TABLET. PO SCH (16:38)
[2019-08-18 19:52] VITALS: BP 139/94
--- NOTE | 2019-08-18 20:10 | RAD ---
Exam: VENOUS LOWER EXT BILATERAL Indication: Lower extremity pain Technique: Color-flow and pulsed wave duplex ultrasound with compression of venous structures of the bilateral lower extremities. Comparison: None Available. Findings: Duplex ultrasound with compression of the deep venous structures of the bilateral lower extremities from the common femoral vein through the popliteal vein is negative for DVT. The posterior tibial and peroneal veins are segmentally visualized and patent where seen. Normal venous waveforms and augmentation are noted throughout. Impression: No evidence for DVT in the bilateral lower extremities. Electronically signed by: Davey Silva MD (08/18/2019 8:07 PM) [facility]
[2019-08-18] MEDS: ATORVASTATIN CALCIUM 20 MG TABLET PO SCH (21:19)
[2019-08-18] MEDS: amLODIPine BESYLATE 10 MG TABLET PO SCH (21:19)
[2019-08-18 22:23] VITALS: BP 109/77
[2019-08-19] VITALS (9 sets, daily range): BP systolic 105–131; BP diastolic 61–85
[2019-08-19] MEDS: ALBUTEROL SULFATE 2.5 MG/3 ML NEBU. NEB SCH ×6 (04:00→23:39)
--- NOTE | 2019-08-19 07:15 | RAD ---
EXAM: CT HEAD WITHOUT CONTRAST. HISTORY: Syncope. TECHNIQUE: Computed tomography of the head was performed without intravenous contrast. COMPARISON: None. FINDINGS: There is no intracranial hemorrhage. There is a chronic lacunar infarct in the left basal ganglia. There is mild chronic microangiopathic white matter change elsewhere. The ventricles are normal in size and position. The visualized paranasal sinuses appear clear. The orbits are unremarkable. The temporal bones are unremarkable. The calvarium reveals no suspicious lesions. IMPRESSION: 1. No acute intracranial findings. 2. Mild chronic microangiopathic white matter change. *One or more of the following individualized dose reduction techniques were utilized for this examination: 1. Automated exposure control. 2. Adjustment of the mA and/or kV according to patient size. 3. Use of iterative reconstruction technique. Electronically signed by: Helena Alex MD (08/19/2019 7:13 AM) [facility]
--- NOTE | 2019-08-19 07:32 | RAD ---
EXAM: CAROTID DOPPLER SONOGRAM. HISTORY: Syncope. Hypertension. TECHNIQUE: Mohan scale and color Doppler sonographic evaluation of the neck with spectral waveform analysis was performed and static images are submitted for review. FINDINGS: RIGHT: The peak systolic velocity within the common carotid artery is 94 cm/sec. The peak systolic velocity within the internal carotid artery is 89 cm/sec and the end diastolic velocity within the internal carotid artery is 27 cm/sec. The ICA/CCA ratio is 1.0. Grayscale images demonstrate no grayscale stenosis. LEFT: The peak systolic velocity within the common carotid artery is 111 cm/sec. The peak systolic velocity within the internal carotid artery is 101 cm/sec and the end diastolic velocity within the internal carotid artery is 48 cm/sec. The ICA/CCA ratio is 0.8. Grayscale images demonstrate no grayscale stenosis. There is antegrade flow within both vertebral arteries. IMPRESSION: 1. Elevated end-diastolic velocity within the left distal internal carotid artery is not associated with elevated peak systolic velocity or clear grayscale stenosis. No clear hemodynamically significant stenosis. PQRS Compliance Statement - Stenosis calculations for CT, MR and conventional angiography are based upon measurement of the distal ICA diameter in accordance with the NASCET methodology. Stenosis calculations for carotid ultrasound studies are derived from validated velocity criteria which are known to correlate with the NASCET methodology. Electronically signed by: Helena Alex MD (08/19/2019 7:29 AM) [facility]
[2019-08-19] MEDS: NITROGLYCERIN SUBLINGUAL 0.4 MG BOTTLE OF 25. SL PRN (08:12)
[2019-08-19] MEDS: CARVEDILOL 12.5 MG TABLET. PO SCH ×2 (08:14→17:24)
[2019-08-19] MEDS: CLOPIDOGREL BISULFATE 75 MG TABLET PO SCH (08:15)
[2019-08-19] MEDS: ISOSORBIDE MONONITRATE ER 30 MG TAB.ER.24H PO SCH (08:15)
[2019-08-19] MEDS: amLODIPine BESYLATE 10 MG TABLET PO SCH ×2 (08:15→20:39)
[2019-08-19] MEDS: PANTOPRAZOLE 40 MG TABLET.DR. PO SCH ×2 (08:16→16:16)
[2019-08-19] MEDS: FUROSEMIDE 40 MG TABLET. PO SCH (08:16)
[2019-08-19] MEDS: FLUTICASONE 50MCG/NASAL SPRAY 16GM BOTTLE. NS SCH (08:17)
[2019-08-19 09:43] LABS: CHOLESTEROL/HDL RATIO 2.6
--- NOTE | 2019-08-19 11:15 | PDOC2 ---
SHRAVAN WOOD STRAIGHT CUTTER 08/19/19 1115: CARDIAC CONSULT DATE OF CONSULT Date of Consult DATE: 08/19/19 TIME: 11:03 REASON FOR CONSULT Reason for Consult: Chest pain REFERRING PHYSICIAN Referring Physician: Dr. Aguayo SOURCE Source: Chart review, Patient HISTORY OF PRESENT ILLNESS HISTORY OF PRESENT ILLNESS This is a 54 yo male who presented secondary to shortness of breath and syncopal episode x2. Patient reports he woke up yesterday morning with pain in his central chest. Describes as pressure. Was in the bathroom getting ready for buddhism. Began feeling significantly dizzy. Had subsequent syncopal episode. Got off the floor and headed back to his bedroom to get his phone. Continue to be dizzy. Found himself down on two knees again. Thinks he may have passed out again. Was able to get to his phone and dial 911. Denies any diaphoresis, shortness of breath. Was slightly nauseated. Does report ringing in his right ear for the last couple of days. Was dizzy again this morning sitting up on the edge of the bed. No associated chest pain. No acute events noted on telemetry. PAST MEDICAL HISTORY Past Medical History Cardiovascular: CAD, CHF, HTN, Hyperlipidemia, Other (possible amyloidosis), chronic troponin elevation Pulmonary: Asthma, COPD CENTRAL NERVOUS SYSTEM: None pertinent GI: /DU via EGD, GI bleed via EGD in 09/2018 Heme/Onc: No pertinent hx Hepatobiliary: No pertinent hx Psych: No pertinent hx Musculoskeletal: Osteoarthritis Rheumatologic: No pertinent hx Infectious disease: No pertinent hx Renal/: Chronic renal insuff Endocrine: No pertinent hx PAST SURGICAL HISTORY Past Surgical History Tonsillectomy, Other (coronary stent.) FAMILY HISTORY Family History hypertension SOCIAL HISTORY Social History <1 pack per day ALCOHOL: none Drugs: cocaine Lives: with Family CURRENT MEDICATIONS CURRENT MEDICATIONS Current Medications Medications (Trade) Dose Ordered Sig/Deepa Route PRN Reason Start Time Stop Time Status Last Admin Dose Admin Amlodipine Besylate (Norvasc) 5 mg 1X ONCE PO 08/18/19 13:00 08/18/19 13:01 DC 08/18/19 13:15 Amlodipine Besylate (Norvasc) 10 mg BID PO 08/18/19 21:00 08/19/19 08:15 Atorvastatin Calcium (Lipitor) 20 mg QHS PO 08/18/19 21:00 08/18/19 21:19 Carvedilol (Coreg) 25 mg BIDWMEALS PO 08/18/19 17:00 08/19/19 08:14 Clopidogrel Bisulfate (Plavix) 75 mg DAILY PO 08/18/19 16:00 08/19/19 08:15 Fluticasone Propionate (Flonase) 2 spray DAILY NS 08/19/19 09:00 08/19/19 08:17 Furosemide (Lasix) 40 mg DAILY PO 08/18/19 16:00 08/19/19 08:16 Hydralazine HCl (Apresoline) 100 mg TID PO 08/18/19 16:00 08/19/19 09:47 Isosorbide Mononitrate (Imdur) 60 mg DAILY PO 08/18/19 16:00 08/19/19 08:15 Oxycodone/ Acetaminophen (Percocet 5/325) 1 tab PRN Q6HRS PRN PO MODERATE PAIN 08/18/19 16:00 08/18/19 22:36 Pantoprazole Sodium (Protonix) 40 mg BIDAC PO 08/18/19 16:30 08/19/19 08:16 Albuterol Sulfate (Ventolin Neb Soln) 2.5 mg Q4HRS NEB 08/18/19 16:15 08/19/19 07:55 ALLERGIES ALLERGIES: Coded Allergies: lisinopril (Verified Allergy, Severe, Swelling, 08/09/18) caused throat swelling ROS Review of System 14 point ROS conducted with pertinent positives noted above in HPI. PHYSICAL EXAM PHYSICAL EXAM General: Alert, Oriented X3, Cooperative, No acute distress HEENT: Atraumatic, Mucous membr. moist/pink Lungs: CTA, diminished bases Heart: Regular rate (SR), Other (3/6 systolic murmur to LLS border) Abdomen: Soft, No tenderness Extremities: No cyanosis, No edema Skin: No breakdown, No significant lesion Neuro: Normal speech, Sensation intact Psych/Mental Status: Mental status NL, Mood NL MUSCULOSKELETAL: Osteoarthritic changes both hands VITALS/I&O VITALS/I&O: Vital Signs Date Time Temp Pulse Resp B/P (MAP) Pulse Ox O2 Delivery O2 Flow Rate FiO2 08/19/19 09:47 69 104/65 08/19/19 08:00 Room Air 08/19/19 07:56 100 08/19/19 07:00 98.4 20 98.4 I & O 08/18/19 08/18/19 08/19/19 15:00 23:00 07:00 Intake Total 200 ml 740 ml 1260 ml Output Total 600 ml Balance 200 ml 740 ml 660 ml LABS Lab: Laboratory Tests Test 08/19/19 09:00 Troponin I Quantitative 0.161 ng/mL (0.000-0.055) Triglycerides Level 31 mg/dL (0-150) Cholesterol Level 150 mg/dL (0-200) LDL Cholesterol, Calculated 87 mg/dL (0-100) VLDL Cholesterol, Calculated 6 mg/dL (0-40) Non-HDL Cholesterol Calculated 93 mg/dL (0-129) HDL Cholesterol 57 mg/dL (40-60) Cholesterol/HDL Ratio 2.6 ECHOCARDIOGRAM ECHOCARDIOGRAM <Conclusion> The Left Ventricle is borderline dilated. The systolic function is moderately impaired. The Ejection Fraction is 35%. There is global hypokinesis of the left ventricle. There is moderate concentric left ventricular hypertrophy. There is no significant aortic valvular stenosis. Doppler and Color Flow revealed mild aortic regurgitation. Doppler and Color-flow revealed moderate mitral regurgitation. Doppler and Color Flow revealed mild tricuspid regurgitation. There is moderate pulmonary hypertension. The PA pressure is > 50 mmHg. DATE: 12/21/18 1557 STRESS TEST STRESS TEST Conclusion 1. No evidence of stress induced EKG changes. 2. Large lateral wall defect with mild estephanie-infarct reversibility. 3. Severe LV dysfunction. EF 31% 4. High risk study. DATE: 01/15/19 1323 HEART CATH HEART CATH CORONARY ANGIOGRAPHY: LM is a large caliber vessel with normal angiographic appearance. LAD is a large caliber vessel with a mid 50% stenosis. D1 is a moderate caliber vessel with a patent proximal stent. LCx is a large caliber non-dominant vessel with normal angiographic appearance. OM1 is a moderate caliber vessel with normal angiographic appearance. RCA is a large caliber dominant vessel with normal angiographic appearance. RPDA and RPL are large caliber vessels with normal angiographic appearance. *Overall appearance of the coronary arteries is suggestive of ectasia. Conclusion 1. Elevated left sided filling pressures (LVEDP 24) consistent with acute on chronic systolic and diastolic HF 2. One vessel CAD with patent diagonal stent. 3. Cardiomyopathy out of proportion to CAD, likely related to cocaine use 4. Dilated ascending aorta Recommendations Aggressive medical therapy Consider outpt evaluation for ascending aorta. DATE: 04/08/191824 ASSESSMENT/PLAN ASSESSMENT/PLAN 1. Chest pain, atypical 2. Syncopal episode; c/o dizziness this am- no acute event on tele 3. Mild troponin elevation; peak 0.165. H/o chronic troponin elevation; multifactorial. ranging from 0.1 to 0.3 4. CAD: PCI/stent placement at in 2016. Cath 03/2019 with patent diagonal stent as noted above. 5. Accelerated HTN; now controlled 6. Chronic systolic/diastolic CHF 7. Mixed NICM/ICM CHF: EF 35%. Clinically compensated 8. COPD with moderate pulmonary HTN with continued tobaccoism 9. Hyperlipidemia; statin 10. 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 Bergeron at due to lack of health ins. 11. CKD: Cr stable 12. Hx of PUD/GI bleed: 09/2018 13. Hx of substance abuse; UDS +cocaine 14. Noncompliance Recommendations Orthostatics Monitor tele. Unfortunately unable to have outpatient monitor due to lack of insurance Secondary prevention measures Discussed cocaine and tobacco cessation Allergy to ACEi, continue with current BP regimen. Amyloidosis w/u as outpt at Has applied for disability AARTI TORRE MD 08/20/19 0942: CARDIAC CONSULT ASSESSMENT/PLAN ASSESSMENT/PLAN Late entry for 08/19/2019 Pt. seen and examined. Agree with above [employer] note. SHRAVAN WOOD APRN Aug 19, 2019 11:15 AARTI TORRE MD Aug 20, 2019 09:42
--- NOTE | 2019-08-19 13:44 | PDOC ---
PROGRESS NOTES Chief Complaint Chief Complaint Syncope - w. orthostasis, poss CHF, Chest pain - angina, have r/o ACS Acute dyspnea - Acute on chronic exacerbation of combined systolic and diastolic heart failure - History of cardiac amyloidosis suspected - has f/u at [facility] cocaine and tobacco use disorder Uncontrolled hypertension - Coronary artery disease with previous percutaneous coronary intervention at [facility] - high risk stress test this past january Secondary pulmonary hypertension - Chronic kidney disease stage 3 - stable currently. History of Present Illness History of Present Illness still weakness when standing needs echo done bubble study planned he has no n.v.d Vitals Vitals Vital Signs Date Time Temp Pulse Resp B/P (MAP) Pulse Ox O2 Delivery O2 Flow Rate FiO2 08/19/19 11:42 100 Room Air 08/19/19 11:00 98.1 67 16 115/67 (83) 98.1 Physical Exam Physical Exam tele reg, rate 80 General: Alert, Oriented X3, Cooperative, No acute distress Heart: Regular rate, No murmurs Lungs: Crackles Abdomen: Normal bowel sounds, Soft, No tenderness, No hepatosplenomegaly, No masses Extremities: No clubbing, No cyanosis, No edema, Normal pulses, No tenderness/swelling Skin: No rashes, No breakdown, No significant lesion Labs LABS Laboratory Tests Test 08/19/19 09:00 Troponin I Quantitative 0.161 ng/mL (0.000-0.055) Triglycerides Level 31 mg/dL (0-150) Cholesterol Level 150 mg/dL (0-200) LDL Cholesterol, Calculated 87 mg/dL (0-100) VLDL Cholesterol, Calculated 6 mg/dL (0-40) Non-HDL Cholesterol Calculated 93 mg/dL (0-129) HDL Cholesterol 57 mg/dL (40-60) Cholesterol/HDL Ratio 2.6 Assessment and Plan Assessmemt and Plan Problems Medical Problems: (1) Acute chest pain Status: Acute (2) CHF (congestive heart failure) Status: Acute (3) Cocaine abuse Status: Acute (4) Elevated CPK Status: Acute (5) Elevated troponin I level Status: Acute (6) Hypercalcemia Status: Acute (7) Syncope Status: Acute Comment Review of Relevant I have reviewed the following items coleman (where applicable) has been applied. Labs Laboratory Tests Test 08/18/19 09:15 08/18/19 10:18 08/19/19 09:00 White Blood Count 6.4 x10^3/uL (4.0-11.0) Red Blood Count 5.62 x10^6/uL (4.30-5.70) Hemoglobin 13.4 g/dL (13.0-17.5) Hematocrit 41.3 % (39.0-53.0) Mean Corpuscular Volume 74 fL (79-100) Mean Corpuscular Hemoglobin 24 pg (25-35) Mean Corpuscular Hemoglobin Concent 33 g/dL (31-37) Red Cell Distribution Width 21.2 % (11.5-14.5) Platelet Count 268 x10^3/uL (140-400) Neutrophils (%) (Auto) 72 % (31-73) Lymphocytes (%) (Auto) 18 % (24-48) Monocytes (%) (Auto) 7 % (0-9) Eosinophils (%) (Auto) 2 % (0-3) Basophils (%) (Auto) 1 % (0-3) Neutrophils # (Auto) 4.6 x10^3/uL (1.8-7.7) Lymphocytes # (Auto) 1.2 x10^3/uL (1.0-4.8) Monocytes # (Auto) 0.5 x10^3/uL (0.0-1.1) Eosinophils # (Auto) 0.1 x10^3/uL (0.0-0.7) Basophils # (Auto) 0.0 x10^3/uL (0.0-0.2) Platelet Estimate Adequate (ADEQUATE) Hypochromasia Present Anisocytosis Present Microcytosis Present Prothrombin Time 12.7 SEC (11.7-14.0) Prothromb Time International Ratio 1.0 (0.8-1.1) Sodium Level 145 mmol/L (136-145) Potassium Level 4.1 mmol/L (3.5-5.1) Chloride Level 105 mmol/L (98-107) Carbon Dioxide Level 26 mmol/L (21-32) Anion Gap 14 (6-14) Blood Urea Nitrogen 24 mg/dL (8-26) Creatinine 1.9 mg/dL (0.7-1.3) Estimated GFR (Cockcroft-Gault) 45.3 BUN/Creatinine Ratio 13 (6-20) Glucose Level 134 mg/dL (70-99) Calcium Level 10.2 mg/dL (8.5-10.1) Magnesium Level 1.8 mg/dL (1.8-2.4) Total Bilirubin 0.7 mg/dL (0.2-1.0) Aspartate Amino Transf (AST/SGOT) 59 U/L (15-37) Alanine Aminotransferase (ALT/SGPT) 41 U/L (16-63) Alkaline Phosphatase 66 U/L (46-116) Creatine Kinase 784 U/L (39-308) Troponin I Quantitative 0.165 ng/mL (0.000-0.055) 0.161 ng/mL (0.000-0.055) GQ-Lib-L-Type Natriuretic Peptide 1074 pg/mL (0-124) Total Protein 7.7 g/dL (6.4-8.2) Albumin 3.8 g/dL (3.4-5.0) Albumin/Globulin Ratio 1.0 (1.0-1.7) Lipase 90 U/L (73-393) Urine Opiates Screen Neg (NEG) Urine Methadone Screen Neg (NEG) Urine Barbiturates Neg (NEG) Urine Phencyclidine Screen Neg (NEG) Urine Amphetamine/Methamphetamine Neg (NEG) Urine Benzodiazepines Screen Neg (NEG) Urine Cocaine Screen Pos (NEG) Urine Cannabinoids Screen Neg (NEG) Urine Ethyl Alcohol Neg (NEG) Triglycerides Level 31 mg/dL (0-150) Cholesterol Level 150 mg/dL (0-200) LDL Cholesterol, Calculated 87 mg/dL (0-100) VLDL Cholesterol, Calculated 6 mg/dL (0-40) Non-HDL Cholesterol Calculated 93 mg/dL (0-129) HDL Cholesterol 57 mg/dL (40-60) Cholesterol/HDL Ratio 2.6 Laboratory Tests Test 08/19/19 09:00 Troponin I Quantitative 0.161 ng/mL (0.000-0.055) Triglycerides Level 31 mg/dL (0-150) Cholesterol Level 150 mg/dL (0-200) LDL Cholesterol, Calculated 87 mg/dL (0-100) VLDL Cholesterol, Calculated 6 mg/dL (0-40) Non-HDL Cholesterol Calculated 93 mg/dL (0-129) HDL Cholesterol 57 mg/dL (40-60) Cholesterol/HDL Ratio 2.6 Medications Current Medications Nitroglycerin (Nitrostat) 0.4 mg PRN Q5MIN PRN SL CP RATING > 1/10 Last administered on 08/19/19 08:12; Start 08/18/19 at 09:15; Stop 08/19/19 at 09:14; Status DC Fentanyl Citrate (Fentanyl 2ml Vial) 50 mcg 1X ONCE IVP Last administered on 08/18/19 10:22; Start 08/18/19 at 10:15; Stop 08/18/19 at 10:16; Status DC Hydralazine HCl (Apresoline Inj) 10 mg 1X ONCE IVP Last administered on 08/18/19at 10:41; Start 08/18/19 at 10:45; Stop 08/18/19 at 10:46; Status DC Amlodipine Besylate (Norvasc) 5 mg 1X ONCE PO Last administered on 08/18/19 13:15; Start 08/18/19 at 13:00; Stop 08/18/19 at 13:01; Status DC Amlodipine Besylate (Norvasc) 10 mg BID PO Last administered on 08/19/19 08:15; Start 08/18/19 at 21:00 Atorvastatin Calcium (Lipitor) 20 mg QHS PO Last administered on 08/18/19 21:19; Start 08/18/19 at 21:00 Carvedilol (Coreg) 25 mg BIDWMEALS PO Last administered on 08/19/19 08:14; Start 08/18/19 at 17:00 Clopidogrel Bisulfate (Plavix) 75 mg DAILY PO Last administered on 08/19/19 08:15; Start 08/18/19 at 16:00 Fluticasone Propionate (Flonase) 2 spray DAILY NS Last administered on 08/19/19 08:17; Start 08/19/19 at 09:00 Furosemide (Lasix) 40 mg DAILY PO Last administered on 08/19/19 08:16; Start 08/18/19 at 16:00 Hydralazine HCl (Apresoline) 100 mg TID PO Last administered on 08/19/19 09:47; Start 08/18/19 at 16:00 Isosorbide Mononitrate (Imdur) 60 mg DAILY PO Last administered on 08/19/19 08:15; Start 08/18/19 at 16:00 Oxycodone/ Acetaminophen (Percocet 5/325) 1 tab PRN Q6HRS PRN PO MODERATE PAIN Last administered on 08/18/19at 22:36; Start 08/18/19 at 16:00 Non-Formulary Medication (Albuterol Sulfate (Ventolin Hfa Inhaler)) 2 puff Q4HRS INH ; Start 08/18/19 at 16:00; Status UNV Pantoprazole Sodium (Protonix) 40 mg BIDAC PO Last administered on 08/19/19at 08:16; Start 08/18/19 at 16:30 Morphine Sulfate (Morphine Sulfate) 2 mg PRN Q2HR PRN IV MODERATE TO SEVERE PAIN; Start 08/18/19 at 16:00 Enoxaparin Sodium (Lovenox 40mg Syringe) 40 mg Q24H SQ ; Start 08/18/19 at 16:00 Albuterol Sulfate (Ventolin Neb Soln) 2.5 mg Q4HRS NEB Last administered on 08/19/19at 11:41; Start 08/18/19 at 16:15 Active Scripts Active Oxycodone-Acetaminophen 5-325 (Oxycodone Hcl/Acetaminophen) 1 Each Tablet 1 Each PO PRN Q6HRS PRN [Pantoprazole] 40 MG Tablet.dr 40 Mg PO BIDAC Ventolin Hfa Inhaler (Albuterol Sulfate) 18 Gm Hfa.aer.ad 2 Puff INH Q4HRS 20 Days Furosemide 40 Mg Tablet 40 Mg PO DAILY 30 Days Carvedilol (Carvedilol) 12.5 Mg Tablet 25 Mg PO BIDWMEALS 30 Days Isosorbide Mononitrate Er (Isosorbide Mononitrate) 30 Mg Tab.er.24h 60 Mg PO DAILY 30 Days Hydralazine Hcl 50 Mg Tablet 100 Mg PO TID 30 Days Lipitor (Atorvastatin Calcium) 20 Mg Tablet 1 Tab PO DAILY Fluticasone Propionate Nasal [place] (Fluticasone Propionate) 1 [place] 2 [place] NS DAILY Reported Clopidogrel (Clopidogrel Bisulfate) 75 Mg Tablet 1 Tab PO DAILY Amlodipine Besylate 10 Mg Tablet 10 Mg PO BID Vitals/I & O Vital Sign - Last 24 Hours 08/18/19 08/18/19 08/18/19 08/18/19 15:00 16:32 16:38 16:38 Temp 98.4 98.4 Pulse 114 114 114 Resp 12 B/P (MAP) 145/84 (104) 145/84 145/84 Pulse Ox 98 95 O2 Delivery Room Air Room Air 08/18/19 08/18/19 08/18/19 08/18/19 19:46 19:52 20:00 21:19 Temp 97.5 97.5 Pulse 72 72 Resp 16 B/P (MAP) 139/94 (109) 139/94 Pulse Ox 95 99 O2 Delivery Room Air Room Air Room Air 08/18/19 08/18/19 08/18/19 08/18/19 21:20 22:23 22:36 23:36 Temp 98.3 98.3 Pulse 72 82 Resp 16 20 20 B/P (MAP) 139/94 109/77 (88) Pulse Ox 97 99 99 O2 Delivery Room Air Room Air Room Air 08/18/19 08/19/19 08/19/19 08/19/19 23:45 02:48 07:00 07:56 Temp 98.1 98.4 98.1 98.4 Pulse 67 75 Resp 16 20 B/P (MAP) 117/82 (94) 131/85 (100) Pulse Ox 99 100 100 O2 Delivery Room Air Room Air Room Air Room Air 08/19/19 08/19/19 08/19/19 08/19/19 08:00 08:12 08:14 08:15 Pulse 75 75 75 B/P (MAP) 131/85 131/85 131/85 O2 Delivery Room Air 08/19/19 08/19/19 08/19/19 08/19/19 08:15 09:47 11:00 11:42 Temp 98.1 98.1 Pulse 75 69 67 Resp 16 B/P (MAP) 131/85 104/65 115/67 (83) Pulse Ox 99 100 O2 Delivery Room Air Room Air Intake and Output 08/18/19 08/18/19 08/19/19 15:00 23:00 07:00 Intake Total 200 ml 740 ml 1260 ml Output Total 600 ml Balance 200 ml 740 ml 660 ml LAMIN BEARD MD Aug 19, 2019 13:43
--- NOTE | 2019-08-19 14:10 | NUR ---
SS following for discharge planning. SS reviewed pt chart. Pt is self pay pt. HCFS following for self pay status. Pt is from home and is currently on room air. Pt positive for Cocaine. Referral made to PAT team due to positive Cocaine. Guilherme came to meet with pt. Pt reported that he only does Cocaine 1x per week now and Marijuana occasionally. Pt denied need for services and was provided resources for RAADAC and RSI. Pt's RN notified.
[2019-08-19] MEDS: oxyCODONE/APAP 5/325 1 TAB TABLET PO PRN ×2 (14:32→20:40)
[2019-08-19] MEDS: ENOXAPARIN 40 MG/0.4 ML SYRINGE. SQ SCH (16:15)
[2019-08-19] MEDS: ATORVASTATIN CALCIUM 20 MG TABLET PO SCH (20:38)
[2019-08-20] VITALS (12 sets, daily range): BP systolic 110–155; BP diastolic 68–108
[2019-08-20] MEDS: ALBUTEROL SULFATE 2.5 MG/3 ML NEBU. NEB SCH ×2 (07:24→11:31)
[2019-08-20] MEDS: PANTOPRAZOLE 40 MG TABLET.DR. PO SCH (07:26)
[2019-08-20] MEDS: oxyCODONE/APAP 5/325 1 TAB TABLET PO PRN (07:26)
[2019-08-20] MEDS: CLOPIDOGREL BISULFATE 75 MG TABLET PO SCH (08:26)
[2019-08-20] MEDS: ISOSORBIDE MONONITRATE ER 30 MG TAB.ER.24H PO SCH (08:27)
[2019-08-20] MEDS: FUROSEMIDE 40 MG TABLET. PO SCH (08:27)
[2019-08-20] MEDS: amLODIPine BESYLATE 10 MG TABLET PO SCH (08:28)
[2019-08-20] MEDS: CARVEDILOL 12.5 MG TABLET. PO SCH (08:28)
[2019-08-20] MEDS: FLUTICASONE 50MCG/NASAL SPRAY 16GM BOTTLE. NS SCH (08:29)
--- NOTE | 2019-08-20 11:40 | PDOC ---
[employer] PROGRESS NOTE Chief Complaint Chief Complaint Syncope Chest pain Acute dyspnea Acute on chronic exacerbation of combined systolic and diastolic heart failure History of cardiac amyloidosis suspected Cocaine and tobacco use disorder Uncontrolled hypertension Coronary artery disease Secondary pulmonary hypertension Chronic kidney disease stage 3 History of Present Illness History of Present Illness 08/20/19 Pt seen and examined Pt is feeling better and is ready to be discharge home Pt had an episode of dizziness earlier today but has had an appetite and overall looks much better EF = 35% We continuing to cut back on his cocaine use Troponin peak = .165 DW RN still weakness when standing needs echo done bubble study planned he has no n.v.d Vitals/I&O Vitals/I&O: Vital Signs Date Time Temp Pulse Resp B/P (MAP) Pulse Ox O2 Delivery O2 Flow Rate FiO2 08/20/19 11:00 98.4 64 16 150/96 (114) 97 Room Air 98.4 I & O 08/19/19 08/19/19 08/20/19 15:00 23:00 07:00 Intake Total 120 ml 1500 ml Output Total 350 ml Balance -350 ml 120 ml 1500 ml Physical Exam Physical Exam: tele reg, rate 80 General: Alert, Oriented X3, Cooperative, No acute distress Heart: Regular rate, No murmurs Lungs: Crackles Abdomen: Normal bowel sounds, Soft, No tenderness, No hepatosplenomegaly, No masses Extremities: No clubbing, No cyanosis, No edema, Normal pulses, No tenderness/swelling Skin: No rashes, No breakdown, No significant lesion Review of Systems Review of Systems: Denies v/d Denies chest pain Assessment and Plan Assessmemt and Plan Problems Medical Problems: (1) Acute chest pain Status: Acute (2) CHF (congestive heart failure) Status: Acute (3) Cocaine abuse Status: Acute (4) Elevated CPK Status: Acute (5) Elevated troponin I level Status: Acute (6) Hypercalcemia Status: Acute (7) Syncope Status: Acute Assessment Acute chest pain CHF Elevated CPOK Elevated troponin Hypercalcemia Syncope Cocaine abuse Plan Cardiac monitoring DVT prophylaxis Home meds Appreciate cardiology following Prescribed amlodipine, Lasix, and Percocet Probable discharge today Comment Review of Relevant I have reviewed the following items coleman (where applicable) has been applied. KARLY MITCHELL III DO Aug 20, 2019 11:40
--- NOTE | 2019-08-20 13:24 | NUR ---
Discharge Note: VEENA GARCIA Discharge instructions and discharge home medications reviewed with Patient and a copy given. All questions have been answered and understanding verbalized. The following instructions and handouts were given: Angina, Cocaine and chemical dependency, and cardiac diet. Discontinued iv lines and catheter intact. Patient discharged to home with self-care via private vehicle.
--- NOTE | 2019-08-23 12:47 | DS ---
DATE OF DISCHARGE: 08/20/2019 ADMISSION DIAGNOSES: Chest pain and cocaine positive. DISCHARGE DIAGNOSIS: Resolving atypical chest pain, probably secondary to cocaine. HOSPITAL COURSE: The patient is a pleasant 54-year-old male who presented with chest pain. He was cocaine positive. He also smokes marijuana. Basically did a full cardiac workup, but everything was negative, although we believe his chest pain was secondary to cocaine use. Overall, he did great. We discharged to home with close outpatient followup. DISPOSITION: Home. ACTIVITY: As tolerated. DIET: Cardiac. MEDICATIONS: Please see the MRAD. TOTAL TIME: 31 minutes. TONYAL Esperanza MITCHELL DO DR: Verónica JOB#: [id number] / [id number]
== END 2019-08-20 12:42 | disposition home or self-care (01) | DRG 291 ==
LOC: ER 09:03 → 2 SOUTH 09:50
PROVIDERS: ADMIT Internal Medicine; ATTEND Internal Medicine
DX: I13.0 Hypertensive heart and chronic kidney disease with heart failure and stage 1 through stage 4 chronic kidney disease, or unspecified chronic kidney disease (principal); I50.43 Acute on chronic combined systolic (congestive) and diastolic (congestive) heart failure; E78.00 Pure hypercholesterolemia, unspecified; I43 Cardiomyopathy in diseases classified elsewhere; I42.8 Other cardiomyopathies; F17.200 Nicotine dependence, unspecified, uncomplicated; G47.30 Sleep apnea, unspecified; I25.2 Old myocardial infarction; F14.10 Cocaine abuse, uncomplicated; E83.52 Hypercalcemia; I27.29 Other secondary pulmonary hypertension; I34.0 Nonrheumatic mitral (valve) insufficiency; E78.5 Hyperlipidemia, unspecified; J44.9 Chronic obstructive pulmonary disease, unspecified; M19.90 Unspecified osteoarthritis, unspecified site; N18.3 Chronic kidney disease, stage 3 (moderate); I25.119 Atherosclerotic heart disease of native coronary artery with unspecified angina pectoris; Z87.11 Personal history of peptic ulcer disease; Z95.5 Presence of coronary angioplasty implant and graft; Z91.19 Patient's noncompliance with other medical treatment and regimen; Z86.73 Personal history of transient ischemic attack (TIA), and cerebral infarction without residual deficits; Z88.8 Allergy status to other drugs, medicaments and biological substances; Z82.49 Family history of ischemic heart disease and other diseases of the circulatory system
CPT/HCPCS: 36415; 70450; 71045; 80053; 80061; 80307; 82550; 83690; 83735; 83880; 84484; 85025; 85610; 93005; 93880; 93970; 94640; 94760; 96374; 96375; J0360; J1650; J3010; J7613; 99285-25; G0378

== ENCOUNTER 2019-08-24 17:38 | Inpatient (IN) | payer SELFPAY ==
[~2019-08-24] VITALS: Ht 182.9 cm; Wt 83.0 kg
[2019-08-24] MEDS ORDERED: NITROGLYCERIN SUBLINGUAL 0.4 MG BOTTLE OF 25. SL PRN ×2 (17:45→19:15)
--- NOTE | 2019-08-24 18:18 | RAD ---
Single view portable chest HISTORY: Chest pain. COMPARISON: 2018. FINDINGS: Cardiomediastinal silhouettes are stable. The aorta again appears tortuous/ectatic. No evidence of pneumothorax, pleural effusion or airspace consolidation. Bones appear grossly intact. IMPRESSION: No evidence of consolidating infiltrate. Electronically signed by: Inocencio Ozuna MD (08/24/2019 6:15 PM) [facility]
[2019-08-24 18:27] LABS: BASO # 0.1 x10^3/uL (0.0-0.2); BASO % 1 % (0-3); EOS # 0.1 x10^3/uL (0.0-0.7); EOS % 1 % (0-3); HEMATOCRIT 37.4 % (39.0-53.0); HEMOGLOBIN 12.2 g/dL (13.0-17.5); LYMPH # 1.6 x10^3/uL (1.0-4.8); LYMPH % 27 % (24-48); MEAN CORPUSCULAR HEMOGLOBIN 24 pg (25-35); MEAN CORPUSCULAR HGB CONC 33 g/dL (31-37); MEAN CORPUSCULAR VOLUME 75 fL (79-100); MONO # 0.8 x10^3/uL (0.0-1.1); MONO % 14 % (0-9); NEUT # 3.4 x10^3/uL (1.8-7.7); NEUT % 57 % (31-73); PLATELET COUNT 224 x10^3/uL (140-400); RED CELL DISTRIBUTION WIDTH 20.7 % (11.5-14.5)
[2019-08-24 18:35] LABS: CALCIUM 10.4 mg/dL (8.5-10.1); CREATININE 1.6 mg/dL (0.7-1.3); GFR 55.2; POTASSIUM 4.5 mmol/L (3.5-5.1)
[2019-08-24 18:40] LABS: ALBUMIN 3.7 g/dL (3.4-5.0); ALBUMIN/GLOBULIN RATIO 1.1 (1.0-1.7); MAGNESIUM 1.9 mg/dL (1.8-2.4); TOTAL BILIRUBIN 0.3 mg/dL (0.2-1.0); TOTAL PROTEIN 7.2 g/dL (6.4-8.2)
[2019-08-24 19:07] LABS: ANISOCYTOSIS MOD; HYPOCHROMIA SLIGHT; MICROCYTOSIS SLIGHT; OVALOCYTES FEW; PLT ESTIMATE ADEQUATE (ADEQUATE); POLYCHROMASIA SLIGHT
--- NOTE | 2019-08-24 19:13 | PHYS DOC ---
Past Medical History Past Medical History: Angina, Asthma, CHF, COPD, CVA, High Cholesterol, Hypertension, OH, Renal Disease Additional Past Medical Histor: MURMUR, CATH WITH STENT, ULCER, SLEEP APNEA Past Surgical History: No Surgical History Additional Past Surgical Histo: cardiac cath with stent placement Alcohol Use: None Drug Use: None Adult General Chief Complaint Chief Complaint: CHEST PAIN HPI HPI Patient is a 54 year old male with history of hypertension, high cholesterol, CAD, OH in 2018 with one stent, kidney disease, COPD, current smoker, who presents to the ED today complaining of left-sided chest pain rated at 6 out of 10 describes as pressure that has been going on for one week. Patient states he was seen in the ED a week ago due to the same pain, he states she was admitted and discharged a couple days later. He states at discharged he was informed to come to the ED if the pain worsens. She states the pain has continued to be in the same area with the same intensity. Patient denies any exacerbating or relieving factors. Patient was given nitroglycerin, morphine as well as 324 mg of aspirin with minimal relief. Review of Systems Review of Systems Constitutional: Denies fever or chills [] Eyes: Denies change in visual acuity, redness, or eye pain [] HENT: Denies nasal congestion or sore throat [] Respiratory: Denies cough or shortness of breath [] Cardiovascular: Reports chest pain GI: Denies abdominal pain, nausea, vomiting, bloody stools or diarrhea [] : Denies dysuria or hematuria [] Musculoskeletal: Denies back pain or joint pain [] Integument: Denies rash or skin lesions [] Neurologic: Denies headache, focal weakness or sensory changes [] All other systems were reviewed and found to be within normal limits, except as documented in this note. Current Medications Current Medications Current Medications Medications (Trade) Dose Ordered Sig/Deepa Start Time Stop Time Status Last Admin Dose Admin Nitroglycerin (Nitrostat) 0.4 mg PRN Q5MIN PRN 08/24/19 17:45 08/25/19 17:44 Allergies Allergies Allergies Coded Allergies Type Severity Reaction Last Updated Verified lisinopril Allergy Severe Swelling 08/09/18 Yes Physical Exam Physical Exam Constitutional: Well developed, well nourished, no acute distress, non-toxic appearance. [] HENT: Normocephalic, atraumatic, bilateral external ears normal, oropharynx moist, no oral exudates, nose normal. [] Eyes: PERRLA, EOMI, conjunctiva normal, no discharge. [] Neck: Normal range of motion, no tenderness, supple, no stridor. [] Cardiovascular:Heart rate regular rhythm, no murmur [] Lungs & Thorax: Bilateral breath sounds clear to auscultation [] Abdomen: Bowel sounds normal, soft, no tenderness, no masses, no pulsatile masses. [] Skin: Warm, dry, no erythema, no rash. [] Back: No tenderness, no CVA tenderness. [] Extremities: No tenderness, no cyanosis, no clubbing, ROM intact, no edema. [] Neurologic: Alert and oriented X 3, normal motor function, normal sensory function, no focal deficits noted. [] Psychologic: Affect normal, judgement normal, mood normal. [] Current Patient Data Vital Signs Vital Signs Date Time Temp Pulse Resp B/P (MAP) Pulse Ox O2 Delivery O2 Flow Rate FiO2 08/24/19 18:23 65 20 152/105 (121) 94 Room Air 08/24/19 17:38 98.2 98.2 Lab Values Laboratory Tests Test 08/24/19 18:14 White Blood Count 6.0 x10^3/uL (4.0-11.0) Red Blood Count 5.00 x10^6/uL (4.30-5.70) Hemoglobin 12.2 g/dL (13.0-17.5) L Hematocrit 37.4 % (39.0-53.0) L Mean Corpuscular Volume 75 fL (79-100) L Mean Corpuscular Hemoglobin 24 pg (25-35) L Mean Corpuscular Hemoglobin Concent 33 g/dL (31-37) Red Cell Distribution Width 20.7 % (11.5-14.5) H Platelet Count 224 x10^3/uL (140-400) Neutrophils (%) (Auto) 57 % (31-73) Lymphocytes (%) (Auto) 27 % (24-48) Monocytes (%) (Auto) 14 % (0-9) H Eosinophils (%) (Auto) 1 % (0-3) Basophils (%) (Auto) 1 % (0-3) Neutrophils # (Auto) 3.4 x10^3/uL (1.8-7.7) Lymphocytes # (Auto) 1.6 x10^3/uL (1.0-4.8) Monocytes # (Auto) 0.8 x10^3/uL (0.0-1.1) Eosinophils # (Auto) 0.1 x10^3/uL (0.0-0.7) Basophils # (Auto) 0.1 x10^3/uL (0.0-0.2) Platelet Estimate Adequate (ADEQUATE) Large Platelets Occ Polychromasia Slight Hypochromasia Slight Anisocytosis Mod Microcytosis Slight Ovalocytes Few Sodium Level 142 mmol/L (136-145) Potassium Level 4.5 mmol/L (3.5-5.1) Chloride Level 105 mmol/L (98-107) Carbon Dioxide Level 29 mmol/L (21-32) Anion Gap 8 (6-14) Blood Urea Nitrogen 28 mg/dL (8-26) H Creatinine 1.6 mg/dL (0.7-1.3) H Estimated GFR (Cockcroft-Gault) 55.2 BUN/Creatinine Ratio 18 (6-20) Glucose Level 98 mg/dL (70-99) Calcium Level 10.4 mg/dL (8.5-10.1) H Magnesium Level 1.9 mg/dL (1.8-2.4) Total Bilirubin 0.3 mg/dL (0.2-1.0) Aspartate Amino Transferase (AST) 39 U/L (15-37) H Alanine Aminotransferase (ALT) 37 U/L (16-63) Alkaline Phosphatase 74 U/L (46-116) Troponin I Quantitative 0.117 ng/mL (0.000-0.055) Total Protein 7.2 g/dL (6.4-8.2) Albumin 3.7 g/dL (3.4-5.0) Albumin/Globulin Ratio 1.1 (1.0-1.7) Laboratory Tests 08/24/19 18:14 Laboratory Tests 08/24/19 18:14 EKG EKG [address] elevation noted on V4, V2, and V3, T-wave inversions noted on V5. Radiology/Procedures Radiology/Procedures []PROCEDURE: PORTABLE CHEST 1V Single view portable chest HISTORY: Chest pain. COMPARISON: 2018. FINDINGS: Cardiomediastinal silhouettes are stable. The aorta again appears tortuous/ectatic. No evidence of pneumothorax, pleural effusion or airspace consolidation. Bones appear grossly intact. IMPRESSION: No evidence of consolidating infiltrate. Electronically signed by: Inocencio Ozuna MD (08/24/2019 6:15 PM) [facility] DICTATED and SIGNED BY: INOCENCIO OZUNA MD DATE: 08/24/19 8890 Course & Med Decision Making Course & Med Decision Making Pertinent Labs and Imaging studies reviewed. (See chart for details) This is a 54-year-old male patient presented to the ED today with chest pain that has been going on for one week. Patient was discharged from the hospital couple days ago for the same complaint. Chest x-ray is negative, EKG is negative for any acute findings, troponin is 0.117-troponin noted to be slightly lower than the previous admission a couple days ago. CBC with normal WBC, CMP with creatinine of 1.6, BUN [address] Pulido who accepted patient for admission as Routine phone call placed for cardiology as well as routine consult-waiting to hear from cardiology Dragon Disclaimer Dragon Disclaimer This electronic medical record was generated, in whole or in part, using a voice recognition dictation system. 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
[2019-08-24] MEDS ORDERED: ONDANSETRON PF 4 MG/2 ML VIAL. IV PRN (19:15)
[2019-08-24] MEDS ORDERED: ACETAMINOPHEN 325 MG TABLET. PO PRN (19:15)
[2019-08-24] MEDS: MORPHINE SULFATE 4 MG/ML VIAL. IV PRN (19:24)
[2019-08-24 19:59] VITALS: BP 166/106
[2019-08-24] MEDS ORDERED: CARV25TA2 PO (20:25)
[2019-08-24] MEDS ORDERED: PANT40TA77 PO (20:25)
[2019-08-24] MEDS ORDERED: amLODIPine BESYLATE 10 MG TABLET PO ONE (21:00)
[2019-08-24 23:50] VITALS: BP 149/88
[2019-08-25 03:15] VITALS: BP 110/80
[2019-08-25 05:35] LABS: BASO # 0.1 x10^3/uL (0.0-0.2); BASO % 1 % (0-3); EOS # 0.1 x10^3/uL (0.0-0.7); EOS % 2 % (0-3); HEMATOCRIT 36.5 % (39.0-53.0); HEMOGLOBIN 11.7 g/dL (13.0-17.5); LYMPH # 2.4 x10^3/uL (1.0-4.8); LYMPH % 33 % (24-48); MEAN CORPUSCULAR HEMOGLOBIN 24 pg (25-35); MEAN CORPUSCULAR HGB CONC 32 g/dL (31-37); MEAN CORPUSCULAR VOLUME 75 fL (79-100); MONO # 1.1 x10^3/uL (0.0-1.1); MONO % 15 % (0-9); NEUT # 3.6 x10^3/uL (1.8-7.7); NEUT % 49 % (31-73); PLATELET COUNT 224 x10^3/uL (140-400); RED BLOOD COUNT 4.87 x10^6/uL (4.30-5.70); RED CELL DISTRIBUTION WIDTH 20.9 % (11.5-14.5); WHITE BLOOD COUNT 7.3 x10^3/uL (4.0-11.0)
[2019-08-25 05:45] LABS: CREATININE 1.7 mg/dL (0.7-1.3); GFR 51.5; POTASSIUM 4.3 mmol/L (3.5-5.1)
[2019-08-25 07:45] VITALS: BP 172/90
[2019-08-25] MEDS: MORPHINE SULFATE 4 MG/ML VIAL. IV PRN (08:46)
--- NOTE | 2019-08-25 10:00 | PDOC ---
[employer] PROGRESS NOTE Chief Complaint Chief Complaint Chest pain History of Present Illness History of Present Illness 08/25/19 Pt seen and examined at bedside Troponin is increased from 0.117 on 08/24 to 0.149 today Aorta torturous/ectatic on CXR Pt is still complaining of chest pain Will consult cardiology, nephrology DW RN Charts and labs reviewed Vitals/I&O Vitals/I&O: Vital Signs Date Time Temp Pulse Resp B/P (MAP) Pulse Ox O2 Delivery O2 Flow Rate FiO2 08/25/19 08:46 18 95 Room Air 08/25/19 07:45 98.3 65 172/90 (117) 98.3 I & O 08/24/19 08/24/19 08/25/19 15:00 23:00 07:00 Intake Total 240 ml 560 ml Output Total 200 ml 400 ml Balance 40 ml 160 ml Physical Exam General: Alert, Oriented X3, Cooperative, mild distress Heart: Regular rate, Other (Still having chest pain) Lungs: Clear, Crackles Abdomen: Normal bowel sounds Extremities: No clubbing, No cyanosis Skin: No rashes Labs Labs: Laboratory Tests Test 08/24/19 18:14 08/25/19 00:30 08/25/19 04:00 White Blood Count 6.0 x10^3/uL (4.0-11.0) 7.3 x10^3/uL (4.0-11.0) Red Blood Count 5.00 x10^6/uL (4.30-5.70) 4.87 x10^6/uL (4.30-5.70) Hemoglobin 12.2 g/dL (13.0-17.5) 11.7 g/dL (13.0-17.5) Hematocrit 37.4 % (39.0-53.0) 36.5 % (39.0-53.0) Mean Corpuscular Volume 75 fL (79-100) 75 fL (79-100) Mean Corpuscular Hemoglobin 24 pg (25-35) 24 pg (25-35) Mean Corpuscular Hemoglobin Concent 33 g/dL (31-37) 32 g/dL (31-37) Red Cell Distribution Width 20.7 % (11.5-14.5) 20.9 % (11.5-14.5) Platelet Count 224 x10^3/uL (140-400) 224 x10^3/uL (140-400) Neutrophils (%) (Auto) 57 % (31-73) 49 % (31-73) Lymphocytes (%) (Auto) 27 % (24-48) 33 % (24-48) Monocytes (%) (Auto) 14 % (0-9) 15 % (0-9) Eosinophils (%) (Auto) 1 % (0-3) 2 % (0-3) Basophils (%) (Auto) 1 % (0-3) 1 % (0-3) Neutrophils # (Auto) 3.4 x10^3/uL (1.8-7.7) 3.6 x10^3/uL (1.8-7.7) Lymphocytes # (Auto) 1.6 x10^3/uL (1.0-4.8) 2.4 x10^3/uL (1.0-4.8) Monocytes # (Auto) 0.8 x10^3/uL (0.0-1.1) 1.1 x10^3/uL (0.0-1.1) Eosinophils # (Auto) 0.1 x10^3/uL (0.0-0.7) 0.1 x10^3/uL (0.0-0.7) Basophils # (Auto) 0.1 x10^3/uL (0.0-0.2) 0.1 x10^3/uL (0.0-0.2) Platelet Estimate Adequate (ADEQUATE) Large Platelets Occ Polychromasia Slight Hypochromasia Slight Anisocytosis Mod Microcytosis Slight Ovalocytes Few Sodium Level 142 mmol/L (136-145) 142 mmol/L (136-145) Potassium Level 4.5 mmol/L (3.5-5.1) 4.3 mmol/L (3.5-5.1) Chloride Level 105 mmol/L (98-107) 106 mmol/L (98-107) Carbon Dioxide Level 29 mmol/L (21-32) 30 mmol/L (21-32) Anion Gap 8 (6-14) 6 (6-14) Blood Urea Nitrogen 28 mg/dL (8-26) 29 mg/dL (8-26) Creatinine 1.6 mg/dL (0.7-1.3) 1.7 mg/dL (0.7-1.3) Estimated GFR (Cockcroft-Gault) 55.2 51.5 BUN/Creatinine Ratio 18 (6-20) Glucose Level 98 mg/dL (70-99) 76 mg/dL (70-99) Calcium Level 10.4 mg/dL (8.5-10.1) 10.0 mg/dL (8.5-10.1) Magnesium Level 1.9 mg/dL (1.8-2.4) Total Bilirubin 0.3 mg/dL (0.2-1.0) Aspartate Amino Transf (AST/SGOT) 39 U/L (15-37) Alanine Aminotransferase (ALT/SGPT) 37 U/L (16-63) Alkaline Phosphatase 74 U/L (46-116) Troponin I Quantitative 0.117 ng/mL (0.000-0.055) 0.149 ng/mL (0.000-0.055) Total Protein 7.2 g/dL (6.4-8.2) Albumin 3.7 g/dL (3.4-5.0) Albumin/Globulin Ratio 1.1 (1.0-1.7) Review of Systems Review of Systems: No nausea, no vomiting No headache, no changes in vision Assessment and Plan Assessmemt and Plan Problems Medical Problems: (1) Elevated troponin Status: Acute Assessment Chest pain Elevated troponin Chronic renal failure, stage 4 Plan Cardiac monitoring Consult cardiology Consult nephrology EKG, serial enzymes Trend troponin DVT prophylaxis Full code Comment Review of Relevant I have reviewed the following items coleman (where applicable) has been applied. Medications: Current Medications Medications (Trade) Dose Ordered Sig/Deepa Route PRN Reason Start Time Stop Time Status Last Admin Dose Admin Morphine Sulfate (Morphine Sulfate) 4 mg PRN Q2HR PRN IV PAIN 08/24/19 19:15 08/25/19 19:14 08/25/19 08:46 Amlodipine Besylate (Norvasc) 10 mg 1X ONCE PO 08/24/19 21:00 08/24/19 21:01 DC 08/24/19 21:00 Hydralazine HCl (Apresoline) 100 mg 1X ONCE PO 08/24/19 21:00 08/24/19 21:01 DC 08/24/19 21:00 CASTLE,NIAL K III DO Aug 25, 2019 10:00
[2019-08-25 10:32] VITALS: BP 145/109
--- NOTE | 2019-08-25 11:58 | EKG ---
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
--- NOTE | 2019-08-25 12:16 | PDOC ---
CARDIOLOGY PROGRESS NOTE SUBJECTIVE: Please see consult note from 08/19/2019 for full details. patient is well known to us and last time he had a cocaine + screen and his chest pain was felt to be from spasm and he was discharged to continue w/u with [facility] for possible amyloid. He states that he has stinging chest pain that feels like the same when he had his prior stent. He denies any recurrent cocaine use the last week or so. OBJECTIVE: Vital Signs/I&O: Vital Signs Date Time Temp Pulse Resp B/P (MAP) Pulse Ox O2 Delivery O2 Flow Rate FiO2 08/25/19 10:32 97.5 59 22 145/109 (121) 97 Room Air 97.5 I & O 08/24/19 08/24/19 08/25/19 15:00 23:00 07:00 Intake Total 240 ml 560 ml Output Total 200 ml 400 ml Balance 40 ml 160 ml Objective: GEN.: No apparent distress. Alert and oriented. HEENT: Head is normocephalic, atraumatic NECK: Supple. LUNGS: Clear to auscultation. HEART: RRR, S1, S2 present. Peripheral pulses intact ABDOMEN: Soft, nontender. Positive bowel sounds. EXTREMITIES: Without any cyanosis. NEUROLOGIC: Normal speech, normal tone PSYCHIATRIC: Normal affect, normal mood. SKIN: No ulcerations CURRENT MEDICATIONS: No current CV meds. DIAGNOSTIC TESTING: Chronic troponin elevation EKG unremarkable. Tox screen pending Labs: Laboratory Tests 08/25/19 04:00 Laboratory Tests Test 08/24/19 18:14 08/25/19 04:00 White Blood Count 6.0 x10^3/uL (4.0-11.0) 7.3 x10^3/uL (4.0-11.0) Red Blood Count 5.00 x10^6/uL (4.30-5.70) 4.87 x10^6/uL (4.30-5.70) Hemoglobin 12.2 g/dL (13.0-17.5) L 11.7 g/dL (13.0-17.5) L Hematocrit 37.4 % (39.0-53.0) L 36.5 % (39.0-53.0) L Mean Corpuscular Volume 75 fL (79-100) L 75 fL (79-100) L Mean Corpuscular Hemoglobin 24 pg (25-35) L 24 pg (25-35) L Mean Corpuscular Hemoglobin Concent 33 g/dL (31-37) 32 g/dL (31-37) Red Cell Distribution Width 20.7 % (11.5-14.5) H 20.9 % (11.5-14.5) H Platelet Count 224 x10^3/uL (140-400) 224 x10^3/uL (140-400) Neutrophils (%) (Auto) 57 % (31-73) 49 % (31-73) Lymphocytes (%) (Auto) 27 % (24-48) 33 % (24-48) Monocytes (%) (Auto) 14 % (0-9) H 15 % (0-9) H Eosinophils (%) (Auto) 1 % (0-3) 2 % (0-3) Basophils (%) (Auto) 1 % (0-3) 1 % (0-3) Neutrophils # (Auto) 3.4 x10^3/uL (1.8-7.7) 3.6 x10^3/uL (1.8-7.7) Lymphocytes # (Auto) 1.6 x10^3/uL (1.0-4.8) 2.4 x10^3/uL (1.0-4.8) Monocytes # (Auto) 0.8 x10^3/uL (0.0-1.1) 1.1 x10^3/uL (0.0-1.1) Eosinophils # (Auto) 0.1 x10^3/uL (0.0-0.7) 0.1 x10^3/uL (0.0-0.7) Basophils # (Auto) 0.1 x10^3/uL (0.0-0.2) 0.1 x10^3/uL (0.0-0.2) Platelet Estimate Adequate (ADEQUATE) Large Platelets Occ Polychromasia Slight Hypochromasia Slight Anisocytosis Mod Microcytosis Slight Ovalocytes Few Sodium Level 142 mmol/L (136-145) 142 mmol/L (136-145) Potassium Level 4.5 mmol/L (3.5-5.1) 4.3 mmol/L (3.5-5.1) Chloride Level 105 mmol/L (98-107) 106 mmol/L (98-107) Carbon Dioxide Level 29 mmol/L (21-32) 30 mmol/L (21-32) Anion Gap 8 (6-14) 6 (6-14) Blood Urea Nitrogen 28 mg/dL (8-26) H 29 mg/dL (8-26) H Creatinine 1.6 mg/dL (0.7-1.3) H 1.7 mg/dL (0.7-1.3) H Estimated GFR (Cockcroft-Gault) 55.2 51.5 BUN/Creatinine Ratio 18 (6-20) Glucose Level 98 mg/dL (70-99) 76 mg/dL (70-99) Calcium Level 10.4 mg/dL (8.5-10.1) H 10.0 mg/dL (8.5-10.1) Total Bilirubin 0.3 mg/dL (0.2-1.0) Aspartate Amino Transf (AST/SGOT) 39 U/L (15-37) H Alkaline Phosphatase 74 U/L (46-116) Total Protein 7.2 g/dL (6.4-8.2) Albumin 3.7 g/dL (3.4-5.0) Albumin/Globulin Ratio 1.1 (1.0-1.7) ASSESSMENT: 1. Atypical chest pain 2. NSTEMI - likely Type 2 but cannot rule out ischemic heart disease given his cocaine use. 3. Uncontrolled HTN 4. Poor social situation 5. PUD PLAN: 1. His pain is most likely related to PUD and HTN but cannot definitively rule out coronary disease. His cath in 03/2019 did not reveal any significant obstructive disease but patient states that he wants another heart cath. - I discussed with him extensively about his cocaine use. - If his Utox is negative, then plan for cath tmrw with the understanding about risk of CHRISTY etc ( discussed with patient) and if no signifcant disease, plan for evaluation of PUD and other etiologies. If uTox positive, then continue medical therapy only. -Will start coreg, hydralazine, imdur for BP control. Thanks AARTI TORRE MD Aug 25, 2019 12:16
[2019-08-25] MEDS ORDERED: CARVEDILOL 3.125 MG TABLET. PO SCH (12:30)
[2019-08-25] MEDS ORDERED: ISOSORBIDE MONONITRATE ER 30 MG TAB.ER.24H PO SCH (12:30)
[2019-08-25] MEDS ORDERED: IV NORMAL SALINE 1000ML BAG 1,000 ML IV ONE (12:30)
[2019-08-25 12:58] LABS: BARBITURATES NEG (NEG); BENZODIAZEPINES NEG (NEG); CANNABINOIDS NEG (NEG); COCAINE POS (NEG); METHADONE NEG (NEG); OPIATES POS (NEG); PHENCYCLIDINE NEG (NEG)
[2019-08-25 13:02] LABS: AMPHETAMINE/METHAMPHETAMINE NEG (NEG)
--- NOTE | 2019-08-25 13:53 | PDOC2 ---
CONSULT Date of Consult Date of Consult DATE: 08/25/19 TIME: 13:53 Reason for Consult Reason for Consult: Chronic kidney disease Referring Physician Referring Physician: Mary Identification/Chief Complaint Chief Complaint Chest pain Source Source: Chart review, Patient Past Medical History Cardiovascular: CAD, CHF, HTN, Hyperlipidemia, Other Pulmonary: Asthma, COPD CENTRAL NERVOUS SYSTEM: Other GI: No pertinent hx Heme/Onc: No pertinent hx Hepatobiliary: No pertinent hx Psych: No pertinent hx Musculoskeletal: Osteoarthritis Rheumatologic: No pertinent hx Infectious disease: No pertinent hx Renal/: Chronic renal insuff Endocrine: No pertinent hx Past Surgical History Past Surgical History: Tonsillectomy, Other Family History Family History: High Cholestrol, Hypertension Social History ALCOHOL: none Drugs: Cocaine, Other Lives: with Family Current Problem List Problem List Problems Medical Problems: (1) Elevated troponin Status: Acute Current Medications Current Medications Current Medications Nitroglycerin (Nitrostat) 0.4 mg PRN Q5MIN PRN SL CP RATING > 1/10; Start 08/24/19 at 17:45; Stop 08/25/19 at 17:44 Ondansetron HCl (Zofran) 4 mg PRN Q8HRS PRN IV NAUSEA/VOMITING; Start 08/24/19 at 19:15; Stop 08/25/19 at 19:14 Morphine Sulfate (Morphine Sulfate) 4 mg PRN Q2HR PRN IV PAIN Last administered on 08/25/19at 08:46; Start 08/24/19 at 19:15; Stop 08/25/19 at 19:14 Acetaminophen (Tylenol) 650 mg PRN Q4HRS PRN PO FEVER; Start 08/24/19 at 19:15; Stop 08/25/19 at 19:14 Nitroglycerin (Nitrostat) 0.4 mg PRN Q5MIN PRN SL CHEST PAIN; Start 08/24/19 at 19:15; Stop 08/25/19 at 08:42; Status DC Amlodipine Besylate (Norvasc) 10 mg 1X ONCE PO Last administered on 08/24/19at 21:00; Start 08/24/19 at 21:00; Stop 08/24/19 at 21:01; Status DC Hydralazine HCl (Apresoline) 100 mg 1X ONCE PO Last administered on 08/24/19at 21:00; Start 08/24/19 at 21:00; Stop 08/24/19 at 21:01; Status DC Carvedilol (Coreg) 3.125 mg BIDWMEALS PO Last administered on 08/25/19at 13:34; Start 08/25/19 at 12:30 Hydralazine HCl (Apresoline) 25 mg TID PO Last administered on 08/25/19at 13:35; Start 08/25/19 at 14:00 Isosorbide Mononitrate (Imdur) 30 mg DAILY PO Last administered on 08/25/19at 13:34; Start 08/25/19 at 12:30 Sodium Chloride 1,000 ml @ 100 mls/hr 1X ONCE IV ; Start 08/25/19 at 12:30; Stop 08/25/19 at 22:29 Active Scripts Active Oxycodone-Acetaminophen 5-325 (Oxycodone Hcl/Acetaminophen) 1 Each Tablet 1 Each PO PRN Q6HRS PRN Ventolin Hfa Inhaler (Albuterol Sulfate) 18 Gm Hfa.aer.ad 2 Puff INH Q4HRS 20 Days Furosemide 40 Mg Tablet 40 Mg PO DAILY 30 Days Isosorbide Mononitrate Er (Isosorbide Mononitrate) 30 Mg Tab.er.24h 60 Mg PO DAILY 30 Days Hydralazine Hcl 50 Mg Tablet 100 Mg PO TID 30 Days Lipitor (Atorvastatin Calcium) 20 Mg Tablet 1 Tab PO DAILY Fluticasone Propionate Nasal Dennard (Fluticasone Propionate) 1 Dennard Dennard 2 Dennard NS DAILY Reported Carvedilol 25 Mg Tablet 25 Mg PO DAILY Clopidogrel (Clopidogrel Bisulfate) 75 Mg Tablet 1 Tab PO DAILY Amlodipine Besylate 10 Mg Tablet 10 Mg PO BID Pantoprazole Sodium (Pantoprazole Sodium) 40 Mg Tablet.dr 40 Mg PO DAILYAC Allergies Allergies: Coded Allergies: lisinopril (Verified Allergy, Severe, Swelling, 08/09/18) caused throat swelling ROS Review of System GEN: [ ] Fevers [ ] Chills EYES: [ ] Visual Complaints ENT: [ ] EN Drainage [ ] Hearing deficiets CVS: [ ] Orthopnea [ ] CP RESP: [ ] SOB [ ] WEI GI: [ ] Nausea [ ] Vomiting : [ ] Dysuria [ ] Urgency HEME: [ ] easy bruising [ ] Palp Ly Nodes NEURO [ ] Focal Weakness [ ] Sz PSYCH: [ ] Suicidal Ideation [ ] Depression SKIN: [ ] Rashes ENDO: [ ] Polyuria or Polydipsia [ ] Hot/Cold Intolerance MU SK: [ ] Arthraigia [ ] Myalgia Physical Exam Physical Exam GEN: Awake, Oriented x [], In [] distress EYES: Vision Unchanged, Conjunctiva Normal EN: No EN Drainage, Mucous Membranes [] NECK: [] JVD, [] JVP, Supple, [] Thyromegaly CVS: S1S2, [] Murmur, No Gallop, No Rub,[] Edema RESP: [] Rales, [] Rhonchi,[] Acc. Muscle Use GI: BS + ve, NO Bruit, Non Tender, Non Distended : [] CVA tenderness, [] Suprapubic Tenderness Vital Signs Vital Signs Date Time Temp Pulse Resp B/P (MAP) Pulse Ox O2 Delivery O2 Flow Rate FiO2 08/25/19 13:35 59 145/109 08/25/19 12:51 97 Room Air 08/25/19 10:32 97.5 22 97.5 Assessment & Plan ESRD.ARF: Current FLuid and E-lyte status does not necessitate emergent need for Dialysis. Will re-evaluate for Dialysis in am and continue on [ ] schedule. Anemia: [ ] Epogen [ ] Transfuse [ ] with next HD as needed. HTN: Current BP meds reviewed. See orders for changes. Bone & Mineral: [ ] Discussed Plan of Care and prognosis etc. at length with family. Labs Labs Laboratory Tests Test 08/24/19 18:14 08/25/19 00:30 08/25/19 03:05 08/25/19 04:00 White Blood Count 6.0 x10^3/uL (4.0-11.0) 7.3 x10^3/uL (4.0-11.0) Red Blood Count 5.00 x10^6/uL (4.30-5.70) 4.87 x10^6/uL (4.30-5.70) Hemoglobin 12.2 g/dL (13.0-17.5) 11.7 g/dL (13.0-17.5) Hematocrit 37.4 % (39.0-53.0) 36.5 % (39.0-53.0) Mean Corpuscular Volume 75 fL (79-100) 75 fL (79-100) Mean Corpuscular Hemoglobin 24 pg (25-35) 24 pg (25-35) Mean Corpuscular Hemoglobin Concent 33 g/dL (31-37) 32 g/dL (31-37) Red Cell Distribution Width 20.7 % (11.5-14.5) 20.9 % (11.5-14.5) Platelet Count 224 x10^3/uL (140-400) 224 x10^3/uL (140-400) Neutrophils (%) (Auto) 57 % (31-73) 49 % (31-73) Lymphocytes (%) (Auto) 27 % (24-48) 33 % (24-48) Monocytes (%) (Auto) 14 % (0-9) 15 % (0-9) Eosinophils (%) (Auto) 1 % (0-3) 2 % (0-3) Basophils (%) (Auto) 1 % (0-3) 1 % (0-3) Neutrophils # (Auto) 3.4 x10^3/uL (1.8-7.7) 3.6 x10^3/uL (1.8-7.7) Lymphocytes # (Auto) 1.6 x10^3/uL (1.0-4.8) 2.4 x10^3/uL (1.0-4.8) Monocytes # (Auto) 0.8 x10^3/uL (0.0-1.1) 1.1 x10^3/uL (0.0-1.1) Eosinophils # (Auto) 0.1 x10^3/uL (0.0-0.7) 0.1 x10^3/uL (0.0-0.7) Basophils # (Auto) 0.1 x10^3/uL (0.0-0.2) 0.1 x10^3/uL (0.0-0.2) Platelet Estimate Adequate (ADEQUATE) Large Platelets Occ Polychromasia Slight Hypochromasia Slight Anisocytosis Mod Microcytosis Slight Ovalocytes Few Sodium Level 142 mmol/L (136-145) 142 mmol/L (136-145) Potassium Level 4.5 mmol/L (3.5-5.1) 4.3 mmol/L (3.5-5.1) Chloride Level 105 mmol/L (98-107) 106 mmol/L (98-107) Carbon Dioxide Level 29 mmol/L (21-32) 30 mmol/L (21-32) Anion Gap 8 (6-14) 6 (6-14) Blood Urea Nitrogen 28 mg/dL (8-26) 29 mg/dL (8-26) Creatinine 1.6 mg/dL (0.7-1.3) 1.7 mg/dL (0.7-1.3) Estimated GFR (Cockcroft-Gault) 55.2 51.5 BUN/Creatinine Ratio 18 (6-20) Glucose Level 98 mg/dL (70-99) 76 mg/dL (70-99) Calcium Level 10.4 mg/dL (8.5-10.1) 10.0 mg/dL (8.5-10.1) Magnesium Level 1.9 mg/dL (1.8-2.4) Total Bilirubin 0.3 mg/dL (0.2-1.0) Aspartate Amino Transf (AST/SGOT) 39 U/L (15-37) Alanine Aminotransferase (ALT/SGPT) 37 U/L (16-63) Alkaline Phosphatase 74 U/L (46-116) Troponin I Quantitative 0.117 ng/mL (0.000-0.055) 0.149 ng/mL (0.000-0.055) Total Protein 7.2 g/dL (6.4-8.2) Albumin 3.7 g/dL (3.4-5.0) Albumin/Globulin Ratio 1.1 (1.0-1.7) NP-Leh-O-Type Natriuretic Peptide 595 pg/mL (0-124) Test 08/25/19 09:20 Urine Opiates Screen Pos (NEG) Urine Methadone Screen Neg (NEG) Urine Barbiturates Neg (NEG) Urine Phencyclidine Screen Neg (NEG) Urine Amphetamine/Methamphetamine Neg (NEG) Urine Benzodiazepines Screen Neg (NEG) Urine Cocaine Screen Pos (NEG) Urine Cannabinoids Screen Neg (NEG) Urine Ethyl Alcohol Neg (NEG) Laboratory Tests Test 08/24/19 18:14 08/25/19 00:30 08/25/19 03:05 08/25/19 04:00 White Blood Count 6.0 x10^3/uL (4.0-11.0) 7.3 x10^3/uL (4.0-11.0) Red Blood Count 5.00 x10^6/uL (4.30-5.70) 4.87 x10^6/uL (4.30-5.70) Hemoglobin 12.2 g/dL (13.0-17.5) 11.7 g/dL (13.0-17.5) Hematocrit 37.4 % (39.0-53.0) 36.5 % (39.0-53.0) Mean Corpuscular Volume 75 fL (79-100) 75 fL (79-100) Mean Corpuscular Hemoglobin 24 pg (25-35) 24 pg (25-35) Mean Corpuscular Hemoglobin Concent 33 g/dL (31-37) 32 g/dL (31-37) Red Cell Distribution Width 20.7 % (11.5-14.5) 20.9 % (11.5-14.5) Platelet Count 224 x10^3/uL (140-400) 224 x10^3/uL (140-400) Neutrophils (%) (Auto) 57 % (31-73) 49 % (31-73) Lymphocytes (%) (Auto) 27 % (24-48) 33 % (24-48) Monocytes (%) (Auto) 14 % (0-9) 15 % (0-9) Eosinophils (%) (Auto) 1 % (0-3) 2 % (0-3) Basophils (%) (Auto) 1 % (0-3) 1 % (0-3) Neutrophils # (Auto) 3.4 x10^3/uL (1.8-7.7) 3.6 x10^3/uL (1.8-7.7) Lymphocytes # (Auto) 1.6 x10^3/uL (1.0-4.8) 2.4 x10^3/uL (1.0-4.8) Monocytes # (Auto) 0.8 x10^3/uL (0.0-1.1) 1.1 x10^3/uL (0.0-1.1) Eosinophils # (Auto) 0.1 x10^3/uL (0.0-0.7) 0.1 x10^3/uL (0.0-0.7) Basophils # (Auto) 0.1 x10^3/uL (0.0-0.2) 0.1 x10^3/uL (0.0-0.2) Platelet Estimate Adequate (ADEQUATE) Large Platelets Occ Polychromasia Slight Hypochromasia Slight Anisocytosis Mod Microcytosis Slight Ovalocytes Few Sodium Level 142 mmol/L (136-145) 142 mmol/L (136-145) Potassium Level 4.5 mmol/L (3.5-5.1) 4.3 mmol/L (3.5-5.1) Chloride Level 105 mmol/L (98-107) 106 mmol/L (98-107) Carbon Dioxide Level 29 mmol/L (21-32) 30 mmol/L (21-32) Anion Gap 8 (6-14) 6 (6-14) Blood Urea Nitrogen 28 mg/dL (8-26) 29 mg/dL (8-26) Creatinine 1.6 mg/dL (0.7-1.3) 1.7 mg/dL (0.7-1.3) Estimated GFR (Cockcroft-Gault) 55.2 51.5 BUN/Creatinine Ratio 18 (6-20) Glucose Level 98 mg/dL (70-99) 76 mg/dL (70-99) Calcium Level 10.4 mg/dL (8.5-10.1) 10.0 mg/dL (8.5-10.1) Magnesium Level 1.9 mg/dL (1.8-2.4) Total Bilirubin 0.3 mg/dL (0.2-1.0) Aspartate Amino Transf (AST/SGOT) 39 U/L (15-37) Alanine Aminotransferase (ALT/SGPT) 37 U/L (16-63) Alkaline Phosphatase 74 U/L (46-116) Troponin I Quantitative 0.117 ng/mL (0.000-0.055) 0.149 ng/mL (0.000-0.055) Total Protein 7.2 g/dL (6.4-8.2) Albumin 3.7 g/dL (3.4-5.0) Albumin/Globulin Ratio 1.1 (1.0-1.7) PV-Cvo-T-Type Natriuretic Peptide 595 pg/mL (0-124) Test 08/25/19 09:20 Urine Opiates Screen Pos (NEG) Urine Methadone Screen Neg (NEG) Urine Barbiturates Neg (NEG) Urine Phencyclidine Screen Neg (NEG) Urine Amphetamine/Methamphetamine Neg (NEG) Urine Benzodiazepines Screen Neg (NEG) Urine Cocaine Screen Pos (NEG) Urine Cannabinoids Screen Neg (NEG) Urine Ethyl Alcohol Neg (NEG) Review All relevant outside records, renal labs, imaging studies, telemetry/EKG's were reviewed. JOSE E BRUMFIELD MD Aug 25, 2019 13:53
[2019-08-25] MEDS ORDERED: hydrALAZINE 25 MG TABLET PO SCH (14:00)
[2019-08-25 14:29] VITALS: BP 151/78
--- NOTE | 2019-08-28 11:44 | DS ---
DATE OF DISCHARGE: 08/25/2019 CHIEF COMPLAINT: Chest pain. DISCHARGE DIAGNOSIS: Atypical chest pain. CONSULTS: Cardiology and Nephrology. PROCEDURES: None. HOSPITAL COURSE: The patient is a pleasant middle-aged male, who presented with chest pain. His troponin was slightly elevated at 0.1. We admitted the patient. We consulted Cardiology and did cardiac monitoring. Repeat check of troponin stayed around 0.1. Cardiology felt like this was probably atypical chest pain, but he did have a history of cocaine use as well, so perhaps this could have contributed. On day #2, basically the patient is at his baseline. He wanted to go home. We discharged to home with close outpatient followup. DISPOSITION: Home. ACTIVITY: As tolerated. DIET: Low sodium. MEDICATIONS: Please see MRAD. TOTAL TIME: 32 minutes. KARLY MITCHELL DO DR: LORRIE/kathryn JOB#: [id number] / [id number]
--- NOTE | 2019-08-28 12:34 | SSS ---
ADMIT DATE: 08/25/2019 CHIEF COMPLAINT: Chest pain. DISCHARGE DIAGNOSIS: Atypical chest pain. CONSULTS: Cardiology and Nephrology. PROCEDURES: None. HOSPITAL COURSE: The patient is a pleasant middle-aged male, who presented with chest pain. His troponin was slightly elevated at 0.1. We admitted the patient. We consulted Cardiology and did cardiac monitoring. Repeat check of troponin stayed around 0.1. Cardiology felt like this was probably atypical chest pain, but he did have a history of cocaine use as well, so perhaps this could have contributed. On day #2, basically the patient is at his baseline. He wanted to go home. We discharged to home with close outpatient followup. DISPOSITION: Home. ACTIVITY: As tolerated. DIET: Low sodium. MEDICATIONS: Please see MRAD. TOTAL TIME: 32 minutes. KARLY MITCHELL DO DR: LORRIE/kathryn JOB#: [id number] / [id number]
== END 2019-08-25 16:14 | disposition home or self-care (01) | DRG 918 ==
LOC: ER 17:38 → 2 SOUTH 18:41
PROVIDERS: ADMIT Family Medicine; ATTEND Family Medicine
DX: T40.5X1A Poisoning by cocaine, accidental (unintentional), initial encounter (principal); I13.0 Hypertensive heart and chronic kidney disease with heart failure and stage 1 through stage 4 chronic kidney disease, or unspecified chronic kidney disease; N18.4 Chronic kidney disease, stage 4 (severe); K27.9 Peptic ulcer, site unspecified, unspecified as acute or chronic, without hemorrhage or perforation; E78.00 Pure hypercholesterolemia, unspecified; F14.90 Cocaine use, unspecified, uncomplicated; G47.30 Sleep apnea, unspecified; I25.10 Atherosclerotic heart disease of native coronary artery without angina pectoris; I25.2 Old myocardial infarction; I50.9 Heart failure, unspecified; J44.9 Chronic obstructive pulmonary disease, unspecified; Z86.73 Personal history of transient ischemic attack (TIA), and cerebral infarction without residual deficits; Z87.891 Personal history of nicotine dependence; Z88.8 Allergy status to other drugs, medicaments and biological substances; R07.89 Other chest pain
CPT/HCPCS: 36415; 71045; 80048; 80053; 80307; 83735; 83880; 84484; 85025; 93005; 96374; J2270; 99285-25; G0378

== ENCOUNTER 2022-02-25 07:41 | Emergency (ER) | payer SELFPAY ==
[~2022-02-25] VITALS: Ht 182.9 cm; Wt 115.9 kg
[~2022-02-25 07:41] MED LIST changes: +AMLO-187 PO; -AMLO10TA8 PO; +CARV25TA2 PO; -CETI10TA22 PO; +CETI10TA74 PO; -ISOS30TA4 PO; +ISOS30TA68 PO; -LISI1TAB20 PO; +LISI1TAB39 PO; +PANT40TA77 PO
[2022-02-25] MEDS ORDERED: IPRATRPIUM/ALBUTEROL 0.5/2.5MG 3 ML NEBU. NEB ONE ×2 (08:15→08:45)
--- NOTE | 2022-02-25 08:37 | RAD ---
EXAMINATION: XR CHEST 1V. HISTORY: 56 years Male Reason: SOB / . . COMPARISON: August 24, 2019. Findings: There is a cardiomegaly. There is mild prominence of interstitial markings which could be r elated to vascular congestion with no focal airspace consolidation. There is no effusion or pneumotho rax. The mediastinum and soumya appear unremarkable. Impression: Cardiomegaly with the mild vascular congestion. Electronically signed by: Damaso Reyna MD (02/25/2022 8:35 AM) [id number]
[2022-02-25 08:38] LABS: BASO # 0.1 x10^3/uL (0.0-0.2); BASO % 1 % (0-3); EOS # 0.1 x10^3/uL (0.0-0.7); EOS % 1 % (0-3); HEMOGLOBIN 15.4 g/dL (13.0-17.5); LYMPH # 2.7 x10^3/uL (1.0-4.8); LYMPH % 24 % (24-48); MEAN CORPUSCULAR HEMOGLOBIN 26 pg (25-35); MEAN CORPUSCULAR HGB CONC 33 g/dL (31-37); MEAN CORPUSCULAR VOLUME 79 fL (79-100); MONO # 1.2 x10^3/uL (0.0-1.1); MONO % 11 % (0-9); NEUT # 6.9 x10^3/uL (1.8-7.7); NEUT % 63 % (31-73); PLATELET COUNT 215 x10^3/uL (140-400); RED BLOOD COUNT 5.99 x10^6/uL (4.30-5.70); RED CELL DISTRIBUTION WIDTH 16.8 % (11.5-14.5); WHITE BLOOD COUNT 10.9 x10^3/uL (4.0-11.0)
[2022-02-25] MEDS ORDERED: methylPREDNISolone SOD SUCC PF 125 MG/2 ML VIAL. IV ONE (08:45)
[2022-02-25] MEDS ORDERED: FUROSEMIDE 20 MG/2 ML VIAL. IVP ONE (08:45)
[2022-02-25 08:50] LABS: CALCIUM 9.2 mg/dL (8.5-10.1); CREATININE 1.7 mg/dL (0.7-1.3); GFR 51.1; POTASSIUM 4.3 mmol/L (3.5-5.1)
[2022-02-25 09:03] LABS: ALBUMIN 3.3 g/dL (3.4-5.0); TOTAL BILIRUBIN 0.7 mg/dL (0.2-1.0); TOTAL PROTEIN 6.6 g/dL (6.4-8.2)
[2022-02-25] MEDS ORDERED: hydrALAZINE 20 MG/ML VIAL. ONE (10:21)
[2022-02-25] MEDS ORDERED: hydrALAZINE 20 MG/ML VIAL. IVP ONE (10:30)
[2022-02-25 11:06] LABS: BARBITURATES NEG (NEG); BENZODIAZEPINES NEG (NEG); CANNABINOIDS NEG (NEG); COCAINE NEG (NEG); METHADONE NEG (NEG); OPIATES NEG (NEG); PHENCYCLIDINE NEG (NEG)
[2022-02-25 11:07] LABS: AMPHETAMINE/METHAMPHETAMINE NEG (NEG)
[2022-02-25] MEDS ORDERED: FURO20TA3 PO (13:09)
[2022-02-25] MEDS ORDERED: PRED50TA PO (13:09)
--- NOTE | 2022-02-25 13:20 | PHYS DOC ---
Past Medical History Past Medical History: Angina, Asthma, CHF, COPD, CVA, High Cholesterol, Hypertension, PR, Renal Disease Additional Past Medical Histor: MURMUR, CATH WITH STENT, ULCER, SLEEP APNEA Past Surgical History: No Surgical History Additional Past Surgical Histo: cardiac cath with stent placement IN 2019 Smoking Status: Current Every Day Smoker Alcohol Use: None Drug Use: None General Adult EDM: Chief Complaint: SHORTNESS OF BREATH HPI: HPI: Patient is a 56 year old M who presents with acute shortness of breath. Patient has hx of COPD and CHF, pt states it doesn't feel like CHF. Patient stated that this has been going on for several weeks now. He states that his albuterol does not help very much. He states that Lasix was stopped several weeks ago by his primary care doctor. He is not seeing any primary doctor right now because he lost his insurance. Otherwise he is doing well and feels stable he just feels a little bit short of breath. Review of Systems: Review of Systems: Constitutional: Denies fever or chills. Eyes: Denies change in visual acuity. HENT: Denies nasal congestion or sore throat. Respiratory: +cough or shortness of breath. Cardiovascular: Denies chest pain or edema. GI: Denies abdominal pain, nausea, vomiting, bloody stools or diarrhea. : Denies dysuria. Musculoskeletal: Denies back pain or joint pain. Integument: Denies rash. Neurologic: Denies headache, focal weakness or sensory changes. Endocrine: Denies polyuria or polydipsia. Lymphatic: Denies swollen glands. Psychiatric: Denies depression or anxiety. Heart Score: C/O Chest Pain: No Risk Factors: Risk Factors: DM, Current or recent (<one month) smoker, HTN, HLP, family history of CAD, obesity. Risk Scores: Score 0 - 3: 2.5% MACE over next 6 weeks - Discharge Home Score 4 - 6: 20.3% MACE over next 6 weeks - Admit for Clinical Observation Score 7 - 10: 72.7% MACE over next 6 weeks - Early Invasive Strategies Current Medications: Current Medications Medications (Trade) Dose Ordered Sig/Deepa Start Time Stop Time Status Last Admin Dose Admin Albuterol/ Ipratropium (Duoneb) 3 ml 1X ONCE 02/25/22 08:45 02/25/22 08:46 DC 02/25/22 08:49 3 ML Furosemide (Lasix) 20 mg 1X ONCE 02/25/22 08:45 02/25/22 08:51 DC 02/25/22 09:05 20 MG Hydralazine HCl (Apresoline Inj) 10 mg 1X ONCE 02/25/22 10:30 02/25/22 10:31 DC 02/25/22 10:27 10 MG Methylprednisolone Sodium Succinate (SOLU-Medrol 125MG VIAL) 80 mg 1X ONCE 02/25/22 08:45 02/25/22 08:47 DC 02/25/22 09:05 80 MG Allergies: Allergies: Allergies Coded Allergies Type Severity Reaction Last Updated Verified lisinopril Allergy Severe Swelling 08/09/18 Yes Physical Exam: PE: Constitutional: Well developed, well nourished, no acute distress, non-toxic appearance. HENT: Normocephalic, atraumatic, bilateral external ears normal, oropharynx moist, no oral exudates, nose normal. Eyes: PERRLA, EOMI, conjunctiva normal, no discharge. Neck: Normal range of motion, no tenderness, supple, no stridor. Cardiovascular:Heart rate regular rhythm, no murmur Lungs & Thorax: Bilateral breath sounds diminished with minimal wheezes, improved after duoneb treatment Abdomen: Bowel sounds normal, soft, no tenderness, no masses, no pulsatile masses. Skin: Warm, dry, no erythema, no rash. Back: No tenderness, no CVA tenderness. Extremities: No tenderness, no cyanosis, no clubbing, ROM intact, no edema. Neurologic: Alert and oriented X 3, normal motor function, normal sensory function, no focal deficits noted. Psychologic: Affect normal, judgement normal, mood normal. Current Patient Data: Labs: Laboratory Tests Test 02/25/22 08:00 02/25/22 08:28 02/25/22 10:42 02/25/22 10:45 White Blood Count 10.9 x10^3/uL (4.0-11.0) Red Blood Count 5.99 x10^6/uL (4.30-5.70) H Hemoglobin 15.4 g/dL (13.0-17.5) Hematocrit 47.0 % (39.0-53.0) Mean Corpuscular Volume 79 fL (79-100) Mean Corpuscular Hemoglobin 26 pg (25-35) Mean Corpuscular Hemoglobin Concent 33 g/dL (31-37) Red Cell Distribution Width 16.8 % (11.5-14.5) H Platelet Count 215 x10^3/uL (140-400) Neutrophils (%) (Auto) 63 % (31-73) Lymphocytes (%) (Auto) 24 % (24-48) Monocytes (%) (Auto) 11 % (0-9) H Eosinophils (%) (Auto) 1 % (0-3) Basophils (%) (Auto) 1 % (0-3) Neutrophils # (Auto) 6.9 x10^3/uL (1.8-7.7) Lymphocytes # (Auto) 2.7 x10^3/uL (1.0-4.8) Monocytes # (Auto) 1.2 x10^3/uL (0.0-1.1) H Eosinophils # (Auto) 0.1 x10^3/uL (0.0-0.7) Basophils # (Auto) 0.1 x10^3/uL (0.0-0.2) Sodium Level 138 mmol/L (136-145) Potassium Level 4.3 mmol/L (3.5-5.1) Chloride Level 104 mmol/L (98-107) Carbon Dioxide Level 25 mmol/L (21-32) Anion Gap 9 (6-14) Blood Urea Nitrogen 27 mg/dL (8-26) H Creatinine 1.7 mg/dL (0.7-1.3) H Estimated GFR (Cockcroft-Gault) 51.1 BUN/Creatinine Ratio 16 (6-20) Glucose Level 124 mg/dL (70-99) H Calcium Level 9.2 mg/dL (8.5-10.1) Total Bilirubin 0.7 mg/dL (0.2-1.0) Aspartate Amino Transferase (AST) 54 U/L (15-37) H Alanine Aminotransferase (ALT) 68 U/L (16-63) H Alkaline Phosphatase 65 U/L (46-116) Troponin I High Sensitivity 332 ng/L (4-75) H 284 ng/L (4-75) H Total Protein 6.6 g/dL (6.4-8.2) Albumin 3.3 g/dL (3.4-5.0) L Albumin/Globulin Ratio 1.0 (1.0-1.7) Lactic Acid Level 0.5 mmol/L (0.4-2.0) Urine Opiates Screen Neg (NEG) Urine Methadone Screen Neg (NEG) Urine Barbiturates Neg (NEG) Urine Phencyclidine Screen Neg (NEG) Urine Amphetamine/Methamphetamine Neg (NEG) Urine Benzodiazepines Screen Neg (NEG) Urine Cocaine Screen Neg (NEG) Urine Cannabinoids Screen Neg (NEG) Urine Ethyl Alcohol Neg (NEG) Laboratory Tests 02/25/22 08:00 Laboratory Tests 02/25/22 08:00 Vital Signs: Vital Signs Date Time Temp Pulse Resp B/P (MAP) Pulse Ox O2 Delivery O2 Flow Rate FiO2 02/25/22 10:53 96 20 147/108 (121) 94 02/25/22 08:50 Room Air 02/25/22 07:59 97.9 97.9 EKG: EKG: no acute changes, pvc's noted, possible old PR Radiology/Procedures: Radiology/Procedures: Chest x-ray with evidence of congestion and cardiomegaly Impression: COPD exacerbation with CHF exacerbation Course & Med Decision Making: Course & Med Decision Making Pertinent Labs and Imaging studies reviewed. (See chart for details) Patient was given duo nebs x2, patient states that he felt much better after receiving DuoNeb. He was also given Lasix x120 mg. Patient states he was able to urinate several times. He states he feels much better after receiving treatment. 56-year-old male with poor medical care, presents with COPD exacerbation as well as CHF exacerbation. Patient returned to baseline after receiving DuoNeb treatment as well as Lasix. He will be given steroid treatment outpatient and given ER precautions. Patient states that he feels much better after receiving DuoNeb. Patient left AMA, his troponin was elevated to 330 and came down to 280. Dr. Caro was going to assess the patient, however the patient felt much better and decided to leave AMA. I advised that this would not be a esposito decision, however the patient insisted on leaving. I prescribed his medications that I recommended and advised him to follow-up with his primary care physician. Unfortunately at this time, patient does not have a primary care physician due to insurance changes. Patient stated that he would try to figure something out. Patient was in stable condition upon discharge. Dragon Disclaimer: Dragon Disclaimer: This electronic medical record was generated, in whole or in part, using a voice recognition dictation system. Departure Departure Impression: Primary Impression: COPD (chronic obstructive pulmonary disease) Additional Impressions: Elevated troponin I level Left against medical advice Shortness of breath CHF (congestive heart failure) Disposition: 07 LEFT AGAINST MEDICAL ADVICE Condition: GOOD Referrals: NO PCP (PCP) Patient Instructions: Chronic Obstructive Pulmonary Disease Exacerbation, [id number] Additional Instructions: Please follow up with PCP in 1 week I have sent you medications to your pharmacy Scripts Furosemide (FUROSEMIDE) 20 Mg Tablet 1 TAB PO DAILY for 28 Days, #28 TAB 1 Refill Prov: EDIS ROJO MD 02/25/22 Prednisone (PREDNISONE) 50 Mg Tablet 1 TAB PO DAILY, #7 TAB Prov: EDIS ROJO MD 02/25/22 EDIS ROJO MD Feb 25, 2022 13:20
[2022-02-25 13:23] VITALS: BP 168/99
== END 2022-02-25 13:24 | disposition left against medical advice (07) ==
LOC: ER 07:41
DX: J44.1 Chronic obstructive pulmonary disease with (acute) exacerbation (principal); R77.8 Other specified abnormalities of plasma proteins; R06.02 Shortness of breath; Z53.29 Procedure and treatment not carried out because of patient's decision for other reasons; J45.909 Unspecified asthma, uncomplicated; E78.00 Pure hypercholesterolemia, unspecified; I13.0 Hypertensive heart and chronic kidney disease with heart failure and stage 1 through stage 4 chronic kidney disease, or unspecified chronic kidney disease; N18.9 Chronic kidney disease, unspecified; I50.9 Heart failure, unspecified; Z86.73 Personal history of transient ischemic attack (TIA), and cerebral infarction without residual deficits; I25.2 Old myocardial infarction; F17.200 Nicotine dependence, unspecified, uncomplicated; Z95.5 Presence of coronary angioplasty implant and graft; Z88.6 Allergy status to analgesic agent
CPT/HCPCS: 36415; 71045; 80053; 80307; 83605; 84484; 85025; 94640; 96374; 96375; 99284; J0360; J1940; J2930